=== PATIENT | female | born 1945 | race Caucasian/White ===

== ENCOUNTER 2017-12-08 17:15 | Inpatient (IN) | payer MEDICARE, OTHER ==
[~2017-12-08] VITALS: Ht 165.1 cm; Wt 97.1 kg
[~2017-12-08 17:15] MED LIST: ACET325T9 PO; ACET500T33 PO; ACET500T68 PO; ALEN70TA3 PO; ALEN70TA5 PO; ASPI-630 PO; ATOR10TA PO; ATOR10TA60 PO; BUSP10TA PO; BUSP15TA PO; CALC500T13 PO; CALC650T6 PO; CHOL20002 PO; CHOL500050 PO; CLON0.5T3 PO; CRAN1TAB6 PO; DEXT1CAP PO; DIVA125C PO; DIVA250T PO; DOCU-109 PO; FAMO-63 PO; FENO54TA PO; FLUV25TA PO; HYDR25SU18 RC; INSU100I11 SQ; INSU100I17 SQ; INSU100V13 SQ; INSU100V8 SQ; LACT1CAP6 PO; LEVO25TA4 PO; LISI-377 PO; LORA0.5T96 PO; MAG30ORA2 PO; MAGN400O7 PO; MELA5TAB PO; MENT71OI TP; METH29OI TP; MULT1TAB52 PO; NYST15PO9 TP; OXCA300T PO; QUET25TA5 PO; QUET50TA5 PO; TRAM50TA PO; TRAZ50TA15 PO; TRIA15CR3 TP; VENL150C PO; WITC1MED18 TP; [UNRECOGNIZED DRUG - CODE] PO
[2017-12-08] MEDS ORDERED: QUET25TA5 PO (18:24)
[2017-12-08] MEDS ORDERED: PEPPERMINT OIL PO (18:24)
[2017-12-08] MEDS ORDERED: LACT1CAP2 PO (18:24)
[2017-12-08] MEDS ORDERED: OMEP20CA9 PO (18:24)
[2017-12-08] MEDS ORDERED: QUET25TA PO (18:24)
[2017-12-08 18:30] LABS: BASO % 1 % (0-3); EOS # 0.3 x10^3/uL (0.0-0.7); EOS % 3 % (0-3); HEMATOCRIT 40.5 % (36.0-47.0); HEMOGLOBIN 13.8 g/dL (12.0-15.5); LYMPH # 2.4 x10^3/uL (1.0-4.8); LYMPH % 26 % (24-48); MEAN CORPUSCULAR HEMOGLOBIN 31 pg (25-35); MEAN CORPUSCULAR HGB CONC 34 g/dL (31-37); MEAN CORPUSCULAR VOLUME 90 fL (79-100); MONO # 0.4 x10^3/uL (0.0-1.1); MONO % 5 % (0-9); NEUT % 66 % (31-73); PLATELET COUNT 144 x10^3/uL (140-400); RED BLOOD COUNT 4.51 x10^6/uL (3.50-5.40); WHITE BLOOD COUNT 9.1 x10^3/uL (4.0-11.0)
[2017-12-08 18:32] LABS: ALBUMIN 3.6 g/dL (3.4-5.0); ALK PHOS 85 U/L (46-116); ALT (SGPT) 47 U/L (14-59); ANION GAP 8 (6-14); AST (SGOT) 33 U/L (15-37); BLOOD UREA NITROGEN 14 mg/dL (7-20); BUN/CREATININE RATIO 23 (6-20); CALCIUM 9.5 mg/dL (8.5-10.1); CARBON DIOXIDE 29 mmol/L (21-32); CHLORIDE 104 mmol/L (98-107); CREATININE 0.6 mg/dL (0.6-1.0); GFR 98.5; GLUCOSE 128 mg/dL (70-99); MAGNESIUM 1.7 mg/dL (1.8-2.4); SODIUM 141 mmol/L (136-145); TOTAL BILIRUBIN 0.4 mg/dL (0.2-1.0); TOTAL PROTEIN 7.3 g/dL (6.4-8.2)
[2017-12-08 18:33] LABS: VAL ACID < 3 mcg/mL (50-100)
[2017-12-08 18:34] LABS: POTASSIUM 3.9 mmol/L (3.5-5.1)
--- NOTE | 2017-12-08 18:38 | EKG ---
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
[2017-12-08 21:10] LABS: CLARITY,URINE HAZY; COLOR,URINE YELLOW
[2017-12-08 21:12] LABS: BACTERIA,URINE MANY /HPF (0-FEW); BILIRUBIN,URINE NEG (NEG); GLUCOSE,URINE NEG (NEG); NITRITE,URINE NEG (NEG); SQUAMOUS EPITHELIAL CELL,UR MOD /LPF; UROBILINOGEN,URINE 0.2 mg/dL (0.2 mg/dL)
[2017-12-08] MEDS ORDERED: NYST60PO TP (21:40)
[2017-12-08] MEDS ORDERED: INSU100I17 SQ ×3 (21:40)
[2017-12-08] MEDS ORDERED: TRIA15CR50 TP (21:40)
[2017-12-08] MEDS ORDERED: QUEtiapine 25 MG TABLET. PO PRN (21:45)
--- NOTE | 2017-12-08 21:52 | PDOC ---
Exam Note: Marcelo Note: Please also refer to the separate dictated note~for this date of service dictated separately.~Patient seen individually. Discussed the patient with Nursing staff reviewed the chart.~Reviewed interim history and current functioning. Reviewed vital signs,~Labs/ Radiology~and current medications noted below. Continue current treatment with the changes noted in the dictated addendum note Assessment: Vital Signs: Vital Signs Date Time Temp Pulse Resp B/P (MAP) Pulse Ox O2 Delivery O2 Flow Rate FiO2 12/08/17 17:15 98.1 96 99 Room Air Labs: Laboratory Tests Test 12/08/17 17:43 12/08/17 20:27 White Blood Count 9.1 x10^3/uL (4.0-11.0) Red Blood Count 4.51 x10^6/uL (3.50-5.40) Hemoglobin 13.8 g/dL (12.0-15.5) Hematocrit 40.5 % (36.0-47.0) Mean Corpuscular Volume 90 fL (79-100) Mean Corpuscular Hemoglobin 31 pg (25-35) Mean Corpuscular Hemoglobin Concent 34 g/dL (31-37) Red Cell Distribution Width 14.0 % (11.5-14.5) Platelet Count 144 x10^3/uL (140-400) Neutrophils (%) (Auto) 66 % (31-73) Lymphocytes (%) (Auto) 26 % (24-48) Monocytes (%) (Auto) 5 % (0-9) Eosinophils (%) (Auto) 3 % (0-3) Basophils (%) (Auto) 1 % (0-3) Neutrophils # (Auto) 6.0 x10^3uL (1.8-7.7) Lymphocytes # (Auto) 2.4 x10^3/uL (1.0-4.8) Monocytes # (Auto) 0.4 x10^3/uL (0.0-1.1) Eosinophils # (Auto) 0.3 x10^3/uL (0.0-0.7) Basophils # (Auto) 0.0 x10^3/uL (0.0-0.2) Sodium Level 141 mmol/L (136-145) Potassium Level 3.9 mmol/L (3.5-5.1) Chloride Level 104 mmol/L (98-107) Carbon Dioxide Level 29 mmol/L (21-32) Anion Gap 8 (6-14) Blood Urea Nitrogen 14 mg/dL (7-20) Creatinine 0.6 mg/dL (0.6-1.0) Estimated GFR (Cockcroft-Gault) 98.5 BUN/Creatinine Ratio 23 (6-20) H Glucose Level 128 mg/dL (70-99) H Calcium Level 9.5 mg/dL (8.5-10.1) Magnesium Level 1.7 mg/dL (1.8-2.4) L Total Bilirubin 0.4 mg/dL (0.2-1.0) Aspartate Amino Transferase (AST) 33 U/L (15-37) Alanine Aminotransferase (ALT) 47 U/L (14-59) Alkaline Phosphatase 85 U/L (46-116) Total Protein 7.3 g/dL (6.4-8.2) Albumin 3.6 g/dL (3.4-5.0) Albumin/Globulin Ratio 1.0 (1.0-1.7) Valproic Acid Level < 3 mcg/mL (50-100) L Valproic Acid Last Dose Date 12/08/17 Valproic Acid Last Dose Time 0800 Urine Collection Type Unknown Urine Color Yellow Urine Clarity Hazy Urine pH 6.0 Urine Specific [place] 1.015 Urine Protein Neg (NEG-TRACE) Urine Glucose (UA) Neg mg/dL (NEG) Urine Ketones (Stick) Neg mg/dL (NEG) Urine Blood Neg (NEG) Urine Nitrite Neg (NEG) Urine Bilirubin Neg (NEG) Urine Urobilinogen Dipstick 0.2 mg/dL (0.2 mg/dL) Urine Leukocyte Esterase Small (NEG) Urine RBC 1-2 /HPF (0-2) Urine WBC 5-10 /HPF (0-4) Urine Squamous Epithelial Cells Mod /LPF Urine Bacteria Many /HPF (0-FEW) Urine Mucus Slight /LPF Current Medications: Meds: Current Medications Clonazepam (KlonoPIN) 0.5 mg BID@1200,2100 PO ; Start 12/09/17 at 12:00; Status UNV Quetiapine Fumarate (SEROquel) 25 mg TID PO ; Start 12/09/17 at 09:00; Status UNV Quetiapine Fumarate (SEROquel) 25 mg PRN Q2HR PRN PO ANXIETY / AGITATION; Start 12/08/17 at 21:45; Status UNV Trazodone HCl (Desyrel) 50 mg TIDWMEALS PO ; Start 12/09/17 at 08:00; Status UNV Melatonin 6 mg PRN QHS PRN PO INSOMNIA; Start 12/08/17 at 21:45; Status UNV Active Scripts Active Reported Triamcinolone Acetonide 15 Gm Cream..g. 1 Porsche TP PRN TID PRN Nystop (Nystatin) 60 Gm Powder 1 Porsche TP PRN TID PRN Novolog Flexpen (Insulin Aspart) 100 Unit/1 Ml Insuln.pen 25 Unit SQ DAILYBFRLUN Novolog Flexpen (Insulin Aspart) 100 Unit/1 Ml Insuln.pen 15 Unit SQ DAILYWSUP Novolog Flexpen (Insulin Aspart) 100 Unit/1 Ml Insuln.pen 10 Unit SQ DAILYWBKFT [IBgard pepermint oil] 90mg Cap 90 Mg PO TIDWMEALS Omeprazole 20 Mg Capsule.dr 20 Mg PO DAILY06 Seroquel (Quetiapine Fumarate) 25 Mg Tablet 25 Mg PO PRN Q2HR PRN Quetiapine Fumarate 25 Mg Tablet 25 Mg PO TID Trazodone Hcl 50 Mg Tablet 50 Mg PO TIDWMEALS Clonazepam 0.5 Mg Tablet 0.5 Mg PO BID@1200,2100 Calmoseptine Ointment (Menthol/Zinc Oxide) 71 Gm Oint...g. 1 Porsche TP PRN PRN Anusol-Hc (Hydrocortisone Acetate) 25 Mg Supp.rect 25 Mg RC PRN DAILY PRN Probiotic (Lactobacillus Acidophilus) 1 Each Capsule 1 Cap PO BID Lantus (Insulin Glargine,Hum.rec.anlog) 100 Unit/1 Ml Vial 45 Units SQ QHS Analgesic [place] (Methyl Salicylate/Menthol) 29 Gm Oint...g. 1 Porsche TP PRN QID PRN Mag-Al Plus Xs Suspension (Mag Hydrox/Al Hydrox/Simeth) 30 Ml Oral.susp 15 Ml PO PRN BFRMEALHC PRN Levothyroxine Sodium 25 Mcg Tablet 25 Mcg PO DAILY06 Melatonin 5 Mg Tablet 5 Mg PO PRN QHS PRN Colace (Docusate Sodium) 100 Mg Capsule 100 Mg PO PRN BID PRN Hold for Loose stools Milk Of Magnesia (Magnesium Hydroxide) 400 Mg/5 Ml Oral.susp 2,400 Mg PO PRN QHS PRN Vitamin D3 (Cholecalciferol (Vitamin D3)) 50,000 Unit Capsule 50,000 Unit PO QMONTH Administer on the 15th of every Month Zestril (Lisinopril) 10 Mg Tablet 10 Mg PO DAILY Hold for SBP less than 100. After a held dose, reassess in 2 hours. If SBP is above threshold admminister dose as ordered. If SBP is below threshold, contact provider for additional instructions Oyster Shell Calcium (Calcium Carbonate) 500 Mg Tablet 1,000 Mg PO DAILY Multivitamins (Multivitamin) 1 Each Tablet 1 Tab PO DAILYWSUP Fenofibrate 54 Mg Tablet 54 Mg PO QHS I have reviewed the current psychotropics carefully including drug interactions. Risk benefit ratio favors no change other than as noted in my dictated progress note. Diagnosis: Problems: (1) Dementia (2) Anxiety (3) IMPULSE DISORDER, UNSPECIFIED (4) Obsessive compulsive disorder (5) Dementia (6) Impulse control disorder (7) Medical clearance for psychiatric admission (8) Intellectual disability IDA LAINEZ MD Dec 08, 2017 21:52
[2017-12-08 22:02] VITALS: BP 139/66
[2017-12-08] MEDS: MELATONIN 3 MG TABLET PO PRN (22:03)
[2017-12-08] MEDS: clonazePAM 0.5 MG TABLET PO SCH (22:03)
[2017-12-08] MEDS: QUEtiapine 25 MG TABLET. PO SCH (22:03)
[2017-12-08] MEDS ORDERED: HYDROCORTISONE ACETATE 25 MG SUPP.RECT RC PRN (22:30)
[2017-12-08] MEDS ORDERED: MAG HYDROX/AL HYDROX/SIMETH 30 ML ORAL.SUSP PO PRN (22:30)
[2017-12-08] MEDS ORDERED: DOCUSATE SODIUM 100 MG CAPSULE PO PRN (22:30)
[2017-12-08] MEDS ORDERED: METHYL SALICYLATE/MENTHOL TOPICAL OINTMENT 29GM TUBE. TP PRN (22:30)
[2017-12-08] MEDS ORDERED: TRIAMCINOLONE ACETONIDE 0.5% TOPICAL CREAM 15GM TUBE. TP PRN (22:30)
[2017-12-08] MEDS ORDERED: MAGNESIUM HYDROXIDE 2,400 MG/30 ML ORAL.SUSP. PO PRN (22:30)
[2017-12-08] MEDS ORDERED: NYSTATIN TOPICAL POWDER 15GM BOTTLE. TP PRN (22:30)
[2017-12-08] MEDS ORDERED: MENTHOL/ZINC OXIDE TOPICAL OINTMENT 113GM JAR. TP PRN (22:30)
[2017-12-08 22:44] VITALS: BP 139/66
[2017-12-09] MEDS: LEVOTHYROXINE 25 MCG TABLET. PO SCH (05:53)
[2017-12-09 06:00] VITALS: BP 132/46
[2017-12-09] MEDS ORDERED: PEPPERMINT OIL PO SCH (08:00)
[2017-12-09] MEDS: LISINOPRIL 10 MG TABLET PO SCH (09:00)
[2017-12-09] MEDS ORDERED: FENOFIBRATE NANOCRYSTALLIZED 48 MG TABLET PO ONE (09:00)
[2017-12-09] MEDS ORDERED: MULTIVITAMIN with MINERAL TABLET. ONE (09:00)
[2017-12-09] MEDS: PANTOPRAZOLE 40 MG TABLET. PO SCH (09:15)
[2017-12-09] MEDS: traZODone 50 MG TABLET. PO SCH ×3 (09:15→17:36)
[2017-12-09] MEDS: CEPHALEXIN 250 MG CAPSULE PO SCH ×2 (09:16→20:13)
[2017-12-09] MEDS: INSULIN ASPART 300 UNITS/3 ML INSULN.PEN SQ SCH ×3 (09:16→17:35)
[2017-12-09] MEDS: CALCIUM CARBONATE 500 MG TABLET PO SCH (09:16)
[2017-12-09] MEDS: LACTOBACILLUS RHAMNOSUS GG 1 CAPSULE. PO SCH ×2 (09:16→20:13)
[2017-12-09 09:22] VITALS: BP 110/55
[2017-12-09] MEDS: QUEtiapine 25 MG TABLET. PO SCH ×3 (09:22→20:13)
[2017-12-09 11:07] LABS: THYROID STIM HORMONE (TSH) 0.872 uIU/mL (0.358-3.740)
[2017-12-09 12:07] LABS: T3 TOTAL 124 ng/dL (71-180); THYROXINE 10.1 ug/dL (4.5-12.0)
[2017-12-09] MEDS: clonazePAM 0.5 MG TABLET PO SCH ×2 (12:31→20:13)
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
[2017-12-09 16:21] VITALS: BP 108/54
[2017-12-09] MEDS: MULTIVITAMIN with MINERAL TABLET. PO SCH (17:36)
--- NOTE | 2017-12-09 19:20 | PDOC ---
Exam Note: Marcelo Note: Please also refer to the separate dictated note~for this date of service dictated separately.~Patient seen individually. Discussed the patient with Nursing staff reviewed the chart.~Reviewed interim history and current functioning. Reviewed vital signs,~Labs/ Radiology~and current medications noted below. Continue current treatment with the changes noted in the dictated addendum note Assessment: Vital Signs: Vital Signs Date Time Temp Pulse Resp B/P (MAP) Pulse Ox O2 Delivery O2 Flow Rate FiO2 12/09/17 16:21 98.6 89 20 108/54 (72) 92 12/08/17 17:15 Room Air Labs: Laboratory Tests Test 12/08/17 20:27 12/09/17 09:14 12/09/17 11:42 12/09/17 17:01 Urine Collection Type Unknown Urine Color Yellow Urine Clarity Hazy Urine pH 6.0 Urine Specific [place] 1.015 Urine Protein Neg (NEG-TRACE) Urine Glucose (UA) Neg mg/dL (NEG) Urine Ketones (Stick) Neg mg/dL (NEG) Urine Blood Neg (NEG) Urine Nitrite Neg (NEG) Urine Bilirubin Neg (NEG) Urine Urobilinogen Dipstick 0.2 mg/dL (0.2 mg/dL) Urine Leukocyte Esterase Small (NEG) Urine RBC 1-2 /HPF (0-2) Urine WBC 5-10 /HPF (0-4) Urine Squamous Epithelial Cells Mod /LPF Urine Bacteria Many /HPF (0-FEW) Urine Mucus Slight /LPF Glucose (Fingerstick) 250 mg/dL (70-99) H 286 mg/dL (70-99) H 128 mg/dL (70-99) H Test 12/09/17 19:07 Glucose (Fingerstick) 156 mg/dL (70-99) H Current Medications: Meds: Current Medications Clonazepam (KlonoPIN) 0.5 mg BID@1200,2100 PO Last administered on 12/09/17at 12 :31; Start 12/08/17 at 22:00 Quetiapine Fumarate (SEROquel) 25 mg TID PO Last administered on 12/09/17at 14: 52; Start 12/08/17 at 22:00 Quetiapine Fumarate (SEROquel) 25 mg PRN Q2HR PRN PO ANXIETY / AGITATION; Start 12/08/17 at 21:45 Trazodone HCl (Desyrel) 50 mg TIDWMEALS PO Last administered on 12/09/17at 17:36 ; Start 12/09/17 at 08:00 Melatonin 6 mg PRN QHS PRN PO INSOMNIA Last administered on 12/08/17at 22:03; Start 12/08/17 at 21:45 Calcium Carbonate/ Glycine (Oscal) 1,000 mg DAILYWBKFT PO Last administered on 12/09/17at 09:16; Start 12/09/17 at 08:00 Vitamin D (Vitamin D3) 50,000 unit QMONTH PO ; Start 01/07/18 at 09:00 Docusate Sodium (Colace) 100 mg PRN BID PRN PO CONSTIPATION; Start 12/08/17 at 22:30 Hydrocortisone Acetate (Anucort-Hc) 25 mg PRN DAILY PRN RC burning or blood in BM; Start 12/08/17 at 22:30 Insulin Aspart (NovoLOG) 10 units DAILYWBKFT SQ Last administered on 12/09/17at 09:16; Start 12/09/17 at 08:00 Insulin Aspart (NovoLOG) 15 units DAILYWSUP SQ Last administered on 12/09/17at 17:35; Start 12/09/17 at 17:00 Insulin Aspart (NovoLOG) 25 units DAILYBFRLUN SQ Last administered on at 12:33; Start 12/09/17 at 11:30 Levothyroxine Sodium (Synthroid) 25 mcg DAILY06 PO Last administered on at 05:53; Start 12/09/17 at 06:00 Lisinopril (Prinivil) 10 mg DAILY PO ; Start 12/09/17 at 09:00 Al Hydroxide/Mg Hydroxide (Mylanta Plus Xs) 15 ml PRN BFRMEALHC PRN PO DYSPEPSIA; Start 12/08/17 at 22:30 Magnesium Hydroxide (Milk Of Magnesia) 2,400 mg PRN QHS PRN PO CONSTIPATION; Start 12/08/17 at 22:30 Calamine/Phenol (Calmoseptine) 1 porsche PRN TID PRN TP SKIN PROTECTION; Start at 22:30 Multi-Ingredient Ointment (Analgesic [place]) 1 porsche PRN QID PRN TP MUSCLE PAIN; Start 12/08/17 at 22:30 Nystatin (Nystop) 1 porsche PRN TID PRN TP RASH; Start 12/08/17 at 22:30 Triamcinolone Acetonide (Aristocort) 1 porsche PRN TID PRN TP RASH; Start 12/08/17 at 22:30 Fenofibrate (Tricor) 48 mg QHS PO ; Start 12/09/17 at 21:00 Insulin Glargine (Lantus) 45 units QHS SQ ; Start 12/09/17 at 21:00; Status Cancel Lactobacillus Rhamnosus (Culturelle) 1 cap BID PO Last administered on at 09:16; Start 12/09/17 at 09:00 Multivitamins/ Calcium (Thera-M Plus) 1 tab DAILYWSUP PO Last administered on at 17:36; Start 12/09/17 at 17:00 Pantoprazole Sodium (Protonix) 40 mg DAILYAC PO Last administered on 12/09/17at 09:15; Start 12/09/17 at 07:30 Non-Formulary Medication 90 mg TIDWMEALS PO ; Start 12/09/17 at 08:00; Stop at 08:00; Status DC Insulin Detemir (Levemir) 45 units QHS SQ ; Start 12/09/17 at 21:00 Olanzapine (ZyPREXA ZYDIS) 2.5 mg PRN Q2HR PRN PO PSYCHOSIS; Start 12/08/17 at 23:30 Cephalexin HCl (Keflex) 500 mg BID PO Last administered on 12/09/17at 09:16; Start 12/09/17 at 09:00 Fluvoxamine Maleate (Luvox) 25 mg DAILY PO ; Start 12/10/17 at 09:00; Stop at 08:59 Fluvoxamine Maleate (Luvox) 50 mg DAILY PO ; Start 12/13/17 at 09:00 Active Scripts Active Reported Triamcinolone Acetonide 15 Gm Cream..g. 1 Porsche TP PRN TID PRN Nystop (Nystatin) 60 Gm Powder 1 Porsche TP PRN TID PRN Novolog Flexpen (Insulin Aspart) 100 Unit/1 Ml Insuln.pen 25 Unit SQ DAILYBFRLUN Novolog Flexpen (Insulin Aspart) 100 Unit/1 Ml Insuln.pen 15 Unit SQ DAILYWSUP Novolog Flexpen (Insulin Aspart) 100 Unit/1 Ml Insuln.pen 10 Unit SQ DAILYWBKFT [IBgard pepermint oil] 90mg Cap 90 Mg PO TIDWMEALS Omeprazole 20 Mg Capsule.dr 20 Mg PO DAILY06 Seroquel (Quetiapine Fumarate) 25 Mg Tablet 25 Mg PO PRN Q2HR PRN Quetiapine Fumarate 25 Mg Tablet 25 Mg PO TID Trazodone Hcl 50 Mg Tablet 50 Mg PO TIDWMEALS Clonazepam 0.5 Mg Tablet 0.5 Mg PO BID@1200,2100 Calmoseptine Ointment (Menthol/Zinc Oxide) 71 Gm Oint...g. 1 Porsche TP PRN PRN Anusol-Hc (Hydrocortisone Acetate) 25 Mg Supp.rect 25 Mg RC PRN DAILY PRN Probiotic (Lactobacillus Acidophilus) 1 Each Capsule 1 Cap PO BID Lantus (Insulin Glargine,Hum.rec.anlog) 100 Unit/1 Ml Vial 45 Units SQ QHS Analgesic [place] (Methyl Salicylate/Menthol) 29 Gm Oint...g. 1 Porsche TP PRN QID PRN Mag-Al Plus Xs Suspension (Mag Hydrox/Al Hydrox/Simeth) 30 Ml Oral.susp 15 Ml PO PRN BFRMEALHC PRN Levothyroxine Sodium 25 Mcg Tablet 25 Mcg PO DAILY06 Melatonin 5 Mg Tablet 5 Mg PO PRN QHS PRN Colace (Docusate Sodium) 100 Mg Capsule 100 Mg PO PRN BID PRN Hold for Loose stools Milk Of Magnesia (Magnesium Hydroxide) 400 Mg/5 Ml Oral.susp 2,400 Mg PO PRN QHS PRN Vitamin D3 (Cholecalciferol (Vitamin D3)) 50,000 Unit Capsule 50,000 Unit PO QMONTH Administer on the 15 of every Month Zestril (Lisinopril) 10 Mg Tablet 10 Mg PO DAILY Hold for SBP less than 100. After a held dose, reassess in 2 hours. If SBP is above threshold admminister dose as ordered. If SBP is below threshold, contact provider for additional instructions Oyster Shell Calcium (Calcium Carbonate) 500 Mg Tablet 1,000 Mg PO DAILY Multivitamins (Multivitamin) 1 Each Tablet 1 Tab PO DAILYWSUP Fenofibrate 54 Mg Tablet 54 Mg PO QHS I have reviewed the current psychotropics carefully including drug interactions. Risk benefit ratio favors no change other than as noted in my dictated progress note. Diagnosis: Problems: (1) Anxiety (2) Dementia (3) Dementia (4) Impulse control disorder (5) Obsessive compulsive disorder (6) Medical clearance for psychiatric admission (7) Mood disorder (8) IMPULSE DISORDER, UNSPECIFIED (9) Intellectual disability (10) Impulse control disorder IDA LAINEZ MD Dec 09, 2017 19:20
[2017-12-09] MEDS: FENOFIBRATE NANOCRYSTALLIZED 48 MG TABLET PO SCH (20:14)
[2017-12-09] MEDS: MELATONIN 3 MG TABLET PO PRN (20:15)
[2017-12-09] MEDS: INSULIN DETEMIR 300 UNITS/3 ML INSULN.PEN. SQ SCH (20:16)
[2017-12-09] MEDS ORDERED: INSULIN GLARGINE 300 UNITS/3 ML INSULN.PEN. SQ SCH (21:00)
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
[2017-12-09 22:06] LABS: HEMOGLOBIN A1C 6.9 % (4.8-5.6)
[2017-12-10] MEDS: LEVOTHYROXINE 25 MCG TABLET. PO SCH (06:12)
[2017-12-10 06:46] VITALS: BP 122/78
[2017-12-10] MEDS: CALCIUM CARBONATE 500 MG TABLET PO SCH (07:58)
[2017-12-10] MEDS: traZODone 50 MG TABLET. PO SCH ×3 (07:58→17:12)
[2017-12-10] MEDS: PANTOPRAZOLE 40 MG TABLET. PO SCH (07:58)
[2017-12-10] MEDS: INSULIN ASPART 300 UNITS/3 ML INSULN.PEN SQ SCH ×3 (07:59→17:13)
[2017-12-10] MEDS: CEPHALEXIN 250 MG CAPSULE PO SCH ×2 (07:59→20:07)
[2017-12-10] MEDS: LACTOBACILLUS RHAMNOSUS GG 1 CAPSULE. PO SCH ×2 (07:59→20:07)
[2017-12-10] MEDS: QUEtiapine 25 MG TABLET. PO SCH ×3 (08:01→20:07)
[2017-12-10] MEDS: LISINOPRIL 10 MG TABLET PO SCH (08:01)
[2017-12-10] MEDS ORDERED: MULTIVITAMIN with MINERAL TABLET. ONE (09:00)
[2017-12-10] MEDS ORDERED: FENOFIBRATE NANOCRYSTALLIZED 48 MG TABLET PO ONE (09:00)
[2017-12-10] MEDS: clonazePAM 0.5 MG TABLET PO SCH ×2 (12:09→20:09)
[2017-12-10 15:45] VITALS: BP 121/58
[2017-12-10] MEDS: MULTIVITAMIN with MINERAL TABLET. PO SCH (17:12)
--- NOTE | 2017-12-10 18:45 | PDOC ---
Exam Note: Marcelo Note: Please also refer to the separate dictated note~for this date of service dictated separately.~Patient seen individually. Discussed the patient with Nursing staff reviewed the chart.~Reviewed interim history and current functioning. Reviewed vital signs,~Labs/ Radiology~and current medications noted below. Continue current treatment with the changes noted in the dictated addendum note Assessment: Vital Signs: Vital Signs Date Time Temp Pulse Resp B/P (MAP) Pulse Ox O2 Delivery O2 Flow Rate FiO2 12/10/17 15:45 97.8 77 18 121/58 (79) 95 12/08/17 17:15 Room Air I&O Intake and Output 12/10/17 07:00 Intake Total 1200 ml Balance 1200 ml Intake Oral 1200 ml # Voids 1 Labs: Laboratory Tests Test 12/09/17 19:07 12/10/17 07:26 12/10/17 11:31 12/10/17 16:38 Glucose (Fingerstick) 156 mg/dL (70-99) H 120 mg/dL (70-99) H 201 mg/dL (70-99) H 247 mg/dL (70-99) H Current Medications: Meds: Current Medications Clonazepam (KlonoPIN) 0.5 mg BID@1200,2100 PO Last administered on 12/10/17at 12 :09; Start 12/08/17 at 22:00 Quetiapine Fumarate (SEROquel) 25 mg TID PO Last administered on 12/10/17at 14: 11; Start 12/08/17 at 22:00 Quetiapine Fumarate (SEROquel) 25 mg PRN Q2HR PRN PO ANXIETY / AGITATION; Start 12/08/17 at 21:45 Trazodone HCl (Desyrel) 50 mg TIDWMEALS PO Last administered on 12/10/17at 17:12 ; Start 12/09/17 at 08:00 Melatonin 6 mg PRN QHS PRN PO INSOMNIA Last administered on 12/09/17at 20:15; Start 12/08/17 at 21:45 Calcium Carbonate/ Glycine (Oscal) 1,000 mg DAILYWBKFT PO Last administered on 12/10/17at 07:58; Start 12/09/17 at 08:00 Vitamin D (Vitamin D3) 50,000 unit QMONTH PO ; Start 01/07/18 at 09:00 Docusate Sodium (Colace) 100 mg PRN BID PRN PO CONSTIPATION; Start 12/08/17 at 22:30 Hydrocortisone Acetate (Anucort-Hc) 25 mg PRN DAILY PRN RC burning or blood in BM; Start 12/08/17 at 22:30 Insulin Aspart (NovoLOG) 10 units DAILYWBKFT SQ Last administered on 12/10/17at 07:59; Start 12/09/17 at 08:00 Insulin Aspart (NovoLOG) 15 units DAILYWSUP SQ Last administered on 12/10/17at 17:13; Start 12/09/17 at 17:00 Insulin Aspart (NovoLOG) 25 units DAILYBFRLUN SQ Last administered on at 12:08; Start 12/09/17 at 11:30 Levothyroxine Sodium (Synthroid) 25 mcg DAILY06 PO Last administered on at 06:12; Start 12/09/17 at 06:00 Lisinopril (Prinivil) 10 mg DAILY PO Last administered on 12/10/17at 08:01; Start 12/09/17 at 09:00 Al Hydroxide/Mg Hydroxide (Mylanta Plus Xs) 15 ml PRN BFRMEALHC PRN PO DYSPEPSIA; Start 12/08/17 at 22:30 Magnesium Hydroxide (Milk Of Magnesia) 2,400 mg PRN QHS PRN PO CONSTIPATION; Start 12/08/17 at 22:30 Calamine/Phenol (Calmoseptine) 1 porsche PRN TID PRN TP SKIN PROTECTION; Start at 22:30 Multi-Ingredient Ointment (Analgesic [place]) 1 porsche PRN QID PRN TP MUSCLE PAIN; Start 12/08/17 at 22:30 Nystatin (Nystop) 1 posrche PRN TID PRN TP RASH; Start 12/08/17 at 22:30 Triamcinolone Acetonide (Aristocort) 1 porsche PRN TID PRN TP RASH; Start 12/08/17 at 22:30 Fenofibrate (Tricor) 48 mg QHS PO Last administered on 12/09/17at 20:14; Start 12/09/17 at 21:00 Insulin Glargine (Lantus) 45 units QHS SQ ; Start 12/09/17 at 21:00; Status Cancel Lactobacillus Rhamnosus (Culturelle) 1 cap BID PO Last administered on at 07:59; Start 12/09/17 at 09:00 Multivitamins/ Calcium (Thera-M Plus) 1 tab DAILYWSUP PO Last administered on at 17:12; Start 12/09/17 at 17:00 Pantoprazole Sodium (Protonix) 40 mg DAILYAC PO Last administered on 12/10/17at 07:58; Start 12/09/17 at 07:30 Non-Formulary Medication 90 mg TIDWMEALS PO ; Start 12/09/17 at 08:00; Stop at 08:00; Status DC Insulin Detemir (Levemir) 45 units QHS SQ Last administered on 12/09/17at 20:16 ; Start 12/09/17 at 21:00 Olanzapine (ZyPREXA ZYDIS) 2.5 mg PRN Q2HR PRN PO PSYCHOSIS; Start 12/08/17 at 23:30 Cephalexin HCl (Keflex) 500 mg BID PO Last administered on 12/10/17at 07:59; Start 12/09/17 at 09:00 Fluvoxamine Maleate (Luvox) 25 mg DAILY PO Last administered on 12/10/17at 08:00 ; Start 12/10/17 at 09:00; Stop 12/13/17 at 08:59 Fluvoxamine Maleate (Luvox) 50 mg DAILY PO ; Start 12/13/17 at 09:00 Active Scripts Active Reported Triamcinolone Acetonide 15 Gm Cream..g. 1 Porsche TP PRN TID PRN Nystop (Nystatin) 60 Gm Powder 1 Porsche TP PRN TID PRN Novolog Flexpen (Insulin Aspart) 100 Unit/1 Ml Insuln.pen 25 Unit SQ DAILYBFRLUN Novolog Flexpen (Insulin Aspart) 100 Unit/1 Ml Insuln.pen 15 Unit SQ DAILYWSUP Novolog Flexpen (Insulin Aspart) 100 Unit/1 Ml Insuln.pen 10 Unit SQ DAILYWBKFT [IBgard pepermint oil] 90mg Cap 90 Mg PO TIDWMEALS Omeprazole 20 Mg Capsule.dr 20 Mg PO DAILY06 Seroquel (Quetiapine Fumarate) 25 Mg Tablet 25 Mg PO PRN Q2HR PRN Quetiapine Fumarate 25 Mg Tablet 25 Mg PO TID Trazodone Hcl 50 Mg Tablet 50 Mg PO TIDWMEALS Clonazepam 0.5 Mg Tablet 0.5 Mg PO BID@1200,2100 Calmoseptine Ointment (Menthol/Zinc Oxide) 71 Gm Oint...g. 1 Porsche TP PRN PRN Anusol-Hc (Hydrocortisone Acetate) 25 Mg Supp.rect 25 Mg RC PRN DAILY PRN Probiotic (Lactobacillus Acidophilus) 1 Each Capsule 1 Cap PO BID Lantus (Insulin Glargine,Hum.rec.anlog) 100 Unit/1 Ml Vial 45 Units SQ QHS Analgesic [place] (Methyl Salicylate/Menthol) 29 Gm Oint...g. 1 Porsche TP PRN QID PRN Mag-Al Plus Xs Suspension (Mag Hydrox/Al Hydrox/Simeth) 30 Ml Oral.susp 15 Ml PO PRN BFRMEALHC PRN Levothyroxine Sodium 25 Mcg Tablet 25 Mcg PO DAILY06 Melatonin 5 Mg Tablet 5 Mg PO PRN QHS PRN Colace (Docusate Sodium) 100 Mg Capsule 100 Mg PO PRN BID PRN Hold for Loose stools Milk Of Magnesia (Magnesium Hydroxide) 400 Mg/5 Ml Oral.susp 2,400 Mg PO PRN QHS PRN Vitamin D3 (Cholecalciferol (Vitamin D3)) 50,000 Unit Capsule 50,000 Unit PO QMONTH Administer on the 15th of every Month Zestril (Lisinopril) 10 Mg Tablet 10 Mg PO DAILY Hold for SBP less than 100. After a held dose, reassess in 2 hours. If SBP is above threshold admminister dose as ordered. If SBP is below threshold, contact provider for additional instructions Oyster Shell Calcium (Calcium Carbonate) 500 Mg Tablet 1,000 Mg PO DAILY Multivitamins (Multivitamin) 1 Each Tablet 1 Tab PO DAILYWSUP Fenofibrate 54 Mg Tablet 54 Mg PO QHS I have reviewed the current psychotropics carefully including drug interactions. Risk benefit ratio favors no change other than as noted in my dictated progress note. Diagnosis: Problems: (1) Anxiety (2) Dementia (3) Dementia (4) Impulse control disorder (5) Obsessive compulsive disorder (6) Medical clearance for psychiatric admission (7) Mood disorder (8) IMPULSE DISORDER, UNSPECIFIED (9) Impulse control disorder (10) Intellectual disability IDA LAINEZ MD Dec 10, 2017 18:45
[2017-12-10] MEDS: FENOFIBRATE NANOCRYSTALLIZED 48 MG TABLET PO SCH (20:08)
[2017-12-10] MEDS: INSULIN DETEMIR 300 UNITS/3 ML INSULN.PEN. SQ SCH (20:08)
[2017-12-11] MEDS: LEVOTHYROXINE 25 MCG TABLET. PO SCH (05:06)
[2017-12-11 06:25] VITALS: BP 131/66
[2017-12-11] MEDS: LACTOBACILLUS RHAMNOSUS GG 1 CAPSULE. PO SCH ×2 (08:29→19:19)
[2017-12-11] MEDS: QUEtiapine 25 MG TABLET. PO SCH ×3 (08:29→19:20)
[2017-12-11] MEDS: CEPHALEXIN 250 MG CAPSULE PO SCH ×2 (08:30→19:20)
[2017-12-11] MEDS: CALCIUM CARBONATE 500 MG TABLET PO SCH (08:30)
[2017-12-11] MEDS: LISINOPRIL 10 MG TABLET PO SCH (08:30)
[2017-12-11] MEDS: PANTOPRAZOLE 40 MG TABLET. PO SCH (08:30)
[2017-12-11] MEDS: traZODone 50 MG TABLET. PO SCH ×3 (08:30→18:24)
[2017-12-11] MEDS: INSULIN ASPART 300 UNITS/3 ML INSULN.PEN SQ SCH ×3 (08:32→18:25)
[2017-12-11] MEDS ORDERED: FENOFIBRATE NANOCRYSTALLIZED 48 MG TABLET PO ONE (09:00)
[2017-12-11] MEDS ORDERED: MULTIVITAMIN with MINERAL TABLET. ONE (09:00)
[2017-12-11] MEDS: clonazePAM 0.5 MG TABLET PO SCH ×2 (12:04→19:21)
[2017-12-11 16:14] VITALS: BP 120/76
[2017-12-11] MEDS: MULTIVITAMIN with MINERAL TABLET. PO SCH (18:24)
--- NOTE | 2017-12-11 19:06 | PDOC ---
Exam Note: Marcelo Note: Please also refer to the separate dictated note~for this date of service dictated separately.~Patient seen individually. Discussed the patient with Nursing staff reviewed the chart.~Reviewed interim history and current functioning. Reviewed vital signs,~Labs/ Radiology~and current medications noted below. Continue current treatment with the changes noted in the dictated addendum note Assessment: Vital Signs: Vital Signs Date Time Temp Pulse Resp B/P (MAP) Pulse Ox O2 Delivery O2 Flow Rate FiO2 12/11/17 16:14 98.1 86 19 120/76 (91) 95 Room Air I&O Intake and Output 12/11/17 07:00 Intake Total 1680 ml Balance 1680 ml Intake Oral 1680 ml # Voids 2 Labs: Laboratory Tests Test 12/11/17 07:52 12/11/17 11:27 12/11/17 16:54 Glucose (Fingerstick) 170 mg/dL (70-99) H 341 mg/dL (70-99) H 222 mg/dL (70-99) H Current Medications: Meds: Current Medications Clonazepam (KlonoPIN) 0.5 mg BID@1200,2100 PO Last administered on 12/11/17at 12 :04; Start 12/08/17 at 22:00 Quetiapine Fumarate (SEROquel) 25 mg TID PO Last administered on 12/11/17at 14: 11; Start 12/08/17 at 22:00 Quetiapine Fumarate (SEROquel) 25 mg PRN Q2HR PRN PO ANXIETY / AGITATION; Start 12/08/17 at 21:45 Trazodone HCl (Desyrel) 50 mg TIDWMEALS PO Last administered on 12/11/17at 18:24 ; Start 12/09/17 at 08:00 Melatonin 6 mg PRN QHS PRN PO INSOMNIA Last administered on 12/09/17at 20:15; Start 12/08/17 at 21:45 Calcium Carbonate/ Glycine (Oscal) 1,000 mg DAILYWBKFT PO Last administered on 12/11/17at 08:30; Start 12/09/17 at 08:00 Vitamin D (Vitamin D3) 50,000 unit QMONTH PO ; Start 01/07/18 at 09:00 Docusate Sodium (Colace) 100 mg PRN BID PRN PO CONSTIPATION; Start 12/08/17 at 22:30 Hydrocortisone Acetate (Anucort-Hc) 25 mg PRN DAILY PRN RC burning or blood in BM; Start 12/08/17 at 22:30 Insulin Aspart (NovoLOG) 10 units DAILYWBKFT SQ Last administered on 12/11/17at 08:32; Start 12/09/17 at 08:00 Insulin Aspart (NovoLOG) 15 units DAILYWSUP SQ Last administered on 12/11/17at 18:25; Start 12/09/17 at 17:00 Insulin Aspart (NovoLOG) 25 units DAILYBFRLUN SQ Last administered on at 12:03; Start 12/09/17 at 11:30 Levothyroxine Sodium (Synthroid) 25 mcg DAILY06 PO Last administered on at 05:06; Start 12/09/17 at 06:00 Lisinopril (Prinivil) 10 mg DAILY PO Last administered on 12/11/17at 08:30; Start 12/09/17 at 09:00 Al Hydroxide/Mg Hydroxide (Mylanta Plus Xs) 15 ml PRN BFRMEALHC PRN PO DYSPEPSIA; Start 12/08/17 at 22:30 Magnesium Hydroxide (Milk Of Magnesia) 2,400 mg PRN QHS PRN PO CONSTIPATION; Start 12/08/17 at 22:30 Calamine/Phenol (Calmoseptine) 1 porsche PRN TID PRN TP SKIN PROTECTION; Start at 22:30 Multi-Ingredient Ointment (Analgesic [place]) 1 porsche PRN QID PRN TP MUSCLE PAIN; Start 12/08/17 at 22:30 Nystatin (Nystop) 1 porsche PRN TID PRN TP RASH; Start 12/08/17 at 22:30 Triamcinolone Acetonide (Aristocort) 1 porsche PRN TID PRN TP RASH; Start 12/08/17 at 22:30 Fenofibrate (Tricor) 48 mg QHS PO Last administered on 12/10/17at 20:08; Start 12/09/17 at 21:00 Insulin Glargine (Lantus) 45 units QHS SQ ; Start 12/09/17 at 21:00; Status Cancel Lactobacillus Rhamnosus (Culturelle) 1 cap BID PO Last administered on at 08:29; Start 12/09/17 at 09:00 Multivitamins/ Calcium (Thera-M Plus) 1 tab DAILYWSUP PO Last administered on at 18:24; Start 12/09/17 at 17:00 Pantoprazole Sodium (Protonix) 40 mg DAILYAC PO Last administered on 12/11/17at 08:30; Start 12/09/17 at 07:30 Non-Formulary Medication 90 mg TIDWMEALS PO ; Start 12/09/17 at 08:00; Stop at 08:00; Status DC Insulin Detemir (Levemir) 45 units QHS SQ Last administered on 12/10/17at 20:08 ; Start 12/09/17 at 21:00 Olanzapine (ZyPREXA ZYDIS) 2.5 mg PRN Q2HR PRN PO PSYCHOSIS; Start 12/08/17 at 23:30 Cephalexin HCl (Keflex) 500 mg BID PO Last administered on 12/11/17at 08:30; Start 12/09/17 at 09:00 Fluvoxamine Maleate (Luvox) 25 mg DAILY PO Last administered on 12/11/17at 08:30 ; Start 12/10/17 at 09:00; Stop 12/13/17 at 08:59 Fluvoxamine Maleate (Luvox) 50 mg DAILY PO ; Start 12/13/17 at 09:00; Stop at 09:01 Fluvoxamine Maleate (Luvox) 75 mg DAILY PO ; Start 12/16/17 at 09:01 Active Scripts Active Reported Triamcinolone Acetonide 15 Gm Cream..g. 1 Porsche TP PRN TID PRN Nystop (Nystatin) 60 Gm Powder 1 Porsche TP PRN TID PRN Novolog Flexpen (Insulin Aspart) 100 Unit/1 Ml Insuln.pen 25 Unit SQ DAILYBFRLUN Novolog Flexpen (Insulin Aspart) 100 Unit/1 Ml Insuln.pen 15 Unit SQ DAILYWSUP Novolog Flexpen (Insulin Aspart) 100 Unit/1 Ml Insuln.pen 10 Unit SQ DAILYWBKFT [IBgard pepermint oil] 90mg Cap 90 Mg PO TIDWMEALS Omeprazole 20 Mg Capsule.dr 20 Mg PO DAILY06 Seroquel (Quetiapine Fumarate) 25 Mg Tablet 25 Mg PO PRN Q2HR PRN Quetiapine Fumarate 25 Mg Tablet 25 Mg PO TID Trazodone Hcl 50 Mg Tablet 50 Mg PO TIDWMEALS Clonazepam 0.5 Mg Tablet 0.5 Mg PO BID@1200,2100 Calmoseptine Ointment (Menthol/Zinc Oxide) 71 Gm Oint...g. 1 Porsche TP PRN PRN Anusol-Hc (Hydrocortisone Acetate) 25 Mg Supp.rect 25 Mg RC PRN DAILY PRN Probiotic (Lactobacillus Acidophilus) 1 Each Capsule 1 Cap PO BID Lantus (Insulin Glargine,Hum.rec.anlog) 100 Unit/1 Ml Vial 45 Units SQ QHS Analgesic [place] (Methyl Salicylate/Menthol) 29 Gm Oint...g. 1 Porsche TP PRN QID PRN Mag-Al Plus Xs Suspension (Mag Hydrox/Al Hydrox/Simeth) 30 Ml Oral.susp 15 Ml PO PRN BFRMEALHC PRN Levothyroxine Sodium 25 Mcg Tablet 25 Mcg PO DAILY06 Melatonin 5 Mg Tablet 5 Mg PO PRN QHS PRN Colace (Docusate Sodium) 100 Mg Capsule 100 Mg PO PRN BID PRN Hold for Loose stools Milk Of Magnesia (Magnesium Hydroxide) 400 Mg/5 Ml Oral.susp 2,400 Mg PO PRN QHS PRN Vitamin D3 (Cholecalciferol (Vitamin D3)) 50,000 Unit Capsule 50,000 Unit PO QMONTH Administer on the 15th of every Month Zestril (Lisinopril) 10 Mg Tablet 10 Mg PO DAILY Hold for SBP less than 100. After a held dose, reassess in 2 hours. If SBP is above threshold admminister dose as ordered. If SBP is below threshold, contact provider for additional instructions Oyster Shell Calcium (Calcium Carbonate) 500 Mg Tablet 1,000 Mg PO DAILY Multivitamins (Multivitamin) 1 Each Tablet 1 Tab PO DAILYWSUP Fenofibrate 54 Mg Tablet 54 Mg PO QHS I have reviewed the current psychotropics carefully including drug interactions. Risk benefit ratio favors no change other than as noted in my dictated progress note. Diagnosis: Problems: (1) Anxiety (2) Dementia (3) Dementia (4) Impulse control disorder (5) Obsessive compulsive disorder (6) Medical clearance for psychiatric admission (7) Mood disorder (8) IMPULSE DISORDER, UNSPECIFIED (9) Impulse control disorder (10) Intellectual disability IDA LAINEZ MD Dec 11, 2017 19:06
[2017-12-11] MEDS: FENOFIBRATE NANOCRYSTALLIZED 48 MG TABLET PO SCH (19:21)
[2017-12-11] MEDS: INSULIN DETEMIR 300 UNITS/3 ML INSULN.PEN. SQ SCH (19:22)
[2017-12-12] MEDS: LEVOTHYROXINE 25 MCG TABLET. PO SCH (05:55)
[2017-12-12 06:04] VITALS: BP 131/66
[2017-12-12] MEDS: CALCIUM CARBONATE 500 MG TABLET PO SCH (08:30)
[2017-12-12] MEDS: QUEtiapine 25 MG TABLET. PO SCH ×3 (08:30→19:18)
[2017-12-12] MEDS: LISINOPRIL 10 MG TABLET PO SCH (08:31)
[2017-12-12] MEDS: LACTOBACILLUS RHAMNOSUS GG 1 CAPSULE. PO SCH ×2 (08:31→19:18)
[2017-12-12] MEDS: traZODone 50 MG TABLET. PO SCH ×3 (08:31→17:37)
[2017-12-12] MEDS: CEPHALEXIN 250 MG CAPSULE PO SCH ×2 (08:31→19:18)
[2017-12-12] MEDS: PANTOPRAZOLE 40 MG TABLET. PO SCH (08:31)
[2017-12-12] MEDS: INSULIN ASPART 300 UNITS/3 ML INSULN.PEN SQ SCH ×3 (08:33→17:38)
[2017-12-12] MEDS ORDERED: FENOFIBRATE NANOCRYSTALLIZED 48 MG TABLET PO ONE (09:00)
[2017-12-12] MEDS ORDERED: MULTIVITAMIN with MINERAL TABLET. ONE (09:00)
--- NOTE | 2017-12-12 09:42 | PN ---
DATE: 12/10/2017 PSYCHIATRIC PROGRESS NOTE This late entry 12/10/2017 covers elements not covered in my initial note 12/10/2017. SUBJECTIVE: I met with the patient several times evening of 12/10/2017 that she would want to visit with me 1 more time after each of the visits. She is less obsessive, repetitive, but still these symptoms persist. She is repeatedly calling her sister Ricky, received p.r.n. melatonin last evening, slept better. REVIEW OF SYSTEMS: Ambulation impaired with walker. No CV, , pulmonary, eye system symptoms on review. MENTAL STATUS EXAM: Oriented to herself and situation. Speech coherent, rapid. Abstraction fair, computation impaired, language function intact, attention span short. Mood and affect, intermittently labile. LABORATORY DATA: Reviewed. IMPRESSION: Bipolar 1 disorder, mixed, obsessive compulsive disorder, intellectual disability. PLAN: Treat the UTI. Continue current psychotropics. Gradually increase the Luvox. Rest unchanged. MAN Stuart LAINEZ MD DR: YO/bakari JOB#: [id number] / [id number]
[2017-12-12] MEDS: clonazePAM 0.5 MG TABLET PO SCH ×2 (12:51→19:18)
[2017-12-12 15:47] VITALS: BP 102/62
[2017-12-12] MEDS: MULTIVITAMIN with MINERAL TABLET. PO SCH (17:37)
[2017-12-12] MEDS: FENOFIBRATE NANOCRYSTALLIZED 48 MG TABLET PO SCH (19:17)
[2017-12-12] MEDS: INSULIN DETEMIR 300 UNITS/3 ML INSULN.PEN. SQ SCH (19:25)
--- NOTE | 2017-12-12 19:43 | PDOC ---
Exam Note: Marcelo Note: Please also refer to the separate dictated note~for this date of service dictated separately.~Patient seen individually. Discussed the patient with Nursing staff reviewed the chart.~Reviewed interim history and current functioning. Reviewed vital signs,~Labs/ Radiology~and current medications noted below. Continue current treatment with the changes noted in the dictated addendum note Assessment: Vital Signs: Vital Signs Date Time Temp Pulse Resp B/P (MAP) Pulse Ox O2 Delivery O2 Flow Rate FiO2 12/12/17 15:47 98.4 88 20 102/62 (75) 92 12/11/17 16:14 Room Air I&O Intake and Output 12/12/17 07:00 Intake Total 1840 ml Balance 1840 ml Intake Oral 1840 ml # Voids 2 Labs: Laboratory Tests Test 12/12/17 07:31 12/12/17 12:11 12/12/17 17:00 12/12/17 19:23 Glucose (Fingerstick) 318 mg/dL (70-99) H 216 mg/dL (70-99) H 172 mg/dL (70-99) H 159 mg/dL (70-99) H Current Medications: Meds: Current Medications Clonazepam (KlonoPIN) 0.5 mg BID@1200,2100 PO Last administered on 12/12/17at 19 :18; Start 12/08/17 at 22:00 Quetiapine Fumarate (SEROquel) 25 mg TID PO Last administered on 12/12/17at 14: 23; Start 12/08/17 at 22:00; Stop 12/12/17 at 18:40; Status DC Quetiapine Fumarate (SEROquel) 25 mg PRN Q2HR PRN PO ANXIETY / AGITATION; Start 12/08/17 at 21:45 Trazodone HCl (Desyrel) 50 mg TIDWMEALS PO Last administered on 12/12/17at 17:37 ; Start 12/09/17 at 08:00 Melatonin 6 mg PRN QHS PRN PO INSOMNIA Last administered on 12/09/17at 20:15; Start 12/08/17 at 21:45 Calcium Carbonate/ Glycine (Oscal) 1,000 mg DAILYWBKFT PO Last administered on 12/12/17at 08:30; Start 12/09/17 at 08:00 Vitamin D (Vitamin D3) 50,000 unit QMONTH PO ; Start 01/07/18 at 09:00 Docusate Sodium (Colace) 100 mg PRN BID PRN PO CONSTIPATION; Start 12/08/17 at 22:30 Hydrocortisone Acetate (Anucort-Hc) 25 mg PRN DAILY PRN RC burning or blood in BM; Start 12/08/17 at 22:30 Insulin Aspart (NovoLOG) 10 units DAILYWBKFT SQ Last administered on 12/12/17at 08:33; Start 12/09/17 at 08:00 Insulin Aspart (NovoLOG) 15 units DAILYWSUP SQ Last administered on 12/12/17at 17:38; Start 12/09/17 at 17:00 Insulin Aspart (NovoLOG) 25 units DAILYBFRLUN SQ Last administered on at 13:01; Start 12/09/17 at 11:30 Levothyroxine Sodium (Synthroid) 25 mcg DAILY06 PO Last administered on at 05:55; Start 12/09/17 at 06:00 Lisinopril (Prinivil) 10 mg DAILY PO Last administered on 12/12/17at 08:31; Start 12/09/17 at 09:00 Al Hydroxide/Mg Hydroxide (Mylanta Plus Xs) 15 ml PRN BFRMEALHC PRN PO DYSPEPSIA; Start 12/08/17 at 22:30 Magnesium Hydroxide (Milk Of Magnesia) 2,400 mg PRN QHS PRN PO CONSTIPATION; Start 12/08/17 at 22:30 Calamine/Phenol (Calmoseptine) 1 porsche PRN TID PRN TP SKIN PROTECTION; Start at 22:30 Multi-Ingredient Ointment (Analgesic [place]) 1 porsche PRN QID PRN TP MUSCLE PAIN; Start 12/08/17 at 22:30 Nystatin (Nystop) 1 porsche PRN TID PRN TP RASH; Start 12/08/17 at 22:30 Triamcinolone Acetonide (Aristocort) 1 porsche PRN TID PRN TP RASH; Start 12/08/17 at 22:30 Fenofibrate (Tricor) 48 mg QHS PO Last administered on 12/12/17at 19:17; Start 12/09/17 at 21:00 Insulin Glargine (Lantus) 45 units QHS SQ ; Start 12/09/17 at 21:00; Status Cancel Lactobacillus Rhamnosus (Culturelle) 1 cap BID PO Last administered on 19:18; Start 12/09/17 at 09:00 Multivitamins/ Calcium (Thera-M Plus) 1 tab DAILYWSUP PO Last administered on at 17:37; Start 12/09/17 at 17:00 Pantoprazole Sodium (Protonix) 40 mg DAILYAC PO Last administered on 12/12/17at 08:31; Start 12/09/17 at 07:30 Non-Formulary Medication 90 mg TIDWMEALS PO ; Start 12/09/17 at 08:00; Stop at 08:00; Status DC Insulin Detemir (Levemir) 45 units QHS SQ Last administered on 12/12/17at 19:25 ; Start 12/09/17 at 21:00 Olanzapine (ZyPREXA ZYDIS) 2.5 mg PRN Q2HR PRN PO PSYCHOSIS; Start 12/08/17 at 23:30 Cephalexin HCl (Keflex) 500 mg BID PO Last administered on 12/12/17 19:18; Start 12/09/17 at 09:00 Fluvoxamine Maleate (Luvox) 25 mg DAILY PO Last administered on 12/12/17at 08:30 ; Start 12/10/17 at 09:00; Stop 12/12/17 at 18:40; Status DC Fluvoxamine Maleate (Luvox) 50 mg DAILY PO ; Start 12/13/17 at 09:00; Stop at 09:00; Status DC Fluvoxamine Maleate (Luvox) 75 mg DAILY PO ; Start 12/16/17 at 09:01; Stop at 09:01; Status DC Quetiapine Fumarate (SEROquel) 37.5 mg TID PO Last administered on 12/12/17at 19 :18; Start 12/12/17 at 21:00 Active Scripts Active Reported Triamcinolone Acetonide 15 Gm Cream..g. 1 Porsche TP PRN TID PRN Nystop (Nystatin) 60 Gm Powder 1 Porsche TP PRN TID PRN Novolog Flexpen (Insulin Aspart) 100 Unit/1 Ml Insuln.pen 25 Unit SQ DAILYBFRLUN Novolog Flexpen (Insulin Aspart) 100 Unit/1 Ml Insuln.pen 15 Unit SQ DAILYWSUP Novolog Flexpen (Insulin Aspart) 100 Unit/1 Ml Insuln.pen 10 Unit SQ DAILYWBKFT [IBgard pepermint oil] 90mg Cap 90 Mg PO TIDWMEALS Omeprazole 20 Mg Capsule.dr 20 Mg PO DAILY06 Seroquel (Quetiapine Fumarate) 25 Mg Tablet 25 Mg PO PRN Q2HR PRN Quetiapine Fumarate 25 Mg Tablet 25 Mg PO TID Trazodone Hcl 50 Mg Tablet 50 Mg PO TIDWMEALS Clonazepam 0.5 Mg Tablet 0.5 Mg PO BID@1200,2100 Calmoseptine Ointment (Menthol/Zinc Oxide) 71 Gm Oint...g. 1 Porsche TP PRN PRN Anusol-Hc (Hydrocortisone Acetate) 25 Mg Supp.rect 25 Mg RC PRN DAILY PRN Probiotic (Lactobacillus Acidophilus) 1 Each Capsule 1 Cap PO BID Lantus (Insulin Glargine,Hum.rec.anlog) 100 Unit/1 Ml Vial 45 Units SQ QHS Analgesic [place] (Methyl Salicylate/Menthol) 29 Gm Oint...g. 1 Porsche TP PRN QID PRN Mag-Al Plus Xs Suspension (Mag Hydrox/Al Hydrox/Simeth) 30 Ml Oral.susp 15 Ml PO PRN BFRMEALHC PRN Levothyroxine Sodium 25 Mcg Tablet 25 Mcg PO DAILY06 Melatonin 5 Mg Tablet 5 Mg PO PRN QHS PRN Colace (Docusate Sodium) 100 Mg Capsule 100 Mg PO PRN BID PRN Hold for Loose stools Milk Of Magnesia (Magnesium Hydroxide) 400 Mg/5 Ml Oral.susp 2,400 Mg PO PRN QHS PRN Vitamin D3 (Cholecalciferol (Vitamin D3)) 50,000 Unit Capsule 50,000 Unit PO QMONTH Administer on the of every Month Zestril (Lisinopril) 10 Mg Tablet 10 Mg PO DAILY Hold for SBP less than 100. After a held dose, reassess in 2 hours. If SBP is above threshold admminister dose as ordered. If SBP is below threshold, contact provider for additional instructions Oyster Shell Calcium (Calcium Carbonate) 500 Mg Tablet 1,000 Mg PO DAILY Multivitamins (Multivitamin) 1 Each Tablet 1 Tab PO DAILYWSUP Fenofibrate 54 Mg Tablet 54 Mg PO QHS I have reviewed the current psychotropics carefully including drug interactions. Risk benefit ratio favors no change other than as noted in my dictated progress note. Diagnosis: Problems: (1) Anxiety (2) Dementia (3) Dementia (4) Impulse control disorder (5) Obsessive compulsive disorder (6) Medical clearance for psychiatric admission (7) Mood disorder (8) IMPULSE DISORDER, UNSPECIFIED (9) Impulse control disorder (10) Intellectual disability IDA LAINEZ MD Dec 12, 2017 19:43
--- NOTE | 2017-12-13 03:30 | PN ---
DATE: 12/11/2017 This is a late entry of 12/11/2017, covers elements not covered in my initial note of 12/11/2017. SUBJECTIVE: I met with the patient in the evening of 12/11/2017. The patient remains extremely intrusive, disruptive, repetitive, obsessive. As I met with her several times the evening of 12/11/2017, she would come back once again with the same question of wanting to be discharged on . She is totally engulfed with this, unable to move her thought processes any place else. At other times, she seems calmer, which in itself is an improvement. REVIEW OF SYSTEMS: Ambulation impaired with walker. No CV, , pulmonary, eye system symptoms on review. She snorts her nostrils in a typical fashion for her. MENTAL STATUS EXAM: Oriented to herself and situation. Speech coherent, rapid, repetitive, abstraction fair, computation impaired, language function intact, attention span short. Mood and affect remains labile. IMPRESSION: Obsessive-compulsive disorder; bipolar 1 disorder, mixed with psychotic features; anxiety disorder, unspecified; borderline intellectual functioning. Rest unchanged. PLAN: Increase Luvox to 75 mg p.o. at bedtime after she has been on the 50 mg for 3 days. Continue rest unchanged including scheduled trazodone, Seroquel and the Klonopin. MAN Stuart LAINEZ MD DR: YO/bakari JOB#: [id number] / [id number]
[2017-12-13] MEDS: LEVOTHYROXINE 25 MCG TABLET. PO SCH (05:29)
[2017-12-13 05:31] VITALS: BP 111/61
[2017-12-13] MEDS: PANTOPRAZOLE 40 MG TABLET. PO SCH (07:52)
[2017-12-13] MEDS: CALCIUM CARBONATE 500 MG TABLET PO SCH (07:52)
[2017-12-13] MEDS: QUEtiapine 25 MG TABLET. PO SCH ×3 (07:53→20:30)
[2017-12-13] MEDS: traZODone 50 MG TABLET. PO SCH ×3 (07:53→17:01)
[2017-12-13] MEDS: LISINOPRIL 10 MG TABLET PO SCH (07:53)
[2017-12-13] MEDS: CEPHALEXIN 250 MG CAPSULE PO SCH ×2 (07:54→20:30)
[2017-12-13] MEDS: LACTOBACILLUS RHAMNOSUS GG 1 CAPSULE. PO SCH ×2 (07:54→20:30)
[2017-12-13] MEDS: INSULIN ASPART 300 UNITS/3 ML INSULN.PEN SQ SCH ×3 (07:55→17:02)
[2017-12-13] MEDS: clonazePAM 0.5 MG TABLET PO SCH ×2 (11:57→20:31)
[2017-12-13 15:36] VITALS: BP 111/57
[2017-12-13] MEDS: MULTIVITAMIN with MINERAL TABLET. PO SCH (17:01)
--- NOTE | 2017-12-13 19:59 | PDOC ---
Exam Note: Marcelo Note: Please also refer to the separate dictated note~for this date of service dictated separately.~Patient seen individually. Discussed the patient with Nursing staff reviewed the chart.~Reviewed interim history and current functioning. Reviewed vital signs,~Labs/ Radiology~and current medications noted below. Continue current treatment with the changes noted in the dictated addendum note Assessment: Vital Signs: Vital Signs Date Time Temp Pulse Resp B/P (MAP) Pulse Ox O2 Delivery O2 Flow Rate FiO2 12/13/17 15:36 98.2 84 20 111/57 (75) 93 Room Air I&O Intake and Output 12/13/17 07:00 Intake Total 840 ml Balance 840 ml Intake Oral 840 ml # Bowel Movements 1 Labs: Laboratory Tests Test 12/13/17 07:10 12/13/17 11:42 12/13/17 16:26 12/13/17 19:09 Glucose (Fingerstick) 162 mg/dL (70-99) H 339 mg/dL (70-99) H 207 mg/dL (70-99) H 159 mg/dL (70-99) H Current Medications: Meds: Current Medications Clonazepam (KlonoPIN) 0.5 mg BID@1200,2100 PO Last administered on 12/13/17at 11: 57; Start 12/08/17 at 22:00 Quetiapine Fumarate (SEROquel) 25 mg TID PO Last administered on 12/12/17at 14: 23; Start 12/08/17 at 22:00; Stop 12/12/17 at 18:40; Status DC Quetiapine Fumarate (SEROquel) 25 mg PRN Q2HR PRN PO ANXIETY / AGITATION; Start 12/08/17 at 21:45 Trazodone HCl (Desyrel) 50 mg TIDWMEALS PO Last administered on 12/13/17at 17:01 ; Start 12/09/17 at 08:00 Melatonin 6 mg PRN QHS PRN PO INSOMNIA Last administered on 12/09/17at 20:15; Start 12/08/17 at 21:45 Calcium Carbonate/ Glycine (Oscal) 1,000 mg DAILYWBKFT PO Last administered on 12/13/17at 07:52; Start 12/09/17 at 08:00 Vitamin D (Vitamin D3) 50,000 unit QMONTH PO ; Start 01/07/18 at 09:00 Docusate Sodium (Colace) 100 mg PRN BID PRN PO CONSTIPATION; Start 12/08/17 at 22:30 Hydrocortisone Acetate (Anucort-Hc) 25 mg PRN DAILY PRN RC burning or blood in BM; Start 12/08/17 at 22:30 Insulin Aspart (NovoLOG) 10 units DAILYWBKFT SQ Last administered on 12/13/17at 07:55; Start 12/09/17 at 08:00 Insulin Aspart (NovoLOG) 15 units DAILYWSUP SQ Last administered on 12/13/17at 17 :02; Start 12/09/17 at 17:00 Insulin Aspart (NovoLOG) 25 units DAILYBFRLUN SQ Last administered on 12/13/17at 11:58; Start 12/09/17 at 11:30 Levothyroxine Sodium (Synthroid) 25 mcg DAILY06 PO Last administered on at 05:29; Start 12/09/17 at 06:00 Lisinopril (Prinivil) 10 mg DAILY PO Last administered on 12/13/17at 07:53; Start 12/09/17 at 09:00 Al Hydroxide/Mg Hydroxide (Mylanta Plus Xs) 15 ml PRN BFRMEALHC PRN PO DYSPEPSIA; Start 12/08/17 at 22:30 Magnesium Hydroxide (Milk Of Magnesia) 2,400 mg PRN QHS PRN PO CONSTIPATION; Start 12/08/17 at 22:30 Calamine/Phenol (Calmoseptine) 1 porsche PRN TID PRN TP SKIN PROTECTION; Start at 22:30 Multi-Ingredient Ointment (Analgesic [place]) 1 porsche PRN QID PRN TP MUSCLE PAIN; Start 12/08/17 at 22:30 Nystatin (Nystop) 1 porsche PRN TID PRN TP RASH; Start 12/08/17 at 22:30 Triamcinolone Acetonide (Aristocort) 1 porsche PRN TID PRN TP RASH; Start 12/08/17 at 22:30 Fenofibrate (Tricor) 48 mg QHS PO Last administered on 12/12/17at 19:17; Start 12/09/17 at 21:00 Insulin Glargine (Lantus) 45 units QHS SQ ; Start 12/09/17 at 21:00; Status Cancel Lactobacillus Rhamnosus (Culturelle) 1 cap BID PO Last administered on at 07:54; Start 12/09/17 at 09:00 Multivitamins/ Calcium (Thera-M Plus) 1 tab DAILYWSUP PO Last administered on at 17:01; Start 12/09/17 at 17:00 Pantoprazole Sodium (Protonix) 40 mg DAILYAC PO Last administered on 12/13/17at 07:52; Start 12/09/17 at 07:30 Non-Formulary Medication 90 mg TIDWMEALS PO ; Start 12/09/17 at 08:00; Stop at 08:00; Status DC Insulin Detemir (Levemir) 45 units QHS SQ Last administered on 12/12/17at 19:25 ; Start 12/09/17 at 21:00 Olanzapine (ZyPREXA ZYDIS) 2.5 mg PRN Q2HR PRN PO PSYCHOSIS; Start 12/08/17 at 23:30 Cephalexin HCl (Keflex) 500 mg BID PO Last administered on 12/13/17at 07:54; Start 12/09/17 at 09:00 Fluvoxamine Maleate (Luvox) 25 mg DAILY PO Last administered on 12/12/17at 08:30 ; Start 12/10/17 at 09:00; Stop 12/12/17 at 18:40; Status DC Fluvoxamine Maleate (Luvox) 50 mg DAILY PO ; Start 12/13/17 at 09:00; Stop at 09:00; Status DC Fluvoxamine Maleate (Luvox) 75 mg DAILY PO ; Start 12/16/17 at 09:01; Stop at 09:01; Status DC Quetiapine Fumarate (SEROquel) 37.5 mg TID PO Last administered on 12/13/17at 14: 21; Start 12/12/17 at 21:00 Fenofibrate (Tricor) 48 mg STK-MED ONCE PO ; Start 12/09/17 at 09:00; Stop at 09:02; Status DC Multivitamins/ Calcium (Thera-M Plus) 1 tab STK-MED ONCE .ROUTE ; Start at 09:00; Stop 12/13/17 at 09:02; Status DC Fenofibrate (Tricor) 48 mg STK-MED ONCE PO ; Start 12/10/17 at 09:00; Stop at 09:03; Status DC Multivitamins/ Calcium (Thera-M Plus) 1 tab STK-MED ONCE .ROUTE ; Start at 09:00; Stop 12/13/17 at 09:03; Status DC Fenofibrate (Tricor) 48 mg STK-MED ONCE PO ; Start 12/11/17 at 09:00; Stop at 09:03; Status DC Multivitamins/ Calcium (Thera-M Plus) 1 tab STK-MED ONCE .ROUTE ; Start at 09:00; Stop 12/13/17 at 09:03; Status DC Fenofibrate (Tricor) 48 mg STK-MED ONCE PO ; Start 12/12/17 at 09:00; Stop at 09:04; Status DC Multivitamins/ Calcium (Thera-M Plus) 1 tab STK-MED ONCE .ROUTE ; Start at 09:00; Stop 12/13/17 at 09:04; Status DC Fluvoxamine Maleate (Luvox) 50 mg QHS PO ; Start 12/13/17 at 21:00; Stop 12/15/17 at 21:01 Fluvoxamine Maleate (Luvox) 75 mg QHS PO ; Start 12/16/17 at 21:00 Active Scripts Active Reported Triamcinolone Acetonide 15 Gm Cream..g. 1 Porsche TP PRN TID PRN Nystop (Nystatin) 60 Gm Powder 1 Porsche TP PRN TID PRN Novolog Flexpen (Insulin Aspart) 100 Unit/1 Ml Insuln.pen 25 Unit SQ DAILYBFRLUN Novolog Flexpen (Insulin Aspart) 100 Unit/1 Ml Insuln.pen 15 Unit SQ DAILYWSUP Novolog Flexpen (Insulin Aspart) 100 Unit/1 Ml Insuln.pen 10 Unit SQ DAILYWBKFT [IBgard pepermint oil] 90mg Cap 90 Mg PO TIDWMEALS Omeprazole 20 Mg Capsule.dr 20 Mg PO DAILY06 Seroquel (Quetiapine Fumarate) 25 Mg Tablet 25 Mg PO PRN Q2HR PRN Quetiapine Fumarate 25 Mg Tablet 25 Mg PO TID Trazodone Hcl 50 Mg Tablet 50 Mg PO TIDWMEALS Clonazepam 0.5 Mg Tablet 0.5 Mg PO BID@1200,2100 Calmoseptine Ointment (Menthol/Zinc Oxide) 71 Gm Oint...g. 1 Porsche TP PRN PRN Anusol-Hc (Hydrocortisone Acetate) 25 Mg Supp.rect 25 Mg RC PRN DAILY PRN Probiotic (Lactobacillus Acidophilus) 1 Each Capsule 1 Cap PO BID Lantus (Insulin Glargine,Hum.rec.anlog) 100 Unit/1 Ml Vial 45 Units SQ QHS Analgesic [place] (Methyl Salicylate/Menthol) 29 Gm Oint...g. 1 Porsche TP PRN QID PRN Mag-Al Plus Xs Suspension (Mag Hydrox/Al Hydrox/Simeth) 30 Ml Oral.susp 15 Ml PO PRN BFRMEALHC PRN Levothyroxine Sodium 25 Mcg Tablet 25 Mcg PO DAILY06 Melatonin 5 Mg Tablet 5 Mg PO PRN QHS PRN Colace (Docusate Sodium) 100 Mg Capsule 100 Mg PO PRN BID PRN Hold for Loose stools Milk Of Magnesia (Magnesium Hydroxide) 400 Mg/5 Ml Oral.susp 2,400 Mg PO PRN QHS PRN Vitamin D3 (Cholecalciferol (Vitamin D3)) 50,000 Unit Capsule 50,000 Unit PO QMONTH Administer on the 15th of every Month Zestril (Lisinopril) 10 Mg Tablet 10 Mg PO DAILY Hold for SBP less than 100. After a held dose, reassess in 2 hours. If SBP is above threshold admminister dose as ordered. If SBP is below threshold, contact provider for additional instructions Oyster Shell Calcium (Calcium Carbonate) 500 Mg Tablet 1,000 Mg PO DAILY Multivitamins (Multivitamin) 1 Each Tablet 1 Tab PO DAILYWSUP Fenofibrate 54 Mg Tablet 54 Mg PO QHS I have reviewed the current psychotropics carefully including drug interactions. Risk benefit ratio favors no change other than as noted in my dictated progress note. Diagnosis: Problems: (1) Anxiety (2) Dementia (3) Dementia (4) Impulse control disorder (5) Obsessive compulsive disorder (6) Medical clearance for psychiatric admission (7) Mood disorder (8) IMPULSE DISORDER, UNSPECIFIED (9) Impulse control disorder (10) Intellectual disability IDA LAINEZ MD Dec 13, 2017 19:59
[2017-12-13] MEDS: FENOFIBRATE NANOCRYSTALLIZED 48 MG TABLET PO SCH (20:32)
[2017-12-13] MEDS: INSULIN DETEMIR 300 UNITS/3 ML INSULN.PEN. SQ SCH (20:33)
[2017-12-14] MEDS: LEVOTHYROXINE 25 MCG TABLET. PO SCH (06:04)
[2017-12-14 06:41] VITALS: BP 119/58
[2017-12-14] MEDS: NYSTATIN TOPICAL POWDER 15GM BOTTLE. TP SCH ×2 (09:00→20:15)
[2017-12-14] MEDS: traZODone 50 MG TABLET. PO SCH ×3 (09:16→18:18)
[2017-12-14] MEDS: CALCIUM CARBONATE 500 MG TABLET PO SCH (09:17)
[2017-12-14] MEDS: QUEtiapine 25 MG TABLET. PO SCH ×3 (09:17→20:12)
[2017-12-14] MEDS: LISINOPRIL 10 MG TABLET PO SCH (09:17)
[2017-12-14] MEDS: INSULIN ASPART 300 UNITS/3 ML INSULN.PEN SQ SCH ×3 (09:18→18:19)
[2017-12-14] MEDS: LACTOBACILLUS RHAMNOSUS GG 1 CAPSULE. PO SCH ×2 (09:18→20:12)
[2017-12-14] MEDS: PANTOPRAZOLE 40 MG TABLET. PO SCH (09:18)
[2017-12-14] MEDS: CEPHALEXIN 250 MG CAPSULE PO SCH ×2 (09:18→20:10)
[2017-12-14] MEDS: clonazePAM 0.5 MG TABLET PO SCH ×2 (13:57→20:13)
[2017-12-14 16:02] VITALS: BP 119/80
[2017-12-14] MEDS: MULTIVITAMIN with MINERAL TABLET. PO SCH (18:18)
[2017-12-14] MEDS: FENOFIBRATE NANOCRYSTALLIZED 48 MG TABLET PO SCH (20:13)
[2017-12-14] MEDS: INSULIN DETEMIR 300 UNITS/3 ML INSULN.PEN. SQ SCH (20:14)
--- NOTE | 2017-12-14 20:39 | PN ---
DATE: 12/12/2017 This is a late entry for date of service 12/12/2017 and covers elements not covered in my initial note of 12/12/2017. I with the patient the evening of 12/12/2017. The patient has been quite obsessive, anxious, repetitive, constantly at the nursing station, wanting to know when she would be discharged. This is all she would talk to me about as I met with her several times the evening of 12/12/2017 that she would keep coming back with the same questions. Attempted to address the reasons for admission, treatment goals with little avail. Nursing staff have informed me that the patient's brother, Cristhian felt she did worse on Luvox and wants it discontinued and we will go ahead and stop it and then discuss with the family at treatment team meeting on 12/13/2017 about further options. REVIEW OF SYSTEMS: Ambulation impaired with walker. No CV, , pulmonary, eye system symptoms on review. She has typical nose movements. MENTAL STATUS EXAM: Oriented to herself and situation. Speech is coherent, rapid. Abstraction fair, computation impaired, language function intact, quite obsessive, repetitive. No suicidal or homicidal ideation. Does have UTI. IMPRESSION: Bipolar 1 disorder, mixed, OCD, borderline intellectual functioning. Rest unchanged. PLAN: Stop the Luvox. Increase Seroquel from 25 mg 3 times a day to 37.5 mg 3 times a day. Maintain Klonopin and the rest of the psychotropics including scheduled trazodone 50 mg t.i.d. IDA LAINEZ MD DR: YO/bakari JOB#: [id number] / [id number]
--- NOTE | 2017-12-14 22:18 | PDOC ---
Exam Note: Marcelo Note: Please also refer to the separate dictated note~for this date of service dictated separately.~Patient seen individually. Discussed the patient with Nursing staff reviewed the chart.~Reviewed interim history and current functioning. Reviewed vital signs,~Labs/ Radiology~and current medications noted below. Continue current treatment with the changes noted in the dictated addendum note Assessment: Vital Signs: Vital Signs Date Time Temp Pulse Resp B/P (MAP) Pulse Ox O2 Delivery O2 Flow Rate FiO2 12/14/17 16:02 98.1 84 18 119/80 (93) Room Air 93.0 12/14/17 06:41 91 I&O Intake and Output 12/14/17 07:00 Intake Total 840 ml Balance 840 ml Intake Oral 840 ml Labs: Laboratory Tests Test 12/14/17 07:03 12/14/17 11:30 12/14/17 16:35 12/14/17 18:57 Glucose (Fingerstick) 170 mg/dL (70-99) H 186 mg/dL (70-99) H 263 mg/dL (70-99) H 362 mg/dL (70-99) H Current Medications: Meds: Current Medications Clonazepam (KlonoPIN) 0.5 mg BID@1200,2100 PO Last administered on 12/14/17 20: 13; Start 12/08/17 at 22:00 Quetiapine Fumarate (SEROquel) 25 mg TID PO Last administered on 12/12/17at 14: 23; Start 12/08/17 at 22:00; Stop 12/12/17 at 18:40; Status DC Quetiapine Fumarate (SEROquel) 25 mg PRN Q2HR PRN PO ANXIETY / AGITATION; Start 12/08/17 at 21:45 Trazodone HCl (Desyrel) 50 mg TIDWMEALS PO Last administered on 12/14/17at 18:18 ; Start 12/09/17 at 08:00 Melatonin 6 mg PRN QHS PRN PO INSOMNIA Last administered on 12/09/17at 20:15; Start 12/08/17 at 21:45 Calcium Carbonate/ Glycine (Oscal) 1,000 mg DAILYWBKFT PO Last administered on 12/14/17at 09:17; Start 12/09/17 at 08:00 Vitamin D (Vitamin D3) 50,000 unit QMONTH PO ; Start 01/07/18 at 09:00 Docusate Sodium (Colace) 100 mg PRN BID PRN PO CONSTIPATION; Start 12/08/17 at 22:30 Hydrocortisone Acetate (Anucort-Hc) 25 mg PRN DAILY PRN RC burning or blood in BM; Start 12/08/17 at 22:30 Insulin Aspart (NovoLOG) 10 units DAILYWBKFT SQ Last administered on 12/14/17at 09:18; Start 12/09/17 at 08:00 Insulin Aspart (NovoLOG) 15 units DAILYWSUP SQ Last administered on 12/14/17at 18 :19; Start 12/09/17 at 17:00 Insulin Aspart (NovoLOG) 25 units DAILYBFRLUN SQ Last administered on 12/14/17at 13:59; Start 12/09/17 at 11:30 Levothyroxine Sodium (Synthroid) 25 mcg DAILY06 PO Last administered on at 06:04; Start 12/09/17 at 06:00 Lisinopril (Prinivil) 10 mg DAILY PO Last administered on 12/14/17at 09:17; Start 12/09/17 at 09:00 Al Hydroxide/Mg Hydroxide (Mylanta Plus Xs) 15 ml PRN BFRMEALHC PRN PO DYSPEPSIA; Start 12/08/17 at 22:30 Magnesium Hydroxide (Milk Of Magnesia) 2,400 mg PRN QHS PRN PO CONSTIPATION; Start 12/08/17 at 22:30 Calamine/Phenol (Calmoseptine) 1 porsche PRN TID PRN TP SKIN PROTECTION; Start at 22:30 Multi-Ingredient Ointment (Analgesic [place]) 1 porsche PRN QID PRN TP MUSCLE PAIN; Start 12/08/17 at 22:30 Nystatin (Nystop) 1 porsche PRN TID PRN TP RASH; Start 12/08/17 at 22:30 Triamcinolone Acetonide (Aristocort) 1 porsche PRN TID PRN TP RASH; Start 12/08/17 at 22:30 Fenofibrate (Tricor) 48 mg QHS PO Last administered on 12/14/17at 20:13; Start at 21:00 Insulin Glargine (Lantus) 45 units QHS SQ ; Start 12/09/17 at 21:00; Status Cancel Lactobacillus Rhamnosus (Culturelle) 1 cap BID PO Last administered on 20:12; Start 12/09/17 at 09:00 Multivitamins/ Calcium (Thera-M Plus) 1 tab DAILYWSUP PO Last administered on 18:18; Start 12/09/17 at 17:00 Pantoprazole Sodium (Protonix) 40 mg DAILYAC PO Last administered on 12/14/17at 09:18; Start 12/09/17 at 07:30 Non-Formulary Medication 90 mg TIDWMEALS PO ; Start 12/09/17 at 08:00; Stop at 08:00; Status DC Insulin Detemir (Levemir) 45 units QHS SQ Last administered on 12/14/17at 20:14; Start 12/09/17 at 21:00 Olanzapine (ZyPREXA ZYDIS) 2.5 mg PRN Q2HR PRN PO PSYCHOSIS; Start 12/08/17 at 23:30 Cephalexin HCl (Keflex) 500 mg BID PO Last administered on 12/14/17at 20:10; Start 12/09/17 at 09:00 Fluvoxamine Maleate (Luvox) 25 mg DAILY PO Last administered on 12/12/17at 08:30 ; Start 12/10/17 at 09:00; Stop 12/12/17 at 18:40; Status DC Fluvoxamine Maleate (Luvox) 50 mg DAILY PO ; Start 12/13/17 at 09:00; Stop at 09:00; Status DC Fluvoxamine Maleate (Luvox) 75 mg DAILY PO ; Start 12/16/17 at 09:01; Stop at 09:01; Status DC Quetiapine Fumarate (SEROquel) 37.5 mg TID PO Last administered on 12/14/17at 20: 12; Start 12/12/17 at 21:00 Fenofibrate (Tricor) 48 mg STK-MED ONCE PO ; Start 12/09/17 at 09:00; Stop at 09:02; Status DC Multivitamins/ Calcium (Thera-M Plus) 1 tab STK-MED ONCE .ROUTE ; Start at 09:00; Stop 12/13/17 at 09:02; Status DC Fenofibrate (Tricor) 48 mg STK-MED ONCE PO ; Start 12/10/17 at 09:00; Stop at 09:03; Status DC Multivitamins/ Calcium (Thera-M Plus) 1 tab STK-MED ONCE .ROUTE ; Start at 09:00; Stop 12/13/17 at 09:03; Status DC Fenofibrate (Tricor) 48 mg STK-MED ONCE PO ; Start 12/11/17 at 09:00; Stop at 09:03; Status DC Multivitamins/ Calcium (Thera-M Plus) 1 tab STK-MED ONCE .ROUTE ; Start at 09:00; Stop 12/13/17 at 09:03; Status DC Fenofibrate (Tricor) 48 mg STK-MED ONCE PO ; Start 12/12/17 at 09:00; Stop at 09:04; Status DC Multivitamins/ Calcium (Thera-M Plus) 1 tab STK-MED ONCE .ROUTE ; Start at 09:00; Stop 12/13/17 at 09:04; Status DC Fluvoxamine Maleate (Luvox) 50 mg QHS PO Last administered on 12/14/17at 20:10; Start 12/13/17 at 21:00; Stop 12/15/17 at 21:01 Fluvoxamine Maleate (Luvox) 75 mg QHS PO ; Start 12/16/17 at 21:00 Nystatin (Nystop) 1 porsche BID TP Last administered on 12/14/17at 20:15; Start at 09:00 Active Scripts Active Reported Triamcinolone Acetonide 15 Gm Cream..g. 1 Porsche TP PRN TID PRN Nystop (Nystatin) 60 Gm Powder 1 Porsche TP PRN TID PRN Novolog Flexpen (Insulin Aspart) 100 Unit/1 Ml Insuln.pen 25 Unit SQ DAILYBFRLUN Novolog Flexpen (Insulin Aspart) 100 Unit/1 Ml Insuln.pen 15 Unit SQ DAILYWSUP Novolog Flexpen (Insulin Aspart) 100 Unit/1 Ml Insuln.pen 10 Unit SQ DAILYWBKFT [IBgard pepermint oil] 90mg Cap 90 Mg PO TIDWMEALS Omeprazole 20 Mg Capsule.dr 20 Mg PO DAILY06 Seroquel (Quetiapine Fumarate) 25 Mg Tablet 25 Mg PO PRN Q2HR PRN Quetiapine Fumarate 25 Mg Tablet 25 Mg PO TID Trazodone Hcl 50 Mg Tablet 50 Mg PO TIDWMEALS Clonazepam 0.5 Mg Tablet 0.5 Mg PO BID@1200,2100 Calmoseptine Ointment (Menthol/Zinc Oxide) 71 Gm Oint...g. 1 Porsche TP PRN PRN Anusol-Hc (Hydrocortisone Acetate) 25 Mg Supp.rect 25 Mg RC PRN DAILY PRN Probiotic (Lactobacillus Acidophilus) 1 Each Capsule 1 Cap PO BID Lantus (Insulin Glargine,Hum.rec.anlog) 100 Unit/1 Ml Vial 45 Units SQ QHS Analgesic [place] (Methyl Salicylate/Menthol) 29 Gm Oint...g. 1 Porsche TP PRN QID PRN Mag-Al Plus Xs Suspension (Mag Hydrox/Al Hydrox/Simeth) 30 Ml Oral.susp 15 Ml PO PRN BFRMEALHC PRN Levothyroxine Sodium 25 Mcg Tablet 25 Mcg PO DAILY06 Melatonin 5 Mg Tablet 5 Mg PO PRN QHS PRN Colace (Docusate Sodium) 100 Mg Capsule 100 Mg PO PRN BID PRN Hold for Loose stools Milk Of Magnesia (Magnesium Hydroxide) 400 Mg/5 Ml Oral.susp 2,400 Mg PO PRN QHS PRN Vitamin D3 (Cholecalciferol (Vitamin D3)) 50,000 Unit Capsule 50,000 Unit PO QMONTH Administer on the of every Month Zestril (Lisinopril) 10 Mg Tablet 10 Mg PO DAILY Hold for SBP less than 100. After a held dose, reassess in 2 hours. If SBP is above threshold admminister dose as ordered. If SBP is below threshold, contact provider for additional instructions Oyster Shell Calcium (Calcium Carbonate) 500 Mg Tablet 1,000 Mg PO DAILY Multivitamins (Multivitamin) 1 Each Tablet 1 Tab PO DAILYWSUP Fenofibrate 54 Mg Tablet 54 Mg PO QHS I have reviewed the current psychotropics carefully including drug interactions. Risk benefit ratio favors no change other than as noted in my dictated progress note. Diagnosis: Problems: (1) DMII (diabetes mellitus, type 2) (2) Anxiety (3) Dementia (4) Dementia (5) Impulse control disorder (6) Obsessive compulsive disorder (7) Medical clearance for psychiatric admission (8) Mood disorder (9) IMPULSE DISORDER, UNSPECIFIED (10) Impulse control disorder (11) Intellectual disability IDA LAINEZ MD Dec 14, 2017 22:18
--- NOTE | 2017-12-15 00:03 | PN ---
DATE: 12/13/2017 PSYCHIATRIC PROGRESS NOTE This late entry date of service e03 covers elements not covered in my initial note 12/13/2017. SUBJECTIVE: Met with the patient at length and repeatedly evening of 12/13/2017, staffed at a treatment team meeting with the entire team morning of 12/13/2017 and the patient's sister, Ricky and [id number], Nga, attended the conference together with Cristhian, her brother, who was in the background. Reviewed her history at length and current treatment options. The patient had her Luvox discontinued at the long term. She was then responding adequately to this, but symptoms have only worsened since then. She is extremely obsessive, repetitive, slept 6 hours. REVIEW OF SYSTEMS: No CV, , pulmonary, eye system symptoms on review. MENTAL STATUS EXAM: Oriented to herself, situation. Speech is coherent, repetitive. Abstraction is fair. She followed me around the unit, met with her many times on rounds. No active suicidal or homicidal ideation. She is obsessive about discharge plans and we discussed goals that she needs to reach for discharge. LABORATORY DATA: Reviewed. IMPRESSION: Bipolar 1 disorder, mixed obsessive compulsive disorder. PLAN: Continue psychotropics. Cristhian indicated and family indicated they had not requested the Luvox be discontinued. I do feel she would benefit consequent to her marked OCD. We will restart, gradually increase to 75 mg a day. Continue rest unchanged. MAN Stuart LAINEZ MD DR: YO/bakari JOB#: [id number] / [id number]
[2017-12-15] MEDS: LEVOTHYROXINE 25 MCG TABLET. PO SCH (06:24)
[2017-12-15 06:27] VITALS: BP 112/57
[2017-12-15 07:22] LABS: BASO # 0.1 x10^3/uL (0.0-0.2); BASO % 1 % (0-3); EOS # 0.4 x10^3/uL (0.0-0.7); EOS % 6 % (0-3); HEMATOCRIT 40.5 % (36.0-47.0); HEMOGLOBIN 13.9 g/dL (12.0-15.5); LYMPH # 2.4 x10^3/uL (1.0-4.8); LYMPH % 33 % (24-48); MEAN CORPUSCULAR HEMOGLOBIN 31 pg (25-35); MEAN CORPUSCULAR HGB CONC 34 g/dL (31-37); MEAN CORPUSCULAR VOLUME 90 fL (79-100); MONO # 0.4 x10^3/uL (0.0-1.1); MONO % 6 % (0-9); NEUT # 4.1 x10^3uL (1.8-7.7); NEUT % 55 % (31-73); PLATELET COUNT 123 x10^3/uL (140-400); RED BLOOD COUNT 4.48 x10^6/uL (3.50-5.40); RED CELL DISTRIBUTION WIDTH 14.3 % (11.5-14.5); WHITE BLOOD COUNT 7.5 x10^3/uL (4.0-11.0)
[2017-12-15 07:44] LABS: ALBUMIN 3.4 g/dL (3.4-5.0); ALBUMIN/GLOBULIN RATIO 0.9 (1.0-1.7); CREATININE 0.7 mg/dL (0.6-1.0); GFR 82.5; MAGNESIUM 1.8 mg/dL (1.8-2.4); POTASSIUM 3.9 mmol/L (3.5-5.1); TOTAL BILIRUBIN 0.6 mg/dL (0.2-1.0)
[2017-12-15] MEDS: QUEtiapine 25 MG TABLET. PO SCH ×3 (08:13→19:40)
[2017-12-15] MEDS: traZODone 50 MG TABLET. PO SCH ×3 (08:13→17:35)
[2017-12-15] MEDS: INSULIN ASPART 300 UNITS/3 ML INSULN.PEN SQ SCH ×3 (08:13→17:41)
[2017-12-15] MEDS: CALCIUM CARBONATE 500 MG TABLET PO SCH (08:13)
[2017-12-15] MEDS: CEPHALEXIN 250 MG CAPSULE PO SCH ×2 (08:14→19:41)
[2017-12-15] MEDS: LISINOPRIL 10 MG TABLET PO SCH (08:14)
[2017-12-15] MEDS: PANTOPRAZOLE 40 MG TABLET. PO SCH (08:14)
[2017-12-15] MEDS: LACTOBACILLUS RHAMNOSUS GG 1 CAPSULE. PO SCH ×2 (08:14→19:40)
[2017-12-15] MEDS: NYSTATIN TOPICAL POWDER 15GM BOTTLE. TP SCH ×2 (08:15→19:44)
[2017-12-15] MEDS: clonazePAM 0.5 MG TABLET PO SCH ×2 (12:21→19:40)
[2017-12-15 16:34] VITALS: BP 119/73
[2017-12-15] MEDS: MULTIVITAMIN with MINERAL TABLET. PO SCH (17:35)
[2017-12-15] MEDS: FENOFIBRATE NANOCRYSTALLIZED 48 MG TABLET PO SCH (19:41)
[2017-12-15] MEDS: INSULIN DETEMIR 300 UNITS/3 ML INSULN.PEN. SQ SCH (19:43)
--- NOTE | 2017-12-15 21:03 | PDOC ---
Exam Note: Marcelo Note: Please also refer to the separate dictated note~for this date of service dictated separately.~Patient seen individually. Discussed the patient with Nursing staff reviewed the chart.~Reviewed interim history and current functioning. Reviewed vital signs,~Labs/ Radiology~and current medications noted below. Continue current treatment with the changes noted in the dictated addendum note Assessment: Vital Signs: Vital Signs Date Time Temp Pulse Resp B/P (MAP) Pulse Ox O2 Delivery O2 Flow Rate FiO2 12/15/17 16:34 98.3 78 18 119/73 (88) 96 Room Air 12/14/17 16:02 93.0 I&O Intake and Output 12/15/17 07:00 Intake Total 720 ml Balance 720 ml Intake Oral 720 ml # Bowel Movements 2 Labs: Laboratory Tests Test 12/15/17 06:49 12/15/17 07:32 12/15/17 11:53 12/15/17 16:53 White Blood Count 7.5 x10^3/uL (4.0-11.0) Red Blood Count 4.48 x10^6/uL (3.50-5.40) Hemoglobin 13.9 g/dL (12.0-15.5) Hematocrit 40.5 % (36.0-47.0) Mean Corpuscular Volume 90 fL (79-100) Mean Corpuscular Hemoglobin 31 pg (25-35) Mean Corpuscular Hemoglobin Concent 34 g/dL (31-37) Red Cell Distribution Width 14.3 % (11.5-14.5) Platelet Count 123 x10^3/uL (140-400) L Neutrophils (%) (Auto) 55 % (31-73) Lymphocytes (%) (Auto) 33 % (24-48) Monocytes (%) (Auto) 6 % (0-9) Eosinophils (%) (Auto) 6 % (0-3) H Basophils (%) (Auto) 1 % (0-3) Neutrophils # (Auto) 4.1 x10^3uL (1.8-7.7) Lymphocytes # (Auto) 2.4 x10^3/uL (1.0-4.8) Monocytes # (Auto) 0.4 x10^3/uL (0.0-1.1) Eosinophils # (Auto) 0.4 x10^3/uL (0.0-0.7) Basophils # (Auto) 0.1 x10^3/uL (0.0-0.2) Sodium Level 137 mmol/L (136-145) Potassium Level 3.9 mmol/L (3.5-5.1) Chloride Level 101 mmol/L (98-107) Carbon Dioxide Level 28 mmol/L (21-32) Anion Gap 8 (6-14) Blood Urea Nitrogen 13 mg/dL (7-20) Creatinine 0.7 mg/dL (0.6-1.0) Estimated GFR (Cockcroft-Gault) 82.5 BUN/Creatinine Ratio 19 (6-20) Glucose Level 249 mg/dL (70-99) H Calcium Level 9.0 mg/dL (8.5-10.1) Magnesium Level 1.8 mg/dL (1.8-2.4) Total Bilirubin 0.6 mg/dL (0.2-1.0) Aspartate Amino Transferase (AST) 26 U/L (15-37) Alanine Aminotransferase (ALT) 40 U/L (14-59) Alkaline Phosphatase 90 U/L (46-116) Total Protein 7.0 g/dL (6.4-8.2) Albumin 3.4 g/dL (3.4-5.0) Albumin/Globulin Ratio 0.9 (1.0-1.7) L Glucose (Fingerstick) 253 mg/dL (70-99) H 286 mg/dL (70-99) H 248 mg/dL (70-99) H Test 12/15/17 19:12 Glucose (Fingerstick) 273 mg/dL (70-99) H Current Medications: Meds: Current Medications Clonazepam (KlonoPIN) 0.5 mg BID@1200,2100 PO Last administered on 12/15/17at 19: 40; Start 12/08/17 at 22:00 Quetiapine Fumarate (SEROquel) 25 mg TID PO Last administered on 12/12/17at 14: 23; Start 12/08/17 at 22:00; Stop 12/12/17 at 18:40; Status DC Quetiapine Fumarate (SEROquel) 25 mg PRN Q2HR PRN PO ANXIETY / AGITATION; Start 12/08/17 at 21:45 Trazodone HCl (Desyrel) 50 mg TIDWMEALS PO Last administered on 12/15/17 17:35 ; Start 12/09/17 at 08:00 Melatonin 6 mg PRN QHS PRN PO INSOMNIA Last administered on 12/09/17 20:15; Start 12/08/17 at 21:45 Calcium Carbonate/ Glycine (Oscal) 1,000 mg DAILYWBKFT PO Last administered on 12/15/17 08:13; Start 12/09/17 at 08:00 Vitamin D (Vitamin D3) 50,000 unit QMONTH PO ; Start 01/07/18 at 09:00 Docusate Sodium (Colace) 100 mg PRN BID PRN PO CONSTIPATION; Start 12/08/17 at 22:30 Hydrocortisone Acetate (Anucort-Hc) 25 mg PRN DAILY PRN RC burning or blood in BM; Start 12/08/17 at 22:30 Insulin Aspart (NovoLOG) 10 units DAILYWBKFT SQ Last administered on 12/15/17 08:13; Start 12/09/17 at 08:00 Insulin Aspart (NovoLOG) 15 units DAILYWSUP SQ Last administered on 12/15/17 17 :41; Start 12/09/17 at 17:00 Insulin Aspart (NovoLOG) 25 units DAILYBFRLUN SQ Last administered on 12/15/17 12:28; Start 12/09/17 at 11:30 Levothyroxine Sodium (Synthroid) 25 mcg DAILY06 PO Last administered on 06:24; Start 12/09/17 at 06:00 Lisinopril (Prinivil) 10 mg DAILY PO Last administered on 12/15/17 08:14; Start 12/09/17 at 09:00 Al Hydroxide/Mg Hydroxide (Mylanta Plus Xs) 15 ml PRN BFRMEALHC PRN PO DYSPEPSIA; Start 12/08/17 at 22:30 Magnesium Hydroxide (Milk Of Magnesia) 2,400 mg PRN QHS PRN PO CONSTIPATION; Start 12/08/17 at 22:30 Calamine/Phenol (Calmoseptine) 1 porsche PRN TID PRN TP SKIN PROTECTION; Start at 22:30 Multi-Ingredient Ointment (Analgesic [place]) 1 porsche PRN QID PRN TP MUSCLE PAIN; Start 12/08/17 at 22:30 Nystatin (Nystop) 1 porsche PRN TID PRN TP RASH; Start 12/08/17 at 22:30 Triamcinolone Acetonide (Aristocort) 1 porsche PRN TID PRN TP RASH; Start 12/08/17 at 22:30 Fenofibrate (Tricor) 48 mg QHS PO Last administered on 12/15/17 19:41; Start at 21:00 Insulin Glargine (Lantus) 45 units QHS SQ ; Start 12/09/17 at 21:00; Status Cancel Lactobacillus Rhamnosus (Culturelle) 1 cap BID PO Last administered on 19:40; Start 12/09/17 at 09:00 Multivitamins/ Calcium (Thera-M Plus) 1 tab DAILYWSUP PO Last administered on 17:35; Start 12/09/17 at 17:00 Pantoprazole Sodium (Protonix) 40 mg DAILYAC PO Last administered on 12/15/17 08:14; Start 12/09/17 at 07:30 Non-Formulary Medication 90 mg TIDWMEALS PO ; Start 12/09/17 at 08:00; Stop at 08:00; Status DC Insulin Detemir (Levemir) 45 units QHS SQ Last administered on 12/15/17at 19:43; Start 12/09/17 at 21:00 Olanzapine (ZyPREXA ZYDIS) 2.5 mg PRN Q2HR PRN PO PSYCHOSIS; Start 12/08/17 at 23:30 Cephalexin HCl (Keflex) 500 mg BID PO Last administered on 12/15/17 19:41; Start 12/09/17 at 09:00 Fluvoxamine Maleate (Luvox) 25 mg DAILY PO Last administered on 12/12/17at 08:30 ; Start 12/10/17 at 09:00; Stop 12/12/17 at 18:40; Status DC Fluvoxamine Maleate (Luvox) 50 mg DAILY PO ; Start 12/13/17 at 09:00; Stop at 09:00; Status DC Fluvoxamine Maleate (Luvox) 75 mg DAILY PO ; Start 12/16/17 at 09:01; Stop at 09:01; Status DC Quetiapine Fumarate (SEROquel) 37.5 mg TID PO Last administered on 12/15/17 19: 40; Start 12/12/17 at 21:00 Fenofibrate (Tricor) 48 mg STK-MED ONCE PO ; Start 12/09/17 at 09:00; Stop at 09:02; Status DC Multivitamins/ Calcium (Thera-M Plus) 1 tab STK-MED ONCE .ROUTE ; Start at 09:00; Stop 12/13/17 at 09:02; Status DC Fenofibrate (Tricor) 48 mg STK-MED ONCE PO ; Start 12/10/17 at 09:00; Stop at 09:03; Status DC Multivitamins/ Calcium (Thera-M Plus) 1 tab STK-MED ONCE .ROUTE ; Start at 09:00; Stop 12/13/17 at 09:03; Status DC Fenofibrate (Tricor) 48 mg STK-MED ONCE PO ; Start 12/11/17 at 09:00; Stop at 09:03; Status DC Multivitamins/ Calcium (Thera-M Plus) 1 tab STK-MED ONCE .ROUTE ; Start at 09:00; Stop 12/13/17 at 09:03; Status DC Fenofibrate (Tricor) 48 mg STK-MED ONCE PO ; Start 12/12/17 at 09:00; Stop at 09:04; Status DC Multivitamins/ Calcium (Thera-M Plus) 1 tab STK-MED ONCE .ROUTE ; Start at 09:00; Stop 12/13/17 at 09:04; Status DC Fluvoxamine Maleate (Luvox) 50 mg QHS PO Last administered on 12/15/17 19:40; Start 12/13/17 at 21:00; Stop 12/15/17 at 21:01; Status DC Fluvoxamine Maleate (Luvox) 75 mg QHS PO ; Start 12/16/17 at 21:00 Nystatin (Nystop) 1 porsche BID TP Last administered on 12/15/17at 19:44; Start at 09:00 Active Scripts Active Reported Triamcinolone Acetonide 15 Gm Cream..g. 1 Porsche TP PRN TID PRN Nystop (Nystatin) 60 Gm Powder 1 Porsche TP PRN TID PRN Novolog Flexpen (Insulin Aspart) 100 Unit/1 Ml Insuln.pen 25 Unit SQ DAILYBFRLUN Novolog Flexpen (Insulin Aspart) 100 Unit/1 Ml Insuln.pen 15 Unit SQ DAILYWSUP Novolog Flexpen (Insulin Aspart) 100 Unit/1 Ml Insuln.pen 10 Unit SQ DAILYWBKFT [IBgard pepermint oil] 90mg Cap 90 Mg PO TIDWMEALS Omeprazole 20 Mg Capsule.dr 20 Mg PO DAILY06 Seroquel (Quetiapine Fumarate) 25 Mg Tablet 25 Mg PO PRN Q2HR PRN Quetiapine Fumarate 25 Mg Tablet 25 Mg PO TID Trazodone Hcl 50 Mg Tablet 50 Mg PO TIDWMEALS Clonazepam 0.5 Mg Tablet 0.5 Mg PO BID@1200,2100 Calmoseptine Ointment (Menthol/Zinc Oxide) 71 Gm Oint...g. 1 Porsche TP PRN PRN Anusol-Hc (Hydrocortisone Acetate) 25 Mg Supp.rect 25 Mg RC PRN DAILY PRN Probiotic (Lactobacillus Acidophilus) 1 Each Capsule 1 Cap PO BID Lantus (Insulin Glargine,Hum.rec.anlog) 100 Unit/1 Ml Vial 45 Units SQ QHS Analgesic [place] (Methyl Salicylate/Menthol) 29 Gm Oint...g. 1 Porsche TP PRN QID PRN Mag-Al Plus Xs Suspension (Mag Hydrox/Al Hydrox/Simeth) 30 Ml Oral.susp 15 Ml PO PRN BFRMEALHC PRN Levothyroxine Sodium 25 Mcg Tablet 25 Mcg PO DAILY06 Melatonin 5 Mg Tablet 5 Mg PO PRN QHS PRN Colace (Docusate Sodium) 100 Mg Capsule 100 Mg PO PRN BID PRN Hold for Loose stools Milk Of Magnesia (Magnesium Hydroxide) 400 Mg/5 Ml Oral.susp 2,400 Mg PO PRN QHS PRN Vitamin D3 (Cholecalciferol (Vitamin D3)) 50,000 Unit Capsule 50,000 Unit PO QMONTH Administer on the of every Month Zestril (Lisinopril) 10 Mg Tablet 10 Mg PO DAILY Hold for SBP less than 100. After a held dose, reassess in 2 hours. If SBP is above threshold admminister dose as ordered. If SBP is below threshold, contact provider for additional instructions Oyster Shell Calcium (Calcium Carbonate) 500 Mg Tablet 1,000 Mg PO DAILY Multivitamins (Multivitamin) 1 Each Tablet 1 Tab PO DAILYWSUP Fenofibrate 54 Mg Tablet 54 Mg PO QHS I have reviewed the current psychotropics carefully including drug interactions. Risk benefit ratio favors no change other than as noted in my dictated progress note. Diagnosis: Problems: (1) Anxiety (2) Dementia (3) Dementia (4) Impulse control disorder (5) Obsessive compulsive disorder (6) Medical clearance for psychiatric admission (7) Mood disorder (8) IMPULSE DISORDER, UNSPECIFIED (9) Impulse control disorder (10) DMII (diabetes mellitus, type 2) (11) Intellectual disability IDA LAINEZ MD Dec 15, 2017 21:03
[2017-12-16 06:20] VITALS: BP 123/56
[2017-12-16] MEDS: LEVOTHYROXINE 25 MCG TABLET. PO SCH (06:24)
[2017-12-16] MEDS: PANTOPRAZOLE 40 MG TABLET. PO SCH (09:10)
[2017-12-16] MEDS: traZODone 50 MG TABLET. PO SCH ×3 (09:10→17:21)
[2017-12-16] MEDS: CALCIUM CARBONATE 500 MG TABLET PO SCH (09:10)
[2017-12-16] MEDS: LISINOPRIL 10 MG TABLET PO SCH (09:10)
[2017-12-16] MEDS: LACTOBACILLUS RHAMNOSUS GG 1 CAPSULE. PO SCH ×2 (09:11→19:51)
[2017-12-16] MEDS: QUEtiapine 25 MG TABLET. PO SCH ×3 (09:11→19:51)
[2017-12-16] MEDS: CEPHALEXIN 250 MG CAPSULE PO SCH ×2 (09:11→19:51)
[2017-12-16] MEDS: NYSTATIN TOPICAL POWDER 15GM BOTTLE. TP SCH ×2 (09:12→19:52)
[2017-12-16] MEDS: INSULIN ASPART 300 UNITS/3 ML INSULN.PEN SQ SCH ×3 (09:13→17:23)
[2017-12-16] MEDS: clonazePAM 0.5 MG TABLET PO SCH ×2 (11:53→19:51)
--- NOTE | 2017-12-16 14:08 | PN ---
DATE: 12/14/2017 This late entry, 12/14/2017, covers elements not covered in my initial note of 12/14/2017. SUBJECTIVE: I met with the patient the evening of 12/14/2017. She followed me around the unit after I met with her repeatedly asking about discharge plans, but less intrusive, more redirectable, even though very slightly. REVIEW OF SYSTEMS: Ambulation impaired with walker. No CV, , pulmonary, eye system symptoms on review. MENTAL STATUS EXAM: Oriented to herself and situation. Speech coherent and repetitive, abstraction fair, computation impaired, language function intact. Mood and affect still anxious, obsessive, labile, some improvement. IMPRESSION: Bipolar 1 disorder, mixed; borderline intellectual functioning; obsessive-compulsive disorder. Rest unchanged. PLAN: Continue current psychotropics. Luvox restarted. We will gradually increase it. Rest unchanged. MAN Stuart LAINEZ MD DR: YO/bakari JOB#: [id number] / [id number]
--- NOTE | 2017-12-16 15:06 | PN ---
DATE: 12/15/2017 PSYCHIATRIC PROGRESS NOTE This late entry 12/15/2017 covers elements, not covered in my initial note of 12/15/2017. I met with the patient in the evening of 12/15/2017, and then again she followed me around the unit, later when I was at the nursing station. She is banging on the glass doors, constantly yelling out for me, wanting to be discharged, persistent, obsessive, but despite this earlier in the day, she was less obsessive per nursing report. REVIEW OF SYSTEMS: Ambulation impaired with walker. No CV, , pulmonary, eye, ENT system symptoms on review. ____ movements that are unchanged. MENTAL STATUS EXAMINATION: Speech coherent, abstraction fair, computation impaired, language function intact, attention span short. Mood and affect somewhat labile. IMPRESSION: Unchanged. PLAN: Continue current psychotropics. Increase Luvox gradually. MAN Stuart LAINEZ MD DR: YO/bakari JOB#: [id number] / [id number]
[2017-12-16 16:09] VITALS: BP 117/48
[2017-12-16] MEDS: MULTIVITAMIN with MINERAL TABLET. PO SCH (17:21)
[2017-12-16] MEDS: FENOFIBRATE NANOCRYSTALLIZED 48 MG TABLET PO SCH (19:52)
[2017-12-16] MEDS: INSULIN DETEMIR 300 UNITS/3 ML INSULN.PEN. SQ SCH (19:54)
--- NOTE | 2017-12-16 20:05 | PDOC ---
Exam Note: Marcelo Note: Please also refer to the separate dictated note~for this date of service dictated separately.~Patient seen individually. Discussed the patient with Nursing staff reviewed the chart.~Reviewed interim history and current functioning. Reviewed vital signs,~Labs/ Radiology~and current medications noted below. Continue current treatment with the changes noted in the dictated addendum note Assessment: Vital Signs: Vital Signs Date Time Temp Pulse Resp B/P (MAP) Pulse Ox O2 Delivery O2 Flow Rate FiO2 12/16/17 16:09 96.9 79 16 117/48 (71) 96 12/15/17 16:34 Room Air 12/14/17 16:02 93.0 I&O Intake and Output 12/16/17 07:00 Intake Total 1940 ml Balance 1940 ml Intake Oral 1940 ml Labs: Laboratory Tests Test 12/16/17 07:56 12/16/17 11:44 12/16/17 16:59 12/16/17 19:14 Glucose (Fingerstick) 237 mg/dL (70-99) H 284 mg/dL (70-99) H 200 mg/dL (70-99) H 226 mg/dL (70-99) H Current Medications: Meds: Current Medications Clonazepam (KlonoPIN) 0.5 mg BID@1200,2100 PO Last administered on 12/16/17at 19: 51; Start 12/08/17 at 22:00 Quetiapine Fumarate (SEROquel) 25 mg TID PO Last administered on 12/12/17at 14: 23; Start 12/08/17 at 22:00; Stop 12/12/17 at 18:40; Status DC Quetiapine Fumarate (SEROquel) 25 mg PRN Q2HR PRN PO ANXIETY / AGITATION; Start 12/08/17 at 21:45 Trazodone HCl (Desyrel) 50 mg TIDWMEALS PO Last administered on 12/16/17at 17:21 ; Start 12/09/17 at 08:00 Melatonin 6 mg PRN QHS PRN PO INSOMNIA Last administered on 12/09/17at 20:15; Start 12/08/17 at 21:45 Calcium Carbonate/ Glycine (Oscal) 1,000 mg DAILYWBKFT PO Last administered on 12/16/17at 09:10; Start 12/09/17 at 08:00 Vitamin D (Vitamin D3) 50,000 unit QMONTH PO ; Start 01/07/18 at 09:00 Docusate Sodium (Colace) 100 mg PRN BID PRN PO CONSTIPATION; Start 12/08/17 at 22:30 Hydrocortisone Acetate (Anucort-Hc) 25 mg PRN DAILY PRN RC burning or blood in BM; Start 12/08/17 at 22:30 Insulin Aspart (NovoLOG) 10 units DAILYWBKFT SQ Last administered on 12/16/17at 09:13; Start 12/09/17 at 08:00 Insulin Aspart (NovoLOG) 15 units DAILYWSUP SQ Last administered on 12/16/17at 17 :23; Start 12/09/17 at 17:00 Insulin Aspart (NovoLOG) 25 units DAILYBFRLUN SQ Last administered on 12/16/17at 11:54; Start 12/09/17 at 11:30 Levothyroxine Sodium (Synthroid) 25 mcg DAILY06 PO Last administered on at 06:24; Start 12/09/17 at 06:00 Lisinopril (Prinivil) 10 mg DAILY PO Last administered on 12/16/17at 09:10; Start 12/09/17 at 09:00 Al Hydroxide/Mg Hydroxide (Mylanta Plus Xs) 15 ml PRN BFRMEALHC PRN PO DYSPEPSIA; Start 12/08/17 at 22:30 Magnesium Hydroxide (Milk Of Magnesia) 2,400 mg PRN QHS PRN PO CONSTIPATION; Start 12/08/17 at 22:30 Calamine/Phenol (Calmoseptine) 1 porsche PRN TID PRN TP SKIN PROTECTION; Start at 22:30 Multi-Ingredient Ointment (Analgesic [place]) 1 porsche PRN QID PRN TP MUSCLE PAIN; Start 12/08/17 at 22:30 Nystatin (Nystop) 1 porsche PRN TID PRN TP RASH; Start 12/08/17 at 22:30 Triamcinolone Acetonide (Aristocort) 1 porsche PRN TID PRN TP RASH; Start 12/08/17 at 22:30 Fenofibrate (Tricor) 48 mg QHS PO Last administered on 12/16/17at 19:52; Start at 21:00 Insulin Glargine (Lantus) 45 units QHS SQ ; Start 12/09/17 at 21:00; Status Cancel Lactobacillus Rhamnosus (Culturelle) 1 cap BID PO Last administered on 19:51; Start 12/09/17 at 09:00 Multivitamins/ Calcium (Thera-M Plus) 1 tab DAILYWSUP PO Last administered on at 17:21; Start 12/09/17 at 17:00 Pantoprazole Sodium (Protonix) 40 mg DAILYAC PO Last administered on 12/16/17at 09:10; Start 12/09/17 at 07:30 Non-Formulary Medication 90 mg TIDWMEALS PO ; Start 12/09/17 at 08:00; Stop at 08:00; Status DC Insulin Detemir (Levemir) 45 units QHS SQ Last administered on 12/16/17 19:54; Start 12/09/17 at 21:00 Olanzapine (ZyPREXA ZYDIS) 2.5 mg PRN Q2HR PRN PO PSYCHOSIS; Start 12/08/17 at 23:30 Cephalexin HCl (Keflex) 500 mg BID PO Last administered on 12/16/17 19:51; Start 12/09/17 at 09:00 Fluvoxamine Maleate (Luvox) 25 mg DAILY PO Last administered on 12/12/17at 08:30 ; Start 12/10/17 at 09:00; Stop 12/12/17 at 18:40; Status DC Fluvoxamine Maleate (Luvox) 50 mg DAILY PO ; Start 12/13/17 at 09:00; Stop at 09:00; Status DC Fluvoxamine Maleate (Luvox) 75 mg DAILY PO ; Start 12/16/17 at 09:01; Stop at 09:01; Status DC Quetiapine Fumarate (SEROquel) 37.5 mg TID PO Last administered on 12/16/17 19: 51; Start 12/12/17 at 21:00 Fenofibrate (Tricor) 48 mg STK-MED ONCE PO ; Start 12/09/17 at 09:00; Stop at 09:02; Status DC Multivitamins/ Calcium (Thera-M Plus) 1 tab STK-MED ONCE .ROUTE ; Start at 09:00; Stop 12/13/17 at 09:02; Status DC Fenofibrate (Tricor) 48 mg STK-MED ONCE PO ; Start 12/10/17 at 09:00; Stop at 09:03; Status DC Multivitamins/ Calcium (Thera-M Plus) 1 tab STK-MED ONCE .ROUTE ; Start at 09:00; Stop 12/13/17 at 09:03; Status DC Fenofibrate (Tricor) 48 mg STK-MED ONCE PO ; Start 12/11/17 at 09:00; Stop at 09:03; Status DC Multivitamins/ Calcium (Thera-M Plus) 1 tab STK-MED ONCE .ROUTE ; Start at 09:00; Stop 12/13/17 at 09:03; Status DC Fenofibrate (Tricor) 48 mg STK-MED ONCE PO ; Start 12/12/17 at 09:00; Stop at 09:04; Status DC Multivitamins/ Calcium (Thera-M Plus) 1 tab STK-MED ONCE .ROUTE ; Start at 09:00; Stop 12/13/17 at 09:04; Status DC Fluvoxamine Maleate (Luvox) 50 mg QHS PO Last administered on 12/15/17at 19:40; Start 12/13/17 at 21:00; Stop 12/15/17 at 21:01; Status DC Fluvoxamine Maleate (Luvox) 75 mg QHS PO Last administered on 12/16/17at 19:55; Start 12/16/17 at 21:00 Nystatin (Nystop) 1 porsche BID TP Last administered on 12/16/17at 19:52; Start at 09:00 Active Scripts Active Reported Triamcinolone Acetonide 15 Gm Cream..g. 1 Porsche TP PRN TID PRN Nystop (Nystatin) 60 Gm Powder 1 Porsche TP PRN TID PRN Novolog Flexpen (Insulin Aspart) 100 Unit/1 Ml Insuln.pen 25 Unit SQ DAILYBFRLUN Novolog Flexpen (Insulin Aspart) 100 Unit/1 Ml Insuln.pen 15 Unit SQ DAILYWSUP Novolog Flexpen (Insulin Aspart) 100 Unit/1 Ml Insuln.pen 10 Unit SQ DAILYWBKFT [IBgard pepermint oil] 90mg Cap 90 Mg PO TIDWMEALS Omeprazole 20 Mg Capsule.dr 20 Mg PO DAILY06 Seroquel (Quetiapine Fumarate) 25 Mg Tablet 25 Mg PO PRN Q2HR PRN Quetiapine Fumarate 25 Mg Tablet 25 Mg PO TID Trazodone Hcl 50 Mg Tablet 50 Mg PO TIDWMEALS Clonazepam 0.5 Mg Tablet 0.5 Mg PO BID@1200,2100 Calmoseptine Ointment (Menthol/Zinc Oxide) 71 Gm Oint...g. 1 Porsche TP PRN PRN Anusol-Hc (Hydrocortisone Acetate) 25 Mg Supp.rect 25 Mg RC PRN DAILY PRN Probiotic (Lactobacillus Acidophilus) 1 Each Capsule 1 Cap PO BID Lantus (Insulin Glargine,Hum.rec.anlog) 100 Unit/1 Ml Vial 45 Units SQ QHS Analgesic [place] (Methyl Salicylate/Menthol) 29 Gm Oint...g. 1 Porsche TP PRN QID PRN Mag-Al Plus Xs Suspension (Mag Hydrox/Al Hydrox/Simeth) 30 Ml Oral.susp 15 Ml PO PRN BFRMEALHC PRN Levothyroxine Sodium 25 Mcg Tablet 25 Mcg PO DAILY06 Melatonin 5 Mg Tablet 5 Mg PO PRN QHS PRN Colace (Docusate Sodium) 100 Mg Capsule 100 Mg PO PRN BID PRN Hold for Loose stools Milk Of Magnesia (Magnesium Hydroxide) 400 Mg/5 Ml Oral.susp 2,400 Mg PO PRN QHS PRN Vitamin D3 (Cholecalciferol (Vitamin D3)) 50,000 Unit Capsule 50,000 Unit PO QMONTH Administer on the of every Month Zestril (Lisinopril) 10 Mg Tablet 10 Mg PO DAILY Hold for SBP less than 100. After a held dose, reassess in 2 hours. If SBP is above threshold admminister dose as ordered. If SBP is below threshold, contact provider for additional instructions Oyster Shell Calcium (Calcium Carbonate) 500 Mg Tablet 1,000 Mg PO DAILY Multivitamins (Multivitamin) 1 Each Tablet 1 Tab PO DAILYWSUP Fenofibrate 54 Mg Tablet 54 Mg PO QHS I have reviewed the current psychotropics carefully including drug interactions. Risk benefit ratio favors no change other than as noted in my dictated progress note. Diagnosis: Problems: (1) Anxiety (2) Dementia (3) Dementia (4) Impulse control disorder (5) Obsessive compulsive disorder (6) Medical clearance for psychiatric admission (7) Mood disorder (8) IMPULSE DISORDER, UNSPECIFIED (9) Impulse control disorder (10) DMII (diabetes mellitus, type 2) (11) Intellectual disability IDA LAINEZ MD Dec 16, 2017 20:05
[2017-12-17] MEDS: LEVOTHYROXINE 25 MCG TABLET. PO SCH (06:15)
[2017-12-17 06:20] VITALS: BP 129/68
[2017-12-17] MEDS: LACTOBACILLUS RHAMNOSUS GG 1 CAPSULE. PO SCH ×2 (09:13→19:27)
[2017-12-17] MEDS: traZODone 50 MG TABLET. PO SCH ×3 (09:13→17:15)
[2017-12-17] MEDS: CALCIUM CARBONATE 500 MG TABLET PO SCH (09:13)
[2017-12-17] MEDS: QUEtiapine 25 MG TABLET. PO SCH ×3 (09:13→19:27)
[2017-12-17] MEDS: PANTOPRAZOLE 40 MG TABLET. PO SCH (09:13)
[2017-12-17] MEDS: NYSTATIN TOPICAL POWDER 15GM BOTTLE. TP SCH ×2 (09:14→19:28)
[2017-12-17] MEDS: LISINOPRIL 10 MG TABLET PO SCH (09:14)
[2017-12-17] MEDS: CEPHALEXIN 250 MG CAPSULE PO SCH ×2 (09:14→19:27)
[2017-12-17] MEDS: INSULIN ASPART 300 UNITS/3 ML INSULN.PEN SQ SCH ×3 (09:15→17:19)
[2017-12-17] MEDS: clonazePAM 0.5 MG TABLET PO SCH ×2 (12:41→19:28)
[2017-12-17 16:19] VITALS: BP 177/76
[2017-12-17] MEDS: MULTIVITAMIN with MINERAL TABLET. PO SCH (17:15)
[2017-12-17] MEDS: FENOFIBRATE NANOCRYSTALLIZED 48 MG TABLET PO SCH (19:27)
[2017-12-17] MEDS: INSULIN DETEMIR 300 UNITS/3 ML INSULN.PEN. SQ SCH (19:39)
--- NOTE | 2017-12-17 19:53 | PDOC ---
Exam Note: Marcelo Note: Please also refer to the separate dictated note~for this date of service dictated separately.~Patient seen individually. Discussed the patient with Nursing staff reviewed the chart.~Reviewed interim history and current functioning. Reviewed vital signs,~Labs/ Radiology~and current medications noted below. Continue current treatment with the changes noted in the dictated addendum note Assessment: Vital Signs: Vital Signs Date Time Temp Pulse Resp B/P (MAP) Pulse Ox O2 Delivery O2 Flow Rate FiO2 12/17/17 16:19 97.4 114 18 177/76 (109) 98 12/15/17 16:34 Room Air 12/14/17 16:02 93.0 I&O Intake and Output 12/17/17 07:00 Intake Total 1320 ml Balance 1320 ml Intake Oral 1320 ml # Voids 1 # Bowel Movements 1 Labs: Laboratory Tests Test 12/17/17 07:34 12/17/17 11:00 12/17/17 16:49 12/17/17 18:55 Glucose (Fingerstick) 204 mg/dL (70-99) H 257 mg/dL (70-99) H 177 mg/dL (70-99) H 148 mg/dL (70-99) H Current Medications: Meds: Current Medications Clonazepam (KlonoPIN) 0.5 mg BID@1200,2100 PO Last administered on 12/17/17 19: 28; Start 12/08/17 at 22:00 Quetiapine Fumarate (SEROquel) 25 mg TID PO Last administered on 12/12/17at 14: 23; Start 12/08/17 at 22:00; Stop 12/12/17 at 18:40; Status DC Quetiapine Fumarate (SEROquel) 25 mg PRN Q2HR PRN PO ANXIETY / AGITATION; Start 12/08/17 at 21:45 Trazodone HCl (Desyrel) 50 mg TIDWMEALS PO Last administered on 12/17/17at 17:15 ; Start 12/09/17 at 08:00 Melatonin 6 mg PRN QHS PRN PO INSOMNIA Last administered on 12/09/17at 20:15; Start 12/08/17 at 21:45 Calcium Carbonate/ Glycine (Oscal) 1,000 mg DAILYWBKFT PO Last administered on 12/17/17at 09:13; Start 12/09/17 at 08:00 Vitamin D (Vitamin D3) 50,000 unit QMONTH PO ; Start 01/07/18 at 09:00 Docusate Sodium (Colace) 100 mg PRN BID PRN PO CONSTIPATION; Start 12/08/17 at 22:30 Hydrocortisone Acetate (Anucort-Hc) 25 mg PRN DAILY PRN RC burning or blood in BM; Start 12/08/17 at 22:30 Insulin Aspart (NovoLOG) 10 units DAILYWBKFT SQ Last administered on 12/17/17at 09:15; Start 12/09/17 at 08:00 Insulin Aspart (NovoLOG) 15 units DAILYWSUP SQ Last administered on 12/17/17at 17 :19; Start 12/09/17 at 17:00 Insulin Aspart (NovoLOG) 25 units DAILYBFRLUN SQ Last administered on 12/17/17at 12:42; Start 12/09/17 at 11:30 Levothyroxine Sodium (Synthroid) 25 mcg DAILY06 PO Last administered on at 06:15; Start 12/09/17 at 06:00 Lisinopril (Prinivil) 10 mg DAILY PO Last administered on 12/17/17at 09:14; Start 12/09/17 at 09:00 Al Hydroxide/Mg Hydroxide (Mylanta Plus Xs) 15 ml PRN BFRMEALHC PRN PO DYSPEPSIA; Start 12/08/17 at 22:30 Magnesium Hydroxide (Milk Of Magnesia) 2,400 mg PRN QHS PRN PO CONSTIPATION; Start 12/08/17 at 22:30 Calamine/Phenol (Calmoseptine) 1 porsche PRN TID PRN TP SKIN PROTECTION; Start at 22:30 Multi-Ingredient Ointment (Analgesic [place]) 1 porsche PRN QID PRN TP MUSCLE PAIN; Start 12/08/17 at 22:30 Nystatin (Nystop) 1 porsceh PRN TID PRN TP RASH; Start 12/08/17 at 22:30 Triamcinolone Acetonide (Aristocort) 1 porsche PRN TID PRN TP RASH; Start 12/08/17 at 22:30 Fenofibrate (Tricor) 48 mg QHS PO Last administered on 12/17/17at 19:27; Start at 21:00 Insulin Glargine (Lantus) 45 units QHS SQ ; Start 12/09/17 at 21:00; Status Cancel Lactobacillus Rhamnosus (Culturelle) 1 cap BID PO Last administered on 19:27; Start 12/09/17 at 09:00 Multivitamins/ Calcium (Thera-M Plus) 1 tab DAILYWSUP PO Last administered on at 17:15; Start 12/09/17 at 17:00 Pantoprazole Sodium (Protonix) 40 mg DAILYAC PO Last administered on 12/17/17at 09:13; Start 12/09/17 at 07:30 Non-Formulary Medication 90 mg TIDWMEALS PO ; Start 12/09/17 at 08:00; Stop at 08:00; Status DC Insulin Detemir (Levemir) 45 units QHS SQ Last administered on 12/17/17at 19:39; Start 12/09/17 at 21:00 Olanzapine (ZyPREXA ZYDIS) 2.5 mg PRN Q2HR PRN PO PSYCHOSIS; Start 12/08/17 at 23:30 Cephalexin HCl (Keflex) 500 mg BID PO Last administered on 12/17/17 19:27; Start 12/09/17 at 09:00 Fluvoxamine Maleate (Luvox) 25 mg DAILY PO Last administered on 12/12/17at 08:30 ; Start 12/10/17 at 09:00; Stop 12/12/17 at 18:40; Status DC Fluvoxamine Maleate (Luvox) 50 mg DAILY PO ; Start 12/13/17 at 09:00; Stop at 09:00; Status DC Fluvoxamine Maleate (Luvox) 75 mg DAILY PO ; Start 12/16/17 at 09:01; Stop at 09:01; Status DC Quetiapine Fumarate (SEROquel) 37.5 mg TID PO Last administered on 12/17/17 19: 27; Start 12/12/17 at 21:00 Fenofibrate (Tricor) 48 mg STK-MED ONCE PO ; Start 12/09/17 at 09:00; Stop at 09:02; Status DC Multivitamins/ Calcium (Thera-M Plus) 1 tab STK-MED ONCE .ROUTE ; Start at 09:00; Stop 12/13/17 at 09:02; Status DC Fenofibrate (Tricor) 48 mg STK-MED ONCE PO ; Start 12/10/17 at 09:00; Stop at 09:03; Status DC Multivitamins/ Calcium (Thera-M Plus) 1 tab STK-MED ONCE .ROUTE ; Start at 09:00; Stop 12/13/17 at 09:03; Status DC Fenofibrate (Tricor) 48 mg STK-MED ONCE PO ; Start 12/11/17 at 09:00; Stop at 09:03; Status DC Multivitamins/ Calcium (Thera-M Plus) 1 tab STK-MED ONCE .ROUTE ; Start at 09:00; Stop 12/13/17 at 09:03; Status DC Fenofibrate (Tricor) 48 mg STK-MED ONCE PO ; Start 12/12/17 at 09:00; Stop at 09:04; Status DC Multivitamins/ Calcium (Thera-M Plus) 1 tab STK-MED ONCE .ROUTE ; Start at 09:00; Stop 12/13/17 at 09:04; Status DC Fluvoxamine Maleate (Luvox) 50 mg QHS PO Last administered on 12/15/17at 19:40; Start 12/13/17 at 21:00; Stop 12/15/17 at 21:01; Status DC Fluvoxamine Maleate (Luvox) 75 mg QHS PO Last administered on 12/17/17at 19:27; Start 12/16/17 at 21:00 Nystatin (Nystop) 1 porsche BID TP Last administered on 12/17/17at 19:28; Start at 09:00 Active Scripts Active Reported Triamcinolone Acetonide 15 Gm Cream..g. 1 Porsche TP PRN TID PRN Nystop (Nystatin) 60 Gm Powder 1 [place]orsche TP PRN TID PRN Novolog Flexpen (Insulin Aspart) 100 Unit/1 Ml Insuln.pen 25 Unit SQ DAILYBFRLUN Novolog Flexpen (Insulin Aspart) 100 Unit/1 Ml Insuln.pen 15 Unit SQ DAILYWSUP Novolog Flexpen (Insulin Aspart) 100 Unit/1 Ml Insuln.pen 10 Unit SQ DAILYWBKFT [IBgard pepermint oil] 90mg Cap 90 Mg PO TIDWMEALS Omeprazole 20 Mg Capsule.dr 20 Mg PO DAILY06 Seroquel (Quetiapine Fumarate) 25 Mg Tablet 25 Mg PO PRN Q2HR PRN Quetiapine Fumarate 25 Mg Tablet 25 Mg PO TID Trazodone Hcl 50 Mg Tablet 50 Mg PO TIDWMEALS Clonazepam 0.5 Mg Tablet 0.5 Mg PO BID@1200,2100 Calmoseptine Ointment (Menthol/Zinc Oxide) 71 Gm Oint...g. 1 [place]orsche TP PRN PRN Anusol-Hc (Hydrocortisone Acetate) 25 Mg Supp.rect 25 Mg RC PRN DAILY PRN Probiotic (Lactobacillus Acidophilus) 1 Each Capsule 1 Cap PO BID Lantus (Insulin Glargine,Hum.rec.anlog) 100 Unit/1 Ml Vial 45 Units SQ QHS Analgesic [place] (Methyl Salicylate/Menthol) 29 Gm Oint...g. 1 [place]orsche TP PRN QID PRN Mag-Al Plus Xs Suspension (Mag Hydrox/Al Hydrox/Simeth) 30 Ml Oral.susp 15 Ml PO PRN BFRMEALHC PRN Levothyroxine Sodium 25 Mcg Tablet 25 Mcg PO DAILY06 Melatonin 5 Mg Tablet 5 Mg PO PRN QHS PRN Colace (Docusate Sodium) 100 Mg Capsule 100 Mg PO PRN BID PRN Hold for Loose stools Milk Of Magnesia (Magnesium Hydroxide) 400 Mg/5 Ml Oral.susp 2,400 Mg PO PRN QHS PRN Vitamin D3 (Cholecalciferol (Vitamin D3)) 50,000 Unit Capsule 50,000 Unit PO QMONTH Administer on the of every Month Zestril (Lisinopril) 10 Mg Tablet 10 Mg PO DAILY Hold for SBP less than 100. After a held dose, reassess in 2 hours. If SBP is above threshold admminister dose as ordered. If SBP is below threshold, contact provider for additional instructions Oyster Shell Calcium (Calcium Carbonate) 500 Mg Tablet 1,000 Mg PO DAILY Multivitamins (Multivitamin) 1 Each Tablet 1 Tab PO DAILYWSUP Fenofibrate 54 Mg Tablet 54 Mg PO QHS I have reviewed the current psychotropics carefully including drug interactions. Risk benefit ratio favors no change other than as noted in my dictated progress note. Diagnosis: Problems: (1) Anxiety (2) Dementia (3) Dementia (4) Impulse control disorder (5) Obsessive compulsive disorder (6) Medical clearance for psychiatric admission (7) Mood disorder (8) IMPULSE DISORDER, UNSPECIFIED (9) Impulse control disorder (10) DMII (diabetes mellitus, type 2) (11) Intellectual disability IDA LAINEZ MD Dec 17, 2017 19:53
--- NOTE | 2017-12-18 00:37 | PN ---
DATE: 12/16/2017 This is a late entry 12/16/2017 covers elements not covered in my initial note 12/16/2017, met with the patient in the evening of 12/16/2017 several times that she would follow me around the unit and then later when I was sitting at the nursing station getting a report on all the patients, she was back banging on the glass door shouting across that she insists on being discharged on Sunday, quite obsessive, but much of the day she is more redirectable than she was a few days back, somewhat attention seeking, wanting a diaper. REVIEW OF SYSTEMS: Ambulation impaired with walker. No CV, , pulmonary, eye, ENT system symptoms on review. MENTAL STATUS EXAM: Oriented to herself and situation. Speech is coherent, rapid. Abstraction fair, computation impaired, language function intact, attention span short. Mood and affect remain somewhat anxious, labile but showing some improvement. LABORATORY DATA: Reviewed. IMPRESSION: Bipolar 1 disorder, mixed; OCD; borderline intellectual functioning. PLAN: Continue psychotropics mentioned in my initial note. The patient's UTI has been treated on Keflex. MAN Stuart LAINEZ MD DR: YO/bakari JOB#: [id number] / [id number]
[2017-12-18] MEDS: LEVOTHYROXINE 25 MCG TABLET. PO SCH (05:35)
[2017-12-18 05:59] VITALS: BP 115/58
[2017-12-18] MEDS: NYSTATIN TOPICAL POWDER 15GM BOTTLE. TP SCH ×2 (08:34→19:48)
[2017-12-18] MEDS: CALCIUM CARBONATE 500 MG TABLET PO SCH (08:35)
[2017-12-18] MEDS: QUEtiapine 25 MG TABLET. PO SCH ×3 (08:35→19:47)
[2017-12-18] MEDS: traZODone 50 MG TABLET. PO SCH ×3 (08:35→16:50)
[2017-12-18] MEDS: LISINOPRIL 10 MG TABLET PO SCH (08:36)
[2017-12-18] MEDS: PANTOPRAZOLE 40 MG TABLET. PO SCH (08:36)
[2017-12-18] MEDS: CEPHALEXIN 250 MG CAPSULE PO SCH (08:36)
[2017-12-18] MEDS: LACTOBACILLUS RHAMNOSUS GG 1 CAPSULE. PO SCH ×2 (08:36→19:48)
[2017-12-18] MEDS: INSULIN ASPART 300 UNITS/3 ML INSULN.PEN SQ SCH ×3 (08:37→16:54)
[2017-12-18] MEDS: clonazePAM 0.5 MG TABLET PO SCH ×2 (11:58→19:51)
[2017-12-18 15:52] VITALS: BP 105/78
[2017-12-18] MEDS: MULTIVITAMIN with MINERAL TABLET. PO SCH (16:50)
--- NOTE | 2017-12-18 19:06 | PN ---
DATE: 12/17/2017 This is a late entry 12/17/2017 covers elements not covered in my initial note 12/17/2017. I met with the patient in the evening of 12/17/2017. The patient slept 6-1/4 hours previous evening, little better early in the morning, but later in the evening she was ____ in her room, obsessed about her discharge plans as I met with her repetitive, followed me around the unit, repeatedly asking the same questions, but towards the end, a little easier to redirect than the days before. At one point, she pulled her pants and briefs down and urinated on the floor, knew exactly what she was doing. Nursing staff helped her mop up the floor, she seemed to indicate she will not do it again. REVIEW OF SYSTEMS: Ambulation impaired. No CV, , pulmonary, eye, ENT system symptoms on review. MENTAL STATUS EXAM: Oriented to herself and situation. Speech coherent, rapid at times. Abstraction fair, computation impaired, language function intact. Mood and affect, lability showing some improvement, still obsessive, anxious. LABORATORY DATA: Reviewed. IMPRESSION: Bipolar 1 disorder, mixed; obsessive-compulsive disorder, borderline intellectual functioning. PLAN: No change from a psychiatric standpoint, continue to gradually increase the fluvoxamine to 75 mg a day. Rest unchanged. MAN Stuart LAINEZ MD DR: YO/bakari JOB#: [id number] / [id number]
[2017-12-18] MEDS: INSULIN DETEMIR 300 UNITS/3 ML INSULN.PEN. SQ SCH (19:50)
--- NOTE | 2017-12-18 19:50 | PDOC ---
Exam Note: Marcelo Note: Please also refer to the separate dictated note~for this date of service dictated separately.~Patient seen individually. Discussed the patient with Nursing staff reviewed the chart.~Reviewed interim history and current functioning. Reviewed vital signs,~Labs/ Radiology~and current medications noted below. Continue current treatment with the changes noted in the dictated addendum note Assessment: Vital Signs: Vital Signs Date Time Temp Pulse Resp B/P (MAP) Pulse Ox O2 Delivery O2 Flow Rate FiO2 12/18/17 15:52 98.6 84 18 105/78 (87) 94 12/15/17 16:34 Room Air 12/14/17 16:02 93.0 I&O Intake and Output 12/18/17 07:00 Intake Total 1800 ml Balance 1800 ml Intake Oral 1800 ml # Voids 3 Labs: Laboratory Tests Test 12/18/17 07:15 12/18/17 11:32 12/18/17 16:22 12/18/17 18:57 Glucose (Fingerstick) 206 mg/dL (70-99) H 304 mg/dL (70-99) H 233 mg/dL (70-99) H 227 mg/dL (70-99) H Current Medications: Meds: Current Medications Clonazepam (KlonoPIN) 0.5 mg BID@1200,2100 PO Last administered on 12/18/17at 11: 58; Start 12/08/17 at 22:00 Quetiapine Fumarate (SEROquel) 25 mg TID PO Last administered on 12/12/17at 14: 23; Start 12/08/17 at 22:00; Stop 12/12/17 at 18:40; Status DC Quetiapine Fumarate (SEROquel) 25 mg PRN Q2HR PRN PO ANXIETY / AGITATION; Start 12/08/17 at 21:45 Trazodone HCl (Desyrel) 50 mg TIDWMEALS PO Last administered on 12/18/17at 16:50 ; Start 12/09/17 at 08:00 Melatonin 6 mg PRN QHS PRN PO INSOMNIA Last administered on 12/09/17at 20:15; Start 12/08/17 at 21:45 Calcium Carbonate/ Glycine (Oscal) 1,000 mg DAILYWBKFT PO Last administered on 12/18/17at 08:35; Start 12/09/17 at 08:00 Vitamin D (Vitamin D3) 50,000 unit QMONTH PO ; Start 01/07/18 at 09:00 Docusate Sodium (Colace) 100 mg PRN BID PRN PO CONSTIPATION; Start 12/08/17 at 22:30 Hydrocortisone Acetate (Anucort-Hc) 25 mg PRN DAILY PRN RC burning or blood in BM; Start 12/08/17 at 22:30 Insulin Aspart (NovoLOG) 10 units DAILYWBKFT SQ Last administered on 12/18/17at 08:37; Start 12/09/17 at 08:00 Insulin Aspart (NovoLOG) 15 units DAILYWSUP SQ Last administered on 12/18/17at 16 :54; Start 12/09/17 at 17:00 Insulin Aspart (NovoLOG) 25 units DAILYBFRLUN SQ Last administered on 12/18/17at 12:00; Start 12/09/17 at 11:30 Levothyroxine Sodium (Synthroid) 25 mcg DAILY06 PO Last administered on at 05:35; Start 12/09/17 at 06:00 Lisinopril (Prinivil) 10 mg DAILY PO Last administered on 12/18/17at 08:36; Start 12/09/17 at 09:00 Al Hydroxide/Mg Hydroxide (Mylanta Plus Xs) 15 ml PRN BFRMEALHC PRN PO DYSPEPSIA; Start 12/08/17 at 22:30 Magnesium Hydroxide (Milk Of Magnesia) 2,400 mg PRN QHS PRN PO CONSTIPATION; Start 12/08/17 at 22:30 Calamine/Phenol (Calmoseptine) 1 porsche PRN TID PRN TP SKIN PROTECTION; Start at 22:30 Multi-Ingredient Ointment (Analgesic [place]) 1 porsche PRN QID PRN TP MUSCLE PAIN; Start 12/08/17 at 22:30 Nystatin (Nystop) 1 porsche PRN TID PRN TP RASH; Start 12/08/17 at 22:30 Triamcinolone Acetonide (Aristocort) 1 porsche PRN TID PRN TP RASH; Start 12/08/17 at 22:30 Fenofibrate (Tricor) 48 mg QHS PO Last administered on 12/17/17at 19:27; Start at 21:00 Insulin Glargine (Lantus) 45 units QHS SQ ; Start 12/09/17 at 21:00; Status Cancel Lactobacillus Rhamnosus (Culturelle) 1 cap BID PO Last administered on at 08:36; Start 12/09/17 at 09:00 Multivitamins/ Calcium (Thera-M Plus) 1 tab DAILYWSUP PO Last administered on at 16:50; Start 12/09/17 at 17:00 Pantoprazole Sodium (Protonix) 40 mg DAILYAC PO Last administered on 12/18/17at 08:36; Start 12/09/17 at 07:30 Non-Formulary Medication 90 mg TIDWMEALS PO ; Start 12/09/17 at 08:00; Stop at 08:00; Status DC Insulin Detemir (Levemir) 45 units QHS SQ Last administered on 12/17/17at 19:39; Start 12/09/17 at 21:00 Olanzapine (ZyPREXA ZYDIS) 2.5 mg PRN Q2HR PRN PO PSYCHOSIS; Start 12/08/17 at 23:30 Cephalexin HCl (Keflex) 500 mg BID PO Last administered on 12/18/17at 08:36; Start 12/09/17 at 09:00; Stop 12/18/17 at 13:19; Status DC Fluvoxamine Maleate (Luvox) 25 mg DAILY PO Last administered on 12/12/17at 08:30 ; Start 12/10/17 at 09:00; Stop 12/12/17 at 18:40; Status DC Fluvoxamine Maleate (Luvox) 50 mg DAILY PO ; Start 12/13/17 at 09:00; Stop at 09:00; Status DC Fluvoxamine Maleate (Luvox) 75 mg DAILY PO ; Start 12/16/17 at 09:01; Stop at 09:01; Status DC Quetiapine Fumarate (SEROquel) 37.5 mg TID PO Last administered on 12/18/17at 13: 02; Start 12/12/17 at 21:00 Fenofibrate (Tricor) 48 mg STK-MED ONCE PO ; Start 12/09/17 at 09:00; Stop at 09:02; Status DC Multivitamins/ Calcium (Thera-M Plus) 1 tab STK-MED ONCE .ROUTE ; Start at 09:00; Stop 12/13/17 at 09:02; Status DC Fenofibrate (Tricor) 48 mg STK-MED ONCE PO ; Start 12/10/17 at 09:00; Stop at 09:03; Status DC Multivitamins/ Calcium (Thera-M Plus) 1 tab STK-MED ONCE .ROUTE ; Start at 09:00; Stop 12/13/17 at 09:03; Status DC Fenofibrate (Tricor) 48 mg STK-MED ONCE PO ; Start 12/11/17 at 09:00; Stop at 09:03; Status DC Multivitamins/ Calcium (Thera-M Plus) 1 tab STK-MED ONCE .ROUTE ; Start at 09:00; Stop 12/13/17 at 09:03; Status DC Fenofibrate (Tricor) 48 mg STK-MED ONCE PO ; Start 12/12/17 at 09:00; Stop at 09:04; Status DC Multivitamins/ Calcium (Thera-M Plus) 1 tab STK-MED ONCE .ROUTE ; Start at 09:00; Stop 12/13/17 at 09:04; Status DC Fluvoxamine Maleate (Luvox) 50 mg QHS PO Last administered on 12/15/17at 19:40; Start 12/13/17 at 21:00; Stop 12/15/17 at 21:01; Status DC Fluvoxamine Maleate (Luvox) 75 mg QHS PO Last administered on 12/17/17at 19:27; Start 12/16/17 at 21:00 Nystatin (Nystop) 1 porsche BID TP Last administered on 12/18/17at 08:34; Start at 09:00 Active Scripts Active Reported Triamcinolone Acetonide 15 Gm Cream..g. 1 Porsche TP PRN TID PRN Nystop (Nystatin) 60 Gm Powder 1 Porsche TP PRN TID PRN Novolog Flexpen (Insulin Aspart) 100 Unit/1 Ml Insuln.pen 25 Unit SQ DAILYBFRLUN Novolog Flexpen (Insulin Aspart) 100 Unit/1 Ml Insuln.pen 15 Unit SQ DAILYWSUP Novolog Flexpen (Insulin Aspart) 100 Unit/1 Ml Insuln.pen 10 Unit SQ DAILYWBKFT [IBgard pepermint oil] 90mg Cap 90 Mg PO TIDWMEALS Omeprazole 20 Mg Capsule.dr 20 Mg PO DAILY06 Seroquel (Quetiapine Fumarate) 25 Mg Tablet 25 Mg PO PRN Q2HR PRN Quetiapine Fumarate 25 Mg Tablet 25 Mg PO TID Trazodone Hcl 50 Mg Tablet 50 Mg PO TIDWMEALS Clonazepam 0.5 Mg Tablet 0.5 Mg PO BID@1200,2100 Calmoseptine Ointment (Menthol/Zinc Oxide) 71 Gm Oint...g. 1 Porsche TP PRN PRN Anusol-Hc (Hydrocortisone Acetate) 25 Mg Supp.rect 25 Mg RC PRN DAILY PRN Probiotic (Lactobacillus Acidophilus) 1 Each Capsule 1 Cap PO BID Lantus (Insulin Glargine,Hum.rec.anlog) 100 Unit/1 Ml Vial 45 Units SQ QHS Analgesic [place] (Methyl Salicylate/Menthol) 29 Gm Oint...g. 1 Porsche TP PRN QID PRN Mag-Al Plus Xs Suspension (Mag Hydrox/Al Hydrox/Simeth) 30 Ml Oral.susp 15 Ml PO PRN BFRMEALHC PRN Levothyroxine Sodium 25 Mcg Tablet 25 Mcg PO DAILY06 Melatonin 5 Mg Tablet 5 Mg PO PRN QHS PRN Colace (Docusate Sodium) 100 Mg Capsule 100 Mg PO PRN BID PRN Hold for Loose stools Milk Of Magnesia (Magnesium Hydroxide) 400 Mg/5 Ml Oral.susp 2,400 Mg PO PRN QHS PRN Vitamin D3 (Cholecalciferol (Vitamin D3)) 50,000 Unit Capsule 50,000 Unit PO QMONTH Administer on the of every Month Zestril (Lisinopril) 10 Mg Tablet 10 Mg PO DAILY Hold for SBP less than 100. After a held dose, reassess in 2 hours. If SBP is above threshold admminister dose as ordered. If SBP is below threshold, contact provider for additional instructions Oyster Shell Calcium (Calcium Carbonate) 500 Mg Tablet 1,000 Mg PO DAILY Multivitamins (Multivitamin) 1 Each Tablet 1 Tab PO DAILYWSUP Fenofibrate 54 Mg Tablet 54 Mg PO QHS I have reviewed the current psychotropics carefully including drug interactions. Risk benefit ratio favors no change other than as noted in my dictated progress note. Diagnosis: Problems: (1) Anxiety (2) Dementia (3) Dementia (4) Impulse control disorder (5) Obsessive compulsive disorder (6) Medical clearance for psychiatric admission (7) Mood disorder (8) IMPULSE DISORDER, UNSPECIFIED (9) Impulse control disorder (10) DMII (diabetes mellitus, type 2) (11) Intellectual disability IDA LAINEZ MD Dec 18, 2017 19:50
[2017-12-18] MEDS: FENOFIBRATE NANOCRYSTALLIZED 48 MG TABLET PO SCH (19:51)
[2017-12-19] MEDS: LEVOTHYROXINE 25 MCG TABLET. PO SCH (05:59)
[2017-12-19 06:00] VITALS: BP 123/57
[2017-12-19] MEDS: NYSTATIN TOPICAL POWDER 15GM BOTTLE. TP SCH ×2 (08:34→19:46)
[2017-12-19] MEDS: QUEtiapine 25 MG TABLET. PO SCH ×3 (08:36→19:46)
[2017-12-19] MEDS: INSULIN ASPART 300 UNITS/3 ML INSULN.PEN SQ SCH ×3 (08:36→17:18)
[2017-12-19] MEDS: PANTOPRAZOLE 40 MG TABLET. PO SCH (08:36)
[2017-12-19] MEDS: traZODone 50 MG TABLET. PO SCH ×3 (08:37→16:43)
[2017-12-19] MEDS: LISINOPRIL 10 MG TABLET PO SCH (08:37)
[2017-12-19] MEDS: CALCIUM CARBONATE 500 MG TABLET PO SCH (08:37)
[2017-12-19] MEDS: LACTOBACILLUS RHAMNOSUS GG 1 CAPSULE. PO SCH ×2 (08:37→19:46)
[2017-12-19] MEDS: clonazePAM 0.5 MG TABLET PO SCH ×2 (11:54→19:47)
[2017-12-19 16:16] VITALS: BP 119/58
[2017-12-19] MEDS: MULTIVITAMIN with MINERAL TABLET. PO SCH (16:43)
--- NOTE | 2017-12-19 17:37 | PN ---
DATE: 12/18/2017 PSYCHIATRIC PROGRESS NOTE This is a late entry for 12/18/2017, covers elements not covered in my initial note of 12/18/2017. SUBJECTIVE: I met with the patient the evening of 12/18/2017 multiple times that she would follow me around the unit, obsessed, repetitive about discharge on Sunday. She is confused, believed the year was 1917, fixated on being discharged on Sunday, helpless regarding toileting antibiotics for UTI completed. REVIEW OF SYSTEMS: Ambulation impaired. No CV, , pulmonary, eye, ENT system symptoms on review. MENTAL STATUS EXAM: Oriented to herself and situation. Speech coherent, rapid, can be pressured, loud at times. Abstraction fair, computation impaired, language function intact, attention span short. Mood and affect labile, quite obsessive. LABORATORY DATA: Reviewed. IMPRESSION: Bipolar 1 disorder, mixed with psychotic features, borderline intellectual functioning. Rest unchanged. PLAN: Continue psychotropics mentioned in my initial note. May need to increase Seroquel in due course. MAN Stuart LAINEZ MD DR: YO/bakari JOB#: [id number] / [id number]
[2017-12-19] MEDS: FENOFIBRATE NANOCRYSTALLIZED 48 MG TABLET PO SCH (19:47)
[2017-12-19] MEDS: INSULIN DETEMIR 300 UNITS/3 ML INSULN.PEN. SQ SCH (19:49)
--- NOTE | 2017-12-19 19:52 | PDOC ---
Exam Note: Marcelo Note: Please also refer to the separate dictated note~for this date of service dictated separately.~Patient seen individually. Discussed the patient with Nursing staff reviewed the chart.~Reviewed interim history and current functioning. Reviewed vital signs,~Labs/ Radiology~and current medications noted below. Continue current treatment with the changes noted in the dictated addendum note Assessment: Vital Signs: Vital Signs Date Time Temp Pulse Resp B/P (MAP) Pulse Ox O2 Delivery O2 Flow Rate FiO2 12/19/17 16:16 97.8 83 18 119/58 (78) 95 12/15/17 16:34 Room Air 12/14/17 16:02 93.0 I&O Intake and Output 12/19/17 07:00 Intake Total 960 ml Balance 960 ml Intake Oral 960 ml # Voids 3 Labs: Laboratory Tests Test 12/19/17 07:23 12/19/17 11:39 12/19/17 16:51 12/19/17 19:05 Glucose (Fingerstick) 216 mg/dL (70-99) H 276 mg/dL (70-99) H 245 mg/dL (70-99) H 335 mg/dL (70-99) H Current Medications: Meds: Current Medications Clonazepam (KlonoPIN) 0.5 mg BID@1200,2100 PO Last administered on 12/19/17at 19: 47; Start 12/08/17 at 22:00 Quetiapine Fumarate (SEROquel) 25 mg TID PO Last administered on 12/12/17at 14: 23; Start 12/08/17 at 22:00; Stop 12/12/17 at 18:40; Status DC Quetiapine Fumarate (SEROquel) 25 mg PRN Q2HR PRN PO ANXIETY / AGITATION; Start 12/08/17 at 21:45 Trazodone HCl (Desyrel) 50 mg TIDWMEALS PO Last administered on 12/19/17at 16:43 ; Start 12/09/17 at 08:00 Melatonin 6 mg PRN QHS PRN PO INSOMNIA Last administered on 12/09/17at 20:15; Start 12/08/17 at 21:45 Calcium Carbonate/ Glycine (Oscal) 1,000 mg DAILYWBKFT PO Last administered on 12/19/17at 08:37; Start 12/09/17 at 08:00 Vitamin D (Vitamin D3) 50,000 unit QMONTH PO ; Start 01/07/18 at 09:00 Docusate Sodium (Colace) 100 mg PRN BID PRN PO CONSTIPATION; Start 12/08/17 at 22:30 Hydrocortisone Acetate (Anucort-Hc) 25 mg PRN DAILY PRN RC burning or blood in BM; Start 12/08/17 at 22:30 Insulin Aspart (NovoLOG) 10 units DAILYWBKFT SQ Last administered on 12/19/17at 08:36; Start 12/09/17 at 08:00 Insulin Aspart (NovoLOG) 15 units DAILYWSUP SQ Last administered on 12/19/17at 17 :18; Start 12/09/17 at 17:00 Insulin Aspart (NovoLOG) 25 units DAILYBFRLUN SQ Last administered on 12/19/17at 11:56; Start 12/09/17 at 11:30 Levothyroxine Sodium (Synthroid) 25 mcg DAILY06 PO Last administered on at 05:59; Start 12/09/17 at 06:00 Lisinopril (Prinivil) 10 mg DAILY PO Last administered on 12/19/17at 08:37; Start 12/09/17 at 09:00 Al Hydroxide/Mg Hydroxide (Mylanta Plus Xs) 15 ml PRN BFRMEALHC PRN PO DYSPEPSIA; Start 12/08/17 at 22:30 Magnesium Hydroxide (Milk Of Magnesia) 2,400 mg PRN QHS PRN PO CONSTIPATION; Start 12/08/17 at 22:30 Calamine/Phenol (Calmoseptine) 1 porsche PRN TID PRN TP SKIN PROTECTION; Start at 22:30 Multi-Ingredient Ointment (Analgesic Blanch) 1 porsche PRN QID PRN TP MUSCLE PAIN; Start 12/08/17 at 22:30 Nystatin (Nystop) 1 porsche PRN TID PRN TP RASH; Start 12/08/17 at 22:30 Triamcinolone Acetonide (Aristocort) 1 porsche PRN TID PRN TP RASH; Start 12/08/17 at 22:30 Fenofibrate (Tricor) 48 mg QHS PO Last administered on 12/19/17at 19:47; Start at 21:00 Insulin Glargine (Lantus) 45 units QHS SQ ; Start 12/09/17 at 21:00; Status Cancel Lactobacillus Rhamnosus (Culturelle) 1 cap BID PO Last administered on at 19:46; Start 12/09/17 at 09:00 Multivitamins/ Calcium (Thera-M Plus) 1 tab DAILYWSUP PO Last administered on at 16:43; Start 12/09/17 at 17:00 Pantoprazole Sodium (Protonix) 40 mg DAILYAC PO Last administered on 12/19/17at 08:36; Start 12/09/17 at 07:30 Non-Formulary Medication 90 mg TIDWMEALS PO ; Start 12/09/17 at 08:00; Stop at 08:00; Status DC Insulin Detemir (Levemir) 45 units QHS SQ Last administered on 12/19/17at 19:49; Start 12/09/17 at 21:00 Olanzapine (ZyPREXA ZYDIS) 2.5 mg PRN Q2HR PRN PO PSYCHOSIS; Start 12/08/17 at 23:30 Cephalexin HCl (Keflex) 500 mg BID PO Last administered on 12/18/17at 08:36; Start 12/09/17 at 09:00; Stop 12/18/17 at 13:19; Status DC Fluvoxamine Maleate (Luvox) 25 mg DAILY PO Last administered on 12/12/17at 08:30 ; Start 12/10/17 at 09:00; Stop 12/12/17 at 18:40; Status DC Fluvoxamine Maleate (Luvox) 50 mg DAILY PO ; Start 12/13/17 at 09:00; Stop at 09:00; Status DC Fluvoxamine Maleate (Luvox) 75 mg DAILY PO ; Start 12/16/17 at 09:01; Stop at 09:01; Status DC Quetiapine Fumarate (SEROquel) 37.5 mg TID PO Last administered on 12/19/17at 13: 34; Start 12/12/17 at 21:00; Stop 12/19/17 at 19:12; Status DC Fenofibrate (Tricor) 48 mg STK-MED ONCE PO ; Start 12/09/17 at 09:00; Stop at 09:02; Status DC Multivitamins/ Calcium (Thera-M Plus) 1 tab STK-MED ONCE .ROUTE ; Start at 09:00; Stop 12/13/17 at 09:02; Status DC Fenofibrate (Tricor) 48 mg STK-MED ONCE PO ; Start 12/10/17 at 09:00; Stop at 09:03; Status DC Multivitamins/ Calcium (Thera-M Plus) 1 tab STK-MED ONCE .ROUTE ; Start at 09:00; Stop 12/13/17 at 09:03; Status DC Fenofibrate (Tricor) 48 mg STK-MED ONCE PO ; Start 12/11/17 at 09:00; Stop at 09:03; Status DC Multivitamins/ Calcium (Thera-M Plus) 1 tab STK-MED ONCE .ROUTE ; Start at 09:00; Stop 12/13/17 at 09:03; Status DC Fenofibrate (Tricor) 48 mg STK-MED ONCE PO ; Start 12/12/17 at 09:00; Stop at 09:04; Status DC Multivitamins/ Calcium (Thera-M Plus) 1 tab STK-MED ONCE .ROUTE ; Start at 09:00; Stop 12/13/17 at 09:04; Status DC Fluvoxamine Maleate (Luvox) 50 mg QHS PO Last administered on 12/15/17 19:40; Start 12/13/17 at 21:00; Stop 12/15/17 at 21:01; Status DC Fluvoxamine Maleate (Luvox) 75 mg QHS PO Last administered on 12/19/17 19:46; Start 12/16/17 at 21:00 Nystatin (Nystop) 1 porsche BID TP Last administered on 12/19/17 19:46; Start at 09:00 Quetiapine Fumarate (SEROquel) 37.5 mg DAILY@1400 PO ; Start 12/20/17 at 14:00 Quetiapine Fumarate (SEROquel) 25 mg BID PO Last administered on 3/7/18at 19:46 ; Start 12/19/17 at 21:00 Active Scripts Active Reported Triamcinolone Acetonide 15 Gm Cream..g. 1 Porsche TP PRN TID PRN Nystop (Nystatin) 60 Gm Powder 1 Porsche TP PRN TID PRN Novolog Flexpen (Insulin Aspart) 100 Unit/1 Ml Insuln.pen 25 Unit SQ DAILYBFRLUN Novolog Flexpen (Insulin Aspart) 100 Unit/1 Ml Insuln.pen 15 Unit SQ DAILYWSUP Novolog Flexpen (Insulin Aspart) 100 Unit/1 Ml Insuln.pen 10 Unit SQ DAILYWBKFT [IBgard pepermint oil] 90mg Cap 90 Mg PO TIDWMEALS Omeprazole 20 Mg Capsule.dr 20 Mg PO DAILY06 Seroquel (Quetiapine Fumarate) 25 Mg Tablet 25 Mg PO PRN Q2HR PRN Quetiapine Fumarate 25 Mg Tablet 25 Mg PO TID Trazodone Hcl 50 Mg Tablet 50 Mg PO TIDWMEALS Clonazepam 0.5 Mg Tablet 0.5 Mg PO BID@1200,2100 Calmoseptine Ointment (Menthol/Zinc Oxide) 71 Gm Oint...g. 1 Porsche TP PRN PRN Anusol-Hc (Hydrocortisone Acetate) 25 Mg Supp.rect 25 Mg RC PRN DAILY PRN Probiotic (Lactobacillus Acidophilus) 1 Each Capsule 1 Cap PO BID Lantus (Insulin Glargine,Hum.rec.anlog) 100 Unit/1 Ml Vial 45 Units SQ QHS Analgesic Blanch (Methyl Salicylate/Menthol) 29 Gm Oint...g. 1 Porsche TP PRN QID PRN Mag-Al Plus Xs Suspension (Mag Hydrox/Al Hydrox/Simeth) 30 Ml Oral.susp 15 Ml PO PRN BFRMEALHC PRN Levothyroxine Sodium 25 Mcg Tablet 25 Mcg PO DAILY06 Melatonin 5 Mg Tablet 5 Mg PO PRN QHS PRN Colace (Docusate Sodium) 100 Mg Capsule 100 Mg PO PRN BID PRN Hold for Loose stools Milk Of Magnesia (Magnesium Hydroxide) 400 Mg/5 Ml Oral.susp 2,400 Mg PO PRN QHS PRN Vitamin D3 (Cholecalciferol (Vitamin D3)) 50,000 Unit Capsule 50,000 Unit PO QMONTH Administer on the of every Month Zestril (Lisinopril) 10 Mg Tablet 10 Mg PO DAILY Hold for SBP less than 100. After a held dose, reassess in 2 hours. If SBP is above threshold admminister dose as ordered. If SBP is below threshold, contact provider for additional instructions Oyster Shell Calcium (Calcium Carbonate) 500 Mg Tablet 1,000 Mg PO DAILY Multivitamins (Multivitamin) 1 Each Tablet 1 Tab PO DAILYWSUP Fenofibrate 54 Mg Tablet 54 Mg PO QHS I have reviewed the current psychotropics carefully including drug interactions. Risk benefit ratio favors no change other than as noted in my dictated progress note. Diagnosis: Problems: (1) Anxiety (2) Dementia (3) Dementia (4) Impulse control disorder (5) Obsessive compulsive disorder (6) Medical clearance for psychiatric admission (7) Mood disorder (8) IMPULSE DISORDER, UNSPECIFIED (9) Impulse control disorder (10) DMII (diabetes mellitus, type 2) (11) Intellectual disability IDA LAINEZ MD Dec 19, 2017 19:51
[2017-12-20] MEDS: LEVOTHYROXINE 25 MCG TABLET. PO SCH (06:05)
[2017-12-20 06:07] VITALS: BP 115/72
[2017-12-20] MEDS: LACTOBACILLUS RHAMNOSUS GG 1 CAPSULE. PO SCH ×2 (08:37→20:32)
[2017-12-20] MEDS: LISINOPRIL 10 MG TABLET PO SCH (08:38)
[2017-12-20] MEDS: traZODone 50 MG TABLET. PO SCH ×3 (08:38→17:27)
[2017-12-20] MEDS: QUEtiapine 25 MG TABLET. PO SCH ×3 (08:38→20:32)
[2017-12-20] MEDS: PANTOPRAZOLE 40 MG TABLET. PO SCH (08:39)
[2017-12-20] MEDS: NYSTATIN TOPICAL POWDER 15GM BOTTLE. TP SCH ×2 (08:39→20:31)
[2017-12-20] MEDS: CALCIUM CARBONATE 500 MG TABLET PO SCH (08:39)
[2017-12-20] MEDS: INSULIN ASPART 300 UNITS/3 ML INSULN.PEN SQ SCH ×3 (08:42→17:29)
[2017-12-20] MEDS: clonazePAM 0.5 MG TABLET PO SCH ×2 (12:28→20:33)
[2017-12-20 16:13] VITALS: BP 123/82
[2017-12-20] MEDS: MULTIVITAMIN with MINERAL TABLET. PO SCH (17:25)
--- NOTE | 2017-12-20 19:48 | PDOC ---
Exam Note: Marcelo Note: Please also refer to the separate dictated note~for this date of service dictated separately.~Patient seen individually. Discussed the patient with Nursing staff reviewed the chart.~Reviewed interim history and current functioning. Reviewed vital signs,~Labs/ Radiology~and current medications noted below. Continue current treatment with the changes noted in the dictated addendum note Assessment: Vital Signs: Vital Signs Date Time Temp Pulse Resp B/P (MAP) Pulse Ox O2 Delivery O2 Flow Rate FiO2 12/20/17 16:13 97.2 89 18 123/82 (96) 93 12/15/17 16:34 Room Air 12/14/17 16:02 93.0 I&O Intake and Output 12/20/17 07:00 Intake Total 1200 ml Balance 1200 ml Intake Oral 1200 ml # Voids 1 # Bowel Movements 1 Labs: Laboratory Tests Test 12/20/17 07:10 12/20/17 11:38 12/20/17 16:29 12/20/17 18:59 Glucose (Fingerstick) 157 mg/dL (70-99) H 271 mg/dL (70-99) H 177 mg/dL (70-99) H 189 mg/dL (70-99) H Current Medications: Meds: Current Medications Clonazepam (KlonoPIN) 0.5 mg BID@1200,2100 PO Last administered on 12/20/17at 12: 28; Start 12/08/17 at 22:00 Quetiapine Fumarate (SEROquel) 25 mg TID PO Last administered on 12/12/17at 14: 23; Start 12/08/17 at 22:00; Stop 12/12/17 at 18:40; Status DC Quetiapine Fumarate (SEROquel) 25 mg PRN Q2HR PRN PO ANXIETY / AGITATION; Start 12/08/17 at 21:45 Trazodone HCl (Desyrel) 50 mg TIDWMEALS PO Last administered on 12/20/17at 17:27 ; Start 12/09/17 at 08:00 Melatonin 6 mg PRN QHS PRN PO INSOMNIA Last administered on 12/09/17at 20:15; Start 12/08/17 at 21:45 Calcium Carbonate/ Glycine (Oscal) 1,000 mg DAILYWBKFT PO Last administered on 12/20/17at 08:39; Start 12/09/17 at 08:00 Vitamin D (Vitamin D3) 50,000 unit QMONTH PO ; Start 01/07/18 at 09:00 Docusate Sodium (Colace) 100 mg PRN BID PRN PO CONSTIPATION; Start 12/08/17 at 22:30 Hydrocortisone Acetate (Anucort-Hc) 25 mg PRN DAILY PRN RC burning or blood in BM; Start 12/08/17 at 22:30 Insulin Aspart (NovoLOG) 10 units DAILYWBKFT SQ Last administered on 12/20/17at 08:42; Start 12/09/17 at 08:00 Insulin Aspart (NovoLOG) 15 units DAILYWSUP SQ Last administered on 12/20/17at 17 :29; Start 12/09/17 at 17:00 Insulin Aspart (NovoLOG) 25 units DAILYBFRLUN SQ Last administered on 12/20/17at 12:32; Start 12/09/17 at 11:30 Levothyroxine Sodium (Synthroid) 25 mcg DAILY06 PO Last administered on at 06:05; Start 12/09/17 at 06:00 Lisinopril (Prinivil) 10 mg DAILY PO Last administered on 12/20/17at 08:38; Start 12/09/17 at 09:00 Al Hydroxide/Mg Hydroxide (Mylanta Plus Xs) 15 ml PRN BFRMEALHC PRN PO DYSPEPSIA; Start 12/08/17 at 22:30 Magnesium Hydroxide (Milk Of Magnesia) 2,400 mg PRN QHS PRN PO CONSTIPATION; Start 12/08/17 at 22:30 Calamine/Phenol (Calmoseptine) 1 porsche PRN TID PRN TP SKIN PROTECTION; Start at 22:30 Multi-Ingredient Ointment (Analgesic [place]) 1 porsche PRN QID PRN TP MUSCLE PAIN; Start 12/08/17 at 22:30 Nystatin (Nystop) 1 porsche PRN TID PRN TP RASH; Start 12/08/17 at 22:30 Triamcinolone Acetonide (Aristocort) 1 porsche PRN TID PRN TP RASH; Start 12/08/17 at 22:30 Fenofibrate (Tricor) 48 mg QHS PO Last administered on 12/19/17at 19:47; Start at 21:00 Insulin Glargine (Lantus) 45 units QHS SQ ; Start 12/09/17 at 21:00; Status Cancel Lactobacillus Rhamnosus (Culturelle) 1 cap BID PO Last administered on at 08:37; Start 12/09/17 at 09:00 Multivitamins/ Calcium (Thera-M Plus) 1 tab DAILYWSUP PO Last administered on at 17:25; Start 12/09/17 at 17:00 Pantoprazole Sodium (Protonix) 40 mg DAILYAC PO Last administered on 12/20/17at 08:39; Start 12/09/17 at 07:30 Non-Formulary Medication 90 mg TIDWMEALS PO ; Start 12/09/17 at 08:00; Stop at 08:00; Status DC Insulin Detemir (Levemir) 45 units QHS SQ Last administered on 12/19/17at 19:49; Start 12/09/17 at 21:00 Olanzapine (ZyPREXA ZYDIS) 2.5 mg PRN Q2HR PRN PO PSYCHOSIS; Start 12/08/17 at 23:30 Cephalexin HCl (Keflex) 500 mg BID PO Last administered on 12/18/17at 08:36; Start 12/09/17 at 09:00; Stop 12/18/17 at 13:19; Status DC Fluvoxamine Maleate (Luvox) 25 mg DAILY PO Last administered on 12/12/17at 08:30 ; Start 12/10/17 at 09:00; Stop 12/12/17 at 18:40; Status DC Fluvoxamine Maleate (Luvox) 50 mg DAILY PO ; Start 12/13/17 at 09:00; Stop at 09:00; Status DC Fluvoxamine Maleate (Luvox) 75 mg DAILY PO ; Start 12/16/17 at 09:01; Stop at 09:01; Status DC Quetiapine Fumarate (SEROquel) 37.5 mg TID PO Last administered on 12/19/17at 13: 34; Start 12/12/17 at 21:00; Stop 12/19/17 at 19:12; Status DC Fenofibrate (Tricor) 48 mg STK-MED ONCE PO ; Start 12/09/17 at 09:00; Stop at 09:02; Status DC Multivitamins/ Calcium (Thera-M Plus) 1 tab STK-MED ONCE .ROUTE ; Start at 09:00; Stop 12/13/17 at 09:02; Status DC Fenofibrate (Tricor) 48 mg STK-MED ONCE PO ; Start 12/10/17 at 09:00; Stop at 09:03; Status DC Multivitamins/ Calcium (Thera-M Plus) 1 tab STK-MED ONCE .ROUTE ; Start at 09:00; Stop 12/13/17 at 09:03; Status DC Fenofibrate (Tricor) 48 mg STK-MED ONCE PO ; Start 12/11/17 at 09:00; Stop at 09:03; Status DC Multivitamins/ Calcium (Thera-M Plus) 1 tab STK-MED ONCE .ROUTE ; Start at 09:00; Stop 12/13/17 at 09:03; Status DC Fenofibrate (Tricor) 48 mg STK-MED ONCE PO ; Start 12/12/17 at 09:00; Stop at 09:04; Status DC Multivitamins/ Calcium (Thera-M Plus) 1 tab STK-MED ONCE .ROUTE ; Start at 09:00; Stop 12/13/17 at 09:04; Status DC Fluvoxamine Maleate (Luvox) 50 mg QHS PO Last administered on 12/15/17at 19:40; Start 12/13/17 at 21:00; Stop 12/15/17 at 21:01; Status DC Fluvoxamine Maleate (Luvox) 75 mg QHS PO Last administered on 12/19/17at 19:46; Start 12/16/17 at 21:00; Stop 12/20/17 at 11:22; Status DC Nystatin (Nystop) 1 porsche BID TP Last administered on 12/20/17at 08:39; Start at 09:00 Quetiapine Fumarate (SEROquel) 37.5 mg DAILY@1400 PO Last administered on at 14:00; Start 12/20/17 at 14:00 Quetiapine Fumarate (SEROquel) 25 mg BID PO Last administered on 12/20/17at 08:38 ; Start 12/19/17 at 21:00 Fluvoxamine Maleate (Luvox) 100 mg QHS PO ; Start 12/20/17 at 21:00 Active Scripts Active Reported Triamcinolone Acetonide 15 Gm Cream..g. 1 Porsche TP PRN TID PRN Nystop (Nystatin) 60 Gm Powder 1 Porsche TP PRN TID PRN Novolog Flexpen (Insulin Aspart) 100 Unit/1 Ml Insuln.pen 25 Unit SQ DAILYBFRLUN Novolog Flexpen (Insulin Aspart) 100 Unit/1 Ml Insuln.pen 15 Unit SQ DAILYWSUP Novolog Flexpen (Insulin Aspart) 100 Unit/1 Ml Insuln.pen 10 Unit SQ DAILYWBKFT [IBgard pepermint oil] 90mg Cap 90 Mg PO TIDWMEALS Omeprazole 20 Mg Capsule.dr 20 Mg PO DAILY06 Seroquel (Quetiapine Fumarate) 25 Mg Tablet 25 Mg PO PRN Q2HR PRN Quetiapine Fumarate 25 Mg Tablet 25 Mg PO TID Trazodone Hcl 50 Mg Tablet 50 Mg PO TIDWMEALS Clonazepam 0.5 Mg Tablet 0.5 Mg PO BID@1200,2100 Calmoseptine Ointment (Menthol/Zinc Oxide) 71 Gm Oint...g. 1 Porsche TP PRN PRN Anusol-Hc (Hydrocortisone Acetate) 25 Mg Supp.rect 25 Mg RC PRN DAILY PRN Probiotic (Lactobacillus Acidophilus) 1 Each Capsule 1 Cap PO BID Lantus (Insulin Glargine,Hum.rec.anlog) 100 Unit/1 Ml Vial 45 Units SQ QHS Analgesic [place] (Methyl Salicylate/Menthol) 29 Gm Oint...g. 1 Porsche TP PRN QID PRN Mag-Al Plus Xs Suspension (Mag Hydrox/Al Hydrox/Simeth) 30 Ml Oral.susp 15 Ml PO PRN BFRMEALHC PRN Levothyroxine Sodium 25 Mcg Tablet 25 Mcg PO DAILY06 Melatonin 5 Mg Tablet 5 Mg PO PRN QHS PRN Colace (Docusate Sodium) 100 Mg Capsule 100 Mg PO PRN BID PRN Hold for Loose stools Milk Of Magnesia (Magnesium Hydroxide) 400 Mg/5 Ml Oral.susp 2,400 Mg PO PRN QHS PRN Vitamin D3 (Cholecalciferol (Vitamin D3)) 50,000 Unit Capsule 50,000 Unit PO QMONTH Administer on the 15th of every Month Zestril (Lisinopril) 10 Mg Tablet 10 Mg PO DAILY Hold for SBP less than 100. After a held dose, reassess in 2 hours. If SBP is above threshold admminister dose as ordered. If SBP is below threshold, contact provider for additional instructions Oyster Shell Calcium (Calcium Carbonate) 500 Mg Tablet 1,000 Mg PO DAILY Multivitamins (Multivitamin) 1 Each Tablet 1 Tab PO DAILYWSUP Fenofibrate 54 Mg Tablet 54 Mg PO QHS I have reviewed the current psychotropics carefully including drug interactions. Risk benefit ratio favors no change other than as noted in my dictated progress note. Diagnosis: Problems: (1) Anxiety (2) Dementia (3) Dementia (4) Impulse control disorder (5) Obsessive compulsive disorder (6) Medical clearance for psychiatric admission (7) Mood disorder (8) IMPULSE DISORDER, UNSPECIFIED (9) Impulse control disorder (10) DMII (diabetes mellitus, type 2) (11) Intellectual disability IDA LAINEZ MD Dec 20, 2017 19:48
[2017-12-20] MEDS: FENOFIBRATE NANOCRYSTALLIZED 48 MG TABLET PO SCH (20:31)
[2017-12-20] MEDS: INSULIN DETEMIR 300 UNITS/3 ML INSULN.PEN. SQ SCH (20:35)
[2017-12-21] MEDS: LEVOTHYROXINE 25 MCG TABLET. PO SCH (05:59)
[2017-12-21 06:05] VITALS: BP 116/55
[2017-12-21] MEDS: traZODone 50 MG TABLET. PO SCH ×3 (09:04→17:46)
[2017-12-21] MEDS: LISINOPRIL 10 MG TABLET PO SCH (09:04)
[2017-12-21] MEDS: PANTOPRAZOLE 40 MG TABLET. PO SCH (09:04)
[2017-12-21] MEDS: QUEtiapine 25 MG TABLET. PO SCH ×3 (09:04→20:07)
[2017-12-21] MEDS: CALCIUM CARBONATE 500 MG TABLET PO SCH (09:04)
[2017-12-21] MEDS: LACTOBACILLUS RHAMNOSUS GG 1 CAPSULE. PO SCH ×2 (09:04→20:07)
[2017-12-21] MEDS: NYSTATIN TOPICAL POWDER 15GM BOTTLE. TP SCH ×2 (09:06→20:06)
[2017-12-21] MEDS: INSULIN ASPART 300 UNITS/3 ML INSULN.PEN SQ SCH ×3 (09:07→17:47)
[2017-12-21] MEDS: clonazePAM 0.5 MG TABLET PO SCH ×2 (13:06→20:06)
[2017-12-21 16:24] VITALS: BP 111/67
[2017-12-21] MEDS: MULTIVITAMIN with MINERAL TABLET. PO SCH (17:46)
--- NOTE | 2017-12-21 19:52 | PDOC ---
Exam Note: Marcelo Note: Please also refer to the separate dictated note~for this date of service dictated separately.~Patient seen individually. Discussed the patient with Nursing staff reviewed the chart.~Reviewed interim history and current functioning. Reviewed vital signs,~Labs/ Radiology~and current medications noted below. Continue current treatment with the changes noted in the dictated addendum note Assessment: Vital Signs: Vital Signs Date Time Temp Pulse Resp B/P (MAP) Pulse Ox O2 Delivery O2 Flow Rate FiO2 12/21/17 16:24 96.9 78 20 111/67 (82) 96 12/15/17 16:34 Room Air I&O Intake and Output 12/21/17 07:00 Intake Total 1800 ml Balance 1800 ml Intake Oral 1800 ml # Voids 2 # Bowel Movements 1 Labs: Laboratory Tests Test 12/21/17 07:12 12/21/17 12:12 12/21/17 17:07 12/21/17 19:08 Glucose (Fingerstick) 265 mg/dL (70-99) H 233 mg/dL (70-99) H 191 mg/dL (70-99) H 304 mg/dL (70-99) H Current Medications: Meds: Current Medications Clonazepam (KlonoPIN) 0.5 mg BID@1200,2100 PO Last administered on 12/21/17at 13: 06; Start 12/08/17 at 22:00 Quetiapine Fumarate (SEROquel) 25 mg TID PO Last administered on 12/12/17at 14: 23; Start 12/08/17 at 22:00; Stop 12/12/17 at 18:40; Status DC Quetiapine Fumarate (SEROquel) 25 mg PRN Q2HR PRN PO ANXIETY / AGITATION; Start 12/08/17 at 21:45 Trazodone HCl (Desyrel) 50 mg TIDWMEALS PO Last administered on 12/21/17at 17:46 ; Start 12/09/17 at 08:00 Melatonin 6 mg PRN QHS PRN PO INSOMNIA Last administered on 12/09/17at 20:15; Start 12/08/17 at 21:45 Calcium Carbonate/ Glycine (Oscal) 1,000 mg DAILYWBKFT PO Last administered on 12/21/17at 09:04; Start 12/09/17 at 08:00 Vitamin D (Vitamin D3) 50,000 unit QMONTH PO ; Start 01/07/18 at 09:00 Docusate Sodium (Colace) 100 mg PRN BID PRN PO CONSTIPATION; Start 12/08/17 at 22:30 Hydrocortisone Acetate (Anucort-Hc) 25 mg PRN DAILY PRN RC burning or blood in BM; Start 12/08/17 at 22:30 Insulin Aspart (NovoLOG) 10 units DAILYWBKFT SQ Last administered on 12/21/17at 09:07; Start 12/09/17 at 08:00 Insulin Aspart (NovoLOG) 15 units DAILYWSUP SQ Last administered on 12/21/17at 17 :47; Start 12/09/17 at 17:00 Insulin Aspart (NovoLOG) 25 units DAILYBFRLUN SQ Last administered on 12/21/17at 13:08; Start 12/09/17 at 11:30 Levothyroxine Sodium (Synthroid) 25 mcg DAILY06 PO Last administered on at 05:59; Start 12/09/17 at 06:00 Lisinopril (Prinivil) 10 mg DAILY PO Last administered on 12/21/17at 09:04; Start 12/09/17 at 09:00 Al Hydroxide/Mg Hydroxide (Mylanta Plus Xs) 15 ml PRN BFRMEALHC PRN PO DYSPEPSIA; Start 12/08/17 at 22:30 Magnesium Hydroxide (Milk Of Magnesia) 2,400 mg PRN QHS PRN PO CONSTIPATION; Start 12/08/17 at 22:30 Calamine/Phenol (Calmoseptine) 1 porsche PRN TID PRN TP SKIN PROTECTION; Start at 22:30 Multi-Ingredient Ointment (Analgesic [place]) 1 porsche PRN QID PRN TP MUSCLE PAIN; Start 12/08/17 at 22:30 Nystatin (Nystop) 1 porsche PRN TID PRN TP RASH; Start 12/08/17 at 22:30 Triamcinolone Acetonide (Aristocort) 1 porsche PRN TID PRN TP RASH; Start 12/08/17 at 22:30 Fenofibrate (Tricor) 48 mg QHS PO Last administered on 12/20/17at 20:31; Start at 21:00 Insulin Glargine (Lantus) 45 units QHS SQ ; Start 12/09/17 at 21:00; Status Cancel Lactobacillus Rhamnosus (Culturelle) 1 cap BID PO Last administered on at 09:04; Start 12/09/17 at 09:00 Multivitamins/ Calcium (Thera-M Plus) 1 tab DAILYWSUP PO Last administered on at 17:46; Start 12/09/17 at 17:00 Pantoprazole Sodium (Protonix) 40 mg DAILYAC PO Last administered on 12/21/17at 09:04; Start 12/09/17 at 07:30 Non-Formulary Medication 90 mg TIDWMEALS PO ; Start 12/09/17 at 08:00; Stop at 08:00; Status DC Insulin Detemir (Levemir) 45 units QHS SQ Last administered on 12/20/17at 20:35; Start 12/09/17 at 21:00 Olanzapine (ZyPREXA ZYDIS) 2.5 mg PRN Q2HR PRN PO PSYCHOSIS; Start 12/08/17 at 23:30 Cephalexin HCl (Keflex) 500 mg BID PO Last administered on 12/18/17at 08:36; Start 12/09/17 at 09:00; Stop 12/18/17 at 13:19; Status DC Fluvoxamine Maleate (Luvox) 25 mg DAILY PO Last administered on 12/12/17at 08:30 ; Start 12/10/17 at 09:00; Stop 12/12/17 at 18:40; Status DC Fluvoxamine Maleate (Luvox) 50 mg DAILY PO ; Start 12/13/17 at 09:00; Stop at 09:00; Status DC Fluvoxamine Maleate (Luvox) 75 mg DAILY PO ; Start 12/16/17 at 09:01; Stop at 09:01; Status DC Quetiapine Fumarate (SEROquel) 37.5 mg TID PO Last administered on 12/19/17at 13: 34; Start 12/12/17 at 21:00; Stop 12/19/17 at 19:12; Status DC Fenofibrate (Tricor) 48 mg STK-MED ONCE PO ; Start 12/09/17 at 09:00; Stop at 09:02; Status DC Multivitamins/ Calcium (Thera-M Plus) 1 tab STK-MED ONCE .ROUTE ; Start at 09:00; Stop 12/13/17 at 09:02; Status DC Fenofibrate (Tricor) 48 mg STK-MED ONCE PO ; Start 12/10/17 at 09:00; Stop at 09:03; Status DC Multivitamins/ Calcium (Thera-M Plus) 1 tab STK-MED ONCE .ROUTE ; Start at 09:00; Stop 12/13/17 at 09:03; Status DC Fenofibrate (Tricor) 48 mg STK-MED ONCE PO ; Start 12/11/17 at 09:00; Stop at 09:03; Status DC Multivitamins/ Calcium (Thera-M Plus) 1 tab STK-MED ONCE .ROUTE ; Start at 09:00; Stop 12/13/17 at 09:03; Status DC Fenofibrate (Tricor) 48 mg STK-MED ONCE PO ; Start 12/12/17 at 09:00; Stop at 09:04; Status DC Multivitamins/ Calcium (Thera-M Plus) 1 tab STK-MED ONCE .ROUTE ; Start at 09:00; Stop 12/13/17 at 09:04; Status DC Fluvoxamine Maleate (Luvox) 50 mg QHS PO Last administered on 12/15/17at 19:40; Start 12/13/17 at 21:00; Stop 12/15/17 at 21:01; Status DC Fluvoxamine Maleate (Luvox) 75 mg QHS PO Last administered on 12/19/17at 19:46; Start 12/16/17 at 21:00; Stop 12/20/17 at 11:22; Status DC Nystatin (Nystop) 1 porsche BID TP Last administered on 12/21/17at 09:06; Start at 09:00 Quetiapine Fumarate (SEROquel) 37.5 mg DAILY@1400 PO Last administered on at 13:07; Start 12/20/17 at 14:00 Quetiapine Fumarate (SEROquel) 25 mg BID PO Last administered on 12/21/17at 09:04 ; Start 12/19/17 at 21:00 Fluvoxamine Maleate (Luvox) 100 mg QHS PO Last administered on 12/20/17at 20:33; Start 12/20/17 at 21:00 Active Scripts Active Reported Triamcinolone Acetonide 15 Gm Cream..g. 1 Porsche TP PRN TID PRN Nystop (Nystatin) 60 Gm Powder 1 Porsche TP PRN TID PRN Novolog Flexpen (Insulin Aspart) 100 Unit/1 Ml Insuln.pen 25 Unit SQ DAILYBFRLUN Novolog Flexpen (Insulin Aspart) 100 Unit/1 Ml Insuln.pen 15 Unit SQ DAILYWSUP Novolog Flexpen (Insulin Aspart) 100 Unit/1 Ml Insuln.pen 10 Unit SQ DAILYWBKFT [IBgard pepermint oil] 90mg Cap 90 Mg PO TIDWMEALS Omeprazole 20 Mg Capsule.dr 20 Mg PO DAILY06 Seroquel (Quetiapine Fumarate) 25 Mg Tablet 25 Mg PO PRN Q2HR PRN Quetiapine Fumarate 25 Mg Tablet 25 Mg PO TID Trazodone Hcl 50 Mg Tablet 50 Mg PO TIDWMEALS Clonazepam 0.5 Mg Tablet 0.5 Mg PO BID@1200,2100 Calmoseptine Ointment (Menthol/Zinc Oxide) 71 Gm Oint...g. 1 Porsche TP PRN PRN Anusol-Hc (Hydrocortisone Acetate) 25 Mg Supp.rect 25 Mg RC PRN DAILY PRN Probiotic (Lactobacillus Acidophilus) 1 Each Capsule 1 Cap PO BID Lantus (Insulin Glargine,Hum.rec.anlog) 100 Unit/1 Ml Vial 45 Units SQ QHS Analgesic [place] (Methyl Salicylate/Menthol) 29 Gm Oint...g. 1 Porsche TP PRN QID PRN Mag-Al Plus Xs Suspension (Mag Hydrox/Al Hydrox/Simeth) 30 Ml Oral.susp 15 Ml PO PRN BFRMEALHC PRN Levothyroxine Sodium 25 Mcg Tablet 25 Mcg PO DAILY06 Melatonin 5 Mg Tablet 5 Mg PO PRN QHS PRN Colace (Docusate Sodium) 100 Mg Capsule 100 Mg PO PRN BID PRN Hold for Loose stools Milk Of Magnesia (Magnesium Hydroxide) 400 Mg/5 Ml Oral.susp 2,400 Mg PO PRN QHS PRN Vitamin D3 (Cholecalciferol (Vitamin D3)) 50,000 Unit Capsule 50,000 Unit PO QMONTH Administer on the 15th of every Month Zestril (Lisinopril) 10 Mg Tablet 10 Mg PO DAILY Hold for SBP less than 100. After a held dose, reassess in 2 hours. If SBP is above threshold admminister dose as ordered. If SBP is below threshold, contact provider for additional instructions Oyster Shell Calcium (Calcium Carbonate) 500 Mg Tablet 1,000 Mg PO DAILY Multivitamins (Multivitamin) 1 Each Tablet 1 Tab PO DAILYWSUP Fenofibrate 54 Mg Tablet 54 Mg PO QHS I have reviewed the current psychotropics carefully including drug interactions. Risk benefit ratio favors no change other than as noted in my dictated progress note. Diagnosis: Problems: (1) Anxiety (2) Dementia (3) Dementia (4) Impulse control disorder (5) Obsessive compulsive disorder (6) Medical clearance for psychiatric admission (7) Mood disorder (8) IMPULSE DISORDER, UNSPECIFIED (9) Impulse control disorder (10) DMII (diabetes mellitus, type 2) (11) Intellectual disability IDA LAINEZ MD Dec 21, 2017 19:52
--- NOTE | 2017-12-21 19:59 | PN ---
DATE: 12/19/2017 This is a late entry, 12/19/2017, covers the elements not covered in my initial note, 12/19/2017. SUBJECTIVE: I met with the patient evening of 12/19/2017. The patient slept 5-1/2 hours previous evening, remains somewhat obsessive, repetitive, and I met with her several times in the evening because she had followed me around, was standing outside the nursing station, but a little less obsessive than before, little less persistent regarding discharge plans. I had a message to call the patient's sister, Ricky on a conference call with the patient's brother, Edmar, who are her "co-DPOAs. Lengthy discussion and family would like a reduction of Seroquel given the risk/benefit ratio and potential side effects and we can to drop it down from 37.5 mg 3 times a day to 25 mg twice a day, 37.5 mg once a day. REVIEW OF SYSTEMS: Ambulation with walker. No CV, , pulmonary, eye system symptoms on review. MENTAL STATUS EXAM: Reasonably oriented. Speech coherent, rapid, persistent repetitive, somewhat obsessive in her thought processes. Abstraction fair, computation impaired, language function intact, attention span short. Mood and affect, anxious, labile at times, but showing some gradual improvement. LABORATORY DATA: Reviewed. IMPRESSION: Bipolar 1 disorder, mixed borderline intellectual functioning obsessive-compulsive disorder. PLAN: Reduce the Seroquel as above. Continue rest of the psychotropics including Luvox and we may need to increase the latter in a day or two up to 100 mg a day. Continue rest unchanged. May consider reduction of trazodone as well, which is scheduled 50 mg at three times a day. MAN Stuart LAINEZ MD DR: YO/bakari JOB#: [id number] / [id number]
[2017-12-21] MEDS: FENOFIBRATE NANOCRYSTALLIZED 48 MG TABLET PO SCH (20:06)
[2017-12-21] MEDS: INSULIN DETEMIR 300 UNITS/3 ML INSULN.PEN. SQ SCH (20:09)
--- NOTE | 2017-12-21 23:23 | PN ---
DATE: 12/21/2017 PSYCHIATRIC PROGRESS NOTE This is a late entry for 12/20/2017, covers elements not covered in my initial note of 12/20/2017. SUBJECTIVE: The patient was staffed at a treatment team meeting with the entire team the morning of 12/20/2017 and seen individually at some length repeatedly as she would follow me around the unit the evening of 12/20/2017. Sleeping about 5-3/4 hours, yelling at peers previous evening, still obsessive, anxious, redirects. We have reduced the Seroquel as requested by the family. REVIEW OF SYSTEMS: Ambulation impaired with walker. No CV, , pulmonary, eye, ENT system symptoms on review. She has some snorting movements of her nose. MENTAL STATUS EXAM: Oriented to herself and situation. Speech is coherent, persistent. Abstraction fair, computation impaired, less obsessive. Mood and affect, lability is improved. LABORATORY DATA: Reviewed. IMPRESSION: Bipolar 1 disorder, mixed; borderline intellectual functioning; and obsessive-compulsive disorder. PLAN: Increase Luvox to 100 mg p.o. at bedtime. Continue rest unchanged. Seroquel was reduced. MAN Stuart LAINEZ MD DR: YO/bakari JOB#: [id number] / [id number]
[2017-12-22] MEDS: LEVOTHYROXINE 25 MCG TABLET. PO SCH (06:08)
[2017-12-22 06:57] VITALS: BP 129/61
[2017-12-22] MEDS: PANTOPRAZOLE 40 MG TABLET. PO SCH (08:12)
[2017-12-22] MEDS: traZODone 50 MG TABLET. PO SCH ×3 (08:12→17:26)
[2017-12-22] MEDS: CALCIUM CARBONATE 500 MG TABLET PO SCH (08:12)
[2017-12-22] MEDS: NYSTATIN TOPICAL POWDER 15GM BOTTLE. TP SCH ×2 (08:13→20:15)
[2017-12-22] MEDS: LISINOPRIL 10 MG TABLET PO SCH (08:13)
[2017-12-22] MEDS: LACTOBACILLUS RHAMNOSUS GG 1 CAPSULE. PO SCH ×2 (08:13→20:14)
[2017-12-22] MEDS: INSULIN ASPART 300 UNITS/3 ML INSULN.PEN SQ SCH ×3 (08:13→17:25)
[2017-12-22] MEDS: QUEtiapine 25 MG TABLET. PO SCH ×3 (08:13→20:14)
[2017-12-22 08:28] LABS: BASO % 1 % (0-3); EOS # 0.4 x10^3/uL (0.0-0.7); EOS % 5 % (0-3); HEMATOCRIT 39.5 % (36.0-47.0); HEMOGLOBIN 13.5 g/dL (12.0-15.5); LYMPH # 2.2 x10^3/uL (1.0-4.8); LYMPH % 31 % (24-48); MEAN CORPUSCULAR HEMOGLOBIN 31 pg (25-35); MEAN CORPUSCULAR HGB CONC 34 g/dL (31-37); MEAN CORPUSCULAR VOLUME 90 fL (79-100); MONO # 0.5 x10^3/uL (0.0-1.1); MONO % 6 % (0-9); NEUT # 4.2 x10^3uL (1.8-7.7); NEUT % 57 % (31-73); PLATELET COUNT 128 x10^3/uL (140-400); RED BLOOD COUNT 4.38 x10^6/uL (3.50-5.40); RED CELL DISTRIBUTION WIDTH 14.3 % (11.5-14.5); WHITE BLOOD COUNT 7.4 x10^3/uL (4.0-11.0)
[2017-12-22 08:37] LABS: ALBUMIN 3.3 g/dL (3.4-5.0); ALBUMIN/GLOBULIN RATIO 0.9 (1.0-1.7); CALCIUM 8.4 mg/dL (8.5-10.1); CREATININE 0.9 mg/dL (0.6-1.0); GFR 61.7; POTASSIUM 4.2 mmol/L (3.5-5.1); TOTAL BILIRUBIN 0.5 mg/dL (0.2-1.0); TOTAL PROTEIN 6.9 g/dL (6.4-8.2)
[2017-12-22] MEDS: clonazePAM 0.5 MG TABLET PO SCH ×2 (12:14→20:14)
[2017-12-22] MEDS: MULTIVITAMIN with MINERAL TABLET. PO SCH (12:14)
[2017-12-22 16:16] VITALS: BP 152/60
[2017-12-22] MEDS: FENOFIBRATE NANOCRYSTALLIZED 48 MG TABLET PO SCH (20:14)
[2017-12-22] MEDS: INSULIN DETEMIR 300 UNITS/3 ML INSULN.PEN. SQ SCH (20:15)
--- NOTE | 2017-12-22 21:05 | PDOC ---
Exam Note: Marcelo Note: Please also refer to the separate dictated note~for this date of service dictated separately.~Patient seen individually. Discussed the patient with Nursing staff reviewed the chart.~Reviewed interim history and current functioning. Reviewed vital signs,~Labs/ Radiology~and current medications noted below. Continue current treatment with the changes noted in the dictated addendum note Assessment: Vital Signs: Vital Signs Date Time Temp Pulse Resp B/P (MAP) Pulse Ox O2 Delivery O2 Flow Rate FiO2 12/22/17 16:16 97.0 82 18 152/60 (90) 99 Room Air I&O Intake and Output 12/22/17 07:00 Intake Total 940 ml Balance 940 ml Intake Oral 940 ml Labs: Laboratory Tests Test 12/22/17 07:35 12/22/17 07:59 12/22/17 11:53 12/22/17 17:14 Glucose (Fingerstick) 221 mg/dL (70-99) H 337 mg/dL (70-99) H 135 mg/dL (70-99) H White Blood Count 7.4 x10^3/uL (4.0-11.0) Red Blood Count 4.38 x10^6/uL (3.50-5.40) Hemoglobin 13.5 g/dL (12.0-15.5) Hematocrit 39.5 % (36.0-47.0) Mean Corpuscular Volume 90 fL (79-100) Mean Corpuscular Hemoglobin 31 pg (25-35) Mean Corpuscular Hemoglobin Concent 34 g/dL (31-37) Red Cell Distribution Width 14.3 % (11.5-14.5) Platelet Count 128 x10^3/uL (140-400) L Neutrophils (%) (Auto) 57 % (31-73) Lymphocytes (%) (Auto) 31 % (24-48) Monocytes (%) (Auto) 6 % (0-9) Eosinophils (%) (Auto) 5 % (0-3) H Basophils (%) (Auto) 1 % (0-3) Neutrophils # (Auto) 4.2 x10^3uL (1.8-7.7) Lymphocytes # (Auto) 2.2 x10^3/uL (1.0-4.8) Monocytes # (Auto) 0.5 x10^3/uL (0.0-1.1) Eosinophils # (Auto) 0.4 x10^3/uL (0.0-0.7) Basophils # (Auto) 0.0 x10^3/uL (0.0-0.2) Sodium Level 138 mmol/L (136-145) Potassium Level 4.2 mmol/L (3.5-5.1) Chloride Level 100 mmol/L (98-107) Carbon Dioxide Level 28 mmol/L (21-32) Anion Gap 10 (6-14) Blood Urea Nitrogen 13 mg/dL (7-20) Creatinine 0.9 mg/dL (0.6-1.0) Estimated GFR (Cockcroft-Gault) 61.7 BUN/Creatinine Ratio 14 (6-20) Glucose Level 272 mg/dL (70-99) H Calcium Level 8.4 mg/dL (8.5-10.1) L Total Bilirubin 0.5 mg/dL (0.2-1.0) Aspartate Amino Transferase (AST) 32 U/L (15-37) Alanine Aminotransferase (ALT) 39 U/L (14-59) Alkaline Phosphatase 88 U/L (46-116) Total Protein 6.9 g/dL (6.4-8.2) Albumin 3.3 g/dL (3.4-5.0) L Albumin/Globulin Ratio 0.9 (1.0-1.7) L Test 12/22/17 19:15 Glucose (Fingerstick) 140 mg/dL (70-99) H Current Medications: Meds: Current Medications Clonazepam (KlonoPIN) 0.5 mg BID@1200,2100 PO Last administered on 12/22/17at 20 :14; Start 12/08/17 at 22:00 Quetiapine Fumarate (SEROquel) 25 mg TID PO Last administered on 12/12/17at 14: 23; Start 12/08/17 at 22:00; Stop 12/12/17 at 18:40; Status DC Quetiapine Fumarate (SEROquel) 25 mg PRN Q2HR PRN PO ANXIETY / AGITATION; Start 12/08/17 at 21:45 Trazodone HCl (Desyrel) 50 mg TIDWMEALS PO Last administered on 12/22/17at 17:26 ; Start 12/09/17 at 08:00 Melatonin 6 mg PRN QHS PRN PO INSOMNIA Last administered on 12/09/17at 20:15; Start 12/08/17 at 21:45 Calcium Carbonate/ Glycine (Oscal) 1,000 mg DAILYWBKFT PO Last administered on 12/22/17at 08:12; Start 12/09/17 at 08:00 Vitamin D (Vitamin D3) 50,000 unit QMONTH PO ; Start 01/07/18 at 09:00 Docusate Sodium (Colace) 100 mg PRN BID PRN PO CONSTIPATION; Start 12/08/17 at 22:30 Hydrocortisone Acetate (Anucort-Hc) 25 mg PRN DAILY PRN RC burning or blood in BM; Start 12/08/17 at 22:30 Insulin Aspart (NovoLOG) 10 units DAILYWBKFT SQ Last administered on 12/22/17at 08:13; Start 12/09/17 at 08:00 Insulin Aspart (NovoLOG) 15 units DAILYWSUP SQ Last administered on 12/22/17at 17:25; Start 12/09/17 at 17:00 Insulin Aspart (NovoLOG) 25 units DAILYBFRLUN SQ Last administered on at 12:13; Start 12/09/17 at 11:30 Levothyroxine Sodium (Synthroid) 25 mcg DAILY06 PO Last administered on at 06:08; Start 12/09/17 at 06:00 Lisinopril (Prinivil) 10 mg DAILY PO Last administered on 12/22/17at 08:13; Start 12/09/17 at 09:00 Al Hydroxide/Mg Hydroxide (Mylanta Plus Xs) 15 ml PRN BFRMEALHC PRN PO DYSPEPSIA; Start 12/08/17 at 22:30 Magnesium Hydroxide (Milk Of Magnesia) 2,400 mg PRN QHS PRN PO CONSTIPATION; Start 12/08/17 at 22:30 Calamine/Phenol (Calmoseptine) 1 porsche PRN TID PRN TP SKIN PROTECTION; Start at 22:30 Multi-Ingredient Ointment (Analgesic [place]) 1 porsche PRN QID PRN TP MUSCLE PAIN; Start 12/08/17 at 22:30 Nystatin (Nystop) 1 porsche PRN TID PRN TP RASH; Start 12/08/17 at 22:30 Triamcinolone Acetonide (Aristocort) 1 porsche PRN TID PRN TP RASH; Start 12/08/17 at 22:30 Fenofibrate (Tricor) 48 mg QHS PO Last administered on 12/22/17at 20:14; Start 12/09/17 at 21:00 Insulin Glargine (Lantus) 45 units QHS SQ ; Start 12/09/17 at 21:00; Status Cancel Lactobacillus Rhamnosus (Culturelle) 1 cap BID PO Last administered on at 20:14; Start 12/09/17 at 09:00 Multivitamins/ Calcium (Thera-M Plus) 1 tab DAILYWSUP PO Last administered on at 12:14; Start 12/09/17 at 17:00 Pantoprazole Sodium (Protonix) 40 mg DAILYAC PO Last administered on 12/22/17at 08:12; Start 12/09/17 at 07:30 Non-Formulary Medication 90 mg TIDWMEALS PO ; Start 12/09/17 at 08:00; Stop at 08:00; Status DC Insulin Detemir (Levemir) 45 units QHS SQ Last administered on 12/22/17at 20:15 ; Start 12/09/17 at 21:00 Olanzapine (ZyPREXA ZYDIS) 2.5 mg PRN Q2HR PRN PO PSYCHOSIS; Start 12/08/17 at 23:30 Cephalexin HCl (Keflex) 500 mg BID PO Last administered on 12/18/17at 08:36; Start 12/09/17 at 09:00; Stop 12/18/17 at 13:19; Status DC Fluvoxamine Maleate (Luvox) 25 mg DAILY PO Last administered on 12/12/17at 08:30 ; Start 12/10/17 at 09:00; Stop 12/12/17 at 18:40; Status DC Fluvoxamine Maleate (Luvox) 50 mg DAILY PO ; Start 12/13/17 at 09:00; Stop at 09:00; Status DC Fluvoxamine Maleate (Luvox) 75 mg DAILY PO ; Start 12/16/17 at 09:01; Stop at 09:01; Status DC Quetiapine Fumarate (SEROquel) 37.5 mg TID PO Last administered on 12/19/17at 13: 34; Start 12/12/17 at 21:00; Stop 12/19/17 at 19:12; Status DC Fenofibrate (Tricor) 48 mg STK-MED ONCE PO ; Start 12/09/17 at 09:00; Stop at 09:02; Status DC Multivitamins/ Calcium (Thera-M Plus) 1 tab STK-MED ONCE .ROUTE ; Start at 09:00; Stop 12/13/17 at 09:02; Status DC Fenofibrate (Tricor) 48 mg STK-MED ONCE PO ; Start 12/10/17 at 09:00; Stop at 09:03; Status DC Multivitamins/ Calcium (Thera-M Plus) 1 tab STK-MED ONCE .ROUTE ; Start at 09:00; Stop 12/13/17 at 09:03; Status DC Fenofibrate (Tricor) 48 mg STK-MED ONCE PO ; Start 12/11/17 at 09:00; Stop at 09:03; Status DC Multivitamins/ Calcium (Thera-M Plus) 1 tab STK-MED ONCE .ROUTE ; Start at 09:00; Stop 12/13/17 at 09:03; Status DC Fenofibrate (Tricor) 48 mg STK-MED ONCE PO ; Start 12/12/17 at 09:00; Stop at 09:04; Status DC Multivitamins/ Calcium (Thera-M Plus) 1 tab STK-MED ONCE .ROUTE ; Start at 09:00; Stop 12/13/17 at 09:04; Status DC Fluvoxamine Maleate (Luvox) 50 mg QHS PO Last administered on 12/15/17 19:40; Start 12/13/17 at 21:00; Stop 12/15/17 at 21:01; Status DC Fluvoxamine Maleate (Luvox) 75 mg QHS PO Last administered on 12/19/17at 19:46; Start 12/16/17 at 21:00; Stop 12/20/17 at 11:22; Status DC Nystatin (Nystop) 1 porsche BID TP Last administered on 12/22/17at 20:15; Start 12/14 at 09:00 Quetiapine Fumarate (SEROquel) 37.5 mg DAILY@1400 PO Last administered on at 15:02; Start 12/20/17 at 14:00 Quetiapine Fumarate (SEROquel) 25 mg BID PO Last administered on 12/22/17at 20: 14; Start 12/19/17 at 21:00 Fluvoxamine Maleate (Luvox) 100 mg QHS PO Last administered on 12/22/17at 20:14 ; Start 12/20/17 at 21:00 Active Scripts Active Reported Triamcinolone Acetonide 15 Gm Cream..g. 1 Porsche TP PRN TID PRN Nystop (Nystatin) 60 Gm Powder 1 Porsche TP PRN TID PRN Novolog Flexpen (Insulin Aspart) 100 Unit/1 Ml Insuln.pen 25 Unit SQ DAILYBFRLUN Novolog Flexpen (Insulin Aspart) 100 Unit/1 Ml Insuln.pen 15 Unit SQ DAILYWSUP Novolog Flexpen (Insulin Aspart) 100 Unit/1 Ml Insuln.pen 10 Unit SQ DAILYWBKFT [IBgard pepermint oil] 90mg Cap 90 Mg PO TIDWMEALS Omeprazole 20 Mg Capsule.dr 20 Mg PO DAILY06 Seroquel (Quetiapine Fumarate) 25 Mg Tablet 25 Mg PO PRN Q2HR PRN Quetiapine Fumarate 25 Mg Tablet 25 Mg PO TID Trazodone Hcl 50 Mg Tablet 50 Mg PO TIDWMEALS Clonazepam 0.5 Mg Tablet 0.5 Mg PO BID@1200,2100 Calmoseptine Ointment (Menthol/Zinc Oxide) 71 Gm Oint...g. 1 [place] TP PRN PRN Anusol-Hc (Hydrocortisone Acetate) 25 Mg Supp.rect 25 Mg RC PRN DAILY PRN Probiotic (Lactobacillus Acidophilus) 1 Each Capsule 1 Cap PO BID Lantus (Insulin Glargine,Hum.rec.anlog) 100 Unit/1 Ml Vial 45 Units SQ QHS Analgesic [place] (Methyl Salicylate/Menthol) 29 Gm Oint...g. 1 Porsche TP PRN QID PRN Mag-Al Plus Xs Suspension (Mag Hydrox/Al Hydrox/Simeth) 30 Ml Oral.susp 15 Ml PO PRN BFRMEALHC PRN Levothyroxine Sodium 25 Mcg Tablet 25 Mcg PO DAILY06 Melatonin 5 Mg Tablet 5 Mg PO PRN QHS PRN Colace (Docusate Sodium) 100 Mg Capsule 100 Mg PO PRN BID PRN Hold for Loose stools Milk Of Magnesia (Magnesium Hydroxide) 400 Mg/5 Ml Oral.susp 2,400 Mg PO PRN QHS PRN Vitamin D3 (Cholecalciferol (Vitamin D3)) 50,000 Unit Capsule 50,000 Unit PO QMONTH Administer on the 15th of every Month Zestril (Lisinopril) 10 Mg Tablet 10 Mg PO DAILY Hold for SBP less than 100. After a held dose, reassess in 2 hours. If SBP is above threshold admminister dose as ordered. If SBP is below threshold, contact provider for additional instructions Oyster Shell Calcium (Calcium Carbonate) 500 Mg Tablet 1,000 Mg PO DAILY Multivitamins (Multivitamin) 1 Each Tablet 1 Tab PO DAILYWSUP Fenofibrate 54 Mg Tablet 54 Mg PO QHS I have reviewed the current psychotropics carefully including drug interactions. Risk benefit ratio favors no change other than as noted in my dictated progress note. Diagnosis: Problems: (1) Anxiety (2) Dementia (3) Dementia (4) Impulse control disorder (5) Obsessive compulsive disorder (6) Medical clearance for psychiatric admission (7) Mood disorder (8) IMPULSE DISORDER, UNSPECIFIED (9) Impulse control disorder (10) DMII (diabetes mellitus, type 2) (11) Intellectual disability IDA LAINEZ MD Dec 22, 2017 21:05
[2017-12-23] MEDS: LEVOTHYROXINE 25 MCG TABLET. PO SCH (05:51)
[2017-12-23 06:04] VITALS: BP 120/56
[2017-12-23] MEDS: PANTOPRAZOLE 40 MG TABLET. PO SCH (08:18)
[2017-12-23] MEDS: traZODone 50 MG TABLET. PO SCH ×3 (08:18→17:08)
[2017-12-23] MEDS: CALCIUM CARBONATE 500 MG TABLET PO SCH (08:19)
[2017-12-23] MEDS: INSULIN ASPART 300 UNITS/3 ML INSULN.PEN SQ SCH ×3 (08:19→17:08)
[2017-12-23] MEDS: LACTOBACILLUS RHAMNOSUS GG 1 CAPSULE. PO SCH ×2 (08:23→20:49)
[2017-12-23] MEDS: NYSTATIN TOPICAL POWDER 15GM BOTTLE. TP SCH ×2 (08:26→20:49)
[2017-12-23] MEDS: QUEtiapine 25 MG TABLET. PO SCH ×3 (08:27→20:49)
[2017-12-23] MEDS: LISINOPRIL 10 MG TABLET PO SCH (09:00)
--- NOTE | 2017-12-23 10:15 | PN ---
DATE: 12/21/2017 This late entry, 12/21/2017 covers elements not covered in my initial note 12/21/2017. SUBJECTIVE: I met with the patient the evening of 12/21/2017. The patient remains somewhat obsessive, again following me around the unit wanting to pen down the discharge date. I have discussed this with her several times. At the end of it, she is a little less obsessive than she was a few days back. She gets upset, slamming the walker at one time, calling the nurse "big fat liar." REVIEW OF SYSTEMS: Ambulation impaired with walker. No CV, , pulmonary, eye system symptoms on review, vague somatic symptoms. MENTAL STATUS EXAM: Oriented to herself and situation. Speech is coherent, abstraction fair, computation impaired, language function intact, attention span short. Mood and affect still labile and anxious, but improved. LABORATORY DATA: Reviewed. IMPRESSION: Unchanged from initial note. PLAN: Continue current psychotropics. Consider increasing Luvox. Family would like the Seroquel tapered. We have already reduced it and in a day or 2, may reduce it further. MAN Stuart LAINEZ MD DR: YO/bakari JOB#: [id number] / [id number]
[2017-12-23] MEDS: clonazePAM 0.5 MG TABLET PO SCH ×2 (12:20→20:49)
[2017-12-23 16:12] VITALS: BP 135/81
[2017-12-23] MEDS: MULTIVITAMIN with MINERAL TABLET. PO SCH (17:08)
--- NOTE | 2017-12-23 19:09 | PN ---
DATE: 12/22/2017 This late entry 12/22/2017 covers the elements not covered in my initial note 12/22/2017. Met with the patient in the evening of 12/22/2017. The patient is little more cooperative, less obsessive, still anxious, still fixated on discharge plans processed with her, yells out at times. REVIEW OF SYSTEMS: Ambulation impaired with walker. No CV, , pulmonary, eye system symptoms on review. MENTAL STATUS EXAM: Reasonably oriented to place and situation. Speech coherent, rapid at times, less pressured. Abstraction fair, computation impaired, language function intact, attention span short. Mood and affect still somewhat anxious, labile but improved. IMPRESSION: Unchanged. PLAN: Continue current psychotropics. Adjust as clinically indicated. May need to increase Luvox, but 100 mg at bedtime currently has an adequate dosage for now. MAN Stuart LAINEZ MD DR: YO/bakari JOB#: [id number] / [id number]
[2017-12-23] MEDS: FENOFIBRATE NANOCRYSTALLIZED 48 MG TABLET PO SCH (20:50)
[2017-12-23] MEDS: INSULIN DETEMIR 300 UNITS/3 ML INSULN.PEN. SQ SCH (20:51)
--- NOTE | 2017-12-23 21:02 | PDOC ---
Exam Note: Marcelo Note: Please also refer to the separate dictated note~for this date of service dictated separately.~Patient seen individually. Discussed the patient with Nursing staff reviewed the chart.~Reviewed interim history and current functioning. Reviewed vital signs,~Labs/ Radiology~and current medications noted below. Continue current treatment with the changes noted in the dictated addendum note Assessment: Vital Signs: Vital Signs Date Time Temp Pulse Resp B/P (MAP) Pulse Ox O2 Delivery O2 Flow Rate FiO2 12/23/17 16:12 97.9 92 18 135/81 (99) 98 12/22/17 16:16 Room Air I&O Intake and Output 12/23/17 07:00 Intake Total 1060 ml Balance 1060 ml Intake Oral 1060 ml Labs: Laboratory Tests Test 12/23/17 07:37 12/23/17 11:42 12/23/17 16:31 12/23/17 19:10 Glucose (Fingerstick) 155 mg/dL (70-99) H 311 mg/dL (70-99) H 211 mg/dL (70-99) H 257 mg/dL (70-99) H Current Medications: Meds: Current Medications Clonazepam (KlonoPIN) 0.5 mg BID@1200,2100 PO Last administered on 12/23/17at 20 :49; Start 12/08/17 at 22:00 Quetiapine Fumarate (SEROquel) 25 mg TID PO Last administered on 12/12/17at 14: 23; Start 12/08/17 at 22:00; Stop 12/12/17 at 18:40; Status DC Quetiapine Fumarate (SEROquel) 25 mg PRN Q2HR PRN PO ANXIETY / AGITATION; Start 12/08/17 at 21:45 Trazodone HCl (Desyrel) 50 mg TIDWMEALS PO Last administered on 12/23/17at 17:08 ; Start 12/09/17 at 08:00 Melatonin 6 mg PRN QHS PRN PO INSOMNIA Last administered on 12/09/17at 20:15; Start 12/08/17 at 21:45 Calcium Carbonate/ Glycine (Oscal) 1,000 mg DAILYWBKFT PO Last administered on 12/23/17at 08:19; Start 12/09/17 at 08:00 Vitamin D (Vitamin D3) 50,000 unit QMONTH PO ; Start 01/07/18 at 09:00 Docusate Sodium (Colace) 100 mg PRN BID PRN PO CONSTIPATION; Start 12/08/17 at 22:30 Hydrocortisone Acetate (Anucort-Hc) 25 mg PRN DAILY PRN RC burning or blood in BM; Start 12/08/17 at 22:30 Insulin Aspart (NovoLOG) 10 units DAILYWBKFT SQ Last administered on 12/23/17at 08:19; Start 12/09/17 at 08:00 Insulin Aspart (NovoLOG) 15 units DAILYWSUP SQ Last administered on 12/23/17at 17:08; Start 12/09/17 at 17:00 Insulin Aspart (NovoLOG) 25 units DAILYBFRLUN SQ Last administered on at 12:19; Start 12/09/17 at 11:30 Levothyroxine Sodium (Synthroid) 25 mcg DAILY06 PO Last administered on at 05:51; Start 12/09/17 at 06:00 Lisinopril (Prinivil) 10 mg DAILY PO Last administered on 12/22/17at 08:13; Start 12/09/17 at 09:00 Al Hydroxide/Mg Hydroxide (Mylanta Plus Xs) 15 ml PRN BFRMEALHC PRN PO DYSPEPSIA; Start 12/08/17 at 22:30 Magnesium Hydroxide (Milk Of Magnesia) 2,400 mg PRN QHS PRN PO CONSTIPATION; Start 12/08/17 at 22:30 Calamine/Phenol (Calmoseptine) 1 porsche PRN TID PRN TP SKIN PROTECTION; Start at 22:30 Multi-Ingredient Ointment (Analgesic [place]) 1 porsche PRN QID PRN TP MUSCLE PAIN; Start 12/08/17 at 22:30 Nystatin (Nystop) 1 porsche PRN TID PRN TP RASH; Start 12/08/17 at 22:30 Triamcinolone Acetonide (Aristocort) 1 porsche PRN TID PRN TP RASH; Start 12/08/17 at 22:30 Fenofibrate (Tricor) 48 mg QHS PO Last administered on 12/23/17at 20:50; Start 12/09/17 at 21:00 Insulin Glargine (Lantus) 45 units QHS SQ ; Start 12/09/17 at 21:00; Status Cancel Lactobacillus Rhamnosus (Culturelle) 1 cap BID PO Last administered on at 20:49; Start 12/09/17 at 09:00 Multivitamins/ Calcium (Thera-M Plus) 1 tab DAILYWSUP PO Last administered on at 17:08; Start 12/09/17 at 17:00 Pantoprazole Sodium (Protonix) 40 mg DAILYAC PO Last administered on 12/23/17at 08:18; Start 12/09/17 at 07:30 Non-Formulary Medication 90 mg TIDWMEALS PO ; Start 12/09/17 at 08:00; Stop at 08:00; Status DC Insulin Detemir (Levemir) 45 units QHS SQ Last administered on 12/23/17at 20:51 ; Start 12/09/17 at 21:00 Olanzapine (ZyPREXA ZYDIS) 2.5 mg PRN Q2HR PRN PO PSYCHOSIS; Start 12/08/17 at 23:30 Cephalexin HCl (Keflex) 500 mg BID PO Last administered on 12/18/17at 08:36; Start 12/09/17 at 09:00; Stop 12/18/17 at 13:19; Status DC Fluvoxamine Maleate (Luvox) 25 mg DAILY PO Last administered on 12/12/17at 08:30 ; Start 12/10/17 at 09:00; Stop 12/12/17 at 18:40; Status DC Fluvoxamine Maleate (Luvox) 50 mg DAILY PO ; Start 12/13/17 at 09:00; Stop at 09:00; Status DC Fluvoxamine Maleate (Luvox) 75 mg DAILY PO ; Start 12/16/17 at 09:01; Stop at 09:01; Status DC Quetiapine Fumarate (SEROquel) 37.5 mg TID PO Last administered on 12/19/17at 13: 34; Start 12/12/17 at 21:00; Stop 12/19/17 at 19:12; Status DC Fenofibrate (Tricor) 48 mg STK-MED ONCE PO ; Start 12/09/17 at 09:00; Stop at 09:02; Status DC Multivitamins/ Calcium (Thera-M Plus) 1 tab STK-MED ONCE .ROUTE ; Start at 09:00; Stop 12/13/17 at 09:02; Status DC Fenofibrate (Tricor) 48 mg STK-MED ONCE PO ; Start 12/10/17 at 09:00; Stop at 09:03; Status DC Multivitamins/ Calcium (Thera-M Plus) 1 tab STK-MED ONCE .ROUTE ; Start at 09:00; Stop 12/13/17 at 09:03; Status DC Fenofibrate (Tricor) 48 mg STK-MED ONCE PO ; Start 12/11/17 at 09:00; Stop at 09:03; Status DC Multivitamins/ Calcium (Thera-M Plus) 1 tab STK-MED ONCE .ROUTE ; Start at 09:00; Stop 12/13/17 at 09:03; Status DC Fenofibrate (Tricor) 48 mg STK-MED ONCE PO ; Start 12/12/17 at 09:00; Stop at 09:04; Status DC Multivitamins/ Calcium (Thera-M Plus) 1 tab STK-MED ONCE .ROUTE ; Start at 09:00; Stop 12/13/17 at 09:04; Status DC Fluvoxamine Maleate (Luvox) 50 mg QHS PO Last administered on 12/15/17at 19:40; Start 12/13/17 at 21:00; Stop 12/15/17 at 21:01; Status DC Fluvoxamine Maleate (Luvox) 75 mg QHS PO Last administered on 12/19/17at 19:46; Start 12/16/17 at 21:00; Stop 12/20/17 at 11:22; Status DC Nystatin (Nystop) 1 porsche BID TP Last administered on 12/23/17at 20:49; Start 12/14 at 09:00 Quetiapine Fumarate (SEROquel) 37.5 mg DAILY@1400 PO Last administered on at 14:26; Start 12/20/17 at 14:00 Quetiapine Fumarate (SEROquel) 25 mg BID PO Last administered on 12/23/17at 20: 49; Start 12/19/17 at 21:00 Fluvoxamine Maleate (Luvox) 100 mg QHS PO Last administered on 12/23/17at 20:49 ; Start 12/20/17 at 21:00 Active Scripts Active Reported Triamcinolone Acetonide 15 Gm Cream..g. 1 Porsche TP PRN TID PRN Nystop (Nystatin) 60 Gm Powder 1 Porsche TP PRN TID PRN Novolog Flexpen (Insulin Aspart) 100 Unit/1 Ml Insuln.pen 25 Unit SQ DAILYBFRLUN Novolog Flexpen (Insulin Aspart) 100 Unit/1 Ml Insuln.pen 15 Unit SQ DAILYWSUP Novolog Flexpen (Insulin Aspart) 100 Unit/1 Ml Insuln.pen 10 Unit SQ DAILYWBKFT [IBgard pepermint oil] 90mg Cap 90 Mg PO TIDWMEALS Omeprazole 20 Mg Capsule.dr 20 Mg PO DAILY06 Seroquel (Quetiapine Fumarate) 25 Mg Tablet 25 Mg PO PRN Q2HR PRN Quetiapine Fumarate 25 Mg Tablet 25 Mg PO TID Trazodone Hcl 50 Mg Tablet 50 Mg PO TIDWMEALS Clonazepam 0.5 Mg Tablet 0.5 Mg PO BID@1200,2100 Calmoseptine Ointment (Menthol/Zinc Oxide) 71 Gm Oint...g. 1 Porsche TP PRN PRN Anusol-Hc (Hydrocortisone Acetate) 25 Mg Supp.rect 25 Mg RC PRN DAILY PRN Probiotic (Lactobacillus Acidophilus) 1 Each Capsule 1 Cap PO BID Lantus (Insulin Glargine,Hum.rec.anlog) 100 Unit/1 Ml Vial 45 Units SQ QHS Analgesic [place] (Methyl Salicylate/Menthol) 29 Gm Oint...g. 1 Porsche TP PRN QID PRN Mag-Al Plus Xs Suspension (Mag Hydrox/Al Hydrox/Simeth) 30 Ml Oral.susp 15 Ml PO PRN BFRMEALHC PRN Levothyroxine Sodium 25 Mcg Tablet 25 Mcg PO DAILY06 Melatonin 5 Mg Tablet 5 Mg PO PRN QHS PRN Colace (Docusate Sodium) 100 Mg Capsule 100 Mg PO PRN BID PRN Hold for Loose stools Milk Of Magnesia (Magnesium Hydroxide) 400 Mg/5 Ml Oral.susp 2,400 Mg PO PRN QHS PRN Vitamin D3 (Cholecalciferol (Vitamin D3)) 50,000 Unit Capsule 50,000 Unit PO QMONTH Administer on the 15th of every Month Zestril (Lisinopril) 10 Mg Tablet 10 Mg PO DAILY Hold for SBP less than 100. After a held dose, reassess in 2 hours. If SBP is above threshold admminister dose as ordered. If SBP is below threshold, contact provider for additional instructions Oyster Shell Calcium (Calcium Carbonate) 500 Mg Tablet 1,000 Mg PO DAILY Multivitamins (Multivitamin) 1 Each Tablet 1 Tab PO DAILYWSUP Fenofibrate 54 Mg Tablet 54 Mg PO QHS I have reviewed the current psychotropics carefully including drug interactions. Risk benefit ratio favors no change other than as noted in my dictated progress note. Diagnosis: Problems: (1) Anxiety (2) Dementia (3) Dementia (4) Impulse control disorder (5) Obsessive compulsive disorder (6) Medical clearance for psychiatric admission (7) Mood disorder (8) IMPULSE DISORDER, UNSPECIFIED (9) Impulse control disorder (10) DMII (diabetes mellitus, type 2) (11) Intellectual disability IDA LAINEZ MD Dec 23, 2017 21:02
[2017-12-24 05:43] VITALS: BP 107/61
[2017-12-24] MEDS: LEVOTHYROXINE 25 MCG TABLET. PO SCH (05:48)
[2017-12-24] MEDS: CALCIUM CARBONATE 500 MG TABLET PO SCH (08:04)
[2017-12-24] MEDS: INSULIN ASPART 300 UNITS/3 ML INSULN.PEN SQ SCH ×3 (08:04→17:13)
[2017-12-24] MEDS: LACTOBACILLUS RHAMNOSUS GG 1 CAPSULE. PO SCH ×2 (08:04→20:01)
[2017-12-24] MEDS: traZODone 50 MG TABLET. PO SCH ×3 (08:04→17:15)
[2017-12-24] MEDS: PANTOPRAZOLE 40 MG TABLET. PO SCH (08:04)
[2017-12-24] MEDS: QUEtiapine 25 MG TABLET. PO SCH ×3 (08:04→20:01)
[2017-12-24] MEDS: NYSTATIN TOPICAL POWDER 15GM BOTTLE. TP SCH ×2 (08:05→20:03)
[2017-12-24] MEDS: LISINOPRIL 10 MG TABLET PO SCH (09:00)
[2017-12-24] MEDS: clonazePAM 0.5 MG TABLET PO SCH ×2 (13:32→20:03)
[2017-12-24 16:05] VITALS: BP 131/84
[2017-12-24] MEDS: MULTIVITAMIN with MINERAL TABLET. PO SCH (17:14)
[2017-12-24] MEDS: FENOFIBRATE NANOCRYSTALLIZED 48 MG TABLET PO SCH (20:01)
[2017-12-24] MEDS: INSULIN DETEMIR 300 UNITS/3 ML INSULN.PEN. SQ SCH (20:04)
--- NOTE | 2017-12-24 20:26 | PDOC ---
Exam Note: Marcelo Note: Please also refer to the separate dictated note~for this date of service dictated separately.~Patient seen individually. Discussed the patient with Nursing staff reviewed the chart.~Reviewed interim history and current functioning. Reviewed vital signs,~Labs/ Radiology~and current medications noted below. Continue current treatment with the changes noted in the dictated addendum note Assessment: Vital Signs: Vital Signs Date Time Temp Pulse Resp B/P (MAP) Pulse Ox O2 Delivery O2 Flow Rate FiO2 12/24/17 16:05 97.6 82 18 131/84 (100) 100 12/22/17 16:16 Room Air I&O Intake and Output 12/24/17 07:00 Intake Total 1320 ml Balance 1320 ml Intake Oral 1320 ml Labs: Laboratory Tests Test 12/24/17 07:25 12/24/17 11:39 12/24/17 16:45 12/24/17 19:12 Glucose (Fingerstick) 160 mg/dL (70-99) H 214 mg/dL (70-99) H 191 mg/dL (70-99) H 205 mg/dL (70-99) H Current Medications: Meds: Current Medications Clonazepam (KlonoPIN) 0.5 mg BID@1200,2100 PO Last administered on 12/24/17at 20 :03; Start 12/08/17 at 22:00 Quetiapine Fumarate (SEROquel) 25 mg TID PO Last administered on 12/12/17at 14: 23; Start 12/08/17 at 22:00; Stop 12/12/17 at 18:40; Status DC Quetiapine Fumarate (SEROquel) 25 mg PRN Q2HR PRN PO ANXIETY / AGITATION; Start 12/08/17 at 21:45 Trazodone HCl (Desyrel) 50 mg TIDWMEALS PO Last administered on 12/24/17at 17:15 ; Start 12/09/17 at 08:00 Melatonin 6 mg PRN QHS PRN PO INSOMNIA Last administered on 12/09/17at 20:15; Start 12/08/17 at 21:45 Calcium Carbonate/ Glycine (Oscal) 1,000 mg DAILYWBKFT PO Last administered on 12/24/17at 08:04; Start 12/09/17 at 08:00 Vitamin D (Vitamin D3) 50,000 unit QMONTH PO ; Start 01/07/18 at 09:00 Docusate Sodium (Colace) 100 mg PRN BID PRN PO CONSTIPATION; Start 12/08/17 at 22:30 Hydrocortisone Acetate (Anucort-Hc) 25 mg PRN DAILY PRN RC burning or blood in BM; Start 12/08/17 at 22:30 Insulin Aspart (NovoLOG) 10 units DAILYWBKFT SQ Last administered on 12/24/17at 08:04; Start 12/09/17 at 08:00 Insulin Aspart (NovoLOG) 15 units DAILYWSUP SQ Last administered on 12/24/17at 17:13; Start 12/09/17 at 17:00 Insulin Aspart (NovoLOG) 25 units DAILYBFRLUN SQ Last administered on at 12:37; Start 12/09/17 at 11:30 Levothyroxine Sodium (Synthroid) 25 mcg DAILY06 PO Last administered on at 05:48; Start 12/09/17 at 06:00 Lisinopril (Prinivil) 10 mg DAILY PO Last administered on 12/22/17at 08:13; Start 12/09/17 at 09:00; Stop 12/24/17 at 14:22; Status DC Al Hydroxide/Mg Hydroxide (Mylanta Plus Xs) 15 ml PRN BFRMEALHC PRN PO DYSPEPSIA; Start 12/08/17 at 22:30 Magnesium Hydroxide (Milk Of Magnesia) 2,400 mg PRN QHS PRN PO CONSTIPATION; Start 12/08/17 at 22:30 Calamine/Phenol (Calmoseptine) 1 porsche PRN TID PRN TP SKIN PROTECTION; Start at 22:30 Multi-Ingredient Ointment (Analgesic [place]) 1 porsche PRN QID PRN TP MUSCLE PAIN; Start 12/08/17 at 22:30 Nystatin (Nystop) 1 porsche PRN TID PRN TP RASH; Start 12/08/17 at 22:30 Triamcinolone Acetonide (Aristocort) 1 porsche PRN TID PRN TP RASH; Start 12/08/17 at 22:30 Fenofibrate (Tricor) 48 mg QHS PO Last administered on 12/24/17at 20:01; Start 12/09/17 at 21:00 Insulin Glargine (Lantus) 45 units QHS SQ ; Start 12/09/17 at 21:00; Status Cancel Lactobacillus Rhamnosus (Culturelle) 1 cap BID PO Last administered on at 20:01; Start 12/09/17 at 09:00 Multivitamins/ Calcium (Thera-M Plus) 1 tab DAILYWSUP PO Last administered on at 17:14; Start 12/09/17 at 17:00 Pantoprazole Sodium (Protonix) 40 mg DAILYAC PO Last administered on 12/24/17at 08:04; Start 12/09/17 at 07:30 Non-Formulary Medication 90 mg TIDWMEALS PO ; Start 12/09/17 at 08:00; Stop at 08:00; Status DC Insulin Detemir (Levemir) 45 units QHS SQ Last administered on 12/24/17at 20:04 ; Start 12/09/17 at 21:00 Olanzapine (ZyPREXA ZYDIS) 2.5 mg PRN Q2HR PRN PO PSYCHOSIS; Start 12/08/17 at 23:30 Cephalexin HCl (Keflex) 500 mg BID PO Last administered on 12/18/17at 08:36; Start 12/09/17 at 09:00; Stop 12/18/17 at 13:19; Status DC Fluvoxamine Maleate (Luvox) 25 mg DAILY PO Last administered on 12/12/17at 08:30 ; Start 12/10/17 at 09:00; Stop 12/12/17 at 18:40; Status DC Fluvoxamine Maleate (Luvox) 50 mg DAILY PO ; Start 12/13/17 at 09:00; Stop at 09:00; Status DC Fluvoxamine Maleate (Luvox) 75 mg DAILY PO ; Start 12/16/17 at 09:01; Stop at 09:01; Status DC Quetiapine Fumarate (SEROquel) 37.5 mg TID PO Last administered on 12/19/17at 13: 34; Start 12/12/17 at 21:00; Stop 12/19/17 at 19:12; Status DC Fenofibrate (Tricor) 48 mg STK-MED ONCE PO ; Start 12/09/17 at 09:00; Stop at 09:02; Status DC Multivitamins/ Calcium (Thera-M Plus) 1 tab STK-MED ONCE .ROUTE ; Start at 09:00; Stop 12/13/17 at 09:02; Status DC Fenofibrate (Tricor) 48 mg STK-MED ONCE PO ; Start 12/10/17 at 09:00; Stop at 09:03; Status DC Multivitamins/ Calcium (Thera-M Plus) 1 tab STK-MED ONCE .ROUTE ; Start at 09:00; Stop 12/13/17 at 09:03; Status DC Fenofibrate (Tricor) 48 mg STK-MED ONCE PO ; Start 12/11/17 at 09:00; Stop at 09:03; Status DC Multivitamins/ Calcium (Thera-M Plus) 1 tab STK-MED ONCE .ROUTE ; Start at 09:00; Stop 12/13/17 at 09:03; Status DC Fenofibrate (Tricor) 48 mg STK-MED ONCE PO ; Start 12/12/17 at 09:00; Stop at 09:04; Status DC Multivitamins/ Calcium (Thera-M Plus) 1 tab STK-MED ONCE .ROUTE ; Start at 09:00; Stop 12/13/17 at 09:04; Status DC Fluvoxamine Maleate (Luvox) 50 mg QHS PO Last administered on 12/15/17at 19:40; Start 12/13/17 at 21:00; Stop 12/15/17 at 21:01; Status DC Fluvoxamine Maleate (Luvox) 75 mg QHS PO Last administered on 12/19/17at 19:46; Start 12/16/17 at 21:00; Stop 12/20/17 at 11:22; Status DC Nystatin (Nystop) 1 porsche BID TP Last administered on 12/24/17at 20:03; Start 12/14 at 09:00 Quetiapine Fumarate (SEROquel) 37.5 mg DAILY@1400 PO Last administered on at 13:33; Start 12/20/17 at 14:00 Quetiapine Fumarate (SEROquel) 25 mg BID PO Last administered on 12/24/17at 20: 01; Start 12/19/17 at 21:00 Fluvoxamine Maleate (Luvox) 100 mg QHS PO Last administered on 12/24/17at 20:01 ; Start 12/20/17 at 21:00 Lisinopril (Prinivil) 5 mg DAILY PO ; Start 12/25/17 at 09:00 Active Scripts Active Reported Triamcinolone Acetonide 15 Gm Cream..g. 1 Porsche TP PRN TID PRN Nystop (Nystatin) 60 Gm Powder 1 Porsche TP PRN TID PRN Novolog Flexpen (Insulin Aspart) 100 Unit/1 Ml Insuln.pen 25 Unit SQ DAILYBFRLUN Novolog Flexpen (Insulin Aspart) 100 Unit/1 Ml Insuln.pen 15 Unit SQ DAILYWSUP Novolog Flexpen (Insulin Aspart) 100 Unit/1 Ml Insuln.pen 10 Unit SQ DAILYWBKFT [IBgard pepermint oil] 90mg Cap 90 Mg PO TIDWMEALS Omeprazole 20 Mg Capsule.dr 20 Mg PO DAILY06 Seroquel (Quetiapine Fumarate) 25 Mg Tablet 25 Mg PO PRN Q2HR PRN Quetiapine Fumarate 25 Mg Tablet 25 Mg PO TID Trazodone Hcl 50 Mg Tablet 50 Mg PO TIDWMEALS Clonazepam 0.5 Mg Tablet 0.5 Mg PO BID@1200,2100 Calmoseptine Ointment (Menthol/Zinc Oxide) 71 Gm Oint...g. 1 Porsche TP PRN PRN Anusol-Hc (Hydrocortisone Acetate) 25 Mg Supp.rect 25 Mg RC PRN DAILY PRN Probiotic (Lactobacillus Acidophilus) 1 Each Capsule 1 Cap PO BID Lantus (Insulin Glargine,Hum.rec.anlog) 100 Unit/1 Ml Vial 45 Units SQ QHS Analgesic [place] (Methyl Salicylate/Menthol) 29 Gm Oint...g. 1 Porsche TP PRN QID PRN Mag-Al Plus Xs Suspension (Mag Hydrox/Al Hydrox/Simeth) 30 Ml Oral.susp 15 Ml PO PRN BFRMEALHC PRN Levothyroxine Sodium 25 Mcg Tablet 25 Mcg PO DAILY06 Melatonin 5 Mg Tablet 5 Mg PO PRN QHS PRN Colace (Docusate Sodium) 100 Mg Capsule 100 Mg PO PRN BID PRN Hold for Loose stools Milk Of Magnesia (Magnesium Hydroxide) 400 Mg/5 Ml Oral.susp 2,400 Mg PO PRN QHS PRN Vitamin D3 (Cholecalciferol (Vitamin D3)) 50,000 Unit Capsule 50,000 Unit PO QMONTH Administer on the 15th of every Month Zestril (Lisinopril) 10 Mg Tablet 10 Mg PO DAILY Hold for SBP less than 100. After a held dose, reassess in 2 hours. If SBP is above threshold admminister dose as ordered. If SBP is below threshold, contact provider for additional instructions Oyster Shell Calcium (Calcium Carbonate) 500 Mg Tablet 1,000 Mg PO DAILY Multivitamins (Multivitamin) 1 Each Tablet 1 Tab PO DAILYWSUP Fenofibrate 54 Mg Tablet 54 Mg PO QHS I have reviewed the current psychotropics carefully including drug interactions. Risk benefit ratio favors no change other than as noted in my dictated progress note. Diagnosis: Problems: (1) Anxiety (2) Dementia (3) Dementia (4) Impulse control disorder (5) Obsessive compulsive disorder (6) Medical clearance for psychiatric admission (7) Mood disorder (8) IMPULSE DISORDER, UNSPECIFIED (9) Impulse control disorder (10) DMII (diabetes mellitus, type 2) (11) Intellectual disability IDA LAINEZ MD Dec 24, 2017 20:26
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
[2017-12-25] MEDS: LEVOTHYROXINE 25 MCG TABLET. PO SCH (05:52)
[2017-12-25 05:56] VITALS: BP 122/66
[2017-12-25] MEDS: traZODone 50 MG TABLET. PO SCH ×3 (07:44→17:13)
[2017-12-25] MEDS: LACTOBACILLUS RHAMNOSUS GG 1 CAPSULE. PO SCH ×2 (07:45→20:21)
[2017-12-25] MEDS: QUEtiapine 25 MG TABLET. PO SCH ×3 (07:45→20:21)
[2017-12-25] MEDS: CALCIUM CARBONATE 500 MG TABLET PO SCH (07:45)
[2017-12-25] MEDS: PANTOPRAZOLE 40 MG TABLET. PO SCH (07:45)
[2017-12-25] MEDS: NYSTATIN TOPICAL POWDER 15GM BOTTLE. TP SCH ×2 (07:45→20:25)
[2017-12-25] MEDS: LISINOPRIL 5 MG TABLET. PO SCH (07:47)
[2017-12-25] MEDS: INSULIN ASPART 300 UNITS/3 ML INSULN.PEN SQ SCH ×3 (08:26→17:15)
[2017-12-25] MEDS: clonazePAM 0.5 MG TABLET PO SCH ×2 (12:14→20:22)
[2017-12-25 15:57] VITALS: BP 133/63
[2017-12-25] MEDS: MULTIVITAMIN with MINERAL TABLET. PO SCH (17:13)
[2017-12-25] MEDS: FENOFIBRATE NANOCRYSTALLIZED 48 MG TABLET PO SCH (20:22)
[2017-12-25] MEDS: INSULIN DETEMIR 300 UNITS/3 ML INSULN.PEN. SQ SCH (20:24)
[2017-12-25] MEDS ORDERED: LISI-338 PO (21:16)
[2017-12-25] MEDS ORDERED: NYST60PO TP (21:19)
[2017-12-25] MEDS ORDERED: QUET25TA5 PO ×2 (21:21→21:22)
[2017-12-25] MEDS ORDERED: FLUV100T2 PO (21:23)
[2017-12-25] MEDS ORDERED: OLAN5TAB9 PO (21:32)
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
--- NOTE | 2017-12-25 22:20 | PDOC ---
Exam Note: Marcelo Note: Please also refer to the separate dictated note~for this date of service dictated separately.~Patient seen individually. Discussed the patient with Nursing staff reviewed the chart.~Reviewed interim history and current functioning. Reviewed vital signs,~Labs/ Radiology~and current medications noted below. Continue current treatment with the changes noted in the dictated addendum note Assessment: Vital Signs: Vital Signs Date Time Temp Pulse Resp B/P (MAP) Pulse Ox O2 Delivery O2 Flow Rate FiO2 12/25/17 15:57 97.8 79 21 133/63 (86) 96 12/22/17 16:16 Room Air I&O Intake and Output 12/25/17 07:00 Intake Total 1080 ml Balance 1080 ml Intake Oral 1080 ml # Voids 2 Labs: Laboratory Tests Test 12/25/17 12:09 12/25/17 17:10 12/25/17 18:57 Glucose (Fingerstick) 381 mg/dL (70-99) H 209 mg/dL (70-99) H 156 mg/dL (70-99) H Current Medications: Meds: Current Medications Clonazepam (KlonoPIN) 0.5 mg BID@1200,2100 PO Last administered on 12/25/17at 20 :22; Start 12/08/17 at 22:00 Quetiapine Fumarate (SEROquel) 25 mg TID PO Last administered on 12/12/17at 14: 23; Start 12/08/17 at 22:00; Stop 12/12/17 at 18:40; Status DC Quetiapine Fumarate (SEROquel) 25 mg PRN Q2HR PRN PO ANXIETY / AGITATION; Start 12/08/17 at 21:45 Trazodone HCl (Desyrel) 50 mg TIDWMEALS PO Last administered on 12/25/17at 17:13 ; Start 12/09/17 at 08:00 Melatonin 6 mg PRN QHS PRN PO INSOMNIA Last administered on 12/09/17at 20:15; Start 12/08/17 at 21:45 Calcium Carbonate/ Glycine (Oscal) 1,000 mg DAILYWBKFT PO Last administered on 12/25/17at 07:45; Start 12/09/17 at 08:00 Vitamin D (Vitamin D3) 50,000 unit QMONTH PO ; Start 01/07/18 at 09:00 Docusate Sodium (Colace) 100 mg PRN BID PRN PO CONSTIPATION; Start 12/08/17 at 22:30 Hydrocortisone Acetate (Anucort-Hc) 25 mg PRN DAILY PRN RC burning or blood in BM; Start 12/08/17 at 22:30 Insulin Aspart (NovoLOG) 10 units DAILYWBKFT SQ Last administered on 12/25/17at 08:26; Start 12/09/17 at 08:00 Insulin Aspart (NovoLOG) 15 units DAILYWSUP SQ Last administered on 12/25/17at 17:15; Start 12/09/17 at 17:00 Insulin Aspart (NovoLOG) 25 units DAILYBFRLUN SQ Last administered on at 12:15; Start 12/09/17 at 11:30 Levothyroxine Sodium (Synthroid) 25 mcg DAILY06 PO Last administered on at 05:52; Start 12/09/17 at 06:00 Lisinopril (Prinivil) 10 mg DAILY PO Last administered on 12/22/17at 08:13; Start 12/09/17 at 09:00; Stop 12/24/17 at 14:22; Status DC Al Hydroxide/Mg Hydroxide (Mylanta Plus Xs) 15 ml PRN BFRMEALHC PRN PO DYSPEPSIA; Start 12/08/17 at 22:30 Magnesium Hydroxide (Milk Of Magnesia) 2,400 mg PRN QHS PRN PO CONSTIPATION; Start 12/08/17 at 22:30 Calamine/Phenol (Calmoseptine) 1 porsche PRN TID PRN TP SKIN PROTECTION; Start at 22:30 Multi-Ingredient Ointment (Analgesic [place]) 1 porsche PRN QID PRN TP MUSCLE PAIN; Start 12/08/17 at 22:30 Nystatin (Nystop) 1 porsche PRN TID PRN TP RASH; Start 12/08/17 at 22:30 Triamcinolone Acetonide (Aristocort) 1 porsche PRN TID PRN TP RASH; Start 12/08/17 at 22:30 Fenofibrate (Tricor) 48 mg QHS PO Last administered on 12/25/17at 20:22; Start 12/09/17 at 21:00 Insulin Glargine (Lantus) 45 units QHS SQ ; Start 12/09/17 at 21:00; Status Cancel Lactobacillus Rhamnosus (Culturelle) 1 cap BID PO Last administered on at 20:21; Start 12/09/17 at 09:00 Multivitamins/ Calcium (Thera-M Plus) 1 tab DAILYWSUP PO Last administered on at 17:13; Start 12/09/17 at 17:00 Pantoprazole Sodium (Protonix) 40 mg DAILYAC PO Last administered on 12/25/17at 07:45; Start 12/09/17 at 07:30 Non-Formulary Medication 90 mg TIDWMEALS PO ; Start 12/09/17 at 08:00; Stop at 08:00; Status DC Insulin Detemir (Levemir) 45 units QHS SQ Last administered on 12/25/17at 20:24 ; Start 12/09/17 at 21:00 Olanzapine (ZyPREXA ZYDIS) 2.5 mg PRN Q2HR PRN PO PSYCHOSIS; Start 12/08/17 at 23:30 Cephalexin HCl (Keflex) 500 mg BID PO Last administered on 12/18/17at 08:36; Start 12/09/17 at 09:00; Stop 12/18/17 at 13:19; Status DC Fluvoxamine Maleate (Luvox) 25 mg DAILY PO Last administered on 12/12/17at 08:30 ; Start 12/10/17 at 09:00; Stop 12/12/17 at 18:40; Status DC Fluvoxamine Maleate (Luvox) 50 mg DAILY PO ; Start 12/13/17 at 09:00; Stop at 09:00; Status DC Fluvoxamine Maleate (Luvox) 75 mg DAILY PO ; Start 12/16/17 at 09:01; Stop at 09:01; Status DC Quetiapine Fumarate (SEROquel) 37.5 mg TID PO Last administered on 12/19/17at 13: 34; Start 12/12/17 at 21:00; Stop 12/19/17 at 19:12; Status DC Fenofibrate (Tricor) 48 mg STK-MED ONCE PO ; Start 12/09/17 at 09:00; Stop at 09:02; Status DC Multivitamins/ Calcium (Thera-M Plus) 1 tab STK-MED ONCE .ROUTE ; Start at 09:00; Stop 12/13/17 at 09:02; Status DC Fenofibrate (Tricor) 48 mg STK-MED ONCE PO ; Start 12/10/17 at 09:00; Stop at 09:03; Status DC Multivitamins/ Calcium (Thera-M Plus) 1 tab STK-MED ONCE .ROUTE ; Start at 09:00; Stop 12/13/17 at 09:03; Status DC Fenofibrate (Tricor) 48 mg STK-MED ONCE PO ; Start 12/11/17 at 09:00; Stop at 09:03; Status DC Multivitamins/ Calcium (Thera-M Plus) 1 tab STK-MED ONCE .ROUTE ; Start at 09:00; Stop 12/13/17 at 09:03; Status DC Fenofibrate (Tricor) 48 mg STK-MED ONCE PO ; Start 12/12/17 at 09:00; Stop at 09:04; Status DC Multivitamins/ Calcium (Thera-M Plus) 1 tab STK-MED ONCE .ROUTE ; Start at 09:00; Stop 12/13/17 at 09:04; Status DC Fluvoxamine Maleate (Luvox) 50 mg QHS PO Last administered on 12/15/17at 19:40; Start 12/13/17 at 21:00; Stop 12/15/17 at 21:01; Status DC Fluvoxamine Maleate (Luvox) 75 mg QHS PO Last administered on 12/19/17at 19:46; Start 12/16/17 at 21:00; Stop 12/20/17 at 11:22; Status DC Nystatin (Nystop) 1 porsche BID TP Last administered on 12/25/17at 20:25; Start 12/14 at 09:00 Quetiapine Fumarate (SEROquel) 37.5 mg DAILY@1400 PO Last administered on at 13:49; Start 12/20/17 at 14:00 Quetiapine Fumarate (SEROquel) 25 mg BID PO Last administered on 12/25/17at 20: 21; Start 12/19/17 at 21:00 Fluvoxamine Maleate (Luvox) 100 mg QHS PO Last administered on 12/25/17at 20:21 ; Start 12/20/17 at 21:00 Lisinopril (Prinivil) 5 mg DAILY PO Last administered on 12/25/17at 07:47; Start 12/25/17 at 09:00 Active Scripts Active Reported Olanzapine 5 Mg Tablet 2.5 Mg PO PRN Q2HR PRN Fluvoxamine Maleate 100 Mg Tablet 100 Mg PO HS Seroquel (Quetiapine Fumarate) 25 Mg Tablet 25 Mg PO BID Seroquel (Quetiapine Fumarate) 25 Mg Tablet 37.5 Mg PO DAILY@1400 Nystop (Nystatin) 60 Gm Powder 1 Porsche TP BID Lisinopril 5 Mg Tablet 5 Mg PO DAILY Triamcinolone Acetonide 15 Gm Cream..g. 1 Porsche TP PRN TID PRN Nystop (Nystatin) 60 Gm Powder 1 Porsche TP PRN TID PRN Novolog Flexpen (Insulin Aspart) 100 Unit/1 Ml Insuln.pen 25 Unit SQ DAILYBFRLUN Novolog Flexpen (Insulin Aspart) 100 Unit/1 Ml Insuln.pen 15 Unit SQ DAILYWSUP Novolog Flexpen (Insulin Aspart) 100 Unit/1 Ml Insuln.pen 10 Unit SQ DAILYWBKFT [IBgard pepermint oil] 90mg Cap 90 Mg PO TIDWMEALS Omeprazole 20 Mg Capsule.dr 20 Mg PO DAILY06 Seroquel (Quetiapine Fumarate) 25 Mg Tablet 25 Mg PO PRN Q2HR PRN Quetiapine Fumarate 25 Mg Tablet 25 Mg PO TID Trazodone Hcl 50 Mg Tablet 50 Mg PO TIDWMEALS Clonazepam 0.5 Mg Tablet 0.5 Mg PO BID@1200,2100 Calmoseptine Ointment (Menthol/Zinc Oxide) 71 Gm Oint...g. 1 Porsche TP PRN PRN Anusol-Hc (Hydrocortisone Acetate) 25 Mg Supp.rect 25 Mg RC PRN DAILY PRN Probiotic (Lactobacillus Acidophilus) 1 Each Capsule 1 Cap PO BID Lantus (Insulin Glargine,Hum.rec.anlog) 100 Unit/1 Ml Vial 45 Units SQ QHS Analgesic [place] (Methyl Salicylate/Menthol) 29 Gm Oint...g. 1 Porsche TP PRN QID PRN Mag-Al Plus Xs Suspension (Mag Hydrox/Al Hydrox/Simeth) 30 Ml Oral.susp 15 Ml PO PRN BFRMEALHC PRN Levothyroxine Sodium 25 Mcg Tablet 25 Mcg PO DAILY06 Melatonin 5 Mg Tablet 5 Mg PO PRN QHS PRN Colace (Docusate Sodium) 100 Mg Capsule 100 Mg PO PRN BID PRN Hold for Loose stools Milk Of Magnesia (Magnesium Hydroxide) 400 Mg/5 Ml Oral.susp 2,400 Mg PO PRN QHS PRN Vitamin D3 (Cholecalciferol (Vitamin D3)) 50,000 Unit Capsule 50,000 Unit PO QMONTH Administer on the of every Month Zestril (Lisinopril) 10 Mg Tablet 10 Mg PO DAILY Hold for SBP less than 100. After a held dose, reassess in 2 hours. If SBP is above threshold admminister dose as ordered. If SBP is below threshold, contact provider for additional instructions Oyster Shell Calcium (Calcium Carbonate) 500 Mg Tablet 1,000 Mg PO DAILY Multivitamins (Multivitamin) 1 Each Tablet 1 Tab PO DAILYWSUP Fenofibrate 54 Mg Tablet 54 Mg PO QHS I have reviewed the current psychotropics carefully including drug interactions. Risk benefit ratio favors no change other than as noted in my dictated progress note. Diagnosis: Problems: (1) Anxiety (2) Dementia (3) Impulse control disorder (4) Obsessive compulsive disorder (5) Medical clearance for psychiatric admission (6) Mood disorder (7) IMPULSE DISORDER, UNSPECIFIED (8) Impulse control disorder (9) DMII (diabetes mellitus, type 2) (10) Intellectual disability IDA LAINEZ MD Dec 25, 2017 22:20
[2017-12-26 05:56] VITALS: BP 117/72
[2017-12-26] MEDS: LEVOTHYROXINE 25 MCG TABLET. PO SCH (06:17)
[2017-12-26 08:01] VITALS: BP 117/72
[2017-12-26] MEDS: QUEtiapine 25 MG TABLET. PO SCH ×2 (08:01→13:40)
[2017-12-26] MEDS: CALCIUM CARBONATE 500 MG TABLET PO SCH (08:01)
[2017-12-26] MEDS: LACTOBACILLUS RHAMNOSUS GG 1 CAPSULE. PO SCH (08:01)
[2017-12-26] MEDS: LISINOPRIL 5 MG TABLET. PO SCH (08:01)
[2017-12-26] MEDS: PANTOPRAZOLE 40 MG TABLET. PO SCH (08:01)
[2017-12-26] MEDS: traZODone 50 MG TABLET. PO SCH ×2 (08:01→12:04)
[2017-12-26] MEDS: NYSTATIN TOPICAL POWDER 15GM BOTTLE. TP SCH (08:02)
[2017-12-26] MEDS: INSULIN ASPART 300 UNITS/3 ML INSULN.PEN SQ SCH ×2 (08:03→12:05)
[2017-12-26] MEDS: clonazePAM 0.5 MG TABLET PO SCH (12:04)
--- NOTE | 2017-12-27 00:45 | PN ---
DATE: 12/25/2017 PSYCHIATRIC PROGRESS NOTE This is a late entry for 12/25/2017, covers elements not covered in my initial note of 12/25/2017. SUBJECTIVE: I met with the patient in the evening of 12/25/2017. The patient slept 7 hours previous evening. Remains quite anxious, obsessive, less fixated on discharge plans, easier to redirect. REVIEW OF SYSTEMS: Ambulation impaired with walker. No CV, , pulmonary, eye system symptoms on review. MENTAL STATUS EXAM: Oriented to herself and situation. Speech coherent, abstraction fair, repetitive. Insight limited, judgment marginal, language function intact. Mood and affect remains anxious, labile, but improved. LABORATORY DATA: Reviewed. IMPRESSION: Unchanged from initial note. PLAN: Continue current psychotropics. MAN Stuart LAINEZ MD DR: YO/bakari JOB#: [id number] / [id number]
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
[2018-01-07] MEDS ORDERED: CHOLECALCIFEROL (VITAMIN D3) 50,000 UNIT CAPSULE PO SCH (09:00)
== END 2017-12-26 14:15 | disposition home or self-care (01) | DRG 885 ==
LOC: EEVIPCON 17:15 → ER 17:15 → GEROPSY 21:24
PROVIDERS: ADMIT Psychiatry & Neurology Psychiatry; ATTEND Psychiatry & Neurology Psychiatry
DX: F31.64 Bipolar disorder, current episode mixed, severe, with psychotic features (principal); F03.91 Unspecified dementia, unspecified severity, with behavioral disturbance; E11.9 Type 2 diabetes mellitus without complications; E83.42 Hypomagnesemia; N39.0 Urinary tract infection, site not specified; E03.9 Hypothyroidism, unspecified; E66.9 Obesity, unspecified; E78.5 Hyperlipidemia, unspecified; F41.9 Anxiety disorder, unspecified; F42.9 Obsessive-compulsive disorder, unspecified; F63.9 Impulse disorder, unspecified; G47.00 Insomnia, unspecified; I10 Essential (primary) hypertension; K21.9 Gastro-esophageal reflux disease without esophagitis; K59.09 Other constipation; L40.9 Psoriasis, unspecified; Z79.899 Other long term (current) drug therapy; Z68.35 Body mass index [BMI] 35.0-35.9, adult; Z85.3 Personal history of malignant neoplasm of breast
CPT/HCPCS: 36415; 80053; 80061; 80164; 81001; 82306; 82607; 82947; 83036; 83540; 83550; 83735; 84436; 84443; 84480; 85025; 86593; 87086; 87186; 93005; J1815; 97110; 97116; 97530; 99285-25

== ENCOUNTER 2018-05-02 21:31 | Inpatient (IN) | payer MEDICARE, OTHER ==
[~2018-05-02] VITALS: Ht 165.1 cm; Wt 84.6 kg
[~2018-05-02 21:31] MED LIST changes: +CLON0.5T11 PO; -CLON0.5T3 PO; +FLUV100T2 PO; +LACT1CAP2 PO; +LISI-338 PO; +NYST60PO TP; +OLAN5TAB9 PO; +OMEP20CA9 PO; +PEPPERMINT OIL PO; +QUET25TA PO; +TRAZ-85 PO; -TRAZ50TA15 PO; +TRIA15CR50 TP
--- NOTE | 2018-05-02 21:43 | PHYS DOC ---
Past History Past Medical History: Bipolar, Dementia, Diabetes, GERD, Other Past Surgical History: Other Alcohol Use: None Drug Use: None Social History Narrative: lives in a nursing facility Adult General Chief Complaint Chief Complaint: HYPERGLYCEMIA HPI HPI The patient is a 72-year-old female who arrives in the emergency department via EMS from her nursing facility in [place]. According to EMS report, the patient has been having increasing combativeness and behavioral disturbances at the facility refusing her medications. They sent her here for a geriatric psychiatric evaluation and hospitalization. The patient denies any complaints of pain at this time. She is oriented to person only. She does answer questions and follow some basic commands. She has not had any shortness of breath, chest pain, abdominal pain, vomiting, headache, or recent trauma. EMS reports the patient is ambulatory at baseline. There are no alleviating or exacerbating factors to her symptoms. Review of Systems Review of Systems Constitutional: Denies fever or chills [] Eyes: Denies change in visual acuity, redness, or eye pain [] HENT: Denies nasal congestion or sore throat [] Respiratory: Denies cough or shortness of breath [] Cardiovascular: The patient denies any shortness of breath, chest pain, palpitations, or orthopnea [] GI: Denies abdominal pain, nausea, vomiting, bloody stools or diarrhea [] : Denies dysuria or hematuria [] Musculoskeletal: Denies back pain or joint pain [] Integument: Denies rash or skin lesions [] Neurologic: Denies headache, focal weakness or sensory changes [] Endocrine: Denies polyuria or polydipsia [] All other systems were reviewed and found to be within normal limits, except as documented in this note. Allergies Allergies Allergies Coded Allergies Type Severity Reaction Last Updated Verified No Known Drug Allergies 12/29/15 No Physical Exam Physical Exam PHYSICAL EXAM: CONSTITUTIONAL: Well developed, well nourished HEAD: normocephalic, atraumatic EENT: PERRL, EOMI. Conjunctivae normal color, sclerae non-icteric; moist mucous membranes. NECK: Supple, non-tender; no meningismus. LUNGS: Lungs CTA, breathing even and unlabored. Normal air movement. HEART: Regular rate and rhythm, no murmur CHEST: No deformity; non-tender ABDOMEN: The abdomen is soft, and non-tender, no masses or bruits. EXTREM: Normal ROM; no deformity, no calf tenderness. Normal pulses palpable in all extremities. There is no pedal edema. SKIN: No rash; no diaphoresis NEURO: Alert; normal speech impaired cognition consistent with underlying dementia ; CN's grossly intact; strength grossly intact without focal deficit. BACK: No CVA TTP. EKG EKG [Normal sinus rhythm at a rate of 97 bpm, ] leftward axis, normal intervals, there are no acute ischemic ST/T changes. Radiology/Procedures Radiology/Procedures [] Course & Med Decision Making Course & Med Decision Making Pertinent Labs and Imaging studies reviewed. (See chart for details) [The patient's creatinine is noted to be 2.1, her BUNs 55. She had normal renal function the last time she was here, in December. I spoke with Dr. Rivera, hospitalist, who will admit the patient for IV hydration, and behavioral disposition on the patient's medical stable.] Dragon Disclaimer Dragon Disclaimer This electronic medical record was generated, in whole or in part, using a voice recognition dictation system. Departure Departure: Impression: Primary Impression: Dehydration Additional Impressions: Acute renal failure Dementia with behavioral disturbance Disposition: ADMITTED INPATIENT Admitting Physician: Vicky Rivera Condition: STABLE Referrals: YOLANDA LYNNE JR, MD (PCP) Problem Qualifiers KAY CONTRERAS MD May 02, 2018 21:42
[2018-05-02 22:31] LABS: BASO # 0.2 x10^3/uL (0.0-0.2); BASO % 1 % (0-3); EOS # 0.2 x10^3/uL (0.0-0.7); EOS % 2 % (0-3); HEMATOCRIT 34.5 % (36.0-47.0); HEMOGLOBIN 11.9 g/dL (12.0-15.5); LYMPH # 3.8 x10^3/uL (1.0-4.8); LYMPH % 29 % (24-48); MEAN CORPUSCULAR HEMOGLOBIN 31 pg (25-35); MEAN CORPUSCULAR HGB CONC 34 g/dL (31-37); MEAN CORPUSCULAR VOLUME 89 fL (79-100); MONO # 0.6 x10^3/uL (0.0-1.1); MONO % 5 % (0-9); NEUT # 8.5 x10^3uL (1.8-7.7); NEUT % 64 % (31-73); PLATELET COUNT 165 x10^3/uL (140-400); RED BLOOD COUNT 3.89 x10^6/uL (3.50-5.40); WHITE BLOOD COUNT 13.4 x10^3/uL (4.0-11.0)
[2018-05-02 22:46] LABS: ALBUMIN 3.5 g/dL (3.4-5.0); ALK PHOS 75 U/L (46-116); ALT (SGPT) 33 U/L (14-59); ANION GAP 9 (6-14); AST (SGOT) 30 U/L (15-37); BLOOD UREA NITROGEN 50 mg/dL (7-20); BUN/CREATININE RATIO 24 (6-20); CALCIUM 8.6 mg/dL (8.5-10.1); CARBON DIOXIDE 25 mmol/L (21-32); CHLORIDE 100 mmol/L (98-107); CREATININE 2.1 mg/dL (0.6-1.0); GFR 23.2; GLUCOSE 165 mg/dL (70-99); MAGNESIUM 1.6 mg/dL (1.8-2.4); POTASSIUM 4.5 mmol/L (3.5-5.1); SODIUM 134 mmol/L (136-145); TOTAL BILIRUBIN 0.4 mg/dL (0.2-1.0); TOTAL PROTEIN 6.9 g/dL (6.4-8.2)
[2018-05-02] MEDS ORDERED: IV NORMAL SALINE 1,000ML 1,000 ML IV ONE ×2 (23:30→23:45)
[2018-05-03 01:00] VITALS: BP 108/72
[2018-05-03] MEDS ORDERED: NYSTATIN TOPICAL POWDER 15GM BOTTLE. TP PRN (01:30)
[2018-05-03] MEDS ORDERED: HYDROCORTISONE ACETATE 25 MG SUPP.RECT PR PRN (02:30)
[2018-05-03 06:00] VITALS: BP 105/70
--- NOTE | 2018-05-03 06:01 | EKG ---
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
[2018-05-03 06:39] LABS: BASO % 0 % (0-3); EOS # 0.3 x10^3/uL (0.0-0.7); EOS % 3 % (0-3); HEMATOCRIT 35.7 % (36.0-47.0); HEMOGLOBIN 12.2 g/dL (12.0-15.5); LYMPH # 3.7 x10^3/uL (1.0-4.8); LYMPH % 36 % (24-48); MEAN CORPUSCULAR HEMOGLOBIN 31 pg (25-35); MEAN CORPUSCULAR HGB CONC 34 g/dL (31-37); MEAN CORPUSCULAR VOLUME 89 fL (79-100); MONO # 0.5 x10^3/uL (0.0-1.1); MONO % 5 % (0-9); NEUT # 5.6 x10^3uL (1.8-7.7); NEUT % 55 % (31-73); PLATELET COUNT 143 x10^3/uL (140-400); RED BLOOD COUNT 4.01 x10^6/uL (3.50-5.40); WHITE BLOOD COUNT 10.1 x10^3/uL (4.0-11.0)
[2018-05-03 06:52] LABS: ALBUMIN 3.3 g/dL (3.4-5.0); CALCIUM 8.6 mg/dL (8.5-10.1); CREATININE 1.4 mg/dL (0.6-1.0); GFR 37.1; POTASSIUM 4.1 mmol/L (3.5-5.1); TOTAL BILIRUBIN 0.4 mg/dL (0.2-1.0); TOTAL PROTEIN 6.6 g/dL (6.4-8.2)
[2018-05-03] MEDS: LEVOTHYROXINE 25 MCG TABLET. PO SCH (07:00)
[2018-05-03] MEDS: PANTOPRAZOLE 40 MG TABLET. PO SCH (07:30)
[2018-05-03] MEDS ORDERED: INSULIN LISPRO 300 UNITS/3 ML INSULN.PEN. SQ SCH ×3 (08:00→17:00)
[2018-05-03] MEDS: IV NORMAL SALINE 1,000ML 1,000 ML IV SCH ×3 (08:00→21:23)
[2018-05-03] MEDS: traZODone 50 MG TABLET. PO SCH ×3 (08:00→18:13)
[2018-05-03] MEDS: LORazepam 2 MG/ML VIAL IV PRN ×2 (08:35→18:16)
[2018-05-03] MEDS: NYSTATIN TOPICAL POWDER 15GM BOTTLE. TP SCH ×2 (09:00→21:00)
[2018-05-03] MEDS: LACTOBACILLUS RHAMNOSUS GG 1 CAPSULE. PO SCH ×2 (09:00→21:05)
[2018-05-03] MEDS: LISINOPRIL 5 MG TABLET. PO SCH (09:00)
[2018-05-03] MEDS: QUEtiapine 25 MG TABLET. PO SCH ×2 (09:00→21:05)
[2018-05-03 09:35] LABS: BILIRUBIN,URINE NEG (NEG); CLARITY,URINE HAZY; COLOR,URINE STRAW; GLUCOSE,URINE 100 mg/dL (NEG)
[2018-05-03 09:36] LABS: BACTERIA,URINE FEW /HPF (0-FEW); NITRITE,URINE NEG (NEG); RBC,URINE 0 /HPF (0-2); SQUAMOUS EPITHELIAL CELL,UR FEW /LPF; UROBILINOGEN,URINE 0.2 mg/dL (0.2 mg/dL); WBC,URINE 20-40 /HPF (0-4)
[2018-05-03] MEDS ORDERED: HALOPERIDOL LACT 5 MG/ML VIAL. IM PRN (09:45)
--- NOTE | 2018-05-03 10:15 | HP ---
ADMIT DATE: 05/03/2018 HISTORY OF PRESENT ILLNESS: The patient is a 72-year-old female patient, a resident at [facility], who was seen in the Emergency Room of [facility] with a plan to admit her to [facility]. She apparently has had dementia with behavioral disturbances. In the longterm she has been throwing plates, slapping other residents, threatening to stab staff, calling people names. All this in a background of dementia. PAST MEDICAL HISTORY: Significant for hypertension, hyperlipidemia, type 2 diabetes, hypothyroidism. She is also known to have psoriasis. PAST PSYCHIATRIC HISTORY: Significant for dementia with impulse control disorder. FAMILY HISTORY: Unobtainable. SOCIAL HISTORY: She is a resident at [facility]. She does not smoke, drink alcohol or use any drugs. REVIEW OF SYSTEMS: As per history of present illness. ALLERGIES: She has no known drug allergies. MEDICATIONS: She is currently on following medications: She is on fenofibrate for TriCor 48 mg once a day, lisinopril 5 mg once a day, clonazepam 0.5 mg twice a day, fluvoxamine maleate 100 mg at bedtime, trazodone 50 mg 3 times a day with meals. She is on Haldol 5 mg/mL intramuscular every 6 hours as needed, Seroquel 25 mg twice a day, lorazepam 2 mg per 1 mL 0.5 mg IV every 4 hours. She is on normal saline, Protonix 40 mg daily, lactobacillus rhamnosus 1 capsule twice a day. She is on Lantus insulin 45 units subcutaneously at bedtime, Humalog 25 units daily before lunch and 15 units daily before supper and 10 units daily before breakfast. She is on levothyroxine 25 mcg daily, Nystatin powder topically 3 times a day, hydrocortisone acetate for Anucort daily p.r.n., vitamin D cholecalciferol 50,000 international units every month. PHYSICAL EXAMINATION: GENERAL: On arrival to the Emergency Room, she looked well and was clearly in no apparent respiratory distress, slightly pale, no jaundice, cyanosis, or thyromegaly. No jugular venous distension. No limb edema. VITAL SIGNS: Her heart rate was 100, blood pressure 104/81, temperature was 98.3, respiratory rate 20, and oxygen saturation was 95% on room air. HEAD, EYES, EARS, NOSE AND THROAT: Showed normocephalic, atraumatic. NECK: Supple. HEART: Showed normal first and second sounds. No gallop, rub or murmur. CHEST: Clear to auscultation. No crepitation or rhonchi. ABDOMEN: Distended, soft, nontender. NEUROLOGIC: She is demented without any obvious lateralizing signs. All cranial nerves intact. EXTREMITIES: She moves extremities without difficulty. She is mostly bedbound, chair bound. LABORATORY DATA: On admission showed a white cell count 13,400, hemoglobin 11.9, hematocrit 34.5, MCV 89 and platelet count of 165,000 with normal manual differential. Serum sodium 134, potassium 4.5, chloride 100, bicarbonate 25, anion gap of 9, BUN 50, creatinine 2.1, estimated GFR was 23 mL per minute. Her glucose was 165, calcium was 8.6, magnesium was 1.6. Total bilirubin, AST, ALT, alkaline phosphatase were normal. Total protein 6.9, albumin was 3.5. Her urinalysis showed the urine was straw colored, hazy with a pH of 6, specific gravity of 1.010. Urine was negative for protein. There is a large amount of glucose, negative for ketones, trace amount of blood, negative for nitrite, small amount of leukocyte esterase, 0 rbc's, 20-40 wbc's, and very few bacteria. Her toxic screen was unremarkable. IMPRESSION: In summary, this is a 72-year-old female patient, resident at [facility], who was supposed to go to [facility] on account of increasing combativeness and behavioral disturbances at the facility, refusing her medication. While in the Emergency Room, she was found to have markedly impaired kidney function, marked dehydration and therefore the patient was admitted to [address] [place] [address] for gentle rehydration. Once stabilized, she can be transferred upstairs if she qualifies for inpatient psychiatric stabilization. FELISHA PITT MD DR: NAHID/bakari JOB#: [id number] / [id number]
[2018-05-03] MEDS: HALOPERIDOL LACT 5 MG/ML VIAL. IVP PRN ×2 (11:00→19:20)
[2018-05-03 11:14] VITALS: BP 117/74
[2018-05-03] MEDS: clonazePAM 0.5 MG TABLET PO SCH ×2 (12:00→21:05)
[2018-05-03] MEDS ORDERED: DEXTROSE 50% 25 GM / 50ML DISP.SYRIN. IV PRN (13:00)
[2018-05-03] MEDS: INSULIN LISPRO 300 UNITS/3 ML INSULN.PEN. SQ SCH ×2 (16:30→21:00)
[2018-05-03 19:56] VITALS: BP 109/68
[2018-05-03] MEDS ORDERED: FENOFIBRATE NANOCRYSTALLIZED 48 MG TABLET PO SCH (21:00)
[2018-05-03] MEDS ORDERED: INSULIN GLARGINE 300 UNITS/3 ML INSULN.PEN. SQ SCH (21:00)
--- NOTE | 2018-05-03 22:55 | PN ---
DATE: 05/03/2018 SUBJECTIVE: The patient is resting, slightly propped up in her recliner, continued to be yelling and insisting she wants to go home. She was seen yesterday in the Emergency Room, was found to have acute kidney injury for which she was started on IV fluid. Her lab work is actually improving. Her BUN is down to 42, creatinine is down to 1.4 from 2.1. PHYSICAL EXAMINATION: GENERAL: When I examined her, she looked well and was clearly in no apparent respiratory distress, slightly pale. No jaundice, cyanosis or thyromegaly. No jugular venous distention. No limb edema. VITAL SIGNS: Her heart rate was 75, blood pressure 105/78, temperature was 97.4, respiratory rate was 20, and oxygen saturation was 95%. HEAD, EYES, EARS, NOSE AND THROAT: Normocephalic, atraumatic. NECK: Supple. HEART: Showed normal first and second heart sounds. No gallop, rub or murmur. CHEST: Clear to auscultation. No crepitation or rhonchi. ABDOMEN: Distended, soft, nontender. No guarding or rigidity. No organomegaly. Hernial orifice intact. Bowel sounds normal. NEUROLOGIC: She was awake and alert. All her cranial nerves are grossly intact. She moves upper extremities to much good extent than lower extremities. She is mostly bedbound, chair bound. Her intake and output are incompletely recorded. LABORATORY DATA: Her lab work this morning showed a white cell count of 10,000, hemoglobin 12, hematocrit 36, MCV and 89 and platelet count of 143,000. Her chemistry showed serum sodium 136, potassium 4.1, chloride 102, bicarbonate 25, anion gap of 9, BUN 42, creatinine 1.4, estimated GFR was 67 mL per minute. Her glucose was 133, calcium was 8.6. Total bilirubin, AST, ALT, alkaline phosphatase were normal. Her ammonia is less than 10. Total protein 6.6, albumin 3.3. ASSESSMENT: Acute kidney injury, improving. Her BUN and creatinine are trending down. Her creatinine this morning is 1.4. She has multiple other medical problems including: A. Hypertension. B. Type 2 diabetes. C. Hyperlipidemia. D. Hypothyroidism. E. Psoriasis. PLAN: To continue with IV fluid, continue with nutritional support. We will consult Dr. Marvin to see her and if her kidney function returns back to normal tomorrow, she can be [facility] FELISHA PITT MD DR: NAHID/bakari JOB#: [id number] / [id number]
[2018-05-04] MEDS: IV NORMAL SALINE 1,000ML 1,000 ML IV SCH ×2 (03:15→11:15)
[2018-05-04 05:38] VITALS: BP 139/67
[2018-05-04] MEDS: INSULIN LISPRO 300 UNITS/3 ML INSULN.PEN. SQ SCH ×2 (07:30→11:30)
[2018-05-04 07:47] LABS: CALCIUM 8.6 mg/dL (8.5-10.1); CREATININE 0.9 mg/dL (0.6-1.0); GFR 61.7; POTASSIUM 4.2 mmol/L (3.5-5.1)
[2018-05-04] MEDS: PANTOPRAZOLE 40 MG TABLET. PO SCH (10:13)
[2018-05-04 10:14] VITALS: BP 139/67
[2018-05-04] MEDS: QUEtiapine 25 MG TABLET. PO SCH (10:14)
[2018-05-04] MEDS: traZODone 50 MG TABLET. PO SCH ×2 (10:14→14:48)
[2018-05-04] MEDS: LEVOTHYROXINE 25 MCG TABLET. PO SCH (10:14)
[2018-05-04] MEDS: LACTOBACILLUS RHAMNOSUS GG 1 CAPSULE. PO SCH (10:14)
[2018-05-04] MEDS: LISINOPRIL 5 MG TABLET. PO SCH (10:14)
[2018-05-04] MEDS: NYSTATIN TOPICAL POWDER 15GM BOTTLE. TP SCH (10:15)
--- NOTE | 2018-05-04 14:43 | PDOC ---
Exam Note: Marcelo Note: Please also refer to the separate dictated note~for this date of service dictated separately.~Patient seen individually. Discussed the patient with Nursing staff reviewed the chart.~Reviewed interim history and current functioning. Reviewed vital signs,~Labs/ Radiology~and current medications noted below. Continue current treatment with the changes noted in the dictated addendum note. late entry for 05/03/18 Assessment: Vital Signs: VS - Last 72 Hours, by Label Date Time Temp Pulse Resp B/P (MAP) Pulse Ox O2 Delivery O2 Flow Rate FiO2 05/04/18 10:14 75 139/67 05/04/18 05:38 97.5 75 18 139/67 (91) 97 Room Air 05/04/18 00:18 16 Room Air 05/03/18 20:00 Room Air 05/03/18 19:56 97.8 87 18 109/68 (82) 94 Room Air 05/03/18 11:14 97.7 98 18 117/74 (88) 92 Room Air 05/03/18 09:00 98 117/74 05/03/18 08:00 Room Air 05/03/18 06:00 97.4 75 105/70 (82) 95 Room Air 05/03/18 01:00 97.9 80 108/72 (84) 95 Room Air 05/02/18 23:44 100 20 104/81 (89) 95 Room Air 05/02/18 21:43 98.3 100 20 95 Room Air Vital Signs Date Time Temp Pulse Resp B/P (MAP) Pulse Ox O2 Delivery O2 Flow Rate FiO2 05/04/18 10:14 75 139/67 05/04/18 05:38 97.5 18 97 Room Air I&O Intake and Output 05/04/18 07:00 Intake Total 3144 ml Balance 3144 ml Intake Oral 150 ml IV Total 2994 ml # Voids 5 # Bowel Movements 1 Labs: Laboratory Tests Test 05/03/18 18:15 05/03/18 21:04 05/04/18 07:22 05/04/18 10:19 Glucose (Fingerstick) 170 mg/dL (70-99) H 152 mg/dL (70-99) H 140 mg/dL (70-99) H Sodium Level 140 mmol/L (136-145) Potassium Level 4.2 mmol/L (3.5-5.1) Chloride Level 107 mmol/L (98-107) Carbon Dioxide Level 26 mmol/L (21-32) Anion Gap 7 (6-14) Blood Urea Nitrogen 19 mg/dL (7-20) Creatinine 0.9 mg/dL (0.6-1.0) Estimated GFR (Cockcroft-Gault) 61.7 Glucose Level 150 mg/dL (70-99) H Calcium Level 8.6 mg/dL (8.5-10.1) Test 05/04/18 11:53 Glucose (Fingerstick) 181 mg/dL (70-99) H Current Medications: Meds: Current Medications Sodium Chloride 1,000 ml @ 1,000 mls/hr 1X ONCE IV Last administered on at 23:34; Start 05/02/18 at 23:30; Stop 05/03/18 at 00:29; Status DC Sodium Chloride 1,000 ml @ 125 mls/hr 1X ONCE IV Last administered on at 00:30; Start 05/02/18 at 23:45; Stop 05/03/18 at 07:44; Status DC Vitamin D (Vitamin D3) 50,000 unit QMONTH PO ; Start 05/29/18 at 09:00 Clonazepam (KlonoPIN) 0.5 mg BID@1200,2100 PO Last administered on 05/03/18at 21 :05; Start 05/03/18 at 12:00 Nystatin (Nystop) 1 porsche BID TP Last administered on 05/04/18at 10:15; Start at 09:00 Nystatin (Nystop) 1 porsche PRN TID PRN TP RASH; Start 05/03/18 at 01:30 Fenofibrate (Tricor) 48 mg QHS PO Last administered on 05/03/18at 21:05; Start 05/03/18 at 21:00 Fluvoxamine Maleate (Luvox) 100 mg QHS PO Last administered on 05/03/18at 21:05 ; Start 05/03/18 at 21:00 Hydrocortisone Acetate (Anucort-Hc) 25 mg PRN DAILY PRN NM RECTAL PAIN; Start 05/03/18 at 02:30 Insulin Human Lispro (HumaLOG) 10 units DAILYWBKFT SQ ; Start 05/03/18 at 08:00 ; Stop 05/03/18 at 12:54; Status DC Insulin Human Lispro (HumaLOG) 15 units DAILYWSUP SQ ; Start 05/03/18 at 17:00; Stop 05/03/18 at 17:00; Status DC Insulin Human Lispro (HumaLOG) 25 units DAILYWLUN SQ ; Start 05/03/18 at 12:00; Stop 05/03/18 at 12:54; Status DC Insulin Glargine (Lantus) 45 units QHS SQ ; Start 05/03/18 at 21:00; Stop at 21:00; Status DC Lactobacillus Rhamnosus (Culturelle) 1 cap BID PO Last administered on at 10:14; Start 05/03/18 at 09:00 Levothyroxine Sodium (Synthroid) 25 mcg DAILY07 PO Last administered on at 10:14; Start 05/03/18 at 07:00 Lisinopril (Prinivil) 5 mg DAILY PO Last administered on 05/04/18at 10:14; Start 05/03/18 at 09:00 Pantoprazole Sodium (Protonix) 40 mg DAILYAC PO Last administered on 05/04/18at 10:13; Start 05/03/18 at 07:30 Quetiapine Fumarate (SEROquel) 25 mg BID PO Last administered on 05/04/18at 10: 14; Start 05/03/18 at 09:00 Trazodone HCl (Desyrel) 50 mg TIDWMEALS PO Last administered on 05/04/18at 10:14 ; Start 05/03/18 at 08:00 Sodium Chloride 1,000 ml @ 125 mls/hr Q8H IV Last administered on 05/04/18at 11 :15; Start 05/03/18 at 03:15 Lorazepam (Ativan) 0.5 mg PRN Q4HRS PRN IV ANXIETY / AGITATION Last administered on 05/03/18at 18:16; Start 05/03/18 at 07:30 Haloperidol Lactate (Haldol) 5 mg PRN Q6HRS PRN IM AGITATION; Start 05/03/18 at 09:45; Stop 05/03/18 at 10:54; Status DC Haloperidol Lactate (Haldol) 5 mg PRN Q6HRS PRN IVP AGITATION Last administered on 05/03/18at 19:20; Start 05/03/18 at 11:00 Insulin Human Lispro (HumaLOG) 0-7 UNITS QIDACHS SQ ; Start 05/03/18 at 16:30 Dextrose 12.5 gm PRN Q15MIN PRN IV SEE COMMENTS; Start 05/03/18 at 13:00 Active Scripts Active Reported Olanzapine 5 Mg Tablet 2.5 Mg PO PRN Q2HR PRN Fluvoxamine Maleate 100 Mg Tablet 100 Mg PO HS Seroquel (Quetiapine Fumarate) 25 Mg Tablet 25 Mg PO BID Seroquel (Quetiapine Fumarate) 25 Mg Tablet 37.5 Mg PO DAILY@1400 Nystop (Nystatin) 60 Gm Powder 1 Porsche TP BID Lisinopril 5 Mg Tablet 5 Mg PO DAILY Triamcinolone Acetonide 15 Gm Cream..g. 1 Porsche TP PRN TID PRN Nystop (Nystatin) 60 Gm Powder 1 Porsche TP PRN TID PRN Novolog Flexpen (Insulin Aspart) 100 Unit/1 Ml Insuln.pen 25 Unit SQ DAILYBFRLUN Novolog Flexpen (Insulin Aspart) 100 Unit/1 Ml Insuln.pen 15 Unit SQ DAILYWSUP Novolog Flexpen (Insulin Aspart) 100 Unit/1 Ml Insuln.pen 10 Unit SQ DAILYWBKFT [IBgard pepermint oil] 90mg Cap 90 Mg PO TIDWMEALS Omeprazole 20 Mg Capsule.dr 20 Mg PO DAILY06 Seroquel (Quetiapine Fumarate) 25 Mg Tablet 25 Mg PO PRN Q2HR PRN Trazodone Hcl 50 Mg Tablet 50 Mg PO TIDWMEALS Clonazepam 0.5 Mg Tablet 0.5 Mg PO BID@1200,2100 Calmoseptine Ointment (Menthol/Zinc Oxide) 71 Gm Oint...g. 1 Porsche TP PRN PRN Anusol-Hc (Hydrocortisone Acetate) 25 Mg Supp.rect 25 Mg RC PRN DAILY PRN Probiotic (Lactobacillus Acidophilus) 1 Each Capsule 1 Cap PO BID Lantus (Insulin Glargine,Hum.rec.anlog) 100 Unit/1 Ml Vial 45 Units SQ QHS Analgesic [place] (Methyl Salicylate/Menthol) 29 Gm Oint...g. 1 Porsche TP PRN QID PRN Mag-Al Plus Xs Suspension (Mag Hydrox/Al Hydrox/Simeth) 30 Ml Oral.susp 15 Ml PO PRN BFRMEALHC PRN Levothyroxine Sodium 25 Mcg Tablet 25 Mcg PO DAILY06 Melatonin 5 Mg Tablet 5 Mg PO PRN QHS PRN Colace (Docusate Sodium) 100 Mg Capsule 100 Mg PO PRN BID PRN Hold for Loose stools Milk Of Magnesia (Magnesium Hydroxide) 400 Mg/5 Ml Oral.susp 2,400 Mg PO PRN QHS PRN Vitamin D3 (Cholecalciferol (Vitamin D3)) 50,000 Unit Capsule 50,000 Unit PO QMONTH Administer on the 15th of every Month Oyster Shell Calcium (Calcium Carbonate) 500 Mg Tablet 1,000 Mg PO DAILY Multivitamins (Multivitamin) 1 Each Tablet 1 Tab PO DAILYWSUP Fenofibrate 54 Mg Tablet 54 Mg PO QHS I have reviewed the current psychotropics carefully including drug interactions. Risk benefit ratio favors no change other than as noted in my dictated progress note. Diagnosis: Problems: (1) Intellectual disability (2) Dementia with behavioral disturbance (3) Obsessive compulsive disorder (4) Impulse control disorder (5) Anxiety IDA LAINEZ MD May 04, 2018 14:43
[2018-05-04] MEDS: clonazePAM 0.5 MG TABLET PO SCH (14:48)
[2018-05-04] MEDS ORDERED: FENO48TA2 PO (16:43)
[2018-05-04] MEDS ORDERED: PANT40TA3 PO (16:43)
[2018-05-04] MEDS ORDERED: INSU100I11 SQ ×2 (16:45→18:04)
[2018-05-04] MEDS ORDERED: INSU100C SQ (16:46)
--- NOTE | 2018-05-04 20:56 | PN ---
DATE: 05/04/2018 SUBJECTIVE: The patient is a 72-year-old female patient who was admitted to the Emergency Room with an acute kidney injury. Her creatinine was 2.1 and BUN was on admission was 50. She was started on IV fluid and her kidney function has steadily improved such that her BUN today is 19 and a creatinine was down to 0.9 mg/dL. Her blood sugar is stable. The patient herself denied any complaint; however, we have sent information to the [facility] to see whether she qualifies to be admitted for inpatient psychiatric stabilization as she was transferred from [facility], on the account of increasing agitation, throwing plates, slapping other residents, threatening to stab staff, calling people names, all this in a background of dementia. OBJECTIVE: GENERAL: When I saw her today, she was resting slightly propped up in bed, in no apparent respiratory distress. She is awake, alert, seems to be much calmer and quieter. There is no restlessness or agitation. She was slightly pale, but no jaundice, cyanosis, or thyromegaly. No jugular venous distension. No limb edema. VITAL SIGNS: Her heart rate was 75, blood pressure was 139/67, temperature was 97.5, respiratory rate was 18, and oxygen saturation was 97%. The rest of clinical examination is unremarkable, has not really changed. Her intake over the last 24 hours was 3100, no output was recorded. LABORATORY DATA: This morning showed a serum sodium 140, potassium 4.2, chloride 107, bicarbonate 26, anion gap of 7, BUN 19, creatinine 0.9, estimated GFR was 62 mL per minute, his glucose 150, and calcium was 8.6. His white cell count was 10,000, hemoglobin 12, hematocrit 36, MCV 89, and platelet count of 143,000. Her urinalysis showed the urine was negative for nitrite. There is small amount of leukocyte esterase and 20-40 wbc's, but very few bacteria. ASSESSMENT: 1. Acute kidney injury, improving. Her BUN is 19, creatinine 0.9 mg/dL. 2. Other medical problems include, a.) Hypertension, seems to be well controlled. b.) Type 2 diabetes mellitus, reasonably controlled. c.) Hyperlipidemia. d.) Hypothyroidism and she is both clinically and biochemically euthyroid. e.) Psoriasis. PLAN: To wait for evaluation by the [facility] to see whether she qualifies go to the [facility]. FELISHA PITT MD DR: NAHID/bakari JOB#: [id number] / [id number]
--- NOTE | 2018-05-04 21:45 | CONS ---
DATE OF CONSULTATION: 05/03/2018 PSYCHIATRIC CONSULTATION This late entry date of service 05/03/2018 covers elements not covered in my initial note 05/03/2018. IDENTIFYING DATA: I met with the patient in the evening, previously discussed with nursing staff on 3 or 4 occasions, once prior to the patient's referral from the long term on account of increasing agitation, mood lability, marked obsessive, yelling unmanageable at the long term and then since she has been admitted to [address] [place] [address] consequent to a UTI following her evaluation in the Emergency Room. The patient's sister, Ricky was on the telephone hearing part of my interview with the patient as well with EDEL Dias, the nursing staff there as well. CHIEF COMPLAINT: "When can I go home. I need to go home. I need to go home. When can I go home." HISTORY OF PRESENT ILLNESS: The patient has a long history of intellectual disability, probable bipolar 1 disorder, obsessive-compulsive disorder, impulse control disorder. She has been hospitalized on the [facility] on more than one occasion in the past and I talked to the patient's sister in between the hospitalizations as well and since her last admission here attempting to stabilize her back at the long term. More recently, she has been increasingly anxious, agitated with marked mood lability, yelling, screaming, repetitive to a point that she has been unable to be cared for at the nursing facility. This is what prompted her referral to our Emergency Room where she was diagnosed with a UTI and then admitted to [address] [place] [address] prior to being considered for transfer to the [facility] if she still meets criteria at that stage. She does have a history of mood swings, marked obsessiveness as noted. No active suicidal or homicidal ideation. PAST PSYCHIATRIC HISTORY: As above. MEDICAL HISTORY: Positive for UTI, hypertension, hyperlipidemia, type 2 diabetes mellitus, hypothyroidism, psoriasis. FAMILY HISTORY: Noncontributory. SOCIAL HISTORY: The patient resides at [facility]. No alcohol or drug abuse history. DRUG ALLERGIES: Negative, CURRENT PSYCHOTROPICS: Klonopin 0.5 mg twice a day, Luvox 100 mg a day, trazodone 50 mg 3 times a day, Haldol IM p.r.n., Seroquel 25 mg twice a day. She is also on vitamin D supplements. MENTAL STATUS EXAM: The patient was seen individually evening of 05/03/2018. She has an IV in place. Seated on the Yudith chair, repetitive, yelling, smacking her lips all of which is typical for her. She is quite loud, obsessive, repetitive, totally un-redirectable. Again, her acute relapses have presented in similar manner in the past, especially with UTIs. No active suicidal or homicidal ideation. Attention span short. Language function intact. Intellectual function consistent with her intellectual disability. IMPRESSION: Intellectual disability, bipolar 1 disorder, mixed with psychotic features, obsessive-compulsive disorder, impulse control disorder; anxiety disorder, unspecified; urinary tract infection. Rest as above. PLAN: From a psychiatric standpoint, continue current psychotropics and we will increase the Luvox by another 25 mg, consider increasing the Seroquel. Treat the UTI. We will be happy to reassess her when she is medically stable and determine whether she meets inpatient criteria for the [facility] with Dr. Rivera. Thank you for the opportunity to participate in your patient's care. We will follow with you. IDA LAINEZ MD DR: YO/bakari JOB#: [id number] / [id number]
--- NOTE | 2018-05-05 09:46 | DS ---
DATE OF DISCHARGE: 05/04/2018 DISCHARGE TRANSFER SUMMARY HOSPITAL COURSE: The patient is a 72-year-old female patient who was referred from her alf on account of increasing agitation, mood lability, and marked obsession, yelling, unmanageable at the alf and then she was admitted to [address] [place] [address]. She was found to have acute renal failure. Her creatinine on arrival was 2.1 and BUN was 50. She was started on IV fluid and her kidney function has steadily improved such that her BUN is down to 19 and creatinine 0.9, and once stabilized, the decision was made to transfer her to [facility] for inpatient psychiatric stabilization. PHYSICAL EXAMINATION: GENERAL: On examining her on day of discharge, she looked well and was clearly in no apparent respiratory distress, slightly pale, no jaundice, cyanosis, or thyromegaly. No jugular venous distension. No lower limb edema. VITAL SIGNS: Her heart rate was 75, blood pressure was 139/67, temperature was 97.6, respiratory rate was 18, and oxygen saturation was 97% on room air. HEAD, EYES, EARS, NOSE, AND THROAT: Showed normocephalic, atraumatic. NECK: Supple. HEART: Showed normal first and second heart sounds. No gallop, rub, or murmur. CHEST: Clear to auscultation. No crepitation or rhonchi. ABDOMEN: Distended, soft, nontender. No guarding or rigidity. No organomegaly. All hernial orifice intact. Bowel sounds normal. NEUROLOGIC: She was awake, alert, responding at times appropriately. All cranial nerves intact. She moves extremities without difficulty, although she is mostly bedbound, chair bound. Her intake was 3100, no output was recorded. LABORATORY DATA: Showed a white cell count 10,000, hemoglobin 12, hematocrit 36, MCV 89, and platelet count of 143,000. Serum sodium 140, potassium 4.2, chloride 107, bicarbonate 26, anion gap of 7, BUN 19, creatinine 0.9, estimated GFR was mL per minute. Her glucose 150, calcium was 8.6. Urinalysis was unremarkable. DISCHARGE MEDICATIONS: She was transferred to [facility] to continue following medications: Cholecalciferol for vitamin D3 50,000 units once a month, clonazepam 0.5 mg twice a day, fluvoxamine maleate 100 mg at bedtime, hydrocortisone acetate for Anusol 25 mg suppository rectally p.r.n. daily for burning, lactobacillus acidophilus 1 capsule b.i.d., levothyroxine sodium 25 mcg daily, lisinopril 5 mg daily, Nystatin powder applied topically 3 times a day, Protonix 40 mg daily, quetiapine fumarate 25 mg twice a day, trazodone 50 mg 3 times a day with meals, fenofibrate 48 mg tablet at bedtime. FINAL DISCHARGE DIAGNOSIS: Acute kidney injury, resolved. Other medical problems include hypertension, hyperlipidemia, type 2 diabetes, hypothyroidism as well as psoriasis. FELISHA PITT MD DR: NAHID/bakari JOB#: [id number] / [id number]
--- NOTE | 2018-05-05 23:08 | PN ---
DATE: 05/04/2018 PSYCHIATRIC PROGRESS NOTE This late entry 05/04/2018 covers elements not covered in my initial note. SUBJECTIVE: I met with the patient in the evening. Per nursing report, the patient is doing much better. She has been less agitated, but still very obsessive, repetitive, constantly asking "when can I go home, when can I go home." REVIEW OF SYSTEMS: Ambulation impaired. No CV, , pulmonary, eye system symptoms on review. MENTAL STATUS EXAM: The patient was having supper and seemed quite intent and appropriate doing this. Speech is coherent, rapid, repetitive, abstraction fair, computation impaired, language function intact, attention span short. Mood and affect somewhat anxious, labile, obsessive, repetitive. No suicidal or homicidal ideation. IMPRESSION: Unchanged from initial note. PLAN: No change from a psychiatric standpoint. We may consider transferring [facility] depending on how she does, when she is medically stable. IDA LAINEZ MD DR: YO/bakari JOB#: [id number] / [id number]
[2018-05-29] MEDS ORDERED: CHOLECALCIFEROL (VITAMIN D3) 50,000 UNIT CAPSULE PO SCH (09:00)
== END 2018-05-04 16:50 | DRG 683 ==
LOC: ER 21:31 → 1 SOUTH 23:00
PROVIDERS: ADMIT Internal Medicine; ATTEND Internal Medicine
DX: N17.9 Acute kidney failure, unspecified (principal); F03.91 Unspecified dementia, unspecified severity, with behavioral disturbance; F31.60 Bipolar disorder, current episode mixed, unspecified; N39.0 Urinary tract infection, site not specified; E11.65 Type 2 diabetes mellitus with hyperglycemia; E03.9 Hypothyroidism, unspecified; E78.5 Hyperlipidemia, unspecified; E86.0 Dehydration; F41.9 Anxiety disorder, unspecified; F42.9 Obsessive-compulsive disorder, unspecified; F63.9 Impulse disorder, unspecified; F79 Unspecified intellectual disabilities; I10 Essential (primary) hypertension; K21.9 Gastro-esophageal reflux disease without esophagitis; L40.9 Psoriasis, unspecified; Z74.01 Bed confinement status
CPT/HCPCS: 36415; 80048; 80053; 80164; 81001; 82140; 82947; 83735; 85025; 87086; 87641; 93005; J1630; J1815; J2060; P9612; 99285-25; J7030

== ENCOUNTER 2018-05-04 17:09 | Inpatient (IN) | payer MEDICARE, OTHER ==
[~2018-05-04] VITALS: Ht 165.1 cm; Wt 100.0 kg
[~2018-05-04 17:09] MED LIST changes: +FENO48TA2 PO; +INSU100C SQ; +PANT40TA3 PO
[2018-05-04 17:30] VITALS: BP 111/66
[2018-05-04] MEDS ORDERED: METHYL SALICYLATE/MENTHOL TOPICAL OINTMENT 29GM TUBE. TP PRN (17:30)
[2018-05-04] MEDS ORDERED: MAG HYDROX/AL HYDROX/SIMETH 30 ML ORAL.SUSP PO PRN (17:30)
[2018-05-04] MEDS ORDERED: MAGNESIUM HYDROXIDE 2,400 MG/30 ML ORAL.SUSP. PO PRN (17:30)
[2018-05-04] MEDS ORDERED: NYSTATIN TOPICAL POWDER 15GM BOTTLE. TP PRN (18:00)
[2018-05-04] MEDS ORDERED: INSU100I11 SQ (18:04)
[2018-05-04] MEDS ORDERED: HYDROCORTISONE 2.5% RECTAL CREAM 30GM TUBE. RC PRN (19:30)
[2018-05-04] MEDS: NYSTATIN TOPICAL POWDER 15GM BOTTLE. TP SCH (19:40)
[2018-05-04] MEDS: traZODone 50 MG TABLET. PO SCH (19:40)
[2018-05-04] MEDS: LACTOBACILLUS RHAMNOSUS GG 1 CAPSULE. PO SCH (19:40)
[2018-05-04] MEDS: FENOFIBRATE NANOCRYSTALLIZED 48 MG TABLET PO SCH (19:40)
[2018-05-04] MEDS: clonazePAM 0.5 MG TABLET PO SCH (19:40)
[2018-05-04] MEDS: QUEtiapine 25 MG TABLET. PO SCH (19:40)
--- NOTE | 2018-05-04 23:12 | PDOC ---
Exam Note: Marcelo Note: Please also refer to the separate dictated note~for this date of service dictated separately.~Patient seen individually. Discussed the patient with Nursing staff reviewed the chart.~Reviewed interim history and current functioning. Reviewed vital signs,~Labs/ Radiology~and current medications noted below. Continue current treatment with the changes noted in the dictated addendum note Assessment: Vital Signs: Vital Signs Date Time Temp Pulse Resp B/P (MAP) Pulse Ox O2 Delivery O2 Flow Rate FiO2 05/04/18 17:30 97.6 93 18 111/66 (81) 97 Labs: Laboratory Tests Test 05/04/18 19:00 Glucose (Fingerstick) 248 mg/dL (70-99) H Current Medications: Meds: Current Medications Acetaminophen (Tylenol) 650 mg PRN Q6HRS PRN PO PAIN / TEMP; Start 05/04/18 at 17:30 Multi-Ingredient Ointment (Analgesic [place]) 1 porsche PRN QID PRN TP MUSCLE PAIN; Start 05/04/18 at 17:30 Al Hydroxide/Mg Hydroxide (Mylanta Plus Xs) 15 ml PRN AFTMEALHC PRN PO DYSPEPSIA; Start 05/04/18 at 17:30 Magnesium Hydroxide (Milk Of Magnesia) 2,400 mg PRN QHS PRN PO CONSTIPATION; Start 05/04/18 at 17:30 Vitamin D (Vitamin D3) 50,000 unit QMONTH PO ; Start 06/03/18 at 09:00 Insulin Human Lispro (HumaLOG) 0-7 TIDWMEALS SQ ; Start 05/05/18 at 08:00; Stop 05/05/18 at 08:00; Status DC Nystatin (Nystop) 1 porsche BID TP Last administered on 05/04/18at 19:40; Start at 21:00 Nystatin (Nystop) 1 porsche PRN TID PRN TP RASH; Start 05/04/18 at 18:00 Fenofibrate (Tricor) 48 mg QHS PO Last administered on 05/04/18at 19:40; Start 05/04/18 at 21:00 Hydrocortisone (Proctosol-Hc) 1 porsche PRN BID PRN RC BURNING OR BLOOD IN RECTUM; Start 05/04/18 at 19:30 Lactobacillus Rhamnosus (Culturelle) 1 cap BID PO Last administered on at 19:40; Start 05/04/18 at 21:00 Levothyroxine Sodium (Synthroid) 25 mcg DAILY06 PO ; Start 05/05/18 at 06:00 Lisinopril (Prinivil) 5 mg DAILY PO ; Start 05/05/18 at 09:00 Pantoprazole Sodium (Protonix) 40 mg DAILYAC PO ; Start 05/05/18 at 07:30 Clonazepam (KlonoPIN) 0.5 mg BID@1200,2100 PO Last administered on 05/04/18at 19 :40; Start 05/04/18 at 21:00 Fluvoxamine Maleate (Luvox) 100 mg QHS PO Last administered on 05/04/18 19:40 ; Start 05/04/18 at 21:00 Quetiapine Fumarate (SEROquel) 25 mg BID PO Last administered on 05/04/18at 19: 40; Start 05/04/18 at 21:00 Trazodone HCl (Desyrel) 50 mg TIDWMEALS PO Last administered on 05/04/18at 19:40 ; Start 05/04/18 at 19:30 Insulin Human Lispro (HumaLOG) 0-7 UNITS TIDWMEALS SQ ; Start 05/05/18 at 08:00 Active Scripts Active Reported Humalog (Insulin Lispro) 100 Unit/1 Ml Insuln.pen 0-7 Unit SQ TIDWMEALS BG 70-150= 0 units if eating; 0 units if not eating/HS BG 151-200= 3 units if eating; 0 units if not eating/HS BG 201-250= 4 units if eating; 2 units if not eating/HS BG 251-300= 6 units if eating; 3 units if not eating/HS BG 301-351= 7 units if eating; 4 units if not eating/HS BG >351= call provider for orders Fenofibrate (Fenofibrate Nanocrystallized) 48 Mg Tablet 48 Mg PO QHS Protonix (Pantoprazole Sodium) 40 Mg Tablet.dr 40 Mg PO DAILYAC Fluvoxamine Maleate 100 Mg Tablet 100 Mg PO HS Seroquel (Quetiapine Fumarate) 25 Mg Tablet 25 Mg PO BID Nystop (Nystatin) 60 Gm Powder 1 Porsche TP BID Lisinopril 5 Mg Tablet 5 Mg PO DAILY Nystop (Nystatin) 60 Gm Powder 1 Porsche TP PRN TID PRN Trazodone Hcl 50 Mg Tablet 50 Mg PO TIDWMEALS Clonazepam 0.5 Mg Tablet 0.5 Mg PO BID@1200,2100 Anusol-Hc (Hydrocortisone Acetate) 25 Mg Supp.rect 25 Mg RC PRN DAILY PRN Probiotic (Lactobacillus Acidophilus) 1 Each Capsule 1 Cap PO BID Levothyroxine Sodium 25 Mcg Tablet 25 Mcg PO DAILY06 Vitamin D3 (Cholecalciferol (Vitamin D3)) 50,000 Unit Capsule 50,000 Unit PO QMONTH Administer on the 15th of every Month I have reviewed the current psychotropics carefully including drug interactions. Risk benefit ratio favors no change other than as noted in my dictated progress note. Diagnosis: Problems: (1) Dementia (2) Medical clearance for psychiatric admission (3) Impulse control disorder (4) Anxiety (5) Impulse control disorder (6) Obsessive compulsive disorder (7) Intellectual disability (8) IMPULSE DISORDER, UNSPECIFIED IDA LAINEZ MD May 04, 2018 23:12
[2018-05-05] MEDS: LEVOTHYROXINE 25 MCG TABLET. PO SCH (05:41)
[2018-05-05 05:52] VITALS: BP 112/56
[2018-05-05] MEDS ORDERED: INSULIN LISPRO 300 UNITS/3 ML INSULN.PEN. SQ SCH (08:00)
[2018-05-05] MEDS: PANTOPRAZOLE 40 MG TABLET. PO SCH (08:04)
[2018-05-05] MEDS: traZODone 50 MG TABLET. PO SCH ×3 (08:05→17:33)
[2018-05-05] MEDS: INSULIN LISPRO 300 UNITS/3 ML INSULN.PEN. SQ SCH ×5 (08:11→17:26)
[2018-05-05] MEDS: LACTOBACILLUS RHAMNOSUS GG 1 CAPSULE. PO SCH ×2 (08:13→20:07)
[2018-05-05] MEDS: QUEtiapine 25 MG TABLET. PO SCH ×2 (08:13→20:07)
[2018-05-05] MEDS: NYSTATIN TOPICAL POWDER 15GM BOTTLE. TP SCH ×2 (08:13→20:17)
[2018-05-05] MEDS: LISINOPRIL 5 MG TABLET. PO SCH (09:00)
[2018-05-05 10:52] LABS: THYROID STIM HORMONE (TSH) 1.391 uIU/mL (0.358-3.740)
[2018-05-05] MEDS: clonazePAM 0.5 MG TABLET PO SCH ×2 (12:53→20:15)
--- NOTE | 2018-05-05 12:56 | CONS ---
DATE OF CONSULTATION: 05/05/2018 HISTORY OF PRESENT ILLNESS: The patient is a 72-year-old female patient who was referred from [facility] Emergency Room where she was evaluated. She was referred there from [facility] due to increased agitation, throwing plates, slapping other residents, threatening to stab staff, calling people names. All this was in a background of dementia. She was evaluated in the Emergency Room, was found to have acute renal failure. Her creatinine was 2.1 and BUN was 50. She was admitted to [address] [place] [address] and was treated with IV fluid and her kidney function has steadily improved such that her BUN was 19, creatinine 0.9, and was transferred to [facility] for inpatient psychiatric stabilization. PAST MEDICAL HISTORY: Significant for hypertension, hyperlipidemia, type 2 diabetes, hypothyroidism. She is also known to have psoriasis. PAST PSYCHIATRIC HISTORY: Significant for dementia with impulse control disorder. FAMILY HISTORY: Unremarkable. SOCIAL HISTORY: She is a resident at [facility]. She does not smoke, drink alcohol, or use any recreational drugs. REVIEW OF SYSTEMS: As per history of present illness. ALLERGIES: She has no known drug allergies. MEDICATIONS: As per EMR, apparently when we transferred her from [address] [place] [address], we forget to add continue her Levemir insulin as well as Humalog insulin. PHYSICAL EXAMINATION: VITAL SIGNS: Showed heart rate of 87, blood pressure 109/68, temperature was 97.8, respiratory rate was 18 and oxygen saturation was 94%. The rest of clinical exam is stable and unremarkable. IMPRESSION AND PLAN: In summary, this is a 72-year-old female patient, a resident at [facility], who was transferred to [facility] on account of increasing agitation, throwing plates, slapping other residents, threatening to stab staff, calling people names, all this in background of dementia. Her acute renal failure has resolved. Her creatinine is down to 0.9 and her BUN was 19. She has multiple other medical problems including hypertension, hyperlipidemia, hypothyroidism, and psoriasis. I did resume all her Lantus, both short and long-acting as well as insulin sliding scale. We will follow her labs closely and make a necessary recommendation. Thank you, Dr. Marvin for allowing me to participate in the care of this patient. FELISHA PITT MD DR: Yu JOB#: [id number] / [id number]
[2018-05-05 13:10] LABS: HEMOGLOBIN A1C 6.9 % (4.8-5.6); THYROXINE 8.2 ug/dL (4.5-12.0)
[2018-05-05 16:18] VITALS: BP 98/61
[2018-05-05] MEDS: FENOFIBRATE NANOCRYSTALLIZED 48 MG TABLET PO SCH (20:08)
[2018-05-05] MEDS: INSULIN GLARGINE 300 UNITS/3 ML INSULN.PEN. SQ SCH (20:14)
--- NOTE | 2018-05-05 20:22 | PDOC ---
Exam Note: Marcelo Note: Please also refer to the separate dictated note~for this date of service dictated separately.~Patient seen individually. Discussed the patient with Nursing staff reviewed the chart.~Reviewed interim history and current functioning. Reviewed vital signs,~Labs/ Radiology~and current medications noted below. Continue current treatment with the changes noted in the dictated addendum note Assessment: Vital Signs: Vital Signs Date Time Temp Pulse Resp B/P (MAP) Pulse Ox O2 Delivery O2 Flow Rate FiO2 05/05/18 16:18 97.6 80 16 98/61 (73) 95 I&O Intake and Output 05/05/18 06:59 Intake Total 240 ml Balance 240 ml Intake Oral 240 ml # Bowel Movements 1 Labs: Laboratory Tests Test 05/05/18 07:48 05/05/18 11:54 05/05/18 17:03 05/05/18 19:38 Glucose (Fingerstick) 185 mg/dL (70-99) H 286 mg/dL (70-99) H 105 mg/dL (70-99) H 143 mg/dL (70-99) H Current Medications: Meds: Current Medications Acetaminophen (Tylenol) 650 mg PRN Q6HRS PRN PO PAIN / TEMP; Start 05/04/18 at 17:30 Multi-Ingredient Ointment (Analgesic [place]) 1 porsche PRN QID PRN TP MUSCLE PAIN; Start 05/04/18 at 17:30 Al Hydroxide/Mg Hydroxide (Mylanta Plus Xs) 15 ml PRN AFTMEALHC PRN PO DYSPEPSIA; Start 05/04/18 at 17:30 Magnesium Hydroxide (Milk Of Magnesia) 2,400 mg PRN QHS PRN PO CONSTIPATION; Start 05/04/18 at 17:30 Vitamin D (Vitamin D3) 50,000 unit QMONTH PO ; Start 06/03/18 at 09:00 Insulin Human Lispro (HumaLOG) 0-7 TIDWMEALS SQ ; Start 05/05/18 at 08:00; Stop 05/05/18 at 08:00; Status DC Nystatin (Nystop) 1 porsche BID TP Last administered on 05/05/18at 20:17; Start at 21:00 Nystatin (Nystop) 1 porsche PRN TID PRN TP RASH; Start 05/04/18 at 18:00 Fenofibrate (Tricor) 48 mg QHS PO Last administered on 05/05/18at 20:08; Start 05/04/18 at 21:00 Hydrocortisone (Proctosol-Hc) 1 porsche PRN BID PRN RC BURNING OR BLOOD IN RECTUM; Start 05/04/18 at 19:30 Lactobacillus Rhamnosus (Culturelle) 1 cap BID PO Last administered on at 20:07; Start 05/04/18 at 21:00 Levothyroxine Sodium (Synthroid) 25 mcg DAILY06 PO Last administered on at 05:41; Start 05/05/18 at 06:00 Lisinopril (Prinivil) 5 mg DAILY PO ; Start 05/05/18 at 09:00 Pantoprazole Sodium (Protonix) 40 mg DAILYAC PO Last administered on 05/05/18at 08:04; Start 05/05/18 at 07:30 Clonazepam (KlonoPIN) 0.5 mg BID@1200,2100 PO Last administered on 05/05/18at 20 :15; Start 05/04/18 at 21:00 Fluvoxamine Maleate (Luvox) 100 mg QHS PO Last administered on 05/05/18at 20:07 ; Start 05/04/18 at 21:00 Quetiapine Fumarate (SEROquel) 25 mg BID PO Last administered on 05/05/18at 20: 07; Start 05/04/18 at 21:00 Trazodone HCl (Desyrel) 50 mg TIDWMEALS PO Last administered on 05/05/18at 17:33 ; Start 05/04/18 at 19:30 Insulin Human Lispro (HumaLOG) 0-7 UNITS TIDWMEALS SQ Last administered on 05/05at 12:40; Start 05/05/18 at 08:00 Insulin Human Lispro (HumaLOG) 10 units DAILY SQ ; Start 05/06/18 at 09:00 Insulin Human Lispro (HumaLOG) 25 units NOON SQ Last administered on 05/05/18at 12:39; Start 05/05/18 at 12:00 Insulin Human Lispro (HumaLOG) 15 units 1700 SQ Last administered on 05/05/18at 17:26; Start 05/05/18 at 17:00 Insulin Glargine (Lantus) 50 units QHS SQ Last administered on 05/05/18at 20:14 ; Start 05/05/18 at 21:00 Active Scripts Active Reported Humalog (Insulin Lispro) 100 Unit/1 Ml Insuln.pen 0-7 Unit SQ TIDWMEALS BG 70-150= 0 units if eating; 0 units if not eating/HS BG 151-200= 3 units if eating; 0 units if not eating/HS BG 201-250= 4 units if eating; 2 units if not eating/HS BG 251-300= 6 units if eating; 3 units if not eating/HS BG 301-351= 7 units if eating; 4 units if not eating/HS BG >351= call provider for orders Fenofibrate (Fenofibrate Nanocrystallized) 48 Mg Tablet 48 Mg PO QHS Protonix (Pantoprazole Sodium) 40 Mg Tablet.dr 40 Mg PO DAILYAC Fluvoxamine Maleate 100 Mg Tablet 100 Mg PO HS Seroquel (Quetiapine Fumarate) 25 Mg Tablet 25 Mg PO BID Nystop (Nystatin) 60 Gm Powder 1 Porsche TP BID Lisinopril 5 Mg Tablet 5 Mg PO DAILY Nystop (Nystatin) 60 Gm Powder 1 Porsche TP PRN TID PRN Trazodone Hcl 50 Mg Tablet 50 Mg PO TIDWMEALS Clonazepam 0.5 Mg Tablet 0.5 Mg PO BID@1200,2100 Anusol-Hc (Hydrocortisone Acetate) 25 Mg Supp.rect 25 Mg RC PRN DAILY PRN Probiotic (Lactobacillus Acidophilus) 1 Each Capsule 1 Cap PO BID Levothyroxine Sodium 25 Mcg Tablet 25 Mcg PO DAILY06 Vitamin D3 (Cholecalciferol (Vitamin D3)) 50,000 Unit Capsule 50,000 Unit PO QMONTH Administer on the 15th of every Month I have reviewed the current psychotropics carefully including drug interactions. Risk benefit ratio favors no change other than as noted in my dictated progress note. Diagnosis: Problems: (1) Dementia (2) DMII (diabetes mellitus, type 2) (3) Anxiety (4) Dementia (5) Impulse control disorder (6) Impulse control disorder (7) Obsessive compulsive disorder (8) Medical clearance for psychiatric admission (9) IMPULSE DISORDER, UNSPECIFIED (10) Intellectual disability IDA LAINEZ MD May 05, 2018 20:22
[2018-05-06] MEDS: LEVOTHYROXINE 25 MCG TABLET. PO SCH (05:55)
[2018-05-06 06:35] VITALS: BP 121/55
[2018-05-06] MEDS: LACTOBACILLUS RHAMNOSUS GG 1 CAPSULE. PO SCH ×2 (08:01→20:04)
[2018-05-06] MEDS: traZODone 50 MG TABLET. PO SCH ×3 (08:01→17:15)
[2018-05-06] MEDS: PANTOPRAZOLE 40 MG TABLET. PO SCH (08:01)
[2018-05-06] MEDS: INSULIN LISPRO 300 UNITS/3 ML INSULN.PEN. SQ SCH ×6 (08:04→16:58)
[2018-05-06] MEDS: LISINOPRIL 5 MG TABLET. PO SCH (08:59)
[2018-05-06] MEDS: NYSTATIN TOPICAL POWDER 15GM BOTTLE. TP SCH ×2 (09:00→20:29)
[2018-05-06] MEDS: clonazePAM 0.5 MG TABLET PO SCH ×2 (12:19→20:12)
[2018-05-06 16:15] VITALS: BP 113/71
--- NOTE | 2018-05-06 17:47 | HP ---
ADMIT DATE: 05/05/2018 PSYCHIATRIC ADMISSION HISTORY/EVALUATION This late entry, date of service, 05/05/2018 cover elements, not covered in my initial note. I met with the patient in the evening of 05/05/2018 for this evaluation, previously discussed with nursing staff on several occasions including prior to the patient's admission and presentation at the ER at [facility] where she was referred from [facility]. She was treated on per Dr. Rivera for her UTI and acute renal failure, was medically stabilized, continued to be extremely obsessive, anxious, thus resulting in this referral. CHIEF COMPLAINT: "When can I go home?" HISTORY OF PRESENT ILLNESS: The patient has been residing at [facility]. We had received a call from the [place] [facility] a few days back on account of the patient's increased anxiety, agitation. She was throwing plates, not eating or drinking, yelling out, name calling. Symptoms had been worsening for the past several months and she had failed psychiatric interventions and changes in her psychotropics initiated at the [place] [facility]. In fact on one occasion, the patient's sister had called me as well and discussed different options, most of which I had deferred to the psychiatrist who treating her at the [place] [facility]. She continues to have mood swings, reflective of her bipolar disorder, unspecified and the obsessive compulsive disorder together with her intellectual disability. PAST PSYCHIATRIC HISTORY: As above. PAST MEDICAL HISTORY: Positive for acute renal failure, UTI, diabetes mellitus, psoriasis, status post dehydration, vitamin D deficiency, hypothyroidism, GERD, hypertension, hyperlipidemia, Accu-Chek, CHS. DIET: Regular diabetic, takes medications whole. CODE STATUS: Full code. DRUG ALLERGIES: Negative. Ambulates independently with a walker, at times standby assist, unsteady gait. CURRENT PSYCHOTROPICS: Seroquel 25 mg b.i.d. and the patient's sister SANTI is quite keen to have her come off the Seroquel and see how she does and will do this. She is also on Klonopin 0.5 mg b.i.d., Luvox 100 mg at bedtime, trazodone 50 mg t.i.d. with meals. FAMILY HISTORY: Noncontributory. SOCIAL HISTORY: No history of alcohol, drug abuse, physical, sexual or elder abuse history is noted. She is not known to be a perpetrator. REACTION TO HOSPITALIZATION: The patient not fully accepting of this. MENTAL STATUS EXAM: The patient was seen individually evening of 05/05/2018. She readily recognized me. Speech coherent, rapid, repetitive and her verbalizations about wanting to be discharged. She can be loud at times. Abstraction fair, computation impaired, language function intact, attention span short. Mood and affect remains somewhat labile. No active suicidal or homicidal ideation. IMPRESSION: Bipolar 1 disorder, mixed; obsessive-compulsive disorder, intellectual disability, impulse control disorder; anxiety disorder, unspecified. Rest as above. PLAN: Admit to the geropsychiatry unit at [facility]. I will see the patient daily individually from a psychiatric standpoint, stop the Seroquel as noted above. Medical followup per Dr. Rivera/Dr. Park. Observe baseline. Make further adjustments as clinically indicated. MAN Stuart LAINEZ MD DR: YO/bakari JOB#: [id number] / [id number]
[2018-05-06] MEDS: INSULIN GLARGINE 300 UNITS/3 ML INSULN.PEN. SQ SCH (20:15)
[2018-05-06] MEDS: FENOFIBRATE NANOCRYSTALLIZED 48 MG TABLET PO SCH (20:29)
--- NOTE | 2018-05-06 20:44 | PDOC ---
Exam Note: Marcelo Note: Please also refer to the separate dictated note~for this date of service dictated separately.~Patient seen individually. Discussed the patient with Nursing staff reviewed the chart.~Reviewed interim history and current functioning. Reviewed vital signs,~Labs/ Radiology~and current medications noted below. Continue current treatment with the changes noted in the dictated addendum note Assessment: Vital Signs: Vital Signs Date Time Temp Pulse Resp B/P (MAP) Pulse Ox O2 Delivery O2 Flow Rate FiO2 05/06/18 16:15 97.2 95 18 113/71 (85) 99 I&O Intake and Output 05/06/18 07:00 Intake Total 1080 ml Balance 1080 ml Intake Oral 1080 ml Labs: Laboratory Tests Test 05/06/18 07:20 05/06/18 12:04 05/06/18 16:36 05/06/18 19:04 Glucose (Fingerstick) 88 mg/dL (70-99) 93 mg/dL (70-99) 65 mg/dL (70-99) L 102 mg/dL (70-99) H Current Medications: Meds: Current Medications Acetaminophen (Tylenol) 650 mg PRN Q6HRS PRN PO PAIN / TEMP; Start 05/04/18 at 17:30 Multi-Ingredient Ointment (Analgesic [place]) 1 porsche PRN QID PRN TP MUSCLE PAIN; Start 05/04/18 at 17:30 Al Hydroxide/Mg Hydroxide (Mylanta Plus Xs) 15 ml PRN AFTMEALHC PRN PO DYSPEPSIA; Start 05/04/18 at 17:30 Magnesium Hydroxide (Milk Of Magnesia) 2,400 mg PRN QHS PRN PO CONSTIPATION; Start 05/04/18 at 17:30 Vitamin D (Vitamin D3) 50,000 unit QMONTH PO ; Start 06/03/18 at 09:00 Insulin Human Lispro (HumaLOG) 0-7 TIDWMEALS SQ ; Start 05/05/18 at 08:00; Stop 05/05/18 at 08:00; Status DC Nystatin (Nystop) 1 porsche BID TP Last administered on 05/06/18at 20:29; Start at 21:00 Nystatin (Nystop) 1 porsche PRN TID PRN TP RASH; Start 05/04/18 at 18:00 Fenofibrate (Tricor) 48 mg QHS PO Last administered on 05/06/18at 20:29; Start 05/04/18 at 21:00 Hydrocortisone (Proctosol-Hc) 1 porsche PRN BID PRN RC BURNING OR BLOOD IN RECTUM; Start 05/04/18 at 19:30 Lactobacillus Rhamnosus (Culturelle) 1 cap BID PO Last administered on at 20:04; Start 05/04/18 at 21:00 Levothyroxine Sodium (Synthroid) 25 mcg DAILY06 PO Last administered on at 05:55; Start 05/05/18 at 06:00 Lisinopril (Prinivil) 5 mg DAILY PO ; Start 05/05/18 at 09:00 Pantoprazole Sodium (Protonix) 40 mg DAILYAC PO Last administered on 05/06/18at 08:01; Start 05/05/18 at 07:30 Clonazepam (KlonoPIN) 0.5 mg BID@1200,2100 PO Last administered on 05/06/18at 20 :12; Start 05/04/18 at 21:00 Fluvoxamine Maleate (Luvox) 100 mg QHS PO Last administered on 05/05/18at 20:07 ; Start 05/04/18 at 21:00; Stop 05/06/18 at 18:15; Status DC Quetiapine Fumarate (SEROquel) 25 mg BID PO Last administered on 05/05/18at 20: 07; Start 05/04/18 at 21:00; Stop 05/05/18 at 21:01; Status DC Trazodone HCl (Desyrel) 50 mg TIDWMEALS PO Last administered on 05/06/18at 17:15 ; Start 05/04/18 at 19:30 Insulin Human Lispro (HumaLOG) 0-7 UNITS TIDWMEALS SQ Last administered on 05/05at 12:40; Start 05/05/18 at 08:00 Insulin Human Lispro (HumaLOG) 10 units DAILY SQ Last administered on at 08:04; Start 05/06/18 at 09:00 Insulin Human Lispro (HumaLOG) 25 units NOON SQ Last administered on 05/06/18at 12:20; Start 05/05/18 at 12:00 Insulin Human Lispro (HumaLOG) 15 units 1700 SQ Last administered on 05/05/18at 17:26; Start 05/05/18 at 17:00 Insulin Glargine (Lantus) 50 units QHS SQ Last administered on 05/06/18at 20:15 ; Start 05/05/18 at 21:00 Fluvoxamine Maleate (Luvox) 125 mg QHS PO Last administered on 05/06/18at 20:09 ; Start 05/06/18 at 21:00 Fluvoxamine Maleate (Luvox) 25 mg QHS PO ; Start 05/06/18 at 21:00 Active Scripts Active Reported Humalog (Insulin Lispro) 100 Unit/1 Ml Insuln.pen 0-7 Unit SQ TIDWMEALS BG 70-150= 0 units if eating; 0 units if not eating/HS BG 151-200= 3 units if eating; 0 units if not eating/HS BG 201-250= 4 units if eating; 2 units if not eating/HS BG 251-300= 6 units if eating; 3 units if not eating/HS BG 301-351= 7 units if eating; 4 units if not eating/HS BG >351= call provider for orders Fenofibrate (Fenofibrate Nanocrystallized) 48 Mg Tablet 48 Mg PO QHS Protonix (Pantoprazole Sodium) 40 Mg Tablet.dr 40 Mg PO DAILYAC Fluvoxamine Maleate 100 Mg Tablet 100 Mg PO HS Seroquel (Quetiapine Fumarate) 25 Mg Tablet 25 Mg PO BID Nystop (Nystatin) 60 Gm Powder 1 Porsche TP BID Lisinopril 5 Mg Tablet 5 Mg PO DAILY Nystop (Nystatin) 60 Gm Powder 1 Porsche TP PRN TID PRN Trazodone Hcl 50 Mg Tablet 50 Mg PO TIDWMEALS Clonazepam 0.5 Mg Tablet 0.5 Mg PO BID@1200,2100 Anusol-Hc (Hydrocortisone Acetate) 25 Mg Supp.rect 25 Mg RC PRN DAILY PRN Probiotic (Lactobacillus Acidophilus) 1 Each Capsule 1 Cap PO BID Levothyroxine Sodium 25 Mcg Tablet 25 Mcg PO DAILY06 Vitamin D3 (Cholecalciferol (Vitamin D3)) 50,000 Unit Capsule 50,000 Unit PO QMONTH Administer on the 15th of every Month I have reviewed the current psychotropics carefully including drug interactions. Risk benefit ratio favors no change other than as noted in my dictated progress note. Diagnosis: Problems: (1) Intellectual disability (2) Anxiety (3) Dementia (4) Impulse control disorder (5) Impulse control disorder (6) Obsessive compulsive disorder (7) Medical clearance for psychiatric admission (8) IMPULSE DISORDER, UNSPECIFIED (9) Dementia (10) DMII (diabetes mellitus, type 2) IDA LAINEZ MD May 06, 2018 20:44
[2018-05-07] MEDS: LEVOTHYROXINE 25 MCG TABLET. PO SCH (05:45)
[2018-05-07 05:57] VITALS: BP 155/95
[2018-05-07] MEDS: INSULIN LISPRO 300 UNITS/3 ML INSULN.PEN. SQ SCH ×6 (08:05→17:42)
[2018-05-07] MEDS: PANTOPRAZOLE 40 MG TABLET. PO SCH (08:44)
[2018-05-07] MEDS: LACTOBACILLUS RHAMNOSUS GG 1 CAPSULE. PO SCH ×2 (08:44→21:01)
[2018-05-07] MEDS: LISINOPRIL 5 MG TABLET. PO SCH (08:44)
[2018-05-07] MEDS: traZODone 50 MG TABLET. PO SCH ×3 (08:44→17:52)
[2018-05-07] MEDS: NYSTATIN TOPICAL POWDER 15GM BOTTLE. TP SCH ×2 (08:45→21:05)
[2018-05-07] MEDS: clonazePAM 0.5 MG TABLET PO SCH ×2 (12:43→21:07)
[2018-05-07 16:05] VITALS: BP 110/51
[2018-05-07] MEDS: FENOFIBRATE NANOCRYSTALLIZED 48 MG TABLET PO SCH (21:08)
[2018-05-07] MEDS: INSULIN GLARGINE 300 UNITS/3 ML INSULN.PEN. SQ SCH (21:14)
--- NOTE | 2018-05-07 21:26 | PDOC ---
Exam Note: Marcelo Note: Please also refer to the separate dictated note~for this date of service dictated separately.~Patient seen individually. Discussed the patient with Nursing staff reviewed the chart.~Reviewed interim history and current functioning. Reviewed vital signs,~Labs/ Radiology~and current medications noted below. Continue current treatment with the changes noted in the dictated addendum note Assessment: Vital Signs: Vital Signs Date Time Temp Pulse Resp B/P (MAP) Pulse Ox O2 Delivery O2 Flow Rate FiO2 05/07/18 16:05 97.1 81 16 110/51 (70) 93 I&O Intake and Output 05/07/18 07:00 Intake Total 840 ml Balance 840 ml Intake Oral 840 ml # Voids 1 Labs: Laboratory Tests Test 05/07/18 07:25 05/07/18 12:06 05/07/18 17:33 05/07/18 20:26 Glucose (Fingerstick) 122 mg/dL (70-99) H 248 mg/dL (70-99) H 57 mg/dL (70-99) L 123 mg/dL (70-99) H Current Medications: Meds: Current Medications Acetaminophen (Tylenol) 650 mg PRN Q6HRS PRN PO PAIN / TEMP; Start 05/04/18 at 17:30 Multi-Ingredient Ointment (Analgesic [place]) 1 porsche PRN QID PRN TP MUSCLE PAIN; Start 05/04/18 at 17:30 Al Hydroxide/Mg Hydroxide (Mylanta Plus Xs) 15 ml PRN AFTMEALHC PRN PO DYSPEPSIA; Start 05/04/18 at 17:30 Magnesium Hydroxide (Milk Of Magnesia) 2,400 mg PRN QHS PRN PO CONSTIPATION; Start 05/04/18 at 17:30 Vitamin D (Vitamin D3) 50,000 unit QMONTH PO ; Start 06/03/18 at 09:00 Insulin Human Lispro (HumaLOG) 0-7 TIDWMEALS SQ ; Start 05/05/18 at 08:00; Stop 05/05/18 at 08:00; Status DC Nystatin (Nystop) 1 porsche BID TP Last administered on 05/07/18at 21:05; Start at 21:00 Nystatin (Nystop) 1 porsche PRN TID PRN TP RASH; Start 05/04/18 at 18:00 Fenofibrate (Tricor) 48 mg QHS PO Last administered on 05/07/18at 21:08; Start 05/04/18 at 21:00 Hydrocortisone (Proctosol-Hc) 1 porsche PRN BID PRN RC BURNING OR BLOOD IN RECTUM; Start 05/04/18 at 19:30 Lactobacillus Rhamnosus (Culturelle) 1 cap BID PO Last administered on at 21:01; Start 05/04/18 at 21:00 Levothyroxine Sodium (Synthroid) 25 mcg DAILY06 PO Last administered on at 05:45; Start 05/05/18 at 06:00 Lisinopril (Prinivil) 5 mg DAILY PO Last administered on 05/07/18at 08:44; Start 05/05/18 at 09:00 Pantoprazole Sodium (Protonix) 40 mg DAILYAC PO Last administered on 05/07/18at 08:44; Start 05/05/18 at 07:30 Clonazepam (KlonoPIN) 0.5 mg BID@1200,2100 PO Last administered on 05/07/18at 21 :07; Start 05/04/18 at 21:00 Fluvoxamine Maleate (Luvox) 100 mg QHS PO Last administered on 05/05/18at 20:07 ; Start 05/04/18 at 21:00; Stop 05/06/18 at 18:15; Status DC Quetiapine Fumarate (SEROquel) 25 mg BID PO Last administered on 05/05/18at 20: 07; Start 05/04/18 at 21:00; Stop 05/05/18 at 21:01; Status DC Trazodone HCl (Desyrel) 50 mg TIDWMEALS PO Last administered on 05/07/18at 17:52 ; Start 05/04/18 at 19:30; Stop 05/07/18 at 18:34; Status DC Insulin Human Lispro (HumaLOG) 0-7 UNITS TIDWMEALS SQ Last administered on 05/07at 12:42; Start 05/05/18 at 08:00 Insulin Human Lispro (HumaLOG) 10 units DAILY SQ Last administered on at 08:46; Start 05/06/18 at 09:00 Insulin Human Lispro (HumaLOG) 25 units NOON SQ Last administered on 05/07/18at 12:43; Start 05/05/18 at 12:00 Insulin Human Lispro (HumaLOG) 15 units 1700 SQ Last administered on 05/05/18at 17:26; Start 05/05/18 at 17:00 Insulin Glargine (Lantus) 50 units QHS SQ Last administered on 05/07/18at 21:14 ; Start 05/05/18 at 21:00 Fluvoxamine Maleate (Luvox) 125 mg QHS PO Last administered on 05/07/18at 21:01 ; Start 05/06/18 at 21:00 Fluvoxamine Maleate (Luvox) 25 mg QHS PO Last administered on 05/07/18at 21:01; Start 05/06/18 at 21:00 Trazodone HCl (Desyrel) 75 mg DAILY@0900 PO ; Start 05/08/18 at 09:00 Trazodone HCl (Desyrel) 50 mg BID@1300,1700 PO ; Start 05/08/18 at 13:00 Active Scripts Active Reported Humalog (Insulin Lispro) 100 Unit/1 Ml Insuln.pen 0-7 Unit SQ TIDWMEALS BG 70-150= 0 units if eating; 0 units if not eating/HS BG 151-200= 3 units if eating; 0 units if not eating/HS BG 201-250= 4 units if eating; 2 units if not eating/HS BG 251-300= 6 units if eating; 3 units if not eating/HS BG 301-351= 7 units if eating; 4 units if not eating/HS BG >351= call provider for orders Fenofibrate (Fenofibrate Nanocrystallized) 48 Mg Tablet 48 Mg PO QHS Protonix (Pantoprazole Sodium) 40 Mg Tablet.dr 40 Mg PO DAILYAC Fluvoxamine Maleate 100 Mg Tablet 100 Mg PO HS Seroquel (Quetiapine Fumarate) 25 Mg Tablet 25 Mg PO BID Nystop (Nystatin) 60 Gm Powder 1 Porsche TP BID Lisinopril 5 Mg Tablet 5 Mg PO DAILY Nystop (Nystatin) 60 Gm Powder 1 Porsche TP PRN TID PRN Trazodone Hcl 50 Mg Tablet 50 Mg PO TIDWMEALS Clonazepam 0.5 Mg Tablet 0.5 Mg PO BID@1200,2100 Anusol-Hc (Hydrocortisone Acetate) 25 Mg Supp.rect 25 Mg RC PRN DAILY PRN Probiotic (Lactobacillus Acidophilus) 1 Each Capsule 1 Cap PO BID Levothyroxine Sodium 25 Mcg Tablet 25 Mcg PO DAILY06 Vitamin D3 (Cholecalciferol (Vitamin D3)) 50,000 Unit Capsule 50,000 Unit PO QMONTH Administer on the 15th of every Month I have reviewed the current psychotropics carefully including drug interactions. Risk benefit ratio favors no change other than as noted in my dictated progress note. Diagnosis: Problems: (1) Intellectual disability (2) Anxiety (3) Dementia (4) Impulse control disorder (5) Impulse control disorder (6) Obsessive compulsive disorder (7) Medical clearance for psychiatric admission (8) IMPULSE DISORDER, UNSPECIFIED (9) Dementia (10) DMII (diabetes mellitus, type 2) IDA LAINEZ MD May 07, 2018 21:26
--- NOTE | 2018-05-07 23:51 | PN ---
DATE: 05/06/2018 This late entry, 05/06/2018, covers elements not covered in my initial note. SUBJECTIVE: I met with the patient in the evening. The patient slept 7-3/4 hours previous evening. She has been extremely anxious, repetitive, following me around the unit and I met with her on 5 or 6 different occasions and she would come back and ask me the same question "when am I going home, when am I going home, when am I going home." She is quite fixated on this. REVIEW OF SYSTEMS: Ambulation impaired with walker. No CV, , pulmonary, eye, ENT system symptoms on review. She has vague somatic symptoms. MENTAL STATUS EXAM: Oriented to herself and situation. Speech coherent, rapid, and loud at times. Abstraction fair, computation impaired, language function intact, attention span short. Mood and affect remains labile, obsessive, repetitive. LABORATORY DATA: Reviewed. IMPRESSION: Bipolar I disorder, mixed obsessive-compulsive disorder, intellectual disability, anxiety disorder, unspecified. PLAN: Increase Luvox from 100 mg a day to 125 mg a day, Klonopin 0.5 b.i.d., trazodone 50 mg t.i.d. with meals. Seroquel was discontinued. May need to increase trazodone. Has an anti-anxiety mood agent to help her restlessness, anxiety, repetitiveness. IDA LAINEZ MD DR: YO/bakari JOB#: [id number] / [id number]
[2018-05-08 06:15] VITALS: BP 103/52
[2018-05-08] MEDS: LEVOTHYROXINE 25 MCG TABLET. PO SCH (06:17)
--- NOTE | 2018-05-08 08:25 | PN ---
DATE: 05/08/2018 SUBJECTIVE: "When I can go home." The patient denies any new medical or neurological complaints. She continues to have mild tremor of the hands. OBJECTIVE: GENERAL: Well-developed, well-nourished female, not in acute distress. VITAL SIGNS: Blood pressure 103/52, respiratory rate 18, pulse is 66, temperature 97.7, oxygen saturation 97% on room air. HEENT: Normocephalic, atraumatic, otherwise unremarkable. NECK: Supple. Negative for carotid bruit, lymphadenopathy, or thyromegaly. LUNGS: Clear to A and P. CARDIOVASCULAR: Regular rate and rhythm, normal S1-S2. There is no S3, S4, or murmur. ABDOMEN: Soft. Bowel sounds positive. EXTREMITIES: Negative for cyanosis, clubbing, or pitting edema. NEUROLOGIC: The patient is alert and disoriented to time and place. His speech is fluent. There is no language dysfunction. Memory, judgment, and abstract thinking are fair. The patient denies hallucination or delusion. Cranial nerves are intact. Motor Examination: No focal muscle bulk is seen. The tone is normal. The strength is 4/5 throughout. Sensory examination revealed diminished pinprick and light touch senses and position sense in the distal lower extremities. Deep tendon reflexes were symmetric and hypoactive with absent Achilles responses. Gait: The patient uses a walker for ambulation. LABORATORY DATA: Blood sugar on 05/07/2018 was 123. IMPRESSION: 1. Mild resting tremor, more postural and kinetic tremors of the upper extremities, etiology uncertain, rule out medication side effects versus anxiety disorders. Other possibility includes a senile tremor. 2. Multiple medical problems include hypertension, hyperlipidemia, diabetes mellitus, gastroesophageal reflux disease. 3. Multiple psychiatric problems include dementia, obsessive-compulsive disorder, bipolar disorders, and anxiety disorders. RECOMMENDATIONS: 1. Continue with current medical and psychiatric care. 2. Physical therapy. 3. We discussed with the patient's family member about the nature of her tremor. M Manny ESPINOZA MD DR: MY/bakari JOB#: [id number] / [id number]
[2018-05-08] MEDS: INSULIN LISPRO 300 UNITS/3 ML INSULN.PEN. SQ SCH ×6 (08:26→18:02)
--- NOTE | 2018-05-08 08:53 | CONS ---
DATE OF CONSULTATION: 05/07/2018 NEUROLOGIC CONSULTATION REFERRING PHYSICIAN: Per Marvin MD REASON FOR CONSULTATION: Dementia and tremor of the arms. HISTORY OF PRESENT ILLNESS: This is a 72-year-old right-handed female who was admitted on and on account of increasing symptoms of behavior disturbances, described as agitation and violence. The patient was transferred from her intermediate to Emergency Room at [facility], then transferred to [facility] Behavior unit for further evaluation for more disturbances. Neuro consult was requested because the patient has had intermittent tremor of the upper extremities and decline of her mental status. The patient was initially admitted to [address] [place] [address] when she was found to have been in acute renal failure. She was treated conservatively with IV fluid and transferred to the unit after her renal function improved. She was also treated for urinary tract infections. Currently, the patient denies headaches, visual disturbances, nausea, vomiting, chest pain, shortness of breath, or palpitation. She has had intermittent tremor of the upper extremities, which is usually aggravated by anxiety. PAST MEDICAL HISTORY: Significant for diabetes mellitus, insulin-dependent; hypertension, hyperlipidemia, GERD, vitamin D deficiency, hypothyroidism, hyperlipidemia, urinary tract infections, and renal failure. PAST PSYCHIATRIC HISTORY: Consistent with intermittent behavior disturbances, bipolar disorder, OCD, and anxiety disorders. SOCIAL HISTORY: The patient is a intermediate resident. There is no history of smoking, alcohol drinking, or illicit drug use. ALLERGIES: No known drug allergies. FAMILY HISTORY: Noncontributory. CURRENT MEDICATIONS: Vitamin D 50 units once monthly, trazodone 50 mg b.i.d. and 75 mg at bedtime, Lovenox 25 mg p.o. at bedtime and 125 mg at bedtime, insulin Humalog 10 units daily subcutaneously, insulin Lantus 50 units subcutaneous at bedtime, subacute bedtime, insulin Humalog 15 units p.m. and 25 units noon, insulin Humalog up to 7 units t.i.d. with meal on sliding scale, pantoprazole 40 units daily, levothyroxine 25 mcg p.o. daily, clonazepam 0.5 mg b.i.d., TriCor 48 mg at bedtime, Tylenol p.r.n. for pain. REVIEW OF SYSTEMS: A 10-point review of system was performed and as mentioned above in history of present illness. PHYSICAL EXAMINATION: GENERAL: Well-developed, well-nourished female, not in acute distress. She weighs 186 pounds. VITAL SIGNS: Blood pressure 155/95, respiratory rate is 16, pulse is 93, temperature is 97.1, oxygen saturation is 95% on room air. HEENT: Normocephalic, atraumatic, otherwise unremarkable. NECK: Supple. Negative for carotid bruit, lymphadenopathy, or thyromegaly. LUNGS: Clear to A and P. CARDIOVASCULAR: Regular rate and rhythm, normal S1, S2. ABDOMEN: Soft. Bowel sounds positive. EXTREMITIES: Negative for cyanosis, clubbing, edema, but positive for discoloration of the distal lower extremities. NEUROLOGICAL EXAM: Mental Status: The patient is alert to herself. She is disoriented to date, time, and place. Speech is fluent. There is no language dysfunction. Memory, judgment, and abstract thinking are fair. The patient denies hallucination or delusion. Cranial nerves: Visual caballero are full. The pupils are reactive to light and accommodation. The extraocular movements are intact. There is no nystagmus. There is no facial motor or sensory deficit. Hearing is intact bilaterally. The palate is elevated symmetrically. Sternocleidomastoid muscles are powerful bilaterally. The patient shrugs her shoulders symmetrically and protrudes her tongue in the midline without fasciculation or atrophy. Motor: No focal muscle bulk was seen. The tone is normal. The strength is 4/5 throughout. The patient had mild resting tremor of the upper extremity, but she has more kinetic and postural tremors bilaterally. Sensory examination revealed diminished pinprick and light touch senses in stocking distributions. Deep tendon reflexes were symmetric and hypoactive with absent Achilles responses. Gait: The stance is steady and the patient uses a walker for ambulation. LABORATORY DATA: From 05/03/2018. CBC revealed white blood cells of 10,100, hemoglobin 12.2, hematocrit 35.7, platelet count 143,000. Chemistry revealed sodium of 140, potassium 4.2, chloride 107, CO2 26, BUN 19, creatinine 0.9, glucose 150. Hemoglobin A1c is 6.9, calcium 8.6. Troponin level is normal. Liver enzymes are normal. Triglyceride is high at 166 with normal cholesterol and high LDL at 119. Vitamin B12 is 301. Vitamin D is 39.3. Thyroid profile is normal. Urinalysis is positive for urinary tract infections. Urine drug screen is negative. IMPRESSION: 1. Mild resting tremor of the upper extremities with moderate postural and kinetic tremors, etiology, probably due to underlying anxiety disorders or/and side effects of current psychotropic medications. 2. Multiple medical problems include hypertension, hyperlipidemia, diabetes mellitus, gastroesophageal reflux disease, recent urinary tract infections, and dementia. 3. Multiple psychiatric problems include anxiety, generalized anxiety disorder, obsessive compulsive disorder, bipolar disorder, intermittent behavior disturbances. RECOMMENDATIONS: 1. Continue with current medical and psychiatric care and management. 2. Physical therapy as tolerated. M Manny ESPINOZA MD DR: MY/bakari JOB#: [id number] / [id number]
[2018-05-08] MEDS: PANTOPRAZOLE 40 MG TABLET. PO SCH (09:50)
[2018-05-08] MEDS: LISINOPRIL 5 MG TABLET. PO SCH (09:50)
[2018-05-08] MEDS: LACTOBACILLUS RHAMNOSUS GG 1 CAPSULE. PO SCH ×2 (09:50→20:38)
[2018-05-08] MEDS: NYSTATIN TOPICAL POWDER 15GM BOTTLE. TP SCH ×2 (09:50→20:54)
[2018-05-08] MEDS: traZODone 50 MG TABLET. PO SCH ×3 (09:53→18:29)
[2018-05-08] MEDS: clonazePAM 0.5 MG TABLET PO SCH ×2 (13:27→20:59)
[2018-05-08 16:28] VITALS: BP 105/64
--- NOTE | 2018-05-08 19:50 | PN ---
DATE: 05/07/2018 This late entry 05/07/2018 covers elements not covered in my initial note. SUBJECTIVE: I met with the patient in the evening. The patient slept 7-1/4 hours previous evening, somewhat upset easily, repeatedly trying to call her sister, nagging, whining per nursing report. Appetite is good. Ambulation impaired with walker. No CV, , pulmonary, eye, ENT system symptoms on review. Even after I met with her individually on 2 separate occasions, she was following me around the unit and banging on the nursing station glass window, trying to attract my attention as I worked on record. Repeatedly asking "I need to go home. I am improving. I need to go home, I need to go home." Processed this at length with her. REVIEW OF SYSTEMS: Ambulation impaired with walker. No CV, , pulmonary, eye system symptoms on review. MENTAL STATUS EXAM: Oriented to herself and situation. Speech is noted. Abstraction fair, computation impaired, language function intact. She is quite obsessive, repetitive. No active suicidal or homicidal ideation. LABORATORY DATA: Reviewed. IMPRESSION: Unchanged from initial note. PLAN: Increase trazodone from 50 mg t.i.d. to 75 mg in the morning and 50 mg twice a day. Continue Klonopin 0.5 mg b.i.d., Luvox 150 mg at bedtime, may need to increase this and Seroquel was stopped. IDA LAINEZ MD DR: YO/bakari JOB#: [id number] / [id number]
[2018-05-08] MEDS: FENOFIBRATE NANOCRYSTALLIZED 48 MG TABLET PO SCH (20:41)
[2018-05-08] MEDS: INSULIN GLARGINE 300 UNITS/3 ML INSULN.PEN. SQ SCH (21:00)
--- NOTE | 2018-05-08 21:08 | PDOC ---
Exam Note: Marcelo Note: Please also refer to the separate dictated note~for this date of service dictated separately.~Patient seen individually. Discussed the patient with Nursing staff reviewed the chart.~Reviewed interim history and current functioning. Reviewed vital signs,~Labs/ Radiology~and current medications noted below. Continue current treatment with the changes noted in the dictated addendum note Assessment: Vital Signs: Vital Signs Date Time Temp Pulse Resp B/P (MAP) Pulse Ox O2 Delivery O2 Flow Rate FiO2 05/08/18 16:28 99.3 80 18 105/64 (78) 98 Room Air I&O Intake and Output 05/08/18 07:00 Intake Total 960 ml Balance 960 ml Intake Oral 960 ml # Voids 1 # Bowel Movements 1 Labs: Laboratory Tests Test 05/08/18 07:30 05/08/18 07:47 05/08/18 12:08 05/08/18 17:04 Glucose (Fingerstick) 63 mg/dL (70-99) L 86 mg/dL (70-99) 161 mg/dL (70-99) H 92 mg/dL (70-99) Test 05/08/18 19:26 Glucose (Fingerstick) 105 mg/dL (70-99) H Current Medications: Meds: Current Medications Acetaminophen (Tylenol) 650 mg PRN Q6HRS PRN PO PAIN / TEMP; Start 05/04/18 at 17:30 Multi-Ingredient Ointment (Analgesic [place]) 1 porsche PRN QID PRN TP MUSCLE PAIN; Start 05/04/18 at 17:30 Al Hydroxide/Mg Hydroxide (Mylanta Plus Xs) 15 ml PRN AFTMEALHC PRN PO DYSPEPSIA; Start 05/04/18 at 17:30 Magnesium Hydroxide (Milk Of Magnesia) 2,400 mg PRN QHS PRN PO CONSTIPATION; Start 05/04/18 at 17:30 Vitamin D (Vitamin D3) 50,000 unit QMONTH PO ; Start 06/03/18 at 09:00 Insulin Human Lispro (HumaLOG) 0-7 TIDWMEALS SQ ; Start 05/05/18 at 08:00; Stop 05/05/18 at 08:00; Status DC Nystatin (Nystop) 1 porsche BID TP Last administered on 05/08/18at 20:54; Start at 21:00 Nystatin (Nystop) 1 porsche PRN TID PRN TP RASH; Start 05/04/18 at 18:00 Fenofibrate (Tricor) 48 mg QHS PO Last administered on 05/08/18 20:41; Start 05/04/18 at 21:00 Hydrocortisone (Proctosol-Hc) 1 porsche PRN BID PRN RC BURNING OR BLOOD IN RECTUM; Start 05/04/18 at 19:30 Lactobacillus Rhamnosus (Culturelle) 1 cap BID PO Last administered on 20:38; Start 05/04/18 at 21:00 Levothyroxine Sodium (Synthroid) 25 mcg DAILY06 PO Last administered on 06:17; Start 05/05/18 at 06:00 Lisinopril (Prinivil) 5 mg DAILY PO Last administered on 05/08/18 09:50; Start 05/05/18 at 09:00 Pantoprazole Sodium (Protonix) 40 mg DAILYAC PO Last administered on 05/08/18 09:50; Start 05/05/18 at 07:30 Clonazepam (KlonoPIN) 0.5 mg BID@1200,2100 PO Last administered on 05/08/18 20 :59; Start 05/04/18 at 21:00 Fluvoxamine Maleate (Luvox) 100 mg QHS PO Last administered on 05/05/18 20:07 ; Start 05/04/18 at 21:00; Stop 05/06/18 at 18:15; Status DC Quetiapine Fumarate (SEROquel) 25 mg BID PO Last administered on 05/05/18 20: 07; Start 05/04/18 at 21:00; Stop 05/05/18 at 21:01; Status DC Trazodone HCl (Desyrel) 50 mg TIDWMEALS PO Last administered on 05/07/18 17:52 ; Start 05/04/18 at 19:30; Stop 05/07/18 at 18:34; Status DC Insulin Human Lispro (HumaLOG) 0-7 UNITS TIDWMEALS SQ Last administered on 05/08 13:29; Start 05/05/18 at 08:00 Insulin Human Lispro (HumaLOG) 10 units DAILY SQ Last administered on 7/24/ 18at 08:46; Start 05/06/18 at 09:00 Insulin Human Lispro (HumaLOG) 25 units NOON SQ Last administered on 05/08/18at 13:30; Start 05/05/18 at 12:00 Insulin Human Lispro (HumaLOG) 15 units 1700 SQ Last administered on 05/05/18at 17:26; Start 05/05/18 at 17:00 Insulin Glargine (Lantus) 50 units QHS SQ Last administered on 05/07/18at 21:14 ; Start 05/05/18 at 21:00 Fluvoxamine Maleate (Luvox) 125 mg QHS PO Last administered on 05/08/18at 20:40 ; Start 05/06/18 at 21:00; Stop 05/08/18 at 20:50; Status DC Fluvoxamine Maleate (Luvox) 25 mg QHS PO Last administered on 05/07/18at 21:01; Start 05/06/18 at 21:00; Stop 05/08/18 at 19:26; Status DC Trazodone HCl (Desyrel) 75 mg DAILY@0900 PO Last administered on 05/08/18at 09: 53; Start 05/08/18 at 09:00 Trazodone HCl (Desyrel) 50 mg BID@1300,1700 PO Last administered on 05/08/18at 18:29; Start 05/08/18 at 13:00 Fluvoxamine Maleate (Luvox) 75 mg QHS PO ; Start 05/08/18 at 21:00; Stop at 21:00; Status DC Fluvoxamine Maleate (Luvox) 150 mg HS PO Last administered on 05/08/18at 20:55; Start 05/08/18 at 21:00; Status UNV Active Scripts Active Reported Humalog (Insulin Lispro) 100 Unit/1 Ml Insuln.pen 0-7 Unit SQ TIDWMEALS BG 70-150= 0 units if eating; 0 units if not eating/HS BG 151-200= 3 units if eating; 0 units if not eating/HS BG 201-250= 4 units if eating; 2 units if not eating/HS BG 251-300= 6 units if eating; 3 units if not eating/HS BG 301-351= 7 units if eating; 4 units if not eating/HS BG >351= call provider for orders Fenofibrate (Fenofibrate Nanocrystallized) 48 Mg Tablet 48 Mg PO QHS Protonix (Pantoprazole Sodium) 40 Mg Tablet.dr 40 Mg PO DAILYAC Fluvoxamine Maleate 100 Mg Tablet 100 Mg PO HS Seroquel (Quetiapine Fumarate) 25 Mg Tablet 25 Mg PO BID Nystop (Nystatin) 60 Gm Powder 1 Porsche TP BID Lisinopril 5 Mg Tablet 5 Mg PO DAILY Nystop (Nystatin) 60 Gm Powder 1 Porsche TP PRN TID PRN Trazodone Hcl 50 Mg Tablet 50 Mg PO TIDWMEALS Clonazepam 0.5 Mg Tablet 0.5 Mg PO BID@1200,2100 Anusol-Hc (Hydrocortisone Acetate) 25 Mg Supp.rect 25 Mg RC PRN DAILY PRN Probiotic (Lactobacillus Acidophilus) 1 Each Capsule 1 Cap PO BID Levothyroxine Sodium 25 Mcg Tablet 25 Mcg PO DAILY06 Vitamin D3 (Cholecalciferol (Vitamin D3)) 50,000 Unit Capsule 50,000 Unit PO QMONTH Administer on the 15th of every Month I have reviewed the current psychotropics carefully including drug interactions. Risk benefit ratio favors no change other than as noted in my dictated progress note. Diagnosis: Problems: (1) Intellectual disability (2) Anxiety (3) Dementia (4) Impulse control disorder (5) Impulse control disorder (6) Obsessive compulsive disorder (7) Medical clearance for psychiatric admission (8) IMPULSE DISORDER, UNSPECIFIED (9) Dementia (10) DMII (diabetes mellitus, type 2) IDA LAINEZ MD May 08, 2018 21:08
[2018-05-09] MEDS: LEVOTHYROXINE 25 MCG TABLET. PO SCH (06:12)
[2018-05-09 06:22] VITALS: BP 131/60
[2018-05-09] MEDS: PANTOPRAZOLE 40 MG TABLET. PO SCH (08:19)
[2018-05-09] MEDS: INSULIN LISPRO 300 UNITS/3 ML INSULN.PEN. SQ SCH ×6 (08:20→17:28)
[2018-05-09] MEDS: LACTOBACILLUS RHAMNOSUS GG 1 CAPSULE. PO SCH ×2 (08:21→19:43)
[2018-05-09] MEDS: LISINOPRIL 5 MG TABLET. PO SCH (08:22)
[2018-05-09] MEDS: traZODone 50 MG TABLET. PO SCH ×3 (08:22→17:33)
[2018-05-09] MEDS: clonazePAM 0.5 MG TABLET PO SCH ×2 (08:23→19:43)
[2018-05-09] MEDS: NYSTATIN TOPICAL POWDER 15GM BOTTLE. TP SCH ×2 (08:23→19:43)
[2018-05-09 16:09] VITALS: BP 105/64
[2018-05-09] MEDS: OXcarbazepine 150 MG TABLET. PO SCH (17:33)
[2018-05-09] MEDS: FENOFIBRATE NANOCRYSTALLIZED 48 MG TABLET PO SCH (19:46)
[2018-05-09] MEDS: INSULIN GLARGINE 300 UNITS/3 ML INSULN.PEN. SQ SCH (19:51)
--- NOTE | 2018-05-09 20:58 | PDOC ---
Exam Note: Marcelo Note: Please also refer to the separate dictated note~for this date of service dictated separately.~Patient seen individually. Discussed the patient with Nursing staff reviewed the chart.~Reviewed interim history and current functioning. Reviewed vital signs,~Labs/ Radiology~and current medications noted below. Continue current treatment with the changes noted in the dictated addendum note Assessment: Vital Signs: Vital Signs Date Time Temp Pulse Resp B/P (MAP) Pulse Ox O2 Delivery O2 Flow Rate FiO2 05/09/18 16:09 97.7 82 18 105/64 (78) 95 05/08/18 16:28 Room Air I&O Intake and Output 05/09/18 06:59 Intake Total 840 ml Balance 840 ml Intake Oral 840 ml # Voids 1 # Bowel Movements 1 Labs: Laboratory Tests Test 05/09/18 07:26 05/09/18 11:50 05/09/18 17:04 05/09/18 19:10 Glucose (Fingerstick) 136 mg/dL (70-99) H 262 mg/dL (70-99) H 57 mg/dL (70-99) L 125 mg/dL (70-99) H Current Medications: Meds: Current Medications Acetaminophen (Tylenol) 650 mg PRN Q6HRS PRN PO PAIN / TEMP; Start 05/04/18 at 17:30 Multi-Ingredient Ointment (Analgesic [place]) 1 porsche PRN QID PRN TP MUSCLE PAIN; Start 05/04/18 at 17:30 Al Hydroxide/Mg Hydroxide (Mylanta Plus Xs) 15 ml PRN AFTMEALHC PRN PO DYSPEPSIA; Start 05/04/18 at 17:30 Magnesium Hydroxide (Milk Of Magnesia) 2,400 mg PRN QHS PRN PO CONSTIPATION; Start 05/04/18 at 17:30 Vitamin D (Vitamin D3) 50,000 unit QMONTH PO ; Start 06/03/18 at 09:00 Insulin Human Lispro (HumaLOG) 0-7 TIDWMEALS SQ ; Start 05/05/18 at 08:00; Stop 05/05/18 at 08:00; Status DC Nystatin (Nystop) 1 porsche BID TP Last administered on 05/09/18at 19:43; Start at 21:00 Nystatin (Nystop) 1 porsche PRN TID PRN TP RASH; Start 05/04/18 at 18:00 Fenofibrate (Tricor) 48 mg QHS PO Last administered on 05/09/18at 19:46; Start 05/04/18 at 21:00 Hydrocortisone (Proctosol-Hc) 1 porsche PRN BID PRN RC BURNING OR BLOOD IN RECTUM; Start 05/04/18 at 19:30 Lactobacillus Rhamnosus (Culturelle) 1 cap BID PO Last administered on at 19:43; Start 05/04/18 at 21:00 Levothyroxine Sodium (Synthroid) 25 mcg DAILY06 PO Last administered on 06:12; Start 05/05/18 at 06:00 Lisinopril (Prinivil) 5 mg DAILY PO Last administered on 05/09/18 08:22; Start 05/05/18 at 09:00 Pantoprazole Sodium (Protonix) 40 mg DAILYAC PO Last administered on 05/09/18 08:19; Start 05/05/18 at 07:30 Clonazepam (KlonoPIN) 0.5 mg BID@1200,2100 PO Last administered on 05/09/18 19 :43; Start 05/04/18 at 21:00 Fluvoxamine Maleate (Luvox) 100 mg QHS PO Last administered on 05/05/18at 20:07 ; Start 05/04/18 at 21:00; Stop 05/06/18 at 18:15; Status DC Quetiapine Fumarate (SEROquel) 25 mg BID PO Last administered on 05/05/18at 20: 07; Start 05/04/18 at 21:00; Stop 05/05/18 at 21:01; Status DC Trazodone HCl (Desyrel) 50 mg TIDWMEALS PO Last administered on 05/07/18at 17:52 ; Start 05/04/18 at 19:30; Stop 05/07/18 at 18:34; Status DC Insulin Human Lispro (HumaLOG) 0-7 UNITS TIDWMEALS SQ Last administered on 05/09at 13:37; Start 05/05/18 at 08:00 Insulin Human Lispro (HumaLOG) 10 units DAILY SQ Last administered on at 08:20; Start 05/06/18 at 09:00 Insulin Human Lispro (HumaLOG) 25 units NOON SQ Last administered on 05/09/18at 13:38; Start 05/05/18 at 12:00 Insulin Human Lispro (HumaLOG) 15 units 1700 SQ Last administered on 05/05/18at 17:26; Start 05/05/18 at 17:00 Insulin Glargine (Lantus) 50 units QHS SQ Last administered on 05/07/18at 21:14 ; Start 05/05/18 at 21:00 Fluvoxamine Maleate (Luvox) 125 mg QHS PO Last administered on 05/08/18at 20:40 ; Start 05/06/18 at 21:00; Stop 05/08/18 at 20:50; Status DC Fluvoxamine Maleate (Luvox) 25 mg QHS PO Last administered on 05/07/18at 21:01; Start 05/06/18 at 21:00; Stop 05/08/18 at 19:26; Status DC Trazodone HCl (Desyrel) 75 mg DAILY@0900 PO Last administered on 05/09/18at 08: 22; Start 05/08/18 at 09:00 Trazodone HCl (Desyrel) 50 mg BID@1300,1700 PO Last administered on 05/09/18 17:33; Start 05/08/18 at 13:00 Fluvoxamine Maleate (Luvox) 75 mg QHS PO ; Start 05/08/18 at 21:00; Stop at 21:00; Status DC Fluvoxamine Maleate (Luvox) 150 mg HS PO Last administered on 05/09/18 19:43; Start 05/08/18 at 21:00 Oxcarbazepine (Trileptal) 150 mg 0900,1700 PO Last administered on 05/09/18 17 :33; Start 05/09/18 at 17:00 Olanzapine (ZyPREXA ZYDIS) 2.5 mg PRN Q2HR PRN PO PSYCHOSIS Last administered on 05/09/18 17:33; Start 05/09/18 at 17:30 Active Scripts Active Reported Humalog (Insulin Lispro) 100 Unit/1 Ml Insuln.pen 0-7 Unit SQ TIDWMEALS BG 70-150= 0 units if eating; 0 units if not eating/HS BG 151-200= 3 units if eating; 0 units if not eating/HS BG 201-250= 4 units if eating; 2 units if not eating/HS BG 251-300= 6 units if eating; 3 units if not eating/HS BG 301-351= 7 units if eating; 4 units if not eating/HS BG >351= call provider for orders Fenofibrate (Fenofibrate Nanocrystallized) 48 Mg Tablet 48 Mg PO QHS Protonix (Pantoprazole Sodium) 40 Mg Tablet.dr 40 Mg PO DAILYAC Fluvoxamine Maleate 100 Mg Tablet 100 Mg PO HS Seroquel (Quetiapine Fumarate) 25 Mg Tablet 25 Mg PO BID Nystop (Nystatin) 60 Gm Powder 1 Porsche TP BID Lisinopril 5 Mg Tablet 5 Mg PO DAILY Nystop (Nystatin) 60 Gm Powder 1 Porsche TP PRN TID PRN Trazodone Hcl 50 Mg Tablet 50 Mg PO TIDWMEALS Clonazepam 0.5 Mg Tablet 0.5 Mg PO BID@1200,2100 Anusol-Hc (Hydrocortisone Acetate) 25 Mg Supp.rect 25 Mg RC PRN DAILY PRN Probiotic (Lactobacillus Acidophilus) 1 Each Capsule 1 Cap PO BID Levothyroxine Sodium 25 Mcg Tablet 25 Mcg PO DAILY06 Vitamin D3 (Cholecalciferol (Vitamin D3)) 50,000 Unit Capsule 50,000 Unit PO QMONTH Administer on the 15th of every Month I have reviewed the current psychotropics carefully including drug interactions. Risk benefit ratio favors no change other than as noted in my dictated progress note. Diagnosis: Problems: (1) Intellectual disability (2) Anxiety (3) Dementia (4) Impulse control disorder (5) Impulse control disorder (6) Obsessive compulsive disorder (7) Medical clearance for psychiatric admission (8) IMPULSE DISORDER, UNSPECIFIED (9) Dementia (10) DMII (diabetes mellitus, type 2) IDA LAINEZ MD May 09, 2018 20:58
[2018-05-10] MEDS: LEVOTHYROXINE 25 MCG TABLET. PO SCH (05:33)
[2018-05-10 05:58] VITALS: BP 141/66
[2018-05-10] MEDS: NYSTATIN TOPICAL POWDER 15GM BOTTLE. TP SCH ×2 (09:00→19:21)
[2018-05-10] MEDS: OXcarbazepine 150 MG TABLET. PO SCH ×2 (09:18→18:46)
[2018-05-10] MEDS: LISINOPRIL 5 MG TABLET. PO SCH (09:18)
[2018-05-10] MEDS: PANTOPRAZOLE 40 MG TABLET. PO SCH (09:18)
[2018-05-10] MEDS: traZODone 50 MG TABLET. PO SCH ×3 (09:19→18:46)
[2018-05-10] MEDS: LACTOBACILLUS RHAMNOSUS GG 1 CAPSULE. PO SCH ×2 (09:36→19:21)
[2018-05-10] MEDS: INSULIN LISPRO 300 UNITS/3 ML INSULN.PEN. SQ SCH ×5 (09:37→18:48)
[2018-05-10] MEDS: clonazePAM 0.5 MG TABLET PO SCH ×2 (12:45→19:21)
[2018-05-10 16:08] VITALS: BP 108/54
[2018-05-10] MEDS: FENOFIBRATE NANOCRYSTALLIZED 48 MG TABLET PO SCH (19:21)
[2018-05-10] MEDS: INSULIN GLARGINE 300 UNITS/3 ML INSULN.PEN. SQ SCH (19:23)
--- NOTE | 2018-05-10 20:46 | PDOC ---
Exam Note: Marcelo Note: Please also refer to the separate dictated note~for this date of service dictated separately.~Patient seen individually. Discussed the patient with Nursing staff reviewed the chart.~Reviewed interim history and current functioning. Reviewed vital signs,~Labs/ Radiology~and current medications noted below. Continue current treatment with the changes noted in the dictated addendum note Assessment: Vital Signs: Vital Signs Date Time Temp Pulse Resp B/P (MAP) Pulse Ox O2 Delivery O2 Flow Rate FiO2 05/10/18 16:08 98.3 65 18 108/54 (72) 98 05/08/18 16:28 Room Air I&O Intake and Output 05/10/18 06:59 Intake Total 1440 ml Balance 1440 ml Intake Oral 1440 ml # Bowel Movements 1 Labs: Laboratory Tests Test 05/10/18 07:38 05/10/18 11:44 05/10/18 16:25 05/10/18 19:16 Glucose (Fingerstick) 223 mg/dL (70-99) H 136 mg/dL (70-99) H 239 mg/dL (70-99) H 230 mg/dL (70-99) H Current Medications: Meds: Current Medications Acetaminophen (Tylenol) 650 mg PRN Q6HRS PRN PO PAIN / TEMP; Start 05/04/18 at 17:30 Multi-Ingredient Ointment (Analgesic [place]) 1 porsche PRN QID PRN TP MUSCLE PAIN; Start 05/04/18 at 17:30 Al Hydroxide/Mg Hydroxide (Mylanta Plus Xs) 15 ml PRN AFTMEALHC PRN PO DYSPEPSIA; Start 05/04/18 at 17:30 Magnesium Hydroxide (Milk Of Magnesia) 2,400 mg PRN QHS PRN PO CONSTIPATION; Start 05/04/18 at 17:30 Vitamin D (Vitamin D3) 50,000 unit QMONTH PO ; Start 06/03/18 at 09:00 Insulin Human Lispro (HumaLOG) 0-7 TIDWMEALS SQ ; Start 05/05/18 at 08:00; Stop 05/05/18 at 08:00; Status DC Nystatin (Nystop) 1 porsche BID TP Last administered on 05/10/18at 19:21; Start at 21:00 Nystatin (Nystop) 1 porsche PRN TID PRN TP RASH; Start 05/04/18 at 18:00 Fenofibrate (Tricor) 48 mg QHS PO Last administered on 05/10/18 19:21; Start 05/04/18 at 21:00 Hydrocortisone (Proctosol-Hc) 1 porsche PRN BID PRN RC BURNING OR BLOOD IN RECTUM; Start 05/04/18 at 19:30 Lactobacillus Rhamnosus (Culturelle) 1 cap BID PO Last administered on at 19:21; Start 05/04/18 at 21:00 Levothyroxine Sodium (Synthroid) 25 mcg DAILY06 PO Last administered on at 05:33; Start 05/05/18 at 06:00 Lisinopril (Prinivil) 5 mg DAILY PO Last administered on 05/10/18 09:18; Start 05/05/18 at 09:00 Pantoprazole Sodium (Protonix) 40 mg DAILYAC PO Last administered on 05/10/18at 09:18; Start 05/05/18 at 07:30 Clonazepam (KlonoPIN) 0.5 mg BID@1200,2100 PO Last administered on 05/10/18at 19 :21; Start 05/04/18 at 21:00 Fluvoxamine Maleate (Luvox) 100 mg QHS PO Last administered on 05/05/18at 20:07 ; Start 05/04/18 at 21:00; Stop 05/06/18 at 18:15; Status DC Quetiapine Fumarate (SEROquel) 25 mg BID PO Last administered on 05/05/18 20: 07; Start 05/04/18 at 21:00; Stop 05/05/18 at 21:01; Status DC Trazodone HCl (Desyrel) 50 mg TIDWMEALS PO Last administered on 05/07/18at 17:52 ; Start 05/04/18 at 19:30; Stop 05/07/18 at 18:34; Status DC Insulin Human Lispro (HumaLOG) 0-7 UNITS TIDWMEALS SQ Last administered on 05/10at 09:37; Start 05/05/18 at 08:00; Stop 05/10/18 at 18:43; Status DC Insulin Human Lispro (HumaLOG) 10 units DAILY SQ Last administered on at 09:38; Start 05/06/18 at 09:00 Insulin Human Lispro (HumaLOG) 25 units NOON SQ Last administered on 05/09/18 13:38; Start 05/05/18 at 12:00 Insulin Human Lispro (HumaLOG) 15 units 1700 SQ Last administered on 05/10/18 18:48; Start 05/05/18 at 17:00 Insulin Glargine (Lantus) 50 units QHS SQ Last administered on 05/10/18 19:23 ; Start 05/05/18 at 21:00 Fluvoxamine Maleate (Luvox) 125 mg QHS PO Last administered on 05/08/18 20:40 ; Start 05/06/18 at 21:00; Stop 05/08/18 at 20:50; Status DC Fluvoxamine Maleate (Luvox) 25 mg QHS PO Last administered on 05/07/18 21:01; Start 05/06/18 at 21:00; Stop 05/08/18 at 19:26; Status DC Trazodone HCl (Desyrel) 75 mg DAILY@0900 PO Last administered on 05/10/18 09: 19; Start 05/08/18 at 09:00 Trazodone HCl (Desyrel) 50 mg BID@1300,1700 PO Last administered on 05/10/18 18:46; Start 05/08/18 at 13:00 Fluvoxamine Maleate (Luvox) 75 mg QHS PO ; Start 05/08/18 at 21:00; Stop at 21:00; Status DC Fluvoxamine Maleate (Luvox) 150 mg HS PO Last administered on 05/10/18 19:21; Start 05/08/18 at 21:00 Oxcarbazepine (Trileptal) 150 mg 0900,1700 PO Last administered on 05/10/18 18 :46; Start 05/09/18 at 17:00 Olanzapine (ZyPREXA ZYDIS) 2.5 mg PRN Q2HR PRN PO PSYCHOSIS Last administered on 05/09/18 17:33; Start 05/09/18 at 17:30 Active Scripts Active Reported Humalog (Insulin Lispro) 100 Unit/1 Ml Insuln.pen 0-7 Unit SQ TIDWMEALS BG 70-150= 0 units if eating; 0 units if not eating/HS BG 151-200= 3 units if eating; 0 units if not eating/HS BG 201-250= 4 units if eating; 2 units if not eating/HS BG 251-300= 6 units if eating; 3 units if not eating/HS BG 301-351= 7 units if eating; 4 units if not eating/HS BG >351= call provider for orders Fenofibrate (Fenofibrate Nanocrystallized) 48 Mg Tablet 48 Mg PO QHS Protonix (Pantoprazole Sodium) 40 Mg Tablet.dr 40 Mg PO DAILYAC Fluvoxamine Maleate 100 Mg Tablet 100 Mg PO HS Seroquel (Quetiapine Fumarate) 25 Mg Tablet 25 Mg PO BID Nystop (Nystatin) 60 Gm Powder 1 Porsche TP BID Lisinopril 5 Mg Tablet 5 Mg PO DAILY Nystop (Nystatin) 60 Gm Powder 1 Porsche TP PRN TID PRN Trazodone Hcl 50 Mg Tablet 50 Mg PO TIDWMEALS Clonazepam 0.5 Mg Tablet 0.5 Mg PO BID@1200,2100 Anusol-Hc (Hydrocortisone Acetate) 25 Mg Supp.rect 25 Mg RC PRN DAILY PRN Probiotic (Lactobacillus Acidophilus) 1 Each Capsule 1 Cap PO BID Levothyroxine Sodium 25 Mcg Tablet 25 Mcg PO DAILY06 Vitamin D3 (Cholecalciferol (Vitamin D3)) 50,000 Unit Capsule 50,000 Unit PO QMONTH Administer on the 15th of every Month I have reviewed the current psychotropics carefully including drug interactions. Risk benefit ratio favors no change other than as noted in my dictated progress note. Diagnosis: Problems: (1) Intellectual disability (2) Anxiety (3) Dementia (4) Impulse control disorder (5) Impulse control disorder (6) Obsessive compulsive disorder (7) Medical clearance for psychiatric admission (8) IMPULSE DISORDER, UNSPECIFIED (9) Dementia (10) DMII (diabetes mellitus, type 2) IDA LAINEZ MD May 10, 2018 20:46
[2018-05-11] MEDS: LEVOTHYROXINE 25 MCG TABLET. PO SCH (05:53)
[2018-05-11 06:18] VITALS: BP 112/57
[2018-05-11] MEDS: traZODone 50 MG TABLET. PO SCH ×3 (07:26→18:14)
[2018-05-11] MEDS: LACTOBACILLUS RHAMNOSUS GG 1 CAPSULE. PO SCH ×2 (07:26→19:39)
[2018-05-11] MEDS: OXcarbazepine 150 MG TABLET. PO SCH ×2 (07:26→18:14)
[2018-05-11] MEDS: PANTOPRAZOLE 40 MG TABLET. PO SCH (07:26)
[2018-05-11] MEDS: LISINOPRIL 5 MG TABLET. PO SCH (07:27)
[2018-05-11] MEDS: NYSTATIN TOPICAL POWDER 15GM BOTTLE. TP SCH ×2 (07:27→19:40)
[2018-05-11 08:10] LABS: BASO # 0.1 x10^3/uL (0.0-0.2); BASO % 1 % (0-3); EOS # 0.6 x10^3/uL (0.0-0.7); EOS % 6 % (0-3); HEMATOCRIT 36.1 % (36.0-47.0); HEMOGLOBIN 12.3 g/dL (12.0-15.5); LYMPH # 3.2 x10^3/uL (1.0-4.8); LYMPH % 35 % (24-48); MEAN CORPUSCULAR HEMOGLOBIN 31 pg (25-35); MEAN CORPUSCULAR HGB CONC 34 g/dL (31-37); MEAN CORPUSCULAR VOLUME 90 fL (79-100); MONO # 0.4 x10^3/uL (0.0-1.1); MONO % 5 % (0-9); NEUT # 5.1 x10^3uL (1.8-7.7); NEUT % 54 % (31-73); PLATELET COUNT 138 x10^3/uL (140-400); RED BLOOD COUNT 4.02 x10^6/uL (3.50-5.40); RED CELL DISTRIBUTION WIDTH 14.9 % (11.5-14.5); WHITE BLOOD COUNT 9.4 x10^3/uL (4.0-11.0)
[2018-05-11 08:16] LABS: ALBUMIN 3.3 g/dL (3.4-5.0); CALCIUM 8.9 mg/dL (8.5-10.1); CREATININE 0.9 mg/dL (0.6-1.0); GFR 61.7; POTASSIUM 3.7 mmol/L (3.5-5.1); TOTAL BILIRUBIN 0.4 mg/dL (0.2-1.0); TOTAL PROTEIN 6.7 g/dL (6.4-8.2)
[2018-05-11] MEDS: INSULIN LISPRO 300 UNITS/3 ML INSULN.PEN. SQ SCH ×3 (09:00→18:20)
--- NOTE | 2018-05-11 11:28 | PN ---
DATE: 05/08/2018 This is a late entry for 05/08/2018 and covers elements not covered in my initial note. SUBJECTIVE: I met with the patient in the evening. The patient slept 6-1/4 hours previous evening. She remains extremely obsessive, repetitive, constantly asking me about when she be discharged, following me around the unit, later banging on the nursing glass doors, rattling the doors, aggressive, disruptive, loud and intrusive. REVIEW OF SYSTEMS: Ambulation impaired with walker. No CV, , pulmonary, eye, ENT system symptoms on review. Reliability poor. MENTAL STATUS EXAM: Oriented to herself and situation. Speech coherent, persistent loud at times. Abstraction fair, computation impaired, language function intact, attention span short. Mood and affect remain somewhat labile. LABORATORY DATA: Reviewed. IMPRESSION: Unchanged from initial note. Bipolar 1 disorder, mixed; OCD; intellectual disability. PLAN: Continue psychotropics. Increase Luvox to 150 mg daily, in 25 mg increments. Continue rest per initial note. MAN Stuart LAINEZ MD DR: YO/bakari JOB#: [id number] / [id number]
--- NOTE | 2018-05-11 11:28 | PN ---
DATE: 05/09/2018 PSYCHIATRIC PROGRESS NOTE This is a late entry 05/09/2018, covers elements not covered in my initial note. SUBJECTIVE: I met with the patient in the evening, staffed at treatment team meeting with the entire team in the morning and the patient's sister, Ricky, attended together with Nga, the patient's [id number]. This is a very lengthy discussion about the patient's diagnoses, family's desire not to have her on any mood stabilizer, atypical antipsychotic. The patient has been loud, obsessive, yelling, banging on the doors and windows, obsessed about discharge plans, following me around the unit in the evening per long time, constantly asking the same questions. Extremely labile in her mood. REVIEW OF SYSTEMS: Ambulation impaired with walker. No CV, , pulmonary, eye system symptoms on review. MENTAL STATUS EXAM: Oriented to herself and situation. Speech coherent, rapid, loud at times. Abstraction fair, computation impaired, language function intact, attention span short. Mood and affect remain labile, obsessive. LABORATORY DATA: Reviewed. IMPRESSION: Bipolar 1 disorder, mixed with psychotic features, obsessive-compulsive disorder, intellectual disability; impulse control disorder. PLAN: Start Trileptal 150 mg twice a day since family states she did very poorly on Depakote. They do not want her on atypical antipsychotics. Continue rest unchanged from initial note, but she may need some atypical antipsychotic to help stabilize her mood. We will have to see depending on how she does on the Trileptal. IDA LAINEZ MD DR: YO/bakari JOB#: [id number] / [id number]
[2018-05-11] MEDS: clonazePAM 0.5 MG TABLET PO SCH ×2 (12:27→19:39)
[2018-05-11 16:13] VITALS: BP 106/66
[2018-05-11] MEDS: FENOFIBRATE NANOCRYSTALLIZED 48 MG TABLET PO SCH (19:42)
[2018-05-11] MEDS: INSULIN GLARGINE 300 UNITS/3 ML INSULN.PEN. SQ SCH (19:43)
--- NOTE | 2018-05-11 22:51 | PDOC ---
Exam Note: Marcelo Note: Please also refer to the separate dictated note~for this date of service dictated separately.~Patient seen individually. Discussed the patient with Nursing staff reviewed the chart.~Reviewed interim history and current functioning. Reviewed vital signs,~Labs/ Radiology~and current medications noted below. Continue current treatment with the changes noted in the dictated addendum note Assessment: Vital Signs: Vital Signs Date Time Temp Pulse Resp B/P (MAP) Pulse Ox O2 Delivery O2 Flow Rate FiO2 05/11/18 16:13 97.3 72 18 106/66 (79) 99 05/08/18 16:28 Room Air I&O Intake and Output 05/11/18 07:00 Intake Total 780 ml Balance 780 ml Intake Oral 780 ml # Bowel Movements 1 Labs: Laboratory Tests Test 05/11/18 07:22 05/11/18 07:47 05/11/18 11:52 05/11/18 16:58 Glucose (Fingerstick) 90 mg/dL (70-99) 193 mg/dL (70-99) H 94 mg/dL (70-99) White Blood Count 9.4 x10^3/uL (4.0-11.0) Red Blood Count 4.02 x10^6/uL (3.50-5.40) Hemoglobin 12.3 g/dL (12.0-15.5) Hematocrit 36.1 % (36.0-47.0) Mean Corpuscular Volume 90 fL (79-100) Mean Corpuscular Hemoglobin 31 pg (25-35) Mean Corpuscular Hemoglobin Concent 34 g/dL (31-37) Red Cell Distribution Width 14.9 % (11.5-14.5) H Platelet Count 138 x10^3/uL (140-400) L Neutrophils (%) (Auto) 54 % (31-73) Lymphocytes (%) (Auto) 35 % (24-48) Monocytes (%) (Auto) 5 % (0-9) Eosinophils (%) (Auto) 6 % (0-3) H Basophils (%) (Auto) 1 % (0-3) Neutrophils # (Auto) 5.1 x10^3uL (1.8-7.7) Lymphocytes # (Auto) 3.2 x10^3/uL (1.0-4.8) Monocytes # (Auto) 0.4 x10^3/uL (0.0-1.1) Eosinophils # (Auto) 0.6 x10^3/uL (0.0-0.7) Basophils # (Auto) 0.1 x10^3/uL (0.0-0.2) Sodium Level 141 mmol/L (136-145) Potassium Level 3.7 mmol/L (3.5-5.1) Chloride Level 105 mmol/L (98-107) Carbon Dioxide Level 31 mmol/L (21-32) Anion Gap 5 (6-14) L Blood Urea Nitrogen 11 mg/dL (7-20) Creatinine 0.9 mg/dL (0.6-1.0) Estimated GFR (Cockcroft-Gault) 61.7 BUN/Creatinine Ratio 12 (6-20) Glucose Level 100 mg/dL (70-99) H Calcium Level 8.9 mg/dL (8.5-10.1) Total Bilirubin 0.4 mg/dL (0.2-1.0) Aspartate Amino Transferase (AST) 17 U/L (15-37) Alanine Aminotransferase (ALT) 26 U/L (14-59) Alkaline Phosphatase 61 U/L (46-116) Total Protein 6.7 g/dL (6.4-8.2) Albumin 3.3 g/dL (3.4-5.0) L Albumin/Globulin Ratio 1.0 (1.0-1.7) Test 05/11/18 19:12 Glucose (Fingerstick) 97 mg/dL (70-99) Current Medications: Meds: Current Medications Acetaminophen (Tylenol) 650 mg PRN Q6HRS PRN PO PAIN / TEMP; Start 05/04/18 at 17:30 Multi-Ingredient Ointment (Analgesic Morral) 1 porsche PRN QID PRN TP MUSCLE PAIN; Start 05/04/18 at 17:30 Al Hydroxide/Mg Hydroxide (Mylanta Plus Xs) 15 ml PRN AFTMEALHC PRN PO DYSPEPSIA; Start 05/04/18 at 17:30 Magnesium Hydroxide (Milk Of Magnesia) 2,400 mg PRN QHS PRN PO CONSTIPATION; Start 05/04/18 at 17:30 Vitamin D (Vitamin D3) 50,000 unit QMONTH PO ; Start 06/03/18 at 09:00 Insulin Human Lispro (HumaLOG) 0-7 TIDWMEALS SQ ; Start 05/05/18 at 08:00; Stop 05/05/18 at 08:00; Status DC Nystatin (Nystop) 1 porsche BID TP Last administered on 05/11/18at 19:40; Start at 21:00 Nystatin (Nystop) 1 porsche PRN TID PRN TP RASH; Start 05/04/18 at 18:00 Fenofibrate (Tricor) 48 mg QHS PO Last administered on 05/11/18 19:42; Start 05/04/18 at 21:00 Hydrocortisone (Proctosol-Hc) 1 porsche PRN BID PRN RC BURNING OR BLOOD IN RECTUM; Start 05/04/18 at 19:30 Lactobacillus Rhamnosus (Culturelle) 1 cap BID PO Last administered on 19:39; Start 05/04/18 at 21:00 Levothyroxine Sodium (Synthroid) 25 mcg DAILY06 PO Last administered on at 05:53; Start 05/05/18 at 06:00 Lisinopril (Prinivil) 5 mg DAILY PO Last administered on 05/11/18 07:27; Start 05/05/18 at 09:00 Pantoprazole Sodium (Protonix) 40 mg DAILYAC PO Last administered on 05/11/18 07:26; Start 05/05/18 at 07:30 Clonazepam (KlonoPIN) 0.5 mg BID@1200,2100 PO Last administered on 05/11/18 19 :39; Start 05/04/18 at 21:00 Fluvoxamine Maleate (Luvox) 100 mg QHS PO Last administered on 05/05/18at 20:07 ; Start 05/04/18 at 21:00; Stop 05/06/18 at 18:15; Status DC Quetiapine Fumarate (SEROquel) 25 mg BID PO Last administered on 05/05/18 20: 07; Start 05/04/18 at 21:00; Stop 05/05/18 at 21:01; Status DC Trazodone HCl (Desyrel) 50 mg TIDWMEALS PO Last administered on 05/07/18 17:52 ; Start 05/04/18 at 19:30; Stop 05/07/18 at 18:34; Status DC Insulin Human Lispro (HumaLOG) 0-7 UNITS TIDWMEALS SQ Last administered on 05/10at 09:37; Start 05/05/18 at 08:00; Stop 05/10/18 at 18:43; Status DC Insulin Human Lispro (HumaLOG) 10 units DAILY SQ Last administered on at 09:00; Start 05/06/18 at 09:00 Insulin Human Lispro (HumaLOG) 25 units NOON SQ Last administered on 05/11/18at 12:00; Start 05/05/18 at 12:00 Insulin Human Lispro (HumaLOG) 15 units 1700 SQ Last administered on 05/11/18at 18:20; Start 05/05/18 at 17:00 Insulin Glargine (Lantus) 50 units QHS SQ Last administered on 05/11/18at 19:43 ; Start 05/05/18 at 21:00 Fluvoxamine Maleate (Luvox) 125 mg QHS PO Last administered on 05/08/18at 20:40 ; Start 05/06/18 at 21:00; Stop 05/08/18 at 20:50; Status DC Fluvoxamine Maleate (Luvox) 25 mg QHS PO Last administered on 05/07/18at 21:01; Start 05/06/18 at 21:00; Stop 05/08/18 at 19:26; Status DC Trazodone HCl (Desyrel) 75 mg DAILY@0900 PO Last administered on 05/11/18at 07: 26; Start 05/08/18 at 09:00 Trazodone HCl (Desyrel) 50 mg BID@1300,1700 PO Last administered on 05/11/18at 18:14; Start 05/08/18 at 13:00 Fluvoxamine Maleate (Luvox) 75 mg QHS PO ; Start 05/08/18 at 21:00; Stop at 21:00; Status DC Fluvoxamine Maleate (Luvox) 150 mg HS PO Last administered on 05/11/18at 19:39; Start 05/08/18 at 21:00 Oxcarbazepine (Trileptal) 150 mg 0900,1700 PO Last administered on 05/11/18at 18 :14; Start 05/09/18 at 17:00 Olanzapine (ZyPREXA ZYDIS) 2.5 mg PRN Q2HR PRN PO PSYCHOSIS Last administered on 05/11/18at 18:14; Start 05/09/18 at 17:30 Active Scripts Active Reported Humalog (Insulin Lispro) 100 Unit/1 Ml Insuln.pen 0-7 Unit SQ TIDWMEALS BG 70-150= 0 units if eating; 0 units if not eating/HS BG 151-200= 3 units if eating; 0 units if not eating/HS BG 201-250= 4 units if eating; 2 units if not eating/HS BG 251-300= 6 units if eating; 3 units if not eating/HS BG 301-351= 7 units if eating; 4 units if not eating/HS BG >351= call provider for orders Fenofibrate (Fenofibrate Nanocrystallized) 48 Mg Tablet 48 Mg PO QHS Protonix (Pantoprazole Sodium) 40 Mg Tablet.dr 40 Mg PO DAILYAC Fluvoxamine Maleate 100 Mg Tablet 100 Mg PO HS Seroquel (Quetiapine Fumarate) 25 Mg Tablet 25 Mg PO BID Nystop (Nystatin) 60 Gm Powder 1 Porsche TP BID Lisinopril 5 Mg Tablet 5 Mg PO DAILY Nystop (Nystatin) 60 Gm Powder 1 Porsche TP PRN TID PRN Trazodone Hcl 50 Mg Tablet 50 Mg PO TIDWMEALS Clonazepam 0.5 Mg Tablet 0.5 Mg PO BID@1200,2100 Anusol-Hc (Hydrocortisone Acetate) 25 Mg Supp.rect 25 Mg RC PRN DAILY PRN Probiotic (Lactobacillus Acidophilus) 1 Each Capsule 1 Cap PO BID Levothyroxine Sodium 25 Mcg Tablet 25 Mcg PO DAILY06 Vitamin D3 (Cholecalciferol (Vitamin D3)) 50,000 Unit Capsule 50,000 Unit PO QMONTH Administer on the 15th of every Month I have reviewed the current psychotropics carefully including drug interactions. Risk benefit ratio favors no change other than as noted in my dictated progress note. Diagnosis: Problems: (1) Intellectual disability (2) Anxiety (3) Dementia (4) Impulse control disorder (5) Obsessive compulsive disorder (6) Medical clearance for psychiatric admission (7) IMPULSE DISORDER, UNSPECIFIED IDA LAINEZ MD May 11, 2018 22:51
[2018-05-12] MEDS: LEVOTHYROXINE 25 MCG TABLET. PO SCH (05:32)
[2018-05-12 06:12] VITALS: BP 126/67
[2018-05-12] MEDS: OXcarbazepine 150 MG TABLET. PO SCH ×2 (07:49→18:38)
[2018-05-12] MEDS: LISINOPRIL 5 MG TABLET. PO SCH (07:49)
[2018-05-12] MEDS: NYSTATIN TOPICAL POWDER 15GM BOTTLE. TP SCH ×2 (07:50→19:58)
[2018-05-12] MEDS: traZODone 50 MG TABLET. PO SCH ×3 (07:50→18:38)
[2018-05-12] MEDS: LACTOBACILLUS RHAMNOSUS GG 1 CAPSULE. PO SCH ×2 (07:50→19:53)
[2018-05-12] MEDS: PANTOPRAZOLE 40 MG TABLET. PO SCH (07:50)
[2018-05-12] MEDS: INSULIN LISPRO 300 UNITS/3 ML INSULN.PEN. SQ SCH ×3 (09:00→18:42)
[2018-05-12] MEDS: clonazePAM 0.5 MG TABLET PO SCH ×2 (13:33→19:55)
[2018-05-12 16:18] VITALS: BP 117/65
[2018-05-12] MEDS: FENOFIBRATE NANOCRYSTALLIZED 48 MG TABLET PO SCH (19:55)
[2018-05-12] MEDS: INSULIN GLARGINE 300 UNITS/3 ML INSULN.PEN. SQ SCH (20:07)
--- NOTE | 2018-05-12 21:00 | PDOC ---
Exam Note: Marcelo Note: Please also refer to the separate dictated note~for this date of service dictated separately.~Patient seen individually. Discussed the patient with Nursing staff reviewed the chart.~Reviewed interim history and current functioning. Reviewed vital signs,~Labs/ Radiology~and current medications noted below. Continue current treatment with the changes noted in the dictated addendum note Assessment: Vital Signs: Vital Signs Date Time Temp Pulse Resp B/P (MAP) Pulse Ox O2 Delivery O2 Flow Rate FiO2 05/12/18 16:18 98.9 83 21 117/65 (82) 98 05/08/18 16:28 Room Air I&O Intake and Output 05/12/18 07:00 Intake Total 1080 ml Balance 1080 ml Intake Oral 1080 ml # Bowel Movements 1 Labs: Laboratory Tests Test 05/12/18 07:20 05/12/18 12:03 05/12/18 16:31 05/12/18 19:47 Glucose (Fingerstick) 74 mg/dL (70-99) 148 mg/dL (70-99) H 95 mg/dL (70-99) 176 mg/dL (70-99) H Current Medications: Meds: Current Medications Acetaminophen (Tylenol) 650 mg PRN Q6HRS PRN PO PAIN / TEMP; Start 05/04/18 at 17:30 Multi-Ingredient Ointment (Analgesic Williams) 1 porsche PRN QID PRN TP MUSCLE PAIN; Start 05/04/18 at 17:30 Al Hydroxide/Mg Hydroxide (Mylanta Plus Xs) 15 ml PRN AFTMEALHC PRN PO DYSPEPSIA; Start 05/04/18 at 17:30 Magnesium Hydroxide (Milk Of Magnesia) 2,400 mg PRN QHS PRN PO CONSTIPATION; Start 05/04/18 at 17:30 Vitamin D (Vitamin D3) 50,000 unit QMONTH PO ; Start 06/03/18 at 09:00 Insulin Human Lispro (HumaLOG) 0-7 TIDWMEALS SQ ; Start 05/05/18 at 08:00; Stop 05/05/18 at 08:00; Status DC Nystatin (Nystop) 1 porsche BID TP Last administered on 05/12/18at 19:58; Start at 21:00 Nystatin (Nystop) 1 porsche PRN TID PRN TP RASH; Start 05/04/18 at 18:00 Fenofibrate (Tricor) 48 mg QHS PO Last administered on 05/12/18 19:55; Start 05/04/18 at 21:00 Hydrocortisone (Proctosol-Hc) 1 porsche PRN BID PRN RC BURNING OR BLOOD IN RECTUM; Start 05/04/18 at 19:30 Lactobacillus Rhamnosus (Culturelle) 1 cap BID PO Last administered on 19:53; Start 05/04/18 at 21:00 Levothyroxine Sodium (Synthroid) 25 mcg DAILY06 PO Last administered on 05:32; Start 05/05/18 at 06:00 Lisinopril (Prinivil) 5 mg DAILY PO Last administered on 05/12/18 07:49; Start 05/05/18 at 09:00 Pantoprazole Sodium (Protonix) 40 mg DAILYAC PO Last administered on 05/12/18at 07:50; Start 05/05/18 at 07:30 Clonazepam (KlonoPIN) 0.5 mg BID@1200,2100 PO Last administered on 05/12/18at 19 :55; Start 05/04/18 at 21:00 Fluvoxamine Maleate (Luvox) 100 mg QHS PO Last administered on 05/05/18at 20:07 ; Start 05/04/18 at 21:00; Stop 05/06/18 at 18:15; Status DC Quetiapine Fumarate (SEROquel) 25 mg BID PO Last administered on 05/05/18at 20: 07; Start 05/04/18 at 21:00; Stop 05/05/18 at 21:01; Status DC Trazodone HCl (Desyrel) 50 mg TIDWMEALS PO Last administered on 05/07/18at 17:52 ; Start 05/04/18 at 19:30; Stop 05/07/18 at 18:34; Status DC Insulin Human Lispro (HumaLOG) 0-7 UNITS TIDWMEALS SQ Last administered on 05/10at 09:37; Start 05/05/18 at 08:00; Stop 05/10/18 at 18:43; Status DC Insulin Human Lispro (HumaLOG) 10 units DAILY SQ Last administered on at 09:00; Start 05/06/18 at 09:00 Insulin Human Lispro (HumaLOG) 25 units NOON SQ Last administered on 05/12/18 12:00; Start 05/05/18 at 12:00 Insulin Human Lispro (HumaLOG) 15 units 1700 SQ Last administered on 05/12/18at 18:42; Start 05/05/18 at 17:00 Insulin Glargine (Lantus) 50 units QHS SQ Last administered on 05/12/18at 20:07 ; Start 05/05/18 at 21:00 Fluvoxamine Maleate (Luvox) 125 mg QHS PO Last administered on 05/08/18at 20:40 ; Start 05/06/18 at 21:00; Stop 05/08/18 at 20:50; Status DC Fluvoxamine Maleate (Luvox) 25 mg QHS PO Last administered on 05/07/18 21:01; Start 05/06/18 at 21:00; Stop 05/08/18 at 19:26; Status DC Trazodone HCl (Desyrel) 75 mg DAILY@0900 PO Last administered on 05/12/18at 07: 50; Start 05/08/18 at 09:00 Trazodone HCl (Desyrel) 50 mg BID@1300,1700 PO Last administered on 05/12/18 18:38; Start 05/08/18 at 13:00 Fluvoxamine Maleate (Luvox) 75 mg QHS PO ; Start 05/08/18 at 21:00; Stop at 21:00; Status DC Fluvoxamine Maleate (Luvox) 150 mg HS PO Last administered on 05/12/18 19:53; Start 05/08/18 at 21:00 Oxcarbazepine (Trileptal) 150 mg 0900,1700 PO Last administered on 05/12/18 18 :38; Start 05/09/18 at 17:00 Olanzapine (ZyPREXA ZYDIS) 2.5 mg PRN Q2HR PRN PO PSYCHOSIS Last administered on 05/11/18 18:14; Start 05/09/18 at 17:30 Active Scripts Active Reported Humalog (Insulin Lispro) 100 Unit/1 Ml Insuln.pen 0-7 Unit SQ TIDWMEALS BG 70-150= 0 units if eating; 0 units if not eating/HS BG 151-200= 3 units if eating; 0 units if not eating/HS BG 201-250= 4 units if eating; 2 units if not eating/HS BG 251-300= 6 units if eating; 3 units if not eating/HS BG 301-351= 7 units if eating; 4 units if not eating/HS BG >351= call provider for orders Fenofibrate (Fenofibrate Nanocrystallized) 48 Mg Tablet 48 Mg PO QHS Protonix (Pantoprazole Sodium) 40 Mg Tablet.dr 40 Mg PO DAILYAC Fluvoxamine Maleate 100 Mg Tablet 100 Mg PO HS Seroquel (Quetiapine Fumarate) 25 Mg Tablet 25 Mg PO BID Nystop (Nystatin) 60 Gm Powder 1 Porsche TP BID Lisinopril 5 Mg Tablet 5 Mg PO DAILY Nystop (Nystatin) 60 Gm Powder 1 Porsche TP PRN TID PRN Trazodone Hcl 50 Mg Tablet 50 Mg PO TIDWMEALS Clonazepam 0.5 Mg Tablet 0.5 Mg PO BID@1200,2100 Anusol-Hc (Hydrocortisone Acetate) 25 Mg Supp.rect 25 Mg RC PRN DAILY PRN Probiotic (Lactobacillus Acidophilus) 1 Each Capsule 1 Cap PO BID Levothyroxine Sodium 25 Mcg Tablet 25 Mcg PO DAILY06 Vitamin D3 (Cholecalciferol (Vitamin D3)) 50,000 Unit Capsule 50,000 Unit PO QMONTH Administer on the 15th of every Month I have reviewed the current psychotropics carefully including drug interactions. Risk benefit ratio favors no change other than as noted in my dictated progress note. Diagnosis: Problems: (1) Intellectual disability (2) Anxiety (3) Dementia (4) Impulse control disorder (5) Impulse control disorder (6) Obsessive compulsive disorder (7) Medical clearance for psychiatric admission (8) IMPULSE DISORDER, UNSPECIFIED (9) Dementia (10) DMII (diabetes mellitus, type 2) IDA LAINEZ MD May 12, 2018 21:00
--- NOTE | 2018-05-13 00:40 | PN ---
DATE: 05/10/2018 PSYCHIATRIC PROGRESS NOTE This late entry 05/10/2018 covers elements not covered in my initial note. SUBJECTIVE: Met with the patient in the evening. Several times that she would follow me around the unit. Obsessive, repetitive, loud, banging on doors and glass window of the nursing station, trying to attract my attention, "when can I go home, when can I go home, when can I go home. I am improving, I am improving, I am improving. I talked to Samir, talked to Samir." REVIEW OF SYSTEMS: Ambulation is impaired with walker. No CV, , pulmonary, eye, ENT system symptoms on review. MENTAL STATUS EXAM: Oriented to herself, situation. Speech is coherent, rapid, loud, obsessive, repetitive. Abstraction is fair, computation impaired at times. She is incontinent of urine, uses briefs, has been yelling at times. LABORATORY DATA: We will repeat labs on 05/11/2018. Had a bowel movement, blood sugar low post lunch. IMPRESSION: Unchanged from initial note. PLAN: No change from initial note but increased Trileptal from 150 twice a day to 300 twice a day. MAN Stuart LAINEZ MD DR: YO/bakari JOB#: [id number] / [id number]
--- NOTE | 2018-05-13 00:41 | PN ---
DATE: 05/11/2018 This late entry, 05/11/2018, covers elements not covered in my initial note. SUBJECTIVE: I met with the patient in the evening. The patient slept 5-1/2 hours previous evening, somewhat loud in the evening on telephone with Ricky. Blood sugar in the 90s. Per the nursing report, earlier in the day, she had a good day until suppertime. Yelling out, helpless at suppertime. Compliant with medications. REVIEW OF SYSTEMS: Ambulation impaired with walker. No CV, , pulmonary, eye, ENT system symptoms on review. MENTAL STATUS EXAM: Oriented to herself and situation. Speech coherent, rapid, somewhat obsessive. Abstraction fair, computation impaired, language function intact. Mood and affect remain labile and grandiose. LABORATORY DATA: Reviewed. IMPRESSION: Unchanged from initial note. PLAN: No change from initial note. MAN Stuart LAINEZ MD DR: YO/bakari JOB#: [id number] / [id number]
[2018-05-13] MEDS: LEVOTHYROXINE 25 MCG TABLET. PO SCH (06:04)
[2018-05-13 06:37] VITALS: BP 108/65
[2018-05-13] MEDS: traZODone 50 MG TABLET. PO SCH ×3 (07:35→18:22)
[2018-05-13] MEDS: PANTOPRAZOLE 40 MG TABLET. PO SCH (07:35)
[2018-05-13] MEDS: OXcarbazepine 150 MG TABLET. PO SCH ×2 (07:35→18:22)
[2018-05-13] MEDS: LISINOPRIL 5 MG TABLET. PO SCH (07:35)
[2018-05-13] MEDS: LACTOBACILLUS RHAMNOSUS GG 1 CAPSULE. PO SCH ×2 (07:35→20:16)
[2018-05-13] MEDS: NYSTATIN TOPICAL POWDER 15GM BOTTLE. TP SCH ×2 (07:36→20:16)
[2018-05-13] MEDS: INSULIN LISPRO 300 UNITS/3 ML INSULN.PEN. SQ SCH ×3 (09:00→17:00)
[2018-05-13] MEDS: clonazePAM 0.5 MG TABLET PO SCH ×2 (14:31→20:16)
[2018-05-13 16:41] VITALS: BP 99/50
--- NOTE | 2018-05-13 20:02 | PDOC ---
Exam Note: Marcelo Note: Please also refer to the separate dictated note~for this date of service dictated separately.~Patient seen individually. Discussed the patient with Nursing staff reviewed the chart.~Reviewed interim history and current functioning. Reviewed vital signs,~Labs/ Radiology~and current medications noted below. Continue current treatment with the changes noted in the dictated addendum note Assessment: Vital Signs: Vital Signs Date Time Temp Pulse Resp B/P (MAP) Pulse Ox O2 Delivery O2 Flow Rate FiO2 05/13/18 16:41 98.8 75 18 99/50 (66) 98 05/08/18 16:28 Room Air I&O Intake and Output 05/13/18 06:59 Intake Total 1320 ml Balance 1320 ml Intake Oral 1320 ml Labs: Laboratory Tests Test 05/13/18 07:35 05/13/18 07:51 05/13/18 07:53 05/13/18 11:34 Glucose (Fingerstick) 62 mg/dL (70-99) L 61 mg/dL (70-99) L 98 mg/dL (70-99) 127 mg/dL (70-99) H Test 05/13/18 16:55 05/13/18 19:02 Glucose (Fingerstick) 157 mg/dL (70-99) H 229 mg/dL (70-99) H Current Medications: Meds: Current Medications Acetaminophen (Tylenol) 650 mg PRN Q6HRS PRN PO PAIN / TEMP; Start 05/04/18 at 17:30 Multi-Ingredient Ointment (Analgesic Conway) 1 porsche PRN QID PRN TP MUSCLE PAIN; Start 05/04/18 at 17:30 Al Hydroxide/Mg Hydroxide (Mylanta Plus Xs) 15 ml PRN AFTMEALHC PRN PO DYSPEPSIA; Start 05/04/18 at 17:30 Magnesium Hydroxide (Milk Of Magnesia) 2,400 mg PRN QHS PRN PO CONSTIPATION; Start 05/04/18 at 17:30 Vitamin D (Vitamin D3) 50,000 unit QMONTH PO ; Start 06/03/18 at 09:00 Insulin Human Lispro (HumaLOG) 0-7 TIDWMEALS SQ ; Start 05/05/18 at 08:00; Stop 05/05/18 at 08:00; Status DC Nystatin (Nystop) 1 porsche BID TP Last administered on 05/13/18 07:36; Start at 21:00 Nystatin (Nystop) 1 porsche PRN TID PRN TP RASH; Start 05/04/18 at 18:00 Fenofibrate (Tricor) 48 mg QHS PO Last administered on 05/12/18 19:55; Start 05/04/18 at 21:00 Hydrocortisone (Proctosol-Hc) 1 porsche PRN BID PRN RC BURNING OR BLOOD IN RECTUM; Start 05/04/18 at 19:30 Lactobacillus Rhamnosus (Culturelle) 1 cap BID PO Last administered on 07:35; Start 05/04/18 at 21:00 Levothyroxine Sodium (Synthroid) 25 mcg DAILY06 PO Last administered on 06:04; Start 05/05/18 at 06:00 Lisinopril (Prinivil) 5 mg DAILY PO Last administered on 05/13/18 07:35; Start 05/05/18 at 09:00 Pantoprazole Sodium (Protonix) 40 mg DAILYAC PO Last administered on 05/13/18 07:35; Start 05/05/18 at 07:30 Clonazepam (KlonoPIN) 0.5 mg BID@1200,2100 PO Last administered on 05/13/18 14 :31; Start 05/04/18 at 21:00 Fluvoxamine Maleate (Luvox) 100 mg QHS PO Last administered on 05/05/18 20:07 ; Start 05/04/18 at 21:00; Stop 05/06/18 at 18:15; Status DC Quetiapine Fumarate (SEROquel) 25 mg BID PO Last administered on 05/05/18at 20: 07; Start 05/04/18 at 21:00; Stop 05/05/18 at 21:01; Status DC Trazodone HCl (Desyrel) 50 mg TIDWMEALS PO Last administered on 05/07/18 17:52 ; Start 05/04/18 at 19:30; Stop 05/07/18 at 18:34; Status DC Insulin Human Lispro (HumaLOG) 0-7 UNITS TIDWMEALS SQ Last administered on 05/10at 09:37; Start 05/05/18 at 08:00; Stop 05/10/18 at 18:43; Status DC Insulin Human Lispro (HumaLOG) 10 units DAILY SQ Last administered on 09:00; Start 05/06/18 at 09:00 Insulin Human Lispro (HumaLOG) 25 units NOON SQ Last administered on 05/13/18at 12:00; Start 05/05/18 at 12:00 Insulin Human Lispro (HumaLOG) 15 units 1700 SQ Last administered on 05/13/18at 17:00; Start 05/05/18 at 17:00 Insulin Glargine (Lantus) 50 units QHS SQ Last administered on 05/12/18at 20:07 ; Start 05/05/18 at 21:00 Fluvoxamine Maleate (Luvox) 125 mg QHS PO Last administered on 05/08/18at 20:40 ; Start 05/06/18 at 21:00; Stop 05/08/18 at 20:50; Status DC Fluvoxamine Maleate (Luvox) 25 mg QHS PO Last administered on 05/07/18at 21:01; Start 05/06/18 at 21:00; Stop 05/08/18 at 19:26; Status DC Trazodone HCl (Desyrel) 75 mg DAILY@0900 PO Last administered on 05/13/18at 07: 35; Start 05/08/18 at 09:00 Trazodone HCl (Desyrel) 50 mg BID@1300,1700 PO Last administered on 05/13/18at 18:22; Start 05/08/18 at 13:00 Fluvoxamine Maleate (Luvox) 75 mg QHS PO ; Start 05/08/18 at 21:00; Stop at 21:00; Status DC Fluvoxamine Maleate (Luvox) 150 mg HS PO Last administered on 05/12/18at 19:53; Start 05/08/18 at 21:00 Oxcarbazepine (Trileptal) 150 mg 0900,1700 PO Last administered on 05/13/18at 18 :22; Start 05/09/18 at 17:00; Stop 05/13/18 at 19:18; Status DC Olanzapine (ZyPREXA ZYDIS) 2.5 mg PRN Q2HR PRN PO PSYCHOSIS Last administered on 05/13/18at 02:19; Start 05/09/18 at 17:30 Oxcarbazepine (Trileptal) 300 mg 0900,1700 PO ; Start 05/14/18 at 09:00 Active Scripts Active Reported Humalog (Insulin Lispro) 100 Unit/1 Ml Insuln.pen 0-7 Unit SQ TIDWMEALS BG 70-150= 0 units if eating; 0 units if not eating/HS BG 151-200= 3 units if eating; 0 units if not eating/HS BG 201-250= 4 units if eating; 2 units if not eating/HS BG 251-300= 6 units if eating; 3 units if not eating/HS BG 301-351= 7 units if eating; 4 units if not eating/HS BG >351= call provider for orders Fenofibrate (Fenofibrate Nanocrystallized) 48 Mg Tablet 48 Mg PO QHS Protonix (Pantoprazole Sodium) 40 Mg Tablet.dr 40 Mg PO DAILYAC Fluvoxamine Maleate 100 Mg Tablet 100 Mg PO HS Seroquel (Quetiapine Fumarate) 25 Mg Tablet 25 Mg PO BID Nystop (Nystatin) 60 Gm Powder 1 Porsche TP BID Lisinopril 5 Mg Tablet 5 Mg PO DAILY Nystop (Nystatin) 60 Gm Powder 1 Porsche TP PRN TID PRN Trazodone Hcl 50 Mg Tablet 50 Mg PO TIDWMEALS Clonazepam 0.5 Mg Tablet 0.5 Mg PO BID@1200,2100 Anusol-Hc (Hydrocortisone Acetate) 25 Mg Supp.rect 25 Mg RC PRN DAILY PRN Probiotic (Lactobacillus Acidophilus) 1 Each Capsule 1 Cap PO BID Levothyroxine Sodium 25 Mcg Tablet 25 Mcg PO DAILY06 Vitamin D3 (Cholecalciferol (Vitamin D3)) 50,000 Unit Capsule 50,000 Unit PO QMONTH Administer on the 15th of every Month I have reviewed the current psychotropics carefully including drug interactions. Risk benefit ratio favors no change other than as noted in my dictated progress note. Diagnosis: Problems: (1) Intellectual disability (2) Anxiety (3) Dementia (4) Impulse control disorder (5) Impulse control disorder (6) Obsessive compulsive disorder (7) Medical clearance for psychiatric admission (8) IMPULSE DISORDER, UNSPECIFIED (9) Dementia (10) DMII (diabetes mellitus, type 2) IDA LAINEZ MD 30, 2018 20:02
[2018-05-13] MEDS: FENOFIBRATE NANOCRYSTALLIZED 48 MG TABLET PO SCH (21:00)
[2018-05-13] MEDS: INSULIN GLARGINE 300 UNITS/3 ML INSULN.PEN. SQ SCH (21:03)
[2018-05-14 05:58] VITALS: BP 130/78
[2018-05-14] MEDS: LEVOTHYROXINE 25 MCG TABLET. PO SCH (06:18)
[2018-05-14] MEDS: PANTOPRAZOLE 40 MG TABLET. PO SCH (08:30)
[2018-05-14] MEDS: LACTOBACILLUS RHAMNOSUS GG 1 CAPSULE. PO SCH ×2 (08:30→19:19)
[2018-05-14] MEDS: traZODone 50 MG TABLET. PO SCH ×3 (08:30→16:30)
[2018-05-14] MEDS: LISINOPRIL 5 MG TABLET. PO SCH (08:30)
[2018-05-14] MEDS: NYSTATIN TOPICAL POWDER 15GM BOTTLE. TP SCH ×2 (08:33→19:21)
[2018-05-14] MEDS: INSULIN LISPRO 300 UNITS/3 ML INSULN.PEN. SQ SCH ×3 (09:00→16:42)
[2018-05-14] MEDS: clonazePAM 0.5 MG TABLET PO SCH ×2 (12:25→19:21)
[2018-05-14] MEDS ORDERED: DEXTROSE 50% 25 GM / 50ML DISP.SYRIN. IV PRN (14:30)
--- NOTE | 2018-05-14 14:30 | PN ---
DATE: 05/12/2018 This late entry, 05/12/2018, covers elements not covered in my initial note. SUBJECTIVE: I met with the patient in the evening. The patient slept 7-1/2 hours previous evening. She remains obsessed about calling her sister, Ricky. Staff had to intervene. Wants Ricky to come and take her, yelling at times. REVIEW OF SYSTEMS: No CV, , pulmonary, eye, ENT system symptoms on review. Ambulation impairment with walker. MENTAL STATUS EXAM: Oriented to herself and situation, repeatedly following me around the unit, loud, obsessive, repetitive about discharge "when can I go home, when can I go home. I am doing better, I am doing better. I am improving, I am improving." Abstraction fair, computation impaired, language function intact. Mood and affect labile. LABORATORY DATA: Reviewed. IMPRESSION: Bipolar I disorder, mixed; obsessive-compulsive disorder; anxiety disorder, unspecified; intellectual disability. PLAN: No change from a psychiatric standpoint. Luvox has been adjusted. She probably needs the addition of atypical antipsychotics, but her DPOA, sister, Ricky, is very opposed to it. This is understandable given the side effect profile, but risk/benefit ratio may have to be reassessed for something to stabilize her better than she is so far. IDA LAINEZ MD DR: YO/bakari JOB#: [id number] / [id number]
[2018-05-14 16:05] VITALS: BP 102/67
[2018-05-14] MEDS: FENOFIBRATE NANOCRYSTALLIZED 48 MG TABLET PO SCH (19:21)
[2018-05-14] MEDS: INSULIN GLARGINE 300 UNITS/3 ML INSULN.PEN. SQ SCH (19:25)
--- NOTE | 2018-05-14 20:02 | PDOC ---
Exam Note: Marcelo Note: Please also refer to the separate dictated note~for this date of service dictated separately.~Patient seen individually. Discussed the patient with Nursing staff reviewed the chart.~Reviewed interim history and current functioning. Reviewed vital signs,~Labs/ Radiology~and current medications noted below. Continue current treatment with the changes noted in the dictated addendum note Assessment: Vital Signs: Vital Signs Date Time Temp Pulse Resp B/P (MAP) Pulse Ox O2 Delivery O2 Flow Rate FiO2 05/14/18 16:05 98.0 69 18 102/67 (79) 95 05/08/18 16:28 Room Air I&O Intake and Output 05/14/18 07:00 Intake Total 1020 ml Balance 1020 ml Intake Oral 1020 ml Labs: Laboratory Tests Test 05/14/18 07:02 05/14/18 11:43 05/14/18 16:23 05/14/18 19:08 Glucose (Fingerstick) 78 mg/dL (70-99) 176 mg/dL (70-99) H 176 mg/dL (70-99) H 166 mg/dL (70-99) H Current Medications: Meds: Current Medications Acetaminophen (Tylenol) 650 mg PRN Q6HRS PRN PO PAIN / TEMP; Start 05/04/18 at 17:30 Multi-Ingredient Ointment (Analgesic [place]) 1 porsche PRN QID PRN TP MUSCLE PAIN; Start 05/04/18 at 17:30 Al Hydroxide/Mg Hydroxide (Mylanta Plus Xs) 15 ml PRN AFTMEALHC PRN PO DYSPEPSIA; Start 05/04/18 at 17:30 Magnesium Hydroxide (Milk Of Magnesia) 2,400 mg PRN QHS PRN PO CONSTIPATION; Start 05/04/18 at 17:30 Vitamin D (Vitamin D3) 50,000 unit QMONTH PO ; Start 06/03/18 at 09:00 Insulin Human Lispro (HumaLOG) 0-7 TIDWMEALS SQ ; Start 05/05/18 at 08:00; Stop 05/05/18 at 08:00; Status DC Nystatin (Nystop) 1 porsche BID TP Last administered on 05/14/18at 19:21; Start at 21:00 Nystatin (Nystop) 1 porsche PRN TID PRN TP RASH; Start 05/04/18 at 18:00 Fenofibrate (Tricor) 48 mg QHS PO Last administered on 05/14/18 19:21; Start 05/04/18 at 21:00 Hydrocortisone (Proctosol-Hc) 1 porsche PRN BID PRN RC BURNING OR BLOOD IN RECTUM; Start 05/04/18 at 19:30 Lactobacillus Rhamnosus (Culturelle) 1 cap BID PO Last administered on 19:19; Start 05/04/18 at 21:00 Levothyroxine Sodium (Synthroid) 25 mcg DAILY06 PO Last administered on 06:18; Start 05/05/18 at 06:00 Lisinopril (Prinivil) 5 mg DAILY PO Last administered on 05/14/18 08:30; Start 05/05/18 at 09:00 Pantoprazole Sodium (Protonix) 40 mg DAILYAC PO Last administered on 05/14/18at 08:30; Start 05/05/18 at 07:30 Clonazepam (KlonoPIN) 0.5 mg BID@1200,2100 PO Last administered on 05/14/18at 19 :21; Start 05/04/18 at 21:00 Fluvoxamine Maleate (Luvox) 100 mg QHS PO Last administered on 05/05/18at 20:07 ; Start 05/04/18 at 21:00; Stop 05/06/18 at 18:15; Status DC Quetiapine Fumarate (SEROquel) 25 mg BID PO Last administered on 05/05/18at 20: 07; Start 05/04/18 at 21:00; Stop 05/05/18 at 21:01; Status DC Trazodone HCl (Desyrel) 50 mg TIDWMEALS PO Last administered on 05/07/18at 17:52 ; Start 05/04/18 at 19:30; Stop 05/07/18 at 18:34; Status DC Insulin Human Lispro (HumaLOG) 0-7 UNITS TIDWMEALS SQ Last administered on 05/10at 09:37; Start 05/05/18 at 08:00; Stop 05/10/18 at 18:43; Status DC Insulin Human Lispro (HumaLOG) 10 units DAILY SQ Last administered on at 09:00; Start 05/06/18 at 09:00; Stop 05/14/18 at 14:30; Status DC Insulin Human Lispro (HumaLOG) 25 units NOON SQ Last administered on 05/13/18at 12:00; Start 05/05/18 at 12:00; Stop 05/14/18 at 14:30; Status DC Insulin Human Lispro (HumaLOG) 15 units 1700 SQ Last administered on 05/13/18at 17:00; Start 05/05/18 at 17:00; Stop 05/14/18 at 14:30; Status DC Insulin Glargine (Lantus) 50 units QHS SQ Last administered on 05/14/18at 19:25 ; Start 05/05/18 at 21:00 Fluvoxamine Maleate (Luvox) 125 mg QHS PO Last administered on 05/08/18at 20:40 ; Start 05/06/18 at 21:00; Stop 05/08/18 at 20:50; Status DC Fluvoxamine Maleate (Luvox) 25 mg QHS PO Last administered on 05/07/18at 21:01; Start 05/06/18 at 21:00; Stop 05/08/18 at 19:26; Status DC Trazodone HCl (Desyrel) 75 mg DAILY@0900 PO Last administered on 05/14/18at 08: 30; Start 05/08/18 at 09:00 Trazodone HCl (Desyrel) 50 mg BID@1300,1700 PO Last administered on 05/14/18at 12:25; Start 05/08/18 at 13:00; Stop 05/14/18 at 16:22; Status DC Fluvoxamine Maleate (Luvox) 75 mg QHS PO ; Start 05/08/18 at 21:00; Stop at 21:00; Status DC Fluvoxamine Maleate (Luvox) 150 mg HS PO Last administered on 05/14/18at 19:19; Start 05/08/18 at 21:00 Oxcarbazepine (Trileptal) 150 mg 0900,1700 PO Last administered on 05/13/18at 18 :22; Start 05/09/18 at 17:00; Stop 05/13/18 at 19:18; Status DC Olanzapine (ZyPREXA ZYDIS) 2.5 mg PRN Q2HR PRN PO PSYCHOSIS Last administered on 05/14/18at 14:37; Start 05/09/18 at 17:30 Oxcarbazepine (Trileptal) 300 mg 0900,1700 PO Last administered on 05/14/18at 16 :30; Start 05/14/18 at 09:00 Insulin Human Lispro (HumaLOG) 0-7 UNITS TIDWMEALS SQ Last administered on 05/14at 16:42; Start 05/14/18 at 17:00 Dextrose 12.5 gm PRN Q15MIN PRN IV SEE COMMENTS; Start 05/14/18 at 14:30 Trazodone HCl (Desyrel) 75 mg BID@1300,1700 PO Last administered on 05/14/18at 16:30; Start 05/14/18 at 17:00 Active Scripts Active Reported Humalog (Insulin Lispro) 100 Unit/1 Ml Insuln.pen 0-7 Unit SQ TIDWMEALS BG 70-150= 0 units if eating; 0 units if not eating/HS BG 151-200= 3 units if eating; 0 units if not eating/HS BG 201-250= 4 units if eating; 2 units if not eating/HS BG 251-300= 6 units if eating; 3 units if not eating/HS BG 301-351= 7 units if eating; 4 units if not eating/HS BG >351= call provider for orders Fenofibrate (Fenofibrate Nanocrystallized) 48 Mg Tablet 48 Mg PO QHS Protonix (Pantoprazole Sodium) 40 Mg Tablet.dr 40 Mg PO DAILYAC Fluvoxamine Maleate 100 Mg Tablet 100 Mg PO HS Seroquel (Quetiapine Fumarate) 25 Mg Tablet 25 Mg PO BID Nystop (Nystatin) 60 Gm Powder 1 Porsche TP BID Lisinopril 5 Mg Tablet 5 Mg PO DAILY Nystop (Nystatin) 60 Gm Powder 1 Porsche TP PRN TID PRN Trazodone Hcl 50 Mg Tablet 50 Mg PO TIDWMEALS Clonazepam 0.5 Mg Tablet 0.5 Mg PO BID@1200,2100 Anusol-Hc (Hydrocortisone Acetate) 25 Mg Supp.rect 25 Mg RC PRN DAILY PRN Probiotic (Lactobacillus Acidophilus) 1 Each Capsule 1 Cap PO BID Levothyroxine Sodium 25 Mcg Tablet 25 Mcg PO DAILY06 Vitamin D3 (Cholecalciferol (Vitamin D3)) 50,000 Unit Capsule 50,000 Unit PO QMONTH Administer on the 15th of every Month I have reviewed the current psychotropics carefully including drug interactions. Risk benefit ratio favors no change other than as noted in my dictated progress note. Diagnosis: Problems: (1) Intellectual disability (2) Anxiety (3) Dementia (4) Impulse control disorder (5) Impulse control disorder (6) Obsessive compulsive disorder (7) Medical clearance for psychiatric admission (8) IMPULSE DISORDER, UNSPECIFIED (9) Dementia (10) DMII (diabetes mellitus, type 2) IDA LAINEZ MD May 14, 2018 20:02
[2018-05-15 05:50] VITALS: BP 122/71
[2018-05-15] MEDS: LEVOTHYROXINE 25 MCG TABLET. PO SCH (06:18)
[2018-05-15] MEDS: PANTOPRAZOLE 40 MG TABLET. PO SCH (08:25)
[2018-05-15] MEDS: LACTOBACILLUS RHAMNOSUS GG 1 CAPSULE. PO SCH ×2 (08:26→20:26)
[2018-05-15] MEDS: traZODone 50 MG TABLET. PO SCH ×3 (08:26→17:10)
[2018-05-15] MEDS: INSULIN LISPRO 300 UNITS/3 ML INSULN.PEN. SQ SCH ×3 (08:29→17:00)
[2018-05-15] MEDS: LISINOPRIL 5 MG TABLET. PO SCH (09:00)
[2018-05-15] MEDS: NYSTATIN TOPICAL POWDER 15GM BOTTLE. TP SCH ×2 (09:26→20:28)
[2018-05-15] MEDS: clonazePAM 0.5 MG TABLET PO SCH ×2 (12:00→20:29)
--- NOTE | 2018-05-15 12:50 | PN ---
DATE: 05/13/2018 PSYCHIATRIC PROGRESS NOTE This late entry 05/13/2018 covers elements not covered in my initial note. SUBJECTIVE: Met with the patient in the evening. The patient slept for 3/4 hours previous evening. For the last 2 days, she starting around 4:00 p.m. on Sunday, she has been quite intrusive, per nursing report. Earlier in the day Sunday, she did better. REVIEW OF SYSTEMS: No CV, , pulmonary, eye, ENT system symptoms on review. Gait is unsteady with walker. MENTAL STATUS EXAM: Oriented to herself. Insight, judgment, recent memory is impaired. Language function is intact. Mood and affect remains labile. She is extremely obsessive, repeatedly verbalized "when can I go home, when can I go home, when can I go home. I am improving, I am improving." This is fairly typical for her, but a little less persistent evening of 05/13/2018. LABORATORY DATA: Reviewed. IMPRESSION: Bipolar 1 disorder, mixed anxiety disorder, unspecified; obsessive compulsive disorder, intellectual disability. PLAN: Increase Trileptal from 150 twice a day to 300 mg twice a day. Continue rest unchanged per initial note. The patient's sister is not wanting her on atypical antipsychotics and we will try and avoid it if possible. MAN Stuart LAINEZ MD DR: YO/bakari JOB#: [id number] / [id number]
[2018-05-15 16:01] VITALS: BP 99/63
[2018-05-15] MEDS: FENOFIBRATE NANOCRYSTALLIZED 48 MG TABLET PO SCH (20:29)
[2018-05-15] MEDS: INSULIN GLARGINE 300 UNITS/3 ML INSULN.PEN. SQ SCH (20:32)
--- NOTE | 2018-05-15 21:00 | PDOC ---
Exam Note: Marcelo Note: Please also refer to the separate dictated note~for this date of service dictated separately.~Patient seen individually. Discussed the patient with Nursing staff reviewed the chart.~Reviewed interim history and current functioning. Reviewed vital signs,~Labs/ Radiology~and current medications noted below. Continue current treatment with the changes noted in the dictated addendum note Assessment: Vital Signs: Vital Signs Date Time Temp Pulse Resp B/P (MAP) Pulse Ox O2 Delivery O2 Flow Rate FiO2 05/15/18 16:01 97.0 70 20 99/63 (75) 95 I&O Intake and Output 05/15/18 07:00 Intake Total 1440 ml Balance 1440 ml Intake Oral 1440 ml # Voids 1 Labs: Laboratory Tests Test 05/15/18 07:22 05/15/18 12:12 05/15/18 16:42 05/15/18 19:13 Glucose (Fingerstick) 163 mg/dL (70-99) H 185 mg/dL (70-99) H 128 mg/dL (70-99) H 306 mg/dL (70-99) H Current Medications: Meds: Current Medications Acetaminophen (Tylenol) 650 mg PRN Q6HRS PRN PO PAIN / TEMP; Start 05/04/18 at 17:30 Multi-Ingredient Ointment (Analgesic [place]) 1 porsche PRN QID PRN TP MUSCLE PAIN; Start 05/04/18 at 17:30 Al Hydroxide/Mg Hydroxide (Mylanta Plus Xs) 15 ml PRN AFTMEALHC PRN PO DYSPEPSIA; Start 05/04/18 at 17:30 Magnesium Hydroxide (Milk Of Magnesia) 2,400 mg PRN QHS PRN PO CONSTIPATION; Start 05/04/18 at 17:30 Vitamin D (Vitamin D3) 50,000 unit QMONTH PO ; Start 06/03/18 at 09:00 Insulin Human Lispro (HumaLOG) 0-7 TIDWMEALS SQ ; Start 05/05/18 at 08:00; Stop 05/05/18 at 08:00; Status DC Nystatin (Nystop) 1 porsche BID TP Last administered on 05/15/18at 20:28; Start 05/04 at 21:00 Nystatin (Nystop) 1 porsche PRN TID PRN TP RASH; Start 05/04/18 at 18:00 Fenofibrate (Tricor) 48 mg QHS PO Last administered on 05/15/18 20:29; Start at 21:00 Hydrocortisone (Proctosol-Hc) 1 porsche PRN BID PRN RC BURNING OR BLOOD IN RECTUM; Start 05/04/18 at 19:30 Lactobacillus Rhamnosus (Culturelle) 1 cap BID PO Last administered on 20:26; Start 05/04/18 at 21:00 Levothyroxine Sodium (Synthroid) 25 mcg DAILY06 PO Last administered on 06:18; Start 05/05/18 at 06:00 Lisinopril (Prinivil) 5 mg DAILY PO Last administered on 05/15/18 09:00; Start 05/05/18 at 09:00 Pantoprazole Sodium (Protonix) 40 mg DAILYAC PO Last administered on 05/15/18at 08:25; Start 05/05/18 at 07:30 Clonazepam (KlonoPIN) 0.5 mg BID@1200,2100 PO Last administered on 05/15/18at 20: 29; Start 05/04/18 at 21:00 Fluvoxamine Maleate (Luvox) 100 mg QHS PO Last administered on 05/05/18at 20:07 ; Start 05/04/18 at 21:00; Stop 05/06/18 at 18:15; Status DC Quetiapine Fumarate (SEROquel) 25 mg BID PO Last administered on 05/05/18at 20: 07; Start 05/04/18 at 21:00; Stop 05/05/18 at 21:01; Status DC Trazodone HCl (Desyrel) 50 mg TIDWMEALS PO Last administered on 05/07/18at 17:52 ; Start 05/04/18 at 19:30; Stop 05/07/18 at 18:34; Status DC Insulin Human Lispro (HumaLOG) 0-7 UNITS TIDWMEALS SQ Last administered on 05/10at 09:37; Start 05/05/18 at 08:00; Stop 05/10/18 at 18:43; Status DC Insulin Human Lispro (HumaLOG) 10 units DAILY SQ Last administered on at 09:00; Start 05/06/18 at 09:00; Stop 05/14/18 at 14:30; Status DC Insulin Human Lispro (HumaLOG) 25 units NOON SQ Last administered on 05/13/18at 12:00; Start 05/05/18 at 12:00; Stop 05/14/18 at 14:30; Status DC Insulin Human Lispro (HumaLOG) 15 units 1700 SQ Last administered on 05/13/18at 17:00; Start 05/05/18 at 17:00; Stop 05/14/18 at 14:30; Status DC Insulin Glargine (Lantus) 50 units QHS SQ Last administered on 05/15/18at 20:32; Start 05/05/18 at 21:00 Fluvoxamine Maleate (Luvox) 125 mg QHS PO Last administered on 05/08/18at 20:40 ; Start 05/06/18 at 21:00; Stop 05/08/18 at 20:50; Status DC Fluvoxamine Maleate (Luvox) 25 mg QHS PO Last administered on 05/07/18at 21:01; Start 05/06/18 at 21:00; Stop 05/08/18 at 19:26; Status DC Trazodone HCl (Desyrel) 75 mg DAILY@0900 PO Last administered on 05/15/18at 08:26 ; Start 05/08/18 at 09:00 Trazodone HCl (Desyrel) 50 mg BID@1300,1700 PO Last administered on 05/14/18at 12:25; Start 05/08/18 at 13:00; Stop 05/14/18 at 16:22; Status DC Fluvoxamine Maleate (Luvox) 75 mg QHS PO ; Start 05/08/18 at 21:00; Stop at 21:00; Status DC Fluvoxamine Maleate (Luvox) 150 mg HS PO Last administered on 05/15/18at 20:26; Start 05/08/18 at 21:00 Oxcarbazepine (Trileptal) 150 mg 0900,1700 PO Last administered on 05/13/18at 18 :22; Start 05/09/18 at 17:00; Stop 05/13/18 at 19:18; Status DC Olanzapine (ZyPREXA ZYDIS) 2.5 mg PRN Q2HR PRN PO PSYCHOSIS Last administered on 05/14/18at 14:37; Start 05/09/18 at 17:30 Oxcarbazepine (Trileptal) 300 mg 0900,1700 PO Last administered on 05/15/18at 17: 10; Start 05/14/18 at 09:00 Insulin Human Lispro (HumaLOG) 0-7 UNITS TIDWMEALS SQ Last administered on at 12:00; Start 05/14/18 at 17:00 Dextrose 12.5 gm PRN Q15MIN PRN IV SEE COMMENTS; Start 05/14/18 at 14:30 Trazodone HCl (Desyrel) 75 mg BID@1300,1700 PO Last administered on 05/15/18at 17 :10; Start 05/14/18 at 17:00 Active Scripts Active Reported Humalog (Insulin Lispro) 100 Unit/1 Ml Insuln.pen 0-7 Unit SQ TIDWMEALS BG 70-150= 0 units if eating; 0 units if not eating/HS BG 151-200= 3 units if eating; 0 units if not eating/HS BG 201-250= 4 units if eating; 2 units if not eating/HS BG 251-300= 6 units if eating; 3 units if not eating/HS BG 301-351= 7 units if eating; 4 units if not eating/HS BG >351= call provider for orders Fenofibrate (Fenofibrate Nanocrystallized) 48 Mg Tablet 48 Mg PO QHS Protonix (Pantoprazole Sodium) 40 Mg Tablet.dr 40 Mg PO DAILYAC Fluvoxamine Maleate 100 Mg Tablet 100 Mg PO HS Seroquel (Quetiapine Fumarate) 25 Mg Tablet 25 Mg PO BID Nystop (Nystatin) 60 Gm Powder 1 Porsche TP BID Lisinopril 5 Mg Tablet 5 Mg PO DAILY Nystop (Nystatin) 60 Gm Powder 1 Porsche TP PRN TID PRN Trazodone Hcl 50 Mg Tablet 50 Mg PO TIDWMEALS Clonazepam 0.5 Mg Tablet 0.5 Mg PO BID@1200,2100 Anusol-Hc (Hydrocortisone Acetate) 25 Mg Supp.rect 25 Mg RC PRN DAILY PRN Probiotic (Lactobacillus Acidophilus) 1 Each Capsule 1 Cap PO BID Levothyroxine Sodium 25 Mcg Tablet 25 Mcg PO DAILY06 Vitamin D3 (Cholecalciferol (Vitamin D3)) 50,000 Unit Capsule 50,000 Unit PO QMONTH Administer on the 15th of every Month I have reviewed the current psychotropics carefully including drug interactions. Risk benefit ratio favors no change other than as noted in my dictated progress note. Diagnosis: Problems: (1) Intellectual disability (2) Anxiety (3) Dementia (4) Impulse control disorder (5) Impulse control disorder (6) Obsessive compulsive disorder (7) Medical clearance for psychiatric admission (8) IMPULSE DISORDER, UNSPECIFIED (9) Dementia (10) DMII (diabetes mellitus, type 2) IDA LAINEZ MD May 15, 2018 21:00
--- NOTE | 2018-05-16 05:19 | PN ---
DATE: 05/14/2018 PSYCHIATRIC PROGRESS NOTE This is a late entry, 05/14, covers elements not covered in my initial note. SUBJECTIVE: I met with the patient in the evening. The patient slept 5-1/4 hours previous evening, remains somewhat anxious, repetitive, somewhat loud about discharge plans, but less fixated on this. REVIEW OF SYSTEMS: Ambulation impaired with walker. No CV, , pulmonary, eye, ENT system symptoms on review. Reliability varies. MENTAL STATUS EXAM: Oriented to herself and situation. Speech coherent, rapid, loud at times, repetitive, "I am better, I am better, I am better, when can I go home, when can I go home. I am improving, I am improving." No active suicidal or homicidal ideation. Despite the above, overall most of the day, she has been less anxious, less obsessive. LABORATORY DATA: Reviewed. IMPRESSION: Bipolar 1 disorder, mixed obsessive-compulsive disorder, intellectual disability. PLAN: Increase of 1300 trazodone from 50 mg to 75 mg, continue 1700 at 50 mg. Trileptal is 300 mg twice a day. Rest unchanged from initial note. MAN Stuart LAINEZ MD DR: YO/bakari JOB#: [id number] / [id number]
[2018-05-16] MEDS: LEVOTHYROXINE 25 MCG TABLET. PO SCH (05:26)
[2018-05-16 05:49] VITALS: BP 107/56
[2018-05-16] MEDS: INSULIN LISPRO 300 UNITS/3 ML INSULN.PEN. SQ SCH ×3 (08:00→17:00)
[2018-05-16] MEDS: clonazePAM 0.5 MG TABLET PO SCH ×2 (08:07→19:34)
[2018-05-16] MEDS: LISINOPRIL 5 MG TABLET. PO SCH (08:08)
[2018-05-16] MEDS: LACTOBACILLUS RHAMNOSUS GG 1 CAPSULE. PO SCH ×2 (08:08→19:33)
[2018-05-16] MEDS: traZODone 50 MG TABLET. PO SCH ×3 (08:08→18:00)
[2018-05-16] MEDS: PANTOPRAZOLE 40 MG TABLET. PO SCH (08:09)
[2018-05-16] MEDS: NYSTATIN TOPICAL POWDER 15GM BOTTLE. TP SCH ×2 (08:10→19:35)
[2018-05-16 16:04] VITALS: BP 129/85
[2018-05-16] MEDS: FENOFIBRATE NANOCRYSTALLIZED 48 MG TABLET PO SCH (19:35)
[2018-05-16] MEDS: INSULIN GLARGINE 300 UNITS/3 ML INSULN.PEN. SQ SCH (19:37)
--- NOTE | 2018-05-16 21:02 | PDOC ---
Exam Note: Marcelo Note: Please also refer to the separate dictated note~for this date of service dictated separately.~Patient seen individually. Discussed the patient with Nursing staff reviewed the chart.~Reviewed interim history and current functioning. Reviewed vital signs,~Labs/ Radiology~and current medications noted below. Continue current treatment with the changes noted in the dictated addendum note Assessment: Vital Signs: Vital Signs Date Time Temp Pulse Resp B/P (MAP) Pulse Ox O2 Delivery O2 Flow Rate FiO2 05/16/18 16:04 97.8 67 18 129/85 (100) 98 I&O Intake and Output 05/16/18 07:00 Intake Total 840 ml Balance 840 ml Intake Oral 840 ml # Voids 1 Labs: Laboratory Tests Test 05/16/18 07:36 05/16/18 11:42 05/16/18 17:02 05/16/18 19:09 Glucose (Fingerstick) 60 mg/dL (70-99) L 220 mg/dL (70-99) H 148 mg/dL (70-99) H 267 mg/dL (70-99) H Current Medications: Meds: Current Medications Acetaminophen (Tylenol) 650 mg PRN Q6HRS PRN PO PAIN / TEMP; Start 05/04/18 at 17:30 Multi-Ingredient Ointment (Analgesic [place]) 1 porsche PRN QID PRN TP MUSCLE PAIN; Start 05/04/18 at 17:30 Al Hydroxide/Mg Hydroxide (Mylanta Plus Xs) 15 ml PRN AFTMEALHC PRN PO DYSPEPSIA; Start 05/04/18 at 17:30 Magnesium Hydroxide (Milk Of Magnesia) 2,400 mg PRN QHS PRN PO CONSTIPATION; Start 05/04/18 at 17:30 Vitamin D (Vitamin D3) 50,000 unit QMONTH PO ; Start 06/03/18 at 09:00 Insulin Human Lispro (HumaLOG) 0-7 TIDWMEALS SQ ; Start 05/05/18 at 08:00; Stop 05/05/18 at 08:00; Status DC Nystatin (Nystop) 1 porsche BID TP Last administered on 05/16/18at 19:35; Start 05/04 at 21:00 Nystatin (Nystop) 1 porsche PRN TID PRN TP RASH; Start 05/04/18 at 18:00 Fenofibrate (Tricor) 48 mg QHS PO Last administered on 05/16/18 19:35; Start at 21:00 Hydrocortisone (Proctosol-Hc) 1 porsche PRN BID PRN RC BURNING OR BLOOD IN RECTUM; Start 05/04/18 at 19:30 Lactobacillus Rhamnosus (Culturelle) 1 cap BID PO Last administered on 19:33; Start 05/04/18 at 21:00 Levothyroxine Sodium (Synthroid) 25 mcg DAILY06 PO Last administered on 05:26; Start 05/05/18 at 06:00 Lisinopril (Prinivil) 5 mg DAILY PO Last administered on 05/16/18 08:08; Start 05/05/18 at 09:00 Pantoprazole Sodium (Protonix) 40 mg DAILYAC PO Last administered on 05/16/18 08:09; Start 05/05/18 at 07:30 Clonazepam (KlonoPIN) 0.5 mg BID@1200,2100 PO Last administered on 05/16/18at 19: 34; Start 05/04/18 at 21:00 Fluvoxamine Maleate (Luvox) 100 mg QHS PO Last administered on 05/05/18at 20:07 ; Start 05/04/18 at 21:00; Stop 05/06/18 at 18:15; Status DC Quetiapine Fumarate (SEROquel) 25 mg BID PO Last administered on 05/05/18at 20: 07; Start 05/04/18 at 21:00; Stop 05/05/18 at 21:01; Status DC Trazodone HCl (Desyrel) 50 mg TIDWMEALS PO Last administered on 05/07/18at 17:52 ; Start 05/04/18 at 19:30; Stop 05/07/18 at 18:34; Status DC Insulin Human Lispro (HumaLOG) 0-7 UNITS TIDWMEALS SQ Last administered on 05/10at 09:37; Start 05/05/18 at 08:00; Stop 05/10/18 at 18:43; Status DC Insulin Human Lispro (HumaLOG) 10 units DAILY SQ Last administered on at 09:00; Start 05/06/18 at 09:00; Stop 05/14/18 at 14:30; Status DC Insulin Human Lispro (HumaLOG) 25 units NOON SQ Last administered on 05/13/18at 12:00; Start 05/05/18 at 12:00; Stop 05/14/18 at 14:30; Status DC Insulin Human Lispro (HumaLOG) 15 units 1700 SQ Last administered on 05/13/18at 17:00; Start 05/05/18 at 17:00; Stop 05/14/18 at 14:30; Status DC Insulin Glargine (Lantus) 50 units QHS SQ Last administered on 05/16/18at 19:37; Start 05/05/18 at 21:00 Fluvoxamine Maleate (Luvox) 125 mg QHS PO Last administered on 05/08/18at 20:40 ; Start 05/06/18 at 21:00; Stop 05/08/18 at 20:50; Status DC Fluvoxamine Maleate (Luvox) 25 mg QHS PO Last administered on 05/07/18at 21:01; Start 05/06/18 at 21:00; Stop 05/08/18 at 19:26; Status DC Trazodone HCl (Desyrel) 75 mg DAILY@0900 PO Last administered on 05/16/18at 08:08 ; Start 05/08/18 at 09:00 Trazodone HCl (Desyrel) 50 mg BID@1300,1700 PO Last administered on 05/14/18at 12:25; Start 05/08/18 at 13:00; Stop 05/14/18 at 16:22; Status DC Fluvoxamine Maleate (Luvox) 75 mg QHS PO ; Start 05/08/18 at 21:00; Stop at 21:00; Status DC Fluvoxamine Maleate (Luvox) 150 mg HS PO Last administered on 05/16/18at 19:34; Start 05/08/18 at 21:00 Oxcarbazepine (Trileptal) 150 mg 0900,1700 PO Last administered on 05/13/18at 18 :22; Start 05/09/18 at 17:00; Stop 05/13/18 at 19:18; Status DC Olanzapine (ZyPREXA ZYDIS) 2.5 mg PRN Q2HR PRN PO PSYCHOSIS Last administered on 05/14/18at 14:37; Start 05/09/18 at 17:30 Oxcarbazepine (Trileptal) 300 mg 0900,1700 PO Last administered on 05/16/18at 18: 00; Start 05/14/18 at 09:00 Insulin Human Lispro (HumaLOG) 0-7 UNITS TIDWMEALS SQ Last administered on at 12:00; Start 05/14/18 at 17:00 Dextrose 12.5 gm PRN Q15MIN PRN IV SEE COMMENTS; Start 05/14/18 at 14:30 Trazodone HCl (Desyrel) 75 mg BID@1300,1700 PO Last administered on 05/16/18at 18 :00; Start 05/14/18 at 17:00 Active Scripts Active Reported Humalog (Insulin Lispro) 100 Unit/1 Ml Insuln.pen 0-7 Unit SQ TIDWMEALS BG 70-150= 0 units if eating; 0 units if not eating/HS BG 151-200= 3 units if eating; 0 units if not eating/HS BG 201-250= 4 units if eating; 2 units if not eating/HS BG 251-300= 6 units if eating; 3 units if not eating/HS BG 301-351= 7 units if eating; 4 units if not eating/HS BG >351= call provider for orders Fenofibrate (Fenofibrate Nanocrystallized) 48 Mg Tablet 48 Mg PO QHS Protonix (Pantoprazole Sodium) 40 Mg Tablet.dr 40 Mg PO DAILYAC Fluvoxamine Maleate 100 Mg Tablet 100 Mg PO HS Seroquel (Quetiapine Fumarate) 25 Mg Tablet 25 Mg PO BID Nystop (Nystatin) 60 Gm Powder 1 Porsche TP BID Lisinopril 5 Mg Tablet 5 Mg PO DAILY Nystop (Nystatin) 60 Gm Powder 1 [place]orsche TP PRN TID PRN Trazodone Hcl 50 Mg Tablet 50 Mg PO TIDWMEALS Clonazepam 0.5 Mg Tablet 0.5 Mg PO BID@1200,2100 Anusol-Hc (Hydrocortisone Acetate) 25 Mg Supp.rect 25 Mg RC PRN DAILY PRN Probiotic (Lactobacillus Acidophilus) 1 Each Capsule 1 Cap PO BID Levothyroxine Sodium 25 Mcg Tablet 25 Mcg PO DAILY06 Vitamin D3 (Cholecalciferol (Vitamin D3)) 50,000 Unit Capsule 50,000 Unit PO QMONTH Administer on the 15th of every Month I have reviewed the current psychotropics carefully including drug interactions. Risk benefit ratio favors no change other than as noted in my dictated progress note. Diagnosis: Problems: (1) Intellectual disability (2) Anxiety (3) Dementia (4) Impulse control disorder (5) Impulse control disorder (6) Obsessive compulsive disorder (7) Medical clearance for psychiatric admission (8) IMPULSE DISORDER, UNSPECIFIED (9) Dementia (10) DMII (diabetes mellitus, type 2) IDA LAINEZ MD May 16, 2018 21:02
[2018-05-17] MEDS: LEVOTHYROXINE 25 MCG TABLET. PO SCH (05:15)
[2018-05-17 06:10] VITALS: BP 131/82
[2018-05-17 07:54] LABS: BASO # 0.1 x10^3/uL (0.0-0.2); BASO % 1 % (0-3); EOS # 0.5 x10^3/uL (0.0-0.7); EOS % 7 % (0-3); HEMATOCRIT 37.9 % (36.0-47.0); HEMOGLOBIN 12.7 g/dL (12.0-15.5); LYMPH # 2.7 x10^3/uL (1.0-4.8); LYMPH % 33 % (24-48); MEAN CORPUSCULAR HEMOGLOBIN 30 pg (25-35); MEAN CORPUSCULAR HGB CONC 34 g/dL (31-37); MEAN CORPUSCULAR VOLUME 90 fL (79-100); MONO # 0.4 x10^3/uL (0.0-1.1); MONO % 5 % (0-9); NEUT # 4.4 x10^3uL (1.8-7.7); NEUT % 54 % (31-73); PLATELET COUNT 129 x10^3/uL (140-400); RED CELL DISTRIBUTION WIDTH 16.2 % (11.5-14.5); WHITE BLOOD COUNT 8.1 x10^3/uL (4.0-11.0)
[2018-05-17] MEDS: INSULIN LISPRO 300 UNITS/3 ML INSULN.PEN. SQ SCH ×3 (08:00→16:37)
[2018-05-17 08:11] LABS: ALBUMIN 3.5 g/dL (3.4-5.0); ALBUMIN/GLOBULIN RATIO 0.9 (1.0-1.7); CALCIUM 9.3 mg/dL (8.5-10.1); CREATININE 0.9 mg/dL (0.6-1.0); GFR 61.7; POTASSIUM 4.1 mmol/L (3.5-5.1); TOTAL BILIRUBIN 0.4 mg/dL (0.2-1.0); TOTAL PROTEIN 7.3 g/dL (6.4-8.2)
[2018-05-17] MEDS: LACTOBACILLUS RHAMNOSUS GG 1 CAPSULE. PO SCH ×2 (08:29→19:48)
[2018-05-17] MEDS: PANTOPRAZOLE 40 MG TABLET. PO SCH (08:29)
[2018-05-17] MEDS: LISINOPRIL 5 MG TABLET. PO SCH (08:29)
[2018-05-17] MEDS: NYSTATIN TOPICAL POWDER 15GM BOTTLE. TP SCH ×2 (08:30→19:48)
[2018-05-17] MEDS: traZODone 50 MG TABLET. PO SCH ×3 (08:30→16:37)
[2018-05-17] MEDS: clonazePAM 0.5 MG TABLET PO SCH ×2 (12:15→19:48)
[2018-05-17 16:08] VITALS: BP 132/70
[2018-05-17] MEDS: FENOFIBRATE NANOCRYSTALLIZED 48 MG TABLET PO SCH (19:48)
[2018-05-17] MEDS: INSULIN GLARGINE 300 UNITS/3 ML INSULN.PEN. SQ SCH (19:50)
--- NOTE | 2018-05-17 20:53 | PDOC ---
Exam Note: Marcelo Note: Please also refer to the separate dictated note~for this date of service dictated separately.~Patient seen individually. Discussed the patient with Nursing staff reviewed the chart.~Reviewed interim history and current functioning. Reviewed vital signs,~Labs/ Radiology~and current medications noted below. Continue current treatment with the changes noted in the dictated addendum note Assessment: Vital Signs: Vital Signs Date Time Temp Pulse Resp B/P (MAP) Pulse Ox O2 Delivery O2 Flow Rate FiO2 05/17/18 16:08 98.0 72 16 132/70 (90) 93 I&O Intake and Output 05/17/18 07:00 Intake Total 1320 ml Balance 1320 ml Intake Oral 1320 ml # Voids 2 Labs: Laboratory Tests Test 05/17/18 07:30 05/17/18 07:35 05/17/18 11:26 05/17/18 16:34 White Blood Count 8.1 x10^3/uL (4.0-11.0) Red Blood Count 4.20 x10^6/uL (3.50-5.40) Hemoglobin 12.7 g/dL (12.0-15.5) Hematocrit 37.9 % (36.0-47.0) Mean Corpuscular Volume 90 fL (79-100) Mean Corpuscular Hemoglobin 30 pg (25-35) Mean Corpuscular Hemoglobin Concent 34 g/dL (31-37) Red Cell Distribution Width 16.2 % (11.5-14.5) H Platelet Count 129 x10^3/uL (140-400) L Neutrophils (%) (Auto) 54 % (31-73) Lymphocytes (%) (Auto) 33 % (24-48) Monocytes (%) (Auto) 5 % (0-9) Eosinophils (%) (Auto) 7 % (0-3) H Basophils (%) (Auto) 1 % (0-3) Neutrophils # (Auto) 4.4 x10^3uL (1.8-7.7) Lymphocytes # (Auto) 2.7 x10^3/uL (1.0-4.8) Monocytes # (Auto) 0.4 x10^3/uL (0.0-1.1) Eosinophils # (Auto) 0.5 x10^3/uL (0.0-0.7) Basophils # (Auto) 0.1 x10^3/uL (0.0-0.2) Sodium Level 142 mmol/L (136-145) Potassium Level 4.1 mmol/L (3.5-5.1) Chloride Level 105 mmol/L (98-107) Carbon Dioxide Level 29 mmol/L (21-32) Anion Gap 8 (6-14) Blood Urea Nitrogen 16 mg/dL (7-20) Creatinine 0.9 mg/dL (0.6-1.0) Estimated GFR (Cockcroft-Gault) 61.7 BUN/Creatinine Ratio 18 (6-20) Glucose Level 96 mg/dL (70-99) Calcium Level 9.3 mg/dL (8.5-10.1) Total Bilirubin 0.4 mg/dL (0.2-1.0) Aspartate Amino Transferase (AST) 18 U/L (15-37) Alanine Aminotransferase (ALT) 26 U/L (14-59) Alkaline Phosphatase 59 U/L (46-116) Total Protein 7.3 g/dL (6.4-8.2) Albumin 3.5 g/dL (3.4-5.0) Albumin/Globulin Ratio 0.9 (1.0-1.7) L Glucose (Fingerstick) 102 mg/dL (70-99) H 206 mg/dL (70-99) H 145 mg/dL (70-99) H Test 05/17/18 19:37 Glucose (Fingerstick) 252 mg/dL (70-99) H Current Medications: Meds: Current Medications Acetaminophen (Tylenol) 650 mg PRN Q6HRS PRN PO PAIN / TEMP; Start 05/04/18 at 17:30 Multi-Ingredient Ointment (Analgesic [place]) 1 porsche PRN QID PRN TP MUSCLE PAIN; Start 05/04/18 at 17:30 Al Hydroxide/Mg Hydroxide (Mylanta Plus Xs) 15 ml PRN AFTMEALHC PRN PO DYSPEPSIA; Start 05/04/18 at 17:30 Magnesium Hydroxide (Milk Of Magnesia) 2,400 mg PRN QHS PRN PO CONSTIPATION; Start 05/04/18 at 17:30 Vitamin D (Vitamin D3) 50,000 unit QMONTH PO ; Start 06/03/18 at 09:00 Insulin Human Lispro (HumaLOG) 0-7 TIDWMEALS SQ ; Start 05/05/18 at 08:00; Stop 05/05/18 at 08:00; Status DC Nystatin (Nystop) 1 porsche BID TP Last administered on 05/17/18 19:48; Start 05/04 at 21:00 Nystatin (Nystop) 1 porsche PRN TID PRN TP RASH; Start 05/04/18 at 18:00 Fenofibrate (Tricor) 48 mg QHS PO Last administered on 05/17/18 19:48; Start at 21:00 Hydrocortisone (Proctosol-Hc) 1 porsche PRN BID PRN RC BURNING OR BLOOD IN RECTUM; Start 05/04/18 at 19:30 Lactobacillus Rhamnosus (Culturelle) 1 cap BID PO Last administered on 19:48; Start 05/04/18 at 21:00 Levothyroxine Sodium (Synthroid) 25 mcg DAILY06 PO Last administered on 05:15; Start 05/05/18 at 06:00 Lisinopril (Prinivil) 5 mg DAILY PO Last administered on 05/17/18 08:29; Start 05/05/18 at 09:00 Pantoprazole Sodium (Protonix) 40 mg DAILYAC PO Last administered on 05/17/18 08:29; Start 05/05/18 at 07:30 Clonazepam (KlonoPIN) 0.5 mg BID@1200,2100 PO Last administered on 05/17/18 19: 48; Start 05/04/18 at 21:00 Fluvoxamine Maleate (Luvox) 100 mg QHS PO Last administered on 05/05/18 20:07 ; Start 05/04/18 at 21:00; Stop 05/06/18 at 18:15; Status DC Quetiapine Fumarate (SEROquel) 25 mg BID PO Last administered on 05/05/18 20: 07; Start 05/04/18 at 21:00; Stop 05/05/18 at 21:01; Status DC Trazodone HCl (Desyrel) 50 mg TIDWMEALS PO Last administered on 05/07/18 17:52 ; Start 05/04/18 at 19:30; Stop 05/07/18 at 18:34; Status DC Insulin Human Lispro (HumaLOG) 0-7 UNITS TIDWMEALS SQ Last administered on 05/10at 09:37; Start 05/05/18 at 08:00; Stop 05/10/18 at 18:43; Status DC Insulin Human Lispro (HumaLOG) 10 units DAILY SQ Last administered on at 09:00; Start 05/06/18 at 09:00; Stop 05/14/18 at 14:30; Status DC Insulin Human Lispro (HumaLOG) 25 units NOON SQ Last administered on 05/13/18at 12:00; Start 05/05/18 at 12:00; Stop 05/14/18 at 14:30; Status DC Insulin Human Lispro (HumaLOG) 15 units 1700 SQ Last administered on 05/13/18at 17:00; Start 05/05/18 at 17:00; Stop 05/14/18 at 14:30; Status DC Insulin Glargine (Lantus) 50 units QHS SQ Last administered on 05/17/18at 19:50; Start 05/05/18 at 21:00 Fluvoxamine Maleate (Luvox) 125 mg QHS PO Last administered on 05/08/18at 20:40 ; Start 05/06/18 at 21:00; Stop 05/08/18 at 20:50; Status DC Fluvoxamine Maleate (Luvox) 25 mg QHS PO Last administered on 05/07/18at 21:01; Start 05/06/18 at 21:00; Stop 05/08/18 at 19:26; Status DC Trazodone HCl (Desyrel) 75 mg DAILY@0900 PO Last administered on 05/17/18at 08:30 ; Start 05/08/18 at 09:00 Trazodone HCl (Desyrel) 50 mg BID@1300,1700 PO Last administered on 05/14/18at 12:25; Start 05/08/18 at 13:00; Stop 05/14/18 at 16:22; Status DC Fluvoxamine Maleate (Luvox) 75 mg QHS PO ; Start 05/08/18 at 21:00; Stop at 21:00; Status DC Fluvoxamine Maleate (Luvox) 150 mg HS PO Last administered on 05/17/18at 19:48; Start 05/08/18 at 21:00 Oxcarbazepine (Trileptal) 150 mg 0900,1700 PO Last administered on 05/13/18at 18 :22; Start 05/09/18 at 17:00; Stop 05/13/18 at 19:18; Status DC Olanzapine (ZyPREXA ZYDIS) 2.5 mg PRN Q2HR PRN PO PSYCHOSIS Last administered on 05/14/18at 14:37; Start 05/09/18 at 17:30 Oxcarbazepine (Trileptal) 300 mg 0900,1700 PO Last administered on 05/17/18at 16: 37; Start 05/14/18 at 09:00 Insulin Human Lispro (HumaLOG) 0-7 UNITS TIDWMEALS SQ Last administered on at 12:17; Start 05/14/18 at 17:00 Dextrose 12.5 gm PRN Q15MIN PRN IV SEE COMMENTS; Start 05/14/18 at 14:30 Trazodone HCl (Desyrel) 75 mg BID@1300,1700 PO Last administered on 05/17/18at 16 :37; Start 05/14/18 at 17:00 Active Scripts Active Reported Humalog (Insulin Lispro) 100 Unit/1 Ml Insuln.pen 0-7 Unit SQ TIDWMEALS BG 70-150= 0 units if eating; 0 units if not eating/HS BG 151-200= 3 units if eating; 0 units if not eating/HS BG 201-250= 4 units if eating; 2 units if not eating/HS BG 251-300= 6 units if eating; 3 units if not eating/HS BG 301-351= 7 units if eating; 4 units if not eating/HS BG >351= call provider for orders Fenofibrate (Fenofibrate Nanocrystallized) 48 Mg Tablet 48 Mg PO QHS Protonix (Pantoprazole Sodium) 40 Mg Tablet.dr 40 Mg PO DAILYAC Fluvoxamine Maleate 100 Mg Tablet 100 Mg PO HS Seroquel (Quetiapine Fumarate) 25 Mg Tablet 25 Mg PO BID Nystop (Nystatin) 60 Gm Powder 1 Porsche TP BID Lisinopril 5 Mg Tablet 5 Mg PO DAILY Nystop (Nystatin) 60 Gm Powder 1 Porsche TP PRN TID PRN Trazodone Hcl 50 Mg Tablet 50 Mg PO TIDWMEALS Clonazepam 0.5 Mg Tablet 0.5 Mg PO BID@1200,2100 Anusol-Hc (Hydrocortisone Acetate) 25 Mg Supp.rect 25 Mg RC PRN DAILY PRN Probiotic (Lactobacillus Acidophilus) 1 Each Capsule 1 Cap PO BID Levothyroxine Sodium 25 Mcg Tablet 25 Mcg PO DAILY06 Vitamin D3 (Cholecalciferol (Vitamin D3)) 50,000 Unit Capsule 50,000 Unit PO QMONTH Administer on the 15th of every Month I have reviewed the current psychotropics carefully including drug interactions. Risk benefit ratio favors no change other than as noted in my dictated progress note. Diagnosis: Problems: (1) Intellectual disability (2) Anxiety (3) Dementia (4) Impulse control disorder (5) Impulse control disorder (6) Obsessive compulsive disorder (7) Medical clearance for psychiatric admission (8) IMPULSE DISORDER, UNSPECIFIED (9) Dementia (10) DMII (diabetes mellitus, type 2) IDA LAINEZ MD May 17, 2018 20:53
--- NOTE | 2018-05-18 00:35 | PN ---
DATE: 05/15/2018 PSYCHIATRIC PROGRESS NOTE This is a late entry 05/15, covers elements not covered in my initial note. SUBJECTIVE: I met with the patient in the evening at length repeatedly as she would follow me around the unit. The patient slept 7 hours previous evening, somewhat better, less anxious, per nursing report. REVIEW OF SYSTEMS: Ambulation impaired with walker. No CV, , pulmonary, eye system symptoms on review. She has vague somatic symptoms. MENTAL STATUS EXAM: Oriented to herself and situation. Speech coherent, rapid, loud at times, obsessive, repetitive, perhaps a little better. Abstraction fair, computation impaired, language function intact. Mood and affect remain somewhat labile. LABORATORY DATA: Reviewed. IMPRESSION: Bipolar 1 disorder, mixed. Intellectual disability. Rest unchanged. PLAN: No change from initial note. MAN Stuart LAINEZ MD DR: YO/bakari JOB#: [id number] / [id number]
--- NOTE | 2018-05-18 01:37 | PN ---
DATE: 05/16/2018 This late entry 05/16 covers elements not covered in my initial note. SUBJECTIVE: I met with the patient in the evening, staffed at treatment team meeting with the entire team in the morning, and Ricky, patient's sister and Nga, [id number], attended. Lengthy treatment team meeting discussed her progress, continued mood lability, obsessiveness, repetitively asking about discharge plans. Ricky expressed desire to have patient off all psychotropics. We discussed outpatient followup at post-stabilization and they could consider tapering the medications very very slowly as an outpatient rather than in the hospital. REVIEW OF SYSTEMS: Ambulation impaired with walker. No CV, , pulmonary, eye, ENT system symptoms on review. Reliability poor. MENTAL STATUS EXAM: Oriented to herself and situation. Speech coherent, rapid, repetitive, abstraction fair, computation impaired, language function intact, attention span short. Mood and affect, obsessive, but improved. LABORATORY DATA: Reviewed. IMPRESSION: Obsessive-compulsive disorder, intellectual disability, bipolar 1 disorder, mixed. PLAN: Continue psychotropics from initial note. MAN Stuart LAINEZ MD DR: YO/bakari JOB#: [id number] / [id number]
[2018-05-18] MEDS: LEVOTHYROXINE 25 MCG TABLET. PO SCH (05:29)
[2018-05-18 06:15] VITALS: BP 131/83
[2018-05-18] MEDS: LISINOPRIL 5 MG TABLET. PO SCH (08:16)
[2018-05-18] MEDS: PANTOPRAZOLE 40 MG TABLET. PO SCH (08:16)
[2018-05-18] MEDS: traZODone 50 MG TABLET. PO SCH ×3 (08:16→16:42)
[2018-05-18] MEDS: LACTOBACILLUS RHAMNOSUS GG 1 CAPSULE. PO SCH ×2 (08:16→19:59)
[2018-05-18] MEDS: INSULIN LISPRO 300 UNITS/3 ML INSULN.PEN. SQ SCH ×3 (08:18→16:43)
[2018-05-18] MEDS: NYSTATIN TOPICAL POWDER 15GM BOTTLE. TP SCH ×2 (08:20→20:00)
[2018-05-18] MEDS: clonazePAM 0.5 MG TABLET PO SCH ×2 (12:41→20:01)
[2018-05-18 16:26] VITALS: BP 119/69
[2018-05-18] MEDS: FENOFIBRATE NANOCRYSTALLIZED 48 MG TABLET PO SCH (20:00)
[2018-05-18] MEDS: INSULIN GLARGINE 300 UNITS/3 ML INSULN.PEN. SQ SCH (20:02)
[2018-05-19] MEDS: LEVOTHYROXINE 25 MCG TABLET. PO SCH (05:44)
[2018-05-19 06:08] VITALS: BP 129/57
[2018-05-19] MEDS: PANTOPRAZOLE 40 MG TABLET. PO SCH (07:45)
[2018-05-19] MEDS: LISINOPRIL 5 MG TABLET. PO SCH (07:45)
[2018-05-19] MEDS: traZODone 50 MG TABLET. PO SCH ×3 (07:45→17:00)
[2018-05-19] MEDS: LACTOBACILLUS RHAMNOSUS GG 1 CAPSULE. PO SCH ×2 (07:46→19:51)
[2018-05-19] MEDS: NYSTATIN TOPICAL POWDER 15GM BOTTLE. TP SCH ×2 (07:46→19:51)
[2018-05-19] MEDS: INSULIN LISPRO 300 UNITS/3 ML INSULN.PEN. SQ SCH ×3 (08:00→17:00)
[2018-05-19] MEDS: clonazePAM 0.5 MG TABLET PO SCH ×2 (12:22→19:51)
[2018-05-19 16:41] VITALS: BP 121/67
[2018-05-19] MEDS: FENOFIBRATE NANOCRYSTALLIZED 48 MG TABLET PO SCH (19:52)
[2018-05-19] MEDS: INSULIN GLARGINE 300 UNITS/3 ML INSULN.PEN. SQ SCH (19:55)
--- NOTE | 2018-05-19 20:22 | PDOC ---
Exam Note: Marcelo Note: Late entry for date of service May. Please also refer to the separate dictated note~for this date of service dictated separately.~Patient seen individually. Discussed the patient with Nursing staff reviewed the chart.~ Reviewed interim history and current functioning. Reviewed vital signs,~Labs/ Radiology~and current medications noted below. Continue current treatment with the changes noted in the dictated addendum note Assessment: Vital Signs: VS - Last 72 Hours, by Label Date Time Temp Pulse Resp B/P (MAP) Pulse Ox O2 Delivery O2 Flow Rate FiO2 05/19/18 16:41 97.1 87 24 121/67 (85) 97 Room Air 05/19/18 07:45 67 129/57 05/19/18 06:08 96.3 67 20 129/57 (81) 100 05/18/18 16:26 97.6 65 16 119/69 (86) 94 05/18/18 08:16 69 131/83 05/18/18 06:15 97.9 69 18 131/83 (99) 92 05/17/18 16:08 98.0 72 16 132/70 (90) 93 05/17/18 08:29 73 131/82 05/17/18 06:10 97.9 73 16 131/82 (98) 96 Vital Signs Date Time Temp Pulse Resp B/P (MAP) Pulse Ox O2 Delivery O2 Flow Rate FiO2 05/19/18 16:41 97.1 87 24 121/67 (85) 97 Room Air I&O Intake and Output 05/19/18 07:00 Intake Total 960 ml Balance 960 ml Intake Oral 960 ml # Voids 2 Labs: Laboratory Tests Test 05/19/18 07:33 05/19/18 11:41 05/19/18 16:58 05/19/18 19:11 Glucose (Fingerstick) 141 mg/dL (70-99) H 252 mg/dL (70-99) H 168 mg/dL (70-99) H 186 mg/dL (70-99) H Current Medications: Meds: Current Medications Acetaminophen (Tylenol) 650 mg PRN Q6HRS PRN PO PAIN / TEMP; Start 05/04/18 at 17:30 Multi-Ingredient Ointment (Analgesic [place]) 1 porsche PRN QID PRN TP MUSCLE PAIN; Start 05/04/18 at 17:30 Al Hydroxide/Mg Hydroxide (Mylanta Plus Xs) 15 ml PRN AFTMEALHC PRN PO DYSPEPSIA; Start 05/04/18 at 17:30 Magnesium Hydroxide (Milk Of Magnesia) 2,400 mg PRN QHS PRN PO CONSTIPATION; Start 05/04/18 at 17:30 Vitamin D (Vitamin D3) 50,000 unit QMONTH PO ; Start 06/03/18 at 09:00 Insulin Human Lispro (HumaLOG) 0-7 TIDWMEALS SQ ; Start 05/05/18 at 08:00; Stop 05/05/18 at 08:00; Status DC Nystatin (Nystop) 1 porsche BID TP Last administered on 05/19/18 19:51; Start 05/04 at 21:00 Nystatin (Nystop) 1 porsche PRN TID PRN TP RASH; Start 05/04/18 at 18:00 Fenofibrate (Tricor) 48 mg QHS PO Last administered on 05/19/18at 19:52; Start at 21:00 Hydrocortisone (Proctosol-Hc) 1 porsche PRN BID PRN RC BURNING OR BLOOD IN RECTUM; Start 05/04/18 at 19:30 Lactobacillus Rhamnosus (Culturelle) 1 cap BID PO Last administered on at 19:51; Start 05/04/18 at 21:00 Levothyroxine Sodium (Synthroid) 25 mcg DAILY06 PO Last administered on at 05:44; Start 05/05/18 at 06:00 Lisinopril (Prinivil) 5 mg DAILY PO Last administered on 05/19/18at 07:45; Start 05/05/18 at 09:00 Pantoprazole Sodium (Protonix) 40 mg DAILYAC PO Last administered on 05/19/18at 07:45; Start 05/05/18 at 07:30 Clonazepam (KlonoPIN) 0.5 mg BID@1200,2100 PO Last administered on 05/19/18 19: 51; Start 05/04/18 at 21:00 Fluvoxamine Maleate (Luvox) 100 mg QHS PO Last administered on 05/05/18at 20:07 ; Start 05/04/18 at 21:00; Stop 05/06/18 at 18:15; Status DC Quetiapine Fumarate (SEROquel) 25 mg BID PO Last administered on 05/05/18at 20: 07; Start 05/04/18 at 21:00; Stop 05/05/18 at 21:01; Status DC Trazodone HCl (Desyrel) 50 mg TIDWMEALS PO Last administered on 05/07/18at 17:52 ; Start 05/04/18 at 19:30; Stop 05/07/18 at 18:34; Status DC Insulin Human Lispro (HumaLOG) 0-7 UNITS TIDWMEALS SQ Last administered on 05/10at 09:37; Start 05/05/18 at 08:00; Stop 05/10/18 at 18:43; Status DC Insulin Human Lispro (HumaLOG) 10 units DAILY SQ Last administered on at 09:00; Start 05/06/18 at 09:00; Stop 05/14/18 at 14:30; Status DC Insulin Human Lispro (HumaLOG) 25 units NOON SQ Last administered on 05/13/18at 12:00; Start 05/05/18 at 12:00; Stop 05/14/18 at 14:30; Status DC Insulin Human Lispro (HumaLOG) 15 units 1700 SQ Last administered on 05/13/18at 17:00; Start 05/05/18 at 17:00; Stop 05/14/18 at 14:30; Status DC Insulin Glargine (Lantus) 50 units QHS SQ Last administered on 05/19/18at 19:55; Start 05/05/18 at 21:00 Fluvoxamine Maleate (Luvox) 125 mg QHS PO Last administered on 05/08/18at 20:40 ; Start 05/06/18 at 21:00; Stop 05/08/18 at 20:50; Status DC Fluvoxamine Maleate (Luvox) 25 mg QHS PO Last administered on 05/07/18at 21:01; Start 05/06/18 at 21:00; Stop 05/08/18 at 19:26; Status DC Trazodone HCl (Desyrel) 75 mg DAILY@0900 PO Last administered on 05/19/18at 07:45 ; Start 05/08/18 at 09:00 Trazodone HCl (Desyrel) 50 mg BID@1300,1700 PO Last administered on 05/14/18at 12:25; Start 05/08/18 at 13:00; Stop 05/14/18 at 16:22; Status DC Fluvoxamine Maleate (Luvox) 75 mg QHS PO ; Start 05/08/18 at 21:00; Stop at 21:00; Status DC Fluvoxamine Maleate (Luvox) 150 mg HS PO Last administered on 05/19/18at 19:51; Start 05/08/18 at 21:00 Oxcarbazepine (Trileptal) 150 mg 0900,1700 PO Last administered on 05/13/18at 18 :22; Start 05/09/18 at 17:00; Stop 05/13/18 at 19:18; Status DC Olanzapine (ZyPREXA ZYDIS) 2.5 mg PRN Q2HR PRN PO PSYCHOSIS Last administered on 05/14/18at 14:37; Start 05/09/18 at 17:30 Oxcarbazepine (Trileptal) 300 mg 0900,1700 PO Last administered on 05/19/18at 17: 00; Start 05/14/18 at 09:00 Insulin Human Lispro (HumaLOG) 0-7 UNITS TIDWMEALS SQ Last administered on at 17:00; Start 05/14/18 at 17:00 Dextrose 12.5 gm PRN Q15MIN PRN IV SEE COMMENTS; Start 05/14/18 at 14:30 Trazodone HCl (Desyrel) 75 mg BID@1300,1700 PO Last administered on 05/19/18at 17 :00; Start 05/14/18 at 17:00 Active Scripts Active Reported Humalog (Insulin Lispro) 100 Unit/1 Ml Insuln.pen 0-7 Unit SQ TIDWMEALS BG 70-150= 0 units if eating; 0 units if not eating/HS BG 151-200= 3 units if eating; 0 units if not eating/HS BG 201-250= 4 units if eating; 2 units if not eating/HS BG 251-300= 6 units if eating; 3 units if not eating/HS BG 301-351= 7 units if eating; 4 units if not eating/HS BG >351= call provider for orders Fenofibrate (Fenofibrate Nanocrystallized) 48 Mg Tablet 48 Mg PO QHS Protonix (Pantoprazole Sodium) 40 Mg Tablet.dr 40 Mg PO DAILYAC Fluvoxamine Maleate 100 Mg Tablet 100 Mg PO HS Seroquel (Quetiapine Fumarate) 25 Mg Tablet 25 Mg PO BID Nystop (Nystatin) 60 Gm Powder 1 Porsche TP BID Lisinopril 5 Mg Tablet 5 Mg PO DAILY Nystop (Nystatin) 60 Gm Powder 1 Porsche TP PRN TID PRN Trazodone Hcl 50 Mg Tablet 50 Mg PO TIDWMEALS Clonazepam 0.5 Mg Tablet 0.5 Mg PO BID@1200,2100 Anusol-Hc (Hydrocortisone Acetate) 25 Mg Supp.rect 25 Mg RC PRN DAILY PRN Probiotic (Lactobacillus Acidophilus) 1 Each Capsule 1 Cap PO BID Levothyroxine Sodium 25 Mcg Tablet 25 Mcg PO DAILY06 Vitamin D3 (Cholecalciferol (Vitamin D3)) 50,000 Unit Capsule 50,000 Unit PO QMONTH Administer on the 15th of every Month I have reviewed the current psychotropics carefully including drug interactions. Risk benefit ratio favors no change other than as noted in my dictated progress note. Diagnosis: Problems: (1) Intellectual disability (2) Anxiety (3) Dementia (4) Impulse control disorder (5) Impulse control disorder (6) Obsessive compulsive disorder (7) Medical clearance for psychiatric admission (8) IMPULSE DISORDER, UNSPECIFIED (9) Dementia (10) DMII (diabetes mellitus, type 2) IDA LAINEZ MD May 19, 2018 20:22
--- NOTE | 2018-05-19 20:23 | PDOC ---
Exam Note: Marcelo Note: Please also refer to the separate dictated note~for this date of service dictated separately.~Patient seen individually. Discussed the patient with Nursing staff reviewed the chart.~Reviewed interim history and current functioning. Reviewed vital signs,~Labs/ Radiology~and current medications noted below. Continue current treatment with the changes noted in the dictated addendum note Assessment: Vital Signs: Vital Signs Date Time Temp Pulse Resp B/P (MAP) Pulse Ox O2 Delivery O2 Flow Rate FiO2 05/19/18 16:41 97.1 87 24 121/67 (85) 97 Room Air I&O Intake and Output 05/19/18 07:00 Intake Total 960 ml Balance 960 ml Intake Oral 960 ml # Voids 2 Labs: Laboratory Tests Test 05/19/18 07:33 05/19/18 11:41 05/19/18 16:58 05/19/18 19:11 Glucose (Fingerstick) 141 mg/dL (70-99) H 252 mg/dL (70-99) H 168 mg/dL (70-99) H 186 mg/dL (70-99) H Current Medications: Meds: Current Medications Acetaminophen (Tylenol) 650 mg PRN Q6HRS PRN PO PAIN / TEMP; Start 05/04/18 at 17:30 Multi-Ingredient Ointment (Analgesic [place]) 1 porsche PRN QID PRN TP MUSCLE PAIN; Start 05/04/18 at 17:30 Al Hydroxide/Mg Hydroxide (Mylanta Plus Xs) 15 ml PRN AFTMEALHC PRN PO DYSPEPSIA; Start 05/04/18 at 17:30 Magnesium Hydroxide (Milk Of Magnesia) 2,400 mg PRN QHS PRN PO CONSTIPATION; Start 05/04/18 at 17:30 Vitamin D (Vitamin D3) 50,000 unit QMONTH PO ; Start 06/03/18 at 09:00 Insulin Human Lispro (HumaLOG) 0-7 TIDWMEALS SQ ; Start 05/05/18 at 08:00; Stop 05/05/18 at 08:00; Status DC Nystatin (Nystop) 1 porsche BID TP Last administered on 05/19/18at 19:51; Start 05/04 at 21:00 Nystatin (Nystop) 1 porsche PRN TID PRN TP RASH; Start 05/04/18 at 18:00 Fenofibrate (Tricor) 48 mg QHS PO Last administered on 05/19/18 19:52; Start at 21:00 Hydrocortisone (Proctosol-Hc) 1 porsche PRN BID PRN RC BURNING OR BLOOD IN RECTUM; Start 05/04/18 at 19:30 Lactobacillus Rhamnosus (Culturelle) 1 cap BID PO Last administered on 19:51; Start 05/04/18 at 21:00 Levothyroxine Sodium (Synthroid) 25 mcg DAILY06 PO Last administered on 05:44; Start 05/05/18 at 06:00 Lisinopril (Prinivil) 5 mg DAILY PO Last administered on 05/19/18 07:45; Start 05/05/18 at 09:00 Pantoprazole Sodium (Protonix) 40 mg DAILYAC PO Last administered on 05/19/18at 07:45; Start 05/05/18 at 07:30 Clonazepam (KlonoPIN) 0.5 mg BID@1200,2100 PO Last administered on 05/19/18at 19: 51; Start 05/04/18 at 21:00 Fluvoxamine Maleate (Luvox) 100 mg QHS PO Last administered on 05/05/18at 20:07 ; Start 05/04/18 at 21:00; Stop 05/06/18 at 18:15; Status DC Quetiapine Fumarate (SEROquel) 25 mg BID PO Last administered on 05/05/18at 20: 07; Start 05/04/18 at 21:00; Stop 05/05/18 at 21:01; Status DC Trazodone HCl (Desyrel) 50 mg TIDWMEALS PO Last administered on 05/07/18at 17:52 ; Start 05/04/18 at 19:30; Stop 05/07/18 at 18:34; Status DC Insulin Human Lispro (HumaLOG) 0-7 UNITS TIDWMEALS SQ Last administered on 05/10at 09:37; Start 05/05/18 at 08:00; Stop 05/10/18 at 18:43; Status DC Insulin Human Lispro (HumaLOG) 10 units DAILY SQ Last administered on at 09:00; Start 05/06/18 at 09:00; Stop 05/14/18 at 14:30; Status DC Insulin Human Lispro (HumaLOG) 25 units NOON SQ Last administered on 05/13/18at 12:00; Start 05/05/18 at 12:00; Stop 05/14/18 at 14:30; Status DC Insulin Human Lispro (HumaLOG) 15 units 1700 SQ Last administered on 05/13/18at 17:00; Start 05/05/18 at 17:00; Stop 05/14/18 at 14:30; Status DC Insulin Glargine (Lantus) 50 units QHS SQ Last administered on 05/19/18at 19:55; Start 05/05/18 at 21:00 Fluvoxamine Maleate (Luvox) 125 mg QHS PO Last administered on 05/08/18at 20:40 ; Start 05/06/18 at 21:00; Stop 05/08/18 at 20:50; Status DC Fluvoxamine Maleate (Luvox) 25 mg QHS PO Last administered on 05/07/18at 21:01; Start 05/06/18 at 21:00; Stop 05/08/18 at 19:26; Status DC Trazodone HCl (Desyrel) 75 mg DAILY@0900 PO Last administered on 05/19/18at 07:45 ; Start 05/08/18 at 09:00 Trazodone HCl (Desyrel) 50 mg BID@1300,1700 PO Last administered on 05/14/18at 12:25; Start 05/08/18 at 13:00; Stop 05/14/18 at 16:22; Status DC Fluvoxamine Maleate (Luvox) 75 mg QHS PO ; Start 05/08/18 at 21:00; Stop at 21:00; Status DC Fluvoxamine Maleate (Luvox) 150 mg HS PO Last administered on 05/19/18at 19:51; Start 05/08/18 at 21:00 Oxcarbazepine (Trileptal) 150 mg 0900,1700 PO Last administered on 05/13/18at 18 :22; Start 05/09/18 at 17:00; Stop 05/13/18 at 19:18; Status DC Olanzapine (ZyPREXA ZYDIS) 2.5 mg PRN Q2HR PRN PO PSYCHOSIS Last administered on 05/14/18at 14:37; Start 05/09/18 at 17:30 Oxcarbazepine (Trileptal) 300 mg 0900,1700 PO Last administered on 05/19/18at 17: 00; Start 05/14/18 at 09:00 Insulin Human Lispro (HumaLOG) 0-7 UNITS TIDWMEALS SQ Last administered on at 17:00; Start 05/14/18 at 17:00 Dextrose 12.5 gm PRN Q15MIN PRN IV SEE COMMENTS; Start 05/14/18 at 14:30 Trazodone HCl (Desyrel) 75 mg BID@1300,1700 PO Last administered on 05/19/18at 17 :00; Start 05/14/18 at 17:00 Active Scripts Active Reported Humalog (Insulin Lispro) 100 Unit/1 Ml Insuln.pen 0-7 Unit SQ TIDWMEALS BG 70-150= 0 units if eating; 0 units if not eating/HS BG 151-200= 3 units if eating; 0 units if not eating/HS BG 201-250= 4 units if eating; 2 units if not eating/HS BG 251-300= 6 units if eating; 3 units if not eating/HS BG 301-351= 7 units if eating; 4 units if not eating/HS BG >351= call provider for orders Fenofibrate (Fenofibrate Nanocrystallized) 48 Mg Tablet 48 Mg PO QHS Protonix (Pantoprazole Sodium) 40 Mg Tablet.dr 40 Mg PO DAILYAC Fluvoxamine Maleate 100 Mg Tablet 100 Mg PO HS Seroquel (Quetiapine Fumarate) 25 Mg Tablet 25 Mg PO BID Nystop (Nystatin) 60 Gm Powder 1 Porsche TP BID Lisinopril 5 Mg Tablet 5 Mg PO DAILY Nystop (Nystatin) 60 Gm Powder 1 Porsche TP PRN TID PRN Trazodone Hcl 50 Mg Tablet 50 Mg PO TIDWMEALS Clonazepam 0.5 Mg Tablet 0.5 Mg PO BID@1200,2100 Anusol-Hc (Hydrocortisone Acetate) 25 Mg Supp.rect 25 Mg RC PRN DAILY PRN Probiotic (Lactobacillus Acidophilus) 1 Each Capsule 1 Cap PO BID Levothyroxine Sodium 25 Mcg Tablet 25 Mcg PO DAILY06 Vitamin D3 (Cholecalciferol (Vitamin D3)) 50,000 Unit Capsule 50,000 Unit PO QMONTH Administer on the 15th of every Month I have reviewed the current psychotropics carefully including drug interactions. Risk benefit ratio favors no change other than as noted in my dictated progress note. Diagnosis: Problems: (1) Intellectual disability (2) Anxiety (3) Dementia (4) Impulse control disorder (5) Impulse control disorder (6) Obsessive compulsive disorder (7) Medical clearance for psychiatric admission (8) IMPULSE DISORDER, UNSPECIFIED (9) Dementia (10) DMII (diabetes mellitus, type 2) IDA LAINEZ MD May 19, 2018 20:23
--- NOTE | 2018-05-19 23:31 | PN ---
DATE: 05/17/2018 PSYCHIATRIC PROGRESS NOTE This late entry 05/17/2018 covers elements not covered in my initial note. SUBJECTIVE: Met with the patient in the evening. Overall, the patient is doing better, less anxious. REVIEW OF SYSTEMS: Vague somatic symptoms, impaired ambulation with walker. No CV, , pulmonary, eye, ENT system symptoms on review. Reliability poor. MENTAL STATUS EXAM: Oriented to herself, situation. Speech is coherent, rapid at times. Abstraction fair, computation impaired, language function is intact. Attention span short. She is quite obsessive. LABORATORY DATA: Reviewed. IMPRESSION: Unchanged from initial note. PLAN: No change from initial note. IDA LAINEZ MD DR: YO/bakari JOB#: [id number] / [id number]
[2018-05-20] MEDS: LEVOTHYROXINE 25 MCG TABLET. PO SCH (05:10)
[2018-05-20 06:46] VITALS: BP 152/67
[2018-05-20] MEDS: INSULIN LISPRO 300 UNITS/3 ML INSULN.PEN. SQ SCH ×3 (07:45→16:58)
[2018-05-20] MEDS: LACTOBACILLUS RHAMNOSUS GG 1 CAPSULE. PO SCH ×2 (08:49→20:47)
[2018-05-20] MEDS: LISINOPRIL 5 MG TABLET. PO SCH (08:49)
[2018-05-20] MEDS: traZODone 50 MG TABLET. PO SCH ×3 (08:51→16:58)
[2018-05-20] MEDS: PANTOPRAZOLE 40 MG TABLET. PO SCH (08:51)
[2018-05-20] MEDS: NYSTATIN TOPICAL POWDER 15GM BOTTLE. TP SCH ×2 (08:56→20:50)
[2018-05-20 09:32] LABS: BILIRUBIN,URINE NEG (NEG); CLARITY,URINE HAZY; COLOR,URINE YELLOW; GLUCOSE,URINE NEG (NEG); NITRITE,URINE NEG (NEG); UROBILINOGEN,URINE 0.2 mg/dL (0.2 mg/dL)
[2018-05-20 09:33] LABS: BACTERIA,URINE MOD /HPF (0-FEW); SQUAMOUS EPITHELIAL CELL,UR FEW /LPF
[2018-05-20] MEDS: clonazePAM 0.5 MG TABLET PO SCH ×2 (12:30→20:47)
[2018-05-20 16:25] VITALS: BP 112/73
[2018-05-20] MEDS: FENOFIBRATE NANOCRYSTALLIZED 48 MG TABLET PO SCH (20:50)
[2018-05-20] MEDS: INSULIN GLARGINE 300 UNITS/3 ML INSULN.PEN. SQ SCH (20:52)
--- NOTE | 2018-05-20 21:17 | PDOC ---
Exam Note: Marcelo Note: Please also refer to the separate dictated note~for this date of service dictated separately.~Patient seen individually. Discussed the patient with Nursing staff reviewed the chart.~Reviewed interim history and current functioning. Reviewed vital signs,~Labs/ Radiology~and current medications noted below. Continue current treatment with the changes noted in the dictated addendum note Assessment: Vital Signs: Vital Signs Date Time Temp Pulse Resp B/P (MAP) Pulse Ox O2 Delivery O2 Flow Rate FiO2 05/20/18 16:25 97.7 73 20 112/73 (86) 93 05/20/18 06:46 Room Air I&O Intake and Output 05/20/18 07:00 Intake Total 960 ml Balance 960 ml Intake Oral 960 ml Labs: Laboratory Tests Test 05/20/18 07:19 05/20/18 09:00 05/20/18 12:05 05/20/18 16:37 Glucose (Fingerstick) 75 mg/dL (70-99) 114 mg/dL (70-99) H 157 mg/dL (70-99) H Urine Collection Type Unknown Urine Color Yellow Urine Clarity Hazy Urine pH 6.5 Urine Specific [place] 1.020 Urine Protein Neg (NEG-TRACE) Urine Glucose (UA) Neg mg/dL (NEG) Urine Ketones (Stick) Neg mg/dL (NEG) Urine Blood Neg (NEG) Urine Nitrite Neg (NEG) Urine Bilirubin Neg (NEG) Urine Urobilinogen Dipstick 0.2 mg/dL (0.2 mg/dL) Urine Leukocyte Esterase Trace (NEG) Urine RBC 1-2 /HPF (0-2) Urine WBC 11-20 /HPF (0-4) Urine Squamous Epithelial Cells Few /LPF Urine Transitional Epithelial Cells Occ /LPF Urine Bacteria Mod /HPF (0-FEW) Urine Mucus Slight /LPF Test 05/20/18 19:23 Glucose (Fingerstick) 194 mg/dL (70-99) H Current Medications: Meds: Current Medications Acetaminophen (Tylenol) 650 mg PRN Q6HRS PRN PO PAIN / TEMP; Start 05/04/18 at 17:30 Multi-Ingredient Ointment (Analgesic [place]) 1 porsche PRN QID PRN TP MUSCLE PAIN; Start 05/04/18 at 17:30 Al Hydroxide/Mg Hydroxide (Mylanta Plus Xs) 15 ml PRN AFTMEALHC PRN PO DYSPEPSIA; Start 05/04/18 at 17:30 Magnesium Hydroxide (Milk Of Magnesia) 2,400 mg PRN QHS PRN PO CONSTIPATION; Start 05/04/18 at 17:30 Vitamin D (Vitamin D3) 50,000 unit QMONTH PO ; Start 06/03/18 at 09:00 Insulin Human Lispro (HumaLOG) 0-7 TIDWMEALS SQ ; Start 05/05/18 at 08:00; Stop 05/05/18 at 08:00; Status DC Nystatin (Nystop) 1 porsche BID TP Last administered on 05/20/18at 20:50; Start 05/04 at 21:00 Nystatin (Nystop) 1 porsche PRN TID PRN TP RASH; Start 05/04/18 at 18:00 Fenofibrate (Tricor) 48 mg QHS PO Last administered on 05/20/18at 20:50; Start at 21:00 Hydrocortisone (Proctosol-Hc) 1 porsche PRN BID PRN RC BURNING OR BLOOD IN RECTUM; Start 05/04/18 at 19:30 Lactobacillus Rhamnosus (Culturelle) 1 cap BID PO Last administered on at 20:47; Start 05/04/18 at 21:00 Levothyroxine Sodium (Synthroid) 25 mcg DAILY06 PO Last administered on at 05:10; Start 05/05/18 at 06:00 Lisinopril (Prinivil) 5 mg DAILY PO Last administered on 05/20/18at 08:49; Start 05/05/18 at 09:00 Pantoprazole Sodium (Protonix) 40 mg DAILYAC PO Last administered on 05/20/18at 08:51; Start 05/05/18 at 07:30 Clonazepam (KlonoPIN) 0.5 mg BID@1200,2100 PO Last administered on 05/20/18at 20: 47; Start 05/04/18 at 21:00 Fluvoxamine Maleate (Luvox) 100 mg QHS PO Last administered on 05/05/18at 20:07 ; Start 05/04/18 at 21:00; Stop 05/06/18 at 18:15; Status DC Quetiapine Fumarate (SEROquel) 25 mg BID PO Last administered on 05/05/18at 20: 07; Start 05/04/18 at 21:00; Stop 05/05/18 at 21:01; Status DC Trazodone HCl (Desyrel) 50 mg TIDWMEALS PO Last administered on 05/07/18at 17:52 ; Start 05/04/18 at 19:30; Stop 05/07/18 at 18:34; Status DC Insulin Human Lispro (HumaLOG) 0-7 UNITS TIDWMEALS SQ Last administered on 05/10at 09:37; Start 05/05/18 at 08:00; Stop 05/10/18 at 18:43; Status DC Insulin Human Lispro (HumaLOG) 10 units DAILY SQ Last administered on at 09:00; Start 05/06/18 at 09:00; Stop 05/14/18 at 14:30; Status DC Insulin Human Lispro (HumaLOG) 25 units NOON SQ Last administered on 05/13/18at 12:00; Start 05/05/18 at 12:00; Stop 05/14/18 at 14:30; Status DC Insulin Human Lispro (HumaLOG) 15 units 1700 SQ Last administered on 05/13/18at 17:00; Start 05/05/18 at 17:00; Stop 05/14/18 at 14:30; Status DC Insulin Glargine (Lantus) 50 units QHS SQ Last administered on 05/20/18at 20:52; Start 05/05/18 at 21:00 Fluvoxamine Maleate (Luvox) 125 mg QHS PO Last administered on 05/08/18at 20:40 ; Start 05/06/18 at 21:00; Stop 05/08/18 at 20:50; Status DC Fluvoxamine Maleate (Luvox) 25 mg QHS PO Last administered on 05/07/18at 21:01; Start 05/06/18 at 21:00; Stop 05/08/18 at 19:26; Status DC Trazodone HCl (Desyrel) 75 mg DAILY@0900 PO Last administered on 05/20/18at 08:51 ; Start 05/08/18 at 09:00 Trazodone HCl (Desyrel) 50 mg BID@1300,1700 PO Last administered on 7/31/18at 12:25; Start 05/08/18 at 13:00; Stop 05/14/18 at 16:22; Status DC Fluvoxamine Maleate (Luvox) 75 mg QHS PO ; Start 05/08/18 at 21:00; Stop at 21:00; Status DC Fluvoxamine Maleate (Luvox) 150 mg HS PO Last administered on 05/20/18at 20:46; Start 05/08/18 at 21:00 Oxcarbazepine (Trileptal) 150 mg 0900,1700 PO Last administered on 05/13/18at 18 :22; Start 05/09/18 at 17:00; Stop 05/13/18 at 19:18; Status DC Olanzapine (ZyPREXA ZYDIS) 2.5 mg PRN Q2HR PRN PO PSYCHOSIS Last administered on 05/20/18at 14:35; Start 05/09/18 at 17:30 Oxcarbazepine (Trileptal) 300 mg 0900,1700 PO Last administered on 05/20/18at 16: 58; Start 05/14/18 at 09:00 Insulin Human Lispro (HumaLOG) 0-7 UNITS TIDWMEALS SQ Last administered on at 16:58; Start 05/14/18 at 17:00 Dextrose 12.5 gm PRN Q15MIN PRN IV SEE COMMENTS; Start 05/14/18 at 14:30 Trazodone HCl (Desyrel) 75 mg BID@1300,1700 PO Last administered on 05/20/18at 16 :58; Start 05/14/18 at 17:00 Active Scripts Active Reported Humalog (Insulin Lispro) 100 Unit/1 Ml Insuln.pen 0-7 Unit SQ TIDWMEALS BG 70-150= 0 units if eating; 0 units if not eating/HS BG 151-200= 3 units if eating; 0 units if not eating/HS BG 201-250= 4 units if eating; 2 units if not eating/HS BG 251-300= 6 units if eating; 3 units if not eating/HS BG 301-351= 7 units if eating; 4 units if not eating/HS BG >351= call provider for orders Fenofibrate (Fenofibrate Nanocrystallized) 48 Mg Tablet 48 Mg PO QHS Protonix (Pantoprazole Sodium) 40 Mg Tablet.dr 40 Mg PO DAILYAC Fluvoxamine Maleate 100 Mg Tablet 100 Mg PO HS Seroquel (Quetiapine Fumarate) 25 Mg Tablet 25 Mg PO BID Nystop (Nystatin) 60 Gm Powder 1 Porsche TP BID Lisinopril 5 Mg Tablet 5 Mg PO DAILY Nystop (Nystatin) 60 Gm Powder 1 Porsche TP PRN TID PRN Trazodone Hcl 50 Mg Tablet 50 Mg PO TIDWMEALS Clonazepam 0.5 Mg Tablet 0.5 Mg PO BID@1200,2100 Anusol-Hc (Hydrocortisone Acetate) 25 Mg Supp.rect 25 Mg RC PRN DAILY PRN Probiotic (Lactobacillus Acidophilus) 1 Each Capsule 1 Cap PO BID Levothyroxine Sodium 25 Mcg Tablet 25 Mcg PO DAILY06 Vitamin D3 (Cholecalciferol (Vitamin D3)) 50,000 Unit Capsule 50,000 Unit PO QMONTH Administer on the 15th of every Month I have reviewed the current psychotropics carefully including drug interactions. Risk benefit ratio favors no change other than as noted in my dictated progress note. Diagnosis: Problems: (1) Intellectual disability (2) Anxiety (3) Dementia (4) Impulse control disorder (5) Impulse control disorder (6) Obsessive compulsive disorder (7) Medical clearance for psychiatric admission (8) IMPULSE DISORDER, UNSPECIFIED (9) Dementia (10) DMII (diabetes mellitus, type 2) IDA LAINEZ MD May 20, 2018 21:17
--- NOTE | 2018-05-20 22:39 | PN ---
DATE: 05/19/2018 This late entry 05/19/2018 covers elements not covered in my initial note. SUBJECTIVE: I met with the patient in the evening. The patient slept 7 hours previous evening. She has had a more difficult day on 05/19/2018 as compared to 05/18/2018. Per nursing report, she has been yelling all day, anxious, obsessive. REVIEW OF SYSTEMS: Ambulation impaired with walker. No CV, , pulmonary, eye, ENT system symptoms on review. MENTAL STATUS EXAM: Oriented to herself and situation. Speech is coherent, still somewhat pressured. Abstraction fair, computation impaired, language function intact, attention span short. Mood and affect remains labile. Obsessive better than before at times. LABORATORY DATA: Reviewed. IMPRESSION: Unchanged from an initial note, bipolar 1 disorder, mixed obsessive-compulsive disorder, intellectual disability, impulse control disorder. PLAN: No change from a psychiatric standpoint. If behaviors persist, we may check a UA to make sure she does not have a UTI worsening mood lability. MAN Stuart LAINEZ MD DR: YO/bakari JOB#: [id number] / [id number]
--- NOTE | 2018-05-20 23:23 | PN ---
DATE: 05/18/2018 This is a late entry 05/18/2018 covers elements not covered in my initial note. SUBJECTIVE: I met with the patient in the evening. The patient slept 6-3/4 hours previous evening. She has had a better day, less anxious, less labile, compliant with medications, still somewhat obsessive. She is fixated on talking about discharge plans as I met with her. REVIEW OF SYSTEMS: Ambulation impaired with walker. No CV, , pulmonary, eye system symptoms on review. MENTAL STATUS EXAM: Oriented to herself and situation. Speech is coherent, still somewhat pressured. Abstraction fair, computation impaired, language function intact. Mood and affect showing some improved lability. LABORATORY DATA: Reviewed. IMPRESSION: 1. Bipolar 1 disorder. 2. Obsessive compulsive disorder, intellectual disability. PLAN: No change from a psychiatric standpoint, seems to be doing better on Klonopin 0.5 b.i.d., Luvox 150 at bedtime, trazodone 75 t.i.d., Trileptal 300 b.i.d., Zyprexa p.r.n. MAN Stuart LAINEZ MD DR: YO/bakari JOB#: [id number] / [id number]
[2018-05-21] MEDS: LEVOTHYROXINE 25 MCG TABLET. PO SCH (06:07)
[2018-05-21 07:00] VITALS: BP 137/93
[2018-05-21] MEDS: INSULIN LISPRO 300 UNITS/3 ML INSULN.PEN. SQ SCH ×3 (07:45→17:38)
[2018-05-21] MEDS: LACTOBACILLUS RHAMNOSUS GG 1 CAPSULE. PO SCH ×2 (07:58→21:06)
[2018-05-21] MEDS: PANTOPRAZOLE 40 MG TABLET. PO SCH (07:58)
[2018-05-21] MEDS: traZODone 50 MG TABLET. PO SCH ×3 (07:59→17:36)
[2018-05-21] MEDS: LISINOPRIL 5 MG TABLET. PO SCH (08:00)
[2018-05-21] MEDS: NYSTATIN TOPICAL POWDER 15GM BOTTLE. TP SCH ×2 (08:01→21:09)
[2018-05-21] MEDS: clonazePAM 0.5 MG TABLET PO SCH ×2 (13:04→21:06)
[2018-05-21 16:27] VITALS: BP 107/64
--- NOTE | 2018-05-21 20:46 | PDOC ---
Exam Note: Marcelo Note: Please also refer to the separate dictated note~for this date of service dictated separately.~Patient seen individually. Discussed the patient with Nursing staff reviewed the chart.~Reviewed interim history and current functioning. Reviewed vital signs,~Labs/ Radiology~and current medications noted below. Continue current treatment with the changes noted in the dictated addendum note Assessment: Vital Signs: Vital Signs Date Time Temp Pulse Resp B/P (MAP) Pulse Ox O2 Delivery O2 Flow Rate FiO2 05/21/18 16:27 98.7 72 20 107/64 (78) 96 05/20/18 06:46 Room Air I&O Intake and Output 05/21/18 06:59 Intake Total 1020 ml Balance 1020 ml Intake Oral 1020 ml # Bowel Movements 1 Labs: Laboratory Tests Test 05/21/18 07:15 05/21/18 12:14 05/21/18 17:19 05/21/18 19:12 Glucose (Fingerstick) 67 mg/dL (70-99) L 148 mg/dL (70-99) H 174 mg/dL (70-99) H 185 mg/dL (70-99) H Current Medications: Meds: Current Medications Acetaminophen (Tylenol) 650 mg PRN Q6HRS PRN PO PAIN / TEMP; Start 05/04/18 at 17:30 Multi-Ingredient Ointment (Analgesic [place]) 1 porsche PRN QID PRN TP MUSCLE PAIN; Start 05/04/18 at 17:30 Al Hydroxide/Mg Hydroxide (Mylanta Plus Xs) 15 ml PRN AFTMEALHC PRN PO DYSPEPSIA; Start 05/04/18 at 17:30 Magnesium Hydroxide (Milk Of Magnesia) 2,400 mg PRN QHS PRN PO CONSTIPATION; Start 05/04/18 at 17:30 Vitamin D (Vitamin D3) 50,000 unit QMONTH PO ; Start 06/03/18 at 09:00 Insulin Human Lispro (HumaLOG) 0-7 TIDWMEALS SQ ; Start 05/05/18 at 08:00; Stop 05/05/18 at 08:00; Status DC Nystatin (Nystop) 1 porsche BID TP Last administered on 05/21/18at 08:01; Start 05/04 at 21:00 Nystatin (Nystop) 1 porsche PRN TID PRN TP RASH; Start 05/04/18 at 18:00 Fenofibrate (Tricor) 48 mg QHS PO Last administered on 05/20/18at 20:50; Start at 21:00 Hydrocortisone (Proctosol-Hc) 1 porsche PRN BID PRN RC BURNING OR BLOOD IN RECTUM; Start 05/04/18 at 19:30 Lactobacillus Rhamnosus (Culturelle) 1 cap BID PO Last administered on at 07:58; Start 05/04/18 at 21:00 Levothyroxine Sodium (Synthroid) 25 mcg DAILY06 PO Last administered on 06:07; Start 05/05/18 at 06:00 Lisinopril (Prinivil) 5 mg DAILY PO Last administered on 05/21/18at 08:00; Start 05/05/18 at 09:00 Pantoprazole Sodium (Protonix) 40 mg DAILYAC PO Last administered on 05/21/18at 07:58; Start 05/05/18 at 07:30 Clonazepam (KlonoPIN) 0.5 mg BID@1200,2100 PO Last administered on 05/21/18at 13: 04; Start 05/04/18 at 21:00 Fluvoxamine Maleate (Luvox) 100 mg QHS PO Last administered on 05/05/18at 20:07 ; Start 05/04/18 at 21:00; Stop 05/06/18 at 18:15; Status DC Quetiapine Fumarate (SEROquel) 25 mg BID PO Last administered on 05/05/18at 20: 07; Start 05/04/18 at 21:00; Stop 05/05/18 at 21:01; Status DC Trazodone HCl (Desyrel) 50 mg TIDWMEALS PO Last administered on 05/07/18at 17:52 ; Start 05/04/18 at 19:30; Stop 05/07/18 at 18:34; Status DC Insulin Human Lispro (HumaLOG) 0-7 UNITS TIDWMEALS SQ Last administered on 05/10at 09:37; Start 05/05/18 at 08:00; Stop 05/10/18 at 18:43; Status DC Insulin Human Lispro (HumaLOG) 10 units DAILY SQ Last administered on at 09:00; Start 05/06/18 at 09:00; Stop 05/14/18 at 14:30; Status DC Insulin Human Lispro (HumaLOG) 25 units NOON SQ Last administered on 05/13/18at 12:00; Start 05/05/18 at 12:00; Stop 05/14/18 at 14:30; Status DC Insulin Human Lispro (HumaLOG) 15 units 1700 SQ Last administered on 05/13/18at 17:00; Start 05/05/18 at 17:00; Stop 05/14/18 at 14:30; Status DC Insulin Glargine (Lantus) 50 units QHS SQ Last administered on 05/20/18at 20:52; Start 05/05/18 at 21:00 Fluvoxamine Maleate (Luvox) 125 mg QHS PO Last administered on 05/08/18at 20:40 ; Start 05/06/18 at 21:00; Stop 05/08/18 at 20:50; Status DC Fluvoxamine Maleate (Luvox) 25 mg QHS PO Last administered on 05/07/18at 21:01; Start 05/06/18 at 21:00; Stop 05/08/18 at 19:26; Status DC Trazodone HCl (Desyrel) 75 mg DAILY@0900 PO Last administered on 05/21/18at 07:59 ; Start 05/08/18 at 09:00 Trazodone HCl (Desyrel) 50 mg BID@1300,1700 PO Last administered on 05/14/18at 12:25; Start 05/08/18 at 13:00; Stop 05/14/18 at 16:22; Status DC Fluvoxamine Maleate (Luvox) 75 mg QHS PO ; Start 05/08/18 at 21:00; Stop at 21:00; Status DC Fluvoxamine Maleate (Luvox) 150 mg HS PO Last administered on 05/20/18at 20:46; Start 05/08/18 at 21:00 Oxcarbazepine (Trileptal) 150 mg 0900,1700 PO Last administered on 05/13/18at 18 :22; Start 05/09/18 at 17:00; Stop 05/13/18 at 19:18; Status DC Olanzapine (ZyPREXA ZYDIS) 2.5 mg PRN Q2HR PRN PO PSYCHOSIS Last administered on 05/21/18 17:36; Start 05/09/18 at 17:30 Oxcarbazepine (Trileptal) 300 mg 0900,1700 PO Last administered on 05/21/18at 17: 36; Start 05/14/18 at 09:00 Insulin Human Lispro (HumaLOG) 0-7 UNITS TIDWMEALS SQ Last administered on at 17:38; Start 05/14/18 at 17:00 Dextrose 12.5 gm PRN Q15MIN PRN IV SEE COMMENTS; Start 05/14/18 at 14:30 Trazodone HCl (Desyrel) 75 mg BID@1300,1700 PO Last administered on 05/21/18 17 :36; Start 05/14/18 at 17:00 Active Scripts Active Reported Humalog (Insulin Lispro) 100 Unit/1 Ml Insuln.pen 0-7 Unit SQ TIDWMEALS BG 70-150= 0 units if eating; 0 units if not eating/HS BG 151-200= 3 units if eating; 0 units if not eating/HS BG 201-250= 4 units if eating; 2 units if not eating/HS BG 251-300= 6 units if eating; 3 units if not eating/HS BG 301-351= 7 units if eating; 4 units if not eating/HS BG >351= call provider for orders Fenofibrate (Fenofibrate Nanocrystallized) 48 Mg Tablet 48 Mg PO QHS Protonix (Pantoprazole Sodium) 40 Mg Tablet.dr 40 Mg PO DAILYAC Fluvoxamine Maleate 100 Mg Tablet 100 Mg PO HS Seroquel (Quetiapine Fumarate) 25 Mg Tablet 25 Mg PO BID Nystop (Nystatin) 60 Gm Powder 1 [place]orsche TP BID Lisinopril 5 Mg Tablet 5 Mg PO DAILY Nystop (Nystatin) 60 Gm Powder 1 [place] TP PRN TID PRN Trazodone Hcl 50 Mg Tablet 50 Mg PO TIDWMEALS Clonazepam 0.5 Mg Tablet 0.5 Mg PO BID@1200,2100 Anusol-Hc (Hydrocortisone Acetate) 25 Mg Supp.rect 25 Mg RC PRN DAILY PRN Probiotic (Lactobacillus Acidophilus) 1 Each Capsule 1 Cap PO BID Levothyroxine Sodium 25 Mcg Tablet 25 Mcg PO DAILY06 Vitamin D3 (Cholecalciferol (Vitamin D3)) 50,000 Unit Capsule 50,000 Unit PO QMONTH Administer on the 15th of every Month I have reviewed the current psychotropics carefully including drug interactions. Risk benefit ratio favors no change other than as noted in my dictated progress note. Diagnosis: Problems: (1) Intellectual disability (2) Anxiety (3) Dementia (4) Impulse control disorder (5) Impulse control disorder (6) Obsessive compulsive disorder (7) Medical clearance for psychiatric admission (8) IMPULSE DISORDER, UNSPECIFIED (9) Dementia (10) DMII (diabetes mellitus, type 2) IDA LAINEZ MD May 21, 2018 20:46
[2018-05-21] MEDS: INSULIN GLARGINE 300 UNITS/3 ML INSULN.PEN. SQ SCH (21:00)
[2018-05-21] MEDS: FENOFIBRATE NANOCRYSTALLIZED 48 MG TABLET PO SCH (21:07)
--- NOTE | 2018-05-22 00:39 | PN ---
DATE: 05/20/2018 This is a late entry 05/20/2018 covers elements not covered in my initial note. SUBJECTIVE: I met with the patient in the evening. The patient has had a very difficult day, has been yelling, calling out repeatedly. UA is reflective of a possible UTI. Culture is awaited before specific treatment per Dr. Rivera, but this could well be worsening her agitation. We will have to wait until we get this before we make any other psychotropic medication changes. The patient's sister, Ricky had called clarifying all of this and nursing staff have informed that once UTI is treated, her behaviors persist, we may have to adjust psychotropics further. REVIEW OF SYSTEMS: Ambulation impaired with walker. No CV, , pulmonary, eye, ENT system symptoms on review. Reliability poor. MENTAL STATUS EXAM: Oriented to herself. Insight, judgment, recent memory is impaired. Language function intact, very obsessive, repetitive, following me around the unit, into the room of other patients when I was visiting with the other patients, unable to separate herself from me. LABORATORY DATA: Reviewed. IMPRESSION: Bipolar 1 disorder, mixed; obsessive compulsive disorder, intellectual disability. Rest unchanged. Possible urinary tract infection. PLAN: Continue psychotropics from initial note. Await UA, C and S and treat as indicated. IDA LAINEZ MD DR: YO/bakari JOB#: [id number] / [id number]
[2018-05-22] MEDS: LEVOTHYROXINE 25 MCG TABLET. PO SCH (06:00)
[2018-05-22 06:04] VITALS: BP 120/54
[2018-05-22] MEDS: PANTOPRAZOLE 40 MG TABLET. PO SCH (07:50)
[2018-05-22] MEDS: traZODone 50 MG TABLET. PO SCH ×3 (07:50→17:14)
[2018-05-22] MEDS: NYSTATIN TOPICAL POWDER 15GM BOTTLE. TP SCH ×2 (07:51→20:22)
[2018-05-22] MEDS: LISINOPRIL 5 MG TABLET. PO SCH (07:51)
[2018-05-22] MEDS: INSULIN LISPRO 300 UNITS/3 ML INSULN.PEN. SQ SCH ×3 (07:51→17:32)
[2018-05-22] MEDS: LACTOBACILLUS RHAMNOSUS GG 1 CAPSULE. PO SCH ×2 (07:51→21:00)
[2018-05-22] MEDS: clonazePAM 0.5 MG TABLET PO SCH ×2 (11:54→20:22)
[2018-05-22 16:29] VITALS: BP 110/68
[2018-05-22] MEDS: FENOFIBRATE NANOCRYSTALLIZED 48 MG TABLET PO SCH (21:00)
[2018-05-22] MEDS: INSULIN GLARGINE 300 UNITS/3 ML INSULN.PEN. SQ SCH (21:00)
--- NOTE | 2018-05-22 21:15 | PDOC ---
Exam Note: Marcelo Note: Please also refer to the separate dictated note~for this date of service dictated separately.~Patient seen individually. Discussed the patient with Nursing staff reviewed the chart.~Reviewed interim history and current functioning. Reviewed vital signs,~Labs/ Radiology~and current medications noted below. Continue current treatment with the changes noted in the dictated addendum note Assessment: Vital Signs: Vital Signs Date Time Temp Pulse Resp B/P (MAP) Pulse Ox O2 Delivery O2 Flow Rate FiO2 05/22/18 16:29 97.8 74 18 110/68 (82) 97 05/20/18 06:46 Room Air I&O Intake and Output 05/22/18 06:59 Intake Total 1200 ml Balance 1200 ml Intake Oral 1200 ml Labs: Laboratory Tests Test 05/22/18 07:22 05/22/18 12:02 05/22/18 16:17 05/22/18 19:03 Glucose (Fingerstick) 176 mg/dL (70-99) H 216 mg/dL (70-99) H 175 mg/dL (70-99) H 212 mg/dL (70-99) H Current Medications: Meds: Current Medications Acetaminophen (Tylenol) 650 mg PRN Q6HRS PRN PO PAIN / TEMP; Start 05/04/18 at 17:30 Multi-Ingredient Ointment (Analgesic [place]) 1 porsche PRN QID PRN TP MUSCLE PAIN; Start 05/04/18 at 17:30 Al Hydroxide/Mg Hydroxide (Mylanta Plus Xs) 15 ml PRN AFTMEALHC PRN PO DYSPEPSIA; Start 05/04/18 at 17:30 Magnesium Hydroxide (Milk Of Magnesia) 2,400 mg PRN QHS PRN PO CONSTIPATION; Start 05/04/18 at 17:30 Vitamin D (Vitamin D3) 50,000 unit QMONTH PO ; Start 06/03/18 at 09:00 Insulin Human Lispro (HumaLOG) 0-7 TIDWMEALS SQ ; Start 05/05/18 at 08:00; Stop 05/05/18 at 08:00; Status DC Nystatin (Nystop) 1 porsche BID TP Last administered on 05/22/18at 20:22; Start 05/04 at 21:00 Nystatin (Nystop) 1 porsche PRN TID PRN TP RASH; Start 05/04/18 at 18:00 Fenofibrate (Tricor) 48 mg QHS PO Last administered on 05/21/18at 21:07; Start at 21:00 Hydrocortisone (Proctosol-Hc) 1 porsche PRN BID PRN RC BURNING OR BLOOD IN RECTUM; Start 05/04/18 at 19:30 Lactobacillus Rhamnosus (Culturelle) 1 cap BID PO Last administered on 07:51; Start 05/04/18 at 21:00 Levothyroxine Sodium (Synthroid) 25 mcg DAILY06 PO Last administered on at 06:00; Start 05/05/18 at 06:00 Lisinopril (Prinivil) 5 mg DAILY PO Last administered on 05/22/18 07:51; Start 05/05/18 at 09:00 Pantoprazole Sodium (Protonix) 40 mg DAILYAC PO Last administered on 05/22/18at 07:50; Start 05/05/18 at 07:30 Clonazepam (KlonoPIN) 0.5 mg BID@1200,2100 PO Last administered on 05/22/18at 20: 22; Start 05/04/18 at 21:00 Fluvoxamine Maleate (Luvox) 100 mg QHS PO Last administered on 05/05/18at 20:07 ; Start 05/04/18 at 21:00; Stop 05/06/18 at 18:15; Status DC Quetiapine Fumarate (SEROquel) 25 mg BID PO Last administered on 05/05/18at 20: 07; Start 05/04/18 at 21:00; Stop 05/05/18 at 21:01; Status DC Trazodone HCl (Desyrel) 50 mg TIDWMEALS PO Last administered on 05/07/18at 17:52 ; Start 05/04/18 at 19:30; Stop 05/07/18 at 18:34; Status DC Insulin Human Lispro (HumaLOG) 0-7 UNITS TIDWMEALS SQ Last administered on 05/10at 09:37; Start 05/05/18 at 08:00; Stop 05/10/18 at 18:43; Status DC Insulin Human Lispro (HumaLOG) 10 units DAILY SQ Last administered on at 09:00; Start 05/06/18 at 09:00; Stop 05/14/18 at 14:30; Status DC Insulin Human Lispro (HumaLOG) 25 units NOON SQ Last administered on 05/13/18at 12:00; Start 05/05/18 at 12:00; Stop 05/14/18 at 14:30; Status DC Insulin Human Lispro (HumaLOG) 15 units 1700 SQ Last administered on 05/13/18at 17:00; Start 05/05/18 at 17:00; Stop 05/14/18 at 14:30; Status DC Insulin Glargine (Lantus) 50 units QHS SQ Last administered on 05/21/18at 21:00; Start 05/05/18 at 21:00 Fluvoxamine Maleate (Luvox) 125 mg QHS PO Last administered on 05/08/18at 20:40 ; Start 05/06/18 at 21:00; Stop 05/08/18 at 20:50; Status DC Fluvoxamine Maleate (Luvox) 25 mg QHS PO Last administered on 05/07/18at 21:01; Start 05/06/18 at 21:00; Stop 05/08/18 at 19:26; Status DC Trazodone HCl (Desyrel) 75 mg DAILY@0900 PO Last administered on 05/22/18at 07:50 ; Start 05/08/18 at 09:00 Trazodone HCl (Desyrel) 50 mg BID@1300,1700 PO Last administered on 05/14/18at 12:25; Start 05/08/18 at 13:00; Stop 05/14/18 at 16:22; Status DC Fluvoxamine Maleate (Luvox) 75 mg QHS PO ; Start 05/08/18 at 21:00; Stop at 21:00; Status DC Fluvoxamine Maleate (Luvox) 150 mg HS PO Last administered on 05/22/18at 20:22; Start 05/08/18 at 21:00 Oxcarbazepine (Trileptal) 150 mg 0900,1700 PO Last administered on 05/13/18at 18 :22; Start 05/09/18 at 17:00; Stop 05/13/18 at 19:18; Status DC Olanzapine (ZyPREXA ZYDIS) 2.5 mg PRN Q2HR PRN PO PSYCHOSIS Last administered on 05/21/18at 17:36; Start 05/09/18 at 17:30 Oxcarbazepine (Trileptal) 300 mg 0900,1700 PO Last administered on 05/22/18at 17: 14; Start 05/14/18 at 09:00 Insulin Human Lispro (HumaLOG) 0-7 UNITS TIDWMEALS SQ Last administered on at 12:23; Start 05/14/18 at 17:00 Dextrose 12.5 gm PRN Q15MIN PRN IV SEE COMMENTS; Start 05/14/18 at 14:30 Trazodone HCl (Desyrel) 75 mg BID@1300,1700 PO Last administered on 05/22/18at 17 :14; Start 05/14/18 at 17:00 Active Scripts Active Reported Humalog (Insulin Lispro) 100 Unit/1 Ml Insuln.pen 0-7 Unit SQ TIDWMEALS BG 70-150= 0 units if eating; 0 units if not eating/HS BG 151-200= 3 units if eating; 0 units if not eating/HS BG 201-250= 4 units if eating; 2 units if not eating/HS BG 251-300= 6 units if eating; 3 units if not eating/HS BG 301-351= 7 units if eating; 4 units if not eating/HS BG >351= call provider for orders Fenofibrate (Fenofibrate Nanocrystallized) 48 Mg Tablet 48 Mg PO QHS Protonix (Pantoprazole Sodium) 40 Mg Tablet.dr 40 Mg PO DAILYAC Fluvoxamine Maleate 100 Mg Tablet 100 Mg PO HS Seroquel (Quetiapine Fumarate) 25 Mg Tablet 25 Mg PO BID Nystop (Nystatin) 60 Gm Powder 1 Porsche TP BID Lisinopril 5 Mg Tablet 5 Mg PO DAILY Nystop (Nystatin) 60 Gm Powder 1 Porsche TP PRN TID PRN Trazodone Hcl 50 Mg Tablet 50 Mg PO TIDWMEALS Clonazepam 0.5 Mg Tablet 0.5 Mg PO BID@1200,2100 Anusol-Hc (Hydrocortisone Acetate) 25 Mg Supp.rect 25 Mg RC PRN DAILY PRN Probiotic (Lactobacillus Acidophilus) 1 Each Capsule 1 Cap PO BID Levothyroxine Sodium 25 Mcg Tablet 25 Mcg PO DAILY06 Vitamin D3 (Cholecalciferol (Vitamin D3)) 50,000 Unit Capsule 50,000 Unit PO QMONTH Administer on the 15th of every Month I have reviewed the current psychotropics carefully including drug interactions. Risk benefit ratio favors no change other than as noted in my dictated progress note. Diagnosis: Problems: (1) Intellectual disability (2) Anxiety (3) Dementia (4) Impulse control disorder (5) Impulse control disorder (6) Obsessive compulsive disorder (7) Medical clearance for psychiatric admission (8) IMPULSE DISORDER, UNSPECIFIED (9) Dementia (10) DMII (diabetes mellitus, type 2) IDA LAINEZ MD May 22, 2018 21:15
--- NOTE | 2018-05-22 22:55 | PN ---
DATE: 05/21/2018 PSYCHIATRIC PROGRESS NOTE This is a late entry, 05/21, covers elements not covered in my initial note. SUBJECTIVE: I met with the patient in the evening at length. Her urine has reflex to culture. Received Zyprexa p.r.n. at 10:15 a.m. due to her agitation, obsessiveness regarding the ____. Slept 6-3/4 hours previous evening. Also returned a call from the patient's brother, Paul. Had a lengthy discussion regarding the patient's increased agitation, obsessiveness, yelling. Much of this could be secondary to urinary tract infection that she seems to have, but the culture is awaited before she can be treated per Dr. Rivera. REVIEW OF SYSTEMS: Ambulation impaired with walker. No CV, , pulmonary, eye, ENT system symptoms on review. She is quite obsessive, repetitive, following me around the unit, yelling at times. MENTAL STATUS EXAM: Oriented to herself and situation. Speech as above. Abstraction fair, computation impaired, language function intact, attention span short. Mood and affect remains labile. LABORATORY DATA: Reviewed. IMPRESSION: 1. Bipolar 1 disorder, mixed. 2. Obsessive compulsive disorder, intellectual disability. PLAN: Continue psychotropics per initial note. Await urine C and S and treat and I feel this should significantly help her mood lability as well. MAN Stuart LAINEZ MD DR: YO/bakari JOB#: [id number] / [id number]
[2018-05-23] MEDS: LEVOTHYROXINE 25 MCG TABLET. PO SCH (06:00)
[2018-05-23 06:28] VITALS: BP 133/57
[2018-05-23] MEDS: INSULIN LISPRO 300 UNITS/3 ML INSULN.PEN. SQ SCH ×3 (08:00→16:57)
[2018-05-23] MEDS: PANTOPRAZOLE 40 MG TABLET. PO SCH (08:08)
[2018-05-23] MEDS: traZODone 50 MG TABLET. PO SCH ×3 (08:09→16:59)
[2018-05-23] MEDS: LACTOBACILLUS RHAMNOSUS GG 1 CAPSULE. PO SCH ×2 (08:09→19:58)
[2018-05-23] MEDS: NYSTATIN TOPICAL POWDER 15GM BOTTLE. TP SCH ×2 (08:10→19:59)
[2018-05-23] MEDS: LISINOPRIL 5 MG TABLET. PO SCH (08:10)
[2018-05-23] MEDS: clonazePAM 0.5 MG TABLET PO SCH ×2 (13:30→19:58)
[2018-05-23 15:51] VITALS: BP 119/69
[2018-05-23 17:32] LABS: BILIRUBIN,URINE NEG (NEG); CLARITY,URINE TURBID; COLOR,URINE YELLOW; GLUCOSE,URINE 250 mg/dL (NEG); NITRITE,URINE POS (NEG); UROBILINOGEN,URINE 1 mg/dL (0.2 mg/dL)
[2018-05-23 17:33] LABS: BACTERIA,URINE MANY /HPF (0-FEW); SQUAMOUS EPITHELIAL CELL,UR MOD /LPF; WBC,URINE 20-40 /HPF (0-4)
[2018-05-23] MEDS: FENOFIBRATE NANOCRYSTALLIZED 48 MG TABLET PO SCH (19:58)
[2018-05-23] MEDS: INSULIN GLARGINE 300 UNITS/3 ML INSULN.PEN. SQ SCH (20:12)
--- NOTE | 2018-05-23 20:34 | PDOC ---
Exam Note: Marcelo Note: Please also refer to the separate dictated note~for this date of service dictated separately.~Patient seen individually. Discussed the patient with Nursing staff reviewed the chart.~Reviewed interim history and current functioning. Reviewed vital signs,~Labs/ Radiology~and current medications noted below. Continue current treatment with the changes noted in the dictated addendum note Assessment: Vital Signs: Vital Signs Date Time Temp Pulse Resp B/P (MAP) Pulse Ox O2 Delivery O2 Flow Rate FiO2 05/23/18 15:51 97.6 70 18 119/69 (86) 97 Room Air I&O Intake and Output 05/23/18 07:00 Intake Total 960 ml Balance 960 ml Intake Oral 960 ml # Voids 1 # Bowel Movements 1 Labs: Laboratory Tests Test 05/23/18 07:15 05/23/18 11:58 05/23/18 16:33 05/23/18 16:48 Glucose (Fingerstick) 87 mg/dL (70-99) 229 mg/dL (70-99) H 150 mg/dL (70-99) H Urine Collection Type Unknown Urine Color Yellow Urine Clarity Turbid Urine pH 6.0 Urine Specific [place] 1.020 Urine Protein Neg (NEG-TRACE) Urine Glucose (UA) 250 mg/dL (NEG) Urine Ketones (Stick) Neg mg/dL (NEG) Urine Blood Neg (NEG) Urine Nitrite Pos (NEG) Urine Bilirubin Neg (NEG) Urine Urobilinogen Dipstick 1 mg/dL (0.2 mg/dL) Urine Leukocyte Esterase Small (NEG) Urine RBC 1-2 /HPF (0-2) Urine WBC 20-40 /HPF (0-4) Urine Squamous Epithelial Cells Mod /LPF Urine Bacteria Many /HPF (0-FEW) Urine Mucus Slight /LPF Test 05/23/18 19:57 Glucose (Fingerstick) 238 mg/dL (70-99) H Current Medications: Meds: Current Medications Acetaminophen (Tylenol) 650 mg PRN Q6HRS PRN PO PAIN / TEMP; Start 05/04/18 at 17:30 Multi-Ingredient Ointment (Analgesic [place]) 1 porsche PRN QID PRN TP MUSCLE PAIN; Start 05/04/18 at 17:30 Al Hydroxide/Mg Hydroxide (Mylanta Plus Xs) 15 ml PRN AFTMEALHC PRN PO DYSPEPSIA; Start 05/04/18 at 17:30 Magnesium Hydroxide (Milk Of Magnesia) 2,400 mg PRN QHS PRN PO CONSTIPATION; Start 05/04/18 at 17:30 Vitamin D (Vitamin D3) 50,000 unit QMONTH PO ; Start 06/03/18 at 09:00 Insulin Human Lispro (HumaLOG) 0-7 TIDWMEALS SQ ; Start 05/05/18 at 08:00; Stop 05/05/18 at 08:00; Status DC Nystatin (Nystop) 1 porsche BID TP Last administered on 05/23/18at 19:59; Start 05/04 at 21:00 Nystatin (Nystop) 1 porsche PRN TID PRN TP RASH; Start 05/04/18 at 18:00 Fenofibrate (Tricor) 48 mg QHS PO Last administered on 05/23/18 19:58; Start at 21:00 Hydrocortisone (Proctosol-Hc) 1 porsche PRN BID PRN RC BURNING OR BLOOD IN RECTUM; Start 05/04/18 at 19:30 Lactobacillus Rhamnosus (Culturelle) 1 cap BID PO Last administered on 19:58; Start 05/04/18 at 21:00 Levothyroxine Sodium (Synthroid) 25 mcg DAILY06 PO Last administered on 06:00; Start 05/05/18 at 06:00 Lisinopril (Prinivil) 5 mg DAILY PO Last administered on 05/23/18at 08:10; Start 05/05/18 at 09:00 Pantoprazole Sodium (Protonix) 40 mg DAILYAC PO Last administered on 05/23/18at 08:08; Start 05/05/18 at 07:30 Clonazepam (KlonoPIN) 0.5 mg BID@1200,2100 PO Last administered on 05/23/18 19: 58; Start 05/04/18 at 21:00 Fluvoxamine Maleate (Luvox) 100 mg QHS PO Last administered on 05/05/18at 20:07 ; Start 05/04/18 at 21:00; Stop 05/06/18 at 18:15; Status DC Quetiapine Fumarate (SEROquel) 25 mg BID PO Last administered on 05/05/18at 20: 07; Start 05/04/18 at 21:00; Stop 05/05/18 at 21:01; Status DC Trazodone HCl (Desyrel) 50 mg TIDWMEALS PO Last administered on 05/07/18at 17:52 ; Start 05/04/18 at 19:30; Stop 05/07/18 at 18:34; Status DC Insulin Human Lispro (HumaLOG) 0-7 UNITS TIDWMEALS SQ Last administered on 05/10at 09:37; Start 05/05/18 at 08:00; Stop 05/10/18 at 18:43; Status DC Insulin Human Lispro (HumaLOG) 10 units DAILY SQ Last administered on at 09:00; Start 05/06/18 at 09:00; Stop 05/14/18 at 14:30; Status DC Insulin Human Lispro (HumaLOG) 25 units NOON SQ Last administered on 05/13/18at 12:00; Start 05/05/18 at 12:00; Stop 05/14/18 at 14:30; Status DC Insulin Human Lispro (HumaLOG) 15 units 1700 SQ Last administered on 05/13/18at 17:00; Start 05/05/18 at 17:00; Stop 05/14/18 at 14:30; Status DC Insulin Glargine (Lantus) 50 units QHS SQ Last administered on 05/23/18at 20:12; Start 05/05/18 at 21:00 Fluvoxamine Maleate (Luvox) 125 mg QHS PO Last administered on 05/08/18at 20:40 ; Start 05/06/18 at 21:00; Stop 05/08/18 at 20:50; Status DC Fluvoxamine Maleate (Luvox) 25 mg QHS PO Last administered on 05/07/18at 21:01; Start 05/06/18 at 21:00; Stop 05/08/18 at 19:26; Status DC Trazodone HCl (Desyrel) 75 mg DAILY@0900 PO Last administered on 05/23/18at 08:09 ; Start 05/08/18 at 09:00 Trazodone HCl (Desyrel) 50 mg BID@1300,1700 PO Last administered on 05/14/18at 12:25; Start 05/08/18 at 13:00; Stop 05/14/18 at 16:22; Status DC Fluvoxamine Maleate (Luvox) 75 mg QHS PO ; Start 05/08/18 at 21:00; Stop at 21:00; Status DC Fluvoxamine Maleate (Luvox) 150 mg HS PO Last administered on 05/23/18at 19:58; Start 05/08/18 at 21:00 Oxcarbazepine (Trileptal) 150 mg 0900,1700 PO Last administered on 05/13/18at 18 :22; Start 05/09/18 at 17:00; Stop 05/13/18 at 19:18; Status DC Olanzapine (ZyPREXA ZYDIS) 2.5 mg PRN Q2HR PRN PO PSYCHOSIS Last administered on 05/21/18at 17:36; Start 05/09/18 at 17:30 Oxcarbazepine (Trileptal) 300 mg 0900,1700 PO Last administered on 05/23/18at 16: 59; Start 05/14/18 at 09:00 Insulin Human Lispro (HumaLOG) 0-7 UNITS TIDWMEALS SQ Last administered on at 13:29; Start 05/14/18 at 17:00 Dextrose 12.5 gm PRN Q15MIN PRN IV SEE COMMENTS; Start 05/14/18 at 14:30 Trazodone HCl (Desyrel) 75 mg BID@1300,1700 PO Last administered on 05/23/18at 16 :59; Start 05/14/18 at 17:00 Active Scripts Active Reported Humalog (Insulin Lispro) 100 Unit/1 Ml Insuln.pen 0-7 Unit SQ TIDWMEALS BG 70-150= 0 units if eating; 0 units if not eating/HS BG 151-200= 3 units if eating; 0 units if not eating/HS BG 201-250= 4 units if eating; 2 units if not eating/HS BG 251-300= 6 units if eating; 3 units if not eating/HS BG 301-351= 7 units if eating; 4 units if not eating/HS BG >351= call provider for orders Fenofibrate (Fenofibrate Nanocrystallized) 48 Mg Tablet 48 Mg PO QHS Protonix (Pantoprazole Sodium) 40 Mg Tablet.dr 40 Mg PO DAILYAC Fluvoxamine Maleate 100 Mg Tablet 100 Mg PO HS Seroquel (Quetiapine Fumarate) 25 Mg Tablet 25 Mg PO BID Nystop (Nystatin) 60 Gm Powder 1 [place]orsche TP BID Lisinopril 5 Mg Tablet 5 Mg PO DAILY Nystop (Nystatin) 60 Gm Powder 1 [place] TP PRN TID PRN Trazodone Hcl 50 Mg Tablet 50 Mg PO TIDWMEALS Clonazepam 0.5 Mg Tablet 0.5 Mg PO BID@1200,2100 Anusol-Hc (Hydrocortisone Acetate) 25 Mg Supp.rect 25 Mg RC PRN DAILY PRN Probiotic (Lactobacillus Acidophilus) 1 Each Capsule 1 Cap PO BID Levothyroxine Sodium 25 Mcg Tablet 25 Mcg PO DAILY06 Vitamin D3 (Cholecalciferol (Vitamin D3)) 50,000 Unit Capsule 50,000 Unit PO QMONTH Administer on the 15th of every Month I have reviewed the current psychotropics carefully including drug interactions. Risk benefit ratio favors no change other than as noted in my dictated progress note. Diagnosis: Problems: (1) Intellectual disability (2) Anxiety (3) Dementia (4) Impulse control disorder (5) Impulse control disorder (6) Obsessive compulsive disorder (7) Medical clearance for psychiatric admission (8) IMPULSE DISORDER, UNSPECIFIED (9) Dementia (10) DMII (diabetes mellitus, type 2) IDA LAINEZ MD May 23, 2018 20:34
[2018-05-24] MEDS: LEVOTHYROXINE 25 MCG TABLET. PO SCH (06:20)
[2018-05-24 06:42] VITALS: BP 116/53
[2018-05-24] MEDS: INSULIN LISPRO 300 UNITS/3 ML INSULN.PEN. SQ SCH ×3 (07:52→17:00)
[2018-05-24] MEDS: traZODone 50 MG TABLET. PO SCH ×3 (07:53→18:27)
[2018-05-24] MEDS: LACTOBACILLUS RHAMNOSUS GG 1 CAPSULE. PO SCH ×2 (07:53→19:50)
[2018-05-24] MEDS: LISINOPRIL 5 MG TABLET. PO SCH (07:53)
[2018-05-24] MEDS: PANTOPRAZOLE 40 MG TABLET. PO SCH (07:53)
[2018-05-24] MEDS: NYSTATIN TOPICAL POWDER 15GM BOTTLE. TP SCH ×2 (07:54→19:49)
[2018-05-24 07:58] LABS: BASO # 0.1 x10^3/uL (0.0-0.2); BASO % 1 % (0-3); EOS # 0.3 x10^3/uL (0.0-0.7); EOS % 4 % (0-3); HEMATOCRIT 35.3 % (36.0-47.0); HEMOGLOBIN 12.1 g/dL (12.0-15.5); LYMPH # 2.2 x10^3/uL (1.0-4.8); LYMPH % 31 % (24-48); MEAN CORPUSCULAR HEMOGLOBIN 31 pg (25-35); MEAN CORPUSCULAR HGB CONC 34 g/dL (31-37); MEAN CORPUSCULAR VOLUME 90 fL (79-100); MONO # 0.4 x10^3/uL (0.0-1.1); MONO % 6 % (0-9); NEUT # 4.1 x10^3uL (1.8-7.7); NEUT % 58 % (31-73); PLATELET COUNT 158 x10^3/uL (140-400); RED BLOOD COUNT 3.91 x10^6/uL (3.50-5.40); RED CELL DISTRIBUTION WIDTH 15.5 % (11.5-14.5); WHITE BLOOD COUNT 7.1 x10^3/uL (4.0-11.0)
[2018-05-24 08:10] LABS: ALBUMIN 3.3 g/dL (3.4-5.0); ALBUMIN/GLOBULIN RATIO 0.9 (1.0-1.7); CALCIUM 9.2 mg/dL (8.5-10.1); CREATININE 0.8 mg/dL (0.6-1.0); GFR 70.7; TOTAL BILIRUBIN 0.4 mg/dL (0.2-1.0); TOTAL PROTEIN 6.8 g/dL (6.4-8.2)
[2018-05-24] MEDS: clonazePAM 0.5 MG TABLET PO SCH ×2 (13:29→19:50)
[2018-05-24] MEDS: FENOFIBRATE NANOCRYSTALLIZED 48 MG TABLET PO SCH (19:49)
[2018-05-24] MEDS: AMOXICILLIN 250 MG CAPSULE PO SCH (20:04)
[2018-05-24] MEDS: INSULIN GLARGINE 300 UNITS/3 ML INSULN.PEN. SQ SCH (20:04)
--- NOTE | 2018-05-24 21:02 | PDOC ---
Exam Note: Marcelo Note: Please also refer to the separate dictated note~for this date of service dictated separately.~Patient seen individually. Discussed the patient with Nursing staff reviewed the chart.~Reviewed interim history and current functioning. Reviewed vital signs,~Labs/ Radiology~and current medications noted below. Continue current treatment with the changes noted in the dictated addendum note Assessment: Vital Signs: Vital Signs Date Time Temp Pulse Resp B/P (MAP) Pulse Ox O2 Delivery O2 Flow Rate FiO2 05/24/18 07:53 68 116/53 05/24/18 06:42 97.4 16 93 05/23/18 15:51 Room Air I&O Intake and Output 05/24/18 07:00 Intake Total 780 ml Balance 780 ml Intake Oral 780 ml # Voids 2 Labs: Laboratory Tests Test 05/24/18 07:08 05/24/18 07:23 05/24/18 11:45 05/24/18 16:30 Glucose (Fingerstick) 74 mg/dL (70-99) 115 mg/dL (70-99) H 211 mg/dL (70-99) H White Blood Count 7.1 x10^3/uL (4.0-11.0) Red Blood Count 3.91 x10^6/uL (3.50-5.40) Hemoglobin 12.1 g/dL (12.0-15.5) Hematocrit 35.3 % (36.0-47.0) L Mean Corpuscular Volume 90 fL (79-100) Mean Corpuscular Hemoglobin 31 pg (25-35) Mean Corpuscular Hemoglobin Concent 34 g/dL (31-37) Red Cell Distribution Width 15.5 % (11.5-14.5) H Platelet Count 158 x10^3/uL (140-400) Neutrophils (%) (Auto) 58 % (31-73) Lymphocytes (%) (Auto) 31 % (24-48) Monocytes (%) (Auto) 6 % (0-9) Eosinophils (%) (Auto) 4 % (0-3) H Basophils (%) (Auto) 1 % (0-3) Neutrophils # (Auto) 4.1 x10^3uL (1.8-7.7) Lymphocytes # (Auto) 2.2 x10^3/uL (1.0-4.8) Monocytes # (Auto) 0.4 x10^3/uL (0.0-1.1) Eosinophils # (Auto) 0.3 x10^3/uL (0.0-0.7) Basophils # (Auto) 0.1 x10^3/uL (0.0-0.2) Sodium Level 141 mmol/L (136-145) Potassium Level 4.0 mmol/L (3.5-5.1) Chloride Level 105 mmol/L (98-107) Carbon Dioxide Level 30 mmol/L (21-32) Anion Gap 6 (6-14) Blood Urea Nitrogen 16 mg/dL (7-20) Creatinine 0.8 mg/dL (0.6-1.0) Estimated GFR (Cockcroft-Gault) 70.7 BUN/Creatinine Ratio 20 (6-20) Glucose Level 74 mg/dL (70-99) Calcium Level 9.2 mg/dL (8.5-10.1) Total Bilirubin 0.4 mg/dL (0.2-1.0) Aspartate Amino Transferase (AST) 19 U/L (15-37) Alanine Aminotransferase (ALT) 24 U/L (14-59) Alkaline Phosphatase 59 U/L (46-116) Total Protein 6.8 g/dL (6.4-8.2) Albumin 3.3 g/dL (3.4-5.0) L Albumin/Globulin Ratio 0.9 (1.0-1.7) L Test 05/24/18 19:22 Glucose (Fingerstick) 229 mg/dL (70-99) H Current Medications: Meds: Current Medications Acetaminophen (Tylenol) 650 mg PRN Q6HRS PRN PO PAIN / TEMP; Start 05/04/18 at 17:30 Multi-Ingredient Ointment (Analgesic [place]) 1 porsche PRN QID PRN TP MUSCLE PAIN; Start 05/04/18 at 17:30 Al Hydroxide/Mg Hydroxide (Mylanta Plus Xs) 15 ml PRN AFTMEALHC PRN PO DYSPEPSIA; Start 05/04/18 at 17:30 Magnesium Hydroxide (Milk Of Magnesia) 2,400 mg PRN QHS PRN PO CONSTIPATION; Start 05/04/18 at 17:30 Vitamin D (Vitamin D3) 50,000 unit QMONTH PO ; Start 06/03/18 at 09:00 Insulin Human Lispro (HumaLOG) 0-7 TIDWMEALS SQ ; Start 05/05/18 at 08:00; Stop 05/05/18 at 08:00; Status DC Nystatin (Nystop) 1 porsche BID TP Last administered on 05/24/18at 19:49; Start at 21:00 Nystatin (Nystop) 1 porsche PRN TID PRN TP RASH; Start 05/04/18 at 18:00 Fenofibrate (Tricor) 48 mg QHS PO Last administered on 05/24/18 19:49; Start 05/04/18 at 21:00 Hydrocortisone (Proctosol-Hc) 1 porsche PRN BID PRN RC BURNING OR BLOOD IN RECTUM; Start 05/04/18 at 19:30 Lactobacillus Rhamnosus (Culturelle) 1 cap BID PO Last administered on 19:50; Start 05/04/18 at 21:00 Levothyroxine Sodium (Synthroid) 25 mcg DAILY06 PO Last administered on at 06:20; Start 05/05/18 at 06:00 Lisinopril (Prinivil) 5 mg DAILY PO Last administered on 05/24/18 07:53; Start 05/05/18 at 09:00 Pantoprazole Sodium (Protonix) 40 mg DAILYAC PO Last administered on 05/24/18 07:53; Start 05/05/18 at 07:30 Clonazepam (KlonoPIN) 0.5 mg BID@1200,2100 PO Last administered on 05/24/18 19 :50; Start 05/04/18 at 21:00 Fluvoxamine Maleate (Luvox) 100 mg QHS PO Last administered on 05/05/18at 20:07 ; Start 05/04/18 at 21:00; Stop 05/06/18 at 18:15; Status DC Quetiapine Fumarate (SEROquel) 25 mg BID PO Last administered on 05/05/18at 20: 07; Start 05/04/18 at 21:00; Stop 05/05/18 at 21:01; Status DC Trazodone HCl (Desyrel) 50 mg TIDWMEALS PO Last administered on 05/07/18at 17:52 ; Start 05/04/18 at 19:30; Stop 05/07/18 at 18:34; Status DC Insulin Human Lispro (HumaLOG) 0-7 UNITS TIDWMEALS SQ Last administered on 05/10at 09:37; Start 05/05/18 at 08:00; Stop 05/10/18 at 18:43; Status DC Insulin Human Lispro (HumaLOG) 10 units DAILY SQ Last administered on at 09:00; Start 05/06/18 at 09:00; Stop 05/14/18 at 14:30; Status DC Insulin Human Lispro (HumaLOG) 25 units NOON SQ Last administered on 05/13/18at 12:00; Start 05/05/18 at 12:00; Stop 05/14/18 at 14:30; Status DC Insulin Human Lispro (HumaLOG) 15 units 1700 SQ Last administered on 05/13/18at 17:00; Start 05/05/18 at 17:00; Stop 05/14/18 at 14:30; Status DC Insulin Glargine (Lantus) 50 units QHS SQ Last administered on 05/24/18at 20:04 ; Start 05/05/18 at 21:00 Fluvoxamine Maleate (Luvox) 125 mg QHS PO Last administered on 05/08/18at 20:40 ; Start 05/06/18 at 21:00; Stop 05/08/18 at 20:50; Status DC Fluvoxamine Maleate (Luvox) 25 mg QHS PO Last administered on 05/07/18at 21:01; Start 05/06/18 at 21:00; Stop 05/08/18 at 19:26; Status DC Trazodone HCl (Desyrel) 75 mg DAILY@0900 PO Last administered on 05/24/18at 07: 53; Start 05/08/18 at 09:00 Trazodone HCl (Desyrel) 50 mg BID@1300,1700 PO Last administered on 05/14/18at 12:25; Start 05/08/18 at 13:00; Stop 05/14/18 at 16:22; Status DC Fluvoxamine Maleate (Luvox) 75 mg QHS PO ; Start 05/08/18 at 21:00; Stop at 21:00; Status DC Fluvoxamine Maleate (Luvox) 150 mg HS PO Last administered on 05/24/18at 19:50; Start 05/08/18 at 21:00 Oxcarbazepine (Trileptal) 150 mg 0900,1700 PO Last administered on 05/13/18at 18 :22; Start 05/09/18 at 17:00; Stop 05/13/18 at 19:18; Status DC Olanzapine (ZyPREXA ZYDIS) 2.5 mg PRN Q2HR PRN PO PSYCHOSIS Last administered on 05/21/18at 17:36; Start 05/09/18 at 17:30 Oxcarbazepine (Trileptal) 300 mg 0900,1700 PO Last administered on 05/24/18at 18 :27; Start 05/14/18 at 09:00 Insulin Human Lispro (HumaLOG) 0-7 UNITS TIDWMEALS SQ Last administered on 05/24at 17:00; Start 05/14/18 at 17:00 Dextrose 12.5 gm PRN Q15MIN PRN IV SEE COMMENTS; Start 05/14/18 at 14:30 Trazodone HCl (Desyrel) 75 mg BID@1300,1700 PO Last administered on 05/24/18at 18:27; Start 05/14/18 at 17:00 Amoxicillin (Amoxil) 250 mg [id number] PO Last administered on 05/24/18at 20:04; Start 05/24/18 at 21:00; Stop 06/03/18 at 23:00 Active Scripts Active Reported Humalog (Insulin Lispro) 100 Unit/1 Ml Insuln.pen 0-7 Unit SQ TIDWMEALS BG 70-150= 0 units if eating; 0 units if not eating/HS BG 151-200= 3 units if eating; 0 units if not eating/HS BG 201-250= 4 units if eating; 2 units if not eating/HS BG 251-300= 6 units if eating; 3 units if not eating/HS BG 301-351= 7 units if eating; 4 units if not eating/HS BG >351= call provider for orders Fenofibrate (Fenofibrate Nanocrystallized) 48 Mg Tablet 48 Mg PO QHS Protonix (Pantoprazole Sodium) 40 Mg Tablet.dr 40 Mg PO DAILYAC Fluvoxamine Maleate 100 Mg Tablet 100 Mg PO HS Seroquel (Quetiapine Fumarate) 25 Mg Tablet 25 Mg PO BID Nystop (Nystatin) 60 Gm Powder 1 Porsche TP BID Lisinopril 5 Mg Tablet 5 Mg PO DAILY Nystop (Nystatin) 60 Gm Powder 1 Porsche TP PRN TID PRN Trazodone Hcl 50 Mg Tablet 50 Mg PO TIDWMEALS Clonazepam 0.5 Mg Tablet 0.5 Mg PO BID@1200,2100 Anusol-Hc (Hydrocortisone Acetate) 25 Mg Supp.rect 25 Mg RC PRN DAILY PRN Probiotic (Lactobacillus Acidophilus) 1 Each Capsule 1 Cap PO BID Levothyroxine Sodium 25 Mcg Tablet 25 Mcg PO DAILY06 Vitamin D3 (Cholecalciferol (Vitamin D3)) 50,000 Unit Capsule 50,000 Unit PO QMONTH Administer on the 15th of every Month I have reviewed the current psychotropics carefully including drug interactions. Risk benefit ratio favors no change other than as noted in my dictated progress note. Diagnosis: Problems: (1) Intellectual disability (2) Anxiety (3) Dementia (4) Impulse control disorder (5) Impulse control disorder (6) Obsessive compulsive disorder (7) Medical clearance for psychiatric admission (8) IMPULSE DISORDER, UNSPECIFIED (9) Dementia (10) DMII (diabetes mellitus, type 2) IDA LAINEZ MD May 24, 2018 21:02
--- NOTE | 2018-05-24 21:31 | PN ---
DATE: 05/23/2018 PSYCHIATRIC PROGRESS NOTE This late entry 05/23/2018 covers elements not covered in my initial note. SUBJECTIVE: I met with the patient in the evening and staffed at a treatment team meeting with the entire team in the morning. Lengthy discussion about the patient's progress. Urine C and S showed strep, but sensitivity is awaited, defer to Dr. Rivera. She is less labile, less anxious. REVIEW OF SYSTEMS: Ambulation impaired with walker. No CV, , pulmonary, eye system symptoms on review. MENTAL STATUS EXAM: Oriented to herself and situation. Speech coherent, less pressured. Abstraction fair, computation impaired, somewhat obsessive, anxious. No suicidal or homicidal ideation. LABORATORY DATA: Reviewed. IMPRESSION: Unchanged from initial note. Bipolar 1 disorder, mixed, anxiety disorder, intellectual disability. PLAN: No change from a psychiatric standpoint until urine C and S awaited. MAN Stuart LAINEZ MD DR: YO/bakari JOB#: [id number] / [id number]
--- NOTE | 2018-05-24 22:05 | PN ---
DATE: 05/22/2018 This is a late entry, 05/22/2018, covers the elements not covered in my initial note, 05/22/2018. SUBJECTIVE: I met with the patient at length in the evening and talked to the patient's brother, Paul about her progress. She has done better, more redirectable on 05/22/2018. She takes medications whole, slept 5-3/4 hours. Urine has reflex to culture, result awaited, which could be worsening her agitation. REVIEW OF SYSTEMS: Ambulation impaired with walker. No CV, , pulmonary, eye, ENT system symptoms on review. Reliability poor. MENTAL STATUS EXAM: Oriented to herself and situation. Speech coherent, rapid, loud at times, less so than before. Abstraction fair. Computation impaired. Intellectual functioning consistent with her intellectual disability. LABORATORY DATA: Reviewed. IMPRESSION: Bipolar 1 disorder, mixed. Intellectual disability, obsessive compulsive disorder, rest unchanged. PLAN: No change from initial note, await urine culture and sensitivity and treat as indicated. MAN Stuart LAINEZ MD DR: YO/bakari JOB#: [id number] / [id number]
[2018-05-25 00:48] VITALS: BP 119/75
[2018-05-25] MEDS: LEVOTHYROXINE 25 MCG TABLET. PO SCH (05:29)
[2018-05-25 06:54] VITALS: BP 129/65
[2018-05-25] MEDS: INSULIN LISPRO 300 UNITS/3 ML INSULN.PEN. SQ SCH ×3 (08:00→17:00)
[2018-05-25] MEDS: LACTOBACILLUS RHAMNOSUS GG 1 CAPSULE. PO SCH ×2 (08:22→19:47)
[2018-05-25] MEDS: AMOXICILLIN 250 MG CAPSULE PO SCH ×3 (08:22→19:47)
[2018-05-25] MEDS: traZODone 50 MG TABLET. PO SCH ×3 (08:22→18:45)
[2018-05-25] MEDS: PANTOPRAZOLE 40 MG TABLET. PO SCH (08:23)
[2018-05-25] MEDS: LISINOPRIL 5 MG TABLET. PO SCH (08:23)
[2018-05-25] MEDS: NYSTATIN TOPICAL POWDER 15GM BOTTLE. TP SCH ×2 (08:23→19:46)
[2018-05-25] MEDS: clonazePAM 0.5 MG TABLET PO SCH ×2 (13:04→19:47)
[2018-05-25 16:58] VITALS: BP 109/52
[2018-05-25] MEDS: FENOFIBRATE NANOCRYSTALLIZED 48 MG TABLET PO SCH (19:50)
[2018-05-25] MEDS: INSULIN GLARGINE 300 UNITS/3 ML INSULN.PEN. SQ SCH (23:10)
--- NOTE | 2018-05-25 23:16 | PDOC ---
Exam Note: Marcelo Note: Please also refer to the separate dictated note~for this date of service dictated separately.~Patient seen individually. Discussed the patient with Nursing staff reviewed the chart.~Reviewed interim history and current functioning. Reviewed vital signs,~Labs/ Radiology~and current medications noted below. Continue current treatment with the changes noted in the dictated addendum note Assessment: Vital Signs: Vital Signs Date Time Temp Pulse Resp B/P (MAP) Pulse Ox O2 Delivery O2 Flow Rate FiO2 05/25/18 16:58 97.9 75 20 109/52 (71) 97 05/23/18 15:51 Room Air I&O Intake and Output 05/25/18 07:00 Intake Total 1080 ml Balance 1080 ml Intake Oral 1080 ml Labs: Laboratory Tests Test 05/25/18 07:38 05/25/18 11:50 05/25/18 17:04 05/25/18 19:01 Glucose (Fingerstick) 88 mg/dL (70-99) 230 mg/dL (70-99) H 215 mg/dL (70-99) H 268 mg/dL (70-99) H Current Medications: Meds: Current Medications Acetaminophen (Tylenol) 650 mg PRN Q6HRS PRN PO PAIN / TEMP; Start 05/04/18 at 17:30 Multi-Ingredient Ointment (Analgesic [place]) 1 porsche PRN QID PRN TP MUSCLE PAIN; Start 05/04/18 at 17:30 Al Hydroxide/Mg Hydroxide (Mylanta Plus Xs) 15 ml PRN AFTMEALHC PRN PO DYSPEPSIA; Start 05/04/18 at 17:30 Magnesium Hydroxide (Milk Of Magnesia) 2,400 mg PRN QHS PRN PO CONSTIPATION; Start 05/04/18 at 17:30 Vitamin D (Vitamin D3) 50,000 unit QMONTH PO ; Start 06/03/18 at 09:00 Insulin Human Lispro (HumaLOG) 0-7 TIDWMEALS SQ ; Start 05/05/18 at 08:00; Stop 05/05/18 at 08:00; Status DC Nystatin (Nystop) 1 porsche BID TP Last administered on 05/25/18at 19:46; Start at 21:00 Nystatin (Nystop) 1 porsche PRN TID PRN TP RASH; Start 05/04/18 at 18:00 Fenofibrate (Tricor) 48 mg QHS PO Last administered on 05/25/18at 19:50; Start 05/04/18 at 21:00 Hydrocortisone (Proctosol-Hc) 1 porsche PRN BID PRN RC BURNING OR BLOOD IN RECTUM; Start 05/04/18 at 19:30 Lactobacillus Rhamnosus (Culturelle) 1 cap BID PO Last administered on at 19:47; Start 05/04/18 at 21:00 Levothyroxine Sodium (Synthroid) 25 mcg DAILY06 PO Last administered on at 05:29; Start 05/05/18 at 06:00 Lisinopril (Prinivil) 5 mg DAILY PO Last administered on 05/25/18 08:23; Start 05/05/18 at 09:00 Pantoprazole Sodium (Protonix) 40 mg DAILYAC PO Last administered on 05/25/18at 08:23; Start 05/05/18 at 07:30 Clonazepam (KlonoPIN) 0.5 mg BID@1200,2100 PO Last administered on 05/25/18at 19 :47; Start 05/04/18 at 21:00 Fluvoxamine Maleate (Luvox) 100 mg QHS PO Last administered on 05/05/18at 20:07 ; Start 05/04/18 at 21:00; Stop 05/06/18 at 18:15; Status DC Quetiapine Fumarate (SEROquel) 25 mg BID PO Last administered on 05/05/18at 20: 07; Start 05/04/18 at 21:00; Stop 05/05/18 at 21:01; Status DC Trazodone HCl (Desyrel) 50 mg TIDWMEALS PO Last administered on 05/07/18at 17:52 ; Start 05/04/18 at 19:30; Stop 05/07/18 at 18:34; Status DC Insulin Human Lispro (HumaLOG) 0-7 UNITS TIDWMEALS SQ Last administered on 05/10at 09:37; Start 05/05/18 at 08:00; Stop 05/10/18 at 18:43; Status DC Insulin Human Lispro (HumaLOG) 10 units DAILY SQ Last administered on at 09:00; Start 05/06/18 at 09:00; Stop 05/14/18 at 14:30; Status DC Insulin Human Lispro (HumaLOG) 25 units NOON SQ Last administered on 05/13/18at 12:00; Start 05/05/18 at 12:00; Stop 05/14/18 at 14:30; Status DC Insulin Human Lispro (HumaLOG) 15 units 1700 SQ Last administered on 05/13/18at 17:00; Start 05/05/18 at 17:00; Stop 05/14/18 at 14:30; Status DC Insulin Glargine (Lantus) 50 units QHS SQ Last administered on 05/25/18at 23:10 ; Start 05/05/18 at 21:00 Fluvoxamine Maleate (Luvox) 125 mg QHS PO Last administered on 05/08/18at 20:40 ; Start 05/06/18 at 21:00; Stop 05/08/18 at 20:50; Status DC Fluvoxamine Maleate (Luvox) 25 mg QHS PO Last administered on 05/07/18at 21:01; Start 05/06/18 at 21:00; Stop 05/08/18 at 19:26; Status DC Trazodone HCl (Desyrel) 75 mg DAILY@0900 PO Last administered on 05/25/18at 08: 22; Start 05/08/18 at 09:00 Trazodone HCl (Desyrel) 50 mg BID@1300,1700 PO Last administered on 05/14/18at 12:25; Start 05/08/18 at 13:00; Stop 05/14/18 at 16:22; Status DC Fluvoxamine Maleate (Luvox) 75 mg QHS PO ; Start 05/08/18 at 21:00; Stop at 21:00; Status DC Fluvoxamine Maleate (Luvox) 150 mg HS PO Last administered on 05/25/18at 19:47; Start 05/08/18 at 21:00 Oxcarbazepine (Trileptal) 150 mg 0900,1700 PO Last administered on 05/13/18at 18 :22; Start 05/09/18 at 17:00; Stop 05/13/18 at 19:18; Status DC Olanzapine (ZyPREXA ZYDIS) 2.5 mg PRN Q2HR PRN PO PSYCHOSIS Last administered on 05/21/18at 17:36; Start 05/09/18 at 17:30 Oxcarbazepine (Trileptal) 300 mg 0900,1700 PO Last administered on 05/25/18at 18 :45; Start 05/14/18 at 09:00 Insulin Human Lispro (HumaLOG) 0-7 UNITS TIDWMEALS SQ Last administered on 05/25at 17:00; Start 05/14/18 at 17:00 Dextrose 12.5 gm PRN Q15MIN PRN IV SEE COMMENTS; Start 05/14/18 at 14:30 Trazodone HCl (Desyrel) 75 mg BID@1300,1700 PO Last administered on 05/25/18at 18:45; Start 05/14/18 at 17:00 Amoxicillin (Amoxil) 250 mg [id number] PO Last administered on 05/25/18at 19:47; Start 05/24/18 at 21:00; Stop 06/03/18 at 23:00 Active Scripts Active Reported Humalog (Insulin Lispro) 100 Unit/1 Ml Insuln.pen 0-7 Unit SQ TIDWMEALS BG 70-150= 0 units if eating; 0 units if not eating/HS BG 151-200= 3 units if eating; 0 units if not eating/HS BG 201-250= 4 units if eating; 2 units if not eating/HS BG 251-300= 6 units if eating; 3 units if not eating/HS BG 301-351= 7 units if eating; 4 units if not eating/HS BG >351= call provider for orders Fenofibrate (Fenofibrate Nanocrystallized) 48 Mg Tablet 48 Mg PO QHS Protonix (Pantoprazole Sodium) 40 Mg Tablet.dr 40 Mg PO DAILYAC Fluvoxamine Maleate 100 Mg Tablet 100 Mg PO HS Seroquel (Quetiapine Fumarate) 25 Mg Tablet 25 Mg PO BID Nystop (Nystatin) 60 Gm Powder 1 Porsche TP BID Lisinopril 5 Mg Tablet 5 Mg PO DAILY Nystop (Nystatin) 60 Gm Powder 1 Porsche TP PRN TID PRN Trazodone Hcl 50 Mg Tablet 50 Mg PO TIDWMEALS Clonazepam 0.5 Mg Tablet 0.5 Mg PO BID@1200,2100 Anusol-Hc (Hydrocortisone Acetate) 25 Mg Supp.rect 25 Mg RC PRN DAILY PRN Probiotic (Lactobacillus Acidophilus) 1 Each Capsule 1 Cap PO BID Levothyroxine Sodium 25 Mcg Tablet 25 Mcg PO DAILY06 Vitamin D3 (Cholecalciferol (Vitamin D3)) 50,000 Unit Capsule 50,000 Unit PO QMONTH Administer on the 15th of every Month I have reviewed the current psychotropics carefully including drug interactions. Risk benefit ratio favors no change other than as noted in my dictated progress note. Diagnosis: Problems: (1) Intellectual disability (2) Anxiety (3) Dementia (4) Impulse control disorder (5) Impulse control disorder (6) Obsessive compulsive disorder (7) Medical clearance for psychiatric admission (8) IMPULSE DISORDER, UNSPECIFIED (9) Dementia (10) DMII (diabetes mellitus, type 2) IDA LAINEZ MD May 25, 2018 23:16
--- NOTE | 2018-05-25 23:41 | PN ---
DATE: 05/11/2018 SUBJECTIVE: The patient denies any new medical or neurological complaints. She continues to have mild tremor of the hands. She denies headaches, visual disturbances, nausea, vomiting, chest pain, shortness of breath or palpitations. OBJECTIVE: GENERAL: Obese white female, not in acute distress. She weighs 224. VITAL SIGNS: Blood pressure 106/66, respiratory rate is 18, pulse is 72 and regular, temperature is 97.3, oxygen saturation 99% on room air. HEENT: Normocephalic, atraumatic, otherwise, unremarkable. NECK: Supple. Negative for carotid bruit, lymphadenopathy or thyromegaly. LUNGS: Clear to A and P. CARDIOVASCULAR: Regular rate and rhythm. Normal S1, S2. ABDOMEN: Soft. Bowel sounds positive. EXTREMITIES: Negative for cyanosis, clubbing or pitting edema. NEUROLOGICAL EXAM: Mental Status: The patient is alert and oriented to herself. She knows she is in the hospital. Speech is fluent. There is no language dysfunction. Memory, judgment and abstract thinking are fair. The patient denies hallucination or delusion. Cranial nerves are intact. MOTOR EXAMINATION: Mild resting tremor of the upper extremities with more postural and kinetic tremors. The tone is normal. The strength is 5/5 throughout. Sensory examination revealed normal pinprick and light touch senses throughout. Deep tendon reflexes were asymmetric and hypoactive with absent Achilles responses. Gait: The patient uses a walker without assistance. LABORATORY DATA: CBC revealed white blood cells of 9.4 thousand, hemoglobin 12.3, hematocrit 36.1, platelet count 138,000. IMPRESSION: 1. Intermittent resting and more postural and kinetic tremors of the upper extremities of a mild severity. 2. Multiple medical problems include diabetes mellitus, on insulin, hypertension, hyperlipidemia, gastroesophageal reflux disease and hypothyroidism. 3. Multiple psychiatric problems include anxiety, obsessive compulsive disorders, bipolar disorders and early dementia. RECOMMENDATIONS: Continue with current medical and psychiatric care. In case of worsening of the tremor, we will start the patient on primidone. M Manny ESPINOZA MD DR: MY/bakari JOB#: [id number] / [id number]
--- NOTE | 2018-05-26 00:25 | PN ---
DATE: 05/14/2018 SUBJECTIVE: The patient continues to complain of intermittent tremor of the hands. She denies headaches, visual disturbances, nausea, vomiting, chest pain, shortness of breath or palpitation. OBJECTIVE: GENERAL: Obese female, not in acute distress. VITAL SIGNS: Blood pressure is 102/67, respiratory rate 18, pulse is 69, temperature 98, oxygen saturation 95% on room air. HEENT: Normocephalic, atraumatic, otherwise unremarkable. NECK: Supple. Negative for carotid bruit, lymphadenopathy or thyromegaly. LUNGS: Clear to A and P. CARDIOVASCULAR: Regular rate rhythm, normal S1, S2. ABDOMEN: Soft. Bowel sounds positive. EXTREMITIES: Negative for cyanosis, clubbing or pitting edema. NEUROLOGICAL EXAM: Mental Status: The patient is alert and oriented to herself and place. Speech is fluent. There is no language dysfunction. Memory, judgment, and abstract thinking are fair. The patient denies hallucination or delusion. Cranial nerves are intact. Motor Examination: No focal muscle bulk was seen. The tone is normal. The strength is 4/5 throughout. The patient had mild resting but more postural and kinetic tremors of both upper extremities. Sensory examination revealed normal pinprick, light touch senses throughout. Deep tendon reflexes are symmetric and hypoactive with absent Achilles responses. Gait: The patient uses a walker for ambulation. IMPRESSION: 1. Tremor of the upper extremities, probably induced by anxiety. 2. Multiple psychiatric problems including depressions, anxiety, obsessive-compulsive disorder. 3. Multiple medical problems including hypertension, hyperlipidemia, diabetes mellitus, on insulin, hypothyroidism and gastroesophageal reflux disease. RECOMMENDATIONS: 1. Continue with current with medical and psychiatric care. 2. Physical therapy as tolerated. M Manny ESPINOZA MD DR: MY/bakari JOB#: [id number] / [id number]
[2018-05-26] MEDS: LEVOTHYROXINE 25 MCG TABLET. PO SCH (06:29)
[2018-05-26 07:59] VITALS: BP 109/57
[2018-05-26] MEDS: INSULIN LISPRO 300 UNITS/3 ML INSULN.PEN. SQ SCH ×3 (08:00→17:00)
[2018-05-26] MEDS: AMOXICILLIN 250 MG CAPSULE PO SCH ×3 (08:20→20:48)
[2018-05-26] MEDS: traZODone 50 MG TABLET. PO SCH ×3 (08:20→18:21)
[2018-05-26] MEDS: PANTOPRAZOLE 40 MG TABLET. PO SCH (08:20)
[2018-05-26] MEDS: LACTOBACILLUS RHAMNOSUS GG 1 CAPSULE. PO SCH ×2 (08:21→20:48)
[2018-05-26] MEDS: NYSTATIN TOPICAL POWDER 15GM BOTTLE. TP SCH ×2 (08:21→20:51)
[2018-05-26] MEDS: LISINOPRIL 5 MG TABLET. PO SCH (08:21)
[2018-05-26] MEDS: clonazePAM 0.5 MG TABLET PO SCH ×2 (12:58→20:48)
[2018-05-26 16:13] VITALS: BP 106/54
--- NOTE | 2018-05-26 20:18 | PDOC ---
Exam Note: Marcelo Note: Please also refer to the separate dictated note~for this date of service dictated separately.~Patient seen individually. Discussed the patient with Nursing staff reviewed the chart.~Reviewed interim history and current functioning. Reviewed vital signs,~Labs/ Radiology~and current medications noted below. Continue current treatment with the changes noted in the dictated addendum note Assessment: Vital Signs: Vital Signs Date Time Temp Pulse Resp B/P (MAP) Pulse Ox O2 Delivery O2 Flow Rate FiO2 05/26/18 16:13 97.1 69 20 106/54 (71) 98 05/23/18 15:51 Room Air I&O Intake and Output 05/26/18 06:59 Intake Total 840 ml Balance 840 ml Intake Oral 840 ml # Bowel Movements 1 Labs: Laboratory Tests Test 05/26/18 07:29 05/26/18 12:15 Glucose (Fingerstick) 112 mg/dL (70-99) H 168 mg/dL (70-99) H Current Medications: Meds: Current Medications Acetaminophen (Tylenol) 650 mg PRN Q6HRS PRN PO PAIN / TEMP; Start 05/04/18 at 17:30 Multi-Ingredient Ointment (Analgesic [place]) 1 porsche PRN QID PRN TP MUSCLE PAIN; Start 05/04/18 at 17:30 Al Hydroxide/Mg Hydroxide (Mylanta Plus Xs) 15 ml PRN AFTMEALHC PRN PO DYSPEPSIA; Start 05/04/18 at 17:30 Magnesium Hydroxide (Milk Of Magnesia) 2,400 mg PRN QHS PRN PO CONSTIPATION; Start 05/04/18 at 17:30 Vitamin D (Vitamin D3) 50,000 unit QMONTH PO ; Start 06/03/18 at 09:00 Insulin Human Lispro (HumaLOG) 0-7 TIDWMEALS SQ ; Start 05/05/18 at 08:00; Stop 05/05/18 at 08:00; Status DC Nystatin (Nystop) 1 porsche BID TP Last administered on 05/26/18at 08:21; Start at 21:00 Nystatin (Nystop) 1 porsche PRN TID PRN TP RASH; Start 05/04/18 at 18:00 Fenofibrate (Tricor) 48 mg QHS PO Last administered on 05/25/18at 19:50; Start 05/04/18 at 21:00 Hydrocortisone (Proctosol-Hc) 1 porsche PRN BID PRN RC BURNING OR BLOOD IN RECTUM; Start 05/04/18 at 19:30 Lactobacillus Rhamnosus (Culturelle) 1 cap BID PO Last administered on at 08:21; Start 05/04/18 at 21:00 Levothyroxine Sodium (Synthroid) 25 mcg DAILY06 PO Last administered on at 06:29; Start 05/05/18 at 06:00 Lisinopril (Prinivil) 5 mg DAILY PO Last administered on 05/26/18at 08:21; Start 05/05/18 at 09:00 Pantoprazole Sodium (Protonix) 40 mg DAILYAC PO Last administered on 05/26/18at 08:20; Start 05/05/18 at 07:30 Clonazepam (KlonoPIN) 0.5 mg BID@1200,2100 PO Last administered on 05/26/18at 12 :58; Start 05/04/18 at 21:00 Fluvoxamine Maleate (Luvox) 100 mg QHS PO Last administered on 05/05/18at 20:07 ; Start 05/04/18 at 21:00; Stop 05/06/18 at 18:15; Status DC Quetiapine Fumarate (SEROquel) 25 mg BID PO Last administered on 05/05/18at 20: 07; Start 05/04/18 at 21:00; Stop 05/05/18 at 21:01; Status DC Trazodone HCl (Desyrel) 50 mg TIDWMEALS PO Last administered on 05/07/18at 17:52 ; Start 05/04/18 at 19:30; Stop 05/07/18 at 18:34; Status DC Insulin Human Lispro (HumaLOG) 0-7 UNITS TIDWMEALS SQ Last administered on 05/10at 09:37; Start 05/05/18 at 08:00; Stop 05/10/18 at 18:43; Status DC Insulin Human Lispro (HumaLOG) 10 units DAILY SQ Last administered on at 09:00; Start 05/06/18 at 09:00; Stop 05/14/18 at 14:30; Status DC Insulin Human Lispro (HumaLOG) 25 units NOON SQ Last administered on 05/13/18at 12:00; Start 05/05/18 at 12:00; Stop 05/14/18 at 14:30; Status DC Insulin Human Lispro (HumaLOG) 15 units 1700 SQ Last administered on 05/13/18at 17:00; Start 05/05/18 at 17:00; Stop 05/14/18 at 14:30; Status DC Insulin Glargine (Lantus) 50 units QHS SQ Last administered on 05/25/18at 23:10 ; Start 05/05/18 at 21:00 Fluvoxamine Maleate (Luvox) 125 mg QHS PO Last administered on 05/08/18at 20:40 ; Start 05/06/18 at 21:00; Stop 05/08/18 at 20:50; Status DC Fluvoxamine Maleate (Luvox) 25 mg QHS PO Last administered on 05/07/18at 21:01; Start 05/06/18 at 21:00; Stop 05/08/18 at 19:26; Status DC Trazodone HCl (Desyrel) 75 mg DAILY@0900 PO Last administered on 05/26/18at 08: 20; Start 05/08/18 at 09:00 Trazodone HCl (Desyrel) 50 mg BID@1300,1700 PO Last administered on 05/14/18at 12:25; Start 05/08/18 at 13:00; Stop 05/14/18 at 16:22; Status DC Fluvoxamine Maleate (Luvox) 75 mg QHS PO ; Start 05/08/18 at 21:00; Stop at 21:00; Status DC Fluvoxamine Maleate (Luvox) 150 mg HS PO Last administered on 05/25/18at 19:47; Start 05/08/18 at 21:00 Oxcarbazepine (Trileptal) 150 mg 0900,1700 PO Last administered on 05/13/18at 18 :22; Start 05/09/18 at 17:00; Stop 05/13/18 at 19:18; Status DC Olanzapine (ZyPREXA ZYDIS) 2.5 mg PRN Q2HR PRN PO PSYCHOSIS Last administered on 05/21/18at 17:36; Start 05/09/18 at 17:30 Oxcarbazepine (Trileptal) 300 mg 0900,1700 PO Last administered on 05/26/18at 18 :21; Start 05/14/18 at 09:00 Insulin Human Lispro (HumaLOG) 0-7 UNITS TIDWMEALS SQ Last administered on 05/26at 13:02; Start 05/14/18 at 17:00 Dextrose 12.5 gm PRN Q15MIN PRN IV SEE COMMENTS; Start 05/14/18 at 14:30 Trazodone HCl (Desyrel) 75 mg BID@1300,1700 PO Last administered on 05/26/18at 18:21; Start 05/14/18 at 17:00 Amoxicillin (Amoxil) 250 mg QFL920 PO Last administered on 05/26/18at 12:58; Start 05/24/18 at 21:00; Stop 06/03/18 at 23:00 Active Scripts Active Reported Humalog (Insulin Lispro) 100 Unit/1 Ml Insuln.pen 0-7 Unit SQ TIDWMEALS BG 70-150= 0 units if eating; 0 units if not eating/HS BG 151-200= 3 units if eating; 0 units if not eating/HS BG 201-250= 4 units if eating; 2 units if not eating/HS BG 251-300= 6 units if eating; 3 units if not eating/HS BG 301-351= 7 units if eating; 4 units if not eating/HS BG >351= call provider for orders Fenofibrate (Fenofibrate Nanocrystallized) 48 Mg Tablet 48 Mg PO QHS Protonix (Pantoprazole Sodium) 40 Mg Tablet.dr 40 Mg PO DAILYAC Fluvoxamine Maleate 100 Mg Tablet 100 Mg PO HS Seroquel (Quetiapine Fumarate) 25 Mg Tablet 25 Mg PO BID Nystop (Nystatin) 60 Gm Powder 1 Porsche TP BID Lisinopril 5 Mg Tablet 5 Mg PO DAILY Nystop (Nystatin) 60 Gm Powder 1 Porsche TP PRN TID PRN Trazodone Hcl 50 Mg Tablet 50 Mg PO TIDWMEALS Clonazepam 0.5 Mg Tablet 0.5 Mg PO BID@1200,2100 Anusol-Hc (Hydrocortisone Acetate) 25 Mg Supp.rect 25 Mg RC PRN DAILY PRN Probiotic (Lactobacillus Acidophilus) 1 Each Capsule 1 Cap PO BID Levothyroxine Sodium 25 Mcg Tablet 25 Mcg PO DAILY06 Vitamin D3 (Cholecalciferol (Vitamin D3)) 50,000 Unit Capsule 50,000 Unit PO QMONTH Administer on the 15th of every Month I have reviewed the current psychotropics carefully including drug interactions. Risk benefit ratio favors no change other than as noted in my dictated progress note. Diagnosis: Problems: (1) Intellectual disability (2) Anxiety (3) Dementia (4) Impulse control disorder (5) Impulse control disorder (6) Obsessive compulsive disorder (7) Medical clearance for psychiatric admission (8) IMPULSE DISORDER, UNSPECIFIED (9) Dementia (10) DMII (diabetes mellitus, type 2) IDA LAINEZ MD May 26, 2018 20:18
[2018-05-26] MEDS: FENOFIBRATE NANOCRYSTALLIZED 48 MG TABLET PO SCH (20:50)
[2018-05-26] MEDS: INSULIN GLARGINE 300 UNITS/3 ML INSULN.PEN. SQ SCH (20:53)
--- NOTE | 2018-05-27 00:17 | PN ---
DATE: 05/25/2018 PSYCHIATRIC PROGRESS NOTE This is a late entry 05/25/2018, covers elements not covered in my initial note. SUBJECTIVE: I met with the patient in the evening. The patient slept 6-1/2 hours previous night. She has had a very difficult day noted by nursing staff to be "terrible day." She has been drowsy in the morning, yelling most of the afternoon, labile late with feces in the middle of her bedroom floor, yelling, labile and psychotic. REVIEW OF SYSTEMS: Ambulation impaired, vague somatic symptoms. No CV, , pulmonary, eye, ENT system symptoms on review. MENTAL STATUS EXAM: Oriented to herself and situation. Speech coherent, rapid, loud at times. Abstraction fair, computation impaired, language function intact, attention span short. Mood and affect labile, very obsessive. LABORATORY DATA: Reviewed. IMPRESSION: Bipolar 1 disorder, mixed. Intellectual disability, OCD Urinary tract infection. PLAN: Carefully reviewed her current psychotropics, maintain everything for now, treat the UTI. Hopefully, this should help improve some of her mood lability. IDA LAINEZ MD DR: YO/bakari JOB#: [id number] / [id number]
--- NOTE | 2018-05-27 04:07 | PN ---
DATE: 05/24/2018 PSYCHIATRIC PROGRESS NOTE This late entry 05/24/2018 covers elements not covered in my initial note. SUBJECTIVE: Met with the patient in the evening. The patient has had a difficult day, remained anxious, labile, repetitive, obsessive about discharge plans. She has been started on Amoxil for UTI. Hopefully, this will help her moods as well. REVIEW OF SYSTEMS: Ambulation is impaired with walker. No CV, , pulmonary, eye, ENT system symptoms on review. Rest of the 14-point review of systems is negative. Reliability is poor. MENTAL STATUS EXAM: Oriented to herself and situation. Speech is coherent, rapid at times. Abstraction fair, computation impaired, language function is intact. Unable to do serial sevens or spell world backward at all. No suicidal or homicidal ideation. Quite obsessive. LABORATORY DATA: Reviewed. IMPRESSION: Bipolar 1 disorder; mixed anxiety disorder, unspecified; intellectual disability; urinary tract infection. PLAN: No change from initial note. IDA LAINEZ MD DR: YO/bakari JOB#: [id number] / [id number]
[2018-05-27] MEDS: LEVOTHYROXINE 25 MCG TABLET. PO SCH (06:25)
[2018-05-27 06:50] VITALS: BP 141/84
[2018-05-27] MEDS: INSULIN LISPRO 300 UNITS/3 ML INSULN.PEN. SQ SCH ×3 (08:00→18:04)
[2018-05-27] MEDS: LISINOPRIL 5 MG TABLET. PO SCH (08:26)
[2018-05-27] MEDS: LACTOBACILLUS RHAMNOSUS GG 1 CAPSULE. PO SCH ×2 (08:26→21:08)
[2018-05-27] MEDS: AMOXICILLIN 250 MG CAPSULE PO SCH ×3 (08:26→21:08)
[2018-05-27] MEDS: PANTOPRAZOLE 40 MG TABLET. PO SCH (08:26)
[2018-05-27] MEDS: traZODone 50 MG TABLET. PO SCH ×3 (08:27→18:03)
[2018-05-27] MEDS: NYSTATIN TOPICAL POWDER 15GM BOTTLE. TP SCH ×2 (08:27→21:15)
[2018-05-27] MEDS: clonazePAM 0.5 MG TABLET PO SCH ×2 (13:14→21:08)
[2018-05-27 16:26] VITALS: BP 117/58
[2018-05-27] MEDS: FENOFIBRATE NANOCRYSTALLIZED 48 MG TABLET PO SCH (21:08)
[2018-05-27] MEDS: INSULIN GLARGINE 300 UNITS/3 ML INSULN.PEN. SQ SCH (21:12)
--- NOTE | 2018-05-27 22:41 | PDOC ---
Exam Note: Marcelo Note: Please also refer to the separate dictated note~for this date of service dictated separately.~Patient seen individually. Discussed the patient with Nursing staff reviewed the chart.~Reviewed interim history and current functioning. Reviewed vital signs,~Labs/ Radiology~and current medications noted below. Continue current treatment with the changes noted in the dictated addendum note Assessment: Vital Signs: Vital Signs Date Time Temp Pulse Resp B/P (MAP) Pulse Ox O2 Delivery O2 Flow Rate FiO2 05/27/18 16:26 97.4 72 18 117/58 (77) 95 05/27/18 06:50 Room Air I&O Intake and Output 05/27/18 06:59 Intake Total 1160 ml Balance 1160 ml Intake Oral 1160 ml Labs: Laboratory Tests Test 05/27/18 07:28 05/27/18 11:53 05/27/18 16:21 05/27/18 19:12 Glucose (Fingerstick) 98 mg/dL (70-99) 155 mg/dL (70-99) H 189 mg/dL (70-99) H 221 mg/dL (70-99) H Current Medications: Meds: Current Medications Acetaminophen (Tylenol) 650 mg PRN Q6HRS PRN PO PAIN / TEMP; Start 05/04/18 at 17:30 Multi-Ingredient Ointment (Analgesic [place]) 1 porsche PRN QID PRN TP MUSCLE PAIN; Start 05/04/18 at 17:30 Al Hydroxide/Mg Hydroxide (Mylanta Plus Xs) 15 ml PRN AFTMEALHC PRN PO DYSPEPSIA; Start 05/04/18 at 17:30 Magnesium Hydroxide (Milk Of Magnesia) 2,400 mg PRN QHS PRN PO CONSTIPATION; Start 05/04/18 at 17:30 Vitamin D (Vitamin D3) 50,000 unit QMONTH PO ; Start 06/03/18 at 09:00 Insulin Human Lispro (HumaLOG) 0-7 TIDWMEALS SQ ; Start 05/05/18 at 08:00; Stop 05/05/18 at 08:00; Status DC Nystatin (Nystop) 1 porsche BID TP Last administered on 05/27/18at 08:27; Start at 21:00 Nystatin (Nystop) 1 porsche PRN TID PRN TP RASH; Start 05/04/18 at 18:00 Fenofibrate (Tricor) 48 mg QHS PO Last administered on 05/27/18 21:08; Start 05/04/18 at 21:00 Hydrocortisone (Proctosol-Hc) 1 porsche PRN BID PRN RC BURNING OR BLOOD IN RECTUM; Start 05/04/18 at 19:30 Lactobacillus Rhamnosus (Culturelle) 1 cap BID PO Last administered on 21:08; Start 05/04/18 at 21:00 Levothyroxine Sodium (Synthroid) 25 mcg DAILY06 PO Last administered on 06:25; Start 05/05/18 at 06:00 Lisinopril (Prinivil) 5 mg DAILY PO Last administered on 05/27/18 08:26; Start 05/05/18 at 09:00 Pantoprazole Sodium (Protonix) 40 mg DAILYAC PO Last administered on 05/27/18 08:26; Start 05/05/18 at 07:30 Clonazepam (KlonoPIN) 0.5 mg BID@1200,2100 PO Last administered on 05/27/18at 21 :08; Start 05/04/18 at 21:00 Fluvoxamine Maleate (Luvox) 100 mg QHS PO Last administered on 05/05/18at 20:07 ; Start 05/04/18 at 21:00; Stop 05/06/18 at 18:15; Status DC Quetiapine Fumarate (SEROquel) 25 mg BID PO Last administered on 05/05/18at 20: 07; Start 05/04/18 at 21:00; Stop 05/05/18 at 21:01; Status DC Trazodone HCl (Desyrel) 50 mg TIDWMEALS PO Last administered on 05/07/18at 17:52 ; Start 05/04/18 at 19:30; Stop 05/07/18 at 18:34; Status DC Insulin Human Lispro (HumaLOG) 0-7 UNITS TIDWMEALS SQ Last administered on 05/10at 09:37; Start 05/05/18 at 08:00; Stop 05/10/18 at 18:43; Status DC Insulin Human Lispro (HumaLOG) 10 units DAILY SQ Last administered on at 09:00; Start 05/06/18 at 09:00; Stop 05/14/18 at 14:30; Status DC Insulin Human Lispro (HumaLOG) 25 units NOON SQ Last administered on 05/13/18at 12:00; Start 05/05/18 at 12:00; Stop 05/14/18 at 14:30; Status DC Insulin Human Lispro (HumaLOG) 15 units 1700 SQ Last administered on 05/13/18at 17:00; Start 05/05/18 at 17:00; Stop 05/14/18 at 14:30; Status DC Insulin Glargine (Lantus) 50 units QHS SQ Last administered on 05/27/18at 21:12 ; Start 05/05/18 at 21:00 Fluvoxamine Maleate (Luvox) 125 mg QHS PO Last administered on 05/08/18at 20:40 ; Start 05/06/18 at 21:00; Stop 05/08/18 at 20:50; Status DC Fluvoxamine Maleate (Luvox) 25 mg QHS PO Last administered on 05/07/18at 21:01; Start 05/06/18 at 21:00; Stop 05/08/18 at 19:26; Status DC Trazodone HCl (Desyrel) 75 mg DAILY@0900 PO Last administered on 05/27/18at 08: 27; Start 05/08/18 at 09:00 Trazodone HCl (Desyrel) 50 mg BID@1300,1700 PO Last administered on 05/14/18at 12:25; Start 05/08/18 at 13:00; Stop 05/14/18 at 16:22; Status DC Fluvoxamine Maleate (Luvox) 75 mg QHS PO ; Start 05/08/18 at 21:00; Stop at 21:00; Status DC Fluvoxamine Maleate (Luvox) 150 mg HS PO Last administered on 05/27/18at 21:09; Start 05/08/18 at 21:00 Oxcarbazepine (Trileptal) 150 mg 0900,1700 PO Last administered on 05/13/18at 18 :22; Start 05/09/18 at 17:00; Stop 05/13/18 at 19:18; Status DC Olanzapine (ZyPREXA ZYDIS) 2.5 mg PRN Q2HR PRN PO PSYCHOSIS Last administered on 05/21/18at 17:36; Start 05/09/18 at 17:30 Oxcarbazepine (Trileptal) 300 mg 0900,1700 PO Last administered on 05/27/18at 18 :04; Start 05/14/18 at 09:00 Insulin Human Lispro (HumaLOG) 0-7 UNITS TIDWMEALS SQ Last administered on 05/27at 18:04; Start 05/14/18 at 17:00 Dextrose 12.5 gm PRN Q15MIN PRN IV SEE COMMENTS; Start 05/14/18 at 14:30 Trazodone HCl (Desyrel) 75 mg BID@1300,1700 PO Last administered on 05/27/18at 18:03; Start 05/14/18 at 17:00 Amoxicillin (Amoxil) 250 mg [id number] PO Last administered on 05/27/18at 21:08; Start 05/24/18 at 21:00; Stop 06/03/18 at 23:00 Active Scripts Active Reported Humalog (Insulin Lispro) 100 Unit/1 Ml Insuln.pen 0-7 Unit SQ TIDWMEALS BG 70-150= 0 units if eating; 0 units if not eating/HS BG 151-200= 3 units if eating; 0 units if not eating/HS BG 201-250= 4 units if eating; 2 units if not eating/HS BG 251-300= 6 units if eating; 3 units if not eating/HS BG 301-351= 7 units if eating; 4 units if not eating/HS BG >351= call provider for orders Fenofibrate (Fenofibrate Nanocrystallized) 48 Mg Tablet 48 Mg PO QHS Protonix (Pantoprazole Sodium) 40 Mg Tablet.dr 40 Mg PO DAILYAC Fluvoxamine Maleate 100 Mg Tablet 100 Mg PO HS Seroquel (Quetiapine Fumarate) 25 Mg Tablet 25 Mg PO BID Nystop (Nystatin) 60 Gm Powder 1 Porsche TP BID Lisinopril 5 Mg Tablet 5 Mg PO DAILY Nystop (Nystatin) 60 Gm Powder 1 [place]orsche TP PRN TID PRN Trazodone Hcl 50 Mg Tablet 50 Mg PO TIDWMEALS Clonazepam 0.5 Mg Tablet 0.5 Mg PO BID@1200,2100 Anusol-Hc (Hydrocortisone Acetate) 25 Mg Supp.rect 25 Mg RC PRN DAILY PRN Probiotic (Lactobacillus Acidophilus) 1 Each Capsule 1 Cap PO BID Levothyroxine Sodium 25 Mcg Tablet 25 Mcg PO DAILY06 Vitamin D3 (Cholecalciferol (Vitamin D3)) 50,000 Unit Capsule 50,000 Unit PO QMONTH Administer on the 15th of every Month I have reviewed the current psychotropics carefully including drug interactions. Risk benefit ratio favors no change other than as noted in my dictated progress note. Diagnosis: Problems: (1) Intellectual disability (2) Anxiety (3) Dementia (4) Impulse control disorder (5) Impulse control disorder (6) Obsessive compulsive disorder (7) Medical clearance for psychiatric admission (8) IMPULSE DISORDER, UNSPECIFIED (9) Dementia (10) DMII (diabetes mellitus, type 2) IDA LAINEZ MD May 27, 2018 22:41
[2018-05-28] MEDS: LEVOTHYROXINE 25 MCG TABLET. PO SCH (05:32)
[2018-05-28 06:19] VITALS: BP 115/51
[2018-05-28] MEDS: traZODone 50 MG TABLET. PO SCH ×3 (07:44→17:35)
[2018-05-28] MEDS: PANTOPRAZOLE 40 MG TABLET. PO SCH (07:47)
[2018-05-28] MEDS: LACTOBACILLUS RHAMNOSUS GG 1 CAPSULE. PO SCH ×2 (07:47→19:44)
[2018-05-28] MEDS: AMOXICILLIN 250 MG CAPSULE PO SCH ×3 (07:47→19:42)
[2018-05-28] MEDS: LISINOPRIL 5 MG TABLET. PO SCH (07:47)
[2018-05-28] MEDS: NYSTATIN TOPICAL POWDER 15GM BOTTLE. TP SCH ×2 (07:49→19:42)
[2018-05-28] MEDS: INSULIN LISPRO 300 UNITS/3 ML INSULN.PEN. SQ SCH ×3 (07:56→17:17)
[2018-05-28] MEDS: clonazePAM 0.5 MG TABLET PO SCH ×2 (12:15→19:42)
--- NOTE | 2018-05-28 13:11 | PN ---
DATE: 05/26/2018 PSYCHIATRIC PROGRESS NOTE This is a late entry, 05/26, covers elements not covered in my initial note. SUBJECTIVE: I met with the patient in the evening at some length in her room. The patient slept 5-1/4 hours. Remains anxious, agitated, loud, disruptive at times, somewhat manic. She was in the secure hallway in the morning, yelling during shower, yelling prior to supper, name calling others, grumpy per nursing report. Her sister, Dmitriy, called and later patient did better after this conversation. REVIEW OF SYSTEMS: Ambulation impaired with walker. No CV, , pulmonary, eye, ENT system symptoms on review. MENTAL STATUS EXAM: Oriented to herself and situation. Speech coherent, rapid, loud at times. Abstraction fair, computation impaired, language function intact. Mood and affect remain somewhat grandiose. LABORATORY DATA: Reviewed. IMPRESSION: Unchanged from initial note. PLAN: No change from initial note. IDA LAINEZ MD DR: YO/bakari JOB#: [id number] / [id number]
[2018-05-28 16:21] VITALS: BP 144/57
[2018-05-28] MEDS: FENOFIBRATE NANOCRYSTALLIZED 48 MG TABLET PO SCH (19:44)
[2018-05-28] MEDS: INSULIN GLARGINE 300 UNITS/3 ML INSULN.PEN. SQ SCH (19:49)
--- NOTE | 2018-05-29 01:04 | PN ---
DATE: 05/27/2018 PSYCHIATRIC PROGRESS NOTE This is a late entry, 05/27, covers elements not covered in my initial note. SUBJECTIVE: I met with the patient in the evening. The patient slept 4-1/4 hours previous night. She did well in the morning. Later in the afternoon, she was screaming, obsessive, repetitive about discharge plans. She is on Amoxil for UTI. Hopefully, this will help reduce the agitation as the UTI resolves. REVIEW OF SYSTEMS: Ambulation impaired with walker. No CV, , pulmonary, eye, ENT system symptoms on review, but has vague somatic symptoms. MENTAL STATUS EXAM: Oriented to herself and situation. Speech coherent, rapid, loud at times. Abstraction fair, computation impaired, language function intact, attention span short. Mood and affect remain somewhat labile and grandiose. LABORATORY DATA: Reviewed. IMPRESSION: Unchanged from initial note. PLAN: No change from initial note. Treat the UTI. IDA LAINEZ MD DR: YO/bakari JOB#: [id number] / [id number]
[2018-05-29 05:57] VITALS: BP 133/64
[2018-05-29] MEDS: LEVOTHYROXINE 25 MCG TABLET. PO SCH (06:13)
[2018-05-29 07:33] LABS: BASO % 1 % (0-3); EOS # 0.2 x10^3/uL (0.0-0.7); EOS % 4 % (0-3); HEMATOCRIT 33.9 % (36.0-47.0); HEMOGLOBIN 11.8 g/dL (12.0-15.5); LYMPH # 2.4 x10^3/uL (1.0-4.8); LYMPH % 37 % (24-48); MEAN CORPUSCULAR HEMOGLOBIN 31 pg (25-35); MEAN CORPUSCULAR HGB CONC 35 g/dL (31-37); MEAN CORPUSCULAR VOLUME 89 fL (79-100); MONO # 0.4 x10^3/uL (0.0-1.1); MONO % 6 % (0-9); NEUT # 3.3 x10^3uL (1.8-7.7); NEUT % 52 % (31-73); PLATELET COUNT 144 x10^3/uL (140-400); RED BLOOD COUNT 3.79 x10^6/uL (3.50-5.40); RED CELL DISTRIBUTION WIDTH 15.6 % (11.5-14.5); WHITE BLOOD COUNT 6.3 x10^3/uL (4.0-11.0)
[2018-05-29 07:37] LABS: ALBUMIN 3.1 g/dL (3.4-5.0); ALBUMIN/GLOBULIN RATIO 0.9 (1.0-1.7); CALCIUM 8.4 mg/dL (8.5-10.1); CREATININE 0.8 mg/dL (0.6-1.0); GFR 70.7; POTASSIUM 3.7 mmol/L (3.5-5.1); TOTAL BILIRUBIN 0.4 mg/dL (0.2-1.0); TOTAL PROTEIN 6.4 g/dL (6.4-8.2)
[2018-05-29] MEDS: INSULIN LISPRO 300 UNITS/3 ML INSULN.PEN. SQ SCH ×3 (08:00→17:00)
[2018-05-29] MEDS: NYSTATIN TOPICAL POWDER 15GM BOTTLE. TP SCH ×2 (09:14→21:10)
[2018-05-29] MEDS: traZODone 50 MG TABLET. PO SCH ×3 (09:15→17:54)
[2018-05-29] MEDS: LACTOBACILLUS RHAMNOSUS GG 1 CAPSULE. PO SCH ×2 (09:15→21:10)
[2018-05-29] MEDS: LISINOPRIL 5 MG TABLET. PO SCH (09:15)
[2018-05-29] MEDS: AMOXICILLIN 250 MG CAPSULE PO SCH ×2 (09:16→13:55)
[2018-05-29] MEDS: PANTOPRAZOLE 40 MG TABLET. PO SCH (09:16)
[2018-05-29] MEDS: OXcarbazepine 150 MG TABLET. PO SCH ×2 (09:18→17:55)
[2018-05-29] MEDS: clonazePAM 0.5 MG TABLET PO SCH ×2 (12:02→21:09)
[2018-05-29 16:23] VITALS: BP 126/73
[2018-05-29] MEDS: CEFPODOXIME PROXETIL 100 MG TABLET PO SCH (21:09)
[2018-05-29] MEDS: FENOFIBRATE NANOCRYSTALLIZED 48 MG TABLET PO SCH (21:13)
[2018-05-29] MEDS: INSULIN GLARGINE 300 UNITS/3 ML INSULN.PEN. SQ SCH (21:16)
--- NOTE | 2018-05-30 00:45 | PN ---
DATE: 05/28/2018 PSYCHIATRIC PROGRESS NOTE This is a late entry, 05/28, covers elements not covered in my initial note. SUBJECTIVE: I met with the patient in the evening of 05/28. The patient slept 8 hours previous evening, remains somewhat obsessive, repetitive asking about discharge plans. REVIEW OF SYSTEMS: Ambulation impaired with walker. No CV, , pulmonary, eye, ENT system symptoms on review. MENTAL STATUS EXAM: Oriented to herself and situation. Speech is coherent, a little loud at times. Abstraction fair, computation impaired, language function intact. Mood and affect remain somewhat anxious, labile, obsessive, but improved. LABORATORY DATA: Reviewed. IMPRESSION: Unchanged from initial note. PLAN: Increase Trileptal from 300 b.i.d. to 450 b.i.d. Check CBC, CMP morning of 05/29. Continue rest unchanged from initial note. MAN Stuart LAINEZ MD DR: YO/bakari JOB#: [id number] / [id number]
--- NOTE | 2018-05-30 02:57 | PDOC ---
Exam Note: Marcelo Note: Please also refer to the separate dictated note~for this date of service dictated separately.~Patient seen individually. Discussed the patient with Nursing staff reviewed the chart.~Reviewed interim history and current functioning. Reviewed vital signs,~Labs/ Radiology~and current medications noted below. Continue current treatment with the changes noted in the dictated addendum note Assessment: Vital Signs: Vital Signs Date Time Temp Pulse Resp B/P (MAP) Pulse Ox O2 Delivery O2 Flow Rate FiO2 05/29/18 16:23 98.4 69 22 126/73 (90) 98 05/28/18 16:21 Room Air I&O Intake and Output 05/30/18 07:00 Intake Total 1080 ml Balance 1080 ml Intake Oral 1080 ml # Voids 1 Labs: Laboratory Tests Test 05/29/18 07:08 05/29/18 07:17 05/29/18 11:48 05/29/18 16:51 White Blood Count 6.3 x10^3/uL (4.0-11.0) Red Blood Count 3.79 x10^6/uL (3.50-5.40) Hemoglobin 11.8 g/dL (12.0-15.5) L Hematocrit 33.9 % (36.0-47.0) L Mean Corpuscular Volume 89 fL (79-100) Mean Corpuscular Hemoglobin 31 pg (25-35) Mean Corpuscular Hemoglobin Concent 35 g/dL (31-37) Red Cell Distribution Width 15.6 % (11.5-14.5) H Platelet Count 144 x10^3/uL (140-400) Neutrophils (%) (Auto) 52 % (31-73) Lymphocytes (%) (Auto) 37 % (24-48) Monocytes (%) (Auto) 6 % (0-9) Eosinophils (%) (Auto) 4 % (0-3) H Basophils (%) (Auto) 1 % (0-3) Neutrophils # (Auto) 3.3 x10^3uL (1.8-7.7) Lymphocytes # (Auto) 2.4 x10^3/uL (1.0-4.8) Monocytes # (Auto) 0.4 x10^3/uL (0.0-1.1) Eosinophils # (Auto) 0.2 x10^3/uL (0.0-0.7) Basophils # (Auto) 0.0 x10^3/uL (0.0-0.2) Sodium Level 144 mmol/L (136-145) Potassium Level 3.7 mmol/L (3.5-5.1) Chloride Level 105 mmol/L (98-107) Carbon Dioxide Level 28 mmol/L (21-32) Anion Gap 11 (6-14) Blood Urea Nitrogen 16 mg/dL (7-20) Creatinine 0.8 mg/dL (0.6-1.0) Estimated GFR (Cockcroft-Gault) 70.7 BUN/Creatinine Ratio 20 (6-20) Glucose Level 149 mg/dL (70-99) H Calcium Level 8.4 mg/dL (8.5-10.1) L Total Bilirubin 0.4 mg/dL (0.2-1.0) Aspartate Amino Transferase (AST) 17 U/L (15-37) Alanine Aminotransferase (ALT) 22 U/L (14-59) Alkaline Phosphatase 57 U/L (46-116) Total Protein 6.4 g/dL (6.4-8.2) Albumin 3.1 g/dL (3.4-5.0) L Albumin/Globulin Ratio 0.9 (1.0-1.7) L Glucose (Fingerstick) 146 mg/dL (70-99) H 251 mg/dL (70-99) H 150 mg/dL (70-99) H Test 05/29/18 19:11 Glucose (Fingerstick) 253 mg/dL (70-99) H Current Medications: Meds: Current Medications Acetaminophen (Tylenol) 650 mg PRN Q6HRS PRN PO PAIN / TEMP; Start 05/04/18 at 17:30 Multi-Ingredient Ointment (Analgesic [place]) 1 porsche PRN QID PRN TP MUSCLE PAIN; Start 05/04/18 at 17:30 Al Hydroxide/Mg Hydroxide (Mylanta Plus Xs) 15 ml PRN AFTMEALHC PRN PO DYSPEPSIA; Start 05/04/18 at 17:30 Magnesium Hydroxide (Milk Of Magnesia) 2,400 mg PRN QHS PRN PO CONSTIPATION; Start 05/04/18 at 17:30 Vitamin D (Vitamin D3) 50,000 unit QMONTH PO ; Start 06/03/18 at 09:00 Insulin Human Lispro (HumaLOG) 0-7 TIDWMEALS SQ ; Start 05/05/18 at 08:00; Stop 05/05/18 at 08:00; Status DC Nystatin (Nystop) 1 porsche BID TP Last administered on 05/29/18at 21:10; Start at 21:00 Nystatin (Nystop) 1 porsche PRN TID PRN TP RASH; Start 05/04/18 at 18:00 Fenofibrate (Tricor) 48 mg QHS PO Last administered on 05/29/18at 21:13; Start 05/04/18 at 21:00 Hydrocortisone (Proctosol-Hc) 1 porsche PRN BID PRN RC BURNING OR BLOOD IN RECTUM; Start 05/04/18 at 19:30 Lactobacillus Rhamnosus (Culturelle) 1 cap BID PO Last administered on 21:10; Start 05/04/18 at 21:00 Levothyroxine Sodium (Synthroid) 25 mcg DAILY06 PO Last administered on at 06:13; Start 05/05/18 at 06:00 Lisinopril (Prinivil) 5 mg DAILY PO Last administered on 05/29/18 09:15; Start 05/05/18 at 09:00 Pantoprazole Sodium (Protonix) 40 mg DAILYAC PO Last administered on 05/29/18at 09:16; Start 05/05/18 at 07:30 Clonazepam (KlonoPIN) 0.5 mg BID@1200,2100 PO Last administered on 05/29/18 21 :09; Start 05/04/18 at 21:00 Fluvoxamine Maleate (Luvox) 100 mg QHS PO Last administered on 05/05/18at 20:07 ; Start 05/04/18 at 21:00; Stop 05/06/18 at 18:15; Status DC Quetiapine Fumarate (SEROquel) 25 mg BID PO Last administered on 05/05/18at 20: 07; Start 05/04/18 at 21:00; Stop 05/05/18 at 21:01; Status DC Trazodone HCl (Desyrel) 50 mg TIDWMEALS PO Last administered on 05/07/18at 17:52 ; Start 05/04/18 at 19:30; Stop 05/07/18 at 18:34; Status DC Insulin Human Lispro (HumaLOG) 0-7 UNITS TIDWMEALS SQ Last administered on 05/10at 09:37; Start 05/05/18 at 08:00; Stop 05/10/18 at 18:43; Status DC Insulin Human Lispro (HumaLOG) 10 units DAILY SQ Last administered on at 09:00; Start 05/06/18 at 09:00; Stop 05/14/18 at 14:30; Status DC Insulin Human Lispro (HumaLOG) 25 units NOON SQ Last administered on 05/13/18at 12:00; Start 05/05/18 at 12:00; Stop 05/14/18 at 14:30; Status DC Insulin Human Lispro (HumaLOG) 15 units 1700 SQ Last administered on 05/13/18at 17:00; Start 05/05/18 at 17:00; Stop 05/14/18 at 14:30; Status DC Insulin Glargine (Lantus) 50 units QHS SQ Last administered on 05/29/18at 21:16 ; Start 05/05/18 at 21:00 Fluvoxamine Maleate (Luvox) 125 mg QHS PO Last administered on 05/08/18at 20:40 ; Start 05/06/18 at 21:00; Stop 05/08/18 at 20:50; Status DC Fluvoxamine Maleate (Luvox) 25 mg QHS PO Last administered on 05/07/18at 21:01; Start 05/06/18 at 21:00; Stop 05/08/18 at 19:26; Status DC Trazodone HCl (Desyrel) 75 mg DAILY@0900 PO Last administered on 05/29/18at 09: 15; Start 05/08/18 at 09:00 Trazodone HCl (Desyrel) 50 mg BID@1300,1700 PO Last administered on 05/14/18at 12:25; Start 05/08/18 at 13:00; Stop 05/14/18 at 16:22; Status DC Fluvoxamine Maleate (Luvox) 75 mg QHS PO ; Start 05/08/18 at 21:00; Stop at 21:00; Status DC Fluvoxamine Maleate (Luvox) 150 mg HS PO Last administered on 05/29/18at 21:10; Start 05/08/18 at 21:00 Oxcarbazepine (Trileptal) 150 mg 0900,1700 PO Last administered on 05/13/18at 18 :22; Start 05/09/18 at 17:00; Stop 05/13/18 at 19:18; Status DC Olanzapine (ZyPREXA ZYDIS) 2.5 mg PRN Q2HR PRN PO PSYCHOSIS Last administered on 05/28/18at 19:44; Start 05/09/18 at 17:30 Oxcarbazepine (Trileptal) 300 mg 0900,1700 PO Last administered on 05/28/18at 17 :35; Start 05/14/18 at 09:00; Stop 05/28/18 at 18:51; Status DC Insulin Human Lispro (HumaLOG) 0-7 UNITS TIDWMEALS SQ Last administered on 05/29at 12:04; Start 05/14/18 at 17:00 Dextrose 12.5 gm PRN Q15MIN PRN IV SEE COMMENTS; Start 05/14/18 at 14:30 Trazodone HCl (Desyrel) 75 mg BID@1300,1700 PO Last administered on 05/29/18at 17:54; Start 05/14/18 at 17:00 Amoxicillin (Amoxil) 250 mg [id number] PO Last administered on 05/29/18at 13:55; Start 05/24/18 at 21:00; Stop 05/29/18 at 15:29; Status DC Oxcarbazepine (Trileptal) 450 mg 0900,1700 PO Last administered on 05/29/18at 17 :55; Start 05/29/18 at 09:00 Cefpodoxime Proxetil (Vantin) 200 mg BID PO Last administered on 05/29/18at 21: 09; Start 05/29/18 at 21:00; Stop 06/08/18 at 21:00 Active Scripts Active Reported Humalog (Insulin Lispro) 100 Unit/1 Ml Insuln.pen 0-7 Unit SQ TIDWMEALS BG 70-150= 0 units if eating; 0 units if not eating/HS BG 151-200= 3 units if eating; 0 units if not eating/HS BG 201-250= 4 units if eating; 2 units if not eating/HS BG 251-300= 6 units if eating; 3 units if not eating/HS BG 301-351= 7 units if eating; 4 units if not eating/HS BG >351= call provider for orders Fenofibrate (Fenofibrate Nanocrystallized) 48 Mg Tablet 48 Mg PO QHS Protonix (Pantoprazole Sodium) 40 Mg Tablet.dr 40 Mg PO DAILYAC Fluvoxamine Maleate 100 Mg Tablet 100 Mg PO HS Seroquel (Quetiapine Fumarate) 25 Mg Tablet 25 Mg PO BID Nystop (Nystatin) 60 Gm Powder 1 Porsche TP BID Lisinopril 5 Mg Tablet 5 Mg PO DAILY Nystop (Nystatin) 60 Gm Powder 1 Porsche TP PRN TID PRN Trazodone Hcl 50 Mg Tablet 50 Mg PO TIDWMEALS Clonazepam 0.5 Mg Tablet 0.5 Mg PO BID@1200,2100 Anusol-Hc (Hydrocortisone Acetate) 25 Mg Supp.rect 25 Mg RC PRN DAILY PRN Probiotic (Lactobacillus Acidophilus) 1 Each Capsule 1 Cap PO BID Levothyroxine Sodium 25 Mcg Tablet 25 Mcg PO DAILY06 Vitamin D3 (Cholecalciferol (Vitamin D3)) 50,000 Unit Capsule 50,000 Unit PO QMONTH Administer on the 15th of every Month I have reviewed the current psychotropics carefully including drug interactions. Risk benefit ratio favors no change other than as noted in my dictated progress note. Diagnosis: Problems: (1) Intellectual disability (2) Anxiety (3) Dementia (4) Impulse control disorder (5) Impulse control disorder (6) Obsessive compulsive disorder (7) Medical clearance for psychiatric admission (8) IMPULSE DISORDER, UNSPECIFIED (9) Dementia (10) DMII (diabetes mellitus, type 2) IDA LAINEZ MD May 30, 2018 02:57
[2018-05-30] MEDS: LEVOTHYROXINE 25 MCG TABLET. PO SCH (05:43)
[2018-05-30 06:11] VITALS: BP 106/66
[2018-05-30] MEDS: INSULIN LISPRO 300 UNITS/3 ML INSULN.PEN. SQ SCH ×3 (07:59→17:13)
[2018-05-30] MEDS: traZODone 50 MG TABLET. PO SCH ×3 (08:01→17:10)
[2018-05-30] MEDS: LISINOPRIL 5 MG TABLET. PO SCH (08:02)
[2018-05-30] MEDS: PANTOPRAZOLE 40 MG TABLET. PO SCH (08:02)
[2018-05-30] MEDS: NYSTATIN TOPICAL POWDER 15GM BOTTLE. TP SCH ×2 (08:02→20:05)
[2018-05-30] MEDS: LACTOBACILLUS RHAMNOSUS GG 1 CAPSULE. PO SCH ×2 (08:02→20:03)
[2018-05-30] MEDS: OXcarbazepine 150 MG TABLET. PO SCH ×2 (08:02→17:11)
[2018-05-30] MEDS: CEFPODOXIME PROXETIL 100 MG TABLET PO SCH ×2 (08:02→20:03)
[2018-05-30] MEDS: clonazePAM 0.5 MG TABLET PO SCH ×2 (12:16→20:05)
[2018-05-30 16:12] VITALS: BP 112/68
[2018-05-30] MEDS: FENOFIBRATE NANOCRYSTALLIZED 48 MG TABLET PO SCH (20:05)
[2018-05-30] MEDS: INSULIN GLARGINE 300 UNITS/3 ML INSULN.PEN. SQ SCH (20:07)
--- NOTE | 2018-05-30 21:01 | PDOC ---
Exam Note: Marcelo Note: Late entry for DOS May 28, 2018. Please also refer to the separate dictated note~for this date of service dictated separately.~Patient seen individually. Discussed the patient with Nursing staff reviewed the chart.~Reviewed interim history and current functioning. Reviewed vital signs,~Labs/ Radiology~and current medications noted below. Continue current treatment with the changes noted in the dictated addendum note Assessment: Vital Signs: VS - Last 72 Hours, by Label Date Time Temp Pulse Resp B/P (MAP) Pulse Ox O2 Delivery O2 Flow Rate FiO2 05/30/18 16:12 97.4 72 17 112/68 (83) 95 Room Air 05/30/18 08:02 76 106/66 05/30/18 06:11 97.0 76 20 106/66 (79) 96 05/29/18 16:23 98.4 69 22 126/73 (90) 98 05/29/18 09:15 75 133/64 05/29/18 05:57 98.7 75 18 133/64 (87) 98 05/28/18 16:21 98.2 89 17 144/57 (86) 96 Room Air 05/28/18 07:47 69 115/51 05/28/18 06:19 97.5 69 16 115/51 (72) 92 Vital Signs Date Time Temp Pulse Resp B/P (MAP) Pulse Ox O2 Delivery O2 Flow Rate FiO2 05/30/18 16:12 97.4 72 17 112/68 (83) 95 Room Air I&O Intake and Output 05/30/18 06:59 Intake Total 1080 ml Balance 1080 ml Intake Oral 1080 ml # Voids 1 Labs: Laboratory Tests Test 05/30/18 07:42 05/30/18 11:43 05/30/18 16:19 05/30/18 19:08 Glucose (Fingerstick) 82 mg/dL (70-99) 224 mg/dL (70-99) H 172 mg/dL (70-99) H 238 mg/dL (70-99) H Current Medications: Meds: Current Medications Acetaminophen (Tylenol) 650 mg PRN Q6HRS PRN PO PAIN / TEMP; Start 05/04/18 at 17:30 Multi-Ingredient Ointment (Analgesic [place]) 1 porsche PRN QID PRN TP MUSCLE PAIN; Start 05/04/18 at 17:30 Al Hydroxide/Mg Hydroxide (Mylanta Plus Xs) 15 ml PRN AFTMEALHC PRN PO DYSPEPSIA; Start 05/04/18 at 17:30 Magnesium Hydroxide (Milk Of Magnesia) 2,400 mg PRN QHS PRN PO CONSTIPATION; Start 05/04/18 at 17:30 Vitamin D (Vitamin D3) 50,000 unit QMONTH PO ; Start 06/03/18 at 09:00 Insulin Human Lispro (HumaLOG) 0-7 TIDWMEALS SQ ; Start 05/05/18 at 08:00; Stop 05/05/18 at 08:00; Status DC Nystatin (Nystop) 1 porsche BID TP Last administered on 05/30/18at 20:05; Start at 21:00 Nystatin (Nystop) 1 porsche PRN TID PRN TP RASH; Start 05/04/18 at 18:00 Fenofibrate (Tricor) 48 mg QHS PO Last administered on 05/30/18at 20:05; Start 05/04/18 at 21:00 Hydrocortisone (Proctosol-Hc) 1 porsche PRN BID PRN RC BURNING OR BLOOD IN RECTUM; Start 05/04/18 at 19:30 Lactobacillus Rhamnosus (Culturelle) 1 cap BID PO Last administered on at 20:03; Start 05/04/18 at 21:00 Levothyroxine Sodium (Synthroid) 25 mcg DAILY06 PO Last administered on at 05:43; Start 05/05/18 at 06:00 Lisinopril (Prinivil) 5 mg DAILY PO Last administered on 05/29/18at 09:15; Start 05/05/18 at 09:00 Pantoprazole Sodium (Protonix) 40 mg DAILYAC PO Last administered on 05/30/18at 08:02; Start 05/05/18 at 07:30 Clonazepam (KlonoPIN) 0.5 mg BID@1200,2100 PO Last administered on 05/30/18at 20 :05; Start 05/04/18 at 21:00 Fluvoxamine Maleate (Luvox) 100 mg QHS PO Last administered on 05/05/18at 20:07 ; Start 05/04/18 at 21:00; Stop 05/06/18 at 18:15; Status DC Quetiapine Fumarate (SEROquel) 25 mg BID PO Last administered on 05/05/18at 20: 07; Start 05/04/18 at 21:00; Stop 05/05/18 at 21:01; Status DC Trazodone HCl (Desyrel) 50 mg TIDWMEALS PO Last administered on 05/07/18at 17:52 ; Start 05/04/18 at 19:30; Stop 05/07/18 at 18:34; Status DC Insulin Human Lispro (HumaLOG) 0-7 UNITS TIDWMEALS SQ Last administered on 05/10at 09:37; Start 05/05/18 at 08:00; Stop 05/10/18 at 18:43; Status DC Insulin Human Lispro (HumaLOG) 10 units DAILY SQ Last administered on at 09:00; Start 05/06/18 at 09:00; Stop 05/14/18 at 14:30; Status DC Insulin Human Lispro (HumaLOG) 25 units NOON SQ Last administered on 05/13/18at 12:00; Start 05/05/18 at 12:00; Stop 05/14/18 at 14:30; Status DC Insulin Human Lispro (HumaLOG) 15 units 1700 SQ Last administered on 05/13/18at 17:00; Start 05/05/18 at 17:00; Stop 05/14/18 at 14:30; Status DC Insulin Glargine (Lantus) 50 units QHS SQ Last administered on 05/30/18at 20:07 ; Start 05/05/18 at 21:00 Fluvoxamine Maleate (Luvox) 125 mg QHS PO Last administered on 05/08/18at 20:40 ; Start 05/06/18 at 21:00; Stop 05/08/18 at 20:50; Status DC Fluvoxamine Maleate (Luvox) 25 mg QHS PO Last administered on 05/07/18at 21:01; Start 05/06/18 at 21:00; Stop 05/08/18 at 19:26; Status DC Trazodone HCl (Desyrel) 75 mg DAILY@0900 PO Last administered on 05/30/18at 08: 01; Start 05/08/18 at 09:00 Trazodone HCl (Desyrel) 50 mg BID@1300,1700 PO Last administered on 05/14/18at 12:25; Start 05/08/18 at 13:00; Stop 05/14/18 at 16:22; Status DC Fluvoxamine Maleate (Luvox) 75 mg QHS PO ; Start 05/08/18 at 21:00; Stop at 21:00; Status DC Fluvoxamine Maleate (Luvox) 150 mg HS PO Last administered on 05/30/18at 20:03; Start 05/08/18 at 21:00 Oxcarbazepine (Trileptal) 150 mg 0900,1700 PO Last administered on 05/13/18at 18 :22; Start 05/09/18 at 17:00; Stop 05/13/18 at 19:18; Status DC Olanzapine (ZyPREXA ZYDIS) 2.5 mg PRN Q2HR PRN PO PSYCHOSIS Last administered on 05/28/18at 19:44; Start 05/09/18 at 17:30 Oxcarbazepine (Trileptal) 300 mg 0900,1700 PO Last administered on 05/28/18at 17 :35; Start 05/14/18 at 09:00; Stop 05/28/18 at 18:51; Status DC Insulin Human Lispro (HumaLOG) 0-7 UNITS TIDWMEALS SQ Last administered on 05/30at 17:13; Start 05/14/18 at 17:00 Dextrose 12.5 gm PRN Q15MIN PRN IV SEE COMMENTS; Start 05/14/18 at 14:30 Trazodone HCl (Desyrel) 75 mg BID@1300,1700 PO Last administered on 05/30/18at 17:10; Start 05/14/18 at 17:00 Amoxicillin (Amoxil) 250 mg [id number] PO Last administered on 05/29/18at 13:55; Start 05/24/18 at 21:00; Stop 05/29/18 at 15:29; Status DC Oxcarbazepine (Trileptal) 450 mg 0900,1700 PO Last administered on 05/30/18at 17 :11; Start 05/29/18 at 09:00 Cefpodoxime Proxetil (Vantin) 200 mg BID PO Last administered on 05/30/18at 20: 03; Start 05/29/18 at 21:00; Stop 06/08/18 at 21:00 Active Scripts Active Reported Humalog (Insulin Lispro) 100 Unit/1 Ml Insuln.pen 0-7 Unit SQ TIDWMEALS BG 70-150= 0 units if eating; 0 units if not eating/HS BG 151-200= 3 units if eating; 0 units if not eating/HS BG 201-250= 4 units if eating; 2 units if not eating/HS BG 251-300= 6 units if eating; 3 units if not eating/HS BG 301-351= 7 units if eating; 4 units if not eating/HS BG >351= call provider for orders Fenofibrate (Fenofibrate Nanocrystallized) 48 Mg Tablet 48 Mg PO QHS Protonix (Pantoprazole Sodium) 40 Mg Tablet.dr 40 Mg PO DAILYAC Fluvoxamine Maleate 100 Mg Tablet 100 Mg PO HS Seroquel (Quetiapine Fumarate) 25 Mg Tablet 25 Mg PO BID Nystop (Nystatin) 60 Gm Powder 1 Porsche TP BID Lisinopril 5 Mg Tablet 5 Mg PO DAILY Nystop (Nystatin) 60 Gm Powder 1 Porsche TP PRN TID PRN Trazodone Hcl 50 Mg Tablet 50 Mg PO TIDWMEALS Clonazepam 0.5 Mg Tablet 0.5 Mg PO BID@1200,2100 Anusol-Hc (Hydrocortisone Acetate) 25 Mg Supp.rect 25 Mg RC PRN DAILY PRN Probiotic (Lactobacillus Acidophilus) 1 Each Capsule 1 Cap PO BID Levothyroxine Sodium 25 Mcg Tablet 25 Mcg PO DAILY06 Vitamin D3 (Cholecalciferol (Vitamin D3)) 50,000 Unit Capsule 50,000 Unit PO QMONTH Administer on the 15th of every Month I have reviewed the current psychotropics carefully including drug interactions. Risk benefit ratio favors no change other than as noted in my dictated progress note. Diagnosis: Problems: (1) Intellectual disability (2) Anxiety (3) Dementia (4) Impulse control disorder (5) Impulse control disorder (6) Obsessive compulsive disorder (7) Medical clearance for psychiatric admission (8) IMPULSE DISORDER, UNSPECIFIED (9) Dementia (10) DMII (diabetes mellitus, type 2) IDA LAINEZ MD May 30, 2018 21:01
--- NOTE | 2018-05-31 00:27 | PN ---
DATE: 05/29/2018 PSYCHIATRIC PROGRESS NOTE This is a late entry of 05/29/2018, covers elements not covered in my initial note. SUBJECTIVE: I met with the patient in the evening. The patient slept 4-3/4 hours previous evening, resistive to a.m. medications, somewhat tired, still obsessive, repetitive regarding discharge plans, but less so than before. REVIEW OF SYSTEMS: Ambulation impaired with walker. No CV, , pulmonary, eye, ENT system symptoms on review. Reliability varies. MENTAL STATUS EXAM: Oriented to herself and situation. Speech coherent, rapid at times, somewhat loud at times, especially when talking about discharge plans. Abstraction fair, computation impaired, language function intact, attention span short. Mood and affect remains anxious, labile, and somewhat manic at times. LABORATORY DATA: Reviewed. IMPRESSION: Unchanged from initial note. PLAN: No change from initial note. MAN Stuart LAINEZ MD DR: YO/bakari JOB#: [id number] / [id number]
--- NOTE | 2018-05-31 01:27 | PDOC ---
Exam Note: Marcelo Note: Please also refer to the separate dictated note~for this date of service dictated separately.~Patient seen individually. Discussed the patient with Nursing staff reviewed the chart.~Reviewed interim history and current functioning. Reviewed vital signs,~Labs/ Radiology~and current medications noted below. Continue current treatment with the changes noted in the dictated addendum note Assessment: Vital Signs: Vital Signs Date Time Temp Pulse Resp B/P (MAP) Pulse Ox O2 Delivery O2 Flow Rate FiO2 05/30/18 16:12 97.4 72 17 112/68 (83) 95 Room Air I&O Intake and Output 05/31/18 07:00 Intake Total 1200 ml Balance 1200 ml Intake Oral 1200 ml # Voids 1 Labs: Laboratory Tests Test 05/30/18 07:42 05/30/18 11:43 05/30/18 16:19 05/30/18 19:08 Glucose (Fingerstick) 82 mg/dL (70-99) 224 mg/dL (70-99) H 172 mg/dL (70-99) H 238 mg/dL (70-99) H Current Medications: Meds: Current Medications Acetaminophen (Tylenol) 650 mg PRN Q6HRS PRN PO PAIN / TEMP; Start 05/04/18 at 17:30 Multi-Ingredient Ointment (Analgesic [place]) 1 porsche PRN QID PRN TP MUSCLE PAIN; Start 05/04/18 at 17:30 Al Hydroxide/Mg Hydroxide (Mylanta Plus Xs) 15 ml PRN AFTMEALHC PRN PO DYSPEPSIA; Start 05/04/18 at 17:30 Magnesium Hydroxide (Milk Of Magnesia) 2,400 mg PRN QHS PRN PO CONSTIPATION; Start 05/04/18 at 17:30 Vitamin D (Vitamin D3) 50,000 unit QMONTH PO ; Start 06/03/18 at 09:00 Insulin Human Lispro (HumaLOG) 0-7 TIDWMEALS SQ ; Start 05/05/18 at 08:00; Stop 05/05/18 at 08:00; Status DC Nystatin (Nystop) 1 porsche BID TP Last administered on 05/30/18at 20:05; Start at 21:00 Nystatin (Nystop) 1 porsche PRN TID PRN TP RASH; Start 05/04/18 at 18:00 Fenofibrate (Tricor) 48 mg QHS PO Last administered on 05/30/18at 20:05; Start 05/04/18 at 21:00 Hydrocortisone (Proctosol-Hc) 1 porsche PRN BID PRN RC BURNING OR BLOOD IN RECTUM; Start 05/04/18 at 19:30 Lactobacillus Rhamnosus (Culturelle) 1 cap BID PO Last administered on at 20:03; Start 05/04/18 at 21:00 Levothyroxine Sodium (Synthroid) 25 mcg DAILY06 PO Last administered on at 05:43; Start 05/05/18 at 06:00 Lisinopril (Prinivil) 5 mg DAILY PO Last administered on 05/29/18at 09:15; Start 05/05/18 at 09:00 Pantoprazole Sodium (Protonix) 40 mg DAILYAC PO Last administered on 05/30/18at 08:02; Start 05/05/18 at 07:30 Clonazepam (KlonoPIN) 0.5 mg BID@1200,2100 PO Last administered on 05/30/18at 20 :05; Start 05/04/18 at 21:00 Fluvoxamine Maleate (Luvox) 100 mg QHS PO Last administered on 05/05/18at 20:07 ; Start 05/04/18 at 21:00; Stop 05/06/18 at 18:15; Status DC Quetiapine Fumarate (SEROquel) 25 mg BID PO Last administered on 05/05/18at 20: 07; Start 05/04/18 at 21:00; Stop 05/05/18 at 21:01; Status DC Trazodone HCl (Desyrel) 50 mg TIDWMEALS PO Last administered on 05/07/18at 17:52 ; Start 05/04/18 at 19:30; Stop 05/07/18 at 18:34; Status DC Insulin Human Lispro (HumaLOG) 0-7 UNITS TIDWMEALS SQ Last administered on 05/10at 09:37; Start 05/05/18 at 08:00; Stop 05/10/18 at 18:43; Status DC Insulin Human Lispro (HumaLOG) 10 units DAILY SQ Last administered on at 09:00; Start 05/06/18 at 09:00; Stop 05/14/18 at 14:30; Status DC Insulin Human Lispro (HumaLOG) 25 units NOON SQ Last administered on 05/13/18at 12:00; Start 05/05/18 at 12:00; Stop 05/14/18 at 14:30; Status DC Insulin Human Lispro (HumaLOG) 15 units 1700 SQ Last administered on 05/13/18at 17:00; Start 05/05/18 at 17:00; Stop 05/14/18 at 14:30; Status DC Insulin Glargine (Lantus) 50 units QHS SQ Last administered on 05/30/18at 20:07 ; Start 05/05/18 at 21:00 Fluvoxamine Maleate (Luvox) 125 mg QHS PO Last administered on 05/08/18at 20:40 ; Start 05/06/18 at 21:00; Stop 05/08/18 at 20:50; Status DC Fluvoxamine Maleate (Luvox) 25 mg QHS PO Last administered on 05/07/18at 21:01; Start 05/06/18 at 21:00; Stop 05/08/18 at 19:26; Status DC Trazodone HCl (Desyrel) 75 mg DAILY@0900 PO Last administered on 05/30/18at 08: 01; Start 05/08/18 at 09:00 Trazodone HCl (Desyrel) 50 mg BID@1300,1700 PO Last administered on 05/14/18at 12:25; Start 05/08/18 at 13:00; Stop 05/14/18 at 16:22; Status DC Fluvoxamine Maleate (Luvox) 75 mg QHS PO ; Start 05/08/18 at 21:00; Stop at 21:00; Status DC Fluvoxamine Maleate (Luvox) 150 mg HS PO Last administered on 05/30/18at 20:03; Start 05/08/18 at 21:00 Oxcarbazepine (Trileptal) 150 mg 0900,1700 PO Last administered on 05/13/18at 18 :22; Start 05/09/18 at 17:00; Stop 05/13/18 at 19:18; Status DC Olanzapine (ZyPREXA ZYDIS) 2.5 mg PRN Q2HR PRN PO PSYCHOSIS Last administered on 05/28/18at 19:44; Start 05/09/18 at 17:30 Oxcarbazepine (Trileptal) 300 mg 0900,1700 PO Last administered on 05/28/18at 17 :35; Start 05/14/18 at 09:00; Stop 05/28/18 at 18:51; Status DC Insulin Human Lispro (HumaLOG) 0-7 UNITS TIDWMEALS SQ Last administered on 05/30at 17:13; Start 05/14/18 at 17:00 Dextrose 12.5 gm PRN Q15MIN PRN IV SEE COMMENTS; Start 05/14/18 at 14:30 Trazodone HCl (Desyrel) 75 mg BID@1300,1700 PO Last administered on 05/30/18at 17:10; Start 05/14/18 at 17:00 Amoxicillin (Amoxil) 250 mg [id number] PO Last administered on 05/29/18at 13:55; Start 05/24/18 at 21:00; Stop 05/29/18 at 15:29; Status DC Oxcarbazepine (Trileptal) 450 mg 0900,1700 PO Last administered on 05/30/18at 17 :11; Start 05/29/18 at 09:00 Cefpodoxime Proxetil (Vantin) 200 mg BID PO Last administered on 05/30/18at 20: 03; Start 05/29/18 at 21:00; Stop 06/08/18 at 21:00 Active Scripts Active Reported Humalog (Insulin Lispro) 100 Unit/1 Ml Insuln.pen 0-7 Unit SQ TIDWMEALS BG 70-150= 0 units if eating; 0 units if not eating/HS BG 151-200= 3 units if eating; 0 units if not eating/HS BG 201-250= 4 units if eating; 2 units if not eating/HS BG 251-300= 6 units if eating; 3 units if not eating/HS BG 301-351= 7 units if eating; 4 units if not eating/HS BG >351= call provider for orders Fenofibrate (Fenofibrate Nanocrystallized) 48 Mg Tablet 48 Mg PO QHS Protonix (Pantoprazole Sodium) 40 Mg Tablet.dr 40 Mg PO DAILYAC Fluvoxamine Maleate 100 Mg Tablet 100 Mg PO HS Seroquel (Quetiapine Fumarate) 25 Mg Tablet 25 Mg PO BID Nystop (Nystatin) 60 Gm Powder 1 Porsche TP BID Lisinopril 5 Mg Tablet 5 Mg PO DAILY Nystop (Nystatin) 60 Gm Powder 1 Porsche TP PRN TID PRN Trazodone Hcl 50 Mg Tablet 50 Mg PO TIDWMEALS Clonazepam 0.5 Mg Tablet 0.5 Mg PO BID@1200,2100 Anusol-Hc (Hydrocortisone Acetate) 25 Mg Supp.rect 25 Mg RC PRN DAILY PRN Probiotic (Lactobacillus Acidophilus) 1 Each Capsule 1 Cap PO BID Levothyroxine Sodium 25 Mcg Tablet 25 Mcg PO DAILY06 Vitamin D3 (Cholecalciferol (Vitamin D3)) 50,000 Unit Capsule 50,000 Unit PO QMONTH Administer on the 15th of every Month I have reviewed the current psychotropics carefully including drug interactions. Risk benefit ratio favors no change other than as noted in my dictated progress note. Diagnosis: Problems: (1) Intellectual disability (2) Anxiety (3) Dementia (4) Impulse control disorder (5) Impulse control disorder (6) Obsessive compulsive disorder (7) Medical clearance for psychiatric admission (8) IMPULSE DISORDER, UNSPECIFIED (9) Dementia (10) DMII (diabetes mellitus, type 2) IDA LAINEZ MD May 31, 2018 01:27
[2018-05-31] MEDS: LEVOTHYROXINE 25 MCG TABLET. PO SCH (05:55)
[2018-05-31 06:08] VITALS: BP 131/62
[2018-05-31] MEDS: traZODone 50 MG TABLET. PO SCH ×3 (07:41→17:18)
[2018-05-31] MEDS: CEFPODOXIME PROXETIL 100 MG TABLET PO SCH ×2 (07:42→20:07)
[2018-05-31] MEDS: OXcarbazepine 150 MG TABLET. PO SCH ×2 (07:42→17:18)
[2018-05-31] MEDS: LACTOBACILLUS RHAMNOSUS GG 1 CAPSULE. PO SCH ×2 (07:42→20:07)
[2018-05-31] MEDS: LISINOPRIL 5 MG TABLET. PO SCH (07:42)
[2018-05-31] MEDS: PANTOPRAZOLE 40 MG TABLET. PO SCH (07:42)
[2018-05-31] MEDS: NYSTATIN TOPICAL POWDER 15GM BOTTLE. TP SCH ×2 (07:43→20:06)
[2018-05-31] MEDS: INSULIN LISPRO 300 UNITS/3 ML INSULN.PEN. SQ SCH ×3 (07:43→17:20)
[2018-05-31] MEDS: clonazePAM 0.5 MG TABLET PO SCH ×2 (12:17→20:06)
--- NOTE | 2018-05-31 13:10 | PN ---
DATE: 05/30/2018 PSYCHIATRIC PROGRESS NOTE This is a late entry, 05/30, covers elements not covered in my initial note. SUBJECTIVE: I met with the patient in the evening, staffed at treatment team meeting with the entire team in the morning with Ricky, patient's sister, and before that briefly with, Paul, patient's brother, but he could not attend the main conference. Reviewed the patient's history, diagnosis. Her urine cultures returned positive and she is on Vantin for UTI. We will have to postpone the discharge a few days to make sure UTI resolves and chance of her agitation, psychotic symptoms, is minimized post discharge. REVIEW OF SYSTEMS: Ambulation impaired with walker. No CV, , pulmonary, eye, ENT system symptoms on review. MENTAL STATUS EXAM: Oriented to herself and situation. Speech coherent, rapid at times, less pressured, less obsessive. Abstraction fair, computation impaired, language function intact, attention span short. Mood and affect still somewhat labile, grandiose at times, but less so than before, less obsessive. LABORATORY DATA: Reviewed. IMPRESSION: Bipolar 1 disorder, mixed; obsessive-compulsive disorder; anxiety disorder, unspecified; intellectual disability. Rest unchanged including urinary tract infection. PLAN: As noted above. Treat the UTI. She remains on Klonopin, Luvox, trazodone, Trileptal, the latter as a mood stabilizer. IDA LAINEZ MD DR: YO/bakari JOB#: [id number] / [id number]
[2018-05-31 16:03] VITALS: BP 125/62
[2018-05-31] MEDS: FENOFIBRATE NANOCRYSTALLIZED 48 MG TABLET PO SCH (20:07)
[2018-05-31] MEDS: INSULIN GLARGINE 300 UNITS/3 ML INSULN.PEN. SQ SCH (20:09)
--- NOTE | 2018-05-31 20:30 | PDOC ---
Exam Note: Marcelo Note: Please also refer to the separate dictated note~for this date of service dictated separately.~Patient seen individually. Discussed the patient with Nursing staff reviewed the chart.~Reviewed interim history and current functioning. Reviewed vital signs,~Labs/ Radiology~and current medications noted below. Continue current treatment with the changes noted in the dictated addendum note Assessment: Vital Signs: Vital Signs Date Time Temp Pulse Resp B/P (MAP) Pulse Ox O2 Delivery O2 Flow Rate FiO2 05/31/18 16:03 97.4 73 17 125/62 (83) 96 Room Air I&O Intake and Output 05/31/18 06:59 Intake Total 1200 ml Balance 1200 ml Intake Oral 1200 ml # Voids 1 Labs: Laboratory Tests Test 05/31/18 07:21 05/31/18 11:50 05/31/18 16:10 05/31/18 19:51 Glucose (Fingerstick) 74 mg/dL (70-99) 163 mg/dL (70-99) H 207 mg/dL (70-99) H 211 mg/dL (70-99) H Current Medications: Meds: Current Medications Acetaminophen (Tylenol) 650 mg PRN Q6HRS PRN PO PAIN / TEMP; Start 05/04/18 at 17:30 Multi-Ingredient Ointment (Analgesic [place]) 1 porsche PRN QID PRN TP MUSCLE PAIN; Start 05/04/18 at 17:30 Al Hydroxide/Mg Hydroxide (Mylanta Plus Xs) 15 ml PRN AFTMEALHC PRN PO DYSPEPSIA; Start 05/04/18 at 17:30 Magnesium Hydroxide (Milk Of Magnesia) 2,400 mg PRN QHS PRN PO CONSTIPATION; Start 05/04/18 at 17:30 Vitamin D (Vitamin D3) 50,000 unit QMONTH PO ; Start 06/03/18 at 09:00 Insulin Human Lispro (HumaLOG) 0-7 TIDWMEALS SQ ; Start 05/05/18 at 08:00; Stop 05/05/18 at 08:00; Status DC Nystatin (Nystop) 1 porsche BID TP Last administered on 05/31/18at 20:06; Start at 21:00 Nystatin (Nystop) 1 porsche PRN TID PRN TP RASH; Start 05/04/18 at 18:00 Fenofibrate (Tricor) 48 mg QHS PO Last administered on 05/31/18at 20:07; Start 05/04/18 at 21:00 Hydrocortisone (Proctosol-Hc) 1 porsche PRN BID PRN RC BURNING OR BLOOD IN RECTUM; Start 05/04/18 at 19:30 Lactobacillus Rhamnosus (Culturelle) 1 cap BID PO Last administered on at 20:07; Start 05/04/18 at 21:00 Levothyroxine Sodium (Synthroid) 25 mcg DAILY06 PO Last administered on at 05:55; Start 05/05/18 at 06:00 Lisinopril (Prinivil) 5 mg DAILY PO Last administered on 05/31/18at 07:42; Start 05/05/18 at 09:00 Pantoprazole Sodium (Protonix) 40 mg DAILYAC PO Last administered on 05/31/18at 07:42; Start 05/05/18 at 07:30 Clonazepam (KlonoPIN) 0.5 mg BID@1200,2100 PO Last administered on 05/31/18at 20 :06; Start 05/04/18 at 21:00 Fluvoxamine Maleate (Luvox) 100 mg QHS PO Last administered on 05/05/18at 20:07 ; Start 05/04/18 at 21:00; Stop 05/06/18 at 18:15; Status DC Quetiapine Fumarate (SEROquel) 25 mg BID PO Last administered on 05/05/18at 20: 07; Start 05/04/18 at 21:00; Stop 05/05/18 at 21:01; Status DC Trazodone HCl (Desyrel) 50 mg TIDWMEALS PO Last administered on 05/07/18at 17:52 ; Start 05/04/18 at 19:30; Stop 05/07/18 at 18:34; Status DC Insulin Human Lispro (HumaLOG) 0-7 UNITS TIDWMEALS SQ Last administered on 05/10at 09:37; Start 05/05/18 at 08:00; Stop 05/10/18 at 18:43; Status DC Insulin Human Lispro (HumaLOG) 10 units DAILY SQ Last administered on at 09:00; Start 05/06/18 at 09:00; Stop 05/14/18 at 14:30; Status DC Insulin Human Lispro (HumaLOG) 25 units NOON SQ Last administered on 05/13/18at 12:00; Start 05/05/18 at 12:00; Stop 05/14/18 at 14:30; Status DC Insulin Human Lispro (HumaLOG) 15 units 1700 SQ Last administered on 05/13/18at 17:00; Start 05/05/18 at 17:00; Stop 05/14/18 at 14:30; Status DC Insulin Glargine (Lantus) 50 units QHS SQ Last administered on 05/31/18at 20:09 ; Start 05/05/18 at 21:00 Fluvoxamine Maleate (Luvox) 125 mg QHS PO Last administered on 05/08/18at 20:40 ; Start 05/06/18 at 21:00; Stop 05/08/18 at 20:50; Status DC Fluvoxamine Maleate (Luvox) 25 mg QHS PO Last administered on 05/07/18at 21:01; Start 05/06/18 at 21:00; Stop 05/08/18 at 19:26; Status DC Trazodone HCl (Desyrel) 75 mg DAILY@0900 PO Last administered on 05/31/18at 07: 41; Start 05/08/18 at 09:00 Trazodone HCl (Desyrel) 50 mg BID@1300,1700 PO Last administered on 05/14/18at 12:25; Start 05/08/18 at 13:00; Stop 05/14/18 at 16:22; Status DC Fluvoxamine Maleate (Luvox) 75 mg QHS PO ; Start 05/08/18 at 21:00; Stop at 21:00; Status DC Fluvoxamine Maleate (Luvox) 150 mg HS PO Last administered on 05/31/18at 20:07; Start 05/08/18 at 21:00 Oxcarbazepine (Trileptal) 150 mg 0900,1700 PO Last administered on 05/13/18at 18 :22; Start 05/09/18 at 17:00; Stop 05/13/18 at 19:18; Status DC Olanzapine (ZyPREXA ZYDIS) 2.5 mg PRN Q2HR PRN PO PSYCHOSIS Last administered on 05/28/18at 19:44; Start 05/09/18 at 17:30 Oxcarbazepine (Trileptal) 300 mg 0900,1700 PO Last administered on 05/28/18at 17 :35; Start 05/14/18 at 09:00; Stop 05/28/18 at 18:51; Status DC Insulin Human Lispro (HumaLOG) 0-7 UNITS TIDWMEALS SQ Last administered on 05/31at 17:20; Start 05/14/18 at 17:00 Dextrose 12.5 gm PRN Q15MIN PRN IV SEE COMMENTS; Start 05/14/18 at 14:30 Trazodone HCl (Desyrel) 75 mg BID@1300,1700 PO Last administered on 05/31/18at 17:18; Start 05/14/18 at 17:00 Amoxicillin (Amoxil) 250 mg [id number] PO Last administered on 05/29/18at 13:55; Start 05/24/18 at 21:00; Stop 05/29/18 at 15:29; Status DC Oxcarbazepine (Trileptal) 450 mg 0900,1700 PO Last administered on 05/31/18at 17 :18; Start 05/29/18 at 09:00 Cefpodoxime Proxetil (Vantin) 200 mg BID PO Last administered on 05/31/18at 20: 07; Start 05/29/18 at 21:00; Stop 06/08/18 at 21:00 Active Scripts Active Reported Humalog (Insulin Lispro) 100 Unit/1 Ml Insuln.pen 0-7 Unit SQ TIDWMEALS BG 70-150= 0 units if eating; 0 units if not eating/HS BG 151-200= 3 units if eating; 0 units if not eating/HS BG 201-250= 4 units if eating; 2 units if not eating/HS BG 251-300= 6 units if eating; 3 units if not eating/HS BG 301-351= 7 units if eating; 4 units if not eating/HS BG >351= call provider for orders Fenofibrate (Fenofibrate Nanocrystallized) 48 Mg Tablet 48 Mg PO QHS Protonix (Pantoprazole Sodium) 40 Mg Tablet.dr 40 Mg PO DAILYAC Fluvoxamine Maleate 100 Mg Tablet 100 Mg PO HS Seroquel (Quetiapine Fumarate) 25 Mg Tablet 25 Mg PO BID Nystop (Nystatin) 60 Gm Powder 1 Porsche TP BID Lisinopril 5 Mg Tablet 5 Mg PO DAILY Nystop (Nystatin) 60 Gm Powder 1 Porsche TP PRN TID PRN Trazodone Hcl 50 Mg Tablet 50 Mg PO TIDWMEALS Clonazepam 0.5 Mg Tablet 0.5 Mg PO BID@1200,2100 Anusol-Hc (Hydrocortisone Acetate) 25 Mg Supp.rect 25 Mg RC PRN DAILY PRN Probiotic (Lactobacillus Acidophilus) 1 Each Capsule 1 Cap PO BID Levothyroxine Sodium 25 Mcg Tablet 25 Mcg PO DAILY06 Vitamin D3 (Cholecalciferol (Vitamin D3)) 50,000 Unit Capsule 50,000 Unit PO QMONTH Administer on the 15th of every Month I have reviewed the current psychotropics carefully including drug interactions. Risk benefit ratio favors no change other than as noted in my dictated progress note. Diagnosis: Problems: (1) Intellectual disability (2) Anxiety (3) Dementia (4) Impulse control disorder (5) Impulse control disorder (6) Obsessive compulsive disorder (7) Medical clearance for psychiatric admission (8) IMPULSE DISORDER, UNSPECIFIED (9) Dementia (10) DMII (diabetes mellitus, type 2) IDA LAINEZ MD May 31, 2018 20:30
[2018-06-01 06:04] VITALS: BP 137/71
[2018-06-01] MEDS: LEVOTHYROXINE 25 MCG TABLET. PO SCH (06:24)
[2018-06-01] MEDS: INSULIN LISPRO 300 UNITS/3 ML INSULN.PEN. SQ SCH ×3 (07:53→17:00)
[2018-06-01] MEDS: PANTOPRAZOLE 40 MG TABLET. PO SCH (08:36)
[2018-06-01] MEDS: LACTOBACILLUS RHAMNOSUS GG 1 CAPSULE. PO SCH ×2 (08:36→20:16)
[2018-06-01] MEDS: NYSTATIN TOPICAL POWDER 15GM BOTTLE. TP SCH ×2 (08:37→20:16)
[2018-06-01] MEDS: LISINOPRIL 5 MG TABLET. PO SCH (08:37)
[2018-06-01] MEDS: OXcarbazepine 150 MG TABLET. PO SCH ×2 (08:37→17:46)
[2018-06-01] MEDS: CEFPODOXIME PROXETIL 100 MG TABLET PO SCH ×2 (08:37→20:16)
[2018-06-01] MEDS: traZODone 50 MG TABLET. PO SCH ×3 (08:37→17:47)
[2018-06-01] MEDS: clonazePAM 0.5 MG TABLET PO SCH ×2 (13:38→20:17)
[2018-06-01 16:47] VITALS: BP 124/76
[2018-06-01] MEDS: FENOFIBRATE NANOCRYSTALLIZED 48 MG TABLET PO SCH (20:17)
[2018-06-01] MEDS: INSULIN GLARGINE 300 UNITS/3 ML INSULN.PEN. SQ SCH (20:19)
--- NOTE | 2018-06-01 22:22 | PDOC ---
Exam Note: Marcelo Note: Please also refer to the separate dictated note~for this date of service dictated separately.~Patient seen individually. Discussed the patient with Nursing staff reviewed the chart.~Reviewed interim history and current functioning. Reviewed vital signs,~Labs/ Radiology~and current medications noted below. Continue current treatment with the changes noted in the dictated addendum note Assessment: Vital Signs: Vital Signs Date Time Temp Pulse Resp B/P (MAP) Pulse Ox O2 Delivery O2 Flow Rate FiO2 06/01/18 16:47 98.8 70 18 124/76 (92) 97 05/31/18 16:03 Room Air I&O Intake and Output 06/01/18 07:01 Intake Total 1080 ml Balance 1080 ml Intake Oral 1080 ml # Bowel Movements 1 Labs: Laboratory Tests Test 06/01/18 07:37 06/01/18 11:18 06/01/18 16:55 06/01/18 20:06 Glucose (Fingerstick) 111 mg/dL (70-99) H 192 mg/dL (70-99) H 182 mg/dL (70-99) H 153 mg/dL (70-99) H Current Medications: Meds: Current Medications Acetaminophen (Tylenol) 650 mg PRN Q6HRS PRN PO PAIN / TEMP; Start 05/04/18 at 17:30 Multi-Ingredient Ointment (Analgesic [place]) 1 porsche PRN QID PRN TP MUSCLE PAIN; Start 05/04/18 at 17:30 Al Hydroxide/Mg Hydroxide (Mylanta Plus Xs) 15 ml PRN AFTMEALHC PRN PO DYSPEPSIA; Start 05/04/18 at 17:30 Magnesium Hydroxide (Milk Of Magnesia) 2,400 mg PRN QHS PRN PO CONSTIPATION; Start 05/04/18 at 17:30 Vitamin D (Vitamin D3) 50,000 unit QMONTH PO ; Start 06/03/18 at 09:00 Insulin Human Lispro (HumaLOG) 0-7 TIDWMEALS SQ ; Start 05/05/18 at 08:00; Stop 05/05/18 at 08:00; Status DC Nystatin (Nystop) 1 porsche BID TP Last administered on 06/01/18at 20:16; Start at 21:00 Nystatin (Nystop) 1 porsche PRN TID PRN TP RASH; Start 05/04/18 at 18:00 Fenofibrate (Tricor) 48 mg QHS PO Last administered on 06/01/18at 20:17; Start 05/04/18 at 21:00 Hydrocortisone (Proctosol-Hc) 1 porsche PRN BID PRN RC BURNING OR BLOOD IN RECTUM; Start 05/04/18 at 19:30 Lactobacillus Rhamnosus (Culturelle) 1 cap BID PO Last administered on at 20:16; Start 05/04/18 at 21:00 Levothyroxine Sodium (Synthroid) 25 mcg DAILY06 PO Last administered on at 06:24; Start 05/05/18 at 06:00 Lisinopril (Prinivil) 5 mg DAILY PO Last administered on 06/01/18at 08:37; Start 05/05/18 at 09:00 Pantoprazole Sodium (Protonix) 40 mg DAILYAC PO Last administered on 06/01/18at 08:36; Start 05/05/18 at 07:30 Clonazepam (KlonoPIN) 0.5 mg BID@1200,2100 PO Last administered on 06/01/18at 20 :17; Start 05/04/18 at 21:00 Fluvoxamine Maleate (Luvox) 100 mg QHS PO Last administered on 05/05/18at 20:07 ; Start 05/04/18 at 21:00; Stop 05/06/18 at 18:15; Status DC Quetiapine Fumarate (SEROquel) 25 mg BID PO Last administered on 05/05/18at 20: 07; Start 05/04/18 at 21:00; Stop 05/05/18 at 21:01; Status DC Trazodone HCl (Desyrel) 50 mg TIDWMEALS PO Last administered on 05/07/18at 17:52 ; Start 05/04/18 at 19:30; Stop 05/07/18 at 18:34; Status DC Insulin Human Lispro (HumaLOG) 0-7 UNITS TIDWMEALS SQ Last administered on 05/10at 09:37; Start 05/05/18 at 08:00; Stop 05/10/18 at 18:43; Status DC Insulin Human Lispro (HumaLOG) 10 units DAILY SQ Last administered on at 09:00; Start 05/06/18 at 09:00; Stop 05/14/18 at 14:30; Status DC Insulin Human Lispro (HumaLOG) 25 units NOON SQ Last administered on 05/13/18at 12:00; Start 05/05/18 at 12:00; Stop 05/14/18 at 14:30; Status DC Insulin Human Lispro (HumaLOG) 15 units 1700 SQ Last administered on 05/13/18at 17:00; Start 05/05/18 at 17:00; Stop 05/14/18 at 14:30; Status DC Insulin Glargine (Lantus) 50 units QHS SQ Last administered on 06/01/18at 20:19 ; Start 05/05/18 at 21:00 Fluvoxamine Maleate (Luvox) 125 mg QHS PO Last administered on 05/08/18at 20:40 ; Start 05/06/18 at 21:00; Stop 05/08/18 at 20:50; Status DC Fluvoxamine Maleate (Luvox) 25 mg QHS PO Last administered on 05/07/18at 21:01; Start 05/06/18 at 21:00; Stop 05/08/18 at 19:26; Status DC Trazodone HCl (Desyrel) 75 mg DAILY@0900 PO Last administered on 06/01/18at 08: 37; Start 05/08/18 at 09:00 Trazodone HCl (Desyrel) 50 mg BID@1300,1700 PO Last administered on 05/14/18at 12:25; Start 05/08/18 at 13:00; Stop 05/14/18 at 16:22; Status DC Fluvoxamine Maleate (Luvox) 75 mg QHS PO ; Start 05/08/18 at 21:00; Stop at 21:00; Status DC Fluvoxamine Maleate (Luvox) 150 mg HS PO Last administered on 06/01/18at 20:17; Start 05/08/18 at 21:00 Oxcarbazepine (Trileptal) 150 mg 0900,1700 PO Last administered on 05/13/18at 18 :22; Start 05/09/18 at 17:00; Stop 05/13/18 at 19:18; Status DC Olanzapine (ZyPREXA ZYDIS) 2.5 mg PRN Q2HR PRN PO PSYCHOSIS Last administered on 05/28/18at 19:44; Start 05/09/18 at 17:30 Oxcarbazepine (Trileptal) 300 mg 0900,1700 PO Last administered on 05/28/18at 17 :35; Start 05/14/18 at 09:00; Stop 05/28/18 at 18:51; Status DC Insulin Human Lispro (HumaLOG) 0-7 UNITS TIDWMEALS SQ Last administered on 06/01at 12:00; Start 05/14/18 at 17:00 Dextrose 12.5 gm PRN Q15MIN PRN IV SEE COMMENTS; Start 05/14/18 at 14:30 Trazodone HCl (Desyrel) 75 mg BID@1300,1700 PO Last administered on 06/01/18at 17:47; Start 05/14/18 at 17:00 Amoxicillin (Amoxil) 250 mg [id number] PO Last administered on 05/29/18at 13:55; Start 05/24/18 at 21:00; Stop 05/29/18 at 15:29; Status DC Oxcarbazepine (Trileptal) 450 mg 0900,1700 PO Last administered on 06/01/18at 17 :46; Start 05/29/18 at 09:00 Cefpodoxime Proxetil (Vantin) 200 mg BID PO Last administered on 06/01/18at 20: 16; Start 05/29/18 at 21:00; Stop 06/08/18 at 21:00 Active Scripts Active Reported Humalog (Insulin Lispro) 100 Unit/1 Ml Insuln.pen 0-7 Unit SQ TIDWMEALS BG 70-150= 0 units if eating; 0 units if not eating/HS BG 151-200= 3 units if eating; 0 units if not eating/HS BG 201-250= 4 units if eating; 2 units if not eating/HS BG 251-300= 6 units if eating; 3 units if not eating/HS BG 301-351= 7 units if eating; 4 units if not eating/HS BG >351= call provider for orders Fenofibrate (Fenofibrate Nanocrystallized) 48 Mg Tablet 48 Mg PO QHS Protonix (Pantoprazole Sodium) 40 Mg Tablet.dr 40 Mg PO DAILYAC Fluvoxamine Maleate 100 Mg Tablet 100 Mg PO HS Seroquel (Quetiapine Fumarate) 25 Mg Tablet 25 Mg PO BID Nystop (Nystatin) 60 Gm Powder 1 Porsche TP BID Lisinopril 5 Mg Tablet 5 Mg PO DAILY Nystop (Nystatin) 60 Gm Powder 1 Porsche TP PRN TID PRN Trazodone Hcl 50 Mg Tablet 50 Mg PO TIDWMEALS Clonazepam 0.5 Mg Tablet 0.5 Mg PO BID@1200,2100 Anusol-Hc (Hydrocortisone Acetate) 25 Mg Supp.rect 25 Mg RC PRN DAILY PRN Probiotic (Lactobacillus Acidophilus) 1 Each Capsule 1 Cap PO BID Levothyroxine Sodium 25 Mcg Tablet 25 Mcg PO DAILY06 Vitamin D3 (Cholecalciferol (Vitamin D3)) 50,000 Unit Capsule 50,000 Unit PO QMONTH Administer on the 15th of every Month I have reviewed the current psychotropics carefully including drug interactions. Risk benefit ratio favors no change other than as noted in my dictated progress note. Diagnosis: Problems: (1) Intellectual disability (2) Anxiety (3) Dementia (4) Impulse control disorder (5) Impulse control disorder (6) Obsessive compulsive disorder (7) Medical clearance for psychiatric admission (8) IMPULSE DISORDER, UNSPECIFIED (9) Dementia (10) DMII (diabetes mellitus, type 2) IDA LAINEZ MD Jun 01, 2018 22:22
[2018-06-02] MEDS: ACETAMINOPHEN 325 MG TABLET PO PRN ×2 (04:57→20:16)
[2018-06-02] MEDS: LEVOTHYROXINE 25 MCG TABLET. PO SCH (04:57)
[2018-06-02 06:05] VITALS: BP 131/61
[2018-06-02] MEDS: INSULIN LISPRO 300 UNITS/3 ML INSULN.PEN. SQ SCH ×3 (07:36→16:59)
[2018-06-02] MEDS: OXcarbazepine 150 MG TABLET. PO SCH ×2 (07:55→18:32)
[2018-06-02] MEDS: LACTOBACILLUS RHAMNOSUS GG 1 CAPSULE. PO SCH ×2 (07:55→20:01)
[2018-06-02] MEDS: NYSTATIN TOPICAL POWDER 15GM BOTTLE. TP SCH ×2 (07:55→20:01)
[2018-06-02] MEDS: LISINOPRIL 5 MG TABLET. PO SCH (07:55)
[2018-06-02] MEDS: PANTOPRAZOLE 40 MG TABLET. PO SCH (07:55)
[2018-06-02] MEDS: CEFPODOXIME PROXETIL 100 MG TABLET PO SCH ×2 (07:55→20:01)
[2018-06-02] MEDS: traZODone 50 MG TABLET. PO SCH ×3 (07:55→18:32)
--- NOTE | 2018-06-02 09:41 | RAD ---
Bilateral hips with pelvis. Reason for examination: Fell today with pelvic pain and bilateral hip pain. Single view of the pelvis shows no acute site of fracture. The bone density is normal. No abnormality seen at the sacrum or sacroiliac joints. There are some degenerative change at the lower lumbar spine with some disc space narrowing and some hypertrophic spurring. Proximal femur. Be intact. 2 views of each hip were obtained. Bone density is normal. No abnormal periosteal reaction is seen. Joint spaces are maintained. IMPRESSION: No acute bony abnormalities in the pelvis or at either hip. Electronically signed by: Amanda Busch MD (06/02/2018 9:38 AM) [facility]
[2018-06-02] MEDS: clonazePAM 0.5 MG TABLET PO SCH ×2 (13:34→20:01)
[2018-06-02 16:33] VITALS: BP 110/71
[2018-06-02] MEDS: INSULIN GLARGINE 300 UNITS/3 ML INSULN.PEN. SQ SCH (20:03)
[2018-06-02] MEDS: FENOFIBRATE NANOCRYSTALLIZED 48 MG TABLET PO SCH (20:20)
--- NOTE | 2018-06-02 20:58 | PDOC ---
Exam Note: Marcelo Note: Please also refer to the separate dictated note~for this date of service dictated separately.~Patient seen individually. Discussed the patient with Nursing staff reviewed the chart.~Reviewed interim history and current functioning. Reviewed vital signs,~Labs/ Radiology~and current medications noted below. Continue current treatment with the changes noted in the dictated addendum note Assessment: Vital Signs: Vital Signs Date Time Temp Pulse Resp B/P (MAP) Pulse Ox O2 Delivery O2 Flow Rate FiO2 06/02/18 16:33 97.3 84 20 110/71 (84) 100 05/31/18 16:03 Room Air I&O Intake and Output 06/02/18 07:01 Intake Total 580 ml Balance 580 ml Intake Oral 580 ml Labs: Laboratory Tests Test 06/02/18 05:05 06/02/18 05:31 06/02/18 07:25 06/02/18 11:51 Glucose (Fingerstick) 66 mg/dL (70-99) L 79 mg/dL (70-99) 127 mg/dL (70-99) H 279 mg/dL (70-99) H Test 06/02/18 16:42 06/02/18 19:10 Glucose (Fingerstick) 143 mg/dL (70-99) H 208 mg/dL (70-99) H Current Medications: Meds: Current Medications Acetaminophen (Tylenol) 650 mg PRN Q6HRS PRN PO PAIN / TEMP Last administered on 06/02/18at 20:16; Start 05/04/18 at 17:30 Multi-Ingredient Ointment (Analgesic [place]) 1 porsche PRN QID PRN TP MUSCLE PAIN; Start 05/04/18 at 17:30 Al Hydroxide/Mg Hydroxide (Mylanta Plus Xs) 15 ml PRN AFTMEALHC PRN PO DYSPEPSIA; Start 05/04/18 at 17:30 Magnesium Hydroxide (Milk Of Magnesia) 2,400 mg PRN QHS PRN PO CONSTIPATION; Start 05/04/18 at 17:30 Vitamin D (Vitamin D3) 50,000 unit QMONTH PO ; Start 06/03/18 at 09:00 Insulin Human Lispro (HumaLOG) 0-7 TIDWMEALS SQ ; Start 05/05/18 at 08:00; Stop 05/05/18 at 08:00; Status DC Nystatin (Nystop) 1 porsche BID TP Last administered on 06/02/18at 20:01; Start at 21:00 Nystatin (Nystop) 1 porsche PRN TID PRN TP RASH; Start 05/04/18 at 18:00 Fenofibrate (Tricor) 48 mg QHS PO Last administered on 06/02/18at 20:20; Start 05/04/18 at 21:00 Hydrocortisone (Proctosol-Hc) 1 porsche PRN BID PRN RC BURNING OR BLOOD IN RECTUM; Start 05/04/18 at 19:30 Lactobacillus Rhamnosus (Culturelle) 1 cap BID PO Last administered on at 20:01; Start 05/04/18 at 21:00 Levothyroxine Sodium (Synthroid) 25 mcg DAILY06 PO Last administered on at 04:57; Start 05/05/18 at 06:00 Lisinopril (Prinivil) 5 mg DAILY PO Last administered on 06/02/18at 07:55; Start 05/05/18 at 09:00 Pantoprazole Sodium (Protonix) 40 mg DAILYAC PO Last administered on 06/02/18at 07:55; Start 05/05/18 at 07:30 Clonazepam (KlonoPIN) 0.5 mg BID@1200,2100 PO Last administered on 06/02/18at 20 :01; Start 05/04/18 at 21:00 Fluvoxamine Maleate (Luvox) 100 mg QHS PO Last administered on 05/05/18at 20:07 ; Start 05/04/18 at 21:00; Stop 05/06/18 at 18:15; Status DC Quetiapine Fumarate (SEROquel) 25 mg BID PO Last administered on 05/05/18at 20: 07; Start 05/04/18 at 21:00; Stop 05/05/18 at 21:01; Status DC Trazodone HCl (Desyrel) 50 mg TIDWMEALS PO Last administered on 05/07/18at 17:52 ; Start 05/04/18 at 19:30; Stop 05/07/18 at 18:34; Status DC Insulin Human Lispro (HumaLOG) 0-7 UNITS TIDWMEALS SQ Last administered on 05/10at 09:37; Start 05/05/18 at 08:00; Stop 05/10/18 at 18:43; Status DC Insulin Human Lispro (HumaLOG) 10 units DAILY SQ Last administered on at 09:00; Start 05/06/18 at 09:00; Stop 05/14/18 at 14:30; Status DC Insulin Human Lispro (HumaLOG) 25 units NOON SQ Last administered on 05/13/18at 12:00; Start 05/05/18 at 12:00; Stop 05/14/18 at 14:30; Status DC Insulin Human Lispro (HumaLOG) 15 units 1700 SQ Last administered on 05/13/18at 17:00; Start 05/05/18 at 17:00; Stop 05/14/18 at 14:30; Status DC Insulin Glargine (Lantus) 50 units QHS SQ Last administered on 06/02/18at 20:03 ; Start 05/05/18 at 21:00 Fluvoxamine Maleate (Luvox) 125 mg QHS PO Last administered on 05/08/18at 20:40 ; Start 05/06/18 at 21:00; Stop 05/08/18 at 20:50; Status DC Fluvoxamine Maleate (Luvox) 25 mg QHS PO Last administered on 05/07/18at 21:01; Start 05/06/18 at 21:00; Stop 05/08/18 at 19:26; Status DC Trazodone HCl (Desyrel) 75 mg DAILY@0900 PO Last administered on 06/02/18at 07: 55; Start 05/08/18 at 09:00 Trazodone HCl (Desyrel) 50 mg BID@1300,1700 PO Last administered on 05/14/18at 12:25; Start 05/08/18 at 13:00; Stop 05/14/18 at 16:22; Status DC Fluvoxamine Maleate (Luvox) 75 mg QHS PO ; Start 05/08/18 at 21:00; Stop at 21:00; Status DC Fluvoxamine Maleate (Luvox) 150 mg HS PO Last administered on 06/02/18at 20:01; Start 05/08/18 at 21:00 Oxcarbazepine (Trileptal) 150 mg 0900,1700 PO Last administered on 05/13/18at 18 :22; Start 05/09/18 at 17:00; Stop 05/13/18 at 19:18; Status DC Olanzapine (ZyPREXA ZYDIS) 2.5 mg PRN Q2HR PRN PO PSYCHOSIS Last administered on 05/28/18at 19:44; Start 05/09/18 at 17:30 Oxcarbazepine (Trileptal) 300 mg 0900,1700 PO Last administered on 05/28/18at 17 :35; Start 05/14/18 at 09:00; Stop 05/28/18 at 18:51; Status DC Insulin Human Lispro (HumaLOG) 0-7 UNITS TIDWMEALS SQ Last administered on 06/02at 12:00; Start 05/14/18 at 17:00 Dextrose 12.5 gm PRN Q15MIN PRN IV SEE COMMENTS; Start 05/14/18 at 14:30 Trazodone HCl (Desyrel) 75 mg BID@1300,1700 PO Last administered on 06/02/18at 18:32; Start 05/14/18 at 17:00 Amoxicillin (Amoxil) 250 mg [id number] PO Last administered on 05/29/18at 13:55; Start 05/24/18 at 21:00; Stop 05/29/18 at 15:29; Status DC Oxcarbazepine (Trileptal) 450 mg 0900,1700 PO Last administered on 06/02/18at 18 :32; Start 05/29/18 at 09:00 Cefpodoxime Proxetil (Vantin) 200 mg BID PO Last administered on 06/02/18at 20: 01; Start 05/29/18 at 21:00; Stop 06/08/18 at 21:00 Active Scripts Active Reported Humalog (Insulin Lispro) 100 Unit/1 Ml Insuln.pen 0-7 Unit SQ TIDWMEALS BG 70-150= 0 units if eating; 0 units if not eating/HS BG 151-200= 3 units if eating; 0 units if not eating/HS BG 201-250= 4 units if eating; 2 units if not eating/HS BG 251-300= 6 units if eating; 3 units if not eating/HS BG 301-351= 7 units if eating; 4 units if not eating/HS BG >351= call provider for orders Fenofibrate (Fenofibrate Nanocrystallized) 48 Mg Tablet 48 Mg PO QHS Protonix (Pantoprazole Sodium) 40 Mg Tablet.dr 40 Mg PO DAILYAC Fluvoxamine Maleate 100 Mg Tablet 100 Mg PO HS Seroquel (Quetiapine Fumarate) 25 Mg Tablet 25 Mg PO BID Nystop (Nystatin) 60 Gm Powder 1 Porsche TP BID Lisinopril 5 Mg Tablet 5 Mg PO DAILY Nystop (Nystatin) 60 Gm Powder 1 Porsche TP PRN TID PRN Trazodone Hcl 50 Mg Tablet 50 Mg PO TIDWMEALS Clonazepam 0.5 Mg Tablet 0.5 Mg PO BID@1200,2100 Anusol-Hc (Hydrocortisone Acetate) 25 Mg Supp.rect 25 Mg RC PRN DAILY PRN Probiotic (Lactobacillus Acidophilus) 1 Each Capsule 1 Cap PO BID Levothyroxine Sodium 25 Mcg Tablet 25 Mcg PO DAILY06 Vitamin D3 (Cholecalciferol (Vitamin D3)) 50,000 Unit Capsule 50,000 Unit PO QMONTH Administer on the 15th of every Month I have reviewed the current psychotropics carefully including drug interactions. Risk benefit ratio favors no change other than as noted in my dictated progress note. Diagnosis: Problems: (1) Intellectual disability (2) Anxiety (3) Dementia (4) Impulse control disorder (5) Impulse control disorder (6) Obsessive compulsive disorder (7) Medical clearance for psychiatric admission (8) IMPULSE DISORDER, UNSPECIFIED (9) Dementia (10) DMII (diabetes mellitus, type 2) IDA LAINEZ MD Jun 02, 2018 20:58
--- NOTE | 2018-06-02 22:29 | PN ---
DATE: 05/31/2018 This late entry, 05/31/2018, covers elements not covered in my initial note. SUBJECTIVE: I met with the patient in the evening. The patient has been yelling in the evening. Rest of the day, somewhat better. REVIEW OF SYSTEMS: Ambulation impaired with walker. No CV, , pulmonary, eye, ENT system symptoms on review. MENTAL STATUS EXAM: Oriented to herself. Insight, judgment, recent and remote memory is impaired. Language function intact. Attention span short. Mood and affect remains somewhat anxious, labile, obsessive, less so than before. LABORATORY DATA: Reviewed. IMPRESSION: Bipolar 1 disorder, mixed; obsessive-compulsive disorder; anxiety disorder, unspecified; urinary tract infection. PLAN: Treat UTI. Maintain rest of the psychotropics unchanged, Luvox, Klonopin, trazodone, Trileptal. MAN Stuart LAINEZ MD DR: YO/bakari JOB#: [id number] / [id number]
[2018-06-03 06:02] VITALS: BP 129/52
[2018-06-03] MEDS: LEVOTHYROXINE 25 MCG TABLET. PO SCH (06:33)
[2018-06-03] MEDS: PANTOPRAZOLE 40 MG TABLET. PO SCH (07:37)
[2018-06-03 07:56] VITALS: BP 110/64
[2018-06-03] MEDS: INSULIN LISPRO 300 UNITS/3 ML INSULN.PEN. SQ SCH ×3 (08:00→17:23)
[2018-06-03] MEDS ORDERED: CHOLECALCIFEROL (VITAMIN D3) 50,000 UNIT CAPSULE PO SCH (09:00)
[2018-06-03] MEDS: CEFPODOXIME PROXETIL 100 MG TABLET PO SCH ×2 (09:02→19:51)
[2018-06-03] MEDS: LISINOPRIL 5 MG TABLET. PO SCH (09:03)
[2018-06-03] MEDS: LACTOBACILLUS RHAMNOSUS GG 1 CAPSULE. PO SCH ×2 (09:03→19:45)
[2018-06-03] MEDS: traZODone 50 MG TABLET. PO SCH ×3 (09:03→17:19)
[2018-06-03] MEDS: OXcarbazepine 150 MG TABLET. PO SCH ×2 (09:04→17:20)
[2018-06-03] MEDS: NYSTATIN TOPICAL POWDER 15GM BOTTLE. TP SCH ×2 (09:04→19:57)
[2018-06-03] MEDS: clonazePAM 0.5 MG TABLET PO SCH ×2 (12:18→19:51)
--- NOTE | 2018-06-03 13:41 | PN ---
DATE: 06/01/2018 PSYCHIATRIC PROGRESS NOTE This is a late entry, 06/01, covers elements not covered in my initial note. SUBJECTIVE: I met with the patient in the morning. The patient slept 4-1/4 hours previous night. REVIEW OF SYSTEMS: Ambulation impaired with walker. No CV, , pulmonary, eye, ENT system symptoms on review. Reliability poor. MENTAL STATUS EXAM: Oriented to herself and situation. Speech coherent, less pressured. Abstraction fair, computation impaired, language function intact. Attention span short. She is less obsessive, less repetitive, less following me around the unit, and seems to be responding to Vantin for UTI with improved agitation as well. LABORATORY DATA: Reviewed. IMPRESSION: Bipolar 1 disorder, mixed; intellectual disability; obsessive-compulsive disorder; urinary tract infection. Rest unchanged from initial note. PLAN: No change from initial note. We will adjust Luvox further as indicated for OCD. MAN Stuart LAINEZ MD DR: YO/bakari JOB#: [id number] / [id number]
[2018-06-03 15:50] VITALS: BP 110/75
[2018-06-03] MEDS: FENOFIBRATE NANOCRYSTALLIZED 48 MG TABLET PO SCH (19:49)
[2018-06-03] MEDS: INSULIN GLARGINE 300 UNITS/3 ML INSULN.PEN. SQ SCH (19:56)
--- NOTE | 2018-06-03 21:00 | PDOC ---
Exam Note: Marcelo Note: Please also refer to the separate dictated note~for this date of service dictated separately.~Patient seen individually. Discussed the patient with Nursing staff reviewed the chart.~Reviewed interim history and current functioning. Reviewed vital signs,~Labs/ Radiology~and current medications noted below. Continue current treatment with the changes noted in the dictated addendum note Assessment: Vital Signs: Vital Signs Date Time Temp Pulse Resp B/P (MAP) Pulse Ox O2 Delivery O2 Flow Rate FiO2 06/03/18 15:50 98.0 74 19 110/75 (87) 97 06/03/18 07:56 Room Air I&O Intake and Output 06/03/18 07:01 Intake Total 1440 ml Balance 1440 ml Intake Oral 1440 ml Labs: Laboratory Tests Test 06/03/18 07:36 06/03/18 08:05 06/03/18 11:50 06/03/18 16:41 Glucose (Fingerstick) 50 mg/dL (70-99) L 76 mg/dL (70-99) 163 mg/dL (70-99) H 185 mg/dL (70-99) H Test 06/03/18 19:02 Glucose (Fingerstick) 205 mg/dL (70-99) H Current Medications: Meds: Current Medications Acetaminophen (Tylenol) 650 mg PRN Q6HRS PRN PO PAIN / TEMP Last administered on 06/02/18at 20:16; Start 05/04/18 at 17:30 Multi-Ingredient Ointment (Analgesic [place]) 1 porsche PRN QID PRN TP MUSCLE PAIN; Start 05/04/18 at 17:30 Al Hydroxide/Mg Hydroxide (Mylanta Plus Xs) 15 ml PRN AFTMEALHC PRN PO DYSPEPSIA; Start 05/04/18 at 17:30 Magnesium Hydroxide (Milk Of Magnesia) 2,400 mg PRN QHS PRN PO CONSTIPATION; Start 05/04/18 at 17:30 Vitamin D (Vitamin D3) 50,000 unit QMONTH PO Last administered on 06/03/18at 09: 05; Start 06/03/18 at 09:00 Insulin Human Lispro (HumaLOG) 0-7 TIDWMEALS SQ ; Start 05/05/18 at 08:00; Stop 05/05/18 at 08:00; Status DC Nystatin (Nystop) 1 porsche BID TP Last administered on 06/03/18 19:57; Start at 21:00 Nystatin (Nystop) 1 porsche PRN TID PRN TP RASH; Start 05/04/18 at 18:00 Fenofibrate (Tricor) 48 mg QHS PO Last administered on 06/03/18 19:49; Start 05/04/18 at 21:00 Hydrocortisone (Proctosol-Hc) 1 porsche PRN BID PRN RC BURNING OR BLOOD IN RECTUM; Start 05/04/18 at 19:30 Lactobacillus Rhamnosus (Culturelle) 1 cap BID PO Last administered on 19:45; Start 05/04/18 at 21:00 Levothyroxine Sodium (Synthroid) 25 mcg DAILY06 PO Last administered on at 06:33; Start 05/05/18 at 06:00 Lisinopril (Prinivil) 5 mg DAILY PO Last administered on 06/03/18at 09:03; Start 05/05/18 at 09:00 Pantoprazole Sodium (Protonix) 40 mg DAILYAC PO Last administered on 06/03/18 07:37; Start 05/05/18 at 07:30 Clonazepam (KlonoPIN) 0.5 mg BID@1200,2100 PO Last administered on 06/03/18 19 :51; Start 05/04/18 at 21:00 Fluvoxamine Maleate (Luvox) 100 mg QHS PO Last administered on 05/05/18at 20:07 ; Start 05/04/18 at 21:00; Stop 05/06/18 at 18:15; Status DC Quetiapine Fumarate (SEROquel) 25 mg BID PO Last administered on 05/05/18at 20: 07; Start 05/04/18 at 21:00; Stop 05/05/18 at 21:01; Status DC Trazodone HCl (Desyrel) 50 mg TIDWMEALS PO Last administered on 05/07/18at 17:52 ; Start 05/04/18 at 19:30; Stop 05/07/18 at 18:34; Status DC Insulin Human Lispro (HumaLOG) 0-7 UNITS TIDWMEALS SQ Last administered on 05/10at 09:37; Start 05/05/18 at 08:00; Stop 05/10/18 at 18:43; Status DC Insulin Human Lispro (HumaLOG) 10 units DAILY SQ Last administered on at 09:00; Start 05/06/18 at 09:00; Stop 05/14/18 at 14:30; Status DC Insulin Human Lispro (HumaLOG) 25 units NOON SQ Last administered on 05/13/18at 12:00; Start 05/05/18 at 12:00; Stop 05/14/18 at 14:30; Status DC Insulin Human Lispro (HumaLOG) 15 units 1700 SQ Last administered on 05/13/18at 17:00; Start 05/05/18 at 17:00; Stop 05/14/18 at 14:30; Status DC Insulin Glargine (Lantus) 50 units QHS SQ Last administered on 06/03/18at 19:56 ; Start 05/05/18 at 21:00 Fluvoxamine Maleate (Luvox) 125 mg QHS PO Last administered on 05/08/18at 20:40 ; Start 05/06/18 at 21:00; Stop 05/08/18 at 20:50; Status DC Fluvoxamine Maleate (Luvox) 25 mg QHS PO Last administered on 05/07/18at 21:01; Start 05/06/18 at 21:00; Stop 05/08/18 at 19:26; Status DC Trazodone HCl (Desyrel) 75 mg DAILY@0900 PO Last administered on 06/03/18at 09: 03; Start 05/08/18 at 09:00 Trazodone HCl (Desyrel) 50 mg BID@1300,1700 PO Last administered on 05/14/18at 12:25; Start 05/08/18 at 13:00; Stop 05/14/18 at 16:22; Status DC Fluvoxamine Maleate (Luvox) 75 mg QHS PO ; Start 05/08/18 at 21:00; Stop at 21:00; Status DC Fluvoxamine Maleate (Luvox) 150 mg HS PO Last administered on 06/03/18at 19:46; Start 05/08/18 at 21:00 Oxcarbazepine (Trileptal) 150 mg 0900,1700 PO Last administered on 05/13/18at 18 :22; Start 05/09/18 at 17:00; Stop 05/13/18 at 19:18; Status DC Olanzapine (ZyPREXA ZYDIS) 2.5 mg PRN Q2HR PRN PO PSYCHOSIS Last administered on 06/03/18at 19:51; Start 05/09/18 at 17:30 Oxcarbazepine (Trileptal) 300 mg 0900,1700 PO Last administered on 05/28/18at 17 :35; Start 05/14/18 at 09:00; Stop 05/28/18 at 18:51; Status DC Insulin Human Lispro (HumaLOG) 0-7 UNITS TIDWMEALS SQ Last administered on 06/03at 17:23; Start 05/14/18 at 17:00 Dextrose 12.5 gm PRN Q15MIN PRN IV SEE COMMENTS; Start 05/14/18 at 14:30 Trazodone HCl (Desyrel) 75 mg BID@1300,1700 PO Last administered on 06/03/18at 17:19; Start 05/14/18 at 17:00 Amoxicillin (Amoxil) 250 mg MVC302 PO Last administered on 05/29/18at 13:55; Start 05/24/18 at 21:00; Stop 05/29/18 at 15:29; Status DC Oxcarbazepine (Trileptal) 450 mg 0900,1700 PO Last administered on 06/03/18at 17 :20; Start 05/29/18 at 09:00 Cefpodoxime Proxetil (Vantin) 200 mg BID PO Last administered on 06/03/18at 19: 51; Start 05/29/18 at 21:00; Stop 06/08/18 at 21:00 Active Scripts Active Reported Humalog (Insulin Lispro) 100 Unit/1 Ml Insuln.pen 0-7 Unit SQ TIDWMEALS BG 70-150= 0 units if eating; 0 units if not eating/HS BG 151-200= 3 units if eating; 0 units if not eating/HS BG 201-250= 4 units if eating; 2 units if not eating/HS BG 251-300= 6 units if eating; 3 units if not eating/HS BG 301-351= 7 units if eating; 4 units if not eating/HS BG >351= call provider for orders Fenofibrate (Fenofibrate Nanocrystallized) 48 Mg Tablet 48 Mg PO QHS Protonix (Pantoprazole Sodium) 40 Mg Tablet.dr 40 Mg PO DAILYAC Fluvoxamine Maleate 100 Mg Tablet 100 Mg PO HS Seroquel (Quetiapine Fumarate) 25 Mg Tablet 25 Mg PO BID Nystop (Nystatin) 60 Gm Powder 1 Porsche TP BID Lisinopril 5 Mg Tablet 5 Mg PO DAILY Nystop (Nystatin) 60 Gm Powder 1 Porsche TP PRN TID PRN Trazodone Hcl 50 Mg Tablet 50 Mg PO TIDWMEALS Clonazepam 0.5 Mg Tablet 0.5 Mg PO BID@1200,2100 Anusol-Hc (Hydrocortisone Acetate) 25 Mg Supp.rect 25 Mg RC PRN DAILY PRN Probiotic (Lactobacillus Acidophilus) 1 Each Capsule 1 Cap PO BID Levothyroxine Sodium 25 Mcg Tablet 25 Mcg PO DAILY06 Vitamin D3 (Cholecalciferol (Vitamin D3)) 50,000 Unit Capsule 50,000 Unit PO QMONTH Administer on the 15th of every Month I have reviewed the current psychotropics carefully including drug interactions. Risk benefit ratio favors no change other than as noted in my dictated progress note. Diagnosis: Problems: (1) Intellectual disability (2) Anxiety (3) Dementia (4) Impulse control disorder (5) Impulse control disorder (6) Obsessive compulsive disorder (7) Medical clearance for psychiatric admission (8) IMPULSE DISORDER, UNSPECIFIED (9) Dementia (10) DMII (diabetes mellitus, type 2) IDA LAINEZ MD Jun 03, 2018 21:00
--- NOTE | 2018-06-03 23:31 | PN ---
DATE: 06/02/2018 PSYCHIATRIC PROGRESS NOTE This is a late entry, 06/02, covers elements not covered in my initial note. SUBJECTIVE: I met with the patient in the morning. The patient slept 4-1/4 hours previous night. She has had less yelling, less obsessive. Not following me around the unit, which is quite an improvement. REVIEW OF SYSTEMS: Ambulation impaired with walker. No CV, , pulmonary, eye, ENT system symptoms on review. MENTAL STATUS EXAM: Oriented to herself and situation. Speech coherent, less pressured. Abstraction fair, computation impaired, language function intact, attention span short. Mood and affect, lability is improved. LABORATORY DATA: Reviewed. IMPRESSION: Unchanged from initial note. PLAN: No change from initial note. Treat the UTI. Maintain psychotropics as noted in my initial note, may need to increase Luvox if OCD symptoms resurface. MAN Stuart LAINEZ MD DR: YO/bakari JOB#: [id number] / [id number]
[2018-06-04] MEDS: LEVOTHYROXINE 25 MCG TABLET. PO SCH (05:56)
[2018-06-04 06:05] VITALS: BP 118/55
[2018-06-04] MEDS: INSULIN LISPRO 300 UNITS/3 ML INSULN.PEN. SQ SCH ×4 (08:40→17:13)
[2018-06-04] MEDS: PANTOPRAZOLE 40 MG TABLET. PO SCH (09:39)
[2018-06-04] MEDS: LACTOBACILLUS RHAMNOSUS GG 1 CAPSULE. PO SCH ×2 (09:40→19:18)
[2018-06-04] MEDS: traZODone 50 MG TABLET. PO SCH ×3 (09:43→17:08)
[2018-06-04] MEDS: OXcarbazepine 150 MG TABLET. PO SCH ×2 (09:43→17:09)
[2018-06-04] MEDS: LISINOPRIL 5 MG TABLET. PO SCH (09:44)
[2018-06-04] MEDS: NYSTATIN TOPICAL POWDER 15GM BOTTLE. TP SCH ×2 (09:47→19:22)
[2018-06-04] MEDS: CEFPODOXIME PROXETIL 100 MG TABLET PO SCH ×2 (10:05→19:18)
[2018-06-04] MEDS: clonazePAM 0.5 MG TABLET PO SCH ×2 (14:08→19:23)
[2018-06-04 16:02] VITALS: BP 108/63
[2018-06-04] MEDS: FENOFIBRATE NANOCRYSTALLIZED 48 MG TABLET PO SCH (19:21)
[2018-06-04] MEDS: INSULIN GLARGINE 300 UNITS/3 ML INSULN.PEN. SQ SCH (19:22)
[2018-06-04 19:52] LABS: BASO # 0.1 x10^3/uL (0.0-0.2); BASO % 1 % (0-3); EOS # 0.3 x10^3/uL (0.0-0.7); EOS % 4 % (0-3); HEMATOCRIT 37.3 % (36.0-47.0); HEMOGLOBIN 12.7 g/dL (12.0-15.5); LYMPH # 2.7 x10^3/uL (1.0-4.8); LYMPH % 34 % (24-48); MEAN CORPUSCULAR HEMOGLOBIN 31 pg (25-35); MEAN CORPUSCULAR HGB CONC 34 g/dL (31-37); MEAN CORPUSCULAR VOLUME 91 fL (79-100); MONO # 0.5 x10^3/uL (0.0-1.1); MONO % 7 % (0-9); NEUT # 4.5 x10^3uL (1.8-7.7); NEUT % 55 % (31-73); PLATELET COUNT 147 x10^3/uL (140-400); RED BLOOD COUNT 4.09 x10^6/uL (3.50-5.40); RED CELL DISTRIBUTION WIDTH 15.2 % (11.5-14.5); WHITE BLOOD COUNT 8.2 x10^3/uL (4.0-11.0)
[2018-06-04 20:03] LABS: ALBUMIN 3.6 g/dL (3.4-5.0); ALBUMIN/GLOBULIN RATIO 0.9 (1.0-1.7); CALCIUM 9.4 mg/dL (8.5-10.1); CREATININE 0.8 mg/dL (0.6-1.0); GFR 70.7; POTASSIUM 4.2 mmol/L (3.5-5.1); TOTAL BILIRUBIN 0.4 mg/dL (0.2-1.0); TOTAL PROTEIN 7.5 g/dL (6.4-8.2)
--- NOTE | 2018-06-04 20:54 | PDOC ---
Exam Note: Marcelo Note: Please also refer to the separate dictated note~for this date of service dictated separately.~Patient seen individually. Discussed the patient with Nursing staff reviewed the chart.~Reviewed interim history and current functioning. Reviewed vital signs,~Labs/ Radiology~and current medications noted below. Continue current treatment with the changes noted in the dictated addendum note Assessment: Vital Signs: Vital Signs Date Time Temp Pulse Resp B/P (MAP) Pulse Ox O2 Delivery O2 Flow Rate FiO2 06/04/18 16:02 97.9 68 16 108/63 (78) 99 06/03/18 07:56 Room Air I&O Intake and Output 06/04/18 07:00 Intake Total 1680 ml Balance 1680 ml Intake Oral 1680 ml # Voids 2 # Bowel Movements 1 Labs: Laboratory Tests Test 06/04/18 07:18 06/04/18 11:37 06/04/18 17:01 06/04/18 19:24 Glucose (Fingerstick) 109 mg/dL (70-99) H 177 mg/dL (70-99) H 160 mg/dL (70-99) H 160 mg/dL (70-99) H Test 06/04/18 19:35 White Blood Count 8.2 x10^3/uL (4.0-11.0) Red Blood Count 4.09 x10^6/uL (3.50-5.40) Hemoglobin 12.7 g/dL (12.0-15.5) Hematocrit 37.3 % (36.0-47.0) Mean Corpuscular Volume 91 fL (79-100) Mean Corpuscular Hemoglobin 31 pg (25-35) Mean Corpuscular Hemoglobin Concent 34 g/dL (31-37) Red Cell Distribution Width 15.2 % (11.5-14.5) H Platelet Count 147 x10^3/uL (140-400) Neutrophils (%) (Auto) 55 % (31-73) Lymphocytes (%) (Auto) 34 % (24-48) Monocytes (%) (Auto) 7 % (0-9) Eosinophils (%) (Auto) 4 % (0-3) H Basophils (%) (Auto) 1 % (0-3) Neutrophils # (Auto) 4.5 x10^3uL (1.8-7.7) Lymphocytes # (Auto) 2.7 x10^3/uL (1.0-4.8) Monocytes # (Auto) 0.5 x10^3/uL (0.0-1.1) Eosinophils # (Auto) 0.3 x10^3/uL (0.0-0.7) Basophils # (Auto) 0.1 x10^3/uL (0.0-0.2) Sodium Level 142 mmol/L (136-145) Potassium Level 4.2 mmol/L (3.5-5.1) Chloride Level 104 mmol/L (98-107) Carbon Dioxide Level 29 mmol/L (21-32) Anion Gap 9 (6-14) Blood Urea Nitrogen 18 mg/dL (7-20) Creatinine 0.8 mg/dL (0.6-1.0) Estimated GFR (Cockcroft-Gault) 70.7 BUN/Creatinine Ratio 23 (6-20) H Glucose Level 178 mg/dL (70-99) H Calcium Level 9.4 mg/dL (8.5-10.1) Total Bilirubin 0.4 mg/dL (0.2-1.0) Aspartate Amino Transferase (AST) 21 U/L (15-37) Alanine Aminotransferase (ALT) 23 U/L (14-59) Alkaline Phosphatase 75 U/L (46-116) Total Protein 7.5 g/dL (6.4-8.2) Albumin 3.6 g/dL (3.4-5.0) Albumin/Globulin Ratio 0.9 (1.0-1.7) L Current Medications: Meds: Current Medications Acetaminophen (Tylenol) 650 mg PRN Q6HRS PRN PO PAIN / TEMP Last administered on 06/02/18at 20:16; Start 05/04/18 at 17:30 Multi-Ingredient Ointment (Analgesic Lolita) 1 porsche PRN QID PRN TP MUSCLE PAIN; Start 05/04/18 at 17:30 Al Hydroxide/Mg Hydroxide (Mylanta Plus Xs) 15 ml PRN AFTMEALHC PRN PO DYSPEPSIA; Start 05/04/18 at 17:30 Magnesium Hydroxide (Milk Of Magnesia) 2,400 mg PRN QHS PRN PO CONSTIPATION; Start 05/04/18 at 17:30 Vitamin D (Vitamin D3) 50,000 unit QMONTH PO Last administered on 06/03/18at 09: 05; Start 06/03/18 at 09:00 Insulin Human Lispro (HumaLOG) 0-7 TIDWMEALS SQ ; Start 05/05/18 at 08:00; Stop 05/05/18 at 08:00; Status DC Nystatin (Nystop) 1 porsche BID TP Last administered on 06/04/18at 19:22; Start at 21:00 Nystatin (Nystop) 1 porsche PRN TID PRN TP RASH; Start 05/04/18 at 18:00 Fenofibrate (Tricor) 48 mg QHS PO Last administered on 06/04/18at 19:21; Start 05/04/18 at 21:00 Hydrocortisone (Proctosol-Hc) 1 porsche PRN BID PRN RC BURNING OR BLOOD IN RECTUM; Start 05/04/18 at 19:30 Lactobacillus Rhamnosus (Culturelle) 1 cap BID PO Last administered on at 19:18; Start 05/04/18 at 21:00 Levothyroxine Sodium (Synthroid) 25 mcg DAILY06 PO Last administered on at 05:56; Start 05/05/18 at 06:00 Lisinopril (Prinivil) 5 mg DAILY PO Last administered on 06/04/18at 09:44; Start 05/05/18 at 09:00 Pantoprazole Sodium (Protonix) 40 mg DAILYAC PO Last administered on 06/04/18at 09:39; Start 05/05/18 at 07:30 Clonazepam (KlonoPIN) 0.5 mg BID@1200,2100 PO Last administered on 06/04/18at 19 :23; Start 05/04/18 at 21:00 Fluvoxamine Maleate (Luvox) 100 mg QHS PO Last administered on 05/05/18at 20:07 ; Start 05/04/18 at 21:00; Stop 05/06/18 at 18:15; Status DC Quetiapine Fumarate (SEROquel) 25 mg BID PO Last administered on 05/05/18at 20: 07; Start 05/04/18 at 21:00; Stop 05/05/18 at 21:01; Status DC Trazodone HCl (Desyrel) 50 mg TIDWMEALS PO Last administered on 05/07/18at 17:52 ; Start 05/04/18 at 19:30; Stop 05/07/18 at 18:34; Status DC Insulin Human Lispro (HumaLOG) 0-7 UNITS TIDWMEALS SQ Last administered on 05/10at 09:37; Start 05/05/18 at 08:00; Stop 05/10/18 at 18:43; Status DC Insulin Human Lispro (HumaLOG) 10 units DAILY SQ Last administered on at 09:00; Start 05/06/18 at 09:00; Stop 05/14/18 at 14:30; Status DC Insulin Human Lispro (HumaLOG) 25 units NOON SQ Last administered on 05/13/18at 12:00; Start 05/05/18 at 12:00; Stop 05/14/18 at 14:30; Status DC Insulin Human Lispro (HumaLOG) 15 units 1700 SQ Last administered on 05/13/18at 17:00; Start 05/05/18 at 17:00; Stop 05/14/18 at 14:30; Status DC Insulin Glargine (Lantus) 50 units QHS SQ Last administered on 06/04/18at 19:22 ; Start 05/05/18 at 21:00 Fluvoxamine Maleate (Luvox) 125 mg QHS PO Last administered on 05/08/18at 20:40 ; Start 05/06/18 at 21:00; Stop 05/08/18 at 20:50; Status DC Fluvoxamine Maleate (Luvox) 25 mg QHS PO Last administered on 05/07/18at 21:01; Start 05/06/18 at 21:00; Stop 05/08/18 at 19:26; Status DC Trazodone HCl (Desyrel) 75 mg DAILY@0900 PO Last administered on 06/04/18at 09: 43; Start 05/08/18 at 09:00 Trazodone HCl (Desyrel) 50 mg BID@1300,1700 PO Last administered on 05/14/18at 12:25; Start 05/08/18 at 13:00; Stop 05/14/18 at 16:22; Status DC Fluvoxamine Maleate (Luvox) 75 mg QHS PO ; Start 05/08/18 at 21:00; Stop at 21:00; Status DC Fluvoxamine Maleate (Luvox) 150 mg HS PO Last administered on 06/04/18at 19:18; Start 05/08/18 at 21:00 Oxcarbazepine (Trileptal) 150 mg 0900,1700 PO Last administered on 05/13/18at 18 :22; Start 05/09/18 at 17:00; Stop 05/13/18 at 19:18; Status DC Olanzapine (ZyPREXA ZYDIS) 2.5 mg PRN Q2HR PRN PO PSYCHOSIS Last administered on 06/04/18at 19:21; Start 05/09/18 at 17:30 Oxcarbazepine (Trileptal) 300 mg 0900,1700 PO Last administered on 05/28/18at 17 :35; Start 05/14/18 at 09:00; Stop 05/28/18 at 18:51; Status DC Insulin Human Lispro (HumaLOG) 0-7 UNITS TIDWMEALS SQ Last administered on 06/04at 17:13; Start 05/14/18 at 17:00 Dextrose 12.5 gm PRN Q15MIN PRN IV SEE COMMENTS; Start 05/14/18 at 14:30 Trazodone HCl (Desyrel) 75 mg BID@1300,1700 PO Last administered on 06/04/18at 17:08; Start 05/14/18 at 17:00 Amoxicillin (Amoxil) 250 mg [id number] PO Last administered on 05/29/18at 13:55; Start 05/24/18 at 21:00; Stop 05/29/18 at 15:29; Status DC Oxcarbazepine (Trileptal) 450 mg 0900,1700 PO Last administered on 06/04/18at 17 :09; Start 05/29/18 at 09:00 Cefpodoxime Proxetil (Vantin) 200 mg BID PO Last administered on 06/04/18at 19: 18; Start 05/29/18 at 21:00; Stop 06/08/18 at 21:00 Active Scripts Active Reported Humalog (Insulin Lispro) 100 Unit/1 Ml Insuln.pen 0-7 Unit SQ TIDWMEALS BG 70-150= 0 units if eating; 0 units if not eating/HS BG 151-200= 3 units if eating; 0 units if not eating/HS BG 201-250= 4 units if eating; 2 units if not eating/HS BG 251-300= 6 units if eating; 3 units if not eating/HS BG 301-351= 7 units if eating; 4 units if not eating/HS BG >351= call provider for orders Fenofibrate (Fenofibrate Nanocrystallized) 48 Mg Tablet 48 Mg PO QHS Protonix (Pantoprazole Sodium) 40 Mg Tablet.dr 40 Mg PO DAILYAC Fluvoxamine Maleate 100 Mg Tablet 100 Mg PO HS Seroquel (Quetiapine Fumarate) 25 Mg Tablet 25 Mg PO BID Nystop (Nystatin) 60 Gm Powder 1 Porsche TP BID Lisinopril 5 Mg Tablet 5 Mg PO DAILY Nystop (Nystatin) 60 Gm Powder 1 Porsche TP PRN TID PRN Trazodone Hcl 50 Mg Tablet 50 Mg PO TIDWMEALS Clonazepam 0.5 Mg Tablet 0.5 Mg PO BID@1200,2100 Anusol-Hc (Hydrocortisone Acetate) 25 Mg Supp.rect 25 Mg RC PRN DAILY PRN Probiotic (Lactobacillus Acidophilus) 1 Each Capsule 1 Cap PO BID Levothyroxine Sodium 25 Mcg Tablet 25 Mcg PO DAILY06 Vitamin D3 (Cholecalciferol (Vitamin D3)) 50,000 Unit Capsule 50,000 Unit PO QMONTH Administer on the 15th of every Month I have reviewed the current psychotropics carefully including drug interactions. Risk benefit ratio favors no change other than as noted in my dictated progress note. Diagnosis: Problems: (1) Intellectual disability (2) Anxiety (3) Dementia (4) Impulse control disorder (5) Impulse control disorder (6) Obsessive compulsive disorder (7) Medical clearance for psychiatric admission (8) IMPULSE DISORDER, UNSPECIFIED (9) Dementia (10) DMII (diabetes mellitus, type 2) IDA LAINEZ MD Jun 04, 2018 20:54
--- NOTE | 2018-06-05 02:24 | PN ---
DATE: 06/03/2018 PSYCHIATRIC PROGRESS NOTE This is a late entry 06/03/2018 covers elements not covered in my initial note. SUBJECTIVE: I met with the patient in the evening. The patient slept 5-1/4 hours previous evening, smiling, pleasant, cooperative, compliant most of the day, had a good shower with Giselle, nursing staff. REVIEW OF SYSTEMS: Ambulation impaired with walker. No CV, , pulmonary, eye, ENT system symptoms on review, still somewhat obsessive, repetitive in her request for discharge. MENTAL STATUS EXAM: Oriented to herself and situation. Speech otherwise coherent. Abstraction fair, computation impaired, language function intact. Mood and affect somewhat labile, but less anxious than before. LABORATORY DATA: Reviewed. IMPRESSION: Bipolar 1 disorder, mixed, obsessive compulsive disorder, intellectual disability, urinary tract infection. PLAN: Treat UTI. Continue rest of the psychotropics unchanged as noted in the initial note. IDA LAINEZ MD DR: YO/bakari JOB#: [id number] / [id number]
[2018-06-05 05:39] VITALS: BP 98/48
[2018-06-05] MEDS: LEVOTHYROXINE 25 MCG TABLET. PO SCH (06:00)
[2018-06-05] MEDS: LACTOBACILLUS RHAMNOSUS GG 1 CAPSULE. PO SCH (07:32)
[2018-06-05] MEDS: OXcarbazepine 150 MG TABLET. PO SCH (07:35)
[2018-06-05 07:36] VITALS: BP 98/48
[2018-06-05] MEDS: LISINOPRIL 5 MG TABLET. PO SCH (07:36)
[2018-06-05] MEDS: CEFPODOXIME PROXETIL 100 MG TABLET PO SCH (07:36)
[2018-06-05] MEDS: traZODone 50 MG TABLET. PO SCH ×2 (07:36→12:43)
[2018-06-05] MEDS: PANTOPRAZOLE 40 MG TABLET. PO SCH (07:36)
[2018-06-05] MEDS: INSULIN LISPRO 300 UNITS/3 ML INSULN.PEN. SQ SCH ×2 (07:44→12:18)
[2018-06-05] MEDS: NYSTATIN TOPICAL POWDER 15GM BOTTLE. TP SCH (07:44)
[2018-06-05] MEDS ORDERED: ACET325T9 PO (10:56)
[2018-06-05] MEDS ORDERED: CEFP200T PO (10:57)
[2018-06-05] MEDS ORDERED: INSU100I13 SQ (10:58)
[2018-06-05] MEDS ORDERED: MAG30ORA2 PO (10:59)
[2018-06-05] MEDS ORDERED: MAGN2400 PO (11:00)
[2018-06-05] MEDS ORDERED: METH29OI TP (11:01)
[2018-06-05] MEDS ORDERED: OLAN2.5T3 PO (11:02)
[2018-06-05] MEDS ORDERED: OXCA300T3 PO (11:04)
[2018-06-05] MEDS: clonazePAM 0.5 MG TABLET PO SCH (12:43)
--- NOTE | 2018-06-05 23:19 | PN ---
DATE: 06/04/2018 PSYCHIATRIC PROGRESS NOTE This late entry 06/04/2018 covers elements not covered in my initial note. SUBJECTIVE: Met with the patient in the evening. The patient slept 3-1/2 hours previous evening, was yelling, calling names previous night, irritable up until 1:00 a.m., received Zyprexa Zydis, then did better. She had a hard time when she woke up for breakfast, has been napping off and on during the day. By the time I met her in the evening, she was calmer. REVIEW OF SYSTEMS: Ambulation is impaired with walker. No CV, , pulmonary, eye, ENT system symptoms on review, still somewhat obsessive regarding discharge and repeating things, but much less than before, especially since UTI is being treated. MENTAL STATUS EXAM: Oriented to herself, situations. Speech is coherent, less pressured. Other than above abstraction, fair computation, unable to do serial 7 remembered 03 objects at 3 minutes. No suicidal or homicidal ideation. Attention span short. Language function intact. Intellect consistent with her diagnosis of intellectual disability. IMPRESSION: Bipolar 1 disorder mixed with psychotic features, urinary tract infection, intellectual disability, anxiety disorder, unspecified; obsessive compulsive disorder symptoms; impulse control disorder, unspecified. PLAN: Treat the UTI. Continue rest psychotropics per initial note. IDA LAINEZ MD DR: YO/bakari JOB#: [id number] / [id number]
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
== END 2018-06-05 13:30 | DRG 885 ==
LOC: GEROPSY 17:09
PROVIDERS: ADMIT Psychiatry & Neurology Psychiatry; ATTEND Psychiatry & Neurology Psychiatry
DX: F31.64 Bipolar disorder, current episode mixed, severe, with psychotic features (principal); N39.0 Urinary tract infection, site not specified; E11.9 Type 2 diabetes mellitus without complications; F42.9 Obsessive-compulsive disorder, unspecified; E03.9 Hypothyroidism, unspecified; E78.5 Hyperlipidemia, unspecified; F03.90 Unspecified dementia, unspecified severity, without behavioral disturbance, psychotic disturbance, mood disturbance, and anxiety; F41.1 Generalized anxiety disorder; F63.9 Impulse disorder, unspecified; F79 Unspecified intellectual disabilities; I10 Essential (primary) hypertension; K21.9 Gastro-esophageal reflux disease without esophagitis; L40.9 Psoriasis, unspecified; Z79.4 Long term (current) use of insulin; Z79.899 Other long term (current) drug therapy
CPT/HCPCS: 36415; 73521; 80053; 80061; 81001; 82947; 83036; 83540; 83550; 84436; 84443; 84480; 85025; 87086; 87186; J1815

== ENCOUNTER 2020-11-03 18:45 | Inpatient (IN) | payer MEDICARE, OTHER ==
[~2020-11-03] VITALS: Ht 152.4 cm; Wt 77.3 kg
[~2020-11-03 18:45] MED LIST changes: -ALEN70TA5 PO; +ALEN70TA71 PO; -CALC500T13 PO; +CALC500T14 PO; +CEFP200T PO; -CHOL20002 PO; +CHOL200059 PO; -CLON0.5T11 PO; +CLON0.5T4 PO; -DIVA125C PO; +DIVA125C2 PO; -FENO48TA2 PO; +FENO48TA3 PO; +INSU100I13 SQ; +KETO200T11 PO; -LISI-338 PO; +LISI-517 PO; +LORA0.5T21 PO; -LORA0.5T96 PO; +MAGN24003 PO; +METH28OI2 TP; +MULT-445 PO; -MULT1TAB52 PO; +OLAN2.5T3 PO; +OMEP20CA16 PO; -OMEP20CA9 PO; -OXCA300T PO; +OXCA300T19 PO; +OXCA300T3 PO; +TRAZ-120 PO; -TRAZ-85 PO; -[UNRECOGNIZED DRUG - CODE] PO
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
[2020-11-03 23:15] VITALS: BP 125/78
[2020-11-03] MEDS ORDERED: METHYL SALICYLATE/MENTHOL TOPICAL OINTMENT 57GM TUBE. TP PRN (23:15)
[2020-11-03] MEDS ORDERED: MAGNESIUM HYDROXIDE 2,400 MG/30 ML ORAL.SUSP. PO PRN (23:15)
[2020-11-03] MEDS ORDERED: ACETAMINOPHEN 325 MG TABLET PO PRN (23:15)
[2020-11-04] MEDS ORDERED: INSU100V31 SQ (00:40)
[2020-11-04] MEDS ORDERED: MENT71OI TP (00:40)
[2020-11-04] MEDS ORDERED: TRAZ-125 PO (00:40)
[2020-11-04] MEDS ORDERED: POLY17PO5 PO (00:40)
[2020-11-04] MEDS ORDERED: HYDR25CA75 PO (00:40)
[2020-11-04] MEDS ORDERED: FENO160T PO (00:40)
[2020-11-04] MEDS ORDERED: MELA3TAB4 PO (00:40)
[2020-11-04] MEDS ORDERED: ERGO500027 PO (00:40)
[2020-11-04] MEDS ORDERED: ESCITALOPRAM OX20 MG PO (00:40)
[2020-11-04] MEDS ORDERED: QUET100T4 PO (00:40)
[2020-11-04] MEDS ORDERED: ASPI-630 PO (00:40)
[2020-11-04] MEDS ORDERED: ACET325T21 PO (00:40)
[2020-11-04] MEDS ORDERED: GUAN1TAB PO (00:40)
[2020-11-04] MEDS ORDERED: QUET25TA5 PO (00:40)
[2020-11-04] MEDS ORDERED: NYSTATIN TOPICAL POWDER 15GM BOTTLE. TP PRN (00:45)
[2020-11-04 06:21] VITALS: BP 158/84
[2020-11-04 06:21] LABS: BASO # 0.1 x10^3/uL (0.0-0.2); BASO % 1 % (0-3); EOS # 0.3 x10^3/uL (0.0-0.7); EOS % 5 % (0-3); HEMATOCRIT 38.6 % (36.0-47.0); HEMOGLOBIN 12.7 g/dL (12.0-15.5); LYMPH # 2.7 x10^3/uL (1.0-4.8); LYMPH % 38 % (24-48); MEAN CORPUSCULAR HEMOGLOBIN 30 pg (25-35); MEAN CORPUSCULAR HGB CONC 33 g/dL (31-37); MEAN CORPUSCULAR VOLUME 90 fL (79-100); MONO # 0.4 x10^3/uL (0.0-1.1); MONO % 6 % (0-9); NEUT # 3.5 x10^3uL (1.8-7.7); NEUT % 50 % (31-73); PLATELET COUNT 133 x10^3/uL (140-400); RED BLOOD COUNT 4.31 x10^6/uL (3.50-5.40); RED CELL DISTRIBUTION WIDTH 13.3 % (11.5-14.5)
[2020-11-04] MEDS: LEVOTHYROXINE 25 MCG TABLET. PO SCH (06:23)
[2020-11-04 06:27] LABS: ALBUMIN 3.4 g/dL (3.4-5.0); ALBUMIN/GLOBULIN RATIO 0.9 (1.0-1.7); CALCIUM 8.6 mg/dL (8.5-10.1); CREATININE 0.9 mg/dL (0.6-1.0); GFR 61.2; MAGNESIUM 1.9 mg/dL (1.8-2.4); POTASSIUM 3.6 mmol/L (3.5-5.1); TOTAL BILIRUBIN 0.3 mg/dL (0.2-1.0); TOTAL PROTEIN 7.2 g/dL (6.4-8.2)
[2020-11-04 07:07] LABS: BACTERIA,URINE MANY /HPF (0-FEW); BILIRUBIN,URINE NEG (NEG); CLARITY,URINE CLOUDY; COLOR,URINE YELLOW; GLUCOSE,URINE >=1000 mg/dL (NEG); NITRITE,URINE NEG (NEG); SQUAMOUS EPITHELIAL CELL,UR FEW /LPF; UROBILINOGEN,URINE 0.2 mg/dL (0.2 mg/dL); WBC,URINE >40 /HPF (0-4)
[2020-11-04] MEDS ORDERED: INSULIN ASPART 9 UNIT SQ SCH (08:00)
[2020-11-04] MEDS: PANTOPRAZOLE 40 MG TABLET. PO SCH (08:27)
[2020-11-04] MEDS: POLYETHYLENE GLYCOL 3350 17 GM PACKET. PO SCH (08:27)
[2020-11-04] MEDS: QUEtiapine 25 MG TABLET. PO SCH ×2 (08:28→20:58)
[2020-11-04] MEDS: FENOFIBRATE NANOCRYSTALLIZED 145 MG TABLET PO SCH (08:28)
[2020-11-04] MEDS: CITALOPRAM 20 MG TABLET. PO SCH (08:28)
[2020-11-04] MEDS: ASPIRIN CHEWABLE 81 MG TABLET. PO SCH (08:28)
[2020-11-04] MEDS: QUEtiapine 100 MG TABLET. PO SCH ×3 (08:28→20:58)
[2020-11-04] MEDS ORDERED: MENTHOL TP SCH (09:00)
[2020-11-04] MEDS: GUANFACINE HCL PO SCH ×2 (09:00→20:59)
[2020-11-04] MEDS ORDERED: ZINC OXIDE TP SCH (09:00)
[2020-11-04] MEDS ORDERED: NON FORMULARY ITEM (Ergocalciferol (Vitamin D2) (Vitamin D2) 1,250 MCG) PO SCH (09:00)
[2020-11-04] MEDS: INSULIN LISPRO 300 UNITS/3 ML VIAL. SQ SCH ×3 (10:07→17:16)
--- NOTE | 2020-11-04 12:51 | CONS ---
DATE OF CONSULTATION: 11/04/2020 ATTENDING PHYSICIAN: Dr. Marvin. REASON FOR CONSULTATION: We are asked to see this patient for medical consultation. HISTORY OF PRESENT ILLNESS: The patient is a 75-year-old female, current resident of [facility]. She has significant psychiatric issues including bipolar disorder, affective disorder, intellectual disability, impulse control and dementia. She is very obsessive compulsive. She is admitted here for aggressive behavior, acting out and being belligerent towards other residents. PAST MEDICAL HISTORY: Also significant for insulin-dependent diabetes, gastroesophageal reflux disease, and hypothyroidism in addition to her dementia. ALLERGIES: She has no recorded drug allergies. CURRENT MEDICINES: Include Tylenol, aspirin, vitamin D2, Lexapro 20 mg daily, fenofibrate, guaifenesin, hydroxyzine, regular insulin and Lantus, Synthroid, melatonin, nystatin, Protonix, MiraLax, Seroquel, and trazodone. SOCIAL HISTORY: She is a nonsmoker, nondrinker. FAMILY HISTORY: Unobtainable. REVIEW OF SYSTEMS: Unobtainable. She is demented, agitated. She has no concept as to why she is here. She wants to go home. PHYSICAL EXAMINATION: GENERAL: When I saw her, this is a demented female, requiring constant monitoring. INITIAL VITAL SIGNS: Showed a blood pressure of 158/84 mmHg, temperature is 97.2 degrees Fahrenheit, her pulse is 78 and regular and her oxygen saturations are 97% on room air. HEENT: The head is without trauma. Pupils are reactive. Sclerae are nonicteric. The oropharynx is clear. NECK: Supple. There are no bruits or stridor. LUNGS: Otherwise clear to auscultation. CARDIOVASCULAR: Showed regular heart tones. No gallops. ABDOMEN: Soft, scaphoid, nontender. No organomegaly. Bowel sounds are hypoactive. EXTREMITIES: Showed mild degenerative arthritis of both knees. There is no edema. NEUROLOGIC: Focally intact. She is fully ambulatory without any gait disorder. Her mentation, she is not aware of place or time. SKIN: Otherwise warm and dry. PERTINENT LABORATORY STUDIES: Her admission hemoglobin was 12.7 g/dL with a white count of 7000. Her electrolytes showed normal BUN and creatinine and electrolytes. Nonfasting blood sugar was 223. Transaminases were all within normal range. ASSESSMENT: 1. This 75-year-old female from [facility] has profound dementia. 2. Bipolar disorder with intellectual disability. 3. Underlying schizoaffective disorder. 4. Hypothyroidism. 5. Type 2 diabetes mellitus. 6. Degenerative arthritis. RECOMMENDATIONS: 1. I reviewed her home meds. We should continue this with the same dosage. 2. We should gladly follow along during her inpatient course. Thank you again for asking me to see this patient for medical consultation. ANMOL CALVO MD DR: DENISSE/bakari JOB#: [id number] / [id number]
--- NOTE | 2020-11-04 13:05 | NUR ---
Nursing note: Pt hollering out for help at time of AM med pass and assessment. She was redirected at that time, as she is able to do everything for herself. Pt was compliant with meds whole with no difficulty and was cooperative with her assessment. Pt is very social and prefers to have someone with her to converse with. When pt is left alone, she consistently asks to call "Ricky" or will call out for help. Pt is easily redirected, but very forgetful. She is currently sitting in the jhaveri socializing with peers. Will continue to monitor.
[2020-11-04 13:10] LABS: THYROXINE 7.5 ug/dL (4.5-12.0)
--- NOTE | 2020-11-04 13:10 | NUR ---
ACTIVITY THERAPY ASSESSMENT completed based on notes, observation and interview. Pt was asleep, sitting in chair in the hallway. AT woke up pt and she was compliant when asked questions. Pt was calm and pleasant during the time of assessment. Pt said that she likes to do everything for leisure activities. Pt said that she was not nor did she have any children. Per notes pt has a . Pt is unaware of her location, hospital or what year it is.Pt was able to identify her birthday and year. Pt said that she enjoys doing anything with her family and friends. Pt reports no stress during the time of assessment.Pt said she is unaware of how she min with stress. Pt said that she came from a facility prior to her admission. A UA has been sent to lab for pt. Per observation pt hyperfixates and is hyperverbal at times. Pt is loud while in attendance of groups which can lead to distractions. Pt did fall asleep during group session and interview. Initial goal aimed to increase time management and socialization skills. Pt will participate in at least five individual or group Activity Therapy sessions per week.
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
[2020-11-04 14:24] LABS: THYROID STIM HORMONE (TSH) 2.159 uIU/mL (0.358-3.740)
[2020-11-04 16:15] VITALS: BP 117/61
[2020-11-04] MEDS: traZODone 100 MG TABLET. PO SCH (20:58)
[2020-11-04] MEDS: MELATONIN 3 MG TABLET PO SCH (20:58)
[2020-11-04] MEDS ORDERED: INSULIN GLARGINE HUM REC ANLOG 20 UNIT SQ SCH (21:00)
[2020-11-04] MEDS: INSULIN GLARGINE SYRINGE. SQ SCH (21:00)
--- NOTE | 2020-11-04 21:02 | PDOC ---
Exam Note: Marcelo Note: Please also refer to the separate dictated note~for this date of service dictated separately.~Patient seen individually. Discussed the patient with Nursing staff reviewed the chart.~Reviewed interim history and current functioning. Reviewed vital signs,~Labs/ Radiology~and current medications noted below. Continue current treatment with the changes noted in the dictated addendum note Assessment: Vital Signs/I&O: Vital Signs Date Time Temp Pulse Resp B/P (MAP) Pulse Ox O2 Delivery O2 Flow Rate FiO2 11/04/20 16:15 97.5 74 16 117/61 (79) 97 11/04/20 06:21 Room Air I & O 11/03/20 11/03/20 11/04/20 14:59 22:59 06:59 Intake Total 0 ml Balance 0 ml Labs: Laboratory Tests Test 11/03/20 23:11 11/04/20 05:54 11/04/20 06:00 11/04/20 07:45 Glucose (Fingerstick) 292 mg/dL (70-99) H 223 mg/dL (70-99) H White Blood Count 7.0 x10^3/uL (4.0-11.0) Red Blood Count 4.31 x10^6/uL (3.50-5.40) Hemoglobin 12.7 g/dL (12.0-15.5) Hematocrit 38.6 % (36.0-47.0) Mean Corpuscular Volume 90 fL (79-100) Mean Corpuscular Hemoglobin 30 pg (25-35) Mean Corpuscular Hemoglobin Concent 33 g/dL (31-37) Red Cell Distribution Width 13.3 % (11.5-14.5) Platelet Count 133 x10^3/uL (140-400) L Neutrophils (%) (Auto) 50 % (31-73) Lymphocytes (%) (Auto) 38 % (24-48) Monocytes (%) (Auto) 6 % (0-9) Eosinophils (%) (Auto) 5 % (0-3) H Basophils (%) (Auto) 1 % (0-3) Neutrophils # (Auto) 3.5 x10^3uL (1.8-7.7) Lymphocytes # (Auto) 2.7 x10^3/uL (1.0-4.8) Monocytes # (Auto) 0.4 x10^3/uL (0.0-1.1) Eosinophils # (Auto) 0.3 x10^3/uL (0.0-0.7) Basophils # (Auto) 0.1 x10^3/uL (0.0-0.2) D-Dimer (Nicci) 0.76 mg/L (0.00-0.50) H Sodium Level 138 mmol/L (136-145) Potassium Level 3.6 mmol/L (3.5-5.1) Chloride Level 102 mmol/L (98-107) Carbon Dioxide Level 29 mmol/L (21-32) Anion Gap 7 (6-14) Blood Urea Nitrogen 16 mg/dL (7-20) Creatinine 0.9 mg/dL (0.6-1.0) Estimated GFR (Cockcroft-Gault) 61.2 BUN/Creatinine Ratio 18 (6-20) Glucose Level 226 mg/dL (70-99) H Calcium Level 8.6 mg/dL (8.5-10.1) Magnesium Level 1.9 mg/dL (1.8-2.4) Iron Level 69 ug/dL (50-170) Total Iron Binding Capacity 391 ug/dL (250-450) Iron Saturation 18 % (15-34) Total Bilirubin 0.3 mg/dL (0.2-1.0) Aspartate Amino Transferase (AST) 18 U/L (15-37) Alanine Aminotransferase (ALT) 25 U/L (14-59) Alkaline Phosphatase 66 U/L (46-116) Total Protein 7.2 g/dL (6.4-8.2) Albumin 3.4 g/dL (3.4-5.0) Albumin/Globulin Ratio 0.9 (1.0-1.7) L Triglycerides Level 159 mg/dL (0-150) H Cholesterol Level 195 mg/dL (0-200) LDL Cholesterol, Calculated 129 mg/dL (0-100) H VLDL Cholesterol, Calculated 31 mg/dL (0-40) Non-HDL Cholesterol Calculated 160 mg/dL (0-129) H HDL Cholesterol 35 mg/dL (40-60) L Cholesterol/HDL Ratio 5.0 Vitamin B12 Level 284 pg/mL (247-911) 25-Hydroxy Vitamin D Total 43.9 ng/mL (30-100) Thyroid Stimulating Hormone (TSH) 2.159 uIU/mL (0.358-3.740) Thyroxine (T4) 7.5 ug/dL (4.5-12.0) Total Triiodothyronine (TT3) 73 ng/dL (71-180) Treponema pallidum Antibody Nonreactive (Nonreactive) Urine Collection Type Unknown Urine Color Yellow Urine Clarity Cloudy Urine pH 6.0 Urine Specific [place] 1.015 Urine Protein Neg (NEG-TRACE) Urine Glucose (UA) >=1000 mg/dL (NEG) Urine Ketones (Stick) Neg mg/dL (NEG) Urine Blood Trace (NEG) Urine Nitrite Neg (NEG) Urine Bilirubin Neg (NEG) Urine Urobilinogen Dipstick 0.2 mg/dL (0.2 mg/dL) Urine Leukocyte Esterase Small (NEG) Urine RBC 3-5 /HPF (0-2) Urine WBC >40 /HPF (0-4) Urine Squamous Epithelial Cells Few /LPF Urine Bacteria Many /HPF (0-FEW) Urine Mucus Slight /LPF Test 11/04/20 11:49 11/04/20 16:52 11/04/20 19:12 Glucose (Fingerstick) 363 mg/dL (70-99) H 297 mg/dL (70-99) H 290 mg/dL (70-99) H Current Medications: Meds: Current Medications Medications (Trade) Dose Ordered Sig/Carmina Route PRN Reason Start Time Stop Time Status Last Admin Dose Admin Levothyroxine Sodium (Synthroid) 25 mcg DAILY06 PO 11/04/20 06:00 11/04/20 06:23 Pantoprazole Sodium (Protonix) 40 mg DAILYAC PO 11/04/20 07:30 11/04/20 08:27 Aspirin (Aspirin Chewable) 81 mg DAILYWBKFT PO 11/04/20 08:00 11/04/20 08:28 Polyethylene Glycol (miraLAX) 17 gm DAILY PO 11/04/20 09:00 11/04/20 08:27 Quetiapine Fumarate (SEROquel) 25 mg BID PO 11/04/20 09:00 11/04/20 08:28 Quetiapine Fumarate (SEROquel) 100 mg TID PO 11/04/20 09:00 11/04/20 13:15 Citalopram Hydrobromide (CeleXA) 40 mg DAILY PO 11/04/20 09:00 11/04/20 08:28 Fenofibrate (Tricor) 145 mg DAILY PO 11/04/20 09:00 11/04/20 08:28 Insulin Human Lispro (HumaLOG) 9 units TIDWMEALS SQ 11/04/20 08:00 11/04/20 17:16 I have reviewed the current psychotropics carefully including drug interactions. Risk benefit ratio favors no change other than as noted in my dictated progress note. Diagnosis: Problems: (1) Bipolar affective, mixed, sev w/ psych (2) Impulse control disorder IDA LAINEZ MD Nov 04, 2020 21:02
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
[2020-11-05 01:09] LABS: HEMOGLOBIN A1C 8.9 % (4.8-5.6)
--- NOTE | 2020-11-05 02:00 | NUR ---
Last evening pt spent most of her time yelling at staff through the window or demanding to call Ricky. She could be redirected briefly but was soon back at the window. After taking HS meds whole she went to bed and has been sleeping.
[2020-11-05] MEDS: LEVOTHYROXINE 25 MCG TABLET. PO SCH (05:52)
[2020-11-05 06:12] VITALS: BP 135/74
[2020-11-05] MEDS: QUEtiapine 25 MG TABLET. PO SCH ×2 (08:22→19:53)
[2020-11-05] MEDS: CITALOPRAM 20 MG TABLET. PO SCH (08:22)
[2020-11-05] MEDS: PANTOPRAZOLE 40 MG TABLET. PO SCH (08:22)
[2020-11-05] MEDS: POLYETHYLENE GLYCOL 3350 17 GM PACKET. PO SCH (08:22)
[2020-11-05] MEDS: FENOFIBRATE NANOCRYSTALLIZED 145 MG TABLET PO SCH (08:22)
[2020-11-05] MEDS: QUEtiapine 100 MG TABLET. PO SCH ×3 (08:22→19:53)
[2020-11-05] MEDS: ASPIRIN CHEWABLE 81 MG TABLET. PO SCH (08:22)
[2020-11-05] MEDS: CHOLECALCIFEROL (VITAMIN D3) 50,000 UNIT CAPSULE PO SCH (08:24)
[2020-11-05] MEDS: INSULIN LISPRO 300 UNITS/3 ML VIAL. SQ SCH ×3 (08:29→17:51)
[2020-11-05] MEDS: GUANFACINE HCL PO SCH ×2 (08:29→21:00)
--- NOTE | 2020-11-05 11:58 | EKG ---
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
[2020-11-05] MEDS: diphenhydrAMINE HCL 25 MG CAPSULE PO PRN (11:59)
--- NOTE | 2020-11-05 14:59 | NUR ---
Nursing note: Pt has spent most of the shift in the day room participating in groups and socializing with peers. She has been med compliant and cooperative. Pt has occasionally yelled out "help me! help me!" and asks to call Ricky. Pt has spoken on the phone with Ricky once today and the conversation appeared to have gone well. She is currently in the day room for group. Will continue to monitor.
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
[2020-11-05 16:42] VITALS: BP 114/70
[2020-11-05] MEDS: MELATONIN 3 MG TABLET PO SCH (19:53)
[2020-11-05] MEDS: traZODone 100 MG TABLET. PO SCH (19:53)
--- NOTE | 2020-11-05 21:11 | PDOC ---
Exam Note: Marcelo Note: Please also refer to the separate dictated note~for this date of service dictated separately.~Patient seen individually. Discussed the patient with Nursing staff reviewed the chart.~Reviewed interim history and current functioning. Reviewed vital signs,~Labs/ Radiology~and current medications noted below. Continue current treatment with the changes noted in the dictated addendum note Assessment: Vital Signs/I&O: Vital Signs Date Time Temp Pulse Resp B/P (MAP) Pulse Ox O2 Delivery O2 Flow Rate FiO2 11/05/20 16:42 98.2 74 16 114/70 (85) 95 Room Air I & O 11/04/20 11/04/20 11/05/20 15:00 23:00 07:00 Intake Total 580 ml 600 ml Balance 580 ml 600 ml Labs: Laboratory Tests Test 11/05/20 07:32 11/05/20 11:31 11/05/20 16:54 11/05/20 19:48 Glucose (Fingerstick) 192 mg/dL (70-99) H 178 mg/dL (70-99) H 153 mg/dL (70-99) H 177 mg/dL (70-99) H Current Medications: Meds: Laboratory Tests Test 11/05/20 07:32 11/05/20 11:31 11/05/20 16:54 11/05/20 19:48 Glucose (Fingerstick) 192 mg/dL 178 mg/dL 153 mg/dL 177 mg/dL Current Medications Medications (Trade) Dose Ordered Sig/Carmina Route PRN Reason Start Time Stop Time Status Last Admin Dose Admin Acetaminophen (Tylenol) 650 mg PRN Q6HRS PRN PO MILD PAIN / TEMP > 100.3'F 11/03/20 23:15 Multi-Ingredient Ointment (Analgesic [place]) 1 estrellita PRN QID PRN TP MUSCLE PAIN 11/03/20 23:15 Al Hydroxide/Mg Hydroxide (Mylanta Plus Xs) 15 ml PRN AFTMEALHC PRN PO DYSPEPSIA 11/03/20 23:15 Magnesium Hydroxide (Milk Of Magnesia) 2,400 mg PRN QHS PRN PO CONSTIPATION 11/03/20 23:15 Levothyroxine Sodium (Synthroid) 25 mcg DAILY06 PO 11/04/20 06:00 11/05/20 05:52 Pantoprazole Sodium (Protonix) 40 mg DAILYAC PO 11/04/20 07:30 11/05/20 08:22 Acetaminophen (Tylenol) 650 mg PRN Q4HRS PRN PO PAIN 11/04/20 00:45 Aspirin (Aspirin Chewable) 81 mg DAILYWBKFT PO 11/04/20 08:00 11/05/20 08:22 Hydroxyzine Pamoate (Vistaril) 25 mg PRN Q6HRS PRN PO agitation/anxiety 11/04/20 00:45 Melatonin (Melatonin) 3 mg HS PO 11/04/20 21:00 11/05/20 19:53 Nystatin (Nystop) 1 estrellita PRN BID PRN TP RASH 11/04/20 00:45 Polyethylene Glycol (miraLAX) 17 gm DAILY PO 11/04/20 09:00 11/05/20 08:22 Quetiapine Fumarate (SEROquel) 25 mg BID PO 11/04/20 09:00 11/05/20 19:53 Quetiapine Fumarate (SEROquel) 100 mg TID PO 11/04/20 09:00 11/05/20 19:53 Trazodone HCl (Desyrel) 100 mg HS PO 11/04/20 21:00 11/05/20 19:53 Non-Formulary Medication (Ergocalciferol (Vitamin D2) (Vitamin D2)) 1,250 mcg WEEKLY PO 11/04/20 09:00 11/04/20 15:01 DC Citalopram Hydrobromide (CeleXA) 40 mg DAILY PO 11/04/20 09:00 11/05/20 18:18 DC 11/05/20 08:22 Fenofibrate (Tricor) 145 mg DAILY PO 11/04/20 09:00 11/05/20 08:22 Non-Formulary Medication (Guanfacine Hcl ) 1 tab BID PO 11/04/20 09:00 UNV Non-Formulary Medication (Insulin Aspart (Novolog)) 9 unit TIDWMEALS SQ 11/04/20 08:00 UNV Non-Formulary Medication (Insulin Glargine,Hum.rec.anlog (Lantus Solostar)) 20 unit QHS SQ 11/04/20 21:00 UNV Non-Formulary Medication (Menthol/Zinc Oxide (Calmoseptine Ointment)) 71 gm BID TP 11/04/20 09:00 11/04/20 14:56 DC Insulin Glargine (Lantus Syringe) 20 unit QHS SQ 11/04/20 21:00 11/04/20 21:00 Insulin Human Lispro (HumaLOG) 9 units TIDWMEALS SQ 11/04/20 08:00 11/05/20 17:51 Vitamin D (Vitamin D3) 50,000 unit WEEKLY PO 11/05/20 09:00 11/05/20 08:24 Diphenhydramine HCl (Benadryl) 50 mg PRN Q6HRS PRN PO RASH 11/05/20 11:30 11/05/20 11:59 Oxcarbazepine (Trileptal) 300 mg BID PO 11/05/20 21:00 11/05/20 19:54 Fluvoxamine Maleate (Luvox) 50 mg QHS PO 11/05/20 21:00 11/05/20 19:53 Current Medications Medications (Trade) Dose Ordered Sig/Carmina Route PRN Reason Start Time Stop Time Status Last Admin Dose Admin Vitamin D (Vitamin D3) 50,000 unit WEEKLY PO 11/05/20 09:00 11/05/20 08:24 Diphenhydramine HCl (Benadryl) 50 mg PRN Q6HRS PRN PO RASH 11/05/20 11:30 11/05/20 11:59 Oxcarbazepine (Trileptal) 300 mg BID PO 11/05/20 21:00 11/05/20 19:54 Fluvoxamine Maleate (Luvox) 50 mg QHS PO 11/05/20 21:00 11/05/20 19:53 I have reviewed the current psychotropics carefully including drug interactions. Risk benefit ratio favors no change other than as noted in my dictated progress note. Diagnosis: Problems: (1) Anxiety disorder, unspecified (2) Bipolar affective, mixed (3) Obsessive compulsive disorder (4) Intellectual disability (5) Impulse control disorder IDA LAINEZ MD Nov 05, 2020 21:11
[2020-11-05] MEDS: INSULIN GLARGINE SYRINGE. SQ SCH (22:01)
--- NOTE | 2020-11-05 22:45 | NUR ---
Last evening pt was frequently at window demanding to call Ricky then began cursing at staff and calling them racial slurs and flipping us off. After taking meds she talked to Ricky and remained agitated for approx another hour. Her shouting and abusive behavior seemed to be causing anxiety among the other patients. Eventually she settled down and has been resting quietly in her bed.
[2020-11-06] MEDS: LEVOTHYROXINE 25 MCG TABLET. PO SCH (05:28)
[2020-11-06 06:06] VITALS: BP 124/68
[2020-11-06] MEDS: GUANFACINE HCL PO SCH ×2 (07:41→21:00)
--- NOTE | 2020-11-06 07:45 | PDOC ---
Exam Note: Marcelo Note: This note is a late entry for 11/05/2020 covers elements not covered in my initial note. Subjective: The patient was reviewed on telehealth rounds in the evening of 11/05/2020 with Sweta HOLLINGSWORTH. Discussed with nursing staff, reviewed the chart. The patient slept 6-1/2 hours previous night. I met with the patient on 2 or 3 separate occasions on rounds as she was back again asking the same questions, quite obsessive, anxious, yelling most of the day, wanting to call Ricky her sister, wants to make sure that Jet her is back home. She is repetitive anxious, labile. Review of Systems: No CV, , pulmonary, eye, ENT system symptoms on review. Mental Status Exam: The patient is oriented to herself and situation. Speech is coherent, rapid at times. Abstraction is fair. Computation is impaired. Language function is intact. Mood and affect labile. Laboratory Data: Reviewed. Impression: Bipolar 1 disorder mixed with psychotic features. Intellectual disability. Anxiety disorder unspecified. Impulse control disorder unspecified. Plan: I have reviewed discharge medications from the last hospitalization. We will restart Trileptal 300 mg twice a day. Change the Celexa to Luvox 50 mg a day given her marked OCD symptoms. We will make further adjustments as clinically indicated. We may need to increase the Luvox gradually. Assessment: Vital Signs/I&O: Vital Signs Date Time Temp Pulse Resp B/P (MAP) Pulse Ox O2 Delivery O2 Flow Rate FiO2 11/06/20 06:06 96.4 68 20 124/68 (86) 96 11/05/20 16:42 Room Air I & O 11/05/20 11/05/20 11/06/20 15:00 23:00 07:00 Intake Total 600 ml 480 ml Balance 600 ml 480 ml Labs: Laboratory Tests Test 11/05/20 11:31 11/05/20 16:54 11/05/20 19:48 Glucose (Fingerstick) 178 mg/dL (70-99) H 153 mg/dL (70-99) H 177 mg/dL (70-99) H Current Medications: Meds: Laboratory Tests Test 11/05/20 11:31 11/05/20 16:54 11/05/20 19:48 Glucose (Fingerstick) 178 mg/dL 153 mg/dL 177 mg/dL Current Medications Medications (Trade) Dose Ordered Sig/Carmina Route PRN Reason Start Time Stop Time Status Last Admin Dose Admin Acetaminophen (Tylenol) 650 mg PRN Q6HRS PRN PO MILD PAIN / TEMP > 100.3'F 11/03/20 23:15 Multi-Ingredient Ointment (Analgesic [place]) 1 estrellita PRN QID PRN TP MUSCLE PAIN 11/03/20 23:15 Al Hydroxide/Mg Hydroxide (Mylanta Plus Xs) 15 ml PRN AFTMEALHC PRN PO DYSPEPSIA 11/03/20 23:15 Magnesium Hydroxide (Milk Of Magnesia) 2,400 mg PRN QHS PRN PO CONSTIPATION 11/03/20 23:15 Levothyroxine Sodium (Synthroid) 25 mcg DAILY06 PO 11/04/20 06:00 11/06/20 05:28 Pantoprazole Sodium (Protonix) 40 mg DAILYAC PO 11/04/20 07:30 11/05/20 08:22 Acetaminophen (Tylenol) 650 mg PRN Q4HRS PRN PO PAIN 11/04/20 00:45 Aspirin (Aspirin Chewable) 81 mg DAILYWBKFT PO 11/04/20 08:00 11/05/20 08:22 Hydroxyzine Pamoate (Vistaril) 25 mg PRN Q6HRS PRN PO agitation/anxiety 11/04/20 00:45 Melatonin (Melatonin) 3 mg HS PO 11/04/20 21:00 11/05/20 19:53 Nystatin (Nystop) 1 estrellita PRN BID PRN TP RASH 11/04/20 00:45 Polyethylene Glycol (miraLAX) 17 gm DAILY PO 11/04/20 09:00 11/05/20 08:22 Quetiapine Fumarate (SEROquel) 25 mg BID PO 11/04/20 09:00 11/05/20 19:53 Quetiapine Fumarate (SEROquel) 100 mg TID PO 11/04/20 09:00 11/05/20 19:53 Trazodone HCl (Desyrel) 100 mg HS PO 11/04/20 21:00 11/05/20 19:53 Non-Formulary Medication (Ergocalciferol (Vitamin D2) (Vitamin D2)) 1,250 mcg WEEKLY PO 11/04/20 09:00 11/04/20 15:01 DC Citalopram Hydrobromide (CeleXA) 40 mg DAILY PO 11/04/20 09:00 11/05/20 18:18 DC 11/05/20 08:22 Fenofibrate (Tricor) 145 mg DAILY PO 11/04/20 09:00 11/05/20 08:22 Non-Formulary Medication (Guanfacine Hcl ) 1 tab BID PO 11/04/20 09:00 UNV Non-Formulary Medication (Insulin Aspart (Novolog)) 9 unit TIDWMEALS SQ 11/04/20 08:00 UNV Non-Formulary Medication (Insulin Glargine,Hum.rec.anlog (Lantus Solostar)) 20 unit QHS SQ 11/04/20 21:00 UNV Non-Formulary Medication (Menthol/Zinc Oxide (Calmoseptine Ointment)) 71 gm BID TP 11/04/20 09:00 11/04/20 14:56 DC Insulin Glargine (Lantus Syringe) 20 unit QHS SQ 11/04/20 21:00 11/05/20 22:01 Insulin Human Lispro (HumaLOG) 9 units TIDWMEALS SQ 11/04/20 08:00 11/05/20 17:51 Vitamin D (Vitamin D3) 50,000 unit WEEKLY PO 11/05/20 09:00 11/05/20 08:24 Diphenhydramine HCl (Benadryl) 50 mg PRN Q6HRS PRN PO RASH 11/05/20 11:30 11/05/20 11:59 Oxcarbazepine (Trileptal) 300 mg BID PO 11/05/20 21:00 11/05/20 19:54 Fluvoxamine Maleate (Luvox) 50 mg QHS PO 11/05/20 21:00 11/05/20 19:53 Current Medications Medications (Trade) Dose Ordered Sig/Carmina Route PRN Reason Start Time Stop Time Status Last Admin Dose Admin Vitamin D (Vitamin D3) 50,000 unit WEEKLY PO 11/05/20 09:00 11/05/20 08:24 Diphenhydramine HCl (Benadryl) 50 mg PRN Q6HRS PRN PO RASH 11/05/20 11:30 11/05/20 11:59 Oxcarbazepine (Trileptal) 300 mg BID PO 11/05/20 21:00 11/05/20 19:54 Fluvoxamine Maleate (Luvox) 50 mg QHS PO 11/05/20 21:00 11/05/20 19:53 I have reviewed the current psychotropics carefully including drug interactions. Risk benefit ratio favors no change other than as noted in my dictated progress note. Diagnosis: Problems: (1) Bipolar affective, mixed, sev w/ psych (2) Obsessive compulsive disorder (3) Intellectual disability (4) Anxiety disorder, unspecified (5) Impulse control disorder IDA LAINEZ MD Nov 06, 2020 07:45
[2020-11-06] MEDS: FENOFIBRATE NANOCRYSTALLIZED 145 MG TABLET PO SCH (09:13)
[2020-11-06] MEDS: QUEtiapine 100 MG TABLET. PO SCH ×3 (09:13→20:04)
[2020-11-06] MEDS: POLYETHYLENE GLYCOL 3350 17 GM PACKET. PO SCH (09:13)
[2020-11-06] MEDS: QUEtiapine 25 MG TABLET. PO SCH ×2 (09:13→20:04)
[2020-11-06] MEDS: PANTOPRAZOLE 40 MG TABLET. PO SCH (09:13)
[2020-11-06] MEDS: ASPIRIN CHEWABLE 81 MG TABLET. PO SCH (09:13)
[2020-11-06] MEDS: INSULIN LISPRO 300 UNITS/3 ML VIAL. SQ SCH ×3 (09:16→17:27)
--- NOTE | 2020-11-06 10:07 | NUR ---
Patient calm and cooperative with medication and assessment. Patient assisted with putting non-slip socks on.
[2020-11-06 16:10] VITALS: BP 114/72
[2020-11-06] MEDS: levoFLOXacin 250 MG TABLET PO SCH (17:25)
[2020-11-06] MEDS: MELATONIN 3 MG TABLET PO SCH (20:03)
[2020-11-06] MEDS: traZODone 100 MG TABLET. PO SCH (20:04)
[2020-11-06] MEDS: INSULIN GLARGINE SYRINGE. SQ SCH (20:06)
--- NOTE | 2020-11-06 20:57 | PDOC ---
Exam Note: Marcelo Note: Please also refer to the separate dictated note~for this date of service dictated separately.~Patient seen individually. Discussed the patient with Nursing staff reviewed the chart.~Reviewed interim history and current functioning. Reviewed vital signs,~Labs/ Radiology~and current medications noted below. Continue current treatment with the changes noted in the dictated addendum note Assessment: Vital Signs/I&O: Vital Signs Date Time Temp Pulse Resp B/P (MAP) Pulse Ox O2 Delivery O2 Flow Rate FiO2 11/06/20 16:10 98.6 76 20 114/72 (86) 98 11/05/20 16:42 Room Air I & O 11/05/20 11/05/20 11/06/20 15:00 23:00 07:00 Intake Total 600 ml 480 ml Balance 600 ml 480 ml Labs: Laboratory Tests Test 11/06/20 11:24 11/06/20 16:22 11/06/20 19:25 Glucose (Fingerstick) 259 mg/dL (70-99) H 237 mg/dL (70-99) H 261 mg/dL (70-99) H Current Medications: Meds: Laboratory Tests Test 11/06/20 11:24 11/06/20 16:22 11/06/20 19:25 Glucose (Fingerstick) 259 mg/dL 237 mg/dL 261 mg/dL Current Medications Medications (Trade) Dose Ordered Sig/Carmina Route PRN Reason Start Time Stop Time Status Last Admin Dose Admin Acetaminophen (Tylenol) 650 mg PRN Q6HRS PRN PO MILD PAIN / TEMP > 100.3'F 11/03/20 23:15 Multi-Ingredient Ointment (Analgesic [place]) 1 estrellita PRN QID PRN TP MUSCLE PAIN 11/03/20 23:15 Al Hydroxide/Mg Hydroxide (Mylanta Plus Xs) 15 ml PRN AFTMEALHC PRN PO DYSPEPSIA 11/03/20 23:15 Magnesium Hydroxide (Milk Of Magnesia) 2,400 mg PRN QHS PRN PO CONSTIPATION 11/03/20 23:15 Levothyroxine Sodium (Synthroid) 25 mcg DAILY06 PO 11/04/20 06:00 11/06/20 05:28 Pantoprazole Sodium (Protonix) 40 mg DAILYAC PO 11/04/20 07:30 11/06/20 09:13 Acetaminophen (Tylenol) 650 mg PRN Q4HRS PRN PO PAIN 11/04/20 00:45 Aspirin (Aspirin Chewable) 81 mg DAILYWBKFT PO 11/04/20 08:00 11/06/20 09:13 Hydroxyzine Pamoate (Vistaril) 25 mg PRN Q6HRS PRN PO agitation/anxiety 11/04/20 00:45 Melatonin (Melatonin) 3 mg HS PO 11/04/20 21:00 11/06/20 20:03 Nystatin (Nystop) 1 estrellita PRN BID PRN TP RASH 11/04/20 00:45 Polyethylene Glycol (miraLAX) 17 gm DAILY PO 11/04/20 09:00 11/06/20 09:13 Quetiapine Fumarate (SEROquel) 25 mg BID PO 11/04/20 09:00 11/06/20 20:04 Quetiapine Fumarate (SEROquel) 100 mg TID PO 11/04/20 09:00 11/06/20 20:04 Trazodone HCl (Desyrel) 100 mg HS PO 11/04/20 21:00 11/06/20 20:04 Non-Formulary Medication (Ergocalciferol (Vitamin D2) (Vitamin D2)) 1,250 mcg WEEKLY PO 11/04/20 09:00 11/04/20 15:01 DC Citalopram Hydrobromide (CeleXA) 40 mg DAILY PO 11/04/20 09:00 11/05/20 18:18 DC 11/05/20 08:22 Fenofibrate (Tricor) 145 mg DAILY PO 11/04/20 09:00 11/06/20 09:13 Non-Formulary Medication (Guanfacine Hcl ) 1 tab BID PO 11/04/20 09:00 UNV Non-Formulary Medication (Insulin Aspart (Novolog)) 9 unit TIDWMEALS SQ 11/04/20 08:00 UNV Non-Formulary Medication (Insulin Glargine,Hum.rec.anlog (Lantus Solostar)) 20 unit QHS SQ 11/04/20 21:00 UNV Non-Formulary Medication (Menthol/Zinc Oxide (Calmoseptine Ointment)) 71 gm BID TP 11/04/20 09:00 11/04/20 14:56 DC Insulin Glargine (Lantus Syringe) 20 unit QHS SQ 11/04/20 21:00 11/06/20 20:06 Insulin Human Lispro (HumaLOG) 9 units TIDWMEALS SQ 11/04/20 08:00 11/06/20 17:27 Vitamin D (Vitamin D3) 50,000 unit WEEKLY PO 11/05/20 09:00 11/05/20 08:24 Diphenhydramine HCl (Benadryl) 50 mg PRN Q6HRS PRN PO RASH 11/05/20 11:30 11/05/20 11:59 Oxcarbazepine (Trileptal) 300 mg BID PO 11/05/20 21:00 11/06/20 20:03 Fluvoxamine Maleate (Luvox) 50 mg QHS PO 11/05/20 21:00 11/06/20 20:03 Levofloxacin (Levaquin) 250 mg DAILY06 PO 11/06/20 16:00 11/10/20 06:01 11/06/20 17:25 Current Medications Medications (Trade) Dose Ordered Sig/Carmina Route PRN Reason Start Time Stop Time Status Last Admin Dose Admin Oxcarbazepine (Trileptal) 300 mg BID PO 11/05/20 21:00 11/06/20 20:03 Fluvoxamine Maleate (Luvox) 50 mg QHS PO 11/05/20 21:00 11/06/20 20:03 Levofloxacin (Levaquin) 250 mg DAILY06 PO 11/06/20 16:00 11/10/20 06:01 11/06/20 17:25 I have reviewed the current psychotropics carefully including drug interactions. Risk benefit ratio favors no change other than as noted in my dictated progress note. Diagnosis: Problems: (1) Bipolar affective, mixed, sev w/ psych (2) Anxiety disorder, unspecified (3) Intellectual disability (4) Impulse control disorder (5) Obsessive compulsive disorder IDA LAINEZ MD Nov 06, 2020 20:57
[2020-11-06] MEDS: diphenhydrAMINE HCL 25 MG CAPSULE PO PRN (22:51)
--- NOTE | 2020-11-07 00:01 | NUR ---
Pt has been much calmer tonight. Meds were taken whole without difficulty. After going to bed she would yell help me, call out hello, or cough loudly. Eventually she fall to sleep.
[2020-11-07] MEDS: levoFLOXacin 250 MG TABLET PO SCH (05:30)
[2020-11-07] MEDS: LEVOTHYROXINE 25 MCG TABLET. PO SCH (05:30)
[2020-11-07 06:42] VITALS: BP 138/69
[2020-11-07] MEDS: GUANFACINE HCL PO SCH ×2 (07:39→21:21)
--- NOTE | 2020-11-07 08:10 | PDOC ---
Exam Note: Marcelo Note: This note is a late entry for 11/06/2020 covers elements not covered in my initial note. Subjective: The patient was reviewed on telehealth rounds in the evening of 11/06/2020 with Ferny HOLLINGSWORTH. Discussed with nursing staff, reviewed the chart. The patient slept 5-3/4 hours previous night. She does have UTI and is on Levaquin for this. She has been less agitated, less yelling. Review of Systems: No CV, , pulmonary, eye, ENT system symptoms on review. Mental Status Exam: The patient is oriented to herself and situation. Speech is coherent, rapid at times. Abstraction is fair. Computation is impaired. Language function is intact. Attention span is short. She is quite obsessive, anxious, repetitive about discharge plans. Laboratory Data: Reviewed. Impression: Bipolar 1 disorder mixed with psychotic features. Intellectual disability. Anxiety disorder unspecified. Impulse control disorder unspecified. Plan: Treat the UTI. We have initiated Trileptal 300 mg twice a day. Celexa has been changed to Luvox 50 mg a day. We will increase gradually as clinically indicated. Assessment: Vital Signs/I&O: Vital Signs Date Time Temp Pulse Resp B/P (MAP) Pulse Ox O2 Delivery O2 Flow Rate FiO2 11/07/20 06:42 97.7 78 18 138/69 (92) 96 11/05/20 16:42 Room Air I & O 11/06/20 11/06/20 11/07/20 15:00 23:00 07:00 Intake Total 600 ml 600 ml Balance 600 ml 600 ml Labs: Laboratory Tests Test 11/06/20 11:24 11/06/20 16:22 11/06/20 19:25 Glucose (Fingerstick) 259 mg/dL (70-99) H 237 mg/dL (70-99) H 261 mg/dL (70-99) H Current Medications: Meds: Laboratory Tests Test 11/06/20 11:24 11/06/20 16:22 11/06/20 19:25 Glucose (Fingerstick) 259 mg/dL 237 mg/dL 261 mg/dL Current Medications Medications (Trade) Dose Ordered Sig/Carmina Route PRN Reason Start Time Stop Time Status Last Admin Dose Admin Acetaminophen (Tylenol) 650 mg PRN Q6HRS PRN PO MILD PAIN / TEMP > 100.3'F 11/03/20 23:15 Multi-Ingredient Ointment (Analgesic [place]) 1 estrellita PRN QID PRN TP MUSCLE PAIN 11/03/20 23:15 Al Hydroxide/Mg Hydroxide (Mylanta Plus Xs) 15 ml PRN AFTMEALHC PRN PO DYSPEPSIA 11/03/20 23:15 Magnesium Hydroxide (Milk Of Magnesia) 2,400 mg PRN QHS PRN PO CONSTIPATION 11/03/20 23:15 Levothyroxine Sodium (Synthroid) 25 mcg DAILY06 PO 11/04/20 06:00 11/07/20 05:30 Pantoprazole Sodium (Protonix) 40 mg DAILYAC PO 11/04/20 07:30 11/06/20 09:13 Acetaminophen (Tylenol) 650 mg PRN Q4HRS PRN PO PAIN 11/04/20 00:45 Aspirin (Aspirin Chewable) 81 mg DAILYWBKFT PO 11/04/20 08:00 11/06/20 09:13 Hydroxyzine Pamoate (Vistaril) 25 mg PRN Q6HRS PRN PO agitation/anxiety 11/04/20 00:45 Melatonin (Melatonin) 3 mg HS PO 11/04/20 21:00 11/06/20 20:03 Nystatin (Nystop) 1 estrellita PRN BID PRN TP RASH 11/04/20 00:45 Polyethylene Glycol (miraLAX) 17 gm DAILY PO 11/04/20 09:00 11/06/20 09:13 Quetiapine Fumarate (SEROquel) 25 mg BID PO 11/04/20 09:00 11/06/20 20:04 Quetiapine Fumarate (SEROquel) 100 mg TID PO 11/04/20 09:00 11/06/20 20:04 Trazodone HCl (Desyrel) 100 mg HS PO 11/04/20 21:00 11/06/20 20:04 Non-Formulary Medication (Ergocalciferol (Vitamin D2) (Vitamin D2)) 1,250 mcg WEEKLY PO 11/04/20 09:00 11/04/20 15:01 DC Citalopram Hydrobromide (CeleXA) 40 mg DAILY PO 11/04/20 09:00 11/05/20 18:18 DC 11/05/20 08:22 Fenofibrate (Tricor) 145 mg DAILY PO 11/04/20 09:00 11/06/20 09:13 Non-Formulary Medication (Guanfacine Hcl ) 1 tab BID PO 11/04/20 09:00 UNV Non-Formulary Medication (Insulin Aspart (Novolog)) 9 unit TIDWMEALS SQ 11/04/20 08:00 UNV Non-Formulary Medication (Insulin Glargine,Hum.rec.anlog (Lantus Solostar)) 20 unit QHS SQ 11/04/20 21:00 UNV Non-Formulary Medication (Menthol/Zinc Oxide (Calmoseptine Ointment)) 71 gm BID TP 11/04/20 09:00 11/04/20 14:56 DC Insulin Glargine (Lantus Syringe) 20 unit QHS SQ 11/04/20 21:00 11/06/20 20:06 Insulin Human Lispro (HumaLOG) 9 units TIDWMEALS SQ 11/04/20 08:00 11/06/20 17:27 Vitamin D (Vitamin D3) 50,000 unit WEEKLY PO 11/05/20 09:00 11/05/20 08:24 Diphenhydramine HCl (Benadryl) 50 mg PRN Q6HRS PRN PO RASH 11/05/20 11:30 11/06/20 22:51 Oxcarbazepine (Trileptal) 300 mg BID PO 11/05/20 21:00 11/06/20 20:03 Fluvoxamine Maleate (Luvox) 50 mg QHS PO 11/05/20 21:00 11/06/20 20:03 Levofloxacin (Levaquin) 250 mg DAILY06 PO 11/06/20 16:00 11/10/20 06:01 11/07/20 05:30 Current Medications Medications (Trade) Dose Ordered Sig/Carmina Route PRN Reason Start Time Stop Time Status Last Admin Dose Admin Levofloxacin (Levaquin) 250 mg DAILY06 PO 11/06/20 16:00 11/10/20 06:01 11/07/20 05:30 I have reviewed the current psychotropics carefully including drug interactions. Risk benefit ratio favors no change other than as noted in my dictated progress note. Diagnosis: Problems: (1) Bipolar affective, mixed, sev w/ psych (2) Anxiety disorder, unspecified (3) Impulse control disorder (4) Obsessive compulsive disorder IDA LAINEZ MD Nov 07, 2020 08:10
[2020-11-07] MEDS: PANTOPRAZOLE 40 MG TABLET. PO SCH (09:08)
[2020-11-07] MEDS: FENOFIBRATE NANOCRYSTALLIZED 145 MG TABLET PO SCH (09:08)
[2020-11-07] MEDS: QUEtiapine 100 MG TABLET. PO SCH ×3 (09:08→21:16)
[2020-11-07] MEDS: QUEtiapine 25 MG TABLET. PO SCH ×2 (09:08→21:16)
[2020-11-07] MEDS: INSULIN LISPRO 300 UNITS/3 ML VIAL. SQ SCH ×3 (09:08→17:17)
[2020-11-07] MEDS: ASPIRIN CHEWABLE 81 MG TABLET. PO SCH (09:08)
[2020-11-07] MEDS: POLYETHYLENE GLYCOL 3350 17 GM PACKET. PO SCH (09:09)
--- NOTE | 2020-11-07 10:20 | NUR ---
Patient calm and cooperative with medication and assessment. Patient assisted with putting non-slip socks on.
[2020-11-07 15:47] VITALS: BP 109/68
--- NOTE | 2020-11-07 19:45 | NUR ---
Patient was in the day room watching the [employer] game when she began calling peers "idiots" and other insulting names. She was asked to stop insulting others, she continued and so patient taken to [facility]. Patient yelling at staff, asking to call Ricky many times. Patient calling staff names, stating staff member is a "dummy". This nurse told patient that if she would calm down, she could return to the day room. Patient continued to yell and demand to call Ricky. Eventually patient calmed down and was allowed to go into day room to watch the football game.
--- NOTE | 2020-11-07 20:52 | PDOC ---
Exam Note: Marcelo Note: Please also refer to the separate dictated note~for this date of service dictated separately.~Patient seen individually. Discussed the patient with Nursing staff reviewed the chart.~Reviewed interim history and current functioning. Reviewed vital signs,~Labs/ Radiology~and current medications noted below. Continue current treatment with the changes noted in the dictated addendum note Assessment: Vital Signs/I&O: Vital Signs Date Time Temp Pulse Resp B/P (MAP) Pulse Ox O2 Delivery O2 Flow Rate FiO2 11/07/20 15:47 96.9 81 17 109/68 (82) 94 Room Air I & O 11/06/20 11/06/20 11/07/20 15:00 23:00 07:00 Intake Total 600 ml 600 ml Balance 600 ml 600 ml Labs: Laboratory Tests Test 11/07/20 11:57 11/07/20 17:05 11/07/20 19:32 Glucose (Fingerstick) 194 mg/dL (70-99) H 140 mg/dL (70-99) H 190 mg/dL (70-99) H Current Medications: Meds: Laboratory Tests Test 11/07/20 11:57 11/07/20 17:05 11/07/20 19:32 Glucose (Fingerstick) 194 mg/dL 140 mg/dL 190 mg/dL Current Medications Medications (Trade) Dose Ordered Sig/Carmina Route PRN Reason Start Time Stop Time Status Last Admin Dose Admin Acetaminophen (Tylenol) 650 mg PRN Q6HRS PRN PO MILD PAIN / TEMP > 100.3'F 11/03/20 23:15 Cancel Multi-Ingredient Ointment (Analgesic [place]) 1 estrellita PRN QID PRN TP MUSCLE PAIN 11/03/20 23:15 Al Hydroxide/Mg Hydroxide (Mylanta Plus Xs) 15 ml PRN AFTMEALHC PRN PO DYSPEPSIA 11/03/20 23:15 Magnesium Hydroxide (Milk Of Magnesia) 2,400 mg PRN QHS PRN PO CONSTIPATION 11/03/20 23:15 Levothyroxine Sodium (Synthroid) 25 mcg DAILY06 PO 11/04/20 06:00 11/07/20 05:30 Pantoprazole Sodium (Protonix) 40 mg DAILYAC PO 11/04/20 07:30 11/07/20 09:08 Acetaminophen (Tylenol) 650 mg PRN Q4HRS PRN PO PAIN 11/04/20 00:45 Aspirin (Aspirin Chewable) 81 mg DAILYWBKFT PO 11/04/20 08:00 11/07/20 09:08 Hydroxyzine Pamoate (Vistaril) 25 mg PRN Q6HRS PRN PO agitation/anxiety 11/04/20 00:45 Melatonin (Melatonin) 3 mg HS PO 11/04/20 21:00 11/06/20 20:03 Nystatin (Nystop) 1 estrellita PRN BID PRN TP RASH 11/04/20 00:45 Polyethylene Glycol (miraLAX) 17 gm DAILY PO 11/04/20 09:00 11/07/20 09:09 Quetiapine Fumarate (SEROquel) 25 mg BID PO 11/04/20 09:00 11/07/20 09:08 Quetiapine Fumarate (SEROquel) 100 mg TID PO 11/04/20 09:00 11/07/20 11:59 Trazodone HCl (Desyrel) 100 mg HS PO 11/04/20 21:00 11/06/20 20:04 Non-Formulary Medication (Ergocalciferol (Vitamin D2) (Vitamin D2)) 1,250 mcg WEEKLY PO 11/04/20 09:00 11/04/20 15:01 DC Citalopram Hydrobromide (CeleXA) 40 mg DAILY PO 11/04/20 09:00 11/05/20 18:18 DC 11/05/20 08:22 Fenofibrate (Tricor) 145 mg DAILY PO 11/04/20 09:00 11/07/20 09:08 Non-Formulary Medication (Guanfacine Hcl ) 1 tab BID PO 11/04/20 09:00 UNV Non-Formulary Medication (Insulin Aspart (Novolog)) 9 unit TIDWMEALS SQ 11/04/20 08:00 UNV Non-Formulary Medication (Insulin Glargine,Hum.rec.anlog (Lantus Solostar)) 20 unit QHS SQ 11/04/20 21:00 UNV Non-Formulary Medication (Menthol/Zinc Oxide (Calmoseptine Ointment)) 71 gm BID TP 11/04/20 09:00 11/04/20 14:56 DC Insulin Glargine (Lantus Syringe) 20 unit QHS SQ 11/04/20 21:00 11/06/20 20:06 Insulin Human Lispro (HumaLOG) 9 units TIDWMEALS SQ 11/04/20 08:00 11/07/20 17:17 Vitamin D (Vitamin D3) 50,000 unit WEEKLY PO 11/05/20 09:00 11/05/20 08:24 Diphenhydramine HCl (Benadryl) 50 mg PRN Q6HRS PRN PO RASH 11/05/20 11:30 11/06/20 22:51 Oxcarbazepine (Trileptal) 300 mg BID PO 11/05/20 21:00 11/07/20 16:24 DC 11/07/20 09:08 Fluvoxamine Maleate (Luvox) 50 mg QHS PO 11/05/20 21:00 11/06/20 20:03 Levofloxacin (Levaquin) 250 mg DAILY06 PO 11/06/20 16:00 11/10/20 06:01 11/07/20 05:30 Lactobacillus Rhamnosus (Culturelle) 1 cap BID PO 11/07/20 21:00 I have reviewed the current psychotropics carefully including drug interactions. Risk benefit ratio favors no change other than as noted in my dictated progress note. Diagnosis: Problems: (1) Obsessive compulsive disorder (2) Impulse control disorder (3) Anxiety disorder, unspecified (4) Bipolar affective, mixed, sev w/ psych IDA LAINEZ MD Nov 07, 2020 20:52
[2020-11-07] MEDS: MELATONIN 3 MG TABLET PO SCH (21:16)
[2020-11-07] MEDS: traZODone 100 MG TABLET. PO SCH (21:16)
[2020-11-07] MEDS: INSULIN GLARGINE SYRINGE. SQ SCH (21:18)
[2020-11-07] MEDS: LACTOBACILLUS RHAMNOSUS GG 1 CAPSULE. PO SCH (21:20)
[2020-11-07] MEDS: hydrOXYzine PAMOATE 25 MG CAPSULE PO PRN (21:24)
--- NOTE | 2020-11-08 00:57 | NUR ---
Patient compliant with medications at . Patient had multiple episodes of yelling out and disruptive behaviors after she went to bed. Patient eventually went to sleep and has been sleeping well since then.
[2020-11-08] MEDS: levoFLOXacin 250 MG TABLET PO SCH (05:18)
[2020-11-08] MEDS: LEVOTHYROXINE 25 MCG TABLET. PO SCH (05:18)
--- NOTE | 2020-11-08 08:03 | NUR ---
IP: patient urine cx has ESBL e coli. Requires contact precautions until completion of antibiotics and resolution of symptoms.
[2020-11-08] MEDS: POLYETHYLENE GLYCOL 3350 17 GM PACKET. PO SCH (08:04)
[2020-11-08] MEDS: FENOFIBRATE NANOCRYSTALLIZED 145 MG TABLET PO SCH (08:05)
[2020-11-08] MEDS: QUEtiapine 25 MG TABLET. PO SCH ×2 (08:05→20:01)
[2020-11-08] MEDS: ASPIRIN CHEWABLE 81 MG TABLET. PO SCH (08:05)
[2020-11-08] MEDS: LACTOBACILLUS RHAMNOSUS GG 1 CAPSULE. PO SCH ×2 (08:06→20:02)
[2020-11-08] MEDS: PANTOPRAZOLE 40 MG TABLET. PO SCH (08:06)
[2020-11-08] MEDS: QUEtiapine 100 MG TABLET. PO SCH ×3 (08:06→20:01)
[2020-11-08] MEDS: GUANFACINE HCL PO SCH (08:07)
[2020-11-08] MEDS: INSULIN LISPRO 300 UNITS/3 ML VIAL. SQ SCH ×3 (08:10→17:32)
--- NOTE | 2020-11-08 08:34 | PDOC ---
Exam Note: Marcelo Note: This note is a late entry for 11/07/2020 covers elements not covered in my initial note. Subjective: The patient was reviewed on telehealth rounds in the evening of 11/07/2020 with Ferny HOLLINGSWORTH. Discussed with nursing staff, reviewed the chart. The patient slept 3 hours previous night. She has been quieter, less anxious, less obsessive, still fixated on discharge plans and as I met with her on telehealth visit, thats all she could talk about wanting to be discharged next Sunday. The patients sister Ricky reportedly contacted nursing staff and does not want the patient on Trileptal because of her previous neuroleptic malignant syndrome. Trileptal is not likely to cause this but it seems quite clear that family does not want her on Trileptal for some reason and we will go ahead and stop it for now. She is nevertheless tolerating Luvox. She has vague somatic symptoms. Review of Systems: No CV, , pulmonary, eye, ENT system symptoms on review. Mental Status Exam: The patient is oriented to herself and situation. She does have the nose movements which is typical for her. Abstraction is fair. Computation is impaired. Language function is intact. Attention span is short. Mood and affect anxious, labile, still obsessive but improved. Laboratory Data: Reviewed. Impression: Bipolar 1 disorder mixed with psychotic features. Anxiety disorder unspecified. Impulse control disorder unspecified. Plan: We will continue to gradually increase the Luvox. Stop the Trileptal. Continue Klonopin. Rest unchanged for now. Assessment: Vital Signs/I&O: Vital Signs Date Time Temp Pulse Resp B/P (MAP) Pulse Ox O2 Delivery O2 Flow Rate FiO2 11/07/20 15:47 96.9 81 17 109/68 (82) 94 Room Air I & O 11/07/20 11/07/20 11/08/20 15:00 23:00 07:00 Intake Total 720 ml 360 ml 120 ml Balance 720 ml 360 ml 120 ml Labs: Laboratory Tests Test 11/07/20 11:57 11/07/20 17:05 11/07/20 19:32 11/08/20 07:24 Glucose (Fingerstick) 194 mg/dL (70-99) H 140 mg/dL (70-99) H 190 mg/dL (70-99) H 164 mg/dL (70-99) H Current Medications: Meds: Laboratory Tests Test 11/07/20 11:57 11/07/20 17:05 11/07/20 19:32 11/08/20 07:24 Glucose (Fingerstick) 194 mg/dL 140 mg/dL 190 mg/dL 164 mg/dL Current Medications Medications (Trade) Dose Ordered Sig/Carmina Route PRN Reason Start Time Stop Time Status Last Admin Dose Admin Acetaminophen (Tylenol) 650 mg PRN Q6HRS PRN PO MILD PAIN / TEMP > 100.3'F 11/03/20 23:15 Cancel Multi-Ingredient Ointment (Analgesic [place]) 1 estrellita PRN QID PRN TP MUSCLE PAIN 11/03/20 23:15 Al Hydroxide/Mg Hydroxide (Mylanta Plus Xs) 15 ml PRN AFTMEALHC PRN PO DYSPEPSIA 11/03/20 23:15 Magnesium Hydroxide (Milk Of Magnesia) 2,400 mg PRN QHS PRN PO CONSTIPATION 11/03/20 23:15 Levothyroxine Sodium (Synthroid) 25 mcg DAILY06 PO 11/04/20 06:00 11/08/20 05:18 Pantoprazole Sodium (Protonix) 40 mg DAILYAC PO 11/04/20 07:30 11/08/20 08:06 Acetaminophen (Tylenol) 650 mg PRN Q4HRS PRN PO PAIN 11/04/20 00:45 Aspirin (Aspirin Chewable) 81 mg DAILYWBKFT PO 11/04/20 08:00 11/08/20 08:05 Hydroxyzine Pamoate (Vistaril) 25 mg PRN Q6HRS PRN PO agitation/anxiety 11/04/20 00:45 11/07/20 21:24 Melatonin (Melatonin) 3 mg HS PO 11/04/20 21:00 11/07/20 21:16 Nystatin (Nystop) 1 estrellita PRN BID PRN TP RASH 11/04/20 00:45 Polyethylene Glycol (miraLAX) 17 gm DAILY PO 11/04/20 09:00 11/08/20 08:04 Quetiapine Fumarate (SEROquel) 25 mg BID PO 11/04/20 09:00 11/08/20 08:05 Quetiapine Fumarate (SEROquel) 100 mg TID PO 11/04/20 09:00 11/08/20 08:06 Trazodone HCl (Desyrel) 100 mg HS PO 11/04/20 21:00 11/07/20 21:16 Non-Formulary Medication (Ergocalciferol (Vitamin D2) (Vitamin D2)) 1,250 mcg WEEKLY PO 11/04/20 09:00 11/04/20 15:01 DC Citalopram Hydrobromide (CeleXA) 40 mg DAILY PO 11/04/20 09:00 11/05/20 18:18 DC 11/05/20 08:22 Fenofibrate (Tricor) 145 mg DAILY PO 11/04/20 09:00 11/08/20 08:05 Non-Formulary Medication (Guanfacine Hcl ) 1 tab BID PO 11/04/20 09:00 UNV Non-Formulary Medication (Insulin Aspart (Novolog)) 9 unit TIDWMEALS SQ 11/04/20 08:00 UNV Non-Formulary Medication (Insulin Glargine,Hum.rec.anlog (Lantus Solostar)) 20 unit QHS SQ 11/04/20 21:00 UNV Non-Formulary Medication (Menthol/Zinc Oxide (Calmoseptine Ointment)) 71 gm BID TP 11/04/20 09:00 11/04/20 14:56 DC Insulin Glargine (Lantus Syringe) 20 unit QHS SQ 11/04/20 21:00 11/07/20 21:18 Insulin Human Lispro (HumaLOG) 9 units TIDWMEALS SQ 11/04/20 08:00 11/08/20 08:10 Vitamin D (Vitamin D3) 50,000 unit WEEKLY PO 11/05/20 09:00 11/05/20 08:24 Diphenhydramine HCl (Benadryl) 50 mg PRN Q6HRS PRN PO RASH 11/05/20 11:30 11/06/20 22:51 Oxcarbazepine (Trileptal) 300 mg BID PO 11/05/20 21:00 11/07/20 16:24 DC 11/07/20 09:08 Fluvoxamine Maleate (Luvox) 50 mg QHS PO 11/05/20 21:00 1/24/21 21:15 Levofloxacin (Levaquin) 250 mg DAILY06 PO 11/06/20 16:00 11/10/20 06:01 11/08/20 05:18 Lactobacillus Rhamnosus (Culturelle) 1 cap BID PO 11/07/20 21:00 11/08/20 08:06 Current Medications Medications (Trade) Dose Ordered Sig/Carmina Route PRN Reason Start Time Stop Time Status Last Admin Dose Admin Lactobacillus Rhamnosus (Culturelle) 1 cap BID PO 11/07/20 21:00 11/08/20 08:06 I have reviewed the current psychotropics carefully including drug interactions. Risk benefit ratio favors no change other than as noted in my dictated progress note. Diagnosis: Problems: (1) Obsessive compulsive disorder (2) Anxiety disorder, unspecified (3) Bipolar affective, mixed, sev w/ psych (4) Impulse control disorder IDA LAINEZ MD Nov 08, 2020 08:34
[2020-11-08] MEDS: hydrOXYzine PAMOATE 25 MG CAPSULE PO PRN (15:13)
[2020-11-08 16:33] VITALS: BP 132/69
--- NOTE | 2020-11-08 17:52 | NUR ---
Nursing note: Pt has been isolated to her room today d/t pt having ESBL in her urine. Pt has not been cooperative and needs several reminders to remain in her room. Pt has been yelling out for the majority of the shift, causing disruption among the entire unit and lots of other patients to get worked up. PRN hydroxyzine given at 1513 with no effect. Pt became increasingly agitated, yelling "LET ME CALL MICHEL! YOU'RE NOT THE BOSS OF ME! I DON'T GOT NO VIRUS!" Pt was not cooperative with redirection and began punching and cussing at staff. Dr. Marvin paged and informed of pt condition. New orders received and PRN zydis given with very little effect. Pt continues to yell out and be demanding towards staff.
--- NOTE | 2020-11-08 19:15 | NUR ---
Patient refusing to stay in her room, she has been yelling in the hallway and disturbing peers . Patient is currently on isolation for ESBL in her urine and has had two incontinent episodes on the floor earlier this day. Patient was [facility] to [facility] at 1900 during shift change where she continued to yell non stop and curse at staff. She would sit in the chair across om the nurses station and yell insults and curse at staff. Patient has called this nurse "dumb bitch', "fucker", "dirty fucker", "sara" and has continued to yell "hello" and say "your not the boss of me". Patient is disturbing peers. Whike Dr Marvin was on unit rounding, she pounded on the window and yelled his name while he was interacting with other patients. Dr Marivn gave order to start Tegretol 200mg HS with CBC, CMP, Tegretol level on 11/11 0500. Patient given PRN zyprexa 5mg per order for agitation and behaviors at 1915. Patient has continued to yell at staff and intermittently says "i'll be nice" but then returns to yelling and cursing at staff. Will continue to monitor.
[2020-11-08] MEDS: carBAMazepine 200 MG TABLET PO SCH (20:01)
[2020-11-08] MEDS: traZODone 100 MG TABLET. PO SCH (20:01)
[2020-11-08] MEDS: MELATONIN 3 MG TABLET PO SCH (20:01)
--- NOTE | 2020-11-08 20:58 | PDOC ---
Exam Note: Marcelo Note: Please also refer to the separate dictated note~for this date of service dictated separately.~Patient seen individually. Discussed the patient with Nursing staff reviewed the chart.~Reviewed interim history and current functioning. Reviewed vital signs,~Labs/ Radiology~and current medications noted below. Continue current treatment with the changes noted in the dictated addendum note Assessment: Vital Signs/I&O: Vital Signs Date Time Temp Pulse Resp B/P (MAP) Pulse Ox O2 Delivery O2 Flow Rate FiO2 11/08/20 16:33 97.4 86 20 132/69 (90) 92 11/07/20 15:47 Room Air I & O 11/07/20 11/07/20 11/08/20 15:00 23:00 07:00 Intake Total 720 ml 360 ml 120 ml Balance 720 ml 360 ml 120 ml Labs: Laboratory Tests Test 11/08/20 07:24 11/08/20 11:57 11/08/20 17:21 11/08/20 19:14 Glucose (Fingerstick) 164 mg/dL (70-99) H 174 mg/dL (70-99) H 317 mg/dL (70-99) H 210 mg/dL (70-99) H Current Medications: Meds: Laboratory Tests Test 11/08/20 07:24 11/08/20 11:57 11/08/20 17:21 11/08/20 19:14 Glucose (Fingerstick) 164 mg/dL 174 mg/dL 317 mg/dL 210 mg/dL Current Medications Medications (Trade) Dose Ordered Sig/Carmina Route PRN Reason Start Time Stop Time Status Last Admin Dose Admin Acetaminophen (Tylenol) 650 mg PRN Q6HRS PRN PO MILD PAIN / TEMP > 100.3'F 11/03/20 23:15 Cancel Multi-Ingredient Ointment (Analgesic [place]) 1 estrellita PRN QID PRN TP MUSCLE PAIN 11/03/20 23:15 Al Hydroxide/Mg Hydroxide (Mylanta Plus Xs) 15 ml PRN AFTMEALHC PRN PO DYSPEPSIA 11/03/20 23:15 Magnesium Hydroxide (Milk Of Magnesia) 2,400 mg PRN QHS PRN PO CONSTIPATION 11/03/20 23:15 Levothyroxine Sodium (Synthroid) 25 mcg DAILY06 PO 11/04/20 06:00 11/08/20 05:18 Pantoprazole Sodium (Protonix) 40 mg DAILYAC PO 11/04/20 07:30 11/08/20 08:06 Acetaminophen (Tylenol) 650 mg PRN Q4HRS PRN PO PAIN 11/04/20 00:45 Aspirin (Aspirin Chewable) 81 mg DAILYWBKFT PO 11/04/20 08:00 11/08/20 08:05 Hydroxyzine Pamoate (Vistaril) 25 mg PRN Q6HRS PRN PO agitation/anxiety 11/04/20 00:45 11/08/20 15:13 Melatonin (Melatonin) 3 mg HS PO 11/04/20 21:00 11/08/20 20:01 Nystatin (Nystop) 1 estrellita PRN BID PRN TP RASH 11/04/20 00:45 Polyethylene Glycol (miraLAX) 17 gm DAILY PO 11/04/20 09:00 11/08/20 08:04 Quetiapine Fumarate (SEROquel) 25 mg BID PO 11/04/20 09:00 11/08/20 20:01 Quetiapine Fumarate (SEROquel) 100 mg TID PO 11/04/20 09:00 11/08/20 20:01 Trazodone HCl (Desyrel) 100 mg HS PO 11/04/20 21:00 11/08/20 20:01 Non-Formulary Medication (Ergocalciferol (Vitamin D2) (Vitamin D2)) 1,250 mcg WEEKLY PO 11/04/20 09:00 11/04/20 15:01 DC Citalopram Hydrobromide (CeleXA) 40 mg DAILY PO 11/04/20 09:00 11/05/20 18:18 DC 11/05/20 08:22 Fenofibrate (Tricor) 145 mg DAILY PO 11/04/20 09:00 11/08/20 08:05 Non-Formulary Medication (Guanfacine Hcl ) 1 tab BID PO 11/04/20 09:00 11/08/20 18:18 DC Non-Formulary Medication (Insulin Aspart (Novolog)) 9 unit TIDWMEALS SQ 11/04/20 08:00 UNV Non-Formulary Medication (Insulin Glargine,Hum.rec.anlog (Lantus Solostar)) 20 unit QHS SQ 11/04/20 21:00 UNV Non-Formulary Medication (Menthol/Zinc Oxide (Calmoseptine Ointment)) 71 gm BID TP 11/04/20 09:00 11/04/20 14:56 DC Insulin Glargine (Lantus Syringe) 20 unit QHS SQ 11/04/20 21:00 11/07/20 21:18 Insulin Human Lispro (HumaLOG) 9 units TIDWMEALS SQ 11/04/20 08:00 11/08/20 17:32 Vitamin D (Vitamin D3) 50,000 unit WEEKLY PO 11/05/20 09:00 11/05/20 08:24 Diphenhydramine HCl (Benadryl) 50 mg PRN Q6HRS PRN PO RASH 11/05/20 11:30 11/06/20 22:51 Oxcarbazepine (Trileptal) 300 mg BID PO 11/05/20 21:00 11/07/20 16:24 DC 11/07/20 09:08 Fluvoxamine Maleate (Luvox) 50 mg QHS PO 11/05/20 21:00 11/08/20 20:02 Levofloxacin (Levaquin) 250 mg DAILY06 PO 11/06/20 16:00 11/10/20 06:01 11/08/20 05:18 Lactobacillus Rhamnosus (Culturelle) 1 cap BID PO 11/07/20 21:00 11/08/20 20:02 Olanzapine (ZyPREXA ZYDIS) 5 mg PRN Q2HR PRN PO PSYCHOSIS 11/08/20 17:00 11/08/20 19:35 Carbamazepine (TEGretol) 200 mg QHS PO 11/08/20 21:00 11/08/20 20:01 Current Medications Medications (Trade) Dose Ordered Sig/Carmina Route PRN Reason Start Time Stop Time Status Last Admin Dose Admin Lactobacillus Rhamnosus (Culturelle) 1 cap BID PO 11/07/20 21:00 11/08/20 20:02 Olanzapine (ZyPREXA ZYDIS) 5 mg PRN Q2HR PRN PO PSYCHOSIS 11/08/20 17:00 11/08/20 19:35 Carbamazepine (TEGretol) 200 mg QHS PO 11/08/20 21:00 11/08/20 20:01 I have reviewed the current psychotropics carefully including drug interactions. Risk benefit ratio favors no change other than as noted in my dictated progress note. Diagnosis: Problems: (1) Anxiety disorder, unspecified (2) Bipolar affective, mixed, sev w/ psych (3) Impulse control disorder (4) Obsessive compulsive disorder IDA LAINEZ MD Nov 08, 2020 20:58
[2020-11-08] MEDS: INSULIN GLARGINE SYRINGE. SQ SCH (21:02)
--- NOTE | 2020-11-08 22:40 | NUR ---
Patient was calm enough to go to her room and lay down at around 2100. The zyprexa given at 1900 was not effective. HS medications were given at 2000 and patient was still yelling at that time, eventually stopping and sitting in the chair quietly. Nurse gave patient a snack and then the staff assisted the patient to her room to sleep. After patient laid down she once again started to call out and yell. It was unclear what she was saying, possibly "dummy". This nurse spoke to patient about yelling because it was disturbing peers, patient stated she would stop calling out as long as the door could remain open. Patient eventually stopped yelling and fell asleep. Will continue to monitor.
[2020-11-09] MEDS: levoFLOXacin 250 MG TABLET PO SCH (05:21)
[2020-11-09] MEDS: LEVOTHYROXINE 25 MCG TABLET. PO SCH (05:21)
[2020-11-09 06:04] VITALS: BP 162/83
[2020-11-09] MEDS: INSULIN LISPRO 300 UNITS/3 ML VIAL. SQ SCH ×3 (08:00→17:00)
--- NOTE | 2020-11-09 08:25 | PDOC ---
Exam Note: Marcelo Note: This note is a late entry for 11/08/2020 covers elements not covered in my initial note. Subjective: The patient was seen face to face in the evening of 11/08/2020 with Manuel HOLLINGSWORTH. Discussed with nursing staff, reviewed the chart. The patient slept 6-1/4 hours previous night. She has done a little better earlier in the day but by late afternoon and evening she was having a very difficult time, yelling, screaming, repetitive, loud, disruptive, had to be in the [facility] hallway. Security had to be called to intervene to calm her down. She was slamming doors, totally out of control. Review of Systems: No CV, , pulmonary, eye, ENT system symptoms on review. Reliability poor. Mental Status Exam: The patient is oriented to herself and situation. Speech is coherent, rapid, loud at times. Abstraction is fair. Computation is impaired. Language function is intact. Mood and affect labile, easily distracted. Laboratory Data: Reviewed. Impression: Bipolar 1 disorder mixed with psychotic features. Anxiety disorder unspecified. Impulse control disorder unspecified. Plan: The patients sister wants to avoid the patient being on Ativan, Zyprexa or Depakote. We do have Zyprexa p.r.n. She seems to be tolerating this well. She does also need a mood stabilizer. Sister is unwilling to have her back on Trileptal and we will start Tegretol 200 mg h.s. Check CBC, CMP, Tegretol level in 3 days. Adjust to reach therapeutic level. Assessment: Vital Signs/I&O: Vital Signs Date Time Temp Pulse Resp B/P (MAP) Pulse Ox O2 Delivery O2 Flow Rate FiO2 11/09/20 06:04 97.7 72 20 162/83 (109) 96 Room Air I & O 11/08/20 11/08/20 11/09/20 14:59 22:59 06:59 Intake Total 360 ml 120 ml Balance 360 ml 120 ml Labs: Laboratory Tests Test 11/08/20 11:57 11/08/20 17:21 11/08/20 19:14 11/09/20 07:23 Glucose (Fingerstick) 174 mg/dL (70-99) H 317 mg/dL (70-99) H 210 mg/dL (70-99) H 178 mg/dL (70-99) H Current Medications: Meds: Laboratory Tests Test 11/08/20 11:57 11/08/20 17:21 11/08/20 19:14 11/09/20 07:23 Glucose (Fingerstick) 174 mg/dL 317 mg/dL 210 mg/dL 178 mg/dL Current Medications Medications (Trade) Dose Ordered Sig/Carmina Route PRN Reason Start Time Stop Time Status Last Admin Dose Admin Acetaminophen (Tylenol) 650 mg PRN Q6HRS PRN PO MILD PAIN / TEMP > 100.3'F 11/03/20 23:15 Cancel Multi-Ingredient Ointment (Analgesic [place]) 1 estrellita PRN QID PRN TP MUSCLE PAIN 11/03/20 23:15 Al Hydroxide/Mg Hydroxide (Mylanta Plus Xs) 15 ml PRN AFTMEALHC PRN PO DYSPEPSIA 11/03/20 23:15 Magnesium Hydroxide (Milk Of Magnesia) 2,400 mg PRN QHS PRN PO CONSTIPATION 11/03/20 23:15 Levothyroxine Sodium (Synthroid) 25 mcg DAILY06 PO 11/04/20 06:00 11/09/20 05:21 Pantoprazole Sodium (Protonix) 40 mg DAILYAC PO 11/04/20 07:30 11/08/20 08:06 Acetaminophen (Tylenol) 650 mg PRN Q4HRS PRN PO PAIN 11/04/20 00:45 Aspirin (Aspirin Chewable) 81 mg DAILYWBKFT PO 11/04/20 08:00 11/08/20 08:05 Hydroxyzine Pamoate (Vistaril) 25 mg PRN Q6HRS PRN PO agitation/anxiety 11/04/20 00:45 11/08/20 15:13 Melatonin (Melatonin) 3 mg HS PO 11/04/20 21:00 11/08/20 20:01 Nystatin (Nystop) 1 estrellita PRN BID PRN TP RASH 11/04/20 00:45 Polyethylene Glycol (miraLAX) 17 gm DAILY PO 11/04/20 09:00 11/08/20 08:04 Quetiapine Fumarate (SEROquel) 25 mg BID PO 11/04/20 09:00 11/08/20 20:01 Quetiapine Fumarate (SEROquel) 100 mg TID PO 11/04/20 09:00 11/08/20 20:01 Trazodone HCl (Desyrel) 100 mg HS PO 11/04/20 21:00 11/08/20 20:01 Non-Formulary Medication (Ergocalciferol (Vitamin D2) (Vitamin D2)) 1,250 mcg WEEKLY PO 11/04/20 09:00 11/04/20 15:01 DC Citalopram Hydrobromide (CeleXA) 40 mg DAILY PO 11/04/20 09:00 11/05/20 18:18 DC 11/05/20 08:22 Fenofibrate (Tricor) 145 mg DAILY PO 11/04/20 09:00 11/08/20 08:05 Non-Formulary Medication (Guanfacine Hcl ) 1 tab BID PO 11/04/20 09:00 11/08/20 18:18 DC Non-Formulary Medication (Insulin Aspart (Novolog)) 9 unit TIDWMEALS SQ 11/04/20 08:00 UNV Non-Formulary Medication (Insulin Glargine,Hum.rec.anlog (Lantus Solostar)) 20 unit QHS SQ 11/04/20 21:00 UNV Non-Formulary Medication (Menthol/Zinc Oxide (Calmoseptine Ointment)) 71 gm BID TP 11/04/20 09:00 11/04/20 14:56 DC Insulin Glargine (Lantus Syringe) 20 unit QHS SQ 11/04/20 21:00 11/08/20 21:02 Insulin Human Lispro (HumaLOG) 9 units TIDWMEALS SQ 11/04/20 08:00 11/08/20 17:32 Vitamin D (Vitamin D3) 50,000 unit WEEKLY PO 11/05/20 09:00 11/05/20 08:24 Diphenhydramine HCl (Benadryl) 50 mg PRN Q6HRS PRN PO RASH 11/05/20 11:30 11/06/20 22:51 Oxcarbazepine (Trileptal) 300 mg BID PO 11/05/20 21:00 11/07/20 16:24 DC 11/07/20 09:08 Fluvoxamine Maleate (Luvox) 50 mg QHS PO 11/05/20 21:00 11/08/20 20:02 Levofloxacin (Levaquin) 250 mg DAILY06 PO 11/06/20 16:00 11/10/20 06:01 11/09/20 05:21 Lactobacillus Rhamnosus (Culturelle) 1 cap BID PO 11/07/20 21:00 11/08/20 20:02 Olanzapine (ZyPREXA ZYDIS) 5 mg PRN Q2HR PRN PO PSYCHOSIS 11/08/20 17:00 11/08/20 19:35 Carbamazepine (TEGretol) 200 mg QHS PO 11/08/20 21:00 11/08/20 20:01 Current Medications Medications (Trade) Dose Ordered Sig/Carmina Route PRN Reason Start Time Stop Time Status Last Admin Dose Admin Olanzapine (ZyPREXA ZYDIS) 5 mg PRN Q2HR PRN PO PSYCHOSIS 11/08/20 17:00 11/08/20 19:35 Carbamazepine (TEGretol) 200 mg QHS PO 11/08/20 21:00 11/08/20 20:01 I have reviewed the current psychotropics carefully including drug interactions. Risk benefit ratio favors no change other than as noted in my dictated progress note. Diagnosis: Problems: (1) Obsessive compulsive disorder (2) Impulse control disorder (3) Anxiety disorder, unspecified (4) Bipolar affective, mixed, sev w/ psych (5) Intellectual disability IDA LAINEZ MD Nov 09, 2020 08:25
[2020-11-09] MEDS: FENOFIBRATE NANOCRYSTALLIZED 145 MG TABLET PO SCH (11:30)
[2020-11-09] MEDS: QUEtiapine 25 MG TABLET. PO SCH ×2 (11:30→20:07)
[2020-11-09] MEDS: POLYETHYLENE GLYCOL 3350 17 GM PACKET. PO SCH (11:30)
[2020-11-09] MEDS: QUEtiapine 100 MG TABLET. PO SCH ×3 (11:30→20:07)
[2020-11-09] MEDS: LACTOBACILLUS RHAMNOSUS GG 1 CAPSULE. PO SCH ×2 (11:30→20:07)
[2020-11-09] MEDS: ASPIRIN CHEWABLE 81 MG TABLET. PO SCH (11:30)
[2020-11-09] MEDS: PANTOPRAZOLE 40 MG TABLET. PO SCH (11:30)
[2020-11-09 16:11] VITALS: BP 114/69
--- NOTE | 2020-11-09 17:48 | NUR ---
Patient confined to room for contact precautions. Patient is watching genaro and doing good today. Has not been yelling out as much. Spoke to Ricky and she hasn't asked to talk to her any further. She has not had any yelling bouts. Patient is calm and cooperative and takes medications whole with no problems. No further concerns at this time.
--- NOTE | 2020-11-09 19:19 | NUR ---
patient in hallway and not staying in her room. She is yelling "hello" from her room. PRN zyprexa given for agitation.
[2020-11-09] MEDS: traZODone 100 MG TABLET. PO SCH (20:07)
[2020-11-09] MEDS: carBAMazepine 200 MG TABLET PO SCH (20:07)
[2020-11-09] MEDS: MELATONIN 3 MG TABLET PO SCH (20:07)
--- NOTE | 2020-11-09 20:14 | NUR ---
Patient is yelling out, cussing at staff and screaming "help" which is disrupting others. There is no reason for patient to be yelling help. She has been toileted and showered. Patient refuses to stay in her room and patient is on isolation for ESBL in her urine, she continues to come out of room and yell "help" and curse at staff. Patient has previously been given zydis at the beginning of this shift for these behaviors. It was not effective. Patient is now in [facility] and is knocking on the window asking to call Ricky, stating "I'm a good girl" then calling staff "dirty fucker", "shit ass" and "bastard". She then begins to yell "hello' repetitively and ask "can I call Ricky". Patient has been advised that she has lost her privilege of making phone calls tonight due to her behavior. Night medications were given whole with water. Patient initially refused them but then when nurse stated she would call Dr Marvin and let him know, she took the medications. Will continue to monitor.
[2020-11-09] MEDS: INSULIN GLARGINE SYRINGE. SQ SCH (21:06)
--- NOTE | 2020-11-09 21:27 | NUR ---
Patient became calm and quiet at around 2114 and was assisted to bed by staff. She has not yelled out since laying down. Will continue to monitor.
--- NOTE | 2020-11-09 21:29 | PDOC ---
Exam Note: Marcelo Note: Please also refer to the separate dictated note~for this date of service dictated separately.~Patient seen individually. Discussed the patient with Nursing staff reviewed the chart.~Reviewed interim history and current functioning. Reviewed vital signs,~Labs/ Radiology~and current medications noted below. Continue current treatment with the changes noted in the dictated addendum note Assessment: Vital Signs/I&O: Vital Signs Date Time Temp Pulse Resp B/P (MAP) Pulse Ox O2 Delivery O2 Flow Rate FiO2 11/09/20 16:11 97.8 87 20 114/69 (84) 97 Room Air I & O 11/08/20 11/08/20 11/09/20 14:59 22:59 06:59 Intake Total 360 ml 120 ml Balance 360 ml 120 ml Labs: Laboratory Tests Test 11/09/20 07:23 11/09/20 11:32 11/09/20 17:10 11/09/20 19:04 Glucose (Fingerstick) 178 mg/dL (70-99) H 218 mg/dL (70-99) H 260 mg/dL (70-99) H 316 mg/dL (70-99) H Current Medications: Meds: Laboratory Tests Test 11/09/20 07:23 11/09/20 11:32 11/09/20 17:10 11/09/20 19:04 Glucose (Fingerstick) 178 mg/dL 218 mg/dL 260 mg/dL 316 mg/dL Current Medications Medications (Trade) Dose Ordered Sig/Carmina Route PRN Reason Start Time Stop Time Status Last Admin Dose Admin Acetaminophen (Tylenol) 650 mg PRN Q6HRS PRN PO MILD PAIN / TEMP > 100.3'F 11/03/20 23:15 Cancel Multi-Ingredient Ointment (Analgesic [place]) 1 estrellita PRN QID PRN TP MUSCLE PAIN 11/03/20 23:15 Al Hydroxide/Mg Hydroxide (Mylanta Plus Xs) 15 ml PRN AFTMEALHC PRN PO DYSPEPSIA 11/03/20 23:15 Magnesium Hydroxide (Milk Of Magnesia) 2,400 mg PRN QHS PRN PO CONSTIPATION 11/03/20 23:15 Levothyroxine Sodium (Synthroid) 25 mcg DAILY06 PO 11/04/20 06:00 11/09/20 05:21 Pantoprazole Sodium (Protonix) 40 mg DAILYAC PO 11/04/20 07:30 11/09/20 11:30 Acetaminophen (Tylenol) 650 mg PRN Q4HRS PRN PO PAIN 11/04/20 00:45 Aspirin (Aspirin Chewable) 81 mg DAILYWBKFT PO 11/04/20 08:00 11/09/20 11:30 Hydroxyzine Pamoate (Vistaril) 25 mg PRN Q6HRS PRN PO agitation/anxiety 11/04/20 00:45 11/08/20 15:13 Melatonin (Melatonin) 3 mg HS PO 11/04/20 21:00 11/09/20 20:07 Nystatin (Nystop) 1 estrellita PRN BID PRN TP RASH 11/04/20 00:45 Polyethylene Glycol (miraLAX) 17 gm DAILY PO 11/04/20 09:00 11/09/20 11:30 Quetiapine Fumarate (SEROquel) 25 mg BID PO 11/04/20 09:00 11/09/20 20:07 Quetiapine Fumarate (SEROquel) 100 mg TID PO 11/04/20 09:00 11/09/20 20:07 Trazodone HCl (Desyrel) 100 mg HS PO 11/04/20 21:00 11/09/20 20:07 Non-Formulary Medication (Ergocalciferol (Vitamin D2) (Vitamin D2)) 1,250 mcg WEEKLY PO 11/04/20 09:00 11/04/20 15:01 DC Citalopram Hydrobromide (CeleXA) 40 mg DAILY PO 11/04/20 09:00 11/05/20 18:18 DC 11/05/20 08:22 Fenofibrate (Tricor) 145 mg DAILY PO 11/04/20 09:00 11/09/20 11:30 Non-Formulary Medication (Guanfacine Hcl ) 1 tab BID PO 11/04/20 09:00 11/08/20 18:18 DC Non-Formulary Medication (Insulin Aspart (Novolog)) 9 unit TIDWMEALS SQ 11/04/20 08:00 UNV Non-Formulary Medication (Insulin Glargine,Hum.rec.anlog (Lantus Solostar)) 20 unit QHS SQ 11/04/20 21:00 UNV Non-Formulary Medication (Menthol/Zinc Oxide (Calmoseptine Ointment)) 71 gm BID TP 11/04/20 09:00 11/04/20 14:56 DC Insulin Glargine (Lantus Syringe) 20 unit QHS SQ 11/04/20 21:00 11/09/20 21:06 Insulin Human Lispro (HumaLOG) 9 units TIDWMEALS SQ 11/04/20 08:00 11/09/20 17:00 Vitamin D (Vitamin D3) 50,000 unit WEEKLY PO 11/05/20 09:00 11/05/20 08:24 Diphenhydramine HCl (Benadryl) 50 mg PRN Q6HRS PRN PO RASH 11/05/20 11:30 11/06/20 22:51 Oxcarbazepine (Trileptal) 300 mg BID PO 11/05/20 21:00 11/07/20 16:24 DC 11/07/20 09:08 Fluvoxamine Maleate (Luvox) 50 mg QHS PO 11/05/20 21:00 11/09/20 20:07 Levofloxacin (Levaquin) 250 mg DAILY06 PO 11/06/20 16:00 11/10/20 06:01 11/09/20 05:21 Lactobacillus Rhamnosus (Culturelle) 1 cap BID PO 11/07/20 21:00 11/09/20 20:07 Olanzapine (ZyPREXA ZYDIS) 5 mg PRN Q2HR PRN PO PSYCHOSIS 11/08/20 17:00 11/09/20 19:19 Carbamazepine (TEGretol) 200 mg QHS PO 11/08/20 21:00 11/09/20 20:07 I have reviewed the current psychotropics carefully including drug interactions. Risk benefit ratio favors no change other than as noted in my dictated progress note. Diagnosis: Problems: (1) Obsessive compulsive disorder (2) Impulse control disorder (3) Bipolar affective, mixed, sev w/ psych (4) Intellectual disability IDA LAINEZ MD Nov 09, 2020 21:29
--- NOTE | 2020-11-10 00:31 | NUR ---
Patient has been up and yelling out "help" multiple times this night. Nurse has gone to room five times since 2129 to see if patient needed anything. Patient states she does not need anything. Nurse advised patient to stop yelling out or the door would need to be closed because she is disturbing other patients. Patient states she will not yell out.
[2020-11-10] MEDS: LEVOTHYROXINE 25 MCG TABLET. PO SCH (05:30)
[2020-11-10] MEDS: levoFLOXacin 250 MG TABLET PO SCH (05:30)
[2020-11-10 06:03] VITALS: BP 144/74
[2020-11-10] MEDS: INSULIN LISPRO 300 UNITS/3 ML VIAL. SQ SCH ×3 (08:28→17:10)
[2020-11-10] MEDS: QUEtiapine 25 MG TABLET. PO SCH ×2 (08:28→20:32)
[2020-11-10] MEDS: LACTOBACILLUS RHAMNOSUS GG 1 CAPSULE. PO SCH ×2 (08:28→20:32)
[2020-11-10] MEDS: PANTOPRAZOLE 40 MG TABLET. PO SCH (08:28)
[2020-11-10] MEDS: FENOFIBRATE NANOCRYSTALLIZED 145 MG TABLET PO SCH (08:28)
[2020-11-10] MEDS: QUEtiapine 100 MG TABLET. PO SCH ×3 (08:29→20:32)
[2020-11-10] MEDS: POLYETHYLENE GLYCOL 3350 17 GM PACKET. PO SCH (08:29)
[2020-11-10] MEDS: ASPIRIN CHEWABLE 81 MG TABLET. PO SCH (08:29)
--- NOTE | 2020-11-10 09:28 | NUR ---
THIS RN SPOKE WITH GEOLOGIST PETROLEUM, PATIENT IS ON CONTACT PRECAUTION FOR ESBL, PATIENT TOOK HER LAST DOSE OF LEVAQUIN THIS AM , PATIENT CAN COME OFF THE ISOLATION LONG SHE DOES NOT HAVE ANY S/S R/T UTI.
--- NOTE | 2020-11-10 12:38 | NUR ---
PATIENT IS AWAKE IN A HALLWAY BY THE NURSES STATION UPON ASSESSMENT, REQUESTED TO MAKE A PHONE CALL A FEW TIMES. PATIENT WAS REDIRECTED TO THE ROOM. PATIENT WAS INFORMED THAT SHE CAN HAVE ONLY ONE PHONE CALL PER DAY. PATIENT DEMONSTRATED UNDERSTANDING, HOWEVER STILL KEEP ASKING FOR THE PHONE CALLS MULTIPLE TIMES. PATIENT IS COOPERATIVE AND MED COMPLIANT, YELLING AT TIMES IN A ROOM, INSTRUCTED NOT TO RAISE HER VOICE AND SPEAK CALMLY, PATIENT AGREED TO TRY NOT TO YELL.
[2020-11-10 17:40] VITALS: BP 107/67
[2020-11-10] MEDS: hydrOXYzine PAMOATE 25 MG CAPSULE PO PRN (17:54)
--- NOTE | 2020-11-10 18:00 | NUR ---
PATIENT FREQUENTLY YELLING FOR HELP IN HER ROOM, PATIENT IS DEMANDING TO MAKE A PHONE CALL, KEPPS INTERRUPTING OTHER RESIDENTS OR STAFF , INTRUSIVE, REPEATING HERSELF MULTIPLE TIMES. HYDROXYZINE PRN GIVEN ORDERED . PATIENT IS CURRENTLY IN A DAY ROOM WATCHING TV.
[2020-11-10] MEDS: MELATONIN 3 MG TABLET PO SCH (20:32)
[2020-11-10] MEDS: carBAMazepine 200 MG TABLET PO SCH (20:32)
[2020-11-10] MEDS: traZODone 100 MG TABLET. PO SCH (20:32)
--- NOTE | 2020-11-10 20:51 | PDOC ---
Exam Note: Marcelo Note: Please also refer to the separate dictated note~for this date of service dictated separately.~Patient seen individually. Discussed the patient with Nursing staff reviewed the chart.~Reviewed interim history and current functioning. Reviewed vital signs,~Labs/ Radiology~and current medications noted below. Continue current treatment with the changes noted in the dictated addendum note Assessment: Vital Signs/I&O: Vital Signs Date Time Temp Pulse Resp B/P (MAP) Pulse Ox O2 Delivery O2 Flow Rate FiO2 11/10/20 17:40 98.1 81 16 107/67 (80) 92 11/10/20 06:03 Room Air I & O 11/09/20 11/09/20 11/10/20 15:00 23:00 07:00 Intake Total 840 ml 360 ml Balance 840 ml 360 ml Labs: Laboratory Tests Test 11/10/20 07:18 11/10/20 11:19 11/10/20 16:09 11/10/20 19:16 Glucose (Fingerstick) 144 mg/dL (70-99) H 239 mg/dL (70-99) H 291 mg/dL (70-99) H 270 mg/dL (70-99) H Current Medications: Meds: Laboratory Tests Test 11/10/20 07:18 11/10/20 11:19 11/10/20 16:09 11/10/20 19:16 Glucose (Fingerstick) 144 mg/dL 239 mg/dL 291 mg/dL 270 mg/dL Current Medications Medications (Trade) Dose Ordered Sig/Carmina Route PRN Reason Start Time Stop Time Status Last Admin Dose Admin Acetaminophen (Tylenol) 650 mg PRN Q6HRS PRN PO MILD PAIN / TEMP > 100.3'F 11/03/20 23:15 Cancel Multi-Ingredient Ointment (Analgesic [place]) 1 estrellita PRN QID PRN TP MUSCLE PAIN 11/03/20 23:15 Al Hydroxide/Mg Hydroxide (Mylanta Plus Xs) 15 ml PRN AFTMEALHC PRN PO DYSPEPSIA 11/03/20 23:15 Magnesium Hydroxide (Milk Of Magnesia) 2,400 mg PRN QHS PRN PO CONSTIPATION 11/03/20 23:15 Levothyroxine Sodium (Synthroid) 25 mcg DAILY06 PO 11/04/20 06:00 11/10/20 05:30 Pantoprazole Sodium (Protonix) 40 mg DAILYAC PO 11/04/20 07:30 11/10/20 08:28 Acetaminophen (Tylenol) 650 mg PRN Q4HRS PRN PO PAIN 11/04/20 00:45 Aspirin (Aspirin Chewable) 81 mg DAILYWBKFT PO 11/04/20 08:00 11/10/20 08:29 Hydroxyzine Pamoate (Vistaril) 25 mg PRN Q6HRS PRN PO agitation/anxiety 11/04/20 00:45 11/10/20 17:54 Melatonin (Melatonin) 3 mg HS PO 11/04/20 21:00 11/10/20 20:32 Nystatin (Nystop) 1 estrellita PRN BID PRN TP RASH 11/04/20 00:45 Polyethylene Glycol (miraLAX) 17 gm DAILY PO 11/04/20 09:00 11/10/20 08:29 Quetiapine Fumarate (SEROquel) 25 mg BID PO 11/04/20 09:00 11/10/20 20:32 Quetiapine Fumarate (SEROquel) 100 mg TID PO 11/04/20 09:00 11/10/20 20:32 Trazodone HCl (Desyrel) 100 mg HS PO 11/04/20 21:00 11/10/20 20:32 Non-Formulary Medication (Ergocalciferol (Vitamin D2) (Vitamin D2)) 1,250 mcg WEEKLY PO 11/04/20 09:00 11/04/20 15:01 DC Citalopram Hydrobromide (CeleXA) 40 mg DAILY PO 11/04/20 09:00 11/05/20 18:18 DC 11/05/20 08:22 Fenofibrate (Tricor) 145 mg DAILY PO 11/04/20 09:00 11/10/20 08:28 Non-Formulary Medication (Guanfacine Hcl ) 1 tab BID PO 11/04/20 09:00 11/08/20 18:18 DC Non-Formulary Medication (Insulin Aspart (Novolog)) 9 unit TIDWMEALS SQ 11/04/20 08:00 UNV Non-Formulary Medication (Insulin Glargine,Hum.rec.anlog (Lantus Solostar)) 20 unit QHS SQ 11/04/20 21:00 UNV Non-Formulary Medication (Menthol/Zinc Oxide (Calmoseptine Ointment)) 71 gm BID TP 11/04/20 09:00 11/04/20 14:56 DC Insulin Glargine (Lantus Syringe) 20 unit QHS SQ 11/04/20 21:00 11/09/20 21:06 Insulin Human Lispro (HumaLOG) 9 units TIDWMEALS SQ 11/04/20 08:00 11/10/20 17:10 Vitamin D (Vitamin D3) 50,000 unit WEEKLY PO 11/05/20 09:00 11/05/20 08:24 Diphenhydramine HCl (Benadryl) 50 mg PRN Q6HRS PRN PO RASH 11/05/20 11:30 11/06/20 22:51 Oxcarbazepine (Trileptal) 300 mg BID PO 11/05/20 21:00 11/07/20 16:24 DC 11/07/20 09:08 Fluvoxamine Maleate (Luvox) 50 mg QHS PO 11/05/20 21:00 11/10/20 20:32 Levofloxacin (Levaquin) 250 mg DAILY06 PO 11/06/20 16:00 11/10/20 06:01 DC 11/10/20 05:30 Lactobacillus Rhamnosus (Culturelle) 1 cap BID PO 11/07/20 21:00 11/10/20 20:32 Olanzapine (ZyPREXA ZYDIS) 5 mg PRN Q2HR PRN PO PSYCHOSIS 11/08/20 17:00 11/09/20 19:19 Carbamazepine (TEGretol) 200 mg QHS PO 11/08/20 21:00 11/10/20 20:32 I have reviewed the current psychotropics carefully including drug interactions. Risk benefit ratio favors no change other than as noted in my dictated progress note. Diagnosis: Problems: (1) Obsessive compulsive disorder (2) Impulse control disorder (3) Intellectual disability (4) Bipolar affective, mixed, sev w/ psych (5) Anxiety disorder, unspecified IDA LAINEZ MD Nov 10, 2020 20:51
[2020-11-10] MEDS: INSULIN GLARGINE SYRINGE. SQ SCH (21:42)
--- NOTE | 2020-11-11 01:09 | NUR ---
Last evening pt was in day room or hallway demanding, yelling and cussing at staff. She could be redirected momentarily then would resume harassment of staff. She took meds whole then called Ricky and went to bed and fell to sleep.
[2020-11-11] MEDS: LEVOTHYROXINE 25 MCG TABLET. PO SCH (05:30)
[2020-11-11 06:20] VITALS: BP 140/81
[2020-11-11 06:53] LABS: BASO # 0.1 x10^3/uL (0.0-0.2); BASO % 2 % (0-3); EOS # 0.4 x10^3/uL (0.0-0.7); EOS % 5 % (0-3); HEMATOCRIT 39.8 % (36.0-47.0); HEMOGLOBIN 13.3 g/dL (12.0-15.5); LYMPH # 2.9 x10^3/uL (1.0-4.8); LYMPH % 41 % (24-48); MEAN CORPUSCULAR HEMOGLOBIN 30 pg (25-35); MEAN CORPUSCULAR HGB CONC 34 g/dL (31-37); MEAN CORPUSCULAR VOLUME 89 fL (79-100); MONO # 0.4 x10^3/uL (0.0-1.1); MONO % 6 % (0-9); NEUT # 3.2 x10^3uL (1.8-7.7); NEUT % 46 % (31-73); PLATELET COUNT 123 x10^3/uL (140-400); RED BLOOD COUNT 4.47 x10^6/uL (3.50-5.40); RED CELL DISTRIBUTION WIDTH 13.3 % (11.5-14.5)
[2020-11-11 07:06] LABS: ALBUMIN 3.3 g/dL (3.4-5.0); ALBUMIN/GLOBULIN RATIO 0.9 (1.0-1.7); CALCIUM 8.5 mg/dL (8.5-10.1); GFR 54.2; POTASSIUM 3.8 mmol/L (3.5-5.1); TOTAL BILIRUBIN 0.3 mg/dL (0.2-1.0); TOTAL PROTEIN 6.9 g/dL (6.4-8.2)
[2020-11-11] MEDS: ASPIRIN CHEWABLE 81 MG TABLET. PO SCH (08:19)
[2020-11-11] MEDS: POLYETHYLENE GLYCOL 3350 17 GM PACKET. PO SCH (08:19)
[2020-11-11] MEDS: LACTOBACILLUS RHAMNOSUS GG 1 CAPSULE. PO SCH ×2 (08:19→20:11)
[2020-11-11] MEDS: PANTOPRAZOLE 40 MG TABLET. PO SCH (08:19)
[2020-11-11] MEDS: FENOFIBRATE NANOCRYSTALLIZED 145 MG TABLET PO SCH (08:19)
[2020-11-11] MEDS: QUEtiapine 100 MG TABLET. PO SCH ×3 (08:20→20:12)
[2020-11-11] MEDS: INSULIN LISPRO 300 UNITS/3 ML VIAL. SQ SCH ×3 (08:20→17:15)
[2020-11-11] MEDS: QUEtiapine 25 MG TABLET. PO SCH ×2 (08:20→20:12)
--- NOTE | 2020-11-11 08:58 | PDOC ---
Exam Note: Marcelo Note: This note is a late entry for 11/09/2020 covers elements not covered in my initial note. Subjective: The patient was seen face to face in the evening of 11/09/2020 with Janice HOLLINGSWORTH. Discussed with nursing staff, reviewed the chart. The patient slept 6-1/4 hours previous night. She has been watching cartoons on [employer] that was initiated by Janice HOLLINGSWORTH, quite successfully to distract the patient, otherwise, she remains obsessive, repetitive with frequent yelling. She has not received p.r.n. since she has been busy watching her shows. Review of Systems: No CV, , pulmonary, eye, ENT system symptoms on review. Mental Status Exam: The patient is oriented to herself and situation. Speech is coherent, rapid, loud at times, repeatedly asking me about being discharged Sunday and I met with her several times to answer this. She keeps coming back following me around the unit. Insight is limited. Judgment marginal. Language function is intact. Attention span is short. Mood and affect remains labile, anxious, obsessive. Laboratory Data: Reviewed. Impression: Bipolar 1 disorder mixed with psychotic features. Anxiety disorder unspecified. Impulse control disorder unspecified. Plan: Continue psychotropics from initial note. We are gradually adjusting the Luvox. She remains on Seroquel, trazodone, melatonin and Tegretol. We will make further adjustments as clinically indicated. Reviewed drug interactions and risk-benefit ratio, which favors no further change at this time. Assessment: Vital Signs/I&O: Vital Signs Date Time Temp Pulse Resp B/P (MAP) Pulse Ox O2 Delivery O2 Flow Rate FiO2 11/11/20 06:20 97.3 74 20 140/81 (100) 95 Room Air I & O 11/10/20 11/10/20 11/11/20 14:59 22:59 06:59 Intake Total 680 ml 580 ml Balance 680 ml 580 ml Labs: Laboratory Tests Test 11/10/20 11:19 11/10/20 16:09 11/10/20 19:16 11/11/20 06:32 Glucose (Fingerstick) 239 mg/dL (70-99) H 291 mg/dL (70-99) H 270 mg/dL (70-99) H White Blood Count 7.0 x10^3/uL (4.0-11.0) Red Blood Count 4.47 x10^6/uL (3.50-5.40) Hemoglobin 13.3 g/dL (12.0-15.5) Hematocrit 39.8 % (36.0-47.0) Mean Corpuscular Volume 89 fL (79-100) Mean Corpuscular Hemoglobin 30 pg (25-35) Mean Corpuscular Hemoglobin Concent 34 g/dL (31-37) Red Cell Distribution Width 13.3 % (11.5-14.5) Platelet Count 123 x10^3/uL (140-400) L Neutrophils (%) (Auto) 46 % (31-73) Lymphocytes (%) (Auto) 41 % (24-48) Monocytes (%) (Auto) 6 % (0-9) Eosinophils (%) (Auto) 5 % (0-3) H Basophils (%) (Auto) 2 % (0-3) Neutrophils # (Auto) 3.2 x10^3uL (1.8-7.7) Lymphocytes # (Auto) 2.9 x10^3/uL (1.0-4.8) Monocytes # (Auto) 0.4 x10^3/uL (0.0-1.1) Eosinophils # (Auto) 0.4 x10^3/uL (0.0-0.7) Basophils # (Auto) 0.1 x10^3/uL (0.0-0.2) Sodium Level 140 mmol/L (136-145) Potassium Level 3.8 mmol/L (3.5-5.1) Chloride Level 104 mmol/L (98-107) Carbon Dioxide Level 31 mmol/L (21-32) Anion Gap 5 (6-14) L Blood Urea Nitrogen 22 mg/dL (7-20) H Creatinine 1.0 mg/dL (0.6-1.0) Estimated GFR (Cockcroft-Gault) 54.2 BUN/Creatinine Ratio 22 (6-20) H Glucose Level 169 mg/dL (70-99) H Calcium Level 8.5 mg/dL (8.5-10.1) Total Bilirubin 0.3 mg/dL (0.2-1.0) Aspartate Amino Transferase (AST) 16 U/L (15-37) Alanine Aminotransferase (ALT) 21 U/L (14-59) Alkaline Phosphatase 63 U/L (46-116) Total Protein 6.9 g/dL (6.4-8.2) Albumin 3.3 g/dL (3.4-5.0) L Albumin/Globulin Ratio 0.9 (1.0-1.7) L Test 11/11/20 07:26 Glucose (Fingerstick) 156 mg/dL (70-99) H Current Medications: Meds: Laboratory Tests Test 11/10/20 11:19 11/10/20 16:09 11/10/20 19:16 11/11/20 06:32 Glucose (Fingerstick) 239 mg/dL 291 mg/dL 270 mg/dL White Blood Count 7.0 x10^3/uL Red Blood Count 4.47 x10^6/uL Hemoglobin 13.3 g/dL Hematocrit 39.8 % Mean Corpuscular Volume 89 fL Mean Corpuscular Hemoglobin 30 pg Mean Corpuscular Hemoglobin Concent 34 g/dL Red Cell Distribution Width 13.3 % Platelet Count 123 x10^3/uL Neutrophils (%) (Auto) 46 % Lymphocytes (%) (Auto) 41 % Monocytes (%) (Auto) 6 % Eosinophils (%) (Auto) 5 % Basophils (%) (Auto) 2 % Neutrophils # (Auto) 3.2 x10^3uL Lymphocytes # (Auto) 2.9 x10^3/uL Monocytes # (Auto) 0.4 x10^3/uL Eosinophils # (Auto) 0.4 x10^3/uL Basophils # (Auto) 0.1 x10^3/uL Sodium Level 140 mmol/L Potassium Level 3.8 mmol/L Chloride Level 104 mmol/L Carbon Dioxide Level 31 mmol/L Anion Gap 5 Blood Urea Nitrogen 22 mg/dL Creatinine 1.0 mg/dL Estimated GFR (Cockcroft-Gault) 54.2 BUN/Creatinine Ratio 22 Glucose Level 169 mg/dL Calcium Level 8.5 mg/dL Total Bilirubin 0.3 mg/dL Aspartate Amino Transf (AST/SGOT) 16 U/L Alanine Aminotransferase (ALT/SGPT) 21 U/L Alkaline Phosphatase 63 U/L Total Protein 6.9 g/dL Albumin 3.3 g/dL Albumin/Globulin Ratio 0.9 Test 11/11/20 07:26 Glucose (Fingerstick) 156 mg/dL Current Medications Medications (Trade) Dose Ordered Sig/Carmina Route PRN Reason Start Time Stop Time Status Last Admin Dose Admin Acetaminophen (Tylenol) 650 mg PRN Q6HRS PRN PO MILD PAIN / TEMP > 100.3'F 11/03/20 23:15 Cancel Multi-Ingredient Ointment (Analgesic [place]) 1 estrellita PRN QID PRN TP MUSCLE PAIN 11/03/20 23:15 Al Hydroxide/Mg Hydroxide (Mylanta Plus Xs) 15 ml PRN AFTMEALHC PRN PO DYSPEPSIA 11/03/20 23:15 Magnesium Hydroxide (Milk Of Magnesia) 2,400 mg PRN QHS PRN PO CONSTIPATION 11/03/20 23:15 Levothyroxine Sodium (Synthroid) 25 mcg DAILY06 PO 11/04/20 06:00 11/11/20 05:30 Pantoprazole Sodium (Protonix) 40 mg DAILYAC PO 11/04/20 07:30 11/11/20 08:19 Acetaminophen (Tylenol) 650 mg PRN Q4HRS PRN PO PAIN 11/04/20 00:45 Aspirin (Aspirin Chewable) 81 mg DAILYWBKFT PO 11/04/20 08:00 11/11/20 08:19 Hydroxyzine Pamoate (Vistaril) 25 mg PRN Q6HRS PRN PO agitation/anxiety 11/04/20 00:45 11/10/20 17:54 Melatonin (Melatonin) 3 mg HS PO 11/04/20 21:00 11/10/20 20:32 Nystatin (Nystop) 1 estrellita PRN BID PRN TP RASH 11/04/20 00:45 Polyethylene Glycol (miraLAX) 17 gm DAILY PO 11/04/20 09:00 11/11/20 08:19 Quetiapine Fumarate (SEROquel) 25 mg BID PO 11/04/20 09:00 11/11/20 08:20 Quetiapine Fumarate (SEROquel) 100 mg TID PO 11/04/20 09:00 11/11/20 08:20 Trazodone HCl (Desyrel) 100 mg HS PO 11/04/20 21:00 11/10/20 20:32 Non-Formulary Medication (Ergocalciferol (Vitamin D2) (Vitamin D2)) 1,250 mcg WEEKLY PO 11/04/20 09:00 11/04/20 15:01 DC Citalopram Hydrobromide (CeleXA) 40 mg DAILY PO 11/04/20 09:00 11/05/20 18:18 DC 11/05/20 08:22 Fenofibrate (Tricor) 145 mg DAILY PO 11/04/20 09:00 11/11/20 08:19 Non-Formulary Medication (Guanfacine Hcl ) 1 tab BID PO 11/04/20 09:00 11/08/20 18:18 DC Non-Formulary Medication (Insulin Aspart (Novolog)) 9 unit TIDWMEALS SQ 11/04/20 08:00 UNV Non-Formulary Medication (Insulin Glargine,Hum.rec.anlog (Lantus Solostar)) 20 unit QHS SQ 11/04/20 21:00 UNV Non-Formulary Medication (Menthol/Zinc Oxide (Calmoseptine Ointment)) 71 gm BID TP 11/04/20 09:00 11/04/20 14:56 DC Insulin Glargine (Lantus Syringe) 20 unit QHS SQ 11/04/20 21:00 11/10/20 21:42 Insulin Human Lispro (HumaLOG) 9 units TIDWMEALS SQ 11/04/20 08:00 11/11/20 08:20 Vitamin D (Vitamin D3) 50,000 unit WEEKLY PO 11/05/20 09:00 11/05/20 08:24 Diphenhydramine HCl (Benadryl) 50 mg PRN Q6HRS PRN PO RASH 11/05/20 11:30 11/06/20 22:51 Oxcarbazepine (Trileptal) 300 mg BID PO 11/05/20 21:00 11/07/20 16:24 DC 11/07/20 09:08 Fluvoxamine Maleate (Luvox) 50 mg QHS PO 11/05/20 21:00 11/10/20 20:32 Levofloxacin (Levaquin) 250 mg DAILY06 PO 11/06/20 16:00 11/10/20 06:01 DC 11/10/20 05:30 Lactobacillus Rhamnosus (Culturelle) 1 cap BID PO 11/07/20 21:00 11/11/20 08:19 Olanzapine (ZyPREXA ZYDIS) 5 mg PRN Q2HR PRN PO PSYCHOSIS 11/08/20 17:00 11/09/20 19:19 Carbamazepine (TEGretol) 200 mg QHS PO 11/08/20 21:00 11/10/20 20:32 I have reviewed the current psychotropics carefully including drug interactions. Risk benefit ratio favors no change other than as noted in my dictated progress note. Diagnosis: Problems: (1) Impulse control disorder (2) Bipolar affective, mixed, sev w/ psych (3) Anxiety disorder, unspecified (4) Obsessive compulsive disorder (5) Intellectual disability IDA LAINEZ MD Nov 11, 2020 08:58
--- NOTE | 2020-11-11 09:14 | PDOC ---
Exam Note: Marcelo Note: This note is a late entry for 11/10/2020 covers elements not covered in my initial note. Subjective: The patient was seen face to face in the evening of 11/10/2020 with Paloma HOLLINGSWORTH. Discussed with nursing staff, reviewed the chart. The patient slept 7 hours previous night. She has been extremely obsessive, less yelling, however but as I met with her in the evening she was totally fixated on wanting to be discharged on Sunday, and she wanted me to affirm this. When I was unable to do this she was yelling louder and louder. Review of Systems: No CV, , pulmonary, eye, ENT system symptoms on review. She does have typical facial movements for her. Mental Status Exam: The patient is oriented to herself and situation. Speech is coherent, rapid, loud at times. Abstraction is fair. Computation is impaired. Language function is intact. Attention span is short. Mood and affect remains anxious, labile but showing some improvement. Laboratory Data: Reviewed. Impression: Bipolar 1 disorder mixed with psychotic features. Anxiety disorder unspecified. Impulse control disorder unspecified. Plan: Continue psychotropics from initial note. I have carefully reviewed the drug interactions. Risk-benefit ratio favors no change at this time. Assessment: Vital Signs/I&O: Vital Signs Date Time Temp Pulse Resp B/P (MAP) Pulse Ox O2 Delivery O2 Flow Rate FiO2 11/11/20 06:20 97.3 74 20 140/81 (100) 95 Room Air I & O 11/10/20 11/10/20 11/11/20 15:00 23:00 07:00 Intake Total 680 ml 580 ml Balance 680 ml 580 ml Labs: Laboratory Tests Test 11/10/20 11:19 11/10/20 16:09 11/10/20 19:16 11/11/20 06:32 Glucose (Fingerstick) 239 mg/dL (70-99) H 291 mg/dL (70-99) H 270 mg/dL (70-99) H White Blood Count 7.0 x10^3/uL (4.0-11.0) Red Blood Count 4.47 x10^6/uL (3.50-5.40) Hemoglobin 13.3 g/dL (12.0-15.5) Hematocrit 39.8 % (36.0-47.0) Mean Corpuscular Volume 89 fL (79-100) Mean Corpuscular Hemoglobin 30 pg (25-35) Mean Corpuscular Hemoglobin Concent 34 g/dL (31-37) Red Cell Distribution Width 13.3 % (11.5-14.5) Platelet Count 123 x10^3/uL (140-400) L Neutrophils (%) (Auto) 46 % (31-73) Lymphocytes (%) (Auto) 41 % (24-48) Monocytes (%) (Auto) 6 % (0-9) Eosinophils (%) (Auto) 5 % (0-3) H Basophils (%) (Auto) 2 % (0-3) Neutrophils # (Auto) 3.2 x10^3uL (1.8-7.7) Lymphocytes # (Auto) 2.9 x10^3/uL (1.0-4.8) Monocytes # (Auto) 0.4 x10^3/uL (0.0-1.1) Eosinophils # (Auto) 0.4 x10^3/uL (0.0-0.7) Basophils # (Auto) 0.1 x10^3/uL (0.0-0.2) Sodium Level 140 mmol/L (136-145) Potassium Level 3.8 mmol/L (3.5-5.1) Chloride Level 104 mmol/L (98-107) Carbon Dioxide Level 31 mmol/L (21-32) Anion Gap 5 (6-14) L Blood Urea Nitrogen 22 mg/dL (7-20) H Creatinine 1.0 mg/dL (0.6-1.0) Estimated GFR (Cockcroft-Gault) 54.2 BUN/Creatinine Ratio 22 (6-20) H Glucose Level 169 mg/dL (70-99) H Calcium Level 8.5 mg/dL (8.5-10.1) Total Bilirubin 0.3 mg/dL (0.2-1.0) Aspartate Amino Transferase (AST) 16 U/L (15-37) Alanine Aminotransferase (ALT) 21 U/L (14-59) Alkaline Phosphatase 63 U/L (46-116) Total Protein 6.9 g/dL (6.4-8.2) Albumin 3.3 g/dL (3.4-5.0) L Albumin/Globulin Ratio 0.9 (1.0-1.7) L Test 11/11/20 07:26 Glucose (Fingerstick) 156 mg/dL (70-99) H Current Medications: Meds: Laboratory Tests Test 11/10/20 11:19 11/10/20 16:09 11/10/20 19:16 11/11/20 06:32 Glucose (Fingerstick) 239 mg/dL 291 mg/dL 270 mg/dL White Blood Count 7.0 x10^3/uL Red Blood Count 4.47 x10^6/uL Hemoglobin 13.3 g/dL Hematocrit 39.8 % Mean Corpuscular Volume 89 fL Mean Corpuscular Hemoglobin 30 pg Mean Corpuscular Hemoglobin Concent 34 g/dL Red Cell Distribution Width 13.3 % Platelet Count 123 x10^3/uL Neutrophils (%) (Auto) 46 % Lymphocytes (%) (Auto) 41 % Monocytes (%) (Auto) 6 % Eosinophils (%) (Auto) 5 % Basophils (%) (Auto) 2 % Neutrophils # (Auto) 3.2 x10^3uL Lymphocytes # (Auto) 2.9 x10^3/uL Monocytes # (Auto) 0.4 x10^3/uL Eosinophils # (Auto) 0.4 x10^3/uL Basophils # (Auto) 0.1 x10^3/uL Sodium Level 140 mmol/L Potassium Level 3.8 mmol/L Chloride Level 104 mmol/L Carbon Dioxide Level 31 mmol/L Anion Gap 5 Blood Urea Nitrogen 22 mg/dL Creatinine 1.0 mg/dL Estimated GFR (Cockcroft-Gault) 54.2 BUN/Creatinine Ratio 22 Glucose Level 169 mg/dL Calcium Level 8.5 mg/dL Total Bilirubin 0.3 mg/dL Aspartate Amino Transf (AST/SGOT) 16 U/L Alanine Aminotransferase (ALT/SGPT) 21 U/L Alkaline Phosphatase 63 U/L Total Protein 6.9 g/dL Albumin 3.3 g/dL Albumin/Globulin Ratio 0.9 Test 11/11/20 07:26 Glucose (Fingerstick) 156 mg/dL Current Medications Medications (Trade) Dose Ordered Sig/Carmina Route PRN Reason Start Time Stop Time Status Last Admin Dose Admin Acetaminophen (Tylenol) 650 mg PRN Q6HRS PRN PO MILD PAIN / TEMP > 100.3'F 11/03/20 23:15 Cancel Multi-Ingredient Ointment (Analgesic [place]) 1 estrellita PRN QID PRN TP MUSCLE PAIN 11/03/20 23:15 Al Hydroxide/Mg Hydroxide (Mylanta Plus Xs) 15 ml PRN AFTMEALHC PRN PO DYSPEPSIA 11/03/20 23:15 Magnesium Hydroxide (Milk Of Magnesia) 2,400 mg PRN QHS PRN PO CONSTIPATION 11/03/20 23:15 Levothyroxine Sodium (Synthroid) 25 mcg DAILY06 PO 11/04/20 06:00 11/11/20 05:30 Pantoprazole Sodium (Protonix) 40 mg DAILYAC PO 11/04/20 07:30 11/11/20 08:19 Acetaminophen (Tylenol) 650 mg PRN Q4HRS PRN PO PAIN 11/04/20 00:45 Aspirin (Aspirin Chewable) 81 mg DAILYWBKFT PO 11/04/20 08:00 11/11/20 08:19 Hydroxyzine Pamoate (Vistaril) 25 mg PRN Q6HRS PRN PO agitation/anxiety 11/04/20 00:45 11/10/20 17:54 Melatonin (Melatonin) 3 mg HS PO 11/04/20 21:00 11/10/20 20:32 Nystatin (Nystop) 1 estrellita PRN BID PRN TP RASH 11/04/20 00:45 Polyethylene Glycol (miraLAX) 17 gm DAILY PO 11/04/20 09:00 11/11/20 08:19 Quetiapine Fumarate (SEROquel) 25 mg BID PO 11/04/20 09:00 11/11/20 08:20 Quetiapine Fumarate (SEROquel) 100 mg TID PO 11/04/20 09:00 11/11/20 08:20 Trazodone HCl (Desyrel) 100 mg HS PO 11/04/20 21:00 11/10/20 20:32 Non-Formulary Medication (Ergocalciferol (Vitamin D2) (Vitamin D2)) 1,250 mcg WEEKLY PO 11/04/20 09:00 11/04/20 15:01 DC Citalopram Hydrobromide (CeleXA) 40 mg DAILY PO 11/04/20 09:00 11/05/20 18:18 DC 11/05/20 08:22 Fenofibrate (Tricor) 145 mg DAILY PO 11/04/20 09:00 11/11/20 08:19 Non-Formulary Medication (Guanfacine Hcl ) 1 tab BID PO 11/04/20 09:00 11/08/20 18:18 DC Non-Formulary Medication (Insulin Aspart (Novolog)) 9 unit TIDWMEALS SQ 11/04/20 08:00 UNV Non-Formulary Medication (Insulin Glargine,Hum.rec.anlog (Lantus Solostar)) 20 unit QHS SQ 11/04/20 21:00 UNV Non-Formulary Medication (Menthol/Zinc Oxide (Calmoseptine Ointment)) 71 gm BID TP 11/04/20 09:00 11/04/20 14:56 DC Insulin Glargine (Lantus Syringe) 20 unit QHS SQ 11/04/20 21:00 11/10/20 21:42 Insulin Human Lispro (HumaLOG) 9 units TIDWMEALS SQ 11/04/20 08:00 11/11/20 08:20 Vitamin D (Vitamin D3) 50,000 unit WEEKLY PO 11/05/20 09:00 11/05/20 08:24 Diphenhydramine HCl (Benadryl) 50 mg PRN Q6HRS PRN PO RASH 11/05/20 11:30 11/06/20 22:51 Oxcarbazepine (Trileptal) 300 mg BID PO 11/05/20 21:00 11/07/20 16:24 DC 11/07/20 09:08 Fluvoxamine Maleate (Luvox) 50 mg QHS PO 11/05/20 21:00 11/10/20 20:32 Levofloxacin (Levaquin) 250 mg DAILY06 PO 11/06/20 16:00 11/10/20 06:01 DC 11/10/20 05:30 Lactobacillus Rhamnosus (Culturelle) 1 cap BID PO 11/07/20 21:00 11/11/20 08:19 Olanzapine (ZyPREXA ZYDIS) 5 mg PRN Q2HR PRN PO PSYCHOSIS 11/08/20 17:00 11/09/20 19:19 Carbamazepine (TEGretol) 200 mg QHS PO 11/08/20 21:00 11/10/20 20:32 I have reviewed the current psychotropics carefully including drug interactions. Risk benefit ratio favors no change other than as noted in my dictated progress note. Diagnosis: Problems: (1) Obsessive compulsive disorder (2) Impulse control disorder (3) Intellectual disability (4) Bipolar affective, mixed, sev w/ psych (5) Anxiety disorder, unspecified IDA LAINEZ MD Nov 11, 2020 09:14
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
[2020-11-11 14:00] LABS: CARBAM 6.8 mcg/mL (4.0-12.0)
--- NOTE | 2020-11-11 15:30 | NUR ---
Pt sister, Ricky, participated in tx team via phone. ANJU was not able to sit in on this call; however, will follow up with Ricky and continue to update all parties o pt progress and discharge plans.
[2020-11-11 15:38] VITALS: BP 108/62
[2020-11-11] MEDS: hydrOXYzine PAMOATE 25 MG CAPSULE PO PRN (16:34)
--- NOTE | 2020-11-11 17:36 | NUR ---
Patient was asleep until around 10am this morning and stated "I feel a whole lot better than yesterday". Pt has been compliant with medications and assessment with this RN. Pt was yelling in hallway around 1600 and stating that she did not like someone being mean. Pt was not redirectable so was brought to room to calm down. Pt then was directable and calm. Pt did talk to Ricky today once. Took medications whole without difficulty.
[2020-11-11] MEDS: carBAMazepine 200 MG TABLET PO SCH (20:11)
[2020-11-11] MEDS: traZODone 100 MG TABLET. PO SCH (20:11)
[2020-11-11] MEDS: MELATONIN 3 MG TABLET PO SCH (20:12)
[2020-11-11] MEDS: INSULIN GLARGINE SYRINGE. SQ SCH (20:15)
--- NOTE | 2020-11-11 21:05 | PDOC ---
Exam Note: Marcelo Note: Please also refer to the separate dictated note~for this date of service dictated separately.~Patient seen individually. Discussed the patient with Nursing staff reviewed the chart.~Reviewed interim history and current functioning. Reviewed vital signs,~Labs/ Radiology~and current medications noted below. Continue current treatment with the changes noted in the dictated addendum note Assessment: Vital Signs/I&O: Vital Signs Date Time Temp Pulse Resp B/P (MAP) Pulse Ox O2 Delivery O2 Flow Rate FiO2 11/11/20 15:38 97.3 70 20 108/62 (77) 97 11/11/20 06:20 Room Air I & O 11/10/20 11/10/20 11/11/20 15:00 23:00 07:00 Intake Total 680 ml 580 ml Balance 680 ml 580 ml Labs: Laboratory Tests Test 11/11/20 06:00 11/11/20 06:32 11/11/20 07:26 11/11/20 11:36 Coronavirus (PCR) Not detected (Not Detected) White Blood Count 7.0 x10^3/uL (4.0-11.0) Red Blood Count 4.47 x10^6/uL (3.50-5.40) Hemoglobin 13.3 g/dL (12.0-15.5) Hematocrit 39.8 % (36.0-47.0) Mean Corpuscular Volume 89 fL (79-100) Mean Corpuscular Hemoglobin 30 pg (25-35) Mean Corpuscular Hemoglobin Concent 34 g/dL (31-37) Red Cell Distribution Width 13.3 % (11.5-14.5) Platelet Count 123 x10^3/uL (140-400) L Neutrophils (%) (Auto) 46 % (31-73) Lymphocytes (%) (Auto) 41 % (24-48) Monocytes (%) (Auto) 6 % (0-9) Eosinophils (%) (Auto) 5 % (0-3) H Basophils (%) (Auto) 2 % (0-3) Neutrophils # (Auto) 3.2 x10^3uL (1.8-7.7) Lymphocytes # (Auto) 2.9 x10^3/uL (1.0-4.8) Monocytes # (Auto) 0.4 x10^3/uL (0.0-1.1) Eosinophils # (Auto) 0.4 x10^3/uL (0.0-0.7) Basophils # (Auto) 0.1 x10^3/uL (0.0-0.2) Sodium Level 140 mmol/L (136-145) Potassium Level 3.8 mmol/L (3.5-5.1) Chloride Level 104 mmol/L (98-107) Carbon Dioxide Level 31 mmol/L (21-32) Anion Gap 5 (6-14) L Blood Urea Nitrogen 22 mg/dL (7-20) H Creatinine 1.0 mg/dL (0.6-1.0) Estimated GFR (Cockcroft-Gault) 54.2 BUN/Creatinine Ratio 22 (6-20) H Glucose Level 169 mg/dL (70-99) H Calcium Level 8.5 mg/dL (8.5-10.1) Total Bilirubin 0.3 mg/dL (0.2-1.0) Aspartate Amino Transferase (AST) 16 U/L (15-37) Alanine Aminotransferase (ALT) 21 U/L (14-59) Alkaline Phosphatase 63 U/L (46-116) Total Protein 6.9 g/dL (6.4-8.2) Albumin 3.3 g/dL (3.4-5.0) L Albumin/Globulin Ratio 0.9 (1.0-1.7) L Carbamazepine (Tegretol) Level 6.8 mcg/mL (4.0-12.0) Carbamazepine Last Dose Date 11/10/20 Carbamazepine Last Dose Time 2100 Glucose (Fingerstick) 156 mg/dL (70-99) H 158 mg/dL (70-99) H Test 11/11/20 17:08 11/11/20 19:14 Glucose (Fingerstick) 178 mg/dL (70-99) H 206 mg/dL (70-99) H Current Medications: Meds: Laboratory Tests Test 11/11/20 06:00 11/11/20 06:32 11/11/20 07:26 11/11/20 11:36 Coronavirus (PCR) Not detected White Blood Count 7.0 x10^3/uL Red Blood Count 4.47 x10^6/uL Hemoglobin 13.3 g/dL Hematocrit 39.8 % Mean Corpuscular Volume 89 fL Mean Corpuscular Hemoglobin 30 pg Mean Corpuscular Hemoglobin Concent 34 g/dL Red Cell Distribution Width 13.3 % Platelet Count 123 x10^3/uL Neutrophils (%) (Auto) 46 % Lymphocytes (%) (Auto) 41 % Monocytes (%) (Auto) 6 % Eosinophils (%) (Auto) 5 % Basophils (%) (Auto) 2 % Neutrophils # (Auto) 3.2 x10^3uL Lymphocytes # (Auto) 2.9 x10^3/uL Monocytes # (Auto) 0.4 x10^3/uL Eosinophils # (Auto) 0.4 x10^3/uL Basophils # (Auto) 0.1 x10^3/uL Sodium Level 140 mmol/L Potassium Level 3.8 mmol/L Chloride Level 104 mmol/L Carbon Dioxide Level 31 mmol/L Anion Gap 5 Blood Urea Nitrogen 22 mg/dL Creatinine 1.0 mg/dL Estimated GFR (Cockcroft-Gault) 54.2 BUN/Creatinine Ratio 22 Glucose Level 169 mg/dL Calcium Level 8.5 mg/dL Total Bilirubin 0.3 mg/dL Aspartate Amino Transf (AST/SGOT) 16 U/L Alanine Aminotransferase (ALT/SGPT) 21 U/L Alkaline Phosphatase 63 U/L Total Protein 6.9 g/dL Albumin 3.3 g/dL Albumin/Globulin Ratio 0.9 Carbamazepine (Tegretol) Level 6.8 mcg/mL Carbamazepine Last Dose Date 11/10/20 Carbamazepine Last Dose Time 2100 Glucose (Fingerstick) 156 mg/dL 158 mg/dL Test 11/11/20 17:08 11/11/20 19:14 Glucose (Fingerstick) 178 mg/dL 206 mg/dL Current Medications Medications (Trade) Dose Ordered Sig/Carmina Route PRN Reason Start Time Stop Time Status Last Admin Dose Admin Acetaminophen (Tylenol) 650 mg PRN Q6HRS PRN PO MILD PAIN / TEMP > 100.3'F 11/03/20 23:15 Cancel Multi-Ingredient Ointment (Analgesic [place]) 1 estrellita PRN QID PRN TP MUSCLE PAIN 11/03/20 23:15 Al Hydroxide/Mg Hydroxide (Mylanta Plus Xs) 15 ml PRN AFTMEALHC PRN PO DYSPEPSIA 11/03/20 23:15 Magnesium Hydroxide (Milk Of Magnesia) 2,400 mg PRN QHS PRN PO CONSTIPATION 1/20/21 23:15 Levothyroxine Sodium (Synthroid) 25 mcg DAILY06 PO 11/04/20 06:00 11/11/20 05:30 Pantoprazole Sodium (Protonix) 40 mg DAILYAC PO 11/04/20 07:30 11/11/20 08:19 Acetaminophen (Tylenol) 650 mg PRN Q4HRS PRN PO PAIN 11/04/20 00:45 Aspirin (Aspirin Chewable) 81 mg DAILYWBKFT PO 11/04/20 08:00 11/11/20 08:19 Hydroxyzine Pamoate (Vistaril) 25 mg PRN Q6HRS PRN PO agitation/anxiety 11/04/20 00:45 11/11/20 16:34 Melatonin (Melatonin) 3 mg HS PO 11/04/20 21:00 11/11/20 20:12 Nystatin (Nystop) 1 estrellita PRN BID PRN TP RASH 11/04/20 00:45 Polyethylene Glycol (miraLAX) 17 gm DAILY PO 11/04/20 09:00 11/11/20 08:19 Quetiapine Fumarate (SEROquel) 25 mg BID PO 11/04/20 09:00 11/11/20 20:12 Quetiapine Fumarate (SEROquel) 100 mg TID PO 11/04/20 09:00 11/11/20 20:12 Trazodone HCl (Desyrel) 100 mg HS PO 11/04/20 21:00 11/11/20 20:11 Non-Formulary Medication (Ergocalciferol (Vitamin D2) (Vitamin D2)) 1,250 mcg WEEKLY PO 11/04/20 09:00 11/04/20 15:01 DC Citalopram Hydrobromide (CeleXA) 40 mg DAILY PO 11/04/20 09:00 11/05/20 18:18 DC 11/05/20 08:22 Fenofibrate (Tricor) 145 mg DAILY PO 11/04/20 09:00 11/11/20 08:19 Non-Formulary Medication (Guanfacine Hcl ) 1 tab BID PO 11/04/20 09:00 11/08/20 18:18 DC Non-Formulary Medication (Insulin Aspart (Novolog)) 9 unit TIDWMEALS SQ 11/04/20 08:00 UNV Non-Formulary Medication (Insulin Glargine,Hum.rec.anlog (Lantus Solostar)) 20 unit QHS SQ 11/04/20 21:00 UNV Non-Formulary Medication (Menthol/Zinc Oxide (Calmoseptine Ointment)) 71 gm BID TP 11/04/20 09:00 11/04/20 14:56 DC Insulin Glargine (Lantus Syringe) 20 unit QHS SQ 11/04/20 21:00 11/11/20 20:15 Insulin Human Lispro (HumaLOG) 9 units TIDWMEALS SQ 11/04/20 08:00 11/11/20 17:15 Vitamin D (Vitamin D3) 50,000 unit WEEKLY PO 11/05/20 09:00 11/05/20 08:24 Diphenhydramine HCl (Benadryl) 50 mg PRN Q6HRS PRN PO RASH 11/05/20 11:30 11/06/20 22:51 Oxcarbazepine (Trileptal) 300 mg BID PO 11/05/20 21:00 11/07/20 16:24 DC 11/07/20 09:08 Fluvoxamine Maleate (Luvox) 50 mg QHS PO 11/05/20 21:00 11/11/20 20:11 Levofloxacin (Levaquin) 250 mg DAILY06 PO 11/06/20 16:00 11/10/20 06:01 DC 11/10/20 05:30 Lactobacillus Rhamnosus (Culturelle) 1 cap BID PO 11/07/20 21:00 11/11/20 20:11 Olanzapine (ZyPREXA ZYDIS) 5 mg PRN Q2HR PRN PO PSYCHOSIS 11/08/20 17:00 11/09/20 19:19 Carbamazepine (TEGretol) 200 mg QHS PO 11/08/20 21:00 11/11/20 20:11 Carbamazepine (TEGretol) 100 mg DAILY PO 11/12/20 09:00 I have reviewed the current psychotropics carefully including drug interactions. Risk benefit ratio favors no change other than as noted in my dictated progress note. Diagnosis: Problems: (1) Obsessive compulsive disorder (2) Impulse control disorder (3) Intellectual disability (4) Bipolar affective, mixed, sev w/ psych (5) Anxiety disorder, unspecified IDA LAINEZ MD Nov 11, 2020 21:05
[2020-11-12] MEDS: LEVOTHYROXINE 25 MCG TABLET. PO SCH (05:32)
[2020-11-12 06:05] VITALS: BP 118/65
--- NOTE | 2020-11-12 07:33 | PDOC ---
Exam Note: Marcelo Note: This note is a late entry for 11/11/2020 covers elements not covered in my initial note. Subjective: The patient was seen face to face in the morning of 11/11/2020 for a treatment team meeting with Geeta Monroe and Thais (social media designer), Migdalia Smith, activity therapy and Ileana HOLLINGSWORTH. The patients sister Ricky attended as well. We had a lengthy discussion about the patients diagnoses, Ricky gave a history that the patient was hospitalized for UTI and sepsis and for pneumonia, was extremely critical and behaviors were worse then. Ricky wants to make sure that the patient is not treated ever again on Depakote or Trileptal since she did not tolerate these well and she wants Ativan, Xanax avoided and had concerns about Zyprexa due to sedation but we discussed some of that could be a dose effect rather than specific medication effect. The patient slept 6 hours previous night. She is overall doing better. At shift change she was cursing a t staff. She slept till 10 a.m. today. Ricky is very pleased with how she responds to Seroquel and we might have to preferentially adjust this. Tegretol level is 6.8 but since Tegretol can auto-metabolize itself, we will increase it from 200 mg h.s. to 100 mg a.m. and 200 mg h.s. Check CBC, CMP, carbamazepine level in 3 days. Review of Systems: No CV, , pulmonary, eye, ENT system symptoms on review. Mental Status Exam: The patient is oriented to herself and situation. Speech is coherent, rapid, at times. Abstraction is fair. Computation is impaired. She is extremely obsessive, repetitive, somewhat loud and demanding at times. I processed behavior modification with her. No suicidal or homicidal ideation. She is quite distractible. Laboratory Data: Reviewed. Impression: Bipolar 1 disorder mixed with psychotic features. Anxiety disorder unspecified. Impulse control disorder unspecified. Plan: Increase Tegretol as above. Continue Seroquel at current dosage. Zyprexa is being used minimally p.r.n., Luvox 50 mg daily, we may need to increase this. Assessment: Vital Signs/I&O: Vital Signs Date Time Temp Pulse Resp B/P (MAP) Pulse Ox O2 Delivery O2 Flow Rate FiO2 11/12/20 06:05 97.4 74 20 118/65 (82) 93 Room Air I & O 11/11/20 11/11/20 11/12/20 15:00 23:00 07:00 Intake Total 240 ml 360 ml Balance 240 ml 360 ml Labs: Laboratory Tests Test 11/11/20 11:36 11/11/20 17:08 11/11/20 19:14 Glucose (Fingerstick) 158 mg/dL (70-99) H 178 mg/dL (70-99) H 206 mg/dL (70-99) H Current Medications: Meds: Laboratory Tests Test 11/11/20 11:36 11/11/20 17:08 11/11/20 19:14 Glucose (Fingerstick) 158 mg/dL 178 mg/dL 206 mg/dL Current Medications Medications (Trade) Dose Ordered Sig/Carmina Route PRN Reason Start Time Stop Time Status Last Admin Dose Admin Acetaminophen (Tylenol) 650 mg PRN Q6HRS PRN PO MILD PAIN / TEMP > 100.3'F 11/03/20 23:15 Cancel Multi-Ingredient Ointment (Analgesic [place]) 1 estrellita PRN QID PRN TP MUSCLE PAIN 11/03/20 23:15 Al Hydroxide/Mg Hydroxide (Mylanta Plus Xs) 15 ml PRN AFTMEALHC PRN PO DYSPEPSIA 11/03/20 23:15 Magnesium Hydroxide (Milk Of Magnesia) 2,400 mg PRN QHS PRN PO CONSTIPATION 11/03/20 23:15 Levothyroxine Sodium (Synthroid) 25 mcg DAILY06 PO 11/04/20 06:00 11/12/20 05:32 Pantoprazole Sodium (Protonix) 40 mg DAILYAC PO 11/04/20 07:30 11/11/20 08:19 Acetaminophen (Tylenol) 650 mg PRN Q4HRS PRN PO PAIN 11/04/20 00:45 Aspirin (Aspirin Chewable) 81 mg DAILYWBKFT PO 11/04/20 08:00 11/11/20 08:19 Hydroxyzine Pamoate (Vistaril) 25 mg PRN Q6HRS PRN PO agitation/anxiety 11/04/20 00:45 11/11/20 16:34 Melatonin (Melatonin) 3 mg HS PO 11/04/20 21:00 11/11/20 20:12 Nystatin (Nystop) 1 estrellita PRN BID PRN TP RASH 11/04/20 00:45 Polyethylene Glycol (miraLAX) 17 gm DAILY PO 11/04/20 09:00 11/11/20 08:19 Quetiapine Fumarate (SEROquel) 25 mg BID PO 11/04/20 09:00 11/11/20 20:12 Quetiapine Fumarate (SEROquel) 100 mg TID PO 11/04/20 09:00 11/11/20 20:12 Trazodone HCl (Desyrel) 100 mg HS PO 11/04/20 21:00 11/11/20 20:11 Non-Formulary Medication (Ergocalciferol (Vitamin D2) (Vitamin D2)) 1,250 mcg WEEKLY PO 11/04/20 09:00 11/04/20 15:01 DC Citalopram Hydrobromide (CeleXA) 40 mg DAILY PO 11/04/20 09:00 11/05/20 18:18 DC 11/05/20 08:22 Fenofibrate (Tricor) 145 mg DAILY PO 11/04/20 09:00 11/11/20 08:19 Non-Formulary Medication (Guanfacine Hcl ) 1 tab BID PO 11/04/20 09:00 11/08/20 18:18 DC Non-Formulary Medication (Insulin Aspart (Novolog)) 9 unit TIDWMEALS SQ 11/04/20 08:00 UNV Non-Formulary Medication (Insulin Glargine,Hum.rec.anlog (Lantus Solostar)) 20 unit QHS SQ 11/04/20 21:00 UNV Non-Formulary Medication (Menthol/Zinc Oxide (Calmoseptine Ointment)) 71 gm BID TP 11/04/20 09:00 11/04/20 14:56 DC Insulin Glargine (Lantus Syringe) 20 unit QHS SQ 11/04/20 21:00 11/11/20 20:15 Insulin Human Lispro (HumaLOG) 9 units TIDWMEALS SQ 11/04/20 08:00 11/11/20 17:15 Vitamin D (Vitamin D3) 50,000 unit WEEKLY PO 11/05/20 09:00 11/05/20 08:24 Diphenhydramine HCl (Benadryl) 50 mg PRN Q6HRS PRN PO RASH 11/05/20 11:30 11/06/20 22:51 Oxcarbazepine (Trileptal) 300 mg BID PO 11/05/20 21:00 11/07/20 16:24 DC 11/07/20 09:08 Fluvoxamine Maleate (Luvox) 50 mg QHS PO 11/05/20 21:00 11/11/20 20:11 Levofloxacin (Levaquin) 250 mg DAILY06 PO 11/06/20 16:00 11/10/20 06:01 DC 11/10/20 05:30 Lactobacillus Rhamnosus (Culturelle) 1 cap BID PO 11/07/20 21:00 11/11/20 20:11 Olanzapine (ZyPREXA ZYDIS) 5 mg PRN Q2HR PRN PO PSYCHOSIS 11/08/20 17:00 11/09/20 19:19 Carbamazepine (TEGretol) 200 mg QHS PO 11/08/20 21:00 11/11/20 20:11 Carbamazepine (TEGretol) 100 mg DAILY PO 11/12/20 09:00 I have reviewed the current psychotropics carefully including drug interactions. Risk benefit ratio favors no change other than as noted in my dictated progress note. Diagnosis: Problems: (1) Obsessive compulsive disorder (2) Impulse control disorder (3) Intellectual disability (4) Anxiety disorder, unspecified (5) Bipolar affective, mixed, sev w/ psych IDA LAINEZ MD Nov 12, 2020 07:33
[2020-11-12] MEDS: LACTOBACILLUS RHAMNOSUS GG 1 CAPSULE. PO SCH ×2 (08:57→19:30)
[2020-11-12] MEDS: ASPIRIN CHEWABLE 81 MG TABLET. PO SCH (08:57)
[2020-11-12] MEDS: FENOFIBRATE NANOCRYSTALLIZED 145 MG TABLET PO SCH (08:57)
[2020-11-12] MEDS: QUEtiapine 25 MG TABLET. PO SCH ×2 (08:57→19:29)
[2020-11-12] MEDS: PANTOPRAZOLE 40 MG TABLET. PO SCH (08:57)
[2020-11-12] MEDS: POLYETHYLENE GLYCOL 3350 17 GM PACKET. PO SCH (08:57)
[2020-11-12] MEDS: QUEtiapine 100 MG TABLET. PO SCH ×3 (08:57→19:29)
[2020-11-12] MEDS: carBAMazepine 100 MG TAB.CHEW PO SCH (08:59)
[2020-11-12] MEDS: CHOLECALCIFEROL (VITAMIN D3) 50,000 UNIT CAPSULE PO SCH (08:59)
[2020-11-12] MEDS: INSULIN LISPRO 300 UNITS/3 ML VIAL. SQ SCH ×3 (09:01→17:00)
--- NOTE | 2020-11-12 15:16 | NUR ---
Pt up adl for meals. Has been out for groups in am. Has yelled out intermittently. Has been resting quietly in bed this afternoon.
[2020-11-12 16:14] VITALS: BP 121/73
[2020-11-12] MEDS: MELATONIN 3 MG TABLET PO SCH (19:29)
[2020-11-12] MEDS: traZODone 100 MG TABLET. PO SCH (19:30)
[2020-11-12] MEDS: carBAMazepine 200 MG TABLET PO SCH (19:30)
--- NOTE | 2020-11-12 21:07 | PDOC ---
Exam Note: Marcelo Note: Please also refer to the separate dictated note~for this date of service dictated separately.~Patient seen individually. Discussed the patient with Nursing staff reviewed the chart.~Reviewed interim history and current functioning. Reviewed vital signs,~Labs/ Radiology~and current medications noted below. Continue current treatment with the changes noted in the dictated addendum note Assessment: Vital Signs/I&O: Vital Signs Date Time Temp Pulse Resp B/P (MAP) Pulse Ox O2 Delivery O2 Flow Rate FiO2 11/12/20 16:14 97.7 86 20 121/73 (89) 93 Room Air I & O 11/11/20 11/11/20 11/12/20 15:00 23:00 07:00 Intake Total 240 ml 360 ml Balance 240 ml 360 ml Labs: Laboratory Tests Test 11/12/20 07:31 11/12/20 11:49 11/12/20 16:43 11/12/20 18:59 Glucose (Fingerstick) 142 mg/dL (70-99) H 154 mg/dL (70-99) H 175 mg/dL (70-99) H 211 mg/dL (70-99) H Current Medications: Meds: Laboratory Tests Test 11/12/20 07:31 11/12/20 11:49 11/12/20 16:43 11/12/20 18:59 Glucose (Fingerstick) 142 mg/dL 154 mg/dL 175 mg/dL 211 mg/dL Current Medications Medications (Trade) Dose Ordered Sig/Carmina Route PRN Reason Start Time Stop Time Status Last Admin Dose Admin Acetaminophen (Tylenol) 650 mg PRN Q6HRS PRN PO MILD PAIN / TEMP > 100.3'F 11/03/20 23:15 Cancel Multi-Ingredient Ointment (Analgesic [place]) 1 estrellita PRN QID PRN TP MUSCLE PAIN 11/03/20 23:15 Al Hydroxide/Mg Hydroxide (Mylanta Plus Xs) 15 ml PRN AFTMEALHC PRN PO DYSPEPSIA 11/03/20 23:15 Magnesium Hydroxide (Milk Of Magnesia) 2,400 mg PRN QHS PRN PO CONSTIPATION 11/03/20 23:15 Levothyroxine Sodium (Synthroid) 25 mcg DAILY06 PO 11/04/20 06:00 11/12/20 05:32 Pantoprazole Sodium (Protonix) 40 mg DAILYAC PO 11/04/20 07:30 11/12/20 08:57 Acetaminophen (Tylenol) 650 mg PRN Q4HRS PRN PO PAIN 11/04/20 00:45 Aspirin (Aspirin Chewable) 81 mg DAILYWBKFT PO 11/04/20 08:00 11/12/20 08:57 Hydroxyzine Pamoate (Vistaril) 25 mg PRN Q6HRS PRN PO agitation/anxiety 11/04/20 00:45 11/11/20 16:34 Melatonin (Melatonin) 3 mg HS PO 11/04/20 21:00 11/12/20 19:29 Nystatin (Nystop) 1 estrellita PRN BID PRN TP RASH 11/04/20 00:45 Polyethylene Glycol (miraLAX) 17 gm DAILY PO 11/04/20 09:00 11/12/20 08:57 Quetiapine Fumarate (SEROquel) 25 mg BID PO 11/04/20 09:00 11/12/20 19:29 Quetiapine Fumarate (SEROquel) 100 mg TID PO 11/04/20 09:00 11/12/20 19:29 Trazodone HCl (Desyrel) 100 mg HS PO 11/04/20 21:00 11/12/20 19:30 Non-Formulary Medication (Ergocalciferol (Vitamin D2) (Vitamin D2)) 1,250 mcg WEEKLY PO 11/04/20 09:00 11/04/20 15:01 DC Citalopram Hydrobromide (CeleXA) 40 mg DAILY PO 11/04/20 09:00 11/05/20 18:18 DC 11/05/20 08:22 Fenofibrate (Tricor) 145 mg DAILY PO 11/04/20 09:00 11/12/20 08:57 Non-Formulary Medication (Guanfacine Hcl ) 1 tab BID PO 11/04/20 09:00 11/08/20 18:18 DC Non-Formulary Medication (Insulin Aspart (Novolog)) 9 unit TIDWMEALS SQ 11/04/20 08:00 UNV Non-Formulary Medication (Insulin Glargine,Hum.rec.anlog (Lantus Solostar)) 20 unit QHS SQ 11/04/20 21:00 UNV Non-Formulary Medication (Menthol/Zinc Oxide (Calmoseptine Ointment)) 71 gm BID TP 11/04/20 09:00 11/04/20 14:56 DC Insulin Glargine (Lantus Syringe) 20 unit QHS SQ 11/04/20 21:00 11/11/20 20:15 Insulin Human Lispro (HumaLOG) 9 units TIDWMEALS SQ 11/04/20 08:00 11/12/20 17:00 Vitamin D (Vitamin D3) 50,000 unit WEEKLY PO 11/05/20 09:00 11/12/20 08:59 Diphenhydramine HCl (Benadryl) 50 mg PRN Q6HRS PRN PO RASH 11/05/20 11:30 11/06/20 22:51 Oxcarbazepine (Trileptal) 300 mg BID PO 11/05/20 21:00 11/07/20 16:24 DC 11/07/20 09:08 Fluvoxamine Maleate (Luvox) 50 mg QHS PO 11/05/20 21:00 11/12/20 19:30 Levofloxacin (Levaquin) 250 mg DAILY06 PO 11/06/20 16:00 11/10/20 06:01 DC 11/10/20 05:30 Lactobacillus Rhamnosus (Culturelle) 1 cap BID PO 11/07/20 21:00 11/12/20 19:30 Olanzapine (ZyPREXA ZYDIS) 5 mg PRN Q2HR PRN PO PSYCHOSIS 11/08/20 17:00 11/09/20 19:19 Carbamazepine (TEGretol) 200 mg QHS PO 11/08/20 21:00 11/12/20 19:30 Carbamazepine (TEGretol) 100 mg DAILY PO 11/12/20 09:00 11/12/20 08:59 Current Medications Medications (Trade) Dose Ordered Sig/Carmina Route PRN Reason Start Time Stop Time Status Last Admin Dose Admin Carbamazepine (TEGretol) 100 mg DAILY PO 11/12/20 09:00 11/12/20 08:59 I have reviewed the current psychotropics carefully including drug interactions. Risk benefit ratio favors no change other than as noted in my dictated progress note. Diagnosis: Problems: (1) Obsessive compulsive disorder (2) Impulse control disorder (3) Intellectual disability (4) Bipolar affective, mixed, sev w/ psych (5) Anxiety disorder, unspecified IDA LAINEZ MD Nov 12, 2020 21:07
[2020-11-12] MEDS: INSULIN GLARGINE SYRINGE. SQ SCH (21:26)
--- NOTE | 2020-11-12 22:28 | NUR ---
Pt has been quiet at times tonight then other times she has screamed at staff for prolonged periods of time. She curses and shouts insulting phrases at us then says "I'm sorry" and when she doesn't get what she wants she resumes her tirade. Attempts at redirection only last moments. Her constant shouting is disruptive to peers. Eventually she was given PRN zyprexa and after 30 minutes she settled and appears to sleep. She was cooperative taking meds whole and has spoken with Ricky twice on the phone tonight.
[2020-11-13] MEDS: LEVOTHYROXINE 25 MCG TABLET. PO SCH (05:33)
[2020-11-13 06:15] VITALS: BP 116/75
[2020-11-13] MEDS: QUEtiapine 100 MG TABLET. PO SCH ×3 (07:47→19:45)
[2020-11-13] MEDS: FENOFIBRATE NANOCRYSTALLIZED 145 MG TABLET PO SCH (07:47)
[2020-11-13] MEDS: QUEtiapine 25 MG TABLET. PO SCH ×2 (07:47→19:46)
[2020-11-13] MEDS: carBAMazepine 100 MG TAB.CHEW PO SCH (07:47)
[2020-11-13] MEDS: LACTOBACILLUS RHAMNOSUS GG 1 CAPSULE. PO SCH ×2 (07:47→19:45)
[2020-11-13] MEDS: PANTOPRAZOLE 40 MG TABLET. PO SCH (07:47)
[2020-11-13] MEDS: hydrOXYzine PAMOATE 25 MG CAPSULE PO PRN ×2 (07:47→19:47)
[2020-11-13] MEDS: ASPIRIN CHEWABLE 81 MG TABLET. PO SCH (07:47)
[2020-11-13] MEDS: POLYETHYLENE GLYCOL 3350 17 GM PACKET. PO SCH (07:47)
[2020-11-13] MEDS: INSULIN LISPRO 300 UNITS/3 ML VIAL. SQ SCH ×3 (07:58→17:03)
--- NOTE | 2020-11-13 10:35 | NUR ---
[facility]. PATIENT IS SITTING IN QUIET ROOM ON THE FLOOR YELLING AT SHIFT CHANGE.
--- NOTE | 2020-11-13 10:36 | NUR ---
PATIENT HAS BEEN YELLING MOST OF MORNING. PT IS NOT EASILY REFRACTABLE. PT IS CURSING AT STAFF, AND YELLING HELLO OVER AND OVER AGAIN. PT IS WALKING BACK IN FORTH IN HALLWAYS AT THIS TIME. PT IS COMPLIANT WITH MEDICATIONS WHOLE WITH WATER DURING ASSESSMENT AND MEDICATION ADMINISTRATION. PRN ZYPREXA AND VISTARIL GIVEN WITH AM MEDICATIONS. NO EFFECT SEEN. PT IS STILL YELLING "HELP" AND "HELLO" IN HALLWAY. WILL CONTINUE TO MONITOR.
[2020-11-13 15:00] VITALS: BP 114/76
[2020-11-13] MEDS: carBAMazepine 200 MG TABLET PO SCH (19:45)
[2020-11-13] MEDS: traZODone 100 MG TABLET. PO SCH (19:45)
[2020-11-13] MEDS: MELATONIN 3 MG TABLET PO SCH (19:46)
[2020-11-13] MEDS: INSULIN GLARGINE SYRINGE. SQ SCH (19:49)
--- NOTE | 2020-11-13 21:03 | PDOC ---
Exam Note: Marcelo Note: Please also refer to the separate dictated note~for this date of service dictated separately.~Patient seen individually. Discussed the patient with Nursing staff reviewed the chart.~Reviewed interim history and current functioning. Reviewed vital signs,~Labs/ Radiology~and current medications noted below. Continue current treatment with the changes noted in the dictated addendum note Assessment: Vital Signs/I&O: Vital Signs Date Time Temp Pulse Resp B/P (MAP) Pulse Ox O2 Delivery O2 Flow Rate FiO2 11/13/20 15:00 98.2 80 20 114/76 (89) 98 Room Air I & O 11/12/20 11/12/20 11/13/20 15:00 23:00 07:00 Intake Total 720 ml 840 ml Balance 720 ml 840 ml Labs: Laboratory Tests Test 11/13/20 07:35 11/13/20 11:37 11/13/20 16:51 11/13/20 19:12 Glucose (Fingerstick) 164 mg/dL (70-99) H 235 mg/dL (70-99) H 202 mg/dL (70-99) H 263 mg/dL (70-99) H Current Medications: Meds: Laboratory Tests Test 11/13/20 07:35 11/13/20 11:37 11/13/20 16:51 11/13/20 19:12 Glucose (Fingerstick) 164 mg/dL 235 mg/dL 202 mg/dL 263 mg/dL Current Medications Medications (Trade) Dose Ordered Sig/Carmina Route PRN Reason Start Time Stop Time Status Last Admin Dose Admin Acetaminophen (Tylenol) 650 mg PRN Q6HRS PRN PO MILD PAIN / TEMP > 100.3'F 11/03/20 23:15 Cancel Multi-Ingredient Ointment (Analgesic [place]) 1 estrellita PRN QID PRN TP MUSCLE PAIN 11/03/20 23:15 Al Hydroxide/Mg Hydroxide (Mylanta Plus Xs) 15 ml PRN AFTMEALHC PRN PO DYSPEPSIA 11/03/20 23:15 Magnesium Hydroxide (Milk Of Magnesia) 2,400 mg PRN QHS PRN PO CONSTIPATION 11/03/20 23:15 Levothyroxine Sodium (Synthroid) 25 mcg DAILY06 PO 11/04/20 06:00 11/13/20 05:33 Pantoprazole Sodium (Protonix) 40 mg DAILYAC PO 11/04/20 07:30 11/13/20 07:47 Acetaminophen (Tylenol) 650 mg PRN Q4HRS PRN PO PAIN 11/04/20 00:45 Aspirin (Aspirin Chewable) 81 mg DAILYWBKFT PO 11/04/20 08:00 11/13/20 07:47 Hydroxyzine Pamoate (Vistaril) 25 mg PRN Q6HRS PRN PO agitation/anxiety 11/04/20 00:45 11/13/20 19:47 Melatonin (Melatonin) 3 mg HS PO 11/04/20 21:00 11/13/20 19:46 Nystatin (Nystop) 1 estrellita PRN BID PRN TP RASH 11/04/20 00:45 Polyethylene Glycol (miraLAX) 17 gm DAILY PO 11/04/20 09:00 11/13/20 07:47 Quetiapine Fumarate (SEROquel) 25 mg BID PO 11/04/20 09:00 11/13/20 19:46 Quetiapine Fumarate (SEROquel) 100 mg TID PO 11/04/20 09:00 11/13/20 19:45 Trazodone HCl (Desyrel) 100 mg HS PO 11/04/20 21:00 11/13/20 19:45 Non-Formulary Medication (Ergocalciferol (Vitamin D2) (Vitamin D2)) 1,250 mcg WEEKLY PO 11/04/20 09:00 11/04/20 15:01 DC Citalopram Hydrobromide (CeleXA) 40 mg DAILY PO 11/04/20 09:00 11/05/20 18:18 DC 11/05/20 08:22 Fenofibrate (Tricor) 145 mg DAILY PO 11/04/20 09:00 11/13/20 07:47 Non-Formulary Medication (Guanfacine Hcl ) 1 tab BID PO 11/04/20 09:00 11/08/20 18:18 DC Non-Formulary Medication (Insulin Aspart (Novolog)) 9 unit TIDWMEALS SQ 11/04/20 08:00 UNV Non-Formulary Medication (Insulin Glargine,Hum.rec.anlog (Lantus Solostar)) 20 unit QHS SQ 11/04/20 21:00 UNV Non-Formulary Medication (Menthol/Zinc Oxide (Calmoseptine Ointment)) 71 gm BID TP 11/04/20 09:00 11/04/20 14:56 DC Insulin Glargine (Lantus Syringe) 20 unit QHS SQ 11/04/20 21:00 11/13/20 19:49 Insulin Human Lispro (HumaLOG) 9 units TIDWMEALS SQ 11/04/20 08:00 11/13/20 17:03 Vitamin D (Vitamin D3) 50,000 unit WEEKLY PO 11/05/20 09:00 11/12/20 08:59 Diphenhydramine HCl (Benadryl) 50 mg PRN Q6HRS PRN PO RASH 11/05/20 11:30 11/06/20 22:51 Oxcarbazepine (Trileptal) 300 mg BID PO 11/05/20 21:00 11/07/20 16:24 DC 11/07/20 09:08 Fluvoxamine Maleate (Luvox) 50 mg QHS PO 11/05/20 21:00 11/13/20 17:24 DC 11/12/20 19:30 Levofloxacin (Levaquin) 250 mg DAILY06 PO 11/06/20 16:00 11/10/20 06:01 DC 11/10/20 05:30 Lactobacillus Rhamnosus (Culturelle) 1 cap BID PO 11/07/20 21:00 11/13/20 19:45 Olanzapine (ZyPREXA ZYDIS) 5 mg PRN Q2HR PRN PO PSYCHOSIS 11/08/20 17:00 11/13/20 11:59 Carbamazepine (TEGretol) 200 mg QHS PO 11/08/20 21:00 11/13/20 19:45 Carbamazepine (TEGretol) 100 mg DAILY PO 11/12/20 09:00 11/13/20 07:47 Fluvoxamine Maleate (Luvox) 75 mg QHS PO 11/13/20 21:00 11/13/20 19:47 Current Medications Medications (Trade) Dose Ordered Sig/Carmina Route PRN Reason Start Time Stop Time Status Last Admin Dose Admin Fluvoxamine Maleate (Luvox) 75 mg QHS PO 11/13/20 21:00 11/13/20 19:47 I have reviewed the current psychotropics carefully including drug interactions. Risk benefit ratio favors no change other than as noted in my dictated progress note. Diagnosis: Problems: (1) Obsessive compulsive disorder (2) Impulse control disorder (3) Intellectual disability (4) Bipolar affective, mixed, sev w/ psych (5) Anxiety disorder, unspecified IDA LAINEZ MD Nov 13, 2020 21:03
--- NOTE | 2020-11-13 23:00 | NUR ---
This nurse spoke with Ricky at length this evening. Ricky stated that Dr. Marvin can order whatever medication he feels is needed to help with pt behaviors.
--- NOTE | 2020-11-13 23:22 | NUR ---
Pt located in the [facility] at shift change. Pt continuously yelling, cursing and disrupting the unit. Redirection unsuccessful with pt. Pt initially refused shower but was compliant with coaxing from staff. Pt compliant with whole medications. PRN Vistaril administered with HS medications. Pt continued to yell once placed in bed. PRN Zyprexa administered at that time. Pt currently sleeping in bed.
[2020-11-14] MEDS: LEVOTHYROXINE 25 MCG TABLET. PO SCH (05:25)
[2020-11-14 06:34] VITALS: BP 128/63
[2020-11-14] MEDS: PANTOPRAZOLE 40 MG TABLET. PO SCH (09:02)
[2020-11-14] MEDS: LACTOBACILLUS RHAMNOSUS GG 1 CAPSULE. PO SCH ×2 (09:02→19:55)
[2020-11-14] MEDS: QUEtiapine 25 MG TABLET. PO SCH ×2 (09:02→19:55)
[2020-11-14] MEDS: FENOFIBRATE NANOCRYSTALLIZED 145 MG TABLET PO SCH (09:02)
[2020-11-14] MEDS: ASPIRIN CHEWABLE 81 MG TABLET. PO SCH (09:02)
[2020-11-14] MEDS: POLYETHYLENE GLYCOL 3350 17 GM PACKET. PO SCH (09:02)
[2020-11-14] MEDS: QUEtiapine 100 MG TABLET. PO SCH ×3 (09:02→19:54)
[2020-11-14] MEDS: carBAMazepine 100 MG TAB.CHEW PO SCH (09:02)
[2020-11-14] MEDS: INSULIN LISPRO 300 UNITS/3 ML VIAL. SQ SCH ×3 (09:03→17:13)
--- NOTE | 2020-11-14 09:36 | NUR ---
Patient yelling out of room. Patient taken to dining to distract her. Patient is calm in group and will call Ricky once group is completed.
[2020-11-14 11:25] LABS: BASO % 1 % (0-3); EOS # 0.3 x10^3/uL (0.0-0.7); EOS % 5 % (0-3); HEMATOCRIT 42.2 % (36.0-47.0); HEMOGLOBIN 13.9 g/dL (12.0-15.5); LYMPH # 2.8 x10^3/uL (1.0-4.8); LYMPH % 42 % (24-48); MEAN CORPUSCULAR HEMOGLOBIN 30 pg (25-35); MEAN CORPUSCULAR HGB CONC 33 g/dL (31-37); MEAN CORPUSCULAR VOLUME 91 fL (79-100); MONO # 0.4 x10^3/uL (0.0-1.1); MONO % 6 % (0-9); NEUT # 3.2 x10^3uL (1.8-7.7); NEUT % 47 % (31-73); PLATELET COUNT 127 x10^3/uL (140-400); RED BLOOD COUNT 4.62 x10^6/uL (3.50-5.40); RED CELL DISTRIBUTION WIDTH 13.6 % (11.5-14.5); WHITE BLOOD COUNT 6.8 x10^3/uL (4.0-11.0)
[2020-11-14 13:38] LABS: CARBAM 10.1 mcg/mL (4.0-12.0)
[2020-11-14 16:39] VITALS: BP 137/54
[2020-11-14 18:04] LABS: ALBUMIN 3.5 g/dL (3.4-5.0); ALBUMIN/GLOBULIN RATIO 0.9 (1.0-1.7); CALCIUM 8.7 mg/dL (8.5-10.1); CREATININE 0.8 mg/dL (0.6-1.0); GFR 70.1; POTASSIUM 4.4 mmol/L (3.5-5.1); TOTAL BILIRUBIN 0.3 mg/dL (0.2-1.0); TOTAL PROTEIN 7.4 g/dL (6.4-8.2)
[2020-11-14] MEDS: traZODone 100 MG TABLET. PO SCH (19:55)
[2020-11-14] MEDS: carBAMazepine 200 MG TABLET PO SCH (19:55)
[2020-11-14] MEDS: MELATONIN 3 MG TABLET PO SCH (19:55)
[2020-11-14] MEDS: hydrOXYzine PAMOATE 25 MG CAPSULE PO PRN (19:57)
[2020-11-14] MEDS: INSULIN GLARGINE SYRINGE. SQ SCH (19:58)
--- NOTE | 2020-11-14 21:03 | PDOC ---
Exam Note: Marcelo Note: This note is a late entry for 11/12/2020 covers elements not covered in my initial note. Subjective: The patient was seen face to face in the evening of 11/12/2020 with Chely HOLLINGSWORTH. The patient slept 5 hours previous night. She has had a very difficult day. She has been yelling in the morning. She did have telephone conversation with Ricky her sister and then did better by the afternoon. She remains obsessive, repetitive. Review of Systems: No CV, , pulmonary, eye, ENT system symptoms on review. She has typical facial and nose expressions as before. Mental Status Exam: The patient is oriented to herself and situation. Speech is coherent, rapid, at times. Abstraction is fair. Computation is impaired. Language function intact. Attention span short. Mood and affect remains labile, obsessive. No suicidal or homicidal ideation. Laboratory Data: Reviewed. Impression: Bipolar 1 disorder mixed with psychotic features. Anxiety disorder unspecified. Impulse control disorder unspecified. Plan: Continue current psychotropics. Tegretol has been increased. Follow labs level. Continue Seroquel at current dosage hydroxyzine, trazodone, melatonin. Luvox is being adjusted. We may need to increase Seroquel further. Assessment: Vital Signs/I&O: Vital Signs Date Time Temp Pulse Resp B/P (MAP) Pulse Ox O2 Delivery O2 Flow Rate FiO2 11/14/20 16:39 97.9 94 18 137/54 (81) 93 11/14/20 06:34 Room Air I & O 11/13/20 11/13/20 11/14/20 15:00 23:00 07:00 Intake Total 480 ml 600 ml Balance 480 ml 600 ml Labs: Laboratory Tests Test 11/14/20 08:25 11/14/20 08:58 11/14/20 12:09 11/14/20 16:51 White Blood Count 6.8 x10^3/uL (4.0-11.0) Red Blood Count 4.62 x10^6/uL (3.50-5.40) Hemoglobin 13.9 g/dL (12.0-15.5) Hematocrit 42.2 % (36.0-47.0) Mean Corpuscular Volume 91 fL (79-100) Mean Corpuscular Hemoglobin 30 pg (25-35) Mean Corpuscular Hemoglobin Concent 33 g/dL (31-37) Red Cell Distribution Width 13.6 % (11.5-14.5) Platelet Count 127 x10^3/uL (140-400) L Neutrophils (%) (Auto) 47 % (31-73) Lymphocytes (%) (Auto) 42 % (24-48) Monocytes (%) (Auto) 6 % (0-9) Eosinophils (%) (Auto) 5 % (0-3) H Basophils (%) (Auto) 1 % (0-3) Neutrophils # (Auto) 3.2 x10^3uL (1.8-7.7) Lymphocytes # (Auto) 2.8 x10^3/uL (1.0-4.8) Monocytes # (Auto) 0.4 x10^3/uL (0.0-1.1) Eosinophils # (Auto) 0.3 x10^3/uL (0.0-0.7) Basophils # (Auto) 0.0 x10^3/uL (0.0-0.2) Sodium Level 140 mmol/L (136-145) Potassium Level 4.4 mmol/L (3.5-5.1) Chloride Level 103 mmol/L (98-107) Carbon Dioxide Level 29 mmol/L (21-32) Anion Gap 8 (6-14) Blood Urea Nitrogen 21 mg/dL (7-20) H Creatinine 0.8 mg/dL (0.6-1.0) Estimated GFR (Cockcroft-Gault) 70.1 BUN/Creatinine Ratio 26 (6-20) H Glucose Level 151 mg/dL (70-99) H Calcium Level 8.7 mg/dL (8.5-10.1) Total Bilirubin 0.3 mg/dL (0.2-1.0) Aspartate Amino Transferase (AST) 22 U/L (15-37) Alanine Aminotransferase (ALT) 20 U/L (14-59) Alkaline Phosphatase 62 U/L (46-116) Total Protein 7.4 g/dL (6.4-8.2) Albumin 3.5 g/dL (3.4-5.0) Albumin/Globulin Ratio 0.9 (1.0-1.7) L Carbamazepine (Tegretol) Level 10.1 mcg/mL (4.0-12.0) Carbamazepine Last Dose Date 11/10/20 Carbamazepine Last Dose Time 2100 Glucose (Fingerstick) 158 mg/dL (70-99) H 279 mg/dL (70-99) H 268 mg/dL (70-99) H Test 11/14/20 19:11 Glucose (Fingerstick) 274 mg/dL (70-99) H Current Medications: Meds: Laboratory Tests Test 11/14/20 08:25 11/14/20 08:58 11/14/20 12:09 11/14/20 16:51 White Blood Count 6.8 x10^3/uL Red Blood Count 4.62 x10^6/uL Hemoglobin 13.9 g/dL Hematocrit 42.2 % Mean Corpuscular Volume 91 fL Mean Corpuscular Hemoglobin 30 pg Mean Corpuscular Hemoglobin Concent 33 g/dL Red Cell Distribution Width 13.6 % Platelet Count 127 x10^3/uL Neutrophils (%) (Auto) 47 % Lymphocytes (%) (Auto) 42 % Monocytes (%) (Auto) 6 % Eosinophils (%) (Auto) 5 % Basophils (%) (Auto) 1 % Neutrophils # (Auto) 3.2 x10^3uL Lymphocytes # (Auto) 2.8 x10^3/uL Monocytes # (Auto) 0.4 x10^3/uL Eosinophils # (Auto) 0.3 x10^3/uL Basophils # (Auto) 0.0 x10^3/uL Sodium Level 140 mmol/L Potassium Level 4.4 mmol/L Chloride Level 103 mmol/L Carbon Dioxide Level 29 mmol/L Anion Gap 8 Blood Urea Nitrogen 21 mg/dL Creatinine 0.8 mg/dL Estimated GFR (Cockcroft-Gault) 70.1 BUN/Creatinine Ratio 26 Glucose Level 151 mg/dL Calcium Level 8.7 mg/dL Total Bilirubin 0.3 mg/dL Aspartate Amino Transf (AST/SGOT) 22 U/L Alanine Aminotransferase (ALT/SGPT) 20 U/L Alkaline Phosphatase 62 U/L Total Protein 7.4 g/dL Albumin 3.5 g/dL Albumin/Globulin Ratio 0.9 Carbamazepine (Tegretol) Level 10.1 mcg/mL Carbamazepine Last Dose Date 11/10/20 Carbamazepine Last Dose Time 2100 Glucose (Fingerstick) 158 mg/dL 279 mg/dL 268 mg/dL Test 11/14/20 19:11 Glucose (Fingerstick) 274 mg/dL Current Medications Medications (Trade) Dose Ordered Sig/Carmina Route PRN Reason Start Time Stop Time Status Last Admin Dose Admin Acetaminophen (Tylenol) 650 mg PRN Q6HRS PRN PO MILD PAIN / TEMP > 100.3'F 11/03/20 23:15 Cancel Multi-Ingredient Ointment (Analgesic [place]) 1 estrellita PRN QID PRN TP MUSCLE PAIN 11/03/20 23:15 Al Hydroxide/Mg Hydroxide (Mylanta Plus Xs) 15 ml PRN AFTMEALHC PRN PO DYSPEPSIA 11/03/20 23:15 Magnesium Hydroxide (Milk Of Magnesia) 2,400 mg PRN QHS PRN PO CONSTIPATION 11/03/20 23:15 Levothyroxine Sodium (Synthroid) 25 mcg DAILY06 PO 11/04/20 06:00 11/14/20 05:25 Pantoprazole Sodium (Protonix) 40 mg DAILYAC PO 11/04/20 07:30 11/14/20 09:02 Acetaminophen (Tylenol) 650 mg PRN Q4HRS PRN PO PAIN 11/04/20 00:45 Aspirin (Aspirin Chewable) 81 mg DAILYWBKFT PO 11/04/20 08:00 11/14/20 09:02 Hydroxyzine Pamoate (Vistaril) 25 mg PRN Q6HRS PRN PO agitation/anxiety 11/04/20 00:45 11/14/20 19:57 Melatonin (Melatonin) 3 mg HS PO 11/04/20 21:00 11/14/20 19:55 Nystatin (Nystop) 1 estrellita PRN BID PRN TP RASH 11/04/20 00:45 Polyethylene Glycol (miraLAX) 17 gm DAILY PO 11/04/20 09:00 11/14/20 09:02 Quetiapine Fumarate (SEROquel) 25 mg BID PO 11/04/20 09:00 11/14/20 19:55 Quetiapine Fumarate (SEROquel) 100 mg TID PO 11/04/20 09:00 11/14/20 19:54 Trazodone HCl (Desyrel) 100 mg HS PO 11/04/20 21:00 11/14/20 19:55 Non-Formulary Medication (Ergocalciferol (Vitamin D2) (Vitamin D2)) 1,250 mcg WEEKLY PO 11/04/20 09:00 11/04/20 15:01 DC Citalopram Hydrobromide (CeleXA) 40 mg DAILY PO 11/04/20 09:00 11/05/20 18:18 DC 11/05/20 08:22 Fenofibrate (Tricor) 145 mg DAILY PO 11/04/20 09:00 11/14/20 09:02 Non-Formulary Medication (Guanfacine Hcl ) 1 tab BID PO 11/04/20 09:00 11/08/20 18:18 DC Non-Formulary Medication (Insulin Aspart (Novolog)) 9 unit TIDWMEALS SQ 11/04/20 08:00 UNV Non-Formulary Medication (Insulin Glargine,Hum.rec.anlog (Lantus Solostar)) 20 unit QHS SQ 11/04/20 21:00 UNV Non-Formulary Medication (Menthol/Zinc Oxide (Calmoseptine Ointment)) 71 gm BID TP 11/04/20 09:00 11/04/20 14:56 DC Insulin Glargine (Lantus Syringe) 20 unit QHS SQ 11/04/20 21:00 11/14/20 19:58 Insulin Human Lispro (HumaLOG) 9 units TIDWMEALS SQ 11/04/20 08:00 11/14/20 17:13 Vitamin D (Vitamin D3) 50,000 unit WEEKLY PO 11/05/20 09:00 11/12/20 08:59 Diphenhydramine HCl (Benadryl) 50 mg PRN Q6HRS PRN PO RASH 11/05/20 11:30 11/06/20 22:51 Oxcarbazepine (Trileptal) 300 mg BID PO 11/05/20 21:00 11/07/20 16:24 DC 11/07/20 09:08 Fluvoxamine Maleate (Luvox) 50 mg QHS PO 11/05/20 21:00 11/13/20 17:24 DC 11/12/20 19:30 Levofloxacin (Levaquin) 250 mg DAILY06 PO 11/06/20 16:00 11/10/20 06:01 DC 11/10/20 05:30 Lactobacillus Rhamnosus (Culturelle) 1 cap BID PO 11/07/20 21:00 11/14/20 19:55 Olanzapine (ZyPREXA ZYDIS) 5 mg PRN Q2HR PRN PO PSYCHOSIS 11/08/20 17:00 11/13/20 21:05 Carbamazepine (TEGretol) 200 mg QHS PO 11/08/20 21:00 11/14/20 19:55 Carbamazepine (TEGretol) 100 mg DAILY PO 11/12/20 09:00 11/14/20 09:02 Fluvoxamine Maleate (Luvox) 75 mg QHS PO 11/13/20 21:00 11/14/20 19:55 I have reviewed the current psychotropics carefully including drug interactions. Risk benefit ratio favors no change other than as noted in my dictated progress note. Diagnosis: Problems: (1) Impulse control disorder (2) Intellectual disability (3) Bipolar affective, mixed, sev w/ psych (4) Obsessive compulsive disorder (5) Anxiety disorder, unspecified IDA LAINEZ MD Nov 14, 2020 21:03
--- NOTE | 2020-11-14 21:37 | PDOC ---
Exam Note: Marcelo Note: Please also refer to the separate dictated note~for this date of service dictated separately.~Patient seen individually. Discussed the patient with Nursing staff reviewed the chart.~Reviewed interim history and current functioning. Reviewed vital signs,~Labs/ Radiology~and current medications noted below. Continue current treatment with the changes noted in the dictated addendum note Assessment: Vital Signs/I&O: Vital Signs Date Time Temp Pulse Resp B/P (MAP) Pulse Ox O2 Delivery O2 Flow Rate FiO2 11/14/20 16:39 97.9 94 18 137/54 (81) 93 11/14/20 06:34 Room Air I & O 11/13/20 11/13/20 11/14/20 15:00 23:00 07:00 Intake Total 480 ml 600 ml Balance 480 ml 600 ml Labs: Laboratory Tests Test 11/14/20 08:25 11/14/20 08:58 11/14/20 12:09 11/14/20 16:51 White Blood Count 6.8 x10^3/uL (4.0-11.0) Red Blood Count 4.62 x10^6/uL (3.50-5.40) Hemoglobin 13.9 g/dL (12.0-15.5) Hematocrit 42.2 % (36.0-47.0) Mean Corpuscular Volume 91 fL (79-100) Mean Corpuscular Hemoglobin 30 pg (25-35) Mean Corpuscular Hemoglobin Concent 33 g/dL (31-37) Red Cell Distribution Width 13.6 % (11.5-14.5) Platelet Count 127 x10^3/uL (140-400) L Neutrophils (%) (Auto) 47 % (31-73) Lymphocytes (%) (Auto) 42 % (24-48) Monocytes (%) (Auto) 6 % (0-9) Eosinophils (%) (Auto) 5 % (0-3) H Basophils (%) (Auto) 1 % (0-3) Neutrophils # (Auto) 3.2 x10^3uL (1.8-7.7) Lymphocytes # (Auto) 2.8 x10^3/uL (1.0-4.8) Monocytes # (Auto) 0.4 x10^3/uL (0.0-1.1) Eosinophils # (Auto) 0.3 x10^3/uL (0.0-0.7) Basophils # (Auto) 0.0 x10^3/uL (0.0-0.2) Sodium Level 140 mmol/L (136-145) Potassium Level 4.4 mmol/L (3.5-5.1) Chloride Level 103 mmol/L (98-107) Carbon Dioxide Level 29 mmol/L (21-32) Anion Gap 8 (6-14) Blood Urea Nitrogen 21 mg/dL (7-20) H Creatinine 0.8 mg/dL (0.6-1.0) Estimated GFR (Cockcroft-Gault) 70.1 BUN/Creatinine Ratio 26 (6-20) H Glucose Level 151 mg/dL (70-99) H Calcium Level 8.7 mg/dL (8.5-10.1) Total Bilirubin 0.3 mg/dL (0.2-1.0) Aspartate Amino Transferase (AST) 22 U/L (15-37) Alanine Aminotransferase (ALT) 20 U/L (14-59) Alkaline Phosphatase 62 U/L (46-116) Total Protein 7.4 g/dL (6.4-8.2) Albumin 3.5 g/dL (3.4-5.0) Albumin/Globulin Ratio 0.9 (1.0-1.7) L Carbamazepine (Tegretol) Level 10.1 mcg/mL (4.0-12.0) Carbamazepine Last Dose Date 11/10/20 Carbamazepine Last Dose Time 2100 Glucose (Fingerstick) 158 mg/dL (70-99) H 279 mg/dL (70-99) H 268 mg/dL (70-99) H Test 11/14/20 19:11 Glucose (Fingerstick) 274 mg/dL (70-99) H Current Medications: Meds: Laboratory Tests Test 11/14/20 08:25 11/14/20 08:58 11/14/20 12:09 11/14/20 16:51 White Blood Count 6.8 x10^3/uL Red Blood Count 4.62 x10^6/uL Hemoglobin 13.9 g/dL Hematocrit 42.2 % Mean Corpuscular Volume 91 fL Mean Corpuscular Hemoglobin 30 pg Mean Corpuscular Hemoglobin Concent 33 g/dL Red Cell Distribution Width 13.6 % Platelet Count 127 x10^3/uL Neutrophils (%) (Auto) 47 % Lymphocytes (%) (Auto) 42 % Monocytes (%) (Auto) 6 % Eosinophils (%) (Auto) 5 % Basophils (%) (Auto) 1 % Neutrophils # (Auto) 3.2 x10^3uL Lymphocytes # (Auto) 2.8 x10^3/uL Monocytes # (Auto) 0.4 x10^3/uL Eosinophils # (Auto) 0.3 x10^3/uL Basophils # (Auto) 0.0 x10^3/uL Sodium Level 140 mmol/L Potassium Level 4.4 mmol/L Chloride Level 103 mmol/L Carbon Dioxide Level 29 mmol/L Anion Gap 8 Blood Urea Nitrogen 21 mg/dL Creatinine 0.8 mg/dL Estimated GFR (Cockcroft-Gault) 70.1 BUN/Creatinine Ratio 26 Glucose Level 151 mg/dL Calcium Level 8.7 mg/dL Total Bilirubin 0.3 mg/dL Aspartate Amino Transf (AST/SGOT) 22 U/L Alanine Aminotransferase (ALT/SGPT) 20 U/L Alkaline Phosphatase 62 U/L Total Protein 7.4 g/dL Albumin 3.5 g/dL Albumin/Globulin Ratio 0.9 Carbamazepine (Tegretol) Level 10.1 mcg/mL Carbamazepine Last Dose Date 11/10/20 Carbamazepine Last Dose Time 2100 Glucose (Fingerstick) 158 mg/dL 279 mg/dL 268 mg/dL Test 11/14/20 19:11 Glucose (Fingerstick) 274 mg/dL Current Medications Medications (Trade) Dose Ordered Sig/Carmina Route PRN Reason Start Time Stop Time Status Last Admin Dose Admin Acetaminophen (Tylenol) 650 mg PRN Q6HRS PRN PO MILD PAIN / TEMP > 100.3'F 11/03/20 23:15 Cancel Multi-Ingredient Ointment (Analgesic Parnell) 1 estrellita PRN QID PRN TP MUSCLE PAIN 11/03/20 23:15 Al Hydroxide/Mg Hydroxide (Mylanta Plus Xs) 15 ml PRN AFTMEALHC PRN PO DYSPEPSIA 11/03/20 23:15 Magnesium Hydroxide (Milk Of Magnesia) 2,400 mg PRN QHS PRN PO CONSTIPATION 11/03/20 23:15 Levothyroxine Sodium (Synthroid) 25 mcg DAILY06 PO 11/04/20 06:00 11/14/20 05:25 Pantoprazole Sodium (Protonix) 40 mg DAILYAC PO 11/04/20 07:30 11/14/20 09:02 Acetaminophen (Tylenol) 650 mg PRN Q4HRS PRN PO PAIN 11/04/20 00:45 Aspirin (Aspirin Chewable) 81 mg DAILYWBKFT PO 11/04/20 08:00 11/14/20 09:02 Hydroxyzine Pamoate (Vistaril) 25 mg PRN Q6HRS PRN PO agitation/anxiety 11/04/20 00:45 11/14/20 19:57 Melatonin (Melatonin) 3 mg HS PO 11/04/20 21:00 11/14/20 19:55 Nystatin (Nystop) 1 estrellita PRN BID PRN TP RASH 11/04/20 00:45 Polyethylene Glycol (miraLAX) 17 gm DAILY PO 11/04/20 09:00 11/14/20 09:02 Quetiapine Fumarate (SEROquel) 25 mg BID PO 11/04/20 09:00 11/14/20 19:55 Quetiapine Fumarate (SEROquel) 100 mg TID PO 11/04/20 09:00 11/14/20 19:54 Trazodone HCl (Desyrel) 100 mg HS PO 11/04/20 21:00 11/14/20 19:55 Non-Formulary Medication (Ergocalciferol (Vitamin D2) (Vitamin D2)) 1,250 mcg WEEKLY PO 11/04/20 09:00 11/04/20 15:01 DC Citalopram Hydrobromide (CeleXA) 40 mg DAILY PO 11/04/20 09:00 11/05/20 18:18 DC 11/05/20 08:22 Fenofibrate (Tricor) 145 mg DAILY PO 11/04/20 09:00 11/14/20 09:02 Non-Formulary Medication (Guanfacine Hcl ) 1 tab BID PO 11/04/20 09:00 11/08/20 18:18 DC Non-Formulary Medication (Insulin Aspart (Novolog)) 9 unit TIDWMEALS SQ 11/04/20 08:00 UNV Non-Formulary Medication (Insulin Glargine,Hum.rec.anlog (Lantus Solostar)) 20 unit QHS SQ 11/04/20 21:00 UNV Non-Formulary Medication (Menthol/Zinc Oxide (Calmoseptine Ointment)) 71 gm BID TP 11/04/20 09:00 11/04/20 14:56 DC Insulin Glargine (Lantus Syringe) 20 unit QHS SQ 11/04/20 21:00 11/14/20 19:58 Insulin Human Lispro (HumaLOG) 9 units TIDWMEALS SQ 11/04/20 08:00 11/14/20 17:13 Vitamin D (Vitamin D3) 50,000 unit WEEKLY PO 11/05/20 09:00 11/12/20 08:59 Diphenhydramine HCl (Benadryl) 50 mg PRN Q6HRS PRN PO RASH 11/05/20 11:30 11/06/20 22:51 Oxcarbazepine (Trileptal) 300 mg BID PO 11/05/20 21:00 11/07/20 16:24 DC 11/07/20 09:08 Fluvoxamine Maleate (Luvox) 50 mg QHS PO 11/05/20 21:00 11/13/20 17:24 DC 11/12/20 19:30 Levofloxacin (Levaquin) 250 mg DAILY06 PO 11/06/20 16:00 11/10/20 06:01 DC 11/10/20 05:30 Lactobacillus Rhamnosus (Culturelle) 1 cap BID PO 11/07/20 21:00 11/14/20 19:55 Olanzapine (ZyPREXA ZYDIS) 5 mg PRN Q2HR PRN PO PSYCHOSIS 11/08/20 17:00 11/13/20 21:05 Carbamazepine (TEGretol) 200 mg QHS PO 11/08/20 21:00 11/14/20 19:55 Carbamazepine (TEGretol) 100 mg DAILY PO 11/12/20 09:00 11/14/20 09:02 Fluvoxamine Maleate (Luvox) 75 mg QHS PO 11/13/20 21:00 11/14/20 19:55 I have reviewed the current psychotropics carefully including drug interactions. Risk benefit ratio favors no change other than as noted in my dictated progress note. Diagnosis: Problems: (1) Obsessive compulsive disorder (2) Impulse control disorder (3) Anxiety disorder, unspecified (4) Bipolar affective, mixed, sev w/ psych (5) Intellectual disability IDA LAINEZ MD Nov 14, 2020 21:37
--- NOTE | 2020-11-14 21:37 | PDOC ---
Exam Note: Marcelo Note: This note is a late entry for 11/13/2020 covers elements not covered in my initial note. Subjective: The patient was seen face to face in the evening of 11/13/2020 with Pratima HOLLINGSWORTH. The patient slept 5-3/4 hours previous night. She again had a very difficult day. She was yelling, hollering, repetitive, loud, [facility] entire unit is quite in turmoil with patients complaining because of the patients yelling. She has received Vistaril x1. For a brief time in the evening she was better, then yelling again. I met with her in the evening of 11/13 in the [facility]. She is repetitive, anxious, yelling, loud. Review of Systems: No CV, , pulmonary, eye, ENT system symptoms on review. Mental Status Exam: The patient is oriented to herself and situation. Speech is coherent, rapid, at times. Abstraction is fair. Computation is impaired. Language function intact. No suicidal or homicidal ideation. She is quite obsessive. Laboratory Data: Reviewed. Impression: Bipolar 1 disorder mixed with psychotic features. OCD. Anxiety d isorder unspecified. Impulse control disorder unspecified. Plan: On account of her marked obsessive symptoms, increase Luvox from 50 mg h.s. to 75 mg h.s. Maintain Tegretol, Seroquel, hydroxyzine, trazodone, melatonin unchanged for now. Check labs level on the Tegretol on 11/14. Adjust further as clinically indicated. Assessment: Vital Signs/I&O: Vital Signs Date Time Temp Pulse Resp B/P (MAP) Pulse Ox O2 Delivery O2 Flow Rate FiO2 11/14/20 16:39 97.9 94 18 137/54 (81) 93 11/14/20 06:34 Room Air I & O 11/13/20 11/13/20 11/14/20 15:00 23:00 07:00 Intake Total 480 ml 600 ml Balance 480 ml 600 ml Labs: Laboratory Tests Test 11/14/20 08:25 11/14/20 08:58 11/14/20 12:09 11/14/20 16:51 White Blood Count 6.8 x10^3/uL (4.0-11.0) Red Blood Count 4.62 x10^6/uL (3.50-5.40) Hemoglobin 13.9 g/dL (12.0-15.5) Hematocrit 42.2 % (36.0-47.0) Mean Corpuscular Volume 91 fL (79-100) Mean Corpuscular Hemoglobin 30 pg (25-35) Mean Corpuscular Hemoglobin Concent 33 g/dL (31-37) Red Cell Distribution Width 13.6 % (11.5-14.5) Platelet Count 127 x10^3/uL (140-400) L Neutrophils (%) (Auto) 47 % (31-73) Lymphocytes (%) (Auto) 42 % (24-48) Monocytes (%) (Auto) 6 % (0-9) Eosinophils (%) (Auto) 5 % (0-3) H Basophils (%) (Auto) 1 % (0-3) Neutrophils # (Auto) 3.2 x10^3uL (1.8-7.7) Lymphocytes # (Auto) 2.8 x10^3/uL (1.0-4.8) Monocytes # (Auto) 0.4 x10^3/uL (0.0-1.1) Eosinophils # (Auto) 0.3 x10^3/uL (0.0-0.7) Basophils # (Auto) 0.0 x10^3/uL (0.0-0.2) Sodium Level 140 mmol/L (136-145) Potassium Level 4.4 mmol/L (3.5-5.1) Chloride Level 103 mmol/L (98-107) Carbon Dioxide Level 29 mmol/L (21-32) Anion Gap 8 (6-14) Blood Urea Nitrogen 21 mg/dL (7-20) H Creatinine 0.8 mg/dL (0.6-1.0) Estimated GFR (Cockcroft-Gault) 70.1 BUN/Creatinine Ratio 26 (6-20) H Glucose Level 151 mg/dL (70-99) H Calcium Level 8.7 mg/dL (8.5-10.1) Total Bilirubin 0.3 mg/dL (0.2-1.0) Aspartate Amino Transferase (AST) 22 U/L (15-37) Alanine Aminotransferase (ALT) 20 U/L (14-59) Alkaline Phosphatase 62 U/L (46-116) Total Protein 7.4 g/dL (6.4-8.2) Albumin 3.5 g/dL (3.4-5.0) Albumin/Globulin Ratio 0.9 (1.0-1.7) L Carbamazepine (Tegretol) Level 10.1 mcg/mL (4.0-12.0) Carbamazepine Last Dose Date 11/10/20 Carbamazepine Last Dose Time 2100 Glucose (Fingerstick) 158 mg/dL (70-99) H 279 mg/dL (70-99) H 268 mg/dL (70-99) H Test 11/14/20 19:11 Glucose (Fingerstick) 274 mg/dL (70-99) H Current Medications: Meds: Laboratory Tests Test 11/14/20 08:25 11/14/20 08:58 11/14/20 12:09 11/14/20 16:51 White Blood Count 6.8 x10^3/uL Red Blood Count 4.62 x10^6/uL Hemoglobin 13.9 g/dL Hematocrit 42.2 % Mean Corpuscular Volume 91 fL Mean Corpuscular Hemoglobin 30 pg Mean Corpuscular Hemoglobin Concent 33 g/dL Red Cell Distribution Width 13.6 % Platelet Count 127 x10^3/uL Neutrophils (%) (Auto) 47 % Lymphocytes (%) (Auto) 42 % Monocytes (%) (Auto) 6 % Eosinophils (%) (Auto) 5 % Basophils (%) (Auto) 1 % Neutrophils # (Auto) 3.2 x10^3uL Lymphocytes # (Auto) 2.8 x10^3/uL Monocytes # (Auto) 0.4 x10^3/uL Eosinophils # (Auto) 0.3 x10^3/uL Basophils # (Auto) 0.0 x10^3/uL Sodium Level 140 mmol/L Potassium Level 4.4 mmol/L Chloride Level 103 mmol/L Carbon Dioxide Level 29 mmol/L Anion Gap 8 Blood Urea Nitrogen 21 mg/dL Creatinine 0.8 mg/dL Estimated GFR (Cockcroft-Gault) 70.1 BUN/Creatinine Ratio 26 Glucose Level 151 mg/dL Calcium Level 8.7 mg/dL Total Bilirubin 0.3 mg/dL Aspartate Amino Transf (AST/SGOT) 22 U/L Alanine Aminotransferase (ALT/SGPT) 20 U/L Alkaline Phosphatase 62 U/L Total Protein 7.4 g/dL Albumin 3.5 g/dL Albumin/Globulin Ratio 0.9 Carbamazepine (Tegretol) Level 10.1 mcg/mL Carbamazepine Last Dose Date 11/10/20 Carbamazepine Last Dose Time 2100 Glucose (Fingerstick) 158 mg/dL 279 mg/dL 268 mg/dL Test 11/14/20 19:11 Glucose (Fingerstick) 274 mg/dL Current Medications Medications (Trade) Dose Ordered Sig/Carmina Route PRN Reason Start Time Stop Time Status Last Admin Dose Admin Acetaminophen (Tylenol) 650 mg PRN Q6HRS PRN PO MILD PAIN / TEMP > 100.3'F 11/03/20 23:15 Cancel Multi-Ingredient Ointment (Analgesic Priddy) 1 estrellita PRN QID PRN TP MUSCLE PAIN 11/03/20 23:15 Al Hydroxide/Mg Hydroxide (Mylanta Plus Xs) 15 ml PRN AFTMEALHC PRN PO DYSPEPSIA 11/03/20 23:15 Magnesium Hydroxide (Milk Of Magnesia) 2,400 mg PRN QHS PRN PO CONSTIPATION 11/03/20 23:15 Levothyroxine Sodium (Synthroid) 25 mcg DAILY06 PO 11/04/20 06:00 11/14/20 05:25 Pantoprazole Sodium (Protonix) 40 mg DAILYAC PO 11/04/20 07:30 11/14/20 09:02 Acetaminophen (Tylenol) 650 mg PRN Q4HRS PRN PO PAIN 11/04/20 00:45 Aspirin (Aspirin Chewable) 81 mg DAILYWBKFT PO 11/04/20 08:00 11/14/20 09:02 Hydroxyzine Pamoate (Vistaril) 25 mg PRN Q6HRS PRN PO agitation/anxiety 11/04/20 00:45 11/14/20 19:57 Melatonin (Melatonin) 3 mg HS PO 11/04/20 21:00 11/14/20 19:55 Nystatin (Nystop) 1 estrellita PRN BID PRN TP RASH 11/04/20 00:45 Polyethylene Glycol (miraLAX) 17 gm DAILY PO 11/04/20 09:00 11/14/20 09:02 Quetiapine Fumarate (SEROquel) 25 mg BID PO 11/04/20 09:00 11/14/20 19:55 Quetiapine Fumarate (SEROquel) 100 mg TID PO 11/04/20 09:00 11/14/20 19:54 Trazodone HCl (Desyrel) 100 mg HS PO 11/04/20 21:00 11/14/20 19:55 Non-Formulary Medication (Ergocalciferol (Vitamin D2) (Vitamin D2)) 1,250 mcg WEEKLY PO 11/04/20 09:00 11/04/20 15:01 DC Citalopram Hydrobromide (CeleXA) 40 mg DAILY PO 11/04/20 09:00 11/05/20 18:18 DC 11/05/20 08:22 Fenofibrate (Tricor) 145 mg DAILY PO 11/04/20 09:00 11/14/20 09:02 Non-Formulary Medication (Guanfacine Hcl ) 1 tab BID PO 11/04/20 09:00 11/08/20 18:18 DC Non-Formulary Medication (Insulin Aspart (Novolog)) 9 unit TIDWMEALS SQ 11/04/20 08:00 UNV Non-Formulary Medication (Insulin Glargine,Hum.rec.anlog (Lantus Solostar)) 20 unit QHS SQ 11/04/20 21:00 UNV Non-Formulary Medication (Menthol/Zinc Oxide (Calmoseptine Ointment)) 71 gm BID TP 11/04/20 09:00 11/04/20 14:56 DC Insulin Glargine (Lantus Syringe) 20 unit QHS SQ 11/04/20 21:00 11/14/20 19:58 Insulin Human Lispro (HumaLOG) 9 units TIDWMEALS SQ 11/04/20 08:00 11/14/20 17:13 Vitamin D (Vitamin D3) 50,000 unit WEEKLY PO 11/05/20 09:00 11/12/20 08:59 Diphenhydramine HCl (Benadryl) 50 mg PRN Q6HRS PRN PO RASH 11/05/20 11:30 11/06/20 22:51 Oxcarbazepine (Trileptal) 300 mg BID PO 11/05/20 21:00 11/07/20 16:24 DC 11/07/20 09:08 Fluvoxamine Maleate (Luvox) 50 mg QHS PO 11/05/20 21:00 11/13/20 17:24 DC 11/12/20 19:30 Levofloxacin (Levaquin) 250 mg DAILY06 PO 11/06/20 16:00 11/10/20 06:01 DC 11/10/20 05:30 Lactobacillus Rhamnosus (Culturelle) 1 cap BID PO 11/07/20 21:00 11/14/20 19:55 Olanzapine (ZyPREXA ZYDIS) 5 mg PRN Q2HR PRN PO PSYCHOSIS 11/08/20 17:00 11/13/20 21:05 Carbamazepine (TEGretol) 200 mg QHS PO 11/08/20 21:00 11/14/20 19:55 Carbamazepine (TEGretol) 100 mg DAILY PO 11/12/20 09:00 11/14/20 09:02 Fluvoxamine Maleate (Luvox) 75 mg QHS PO 11/13/20 21:00 11/14/20 19:55 I have reviewed the current psychotropics carefully including drug interactions. Risk benefit ratio favors no change other than as noted in my dictated progress note. Diagnosis: Problems: (1) Obsessive compulsive disorder (2) Impulse control disorder (3) Intellectual disability (4) Bipolar affective, mixed, sev w/ psych (5) Anxiety disorder, unspecified IDA LAINEZ MD Nov 14, 2020 21:37
--- NOTE | 2020-11-14 23:20 | NUR ---
Pt yelling intermittently throughout the evening. Pt wandering unit, intrusive at times. Compliant with whole medications. PRN Vistaril administered with HS medications. Pt yelled on/off once put in bed but is sleeping at this time.
[2020-11-15] MEDS: LEVOTHYROXINE 25 MCG TABLET. PO SCH (05:15)
[2020-11-15 06:19] VITALS: BP 147/77
[2020-11-15] MEDS: LACTOBACILLUS RHAMNOSUS GG 1 CAPSULE. PO SCH ×2 (07:49→19:38)
[2020-11-15] MEDS: carBAMazepine 100 MG TAB.CHEW PO SCH (07:49)
[2020-11-15] MEDS: FENOFIBRATE NANOCRYSTALLIZED 145 MG TABLET PO SCH (07:49)
[2020-11-15] MEDS: ASPIRIN CHEWABLE 81 MG TABLET. PO SCH (07:49)
[2020-11-15] MEDS: PANTOPRAZOLE 40 MG TABLET. PO SCH (07:50)
[2020-11-15] MEDS: QUEtiapine 25 MG TABLET. PO SCH ×2 (07:50→19:38)
[2020-11-15] MEDS: QUEtiapine 100 MG TABLET. PO SCH ×3 (07:50→19:38)
[2020-11-15] MEDS: POLYETHYLENE GLYCOL 3350 17 GM PACKET. PO SCH (07:50)
[2020-11-15] MEDS: INSULIN LISPRO 300 UNITS/3 ML VIAL. SQ SCH ×3 (07:55→17:06)
--- NOTE | 2020-11-15 08:21 | PDOC ---
Exam Note: Marcelo Note: This note is a late entry for 11/14/2020 covers elements not covered in my initial note. Subjective: The patient was seen face to face in the evening of 11/14/2020 with Ferny HOLLINGSWORTH. Discussed with nursing staff, reviewed the chart. The patient slept 7-1/4 hours previous night. She has had a very difficult day. Nursing staff had called me earlier. She did well till about 2 p.m., then was agitated due to another patient on the unit, then was verbally abusive to the nursing staff saying shut up amongst other things. She defecated in the hallway when she was placed in the [facility]. Tegretol level is 10.1, WBC 6.8. Review of Systems: No CV, , pulmonary, eye, ENT system symptoms on review. Reliability varies. Mental Status Exam: The patient is oriented to herself and situation. Speech is coherent, rapid, at times. Abstraction is fair. Computation is impaired. Language function intact. Attention span is short. Mood and affect remains somewhat labile. Laboratory Data: Reviewed. Impression: Bipolar 1 disorder mixed with psychotic features. OCD. Anxiety disorder unspecified. Impulse control disorder unspecified. Plan: Continue psychotropics from initial note including Tegretol since level is therapeutic. We may need to increase Luvox and Seroquel. Rest unchanged for now. Assessment: Vital Signs/I&O: Vital Signs Date Time Temp Pulse Resp B/P (MAP) Pulse Ox O2 Delivery O2 Flow Rate FiO2 11/15/20 06:19 97.8 82 18 147/77 (100) 95 Room Air I & O 11/14/20 11/14/20 11/15/20 15:00 23:00 07:00 Intake Total 480 ml 240 ml Balance 480 ml 240 ml Labs: Laboratory Tests Test 11/14/20 08:25 11/14/20 08:58 11/14/20 12:09 11/14/20 16:51 White Blood Count 6.8 x10^3/uL (4.0-11.0) Red Blood Count 4.62 x10^6/uL (3.50-5.40) Hemoglobin 13.9 g/dL (12.0-15.5) Hematocrit 42.2 % (36.0-47.0) Mean Corpuscular Volume 91 fL (79-100) Mean Corpuscular Hemoglobin 30 pg (25-35) Mean Corpuscular Hemoglobin Concent 33 g/dL (31-37) Red Cell Distribution Width 13.6 % (11.5-14.5) Platelet Count 127 x10^3/uL (140-400) L Neutrophils (%) (Auto) 47 % (31-73) Lymphocytes (%) (Auto) 42 % (24-48) Monocytes (%) (Auto) 6 % (0-9) Eosinophils (%) (Auto) 5 % (0-3) H Basophils (%) (Auto) 1 % (0-3) Neutrophils # (Auto) 3.2 x10^3uL (1.8-7.7) Lymphocytes # (Auto) 2.8 x10^3/uL (1.0-4.8) Monocytes # (Auto) 0.4 x10^3/uL (0.0-1.1) Eosinophils # (Auto) 0.3 x10^3/uL (0.0-0.7) Basophils # (Auto) 0.0 x10^3/uL (0.0-0.2) Sodium Level 140 mmol/L (136-145) Potassium Level 4.4 mmol/L (3.5-5.1) Chloride Level 103 mmol/L (98-107) Carbon Dioxide Level 29 mmol/L (21-32) Anion Gap 8 (6-14) Blood Urea Nitrogen 21 mg/dL (7-20) H Creatinine 0.8 mg/dL (0.6-1.0) Estimated GFR (Cockcroft-Gault) 70.1 BUN/Creatinine Ratio 26 (6-20) H Glucose Level 151 mg/dL (70-99) H Calcium Level 8.7 mg/dL (8.5-10.1) Total Bilirubin 0.3 mg/dL (0.2-1.0) Aspartate Amino Transferase (AST) 22 U/L (15-37) Alanine Aminotransferase (ALT) 20 U/L (14-59) Alkaline Phosphatase 62 U/L (46-116) Total Protein 7.4 g/dL (6.4-8.2) Albumin 3.5 g/dL (3.4-5.0) Albumin/Globulin Ratio 0.9 (1.0-1.7) L Carbamazepine (Tegretol) Level 10.1 mcg/mL (4.0-12.0) Carbamazepine Last Dose Date 11/10/20 Carbamazepine Last Dose Time 2100 Glucose (Fingerstick) 158 mg/dL (70-99) H 279 mg/dL (70-99) H 268 mg/dL (70-99) H Test 11/14/20 19:11 11/15/20 07:43 Glucose (Fingerstick) 274 mg/dL (70-99) H 175 mg/dL (70-99) H Current Medications: Meds: Laboratory Tests Test 11/14/20 08:25 11/14/20 08:58 11/14/20 12:09 11/14/20 16:51 White Blood Count 6.8 x10^3/uL Red Blood Count 4.62 x10^6/uL Hemoglobin 13.9 g/dL Hematocrit 42.2 % Mean Corpuscular Volume 91 fL Mean Corpuscular Hemoglobin 30 pg Mean Corpuscular Hemoglobin Concent 33 g/dL Red Cell Distribution Width 13.6 % Platelet Count 127 x10^3/uL Neutrophils (%) (Auto) 47 % Lymphocytes (%) (Auto) 42 % Monocytes (%) (Auto) 6 % Eosinophils (%) (Auto) 5 % Basophils (%) (Auto) 1 % Neutrophils # (Auto) 3.2 x10^3uL Lymphocytes # (Auto) 2.8 x10^3/uL Monocytes # (Auto) 0.4 x10^3/uL Eosinophils # (Auto) 0.3 x10^3/uL Basophils # (Auto) 0.0 x10^3/uL Sodium Level 140 mmol/L Potassium Level 4.4 mmol/L Chloride Level 103 mmol/L Carbon Dioxide Level 29 mmol/L Anion Gap 8 Blood Urea Nitrogen 21 mg/dL Creatinine 0.8 mg/dL Estimated GFR (Cockcroft-Gault) 70.1 BUN/Creatinine Ratio 26 Glucose Level 151 mg/dL Calcium Level 8.7 mg/dL Total Bilirubin 0.3 mg/dL Aspartate Amino Transf (AST/SGOT) 22 U/L Alanine Aminotransferase (ALT/SGPT) 20 U/L Alkaline Phosphatase 62 U/L Total Protein 7.4 g/dL Albumin 3.5 g/dL Albumin/Globulin Ratio 0.9 Carbamazepine (Tegretol) Level 10.1 mcg/mL Carbamazepine Last Dose Date 11/10/20 Carbamazepine Last Dose Time 2100 Glucose (Fingerstick) 158 mg/dL 279 mg/dL 268 mg/dL Test 11/14/20 19:11 11/15/20 07:43 Glucose (Fingerstick) 274 mg/dL 175 mg/dL Current Medications Medications (Trade) Dose Ordered Sig/Carmina Route PRN Reason Start Time Stop Time Status Last Admin Dose Admin Acetaminophen (Tylenol) 650 mg PRN Q6HRS PRN PO MILD PAIN / TEMP > 100.3'F 11/03/20 23:15 Cancel Multi-Ingredient Ointment (Analgesic [place]) 1 estrellita PRN QID PRN TP MUSCLE PAIN 11/03/20 23:15 Al Hydroxide/Mg Hydroxide (Mylanta Plus Xs) 15 ml PRN AFTMEALHC PRN PO DYSPEPSIA 11/03/20 23:15 Magnesium Hydroxide (Milk Of Magnesia) 2,400 mg PRN QHS PRN PO CONSTIPATION 11/03/20 23:15 Levothyroxine Sodium (Synthroid) 25 mcg DAILY06 PO 11/04/20 06:00 11/15/20 05:15 Pantoprazole Sodium (Protonix) 40 mg DAILYAC PO 11/04/20 07:30 11/15/20 07:50 Acetaminophen (Tylenol) 650 mg PRN Q4HRS PRN PO PAIN 11/04/20 00:45 Aspirin (Aspirin Chewable) 81 mg DAILYWBKFT PO 11/04/20 08:00 11/15/20 07:49 Hydroxyzine Pamoate (Vistaril) 25 mg PRN Q6HRS PRN PO agitation/anxiety 11/04/20 00:45 11/14/20 19:57 Melatonin (Melatonin) 3 mg HS PO 11/04/20 21:00 11/14/20 19:55 Nystatin (Nystop) 1 estrellita PRN BID PRN TP RASH 11/04/20 00:45 Polyethylene Glycol (miraLAX) 17 gm DAILY PO 11/04/20 09:00 11/15/20 07:50 Quetiapine Fumarate (SEROquel) 25 mg BID PO 11/04/20 09:00 11/15/20 07:50 Quetiapine Fumarate (SEROquel) 100 mg TID PO 11/04/20 09:00 11/15/20 07:50 Trazodone HCl (Desyrel) 100 mg HS PO 11/04/20 21:00 11/14/20 19:55 Non-Formulary Medication (Ergocalciferol (Vitamin D2) (Vitamin D2)) 1,250 mcg WEEKLY PO 11/04/20 09:00 11/04/20 15:01 DC Citalopram Hydrobromide (CeleXA) 40 mg DAILY PO 11/04/20 09:00 11/05/20 18:18 DC 11/05/20 08:22 Fenofibrate (Tricor) 145 mg DAILY PO 11/04/20 09:00 11/15/20 07:49 Non-Formulary Medication (Guanfacine Hcl ) 1 tab BID PO 11/04/20 09:00 11/08/20 18:18 DC Non-Formulary Medication (Insulin Aspart (Novolog)) 9 unit TIDWMEALS SQ 11/04/20 08:00 UNV Non-Formulary Medication (Insulin Glargine,Hum.rec.anlog (Lantus Solostar)) 20 unit QHS SQ 11/04/20 21:00 UNV Non-Formulary Medication (Menthol/Zinc Oxide (Calmoseptine Ointment)) 71 gm BID TP 11/04/20 09:00 11/04/20 14:56 DC Insulin Glargine (Lantus Syringe) 20 unit QHS SQ 11/04/20 21:00 11/14/20 19:58 Insulin Human Lispro (HumaLOG) 9 units TIDWMEALS SQ 11/04/20 08:00 11/15/20 07:55 Vitamin D (Vitamin D3) 50,000 unit WEEKLY PO 11/05/20 09:00 11/12/20 08:59 Diphenhydramine HCl (Benadryl) 50 mg PRN Q6HRS PRN PO RASH 11/05/20 11:30 11/06/20 22:51 Oxcarbazepine (Trileptal) 300 mg BID PO 11/05/20 21:00 11/07/20 16:24 DC 11/07/20 09:08 Fluvoxamine Maleate (Luvox) 50 mg QHS PO 11/05/20 21:00 11/13/20 17:24 DC 11/12/20 19:30 Levofloxacin (Levaquin) 250 mg DAILY06 PO 11/06/20 16:00 11/10/20 06:01 DC 11/10/20 05:30 Lactobacillus Rhamnosus (Culturelle) 1 cap BID PO 11/07/20 21:00 11/15/20 07:49 Olanzapine (ZyPREXA ZYDIS) 5 mg PRN Q2HR PRN PO PSYCHOSIS 11/08/20 17:00 11/13/20 21:05 Carbamazepine (TEGretol) 200 mg QHS PO 11/08/20 21:00 11/14/20 19:55 Carbamazepine (TEGretol) 100 mg DAILY PO 11/12/20 09:00 11/15/20 07:49 Fluvoxamine Maleate (Luvox) 75 mg QHS PO 11/13/20 21:00 11/14/20 19:55 I have reviewed the current psychotropics carefully including drug interactions. Risk benefit ratio favors no change other than as noted in my dictated progress note. Diagnosis: Problems: (1) Obsessive compulsive disorder (2) Impulse control disorder (3) Intellectual disability (4) Anxiety disorder, unspecified (5) Bipolar affective, mixed, sev w/ psych IDA LAINEZ MD Nov 15, 2020 08:21
--- NOTE | 2020-11-15 14:16 | NUR ---
Patient in room sitting on edge of bed eating breakfast at time of assessment. Patient takes medications whole with no problems. Patient is cooperative but confused and forgetful. She continues to yell out but is easily directed. She typically yells out when she needs something or help with something. Patient has no complaints and there are no further concerns at this time.
[2020-11-15 16:23] VITALS: BP 119/65
[2020-11-15] MEDS: MELATONIN 3 MG TABLET PO SCH (19:38)
[2020-11-15] MEDS: carBAMazepine 200 MG TABLET PO SCH (19:38)
[2020-11-15] MEDS: traZODone 100 MG TABLET. PO SCH (19:38)
[2020-11-15] MEDS: hydrOXYzine PAMOATE 25 MG CAPSULE PO PRN (19:39)
[2020-11-15] MEDS: INSULIN GLARGINE SYRINGE. SQ SCH (20:48)
--- NOTE | 2020-11-15 21:04 | PDOC ---
Exam Note: Marcelo Note: Please also refer to the separate dictated note~for this date of service dictated separately.~Patient seen individually. Discussed the patient with Nursing staff reviewed the chart.~Reviewed interim history and current functioning. Reviewed vital signs,~Labs/ Radiology~and current medications noted below. Continue current treatment with the changes noted in the dictated addendum note Assessment: Vital Signs/I&O: Vital Signs Date Time Temp Pulse Resp B/P (MAP) Pulse Ox O2 Delivery O2 Flow Rate FiO2 11/15/20 16:23 98.8 89 16 119/65 (83) 94 11/15/20 06:19 Room Air I & O 11/14/20 11/14/20 11/15/20 14:59 22:59 06:59 Intake Total 480 ml 240 ml Balance 480 ml 240 ml Labs: Laboratory Tests Test 11/15/20 07:43 11/15/20 11:55 11/15/20 17:02 11/15/20 19:15 Glucose (Fingerstick) 175 mg/dL (70-99) H 260 mg/dL (70-99) H 296 mg/dL (70-99) H 344 mg/dL (70-99) H Current Medications: Meds: Laboratory Tests Test 11/15/20 07:43 11/15/20 11:55 11/15/20 17:02 11/15/20 19:15 Glucose (Fingerstick) 175 mg/dL 260 mg/dL 296 mg/dL 344 mg/dL Current Medications Medications (Trade) Dose Ordered Sig/Carmina Route PRN Reason Start Time Stop Time Status Last Admin Dose Admin Acetaminophen (Tylenol) 650 mg PRN Q6HRS PRN PO MILD PAIN / TEMP > 100.3'F 11/03/20 23:15 Cancel Multi-Ingredient Ointment (Analgesic [place]) 1 estrellita PRN QID PRN TP MUSCLE PAIN 11/03/20 23:15 Al Hydroxide/Mg Hydroxide (Mylanta Plus Xs) 15 ml PRN AFTMEALHC PRN PO DYSPEPSIA 11/03/20 23:15 Magnesium Hydroxide (Milk Of Magnesia) 2,400 mg PRN QHS PRN PO CONSTIPATION 11/03/20 23:15 Levothyroxine Sodium (Synthroid) 25 mcg DAILY06 PO 11/04/20 06:00 11/15/20 05:15 Pantoprazole Sodium (Protonix) 40 mg DAILYAC PO 11/04/20 07:30 11/15/20 07:50 Acetaminophen (Tylenol) 650 mg PRN Q4HRS PRN PO PAIN 11/04/20 00:45 Aspirin (Aspirin Chewable) 81 mg DAILYWBKFT PO 11/04/20 08:00 11/15/20 07:49 Hydroxyzine Pamoate (Vistaril) 25 mg PRN Q6HRS PRN PO agitation/anxiety 11/04/20 00:45 11/15/20 19:39 Melatonin (Melatonin) 3 mg HS PO 11/04/20 21:00 11/15/20 19:38 Nystatin (Nystop) 1 estrellita PRN BID PRN TP RASH 11/04/20 00:45 Polyethylene Glycol (miraLAX) 17 gm DAILY PO 11/04/20 09:00 11/15/20 07:50 Quetiapine Fumarate (SEROquel) 25 mg BID PO 11/04/20 09:00 11/15/20 19:38 Quetiapine Fumarate (SEROquel) 100 mg TID PO 11/04/20 09:00 11/15/20 19:38 Trazodone HCl (Desyrel) 100 mg HS PO 11/04/20 21:00 11/15/20 19:38 Non-Formulary Medication (Ergocalciferol (Vitamin D2) (Vitamin D2)) 1,250 mcg WEEKLY PO 11/04/20 09:00 11/04/20 15:01 DC Citalopram Hydrobromide (CeleXA) 40 mg DAILY PO 11/04/20 09:00 11/05/20 18:18 DC 11/05/20 08:22 Fenofibrate (Tricor) 145 mg DAILY PO 11/04/20 09:00 11/15/20 07:49 Non-Formulary Medication (Guanfacine Hcl ) 1 tab BID PO 11/04/20 09:00 11/08/20 18:18 DC Non-Formulary Medication (Insulin Aspart (Novolog)) 9 unit TIDWMEALS SQ 11/04/20 08:00 UNV Non-Formulary Medication (Insulin Glargine,Hum.rec.anlog (Lantus Solostar)) 20 unit QHS SQ 11/04/20 21:00 UNV Non-Formulary Medication (Menthol/Zinc Oxide (Calmoseptine Ointment)) 71 gm BID TP 11/04/20 09:00 11/04/20 14:56 DC Insulin Glargine (Lantus Syringe) 20 unit QHS SQ 11/04/20 21:00 11/15/20 20:48 Insulin Human Lispro (HumaLOG) 9 units TIDWMEALS SQ 11/04/20 08:00 11/15/20 17:06 Vitamin D (Vitamin D3) 50,000 unit WEEKLY PO 11/05/20 09:00 11/12/20 08:59 Diphenhydramine HCl (Benadryl) 50 mg PRN Q6HRS PRN PO RASH 11/05/20 11:30 11/06/20 22:51 Oxcarbazepine (Trileptal) 300 mg BID PO 11/05/20 21:00 11/07/20 16:24 DC 11/07/20 09:08 Fluvoxamine Maleate (Luvox) 50 mg QHS PO 11/05/20 21:00 11/13/20 17:24 DC 11/12/20 19:30 Levofloxacin (Levaquin) 250 mg DAILY06 PO 11/06/20 16:00 11/10/20 06:01 DC 11/10/20 05:30 Lactobacillus Rhamnosus (Culturelle) 1 cap BID PO 11/07/20 21:00 11/15/20 19:38 Olanzapine (ZyPREXA ZYDIS) 5 mg PRN Q2HR PRN PO PSYCHOSIS 11/08/20 17:00 11/13/20 21:05 Carbamazepine (TEGretol) 200 mg QHS PO 11/08/20 21:00 11/15/20 19:38 Carbamazepine (TEGretol) 100 mg DAILY PO 11/12/20 09:00 11/15/20 07:49 Fluvoxamine Maleate (Luvox) 75 mg QHS PO 11/13/20 21:00 11/15/20 19:38 I have reviewed the current psychotropics carefully including drug interactions. Risk benefit ratio favors no change other than as noted in my dictated progress note. Diagnosis: Problems: (1) Bipolar affective, mixed, sev w/ psych (2) Anxiety disorder, unspecified (3) Intellectual disability (4) Impulse control disorder (5) Obsessive compulsive disorder IDA LAINEZ MD Nov 15, 2020 21:04
--- NOTE | 2020-11-15 23:06 | NUR ---
Pt continues to yell out intermittently. Unable to be redirected. Compliant with whole medications. PRN Vistaril administered with HS medications. Once placed in bed, pt was restless and continued to yell out. PRN Zyprexa administered. Pt currently sleeping in bed.
[2020-11-16] MEDS: LEVOTHYROXINE 25 MCG TABLET. PO SCH (05:36)
[2020-11-16 06:38] VITALS: BP 96/62
[2020-11-16] MEDS: ASPIRIN CHEWABLE 81 MG TABLET. PO SCH (07:49)
[2020-11-16] MEDS: PANTOPRAZOLE 40 MG TABLET. PO SCH (07:49)
[2020-11-16] MEDS: LACTOBACILLUS RHAMNOSUS GG 1 CAPSULE. PO SCH ×2 (07:49→20:05)
[2020-11-16] MEDS: QUEtiapine 50 MG TABLET. PO SCH (07:49)
[2020-11-16] MEDS: FENOFIBRATE NANOCRYSTALLIZED 145 MG TABLET PO SCH (07:49)
[2020-11-16] MEDS: carBAMazepine 100 MG TAB.CHEW PO SCH (07:49)
[2020-11-16] MEDS: QUEtiapine 100 MG TABLET. PO SCH ×3 (07:49→20:06)
[2020-11-16] MEDS: POLYETHYLENE GLYCOL 3350 17 GM PACKET. PO SCH (07:49)
[2020-11-16] MEDS: INSULIN LISPRO 300 UNITS/3 ML VIAL. SQ SCH ×3 (07:58→17:00)
--- NOTE | 2020-11-16 09:24 | NUR ---
Patient in room eating breakfast at time of assessment. Patient is pleasant and calm and takes medications whole with no problems. Patient has no complaints today. Patient is alert but confused and forgetful. She does yell out at times but I find it is when she is bored or needs something. No further concerns or complaints.
[2020-11-16] MEDS: QUEtiapine 25 MG TABLET. PO SCH ×2 (12:23→17:00)
--- NOTE | 2020-11-16 12:30 | NUR ---
ANJU faxed over updates to the SW at [facility]. ANJU will reach out on after treatment team to give them updates about pt discharge plans.
--- NOTE | 2020-11-16 14:16 | NUR ---
Patient is continually yelling out and screaming she needs help with her stuff. She was putting her shoes and water bottle, brisa wellington in the trash bag from her room stating she needs to get her stuff together to leave on the . We talked about the date today and how long it will still be before she leaves. I took her belongings out of the trash and put them a clean paper bag and told her we were washing her clothes for her to [place] into tomorrow after her shower. She still continued to yell out, knocking on the window and then demanding to call Ricky . She just continues to go on and on. I finally got her to go to her room and she was given a zyprexa. We will monitor patient to see how she responds to the zyprexa.
[2020-11-16 15:29] VITALS: BP 119/71
--- NOTE | 2020-11-16 17:16 | NUR ---
Spoke to Dr Marvin and he would like to increase LUvox to 100 after 3 doses. Patient took for 3 days yesterday so we will increase to 100 tonight. Order placed
--- NOTE | 2020-11-16 17:18 | NUR ---
Patient continues to yell out uncontrollably another dose of Zyprexa given to patient.
[2020-11-16] MEDS: traZODone 100 MG TABLET. PO SCH (20:05)
[2020-11-16] MEDS: carBAMazepine 200 MG TABLET PO SCH (20:06)
[2020-11-16] MEDS: MELATONIN 3 MG TABLET PO SCH (20:06)
--- NOTE | 2020-11-16 21:00 | PDOC ---
Exam Note: Marcelo Note: Please also refer to the separate dictated note~for this date of service dictated separately.~Patient seen individually. Discussed the patient with Nursing staff reviewed the chart.~Reviewed interim history and current functioning. Reviewed vital signs,~Labs/ Radiology~and current medications noted below. Continue current treatment with the changes noted in the dictated addendum note Assessment: Vital Signs/I&O: Vital Signs Date Time Temp Pulse Resp B/P (MAP) Pulse Ox O2 Delivery O2 Flow Rate FiO2 11/16/20 15:29 97.4 81 16 119/71 (87) 97 11/16/20 06:38 Room Air I & O 11/15/20 11/15/20 11/16/20 15:00 23:00 07:00 Intake Total 240 ml 360 ml Balance 240 ml 360 ml Labs: Laboratory Tests Test 11/16/20 07:48 11/16/20 11:33 11/16/20 16:54 11/16/20 19:09 Glucose (Fingerstick) 138 mg/dL (70-99) H 233 mg/dL (70-99) H 290 mg/dL (70-99) H 299 mg/dL (70-99) H Current Medications: Meds: Laboratory Tests Test 11/16/20 07:48 11/16/20 11:33 11/16/20 16:54 11/16/20 19:09 Glucose (Fingerstick) 138 mg/dL 233 mg/dL 290 mg/dL 299 mg/dL Current Medications Medications (Trade) Dose Ordered Sig/Carmina Route PRN Reason Start Time Stop Time Status Last Admin Dose Admin Acetaminophen (Tylenol) 650 mg PRN Q6HRS PRN PO MILD PAIN / TEMP > 100.3'F 11/03/20 23:15 Cancel Multi-Ingredient Ointment (Analgesic [place]) 1 estrellita PRN QID PRN TP MUSCLE PAIN 11/03/20 23:15 Al Hydroxide/Mg Hydroxide (Mylanta Plus Xs) 15 ml PRN AFTMEALHC PRN PO DYSPEPSIA 11/03/20 23:15 Magnesium Hydroxide (Milk Of Magnesia) 2,400 mg PRN QHS PRN PO CONSTIPATION 11/03/20 23:15 Levothyroxine Sodium (Synthroid) 25 mcg DAILY06 PO 11/04/20 06:00 11/16/20 05:36 Pantoprazole Sodium (Protonix) 40 mg DAILYAC PO 11/04/20 07:30 11/16/20 07:49 Acetaminophen (Tylenol) 650 mg PRN Q4HRS PRN PO PAIN 11/04/20 00:45 Aspirin (Aspirin Chewable) 81 mg DAILYWBKFT PO 11/04/20 08:00 11/16/20 07:49 Hydroxyzine Pamoate (Vistaril) 25 mg PRN Q6HRS PRN PO agitation/anxiety 11/04/20 00:45 11/15/20 19:39 Melatonin (Melatonin) 3 mg HS PO 11/04/20 21:00 11/16/20 20:06 Nystatin (Nystop) 1 estrellita PRN BID PRN TP RASH 11/04/20 00:45 Polyethylene Glycol (miraLAX) 17 gm DAILY PO 11/04/20 09:00 11/16/20 07:49 Quetiapine Fumarate (SEROquel) 25 mg BID PO 11/04/20 09:00 11/15/20 21:52 DC 11/15/20 19:38 Quetiapine Fumarate (SEROquel) 100 mg TID PO 11/04/20 09:00 11/16/20 20:06 Trazodone HCl (Desyrel) 100 mg HS PO 11/04/20 21:00 11/16/20 20:05 Non-Formulary Medication (Ergocalciferol (Vitamin D2) (Vitamin D2)) 1,250 mcg WEEKLY PO 11/04/20 09:00 11/04/20 15:01 DC Citalopram Hydrobromide (CeleXA) 40 mg DAILY PO 11/04/20 09:00 11/05/20 18:18 DC 11/05/20 08:22 Fenofibrate (Tricor) 145 mg DAILY PO 11/04/20 09:00 11/16/20 07:49 Non-Formulary Medication (Guanfacine Hcl ) 1 tab BID PO 11/04/20 09:00 11/08/20 18:18 DC Non-Formulary Medication (Insulin Aspart (Novolog)) 9 unit TIDWMEALS SQ 11/04/20 08:00 UNV Non-Formulary Medication (Insulin Glargine,Hum.rec.anlog (Lantus Solostar)) 20 unit QHS SQ 11/04/20 21:00 UNV Non-Formulary Medication (Menthol/Zinc Oxide (Calmoseptine Ointment)) 71 gm BID TP 11/04/20 09:00 11/04/20 14:56 DC Insulin Glargine (Lantus Syringe) 20 unit QHS SQ 11/04/20 21:00 11/15/20 20:48 Insulin Human Lispro (HumaLOG) 9 units TIDWMEALS SQ 11/04/20 08:00 11/16/20 17:00 Vitamin D (Vitamin D3) 50,000 unit WEEKLY PO 11/05/20 09:00 11/12/20 08:59 Diphenhydramine HCl (Benadryl) 50 mg PRN Q6HRS PRN PO RASH 11/05/20 11:30 11/06/20 22:51 Oxcarbazepine (Trileptal) 300 mg BID PO 11/05/20 21:00 11/07/20 16:24 DC 11/07/20 09:08 Fluvoxamine Maleate (Luvox) 50 mg QHS PO 11/05/20 21:00 11/13/20 17:24 DC 11/12/20 19:30 Levofloxacin (Levaquin) 250 mg DAILY06 PO 11/06/20 16:00 11/10/20 06:01 DC 11/10/20 05:30 Lactobacillus Rhamnosus (Culturelle) 1 cap BID PO 11/07/20 21:00 11/16/20 20:05 Olanzapine (ZyPREXA ZYDIS) 5 mg PRN Q2HR PRN PO PSYCHOSIS 11/08/20 17:00 11/16/20 17:11 Carbamazepine (TEGretol) 200 mg QHS PO 11/08/20 21:00 11/16/20 20:06 Carbamazepine (TEGretol) 100 mg DAILY PO 11/12/20 09:00 11/16/20 07:49 Fluvoxamine Maleate (Luvox) 75 mg QHS PO 11/13/20 21:00 11/16/20 17:16 DC 11/15/20 19:38 Quetiapine Fumarate (SEROquel) 50 mg DAILY PO 11/16/20 09:00 11/16/20 07:49 Quetiapine Fumarate (SEROquel) 25 mg BID@1300,1700 PO 11/16/20 13:00 11/16/20 17:00 Fluvoxamine Maleate (Luvox) 100 mg QHS PO 11/16/20 21:00 11/16/20 20:06 Current Medications Medications (Trade) Dose Ordered Sig/Carmina Route PRN Reason Start Time Stop Time Status Last Admin Dose Admin Quetiapine Fumarate (SEROquel) 50 mg DAILY PO 11/16/20 09:00 11/16/20 07:49 Quetiapine Fumarate (SEROquel) 25 mg BID@1300,1700 PO 11/16/20 13:00 11/16/20 17:00 Fluvoxamine Maleate (Luvox) 100 mg QHS PO 11/16/20 21:00 11/16/20 20:06 I have reviewed the current psychotropics carefully including drug interactions. Risk benefit ratio favors no change other than as noted in my dictated progress note. Diagnosis: Problems: (1) Obsessive compulsive disorder (2) Impulse control disorder (3) Intellectual disability (4) Bipolar affective, mixed, sev w/ psych (5) Anxiety disorder, unspecified IDA LAINEZ MD Nov 16, 2020 20:59
[2020-11-16] MEDS: INSULIN GLARGINE SYRINGE. SQ SCH (21:18)
--- NOTE | 2020-11-16 23:57 | NUR ---
This evening pt was frequently at [facility] nursing station yelling at staff and demanding to call Ricky. Redirection attempts only lasted a short time. Other times she would sit in her room yelling a repetitive phrase such as "call Ricky" for a prolonged time. After taking her meds without difficulty she settled down, spoke with Ricky, and went to sleep
[2020-11-17] MEDS: LEVOTHYROXINE 25 MCG TABLET. PO SCH (05:44)
[2020-11-17 06:22] VITALS: BP 146/81
[2020-11-17] MEDS: carBAMazepine 100 MG TAB.CHEW PO SCH (07:32)
[2020-11-17] MEDS: QUEtiapine 100 MG TABLET. PO SCH ×3 (07:32→20:32)
[2020-11-17] MEDS: PANTOPRAZOLE 40 MG TABLET. PO SCH (07:32)
[2020-11-17] MEDS: QUEtiapine 50 MG TABLET. PO SCH (07:32)
[2020-11-17] MEDS: LACTOBACILLUS RHAMNOSUS GG 1 CAPSULE. PO SCH ×2 (07:32→20:32)
[2020-11-17] MEDS: diphenhydrAMINE HCL 25 MG CAPSULE PO PRN ×2 (07:32→17:46)
[2020-11-17] MEDS: ASPIRIN CHEWABLE 81 MG TABLET. PO SCH (07:32)
[2020-11-17] MEDS: POLYETHYLENE GLYCOL 3350 17 GM PACKET. PO SCH (07:32)
[2020-11-17] MEDS: FENOFIBRATE NANOCRYSTALLIZED 145 MG TABLET PO SCH (07:32)
[2020-11-17] MEDS: INSULIN LISPRO 300 UNITS/3 ML VIAL. SQ SCH ×3 (07:33→17:46)
--- NOTE | 2020-11-17 08:41 | NUR ---
PT IS AMBULATING IN HALLWAY AT TIME OF SHIFT CHANGE. PT STOPPED AT NURSES STATION AND IS REQUESTING MORE GATORADE. PT HAS A BOTTLE OF GATORADE IN HER HAND AND IS TOLD SHE CAN HAVE MORE ONCE SHE FINISHES WHAT SHE ALREADY HAS IN HER HAND. PATIENT IS IRRITABLE AND STARTS SAYING OVER AND OVER "I WANT MORE". PATIENT IS ASKED TO RETURN TO ROOM NURSES ARE IN SHIFT REPORT. PT RETURNED TO ROOM AND IS YELLING "HELLO" OVER AND OVER AGAIN. PT THEN RETURNED TO NURSES STATION ASKING NURSING STAFF IF SHE CAN CALL MICHEL. PT INFORMED THAT SHE CAN CALL MICHEL AFTER BREAKFAST. PT PROCEEDS TO ASK IF SHE CAN CALL MICHEL OVER AND OVER AGAIN. PRN ZYPREXA, GIVEN WILL CONTINUE TO MONITOR.
--- NOTE | 2020-11-17 08:46 | PDOC ---
Exam Note: Marcelo Note: This note is a late entry for 11/15/2020 covers elements not covered in my initial note. Subjective: The patient was seen face to face in the evening of 11/15/2020 with Malaika HOLLINGSWORTH. Discussed with nursing staff, reviewed the chart. The patient slept 7-1/4 hours previous night. She has had a very difficult day in the evening. She has been yelling, repetitive, obsessive, constantly asking me repeatedly if she can go home tomorrow. As before there is nothing that can be said to make her change this pattern. Earlier in the day she did well as she was watching a movie on [employer] and was able to follow along with this. Review of Systems: No CV, , pulmonary, eye, ENT system symptoms on review. Mental Status Exam: The patient is oriented to herself and situation. She followed me around the unit even after I met with her on rounds obsessively asking about discharge plans in a typical rhythmic pattern. Speech is coherent, rapid, at times. Abstraction is fair. Computation is impaired. Language function intact. Attention span is short. Mood and affect remains somewhat labile. No active psychotic symptoms. Laboratory Data: Reviewed. Impression: Bipolar 1 disorder mixed with psychotic features. OCD. Anxiety disorder unspecified. Impulse control disorder unspecified. Plan: Continue psychotropics from initial note. She is currently on Seroquel 100 mg t.i.d. and 25 mg b.i.d. We will change the 25 mg b.i.d. to 50 mg at 9 a.m. and 25 mg at 1p.m. and 25 mg at 5 p.m. Continue hydroxyzine, trazodone, Luvox 75 mg h.s. We may need to increase this. Maintain melatonin 3 mg h.s., Tegretol 100 mg a.m. and 200 mg h.s., level therapeutic at 10.1, Zyprexa p.r.n. Assessment: Vital Signs/I&O: Vital Signs Date Time Temp Pulse Resp B/P (MAP) Pulse Ox O2 Delivery O2 Flow Rate FiO2 11/17/20 06:22 97.6 81 20 146/81 (102) 96 Room Air I & O 11/16/20 11/16/20 11/17/20 15:00 23:00 07:00 Intake Total 720 ml 480 ml Balance 720 ml 480 ml Labs: Laboratory Tests Test 11/16/20 11:33 11/16/20 16:54 11/16/20 19:09 11/17/20 07:27 Glucose (Fingerstick) 233 mg/dL (70-99) H 290 mg/dL (70-99) H 299 mg/dL (70-99) H 277 mg/dL (70-99) H Current Medications: Meds: Laboratory Tests Test 11/16/20 11:33 11/16/20 16:54 11/16/20 19:09 11/17/20 07:27 Glucose (Fingerstick) 233 mg/dL 290 mg/dL 299 mg/dL 277 mg/dL Current Medications Medications (Trade) Dose Ordered Sig/Carmina Route PRN Reason Start Time Stop Time Status Last Admin Dose Admin Acetaminophen (Tylenol) 650 mg PRN Q6HRS PRN PO MILD PAIN / TEMP > 100.3'F 11/03/20 23:15 Cancel Multi-Ingredient Ointment (Analgesic [place]) 1 estrellita PRN QID PRN TP MUSCLE PAIN 11/03/20 23:15 Al Hydroxide/Mg Hydroxide (Mylanta Plus Xs) 15 ml PRN AFTMEALHC PRN PO DYSPEPSIA 11/03/20 23:15 Magnesium Hydroxide (Milk Of Magnesia) 2,400 mg PRN QHS PRN PO CONSTIPATION 11/03/20 23:15 Levothyroxine Sodium (Synthroid) 25 mcg DAILY06 PO 11/04/20 06:00 11/17/20 05:44 Pantoprazole Sodium (Protonix) 40 mg DAILYAC PO 11/04/20 07:30 11/17/20 07:32 Acetaminophen (Tylenol) 650 mg PRN Q4HRS PRN PO PAIN 11/04/20 00:45 Aspirin (Aspirin Chewable) 81 mg DAILYWBKFT PO 11/04/20 08:00 11/17/20 07:32 Hydroxyzine Pamoate (Vistaril) 25 mg PRN Q6HRS PRN PO agitation/anxiety 11/04/20 00:45 11/15/20 19:39 Melatonin (Melatonin) 3 mg HS PO 11/04/20 21:00 11/16/20 20:06 Nystatin (Nystop) 1 estrellita PRN BID PRN TP RASH 11/04/20 00:45 Polyethylene Glycol (miraLAX) 17 gm DAILY PO 11/04/20 09:00 11/17/20 07:32 Quetiapine Fumarate (SEROquel) 25 mg BID PO 11/04/20 09:00 11/15/20 21:52 DC 11/15/20 19:38 Quetiapine Fumarate (SEROquel) 100 mg TID PO 11/04/20 09:00 11/17/20 07:32 Trazodone HCl (Desyrel) 100 mg HS PO 11/04/20 21:00 11/16/20 20:05 Non-Formulary Medication (Ergocalciferol (Vitamin D2) (Vitamin D2)) 1,250 mcg WEEKLY PO 11/04/20 09:00 11/04/20 15:01 DC Citalopram Hydrobromide (CeleXA) 40 mg DAILY PO 11/04/20 09:00 11/05/20 18:18 DC 11/05/20 08:22 Fenofibrate (Tricor) 145 mg DAILY PO 11/04/20 09:00 11/17/20 07:32 Non-Formulary Medication (Guanfacine Hcl ) 1 tab BID PO 11/04/20 09:00 11/08/20 18:18 DC Non-Formulary Medication (Insulin Aspart (Novolog)) 9 unit TIDWMEALS SQ 11/04/20 08:00 UNV Non-Formulary Medication (Insulin Glargine,Hum.rec.anlog (Lantus Solostar)) 20 unit QHS SQ 11/04/20 21:00 UNV Non-Formulary Medication (Menthol/Zinc Oxide (Calmoseptine Ointment)) 71 gm BID TP 11/04/20 09:00 11/04/20 14:56 DC Insulin Glargine (Lantus Syringe) 20 unit QHS SQ 11/04/20 21:00 11/16/20 21:18 Insulin Human Lispro (HumaLOG) 9 units TIDWMEALS SQ 11/04/20 08:00 11/17/20 07:33 Vitamin D (Vitamin D3) 50,000 unit WEEKLY PO 11/05/20 09:00 11/12/20 08:59 Diphenhydramine HCl (Benadryl) 50 mg PRN Q6HRS PRN PO RASH 11/05/20 11:30 11/17/20 07:32 Oxcarbazepine (Trileptal) 300 mg BID PO 11/05/20 21:00 11/07/20 16:24 DC 11/07/20 09:08 Fluvoxamine Maleate (Luvox) 50 mg QHS PO 11/05/20 21:00 11/13/20 17:24 DC 11/12/20 19:30 Levofloxacin (Levaquin) 250 mg DAILY06 PO 11/06/20 16:00 11/10/20 06:01 DC 11/10/20 05:30 Lactobacillus Rhamnosus (Culturelle) 1 cap BID PO 11/07/20 21:00 11/17/20 07:32 Olanzapine (ZyPREXA ZYDIS) 5 mg PRN Q2HR PRN PO PSYCHOSIS 11/08/20 17:00 11/17/20 07:32 Carbamazepine (TEGretol) 200 mg QHS PO 11/08/20 21:00 11/16/20 20:06 Carbamazepine (TEGretol) 100 mg DAILY PO 11/12/20 09:00 11/17/20 07:32 Fluvoxamine Maleate (Luvox) 75 mg QHS PO 11/13/20 21:00 11/16/20 17:16 DC 11/15/20 19:38 Quetiapine Fumarate (SEROquel) 50 mg DAILY PO 11/16/20 09:00 11/17/20 07:32 Quetiapine Fumarate (SEROquel) 25 mg BID@1300,1700 PO 11/16/20 13:00 11/16/20 17:00 Fluvoxamine Maleate (Luvox) 100 mg QHS PO 11/16/20 21:00 11/16/20 20:06 Current Medications Medications (Trade) Dose Ordered Sig/Carmina Route PRN Reason Start Time Stop Time Status Last Admin Dose Admin Quetiapine Fumarate (SEROquel) 50 mg DAILY PO 11/16/20 09:00 11/17/20 07:32 Quetiapine Fumarate (SEROquel) 25 mg BID@1300,1700 PO 11/16/20 13:00 11/16/20 17:00 Fluvoxamine Maleate (Luvox) 100 mg QHS PO 11/16/20 21:00 11/16/20 20:06 I have reviewed the current psychotropics carefully including drug interactions. Risk benefit ratio favors no change other than as noted in my dictated progress note. Diagnosis: Problems: (1) Obsessive compulsive disorder (2) Impulse control disorder (3) Intellectual disability (4) Anxiety disorder, unspecified (5) Bipolar affective, mixed, sev w/ psych IDA LAINEZ MD Nov 17, 2020 08:46
--- NOTE | 2020-11-17 09:14 | PDOC ---
Exam Note: Marcelo Note: This note is a late entry for 11/16/2020 covers elements not covered in my initial note. Subjective: The patient was seen face to face in the evening of 11/16/2020 with Janice HOLLINGSWORTH. Discussed with nursing staff, reviewed the chart. The patient slept 6- 1/2 hours previous night. She has had a difficult day. She has been anxious, restless, yelling constantly. Received Zyprexa p.r.n. Later in the day she was better. In the evening when I met with her she was extremely obsessive about discharge plans following me around the unit. Review of Systems: No CV, , pulmonary, eye, ENT system symptoms on review. Mental Status Exam: The patient is oriented to herself and situation. Speech is coherent, rapid, at times, repetitive. Abstraction is fair. Computation is impaired. Language function intact. Mood and affect labile. Laboratory Data: Reviewed. Impression: Bipolar 1 disorder mixed with psychotic features. OCD. Anxiety disorder unspecified. Impulse control disorder unspecified. Plan: Given her marked OCD symptoms, we will increase the Luvox from 75 mg a day to 100 mg a day. Continue rest of the psychotropics from initial note. Assessment: Vital Signs/I&O: Vital Signs Date Time Temp Pulse Resp B/P (MAP) Pulse Ox O2 Delivery O2 Flow Rate FiO2 11/17/20 06:22 97.6 81 20 146/81 (102) 96 Room Air I & O 11/16/20 11/16/20 11/17/20 15:00 23:00 07:00 Intake Total 720 ml 480 ml Balance 720 ml 480 ml Labs: Laboratory Tests Test 11/16/20 11:33 11/16/20 16:54 11/16/20 19:09 11/17/20 07:27 Glucose (Fingerstick) 233 mg/dL (70-99) H 290 mg/dL (70-99) H 299 mg/dL (70-99) H 277 mg/dL (70-99) H Current Medications: Meds: Laboratory Tests Test 11/16/20 11:33 11/16/20 16:54 11/16/20 19:09 11/17/20 07:27 Glucose (Fingerstick) 233 mg/dL 290 mg/dL 299 mg/dL 277 mg/dL Current Medications Medications (Trade) Dose Ordered Sig/Carmina Route PRN Reason Start Time Stop Time Status Last Admin Dose Admin Acetaminophen (Tylenol) 650 mg PRN Q6HRS PRN PO MILD PAIN / TEMP > 100.3'F 11/03/20 23:15 Cancel Multi-Ingredient Ointment (Analgesic [place]) 1 estrellita PRN QID PRN TP MUSCLE PAIN 11/03/20 23:15 Al Hydroxide/Mg Hydroxide (Mylanta Plus Xs) 15 ml PRN AFTMEALHC PRN PO DYSPEPSIA 11/03/20 23:15 Magnesium Hydroxide (Milk Of Magnesia) 2,400 mg PRN QHS PRN PO CONSTIPATION 11/03/20 23:15 Levothyroxine Sodium (Synthroid) 25 mcg DAILY06 PO 11/04/20 06:00 11/17/20 05:44 Pantoprazole Sodium (Protonix) 40 mg DAILYAC PO 11/04/20 07:30 11/17/20 07:32 Acetaminophen (Tylenol) 650 mg PRN Q4HRS PRN PO PAIN 11/04/20 00:45 Aspirin (Aspirin Chewable) 81 mg DAILYWBKFT PO 11/04/20 08:00 11/17/20 07:32 Hydroxyzine Pamoate (Vistaril) 25 mg PRN Q6HRS PRN PO agitation/anxiety 11/04/20 00:45 11/15/20 19:39 Melatonin (Melatonin) 3 mg HS PO 11/04/20 21:00 11/16/20 20:06 Nystatin (Nystop) 1 estrellita PRN BID PRN TP RASH 11/04/20 00:45 Polyethylene Glycol (miraLAX) 17 gm DAILY PO 11/04/20 09:00 11/17/20 07:32 Quetiapine Fumarate (SEROquel) 25 mg BID PO 11/04/20 09:00 11/15/20 21:52 DC 11/15/20 19:38 Quetiapine Fumarate (SEROquel) 100 mg TID PO 11/04/20 09:00 11/17/20 07:32 Trazodone HCl (Desyrel) 100 mg HS PO 11/04/20 21:00 11/16/20 20:05 Non-Formulary Medication (Ergocalciferol (Vitamin D2) (Vitamin D2)) 1,250 mcg WEEKLY PO 11/04/20 09:00 11/04/20 15:01 DC Citalopram Hydrobromide (CeleXA) 40 mg DAILY PO 11/04/20 09:00 11/05/20 18:18 DC 11/05/20 08:22 Fenofibrate (Tricor) 145 mg DAILY PO 11/04/20 09:00 11/17/20 07:32 Non-Formulary Medication (Guanfacine Hcl ) 1 tab BID PO 11/04/20 09:00 11/08/20 18:18 DC Non-Formulary Medication (Insulin Aspart (Novolog)) 9 unit TIDWMEALS SQ 11/04/20 08:00 UNV Non-Formulary Medication (Insulin Glargine,Hum.rec.anlog (Lantus Solostar)) 20 unit QHS SQ 11/04/20 21:00 UNV Non-Formulary Medication (Menthol/Zinc Oxide (Calmoseptine Ointment)) 71 gm BID TP 11/04/20 09:00 11/04/20 14:56 DC Insulin Glargine (Lantus Syringe) 20 unit QHS SQ 11/04/20 21:00 11/16/20 21:18 Insulin Human Lispro (HumaLOG) 9 units TIDWMEALS SQ 11/04/20 08:00 11/17/20 07:33 Vitamin D (Vitamin D3) 50,000 unit WEEKLY PO 11/05/20 09:00 11/12/20 08:59 Diphenhydramine HCl (Benadryl) 50 mg PRN Q6HRS PRN PO RASH 11/05/20 11:30 11/17/20 07:32 Oxcarbazepine (Trileptal) 300 mg BID PO 11/05/20 21:00 11/07/20 16:24 DC 11/07/20 09:08 Fluvoxamine Maleate (Luvox) 50 mg QHS PO 11/05/20 21:00 11/13/20 17:24 DC 11/12/20 19:30 Levofloxacin (Levaquin) 250 mg DAILY06 PO 11/06/20 16:00 11/10/20 06:01 DC 11/10/20 05:30 Lactobacillus Rhamnosus (Culturelle) 1 cap BID PO 11/07/20 21:00 11/17/20 07:32 Olanzapine (ZyPREXA ZYDIS) 5 mg PRN Q2HR PRN PO PSYCHOSIS 11/08/20 17:00 11/17/20 07:32 Carbamazepine (TEGretol) 200 mg QHS PO 11/08/20 21:00 11/16/20 20:06 Carbamazepine (TEGretol) 100 mg DAILY PO 11/12/20 09:00 11/17/20 07:32 Fluvoxamine Maleate (Luvox) 75 mg QHS PO 11/13/20 21:00 11/16/20 17:16 DC 11/15/20 19:38 Quetiapine Fumarate (SEROquel) 50 mg DAILY PO 11/16/20 09:00 11/17/20 07:32 Quetiapine Fumarate (SEROquel) 25 mg BID@1300,1700 PO 11/16/20 13:00 11/16/20 17:00 Fluvoxamine Maleate (Luvox) 100 mg QHS PO 11/16/20 21:00 11/16/20 20:06 Current Medications Medications (Trade) Dose Ordered Sig/Carmina Route PRN Reason Start Time Stop Time Status Last Admin Dose Admin Quetiapine Fumarate (SEROquel) 25 mg BID@1300,1700 PO 11/16/20 13:00 11/16/20 17:00 Fluvoxamine Maleate (Luvox) 100 mg QHS PO 11/16/20 21:00 11/16/20 20:06 I have reviewed the current psychotropics carefully including drug interactions. Risk benefit ratio favors no change other than as noted in my dictated progress note. Diagnosis: Problems: (1) Obsessive compulsive disorder (2) Impulse control disorder (3) Intellectual disability (4) Anxiety disorder, unspecified (5) Bipolar affective, mixed, sev w/ psych IDA LAINEZ MD Nov 17, 2020 09:14
[2020-11-17] MEDS: QUEtiapine 25 MG TABLET. PO SCH ×2 (12:05→17:46)
--- NOTE | 2020-11-17 14:38 | NUR ---
PT IN DAY ROOM PARTICIPATING IN GROUP. PT HAS LESS YELLING OUT ON THIS SHIFT. PT IS ALSO LESS OBSESSIVE OVER PHONE CALL TO "MICHEL".
--- NOTE | 2020-11-17 14:58 | NUR ---
ANJU received call from Ricky, who wanted to check in with on how pt is doing. Savanna is concerned about the multiple "inconsistent" reports she receives from nursing. ANJU explained to Ricky that she has to understand that pt does well to an extent but there are times during the day that she has behaviors. Ricky and ANJU agreed that there are some things are personality for pt and other things are behaviors; with the understanding that medications are not going to change personality. But getting her behaviors settled before sending pt back to [facility] is the goal. Ricky wants to make sure she participates in tx team tomorrow. ANJU informed Ricky that there are 14 people to team and could not ensure of a time. ANJU was asked to try her cell phone first.
[2020-11-17 16:06] VITALS: BP 119/66
[2020-11-17] MEDS: MELATONIN 3 MG TABLET PO SCH (20:32)
[2020-11-17] MEDS: traZODone 100 MG TABLET. PO SCH (20:32)
[2020-11-17] MEDS: carBAMazepine 200 MG TABLET PO SCH (20:32)
[2020-11-17] MEDS: hydrOXYzine PAMOATE 25 MG CAPSULE PO PRN (20:32)
[2020-11-17] MEDS: INSULIN GLARGINE SYRINGE. SQ SCH (20:46)
--- NOTE | 2020-11-17 21:00 | PDOC ---
Exam Note: Marcelo Note: Please also refer to the separate dictated note~for this date of service dictated separately.~Patient seen individually. Discussed the patient with Nursing staff reviewed the chart.~Reviewed interim history and current functioning. Reviewed vital signs,~Labs/ Radiology~and current medications noted below. Continue current treatment with the changes noted in the dictated addendum note Assessment: Vital Signs/I&O: Vital Signs Date Time Temp Pulse Resp B/P (MAP) Pulse Ox O2 Delivery O2 Flow Rate FiO2 11/17/20 16:06 97.9 85 18 119/66 (83) 94 11/17/20 06:22 Room Air I & O 11/16/20 11/16/20 11/17/20 15:00 23:00 07:00 Intake Total 720 ml 480 ml Balance 720 ml 480 ml Labs: Laboratory Tests Test 11/17/20 07:27 11/17/20 12:00 11/17/20 16:57 11/17/20 19:10 Glucose (Fingerstick) 277 mg/dL (70-99) H 245 mg/dL (70-99) H 261 mg/dL (70-99) H 275 mg/dL (70-99) H Current Medications: Meds: Laboratory Tests Test 11/17/20 07:27 11/17/20 12:00 11/17/20 16:57 11/17/20 19:10 Glucose (Fingerstick) 277 mg/dL 245 mg/dL 261 mg/dL 275 mg/dL Current Medications Medications (Trade) Dose Ordered Sig/Carmina Route PRN Reason Start Time Stop Time Status Last Admin Dose Admin Acetaminophen (Tylenol) 650 mg PRN Q6HRS PRN PO MILD PAIN / TEMP > 100.3'F 11/03/20 23:15 Cancel Multi-Ingredient Ointment (Analgesic [employer]) 1 estrellita PRN QID PRN TP MUSCLE PAIN 11/03/20 23:15 Al Hydroxide/Mg Hydroxide (Mylanta Plus Xs) 15 ml PRN AFTMEALHC PRN PO DYSPEPSIA 11/03/20 23:15 Magnesium Hydroxide (Milk Of Magnesia) 2,400 mg PRN QHS PRN PO CONSTIPATION 11/03/20 23:15 Levothyroxine Sodium (Synthroid) 25 mcg DAILY06 PO 11/04/20 06:00 11/17/20 05:44 Pantoprazole Sodium (Protonix) 40 mg DAILYAC PO 11/04/20 07:30 11/17/20 07:32 Acetaminophen (Tylenol) 650 mg PRN Q4HRS PRN PO PAIN 11/04/20 00:45 Aspirin (Aspirin Chewable) 81 mg DAILYWBKFT PO 11/04/20 08:00 11/17/20 07:32 Hydroxyzine Pamoate (Vistaril) 25 mg PRN Q6HRS PRN PO agitation/anxiety 11/04/20 00:45 11/17/20 20:32 Melatonin (Melatonin) 3 mg HS PO 11/04/20 21:00 11/17/20 20:32 Nystatin (Nystop) 1 estrellita PRN BID PRN TP RASH 11/04/20 00:45 Polyethylene Glycol (miraLAX) 17 gm DAILY PO 11/04/20 09:00 11/17/20 07:32 Quetiapine Fumarate (SEROquel) 25 mg BID PO 11/04/20 09:00 11/15/20 21:52 DC 11/15/20 19:38 Quetiapine Fumarate (SEROquel) 100 mg TID PO 11/04/20 09:00 11/17/20 20:32 Trazodone HCl (Desyrel) 100 mg HS PO 11/04/20 21:00 11/17/20 20:32 Non-Formulary Medication (Ergocalciferol (Vitamin D2) (Vitamin D2)) 1,250 mcg WEEKLY PO 11/04/20 09:00 11/04/20 15:01 DC Citalopram Hydrobromide (CeleXA) 40 mg DAILY PO 11/04/20 09:00 11/05/20 18:18 DC 11/05/20 08:22 Fenofibrate (Tricor) 145 mg DAILY PO 11/04/20 09:00 11/17/20 07:32 Non-Formulary Medication (Guanfacine Hcl ) 1 tab BID PO 11/04/20 09:00 11/08/20 18:18 DC Non-Formulary Medication (Insulin Aspart (Novolog)) 9 unit TIDWMEALS SQ 11/04/20 08:00 UNV Non-Formulary Medication (Insulin Glargine,Hum.rec.anlog (Lantus Solostar)) 20 unit QHS SQ 11/04/20 21:00 UNV Non-Formulary Medication (Menthol/Zinc Oxide (Calmoseptine Ointment)) 71 gm BID TP 11/04/20 09:00 11/04/20 14:56 DC Insulin Glargine (Lantus Syringe) 20 unit QHS SQ 11/04/20 21:00 11/17/20 20:46 Insulin Human Lispro (HumaLOG) 9 units TIDWMEALS SQ 11/04/20 08:00 11/17/20 17:46 Vitamin D (Vitamin D3) 50,000 unit WEEKLY PO 11/05/20 09:00 11/12/20 08:59 Diphenhydramine HCl (Benadryl) 50 mg PRN Q6HRS PRN PO RASH 11/05/20 11:30 11/17/20 17:46 Oxcarbazepine (Trileptal) 300 mg BID PO 11/05/20 21:00 11/07/20 16:24 DC 11/07/20 09:08 Fluvoxamine Maleate (Luvox) 50 mg QHS PO 11/05/20 21:00 11/13/20 17:24 DC 11/12/20 19:30 Levofloxacin (Levaquin) 250 mg DAILY06 PO 11/06/20 16:00 11/10/20 06:01 DC 11/10/20 05:30 Lactobacillus Rhamnosus (Culturelle) 1 cap BID PO 11/07/20 21:00 11/17/20 20:32 Olanzapine (ZyPREXA ZYDIS) 5 mg PRN Q2HR PRN PO PSYCHOSIS 11/08/20 17:00 11/17/20 17:46 Carbamazepine (TEGretol) 200 mg QHS PO 11/08/20 21:00 11/17/20 20:32 Carbamazepine (TEGretol) 100 mg DAILY PO 11/12/20 09:00 11/17/20 07:32 Fluvoxamine Maleate (Luvox) 75 mg QHS PO 11/13/20 21:00 11/16/20 17:16 DC 11/15/20 19:38 Quetiapine Fumarate (SEROquel) 50 mg DAILY PO 11/16/20 09:00 11/17/20 07:32 Quetiapine Fumarate (SEROquel) 25 mg BID@1300,1700 PO 11/16/20 13:00 11/17/20 17:46 Fluvoxamine Maleate (Luvox) 100 mg QHS PO 11/16/20 21:00 11/17/20 20:32 Current Medications Medications (Trade) Dose Ordered Sig/Carmina Route PRN Reason Start Time Stop Time Status Last Admin Dose Admin Fluvoxamine Maleate (Luvox) 100 mg QHS PO 11/16/20 21:00 11/17/20 20:32 I have reviewed the current psychotropics carefully including drug interactions. Risk benefit ratio favors no change other than as noted in my dictated progress note. Diagnosis: Problems: (1) Obsessive compulsive disorder (2) Impulse control disorder (3) Intellectual disability (4) Anxiety disorder, unspecified (5) Bipolar affective, mixed, sev w/ psych IDA LAINEZ MD Nov 17, 2020 21:00
--- NOTE | 2020-11-17 22:52 | PN ---
DATE: 11/17/2020 PSYCHIATRIC PROGRESS NOTE This note covers elements not covered in my initial note of 11/17/2020. SUBJECTIVE: Per Ibis RN, the patient slept 6-1/2 hours previous night. She has done a little better today, less yelling, less obsessive, did get Zyprexa p.r.n. earlier. Tegretol level is 10.1. REVIEW OF SYSTEMS: She has vague somatic symptoms. No CV, , pulmonary, eye, ENT system symptoms on review. Very repetitive, wanting about to know about discharge date repeatedly, but no yelling. MENTAL STATUS EXAM: Oriented to herself and situation. Speech coherent, rapid at times. Abstraction fair, computation impaired, language function intact. Mood and affect remains less labile. LABORATORY DATA: Reviewed. IMPRESSION: Unchanged from initial note. PLAN: No change from initial note. We will continue to gradually increase Luvox as indicated. IDA LAINEZ MD DR: YO/bakari JOB#: [id number] / [id number]
--- NOTE | 2020-11-17 23:59 | NUR ---
Nursing Note Pt has a repetitive speech pattern, yells out "Hey, hey, hey....." non stop. Then will switch to "OK OK OK OK" later switches to an unintelligible grunt over and over. Interrupts nursing report 4 times to ask for the phone, with same repetitive speech saying "It's 7pm, It's 7pm..." over and over again. Informed patient to not interrupt report again, and to lower her volume. Pt yells back, "I'm not yelling, I'm not yelling!' over and over. Pacing the jhaveri attempting to enter peers rooms, yelling at peers that they had stolen her walker stating "That's mine, that's mine......" Very difficult to redirect pt. She is highly intrusive, loud and distracting to staff and peers. Pt continued to yell out at intervals, with varying words or phrases of a repetitive nature, informed her that I would be closing her door with one more word. She stated she promised she would be quiet. Exactly 3 minutes later, she begins to yell out, "Hey, hey, hey, hey...." I closed her door. Pt now resting, has awakened a time or 2 but quickly settled down. Med compliant and cooperative with assessment, blood sugar was 275 this pm. Hydroxyzine was given with HS meds for anxiety and agitation which was effective.
[2020-11-18] MEDS: LEVOTHYROXINE 25 MCG TABLET. PO SCH (05:14)
[2020-11-18 05:59] VITALS: BP 133/66
[2020-11-18] MEDS: INSULIN LISPRO 300 UNITS/3 ML VIAL. SQ SCH ×3 (08:00→17:00)
[2020-11-18] MEDS: PANTOPRAZOLE 40 MG TABLET. PO SCH (08:16)
[2020-11-18] MEDS: ASPIRIN CHEWABLE 81 MG TABLET. PO SCH (08:17)
[2020-11-18] MEDS: QUEtiapine 100 MG TABLET. PO SCH ×3 (08:17→19:46)
[2020-11-18] MEDS: QUEtiapine 50 MG TABLET. PO SCH (08:17)
[2020-11-18] MEDS: LACTOBACILLUS RHAMNOSUS GG 1 CAPSULE. PO SCH ×2 (08:17→19:47)
[2020-11-18] MEDS: FENOFIBRATE NANOCRYSTALLIZED 145 MG TABLET PO SCH (08:17)
[2020-11-18] MEDS: POLYETHYLENE GLYCOL 3350 17 GM PACKET. PO SCH (08:18)
[2020-11-18] MEDS: carBAMazepine 100 MG TAB.CHEW PO SCH (08:19)
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
--- NOTE | 2020-11-18 11:01 | NUR ---
Patient in room at time of assessment. She ordered extra biscuits and gravy. She ate all. Patient is cooperative and takes medications whole with no problems. Patient is alert but confused and forgetful. No further concerns or complaints at this time.
[2020-11-18] MEDS: MAG HYDROX/AL HYDROX/SIMETH 30 ML ORAL.SUSP PO PRN (12:54)
[2020-11-18] MEDS: QUEtiapine 25 MG TABLET. PO SCH ×2 (12:58→17:00)
[2020-11-18 15:59] VITALS: BP 126/74
[2020-11-18] MEDS: hydrOXYzine PAMOATE 25 MG CAPSULE PO PRN (19:46)
[2020-11-18] MEDS: carBAMazepine 200 MG TABLET PO SCH (19:46)
[2020-11-18] MEDS: traZODone 100 MG TABLET. PO SCH (19:47)
[2020-11-18] MEDS: MELATONIN 3 MG TABLET PO SCH (19:47)
[2020-11-18] MEDS: INSULIN GLARGINE SYRINGE. SQ SCH (20:56)
--- NOTE | 2020-11-18 21:07 | PDOC ---
Exam Note: Marcelo Note: Please also refer to the separate dictated note~for this date of service dictated separately.~Patient seen individually. Discussed the patient with Nursing staff reviewed the chart.~Reviewed interim history and current functioning. Reviewed vital signs,~Labs/ Radiology~and current medications noted below. Continue current treatment with the changes noted in the dictated addendum note Assessment: Vital Signs/I&O: Vital Signs Date Time Temp Pulse Resp B/P (MAP) Pulse Ox O2 Delivery O2 Flow Rate FiO2 11/18/20 15:59 97.5 84 16 126/74 (91) 94 11/17/20 06:22 Room Air I & O 11/17/20 11/17/20 11/18/20 15:00 23:00 07:00 Intake Total 600 ml 360 ml Balance 600 ml 360 ml Labs: Laboratory Tests Test 11/18/20 07:37 11/18/20 12:10 11/18/20 16:53 11/18/20 19:02 Glucose (Fingerstick) 168 mg/dL (70-99) H 299 mg/dL (70-99) H 354 mg/dL (70-99) H 291 mg/dL (70-99) H Current Medications: Meds: Laboratory Tests Test 11/18/20 07:37 11/18/20 12:10 11/18/20 16:53 11/18/20 19:02 Glucose (Fingerstick) 168 mg/dL 299 mg/dL 354 mg/dL 291 mg/dL Current Medications Medications (Trade) Dose Ordered Sig/Carmina Route PRN Reason Start Time Stop Time Status Last Admin Dose Admin Acetaminophen (Tylenol) 650 mg PRN Q6HRS PRN PO MILD PAIN / TEMP > 100.3'F 11/03/20 23:15 Cancel Multi-Ingredient Ointment (Analgesic [place]) 1 estrellita PRN QID PRN TP MUSCLE PAIN 11/03/20 23:15 Al Hydroxide/Mg Hydroxide (Mylanta Plus Xs) 15 ml PRN AFTMEALHC PRN PO DYSPEPSIA 11/03/20 23:15 11/18/20 12:54 Magnesium Hydroxide (Milk Of Magnesia) 2,400 mg PRN QHS PRN PO CONSTIPATION 11/03/20 23:15 Levothyroxine Sodium (Synthroid) 25 mcg DAILY06 PO 11/04/20 06:00 11/18/20 05:14 Pantoprazole Sodium (Protonix) 40 mg DAILYAC PO 11/04/20 07:30 11/18/20 08:16 Acetaminophen (Tylenol) 650 mg PRN Q4HRS PRN PO PAIN 11/04/20 00:45 Aspirin (Aspirin Chewable) 81 mg DAILYWBKFT PO 11/04/20 08:00 11/18/20 08:17 Hydroxyzine Pamoate (Vistaril) 25 mg PRN Q6HRS PRN PO agitation/anxiety 11/04/20 00:45 11/18/20 19:46 Melatonin (Melatonin) 3 mg HS PO 11/04/20 21:00 11/18/20 19:47 Nystatin (Nystop) 1 estrellita PRN BID PRN TP RASH 11/04/20 00:45 Polyethylene Glycol (miraLAX) 17 gm DAILY PO 11/04/20 09:00 11/18/20 08:18 Quetiapine Fumarate (SEROquel) 25 mg BID PO 11/04/20 09:00 11/15/20 21:52 DC 11/15/20 19:38 Quetiapine Fumarate (SEROquel) 100 mg TID PO 11/04/20 09:00 11/18/20 19:46 Trazodone HCl (Desyrel) 100 mg HS PO 11/04/20 21:00 11/18/20 19:47 Non-Formulary Medication (Ergocalciferol (Vitamin D2) (Vitamin D2)) 1,250 mcg WEEKLY PO 11/04/20 09:00 11/04/20 15:01 DC Citalopram Hydrobromide (CeleXA) 40 mg DAILY PO 11/04/20 09:00 11/05/20 18:18 DC 11/05/20 08:22 Fenofibrate (Tricor) 145 mg DAILY PO 11/04/20 09:00 11/18/20 08:17 Non-Formulary Medication (Guanfacine Hcl ) 1 tab BID PO 11/04/20 09:00 11/08/20 18:18 DC Non-Formulary Medication (Insulin Aspart (Novolog)) 9 unit TIDWMEALS SQ 11/04/20 08:00 UNV Non-Formulary Medication (Insulin Glargine,Hum.rec.anlog (Lantus Solostar)) 20 unit QHS SQ 11/04/20 21:00 UNV Non-Formulary Medication (Menthol/Zinc Oxide (Calmoseptine Ointment)) 71 gm BID TP 11/04/20 09:00 11/04/20 14:56 DC Insulin Glargine (Lantus Syringe) 20 unit QHS SQ 11/04/20 21:00 11/18/20 20:56 Insulin Human Lispro (HumaLOG) 9 units TIDWMEALS SQ 11/04/20 08:00 11/18/20 17:00 Vitamin D (Vitamin D3) 50,000 unit WEEKLY PO 11/05/20 09:00 11/12/20 08:59 Diphenhydramine HCl (Benadryl) 50 mg PRN Q6HRS PRN PO RASH 11/05/20 11:30 11/17/20 17:46 Oxcarbazepine (Trileptal) 300 mg BID PO 11/05/20 21:00 11/07/20 16:24 DC 11/07/20 09:08 Fluvoxamine Maleate (Luvox) 50 mg QHS PO 11/05/20 21:00 11/13/20 17:24 DC 11/12/20 19:30 Levofloxacin (Levaquin) 250 mg DAILY06 PO 11/06/20 16:00 11/10/20 06:01 DC 11/10/20 05:30 Lactobacillus Rhamnosus (Culturelle) 1 cap BID PO 11/07/20 21:00 11/18/20 19:47 Olanzapine (ZyPREXA ZYDIS) 5 mg PRN Q2HR PRN PO PSYCHOSIS 11/08/20 17:00 11/17/20 17:46 Carbamazepine (TEGretol) 200 mg QHS PO 11/08/20 21:00 11/18/20 19:46 Carbamazepine (TEGretol) 100 mg DAILY PO 11/12/20 09:00 11/18/20 08:19 Fluvoxamine Maleate (Luvox) 75 mg QHS PO 11/13/20 21:00 11/16/20 17:16 DC 11/15/20 19:38 Quetiapine Fumarate (SEROquel) 50 mg DAILY PO 11/16/20 09:00 11/18/20 08:17 Quetiapine Fumarate (SEROquel) 25 mg BID@1300,1700 PO 11/16/20 13:00 11/18/20 17:00 Fluvoxamine Maleate (Luvox) 100 mg QHS PO 11/16/20 21:00 11/18/20 19:47 I have reviewed the current psychotropics carefully including drug interactions. Risk benefit ratio favors no change other than as noted in my dictated progress note. Diagnosis: Problems: (1) Obsessive compulsive disorder (2) Impulse control disorder (3) Intellectual disability (4) Anxiety disorder, unspecified (5) Bipolar affective, mixed, sev w/ psych IDA LAINEZ MD Nov 18, 2020 21:07
--- NOTE | 2020-11-19 00:38 | NUR ---
Nursing Note Pt comes to desk during report X 2 asking for the phone, stating "It's 7 pm" over and over again. Then yells in her room very loudly, when I entered she only wanted her genaro restarted. Instructed her to stop being disruptive to tone down the volume. Pt denies yelling. Med compliant and cooperative.
[2020-11-19] MEDS: LACTOBACILLUS RHAMNOSUS GG 1 CAPSULE. PO SCH ×2 (05:47→19:54)
[2020-11-19] MEDS: FENOFIBRATE NANOCRYSTALLIZED 145 MG TABLET PO SCH (05:47)
[2020-11-19] MEDS: QUEtiapine 100 MG TABLET. PO SCH ×3 (05:47→19:54)
[2020-11-19] MEDS: PANTOPRAZOLE 40 MG TABLET. PO SCH (05:47)
[2020-11-19] MEDS: POLYETHYLENE GLYCOL 3350 17 GM PACKET. PO SCH (05:48)
[2020-11-19] MEDS: ASPIRIN CHEWABLE 81 MG TABLET. PO SCH (05:48)
[2020-11-19] MEDS: LEVOTHYROXINE 25 MCG TABLET. PO SCH (05:48)
[2020-11-19] MEDS: carBAMazepine 100 MG TAB.CHEW PO SCH (05:50)
[2020-11-19] MEDS: QUEtiapine 50 MG TABLET. PO SCH (05:50)
[2020-11-19] MEDS: CHOLECALCIFEROL (VITAMIN D3) 50,000 UNIT CAPSULE PO SCH (05:51)
[2020-11-19 06:19] VITALS: BP 152/82
--- NOTE | 2020-11-19 06:30 | NUR ---
Nursing Note Pt was in her room attempting to sit in her chair, backed up to the chair and slid down the the front of the chair and sat on the floor. Asked pt what happened she stated "I sat in the chair and missed a little bit, I'm ok I just sat down. " No injury VSS. Pt again stated, "Im ok I just wanted to sit in the chair." Soon after pt wandering the hallways telling peers to "Shut the fuck up!!" and "Shut your stupid mouth". Later was yelling out "Shut up!" over and over again. Pt difficult to redirect and denies saying anything to her peers.
[2020-11-19] MEDS: INSULIN LISPRO 300 UNITS/3 ML VIAL. SQ SCH ×3 (08:00→17:00)
[2020-11-19] MEDS: QUEtiapine 25 MG TABLET. PO SCH ×2 (12:24→17:00)
[2020-11-19 15:56] VITALS: BP 136/78
--- NOTE | 2020-11-19 16:08 | RAD ---
Examination: AP and lateral views of the cervical, thoracic and lumbar spines. COMPARISON: Pelvis and bilateral hip x-rays of 06/01/2018 INDICATION: Back pain. Report, patient is uncooperative. FINDINGS: AP and lateral views of the cervical spine show multilevel facet hypertrophic change and uncovertebra l spurring no fracture or malalignment is seen. Soft tissues show minimal nonspecific prominence of t he prevertebral soft tissues. No abnormal soft tissue gas or radiopaque foreign body. Frontal and lateral views of the thoracic spine show demineralization without fracture or aggressive bony lesions. Multilevel endplate osteophytic spurring is present. Soft tissues incidentally show car diomegaly and multiple mediastinal surgical clips suggesting previous heart surgery. There is mild ri ght diaphragmatic elevation. Frontal and lateral views of the lumbar spine show 5 lumbar type vertebrae with no listhesis or acute fracture. Bones are demineralized. The discs show multilevel narrowing, most conspicuous at L2-L3 an d at L4-L5. There is osteophytic spurring and sclerosis at the right L4 and L5 vertebrae. Sequelae joints and visualized hips are unremarkable. IMPRESSION: No acute findings in the x-ray series of the total spine from cervical spine through the lumbar spine . Correlate with the multilevel spinal degenerative changes present with patient's clinical history a nd exam findings. Electronically signed by: Eran Becerra MD (11/19/2020 4:05 PM) [id number]
--- NOTE | 2020-11-19 16:37 | NUR ---
Pt c/o back pain this am. Stated she feel on floor. Tylenol given. police shift commander reported Pt put self on floor from chair. Later in am pt called sister. Pt told sister she fell. Sister very upset. States pt never complains unless there is something wrong. sister insisted it was a fall although it was explained to her that it was intentional and was considered a behavior. Sister wanted xrays. Order received form Dr CALVO. Xrays negative. Pt later stated she fell in shower. Pt was assisted in shower by two staff, remained through whole shower. Has yelled out intermittently throughout day. Has been occasionally calling staff or peers names.
[2020-11-19] MEDS: MELATONIN 3 MG TABLET PO SCH (19:54)
[2020-11-19] MEDS: traZODone 100 MG TABLET. PO SCH (19:54)
[2020-11-19] MEDS: carBAMazepine 200 MG TABLET PO SCH (19:54)
[2020-11-19] MEDS: INSULIN GLARGINE SYRINGE. SQ SCH (19:56)
--- NOTE | 2020-11-19 20:53 | PDOC ---
Exam Note: Marcelo Note: Please also refer to the separate dictated note~for this date of service dictated separately.~Patient seen individually. Discussed the patient with Nursing staff reviewed the chart.~Reviewed interim history and current functioning. Reviewed vital signs,~Labs/ Radiology~and current medications noted below. Continue current treatment with the changes noted in the dictated addendum note Assessment: Vital Signs/I&O: Vital Signs Date Time Temp Pulse Resp B/P (MAP) Pulse Ox O2 Delivery O2 Flow Rate FiO2 11/19/20 15:56 97.2 72 20 136/78 (97) 99 11/17/20 06:22 Room Air I & O 11/18/20 11/18/20 11/19/20 15:00 23:00 07:00 Intake Total 1020 ml 360 ml Balance 1020 ml 360 ml Labs: Laboratory Tests Test 11/19/20 07:35 11/19/20 11:19 11/19/20 16:39 11/19/20 19:07 Glucose (Fingerstick) 310 mg/dL (70-99) H 250 mg/dL (70-99) H 177 mg/dL (70-99) H 290 mg/dL (70-99) H Current Medications: Meds: Laboratory Tests Test 11/19/20 07:35 11/19/20 11:19 11/19/20 16:39 11/19/20 19:07 Glucose (Fingerstick) 310 mg/dL 250 mg/dL 177 mg/dL 290 mg/dL Current Medications Medications (Trade) Dose Ordered Sig/Carmina Route PRN Reason Start Time Stop Time Status Last Admin Dose Admin Acetaminophen (Tylenol) 650 mg PRN Q6HRS PRN PO MILD PAIN / TEMP > 100.3'F 11/03/20 23:15 Cancel Multi-Ingredient Ointment (Analgesic [place]) 1 estrellita PRN QID PRN TP MUSCLE PAIN 11/03/20 23:15 Al Hydroxide/Mg Hydroxide (Mylanta Plus Xs) 15 ml PRN AFTMEALHC PRN PO DYSPEPSIA 11/03/20 23:15 11/18/20 12:54 Magnesium Hydroxide (Milk Of Magnesia) 2,400 mg PRN QHS PRN PO CONSTIPATION 11/03/20 23:15 Levothyroxine Sodium (Synthroid) 25 mcg DAILY06 PO 11/04/20 06:00 11/19/20 05:48 Pantoprazole Sodium (Protonix) 40 mg DAILYAC PO 11/04/20 07:30 11/19/20 05:47 Acetaminophen (Tylenol) 650 mg PRN Q4HRS PRN PO PAIN 11/04/20 00:45 Aspirin (Aspirin Chewable) 81 mg DAILYWBKFT PO 11/04/20 08:00 11/19/20 05:48 Hydroxyzine Pamoate (Vistaril) 25 mg PRN Q6HRS PRN PO agitation/anxiety 11/04/20 00:45 11/18/20 19:46 Melatonin (Melatonin) 3 mg HS PO 11/04/20 21:00 11/19/20 19:54 Nystatin (Nystop) 1 estrellita PRN BID PRN TP RASH 11/04/20 00:45 Polyethylene Glycol (miraLAX) 17 gm DAILY PO 11/04/20 09:00 11/19/20 05:48 Quetiapine Fumarate (SEROquel) 25 mg BID PO 11/04/20 09:00 11/15/20 21:52 DC 11/15/20 19:38 Quetiapine Fumarate (SEROquel) 100 mg TID PO 11/04/20 09:00 11/19/20 19:54 Trazodone HCl (Desyrel) 100 mg HS PO 11/04/20 21:00 11/19/20 19:54 Non-Formulary Medication (Ergocalciferol (Vitamin D2) (Vitamin D2)) 1,250 mcg WEEKLY PO 11/04/20 09:00 11/04/20 15:01 DC Citalopram Hydrobromide (CeleXA) 40 mg DAILY PO 11/04/20 09:00 11/05/20 18:18 DC 11/05/20 08:22 Fenofibrate (Tricor) 145 mg DAILY PO 11/04/20 09:00 11/19/20 05:47 Non-Formulary Medication (Guanfacine Hcl ) 1 tab BID PO 11/04/20 09:00 11/08/20 18:18 DC Non-Formulary Medication (Insulin Aspart (Novolog)) 9 unit TIDWMEALS SQ 11/04/20 08:00 UNV Non-Formulary Medication (Insulin Glargine,Hum.rec.anlog (Lantus Solostar)) 20 unit QHS SQ 11/04/20 21:00 UNV Non-Formulary Medication (Menthol/Zinc Oxide (Calmoseptine Ointment)) 71 gm BID TP 11/04/20 09:00 11/04/20 14:56 DC Insulin Glargine (Lantus Syringe) 20 unit QHS SQ 11/04/20 21:00 11/19/20 10:32 DC 11/18/20 20:56 Insulin Human Lispro (HumaLOG) 9 units TIDWMEALS SQ 11/04/20 08:00 11/19/20 10:33 DC 11/19/20 08:00 Vitamin D (Vitamin D3) 50,000 unit WEEKLY PO 11/05/20 09:00 11/19/20 05:51 Diphenhydramine HCl (Benadryl) 50 mg PRN Q6HRS PRN PO RASH 11/05/20 11:30 11/17/20 17:46 Oxcarbazepine (Trileptal) 300 mg BID PO 11/05/20 21:00 11/07/20 16:24 DC 11/07/20 09:08 Fluvoxamine Maleate (Luvox) 50 mg QHS PO 11/05/20 21:00 11/13/20 17:24 DC 11/12/20 19:30 Levofloxacin (Levaquin) 250 mg DAILY06 PO 11/06/20 16:00 11/10/20 06:01 DC 11/10/20 05:30 Lactobacillus Rhamnosus (Culturelle) 1 cap BID PO 11/07/20 21:00 11/19/20 19:54 Olanzapine (ZyPREXA ZYDIS) 5 mg PRN Q2HR PRN PO PSYCHOSIS 11/08/20 17:00 11/17/20 17:46 Carbamazepine (TEGretol) 200 mg QHS PO 11/08/20 21:00 11/19/20 19:54 Carbamazepine (TEGretol) 100 mg DAILY PO 11/12/20 09:00 11/19/20 05:50 Fluvoxamine Maleate (Luvox) 75 mg QHS PO 11/13/20 21:00 11/16/20 17:16 DC 11/15/20 19:38 Quetiapine Fumarate (SEROquel) 50 mg DAILY PO 11/16/20 09:00 11/19/20 05:50 Quetiapine Fumarate (SEROquel) 25 mg BID@1300,1700 PO 11/16/20 13:00 11/19/20 17:00 Fluvoxamine Maleate (Luvox) 100 mg QHS PO 11/16/20 21:00 11/19/20 19:54 Insulin Glargine (Lantus Syringe) 30 unit QHS SQ 11/19/20 21:00 11/19/20 19:56 Insulin Human Lispro (HumaLOG) 12 units TIDWMEALS SQ 11/19/20 12:00 11/19/20 17:00 Current Medications Medications (Trade) Dose Ordered Sig/Carmina Route PRN Reason Start Time Stop Time Status Last Admin Dose Admin Insulin Glargine (Lantus Syringe) 30 unit QHS SQ 11/19/20 21:00 11/19/20 19:56 Insulin Human Lispro (HumaLOG) 12 units TIDWMEALS SQ 11/19/20 12:00 11/19/20 17:00 I have reviewed the current psychotropics carefully including drug interactions. Risk benefit ratio favors no change other than as noted in my dictated progress note. Diagnosis: Problems: (1) Obsessive compulsive disorder (2) Impulse control disorder (3) Intellectual disability (4) Anxiety disorder, unspecified (5) Bipolar affective, mixed, sev w/ psych IDA LAINEZ MD Nov 19, 2020 20:53
--- NOTE | 2020-11-19 21:00 | NUR ---
Nursing Note Pt in jhaveri yelling at her peers saying "Shut your stupid mouth, shut up shut up shut up!!" Approached and asked her to stop pt she yelled back, "I never said that honey". Pt walks away to her room, comes back out without her walker. Told her to get her walker and she said "No I don't have to!" Pt walks around stating she doesn't need her walker.
--- NOTE | 2020-11-19 22:04 | NUR ---
Pt yells out intermittently. Attempted to be redirected without success. Pt instructed to remain in her room if she could not stop yelling. Pt demanding and sarcastic towards staff. Compliant with whole medications with encouragement. Pt currently sleeping in bed.
[2020-11-20] MEDS: FENOFIBRATE NANOCRYSTALLIZED 145 MG TABLET PO SCH (05:07)
[2020-11-20] MEDS: LACTOBACILLUS RHAMNOSUS GG 1 CAPSULE. PO SCH ×2 (05:07→19:57)
[2020-11-20] MEDS: LEVOTHYROXINE 25 MCG TABLET. PO SCH (05:07)
[2020-11-20] MEDS: QUEtiapine 50 MG TABLET. PO SCH (05:07)
[2020-11-20] MEDS: ASPIRIN CHEWABLE 81 MG TABLET. PO SCH (05:07)
[2020-11-20] MEDS: QUEtiapine 100 MG TABLET. PO SCH ×3 (05:07→19:58)
[2020-11-20] MEDS: PANTOPRAZOLE 40 MG TABLET. PO SCH (05:07)
[2020-11-20] MEDS: POLYETHYLENE GLYCOL 3350 17 GM PACKET. PO SCH (05:08)
[2020-11-20] MEDS: carBAMazepine 100 MG TAB.CHEW PO SCH (05:09)
[2020-11-20 06:25] VITALS: BP 114/74
--- NOTE | 2020-11-20 07:15 | PDOC ---
Exam Note: Marcelo Note: This note is a late entry for 11/18/2020 covers elements not covered in my initial note. Subjective: The patient was seen face to face in the morning of 11/18/2020 for a treatment team meeting with Belkis Dinh, Geeta Monroe and Thais (community mental health social worker), Migdalia Smith, activity therapy and Janice HOLLINGSWORTH, reviewed the chart. The patients sister Ricky attended the lengthy conference. Again reviewed the patients history, progress. She slept 7-1/4 hours previous night. She has done better with the yelling, repetitive behaviors today as compared to the day before. Review of Systems: Ambulation impaired with walker. No CV, , pulmonary, eye, ENT system symptoms on review. Mental Status Exam: The patient is oriented to herself and situation. Speech is coherent, rapid, at times, somewhat repetitive, obsessive. Abstraction is fair. Computation is impaired. Language function intact. She does make some facial gestures. No different than before. No suicidal or homicidal ideation. Laboratory Data: Reviewed. Impression: Bipolar 1 disorder mixed with psychotic features. OCD. Intellectual disability. Anxiety disorder unspecified. Impulse control disorder unspecified. Plan: Continue psychotropics from initial note. Tegretol level is therapeutic. Seroquel and hydroxyzine is p.r.n. for anxiety, trazodone, and melatonin, Luvox 100 mg a day, and Tegretol with therapeutic level. Adjust further as clinically indicated. Assessment: Vital Signs/I&O: Vital Signs Date Time Temp Pulse Resp B/P (MAP) Pulse Ox O2 Delivery O2 Flow Rate FiO2 11/20/20 06:25 98.4 87 18 114/74 (87) 92 11/17/20 06:22 Room Air I & O 11/19/20 11/19/20 11/20/20 15:00 23:00 07:00 Intake Total 480 ml 600 ml Balance 480 ml 600 ml Labs: Laboratory Tests Test 11/19/20 07:35 11/19/20 11:19 11/19/20 16:39 11/19/20 19:07 Glucose (Fingerstick) 310 mg/dL (70-99) H 250 mg/dL (70-99) H 177 mg/dL (70-99) H 290 mg/dL (70-99) H Current Medications: Meds: Laboratory Tests Test 11/19/20 07:35 11/19/20 11:19 11/19/20 16:39 11/19/20 19:07 Glucose (Fingerstick) 310 mg/dL 250 mg/dL 177 mg/dL 290 mg/dL Current Medications Medications (Trade) Dose Ordered Sig/Carmina Route PRN Reason Start Time Stop Time Status Last Admin Dose Admin Acetaminophen (Tylenol) 650 mg PRN Q6HRS PRN PO MILD PAIN / TEMP > 100.3'F 11/03/20 23:15 Cancel Multi-Ingredient Ointment (Analgesic [place]) 1 estrellita PRN QID PRN TP MUSCLE PAIN 11/03/20 23:15 Al Hydroxide/Mg Hydroxide (Mylanta Plus Xs) 15 ml PRN AFTMEALHC PRN PO DYSPEPSIA 11/03/20 23:15 11/18/20 12:54 Magnesium Hydroxide (Milk Of Magnesia) 2,400 mg PRN QHS PRN PO CONSTIPATION 11/03/20 23:15 Levothyroxine Sodium (Synthroid) 25 mcg DAILY06 PO 11/04/20 06:00 11/20/20 05:07 Pantoprazole Sodium (Protonix) 40 mg DAILYAC PO 11/04/20 07:30 11/20/20 05:07 Acetaminophen (Tylenol) 650 mg PRN Q4HRS PRN PO PAIN 11/04/20 00:45 Aspirin (Aspirin Chewable) 81 mg DAILYWBKFT PO 11/04/20 08:00 11/20/20 05:07 Hydroxyzine Pamoate (Vistaril) 25 mg PRN Q6HRS PRN PO agitation/anxiety 11/04/20 00:45 11/18/20 19:46 Melatonin (Melatonin) 3 mg HS PO 11/04/20 21:00 11/19/20 19:54 Nystatin (Nystop) 1 estrellita PRN BID PRN TP RASH 11/04/20 00:45 Polyethylene Glycol (miraLAX) 17 gm DAILY PO 11/04/20 09:00 11/20/20 05:08 Quetiapine Fumarate (SEROquel) 25 mg BID PO 11/04/20 09:00 11/15/20 21:52 DC 11/15/20 19:38 Quetiapine Fumarate (SEROquel) 100 mg TID PO 11/04/20 09:00 11/20/20 05:07 Trazodone HCl (Desyrel) 100 mg HS PO 11/04/20 21:00 11/19/20 19:54 Non-Formulary Medication (Ergocalciferol (Vitamin D2) (Vitamin D2)) 1,250 mcg WEEKLY PO 11/04/20 09:00 11/04/20 15:01 DC Citalopram Hydrobromide (CeleXA) 40 mg DAILY PO 11/04/20 09:00 11/05/20 18:18 DC 11/05/20 08:22 Fenofibrate (Tricor) 145 mg DAILY PO 11/04/20 09:00 11/20/20 05:07 Non-Formulary Medication (Guanfacine Hcl ) 1 tab BID PO 11/04/20 09:00 11/08/20 18:18 DC Non-Formulary Medication (Insulin Aspart (Novolog)) 9 unit TIDWMEALS SQ 11/04/20 08:00 UNV Non-Formulary Medication (Insulin Glargine,Hum.rec.anlog (Lantus Solostar)) 20 unit QHS SQ 11/04/20 21:00 UNV Non-Formulary Medication (Menthol/Zinc Oxide (Calmoseptine Ointment)) 71 gm BID TP 11/04/20 09:00 11/04/20 14:56 DC Insulin Glargine (Lantus Syringe) 20 unit QHS SQ 11/04/20 21:00 11/19/20 10:32 DC 11/18/20 20:56 Insulin Human Lispro (HumaLOG) 9 units TIDWMEALS SQ 11/04/20 08:00 11/19/20 10:33 DC 11/19/20 08:00 Vitamin D (Vitamin D3) 50,000 unit WEEKLY PO 11/05/20 09:00 11/19/20 05:51 Diphenhydramine HCl (Benadryl) 50 mg PRN Q6HRS PRN PO RASH 11/05/20 11:30 11/17/20 17:46 Oxcarbazepine (Trileptal) 300 mg BID PO 11/05/20 21:00 11/07/20 16:24 DC 11/07/20 09:08 Fluvoxamine Maleate (Luvox) 50 mg QHS PO 11/05/20 21:00 11/13/20 17:24 DC 11/12/20 19:30 Levofloxacin (Levaquin) 250 mg DAILY06 PO 11/06/20 16:00 11/10/20 06:01 DC 11/10/20 05:30 Lactobacillus Rhamnosus (Culturelle) 1 cap BID PO 11/07/20 21:00 11/20/20 05:07 Olanzapine (ZyPREXA ZYDIS) 5 mg PRN Q2HR PRN PO PSYCHOSIS 11/08/20 17:00 11/17/20 17:46 Carbamazepine (TEGretol) 200 mg QHS PO 11/08/20 21:00 11/19/20 19:54 Carbamazepine (TEGretol) 100 mg DAILY PO 11/12/20 09:00 11/20/20 05:09 Fluvoxamine Maleate (Luvox) 75 mg QHS PO 11/13/20 21:00 11/16/20 17:16 DC 11/15/20 19:38 Quetiapine Fumarate (SEROquel) 50 mg DAILY PO 11/16/20 09:00 11/20/20 05:07 Quetiapine Fumarate (SEROquel) 25 mg BID@1300,1700 PO 11/16/20 13:00 11/19/20 17:00 Fluvoxamine Maleate (Luvox) 100 mg QHS PO 11/16/20 21:00 11/19/20 19:54 Insulin Glargine (Lantus Syringe) 30 unit QHS SQ 11/19/20 21:00 11/19/20 19:56 Insulin Human Lispro (HumaLOG) 12 units TIDWMEALS SQ 11/19/20 12:00 11/19/20 17:00 Current Medications Medications (Trade) Dose Ordered Sig/Carmina Route PRN Reason Start Time Stop Time Status Last Admin Dose Admin Insulin Glargine (Lantus Syringe) 30 unit QHS SQ 11/19/20 21:00 11/19/20 19:56 Insulin Human Lispro (HumaLOG) 12 units TIDWMEALS SQ 11/19/20 12:00 11/19/20 17:00 I have reviewed the current psychotropics carefully including drug interactions. Risk benefit ratio favors no change other than as noted in my dictated progress note. Diagnosis: Problems: (1) Obsessive compulsive disorder (2) Impulse control disorder (3) Intellectual disability (4) Anxiety disorder, unspecified (5) Bipolar affective, mixed, sev w/ psych IDA LAINEZ MD Nov 20, 2020 07:15
--- NOTE | 2020-11-20 07:40 | PDOC ---
Exam Note: Marcelo Note: This note is a late entry for 11/19/2020 covers elements not covered in my initial note. Subjective: The patient was seen face to face in the evening of 11/19/2020 with Chely HOLLINGSWORTH, reviewed the chart. The patient slept 6 hours previous night. According to nursing report previous evening the patient pushed herself to the floor. No injuries were noted but she shared this with her sister who was very concerned. At this time the patient is asymptomatic and I had her walk with me with a walker up and down the hallway, a couple of times she did well. Earlier in the day today, Dr. Taylor had ordered an x-ray of the back and this is unremarkable other than osteoporosis. Review of Systems: Ambulation impaired with walker. No CV, , pulmonary, eye, ENT system symptoms on review. Mental Status Exam: The patient is oriented to herself and situation. Speech is coherent, somewhat rapid, repetitive, obsessive. Abstraction is fair. Computation is impaired. Language function intact. Attention span is short. Mood and affect somewhat anxious, labile but improved. Laboratory Data: Reviewed. Impression: Bipolar 1 disorder mixed with psychotic features. OCD. Anxiety disorder unspecified. Impulse control disorder unspecified. Plan: No change from initial note. Assessment: Vital Signs/I&O: Vital Signs Date Time Temp Pulse Resp B/P (MAP) Pulse Ox O2 Delivery O2 Flow Rate FiO2 11/20/20 06:25 98.4 87 18 114/74 (87) 92 11/17/20 06:22 Room Air I & O 11/19/20 11/19/20 11/20/20 15:00 23:00 07:00 Intake Total 480 ml 600 ml Balance 480 ml 600 ml Labs: Laboratory Tests Test 11/19/20 11:19 11/19/20 16:39 11/19/20 19:07 Glucose (Fingerstick) 250 mg/dL (70-99) H 177 mg/dL (70-99) H 290 mg/dL (70-99) H Current Medications: Meds: Laboratory Tests Test 11/19/20 11:19 11/19/20 16:39 11/19/20 19:07 Glucose (Fingerstick) 250 mg/dL 177 mg/dL 290 mg/dL Current Medications Medications (Trade) Dose Ordered Sig/Carmina Route PRN Reason Start Time Stop Time Status Last Admin Dose Admin Acetaminophen (Tylenol) 650 mg PRN Q6HRS PRN PO MILD PAIN / TEMP > 100.3'F 11/03/20 23:15 Cancel Multi-Ingredient Ointment (Analgesic [place]) 1 estrellita PRN QID PRN TP MUSCLE PAIN 11/03/20 23:15 Al Hydroxide/Mg Hydroxide (Mylanta Plus Xs) 15 ml PRN AFTMEALHC PRN PO DYSPEPSIA 11/03/20 23:15 11/18/20 12:54 Magnesium Hydroxide (Milk Of Magnesia) 2,400 mg PRN QHS PRN PO CONSTIPATION 11/03/20 23:15 Levothyroxine Sodium (Synthroid) 25 mcg DAILY06 PO 11/04/20 06:00 11/20/20 05:07 Pantoprazole Sodium (Protonix) 40 mg DAILYAC PO 11/04/20 07:30 11/20/20 05:07 Acetaminophen (Tylenol) 650 mg PRN Q4HRS PRN PO PAIN 11/04/20 00:45 Aspirin (Aspirin Chewable) 81 mg DAILYWBKFT PO 11/04/20 08:00 11/20/20 05:07 Hydroxyzine Pamoate (Vistaril) 25 mg PRN Q6HRS PRN PO agitation/anxiety 11/04/20 00:45 11/18/20 19:46 Melatonin (Melatonin) 3 mg HS PO 11/04/20 21:00 11/19/20 19:54 Nystatin (Nystop) 1 estrellita PRN BID PRN TP RASH 11/04/20 00:45 Polyethylene Glycol (miraLAX) 17 gm DAILY PO 11/04/20 09:00 11/20/20 05:08 Quetiapine Fumarate (SEROquel) 25 mg BID PO 11/04/20 09:00 11/15/20 21:52 DC 11/15/20 19:38 Quetiapine Fumarate (SEROquel) 100 mg TID PO 11/04/20 09:00 11/20/20 05:07 Trazodone HCl (Desyrel) 100 mg HS PO 11/04/20 21:00 11/19/20 19:54 Non-Formulary Medication (Ergocalciferol (Vitamin D2) (Vitamin D2)) 1,250 mcg WEEKLY PO 11/04/20 09:00 11/04/20 15:01 DC Citalopram Hydrobromide (CeleXA) 40 mg DAILY PO 11/04/20 09:00 11/05/20 18:18 DC 11/05/20 08:22 Fenofibrate (Tricor) 145 mg DAILY PO 11/04/20 09:00 11/20/20 05:07 Non-Formulary Medication (Guanfacine Hcl ) 1 tab BID PO 11/04/20 09:00 11/08/20 18:18 DC Non-Formulary Medication (Insulin Aspart (Novolog)) 9 unit TIDWMEALS SQ 11/04/20 08:00 UNV Non-Formulary Medication (Insulin Glargine,Hum.rec.anlog (Lantus Solostar)) 20 unit QHS SQ 11/04/20 21:00 UNV Non-Formulary Medication (Menthol/Zinc Oxide (Calmoseptine Ointment)) 71 gm BID TP 11/04/20 09:00 11/04/20 14:56 DC Insulin Glargine (Lantus Syringe) 20 unit QHS SQ 11/04/20 21:00 11/19/20 10:32 DC 11/18/20 20:56 Insulin Human Lispro (HumaLOG) 9 units TIDWMEALS SQ 11/04/20 08:00 11/19/20 10:33 DC 11/19/20 08:00 Vitamin D (Vitamin D3) 50,000 unit WEEKLY PO 11/05/20 09:00 11/19/20 05:51 Diphenhydramine HCl (Benadryl) 50 mg PRN Q6HRS PRN PO RASH 11/05/20 11:30 11/17/20 17:46 Oxcarbazepine (Trileptal) 300 mg BID PO 11/05/20 21:00 11/07/20 16:24 DC 11/07/20 09:08 Fluvoxamine Maleate (Luvox) 50 mg QHS PO 11/05/20 21:00 11/13/20 17:24 DC 11/12/20 19:30 Levofloxacin (Levaquin) 250 mg DAILY06 PO 11/06/20 16:00 11/10/20 06:01 DC 11/10/20 05:30 Lactobacillus Rhamnosus (Culturelle) 1 cap BID PO 11/07/20 21:00 11/20/20 05:07 Olanzapine (ZyPREXA ZYDIS) 5 mg PRN Q2HR PRN PO PSYCHOSIS 11/08/20 17:00 11/17/20 17:46 Carbamazepine (TEGretol) 200 mg QHS PO 11/08/20 21:00 11/19/20 19:54 Carbamazepine (TEGretol) 100 mg DAILY PO 11/12/20 09:00 11/20/20 05:09 Fluvoxamine Maleate (Luvox) 75 mg QHS PO 11/13/20 21:00 11/16/20 17:16 DC 11/15/20 19:38 Quetiapine Fumarate (SEROquel) 50 mg DAILY PO 11/16/20 09:00 11/20/20 05:07 Quetiapine Fumarate (SEROquel) 25 mg BID@1300,1700 PO 11/16/20 13:00 11/19/20 17:00 Fluvoxamine Maleate (Luvox) 100 mg QHS PO 11/16/20 21:00 11/19/20 19:54 Insulin Glargine (Lantus Syringe) 30 unit QHS SQ 11/19/20 21:00 11/19/20 19:56 Insulin Human Lispro (HumaLOG) 12 units TIDWMEALS SQ 11/19/20 12:00 11/19/20 17:00 Current Medications Medications (Trade) Dose Ordered Sig/Carmina Route PRN Reason Start Time Stop Time Status Last Admin Dose Admin Insulin Glargine (Lantus Syringe) 30 unit QHS SQ 11/19/20 21:00 11/19/20 19:56 Insulin Human Lispro (HumaLOG) 12 units TIDWMEALS SQ 11/19/20 12:00 11/19/20 17:00 I have reviewed the current psychotropics carefully including drug interactions. Risk benefit ratio favors no change other than as noted in my dictated progress note. Diagnosis: Problems: (1) Obsessive compulsive disorder (2) Bipolar affective, mixed, sev w/ psych (3) Impulse control disorder (4) Anxiety disorder, unspecified IDA LAINEZ MD Nov 20, 2020 07:39
[2020-11-20] MEDS: INSULIN LISPRO 300 UNITS/3 ML VIAL. SQ SCH ×3 (08:00→17:19)
--- NOTE | 2020-11-20 09:46 | NUR ---
Patient is yelling out this morning. after being redirected patient appears to be calm wandering around unit. Patient is cooperative.
[2020-11-20 11:01] LABS: BASO # 0.1 x10^3/uL (0.0-0.2); BASO % 1 % (0-3); EOS # 0.4 x10^3/uL (0.0-0.7); EOS % 5 % (0-3); HEMOGLOBIN 13.7 g/dL (12.0-15.5); LYMPH # 3.1 x10^3/uL (1.0-4.8); LYMPH % 38 % (24-48); MEAN CORPUSCULAR HEMOGLOBIN 30 pg (25-35); MEAN CORPUSCULAR HGB CONC 33 g/dL (31-37); MEAN CORPUSCULAR VOLUME 91 fL (79-100); MONO # 0.4 x10^3/uL (0.0-1.1); MONO % 5 % (0-9); NEUT % 51 % (31-73); PLATELET COUNT 145 x10^3/uL (140-400); RED CELL DISTRIBUTION WIDTH 13.5 % (11.5-14.5)
[2020-11-20 11:13] LABS: ALBUMIN 3.6 g/dL (3.4-5.0); ALBUMIN/GLOBULIN RATIO 0.9 (1.0-1.7); CALCIUM 8.7 mg/dL (8.5-10.1); CREATININE 0.9 mg/dL (0.6-1.0); GFR 61.2; POTASSIUM 3.9 mmol/L (3.5-5.1); TOTAL BILIRUBIN 0.4 mg/dL (0.2-1.0); TOTAL PROTEIN 7.7 g/dL (6.4-8.2)
[2020-11-20] MEDS: QUEtiapine 25 MG TABLET. PO SCH ×2 (12:28→17:18)
[2020-11-20] MEDS: ACETAMINOPHEN 325 MG TABLET PO PRN (15:34)
[2020-11-20 15:55] VITALS: BP 150/82
[2020-11-20] MEDS: MELATONIN 3 MG TABLET PO SCH (19:58)
[2020-11-20] MEDS: carBAMazepine 200 MG TABLET PO SCH (19:58)
[2020-11-20] MEDS: traZODone 100 MG TABLET. PO SCH (19:58)
[2020-11-20] MEDS: hydrOXYzine PAMOATE 25 MG CAPSULE PO PRN (20:00)
[2020-11-20] MEDS: INSULIN GLARGINE SYRINGE. SQ SCH (20:01)
--- NOTE | 2020-11-20 21:03 | PDOC ---
Exam Note: Marcelo Note: Please also refer to the separate dictated note~for this date of service dictated separately.~Patient seen individually. Discussed the patient with Nursing staff reviewed the chart.~Reviewed interim history and current functioning. Reviewed vital signs,~Labs/ Radiology~and current medications noted below. Continue current treatment with the changes noted in the dictated addendum note Assessment: Vital Signs/I&O: Vital Signs Date Time Temp Pulse Resp B/P (MAP) Pulse Ox O2 Delivery O2 Flow Rate FiO2 11/20/20 15:55 97.7 86 18 150/82 (104) 96 11/17/20 06:22 Room Air I & O 11/19/20 11/19/20 11/20/20 15:00 23:00 07:00 Intake Total 480 ml 600 ml Balance 480 ml 600 ml Labs: Laboratory Tests Test 11/20/20 08:07 11/20/20 09:50 11/20/20 11:26 11/20/20 16:42 Glucose (Fingerstick) 161 mg/dL (70-99) H 233 mg/dL (70-99) H 219 mg/dL (70-99) H White Blood Count 8.0 x10^3/uL (4.0-11.0) Red Blood Count 4.60 x10^6/uL (3.50-5.40) Hemoglobin 13.7 g/dL (12.0-15.5) Hematocrit 42.0 % (36.0-47.0) Mean Corpuscular Volume 91 fL (79-100) Mean Corpuscular Hemoglobin 30 pg (25-35) Mean Corpuscular Hemoglobin Concent 33 g/dL (31-37) Red Cell Distribution Width 13.5 % (11.5-14.5) Platelet Count 145 x10^3/uL (140-400) Neutrophils (%) (Auto) 51 % (31-73) Lymphocytes (%) (Auto) 38 % (24-48) Monocytes (%) (Auto) 5 % (0-9) Eosinophils (%) (Auto) 5 % (0-3) H Basophils (%) (Auto) 1 % (0-3) Neutrophils # (Auto) 4.0 x10^3uL (1.8-7.7) Lymphocytes # (Auto) 3.1 x10^3/uL (1.0-4.8) Monocytes # (Auto) 0.4 x10^3/uL (0.0-1.1) Eosinophils # (Auto) 0.4 x10^3/uL (0.0-0.7) Basophils # (Auto) 0.1 x10^3/uL (0.0-0.2) Sodium Level 136 mmol/L (136-145) Potassium Level 3.9 mmol/L (3.5-5.1) Chloride Level 100 mmol/L (98-107) Carbon Dioxide Level 27 mmol/L (21-32) Anion Gap 9 (6-14) Blood Urea Nitrogen 16 mg/dL (7-20) Creatinine 0.9 mg/dL (0.6-1.0) Estimated GFR (Cockcroft-Gault) 61.2 BUN/Creatinine Ratio 18 (6-20) Glucose Level 208 mg/dL (70-99) H Calcium Level 8.7 mg/dL (8.5-10.1) Total Bilirubin 0.4 mg/dL (0.2-1.0) Aspartate Amino Transferase (AST) 26 U/L (15-37) Alanine Aminotransferase (ALT) 28 U/L (14-59) Alkaline Phosphatase 71 U/L (46-116) Total Protein 7.7 g/dL (6.4-8.2) Albumin 3.6 g/dL (3.4-5.0) Albumin/Globulin Ratio 0.9 (1.0-1.7) L Test 11/20/20 19:08 Glucose (Fingerstick) 200 mg/dL (70-99) H Current Medications: Meds: Laboratory Tests Test 11/20/20 08:07 11/20/20 09:50 11/20/20 11:26 11/20/20 16:42 Glucose (Fingerstick) 161 mg/dL 233 mg/dL 219 mg/dL White Blood Count 8.0 x10^3/uL Red Blood Count 4.60 x10^6/uL Hemoglobin 13.7 g/dL Hematocrit 42.0 % Mean Corpuscular Volume 91 fL Mean Corpuscular Hemoglobin 30 pg Mean Corpuscular Hemoglobin Concent 33 g/dL Red Cell Distribution Width 13.5 % Platelet Count 145 x10^3/uL Neutrophils (%) (Auto) 51 % Lymphocytes (%) (Auto) 38 % Monocytes (%) (Auto) 5 % Eosinophils (%) (Auto) 5 % Basophils (%) (Auto) 1 % Neutrophils # (Auto) 4.0 x10^3uL Lymphocytes # (Auto) 3.1 x10^3/uL Monocytes # (Auto) 0.4 x10^3/uL Eosinophils # (Auto) 0.4 x10^3/uL Basophils # (Auto) 0.1 x10^3/uL Sodium Level 136 mmol/L Potassium Level 3.9 mmol/L Chloride Level 100 mmol/L Carbon Dioxide Level 27 mmol/L Anion Gap 9 Blood Urea Nitrogen 16 mg/dL Creatinine 0.9 mg/dL Estimated GFR (Cockcroft-Gault) 61.2 BUN/Creatinine Ratio 18 Glucose Level 208 mg/dL Calcium Level 8.7 mg/dL Total Bilirubin 0.4 mg/dL Aspartate Amino Transf (AST/SGOT) 26 U/L Alanine Aminotransferase (ALT/SGPT) 28 U/L Alkaline Phosphatase 71 U/L Total Protein 7.7 g/dL Albumin 3.6 g/dL Albumin/Globulin Ratio 0.9 Test 11/20/20 19:08 Glucose (Fingerstick) 200 mg/dL Current Medications Medications (Trade) Dose Ordered Sig/Carmina Route PRN Reason Start Time Stop Time Status Last Admin Dose Admin Acetaminophen (Tylenol) 650 mg PRN Q6HRS PRN PO MILD PAIN / TEMP > 100.3'F 11/03/20 23:15 Cancel Multi-Ingredient Ointment (Analgesic [place]) 1 estrellita PRN QID PRN TP MUSCLE PAIN 11/03/20 23:15 Al Hydroxide/Mg Hydroxide (Mylanta Plus Xs) 15 ml PRN AFTMEALHC PRN PO DYSPEPSIA 11/03/20 23:15 11/18/20 12:54 Magnesium Hydroxide (Milk Of Magnesia) 2,400 mg PRN QHS PRN PO CONSTIPATION 11/03/20 23:15 Levothyroxine Sodium (Synthroid) 25 mcg DAILY06 PO 11/04/20 06:00 11/20/20 05:07 Pantoprazole Sodium (Protonix) 40 mg DAILYAC PO 11/04/20 07:30 11/20/20 05:07 Acetaminophen (Tylenol) 650 mg PRN Q4HRS PRN PO PAIN 11/04/20 00:45 11/20/20 15:34 Aspirin (Aspirin Chewable) 81 mg DAILYWBKFT PO 11/04/20 08:00 11/20/20 05:07 Hydroxyzine Pamoate (Vistaril) 25 mg PRN Q6HRS PRN PO agitation/anxiety 11/04/20 00:45 11/20/20 20:00 Melatonin (Melatonin) 3 mg HS PO 11/04/20 21:00 11/20/20 19:58 Nystatin (Nystop) 1 estrellita PRN BID PRN TP RASH 11/04/20 00:45 Polyethylene Glycol (miraLAX) 17 gm DAILY PO 11/04/20 09:00 11/20/20 05:08 Quetiapine Fumarate (SEROquel) 25 mg BID PO 11/04/20 09:00 11/15/20 21:52 DC 11/15/20 19:38 Quetiapine Fumarate (SEROquel) 100 mg TID PO 11/04/20 09:00 11/20/20 19:58 Trazodone HCl (Desyrel) 100 mg HS PO 11/04/20 21:00 11/20/20 19:58 Non-Formulary Medication (Ergocalciferol (Vitamin D2) (Vitamin D2)) 1,250 mcg WEEKLY PO 11/04/20 09:00 11/04/20 15:01 DC Citalopram Hydrobromide (CeleXA) 40 mg DAILY PO 11/04/20 09:00 11/05/20 18:18 DC 11/05/20 08:22 Fenofibrate (Tricor) 145 mg DAILY PO 11/04/20 09:00 11/20/20 05:07 Non-Formulary Medication (Guanfacine Hcl ) 1 tab BID PO 11/04/20 09:00 11/08/20 18:18 DC Non-Formulary Medication (Insulin Aspart (Novolog)) 9 unit TIDWMEALS SQ 11/04/20 08:00 UNV Non-Formulary Medication (Insulin Glargine,Hum.rec.anlog (Lantus Solostar)) 20 unit QHS SQ 11/04/20 21:00 UNV Non-Formulary Medication (Menthol/Zinc Oxide (Calmoseptine Ointment)) 71 gm BID TP 11/04/20 09:00 11/04/20 14:56 DC Insulin Glargine (Lantus Syringe) 20 unit QHS SQ 11/04/20 21:00 11/19/20 10:32 DC 11/18/20 20:56 Insulin Human Lispro (HumaLOG) 9 units TIDWMEALS SQ 11/04/20 08:00 11/19/20 10:33 DC 11/19/20 08:00 Vitamin D (Vitamin D3) 50,000 unit WEEKLY PO 11/05/20 09:00 11/19/20 05:51 Diphenhydramine HCl (Benadryl) 50 mg PRN Q6HRS PRN PO RASH 11/05/20 11:30 11/17/20 17:46 Oxcarbazepine (Trileptal) 300 mg BID PO 11/05/20 21:00 11/07/20 16:24 DC 11/07/20 09:08 Fluvoxamine Maleate (Luvox) 50 mg QHS PO 11/05/20 21:00 11/13/20 17:24 DC 11/12/20 19:30 Levofloxacin (Levaquin) 250 mg DAILY06 PO 11/06/20 16:00 11/10/20 06:01 DC 11/10/20 05:30 Lactobacillus Rhamnosus (Culturelle) 1 cap BID PO 11/07/20 21:00 11/20/20 19:57 Olanzapine (ZyPREXA ZYDIS) 5 mg PRN Q2HR PRN PO PSYCHOSIS 11/08/20 17:00 11/17/20 17:46 Carbamazepine (TEGretol) 200 mg QHS PO 11/08/20 21:00 11/20/20 19:58 Carbamazepine (TEGretol) 100 mg DAILY PO 11/12/20 09:00 11/20/20 05:09 Fluvoxamine Maleate (Luvox) 75 mg QHS PO 11/13/20 21:00 11/16/20 17:16 DC 11/15/20 19:38 Quetiapine Fumarate (SEROquel) 50 mg DAILY PO 11/16/20 09:00 11/20/20 05:07 Quetiapine Fumarate (SEROquel) 25 mg BID@1300,1700 PO 11/16/20 13:00 11/20/20 17:18 Fluvoxamine Maleate (Luvox) 100 mg QHS PO 11/16/20 21:00 11/20/20 19:57 Insulin Glargine (Lantus Syringe) 30 unit QHS SQ 11/19/20 21:00 11/20/20 20:01 Insulin Human Lispro (HumaLOG) 12 units TIDWMEALS SQ 11/19/20 12:00 11/20/20 17:19 I have reviewed the current psychotropics carefully including drug interactions. Risk benefit ratio favors no change other than as noted in my dictated progress note. Diagnosis: Problems: (1) Obsessive compulsive disorder (2) Impulse control disorder (3) Intellectual disability (4) Anxiety disorder, unspecified (5) Bipolar affective, mixed, sev w/ psych IDA LAINEZ MD Nov 20, 2020 21:03
--- NOTE | 2020-11-20 23:56 | NUR ---
Pt highly agitated this evening. Pt sitting at [facility] station calling patients "dumb bitches." Pt informed numerous times that she needed to go to her room if she continued to call people names. Pt yelling at staff stating "Dr. Marvin said I could." Pt calling staff names "dumb bitches." Pt repeatedly asking to call Ricky and was informed that she would not be calling Ricky tonight d/t her behaviors. Redirection unsuccessful. Pt eventually compliant with whole medications. PRN Vistaril administered with HS medications. Pt laying in bed currently intermittently calling out for Jet.
[2020-11-21] MEDS: LEVOTHYROXINE 25 MCG TABLET. PO SCH (05:40)
[2020-11-21 06:02] VITALS: BP 142/80
--- NOTE | 2020-11-21 08:07 | PDOC ---
Exam Note: Marcelo Note: This note is a late entry for 11/20/2020 covers elements not covered in my initial note. Subjective: The patient was seen on telehealth rounds in the evening of 11/20/2020 with Ferny HOLLINGSWORTH, reviewed the chart. The patient slept 7 hours previous night. She has been yelling off and on during the day but perhaps a little less than before and she is more cooperative, less obsessive. Review of Systems: Ambulation impaired with walker. No CV, , pulmonary, eye system symptoms on review. Mental Status Exam: The patient is oriented to herself and situation. Speech is coherent, has some latency. She has typical facial gestures, nose movements. Abstraction is fair. Computation is impaired. Language function intact. She is less anxious and obsessive. No suicidal or homicidal ideation. Laboratory Data: Reviewed. Impression: Bipolar 1 disorder mixed with psychotic features. OCD. Anxiety disorder unspecified. Impulse control disorder unspecified. Plan: Continue psychotropics from initial note. Tegretol level is therapeutic, Luvox 100 mg h.s. is a fair dosage for now. She remains on trazodone 100 mg h.s., melatonin 3 mg h.s., hydroxyzine p.r.n., Seroquel unchanged. Adjust further as clinically indicated. Assessment: Vital Signs/I&O: Vital Signs Date Time Temp Pulse Resp B/P (MAP) Pulse Ox O2 Delivery O2 Flow Rate FiO2 11/21/20 06:02 97.2 93 18 142/80 (100) 91 11/17/20 06:22 Room Air I & O 11/20/20 11/20/20 11/21/20 15:00 23:00 07:00 Intake Total 960 ml 1060 ml Balance 960 ml 1060 ml Labs: Laboratory Tests Test 11/20/20 09:50 11/20/20 11:26 11/20/20 16:42 11/20/20 19:08 White Blood Count 8.0 x10^3/uL (4.0-11.0) Red Blood Count 4.60 x10^6/uL (3.50-5.40) Hemoglobin 13.7 g/dL (12.0-15.5) Hematocrit 42.0 % (36.0-47.0) Mean Corpuscular Volume 91 fL (79-100) Mean Corpuscular Hemoglobin 30 pg (25-35) Mean Corpuscular Hemoglobin Concent 33 g/dL (31-37) Red Cell Distribution Width 13.5 % (11.5-14.5) Platelet Count 145 x10^3/uL (140-400) Neutrophils (%) (Auto) 51 % (31-73) Lymphocytes (%) (Auto) 38 % (24-48) Monocytes (%) (Auto) 5 % (0-9) Eosinophils (%) (Auto) 5 % (0-3) H Basophils (%) (Auto) 1 % (0-3) Neutrophils # (Auto) 4.0 x10^3uL (1.8-7.7) Lymphocytes # (Auto) 3.1 x10^3/uL (1.0-4.8) Monocytes # (Auto) 0.4 x10^3/uL (0.0-1.1) Eosinophils # (Auto) 0.4 x10^3/uL (0.0-0.7) Basophils # (Auto) 0.1 x10^3/uL (0.0-0.2) Sodium Level 136 mmol/L (136-145) Potassium Level 3.9 mmol/L (3.5-5.1) Chloride Level 100 mmol/L (98-107) Carbon Dioxide Level 27 mmol/L (21-32) Anion Gap 9 (6-14) Blood Urea Nitrogen 16 mg/dL (7-20) Creatinine 0.9 mg/dL (0.6-1.0) Estimated GFR (Cockcroft-Gault) 61.2 BUN/Creatinine Ratio 18 (6-20) Glucose Level 208 mg/dL (70-99) H Calcium Level 8.7 mg/dL (8.5-10.1) Total Bilirubin 0.4 mg/dL (0.2-1.0) Aspartate Amino Transferase (AST) 26 U/L (15-37) Alanine Aminotransferase (ALT) 28 U/L (14-59) Alkaline Phosphatase 71 U/L (46-116) Total Protein 7.7 g/dL (6.4-8.2) Albumin 3.6 g/dL (3.4-5.0) Albumin/Globulin Ratio 0.9 (1.0-1.7) L Glucose (Fingerstick) 233 mg/dL (70-99) H 219 mg/dL (70-99) H 200 mg/dL (70-99) H Test 11/21/20 07:46 Glucose (Fingerstick) 191 mg/dL (70-99) H Current Medications: Meds: Laboratory Tests Test 11/20/20 09:50 11/20/20 11:26 11/20/20 16:42 11/20/20 19:08 White Blood Count 8.0 x10^3/uL Red Blood Count 4.60 x10^6/uL Hemoglobin 13.7 g/dL Hematocrit 42.0 % Mean Corpuscular Volume 91 fL Mean Corpuscular Hemoglobin 30 pg Mean Corpuscular Hemoglobin Concent 33 g/dL Red Cell Distribution Width 13.5 % Platelet Count 145 x10^3/uL Neutrophils (%) (Auto) 51 % Lymphocytes (%) (Auto) 38 % Monocytes (%) (Auto) 5 % Eosinophils (%) (Auto) 5 % Basophils (%) (Auto) 1 % Neutrophils # (Auto) 4.0 x10^3uL Lymphocytes # (Auto) 3.1 x10^3/uL Monocytes # (Auto) 0.4 x10^3/uL Eosinophils # (Auto) 0.4 x10^3/uL Basophils # (Auto) 0.1 x10^3/uL Sodium Level 136 mmol/L Potassium Level 3.9 mmol/L Chloride Level 100 mmol/L Carbon Dioxide Level 27 mmol/L Anion Gap 9 Blood Urea Nitrogen 16 mg/dL Creatinine 0.9 mg/dL Estimated GFR (Cockcroft-Gault) 61.2 BUN/Creatinine Ratio 18 Glucose Level 208 mg/dL Calcium Level 8.7 mg/dL Total Bilirubin 0.4 mg/dL Aspartate Amino Transf (AST/SGOT) 26 U/L Alanine Aminotransferase (ALT/SGPT) 28 U/L Alkaline Phosphatase 71 U/L Total Protein 7.7 g/dL Albumin 3.6 g/dL Albumin/Globulin Ratio 0.9 Glucose (Fingerstick) 233 mg/dL 219 mg/dL 200 mg/dL Test 11/21/20 07:46 Glucose (Fingerstick) 191 mg/dL Current Medications Medications (Trade) Dose Ordered Sig/Carmina Route PRN Reason Start Time Stop Time Status Last Admin Dose Admin Acetaminophen (Tylenol) 650 mg PRN Q6HRS PRN PO MILD PAIN / TEMP > 100.3'F 11/03/20 23:15 Cancel Multi-Ingredient Ointment (Analgesic [place]) 1 estrellita PRN QID PRN TP MUSCLE PAIN 11/03/20 23:15 Al Hydroxide/Mg Hydroxide (Mylanta Plus Xs) 15 ml PRN AFTMEALHC PRN PO DYSPEPSIA 11/03/20 23:15 11/18/20 12:54 Magnesium Hydroxide (Milk Of Magnesia) 2,400 mg PRN QHS PRN PO CONSTIPATION 11/03/20 23:15 Levothyroxine Sodium (Synthroid) 25 mcg DAILY06 PO 11/04/20 06:00 11/21/20 05:40 Pantoprazole Sodium (Protonix) 40 mg DAILYAC PO 11/04/20 07:30 11/20/20 05:07 Acetaminophen (Tylenol) 650 mg PRN Q4HRS PRN PO PAIN 11/04/20 00:45 11/20/20 15:34 Aspirin (Aspirin Chewable) 81 mg DAILYWBKFT PO 11/04/20 08:00 11/20/20 05:07 Hydroxyzine Pamoate (Vistaril) 25 mg PRN Q6HRS PRN PO agitation/anxiety 11/04/20 00:45 11/20/20 20:00 Melatonin (Melatonin) 3 mg HS PO 11/04/20 21:00 11/20/20 19:58 Nystatin (Nystop) 1 estrellita PRN BID PRN TP RASH 11/04/20 00:45 Polyethylene Glycol (miraLAX) 17 gm DAILY PO 11/04/20 09:00 11/20/20 05:08 Quetiapine Fumarate (SEROquel) 25 mg BID PO 11/04/20 09:00 11/15/20 21:52 DC 11/15/20 19:38 Quetiapine Fumarate (SEROquel) 100 mg TID PO 11/04/20 09:00 11/20/20 19:58 Trazodone HCl (Desyrel) 100 mg HS PO 11/04/20 21:00 11/20/20 19:58 Non-Formulary Medication (Ergocalciferol (Vitamin D2) (Vitamin D2)) 1,250 mcg WEEKLY PO 11/04/20 09:00 11/04/20 15:01 DC Citalopram Hydrobromide (CeleXA) 40 mg DAILY PO 11/04/20 09:00 11/05/20 18:18 DC 11/05/20 08:22 Fenofibrate (Tricor) 145 mg DAILY PO 11/04/20 09:00 11/20/20 05:07 Non-Formulary Medication (Guanfacine Hcl ) 1 tab BID PO 11/04/20 09:00 11/08/20 18:18 DC Non-Formulary Medication (Insulin Aspart (Novolog)) 9 unit TIDWMEALS SQ 11/04/20 08:00 UNV Non-Formulary Medication (Insulin Glargine,Hum.rec.anlog (Lantus Solostar)) 20 unit QHS SQ 11/04/20 21:00 UNV Non-Formulary Medication (Menthol/Zinc Oxide (Calmoseptine Ointment)) 71 gm BID TP 11/04/20 09:00 11/04/20 14:56 DC Insulin Glargine (Lantus Syringe) 20 unit QHS SQ 11/04/20 21:00 11/19/20 10:32 DC 11/18/20 20:56 Insulin Human Lispro (HumaLOG) 9 units TIDWMEALS SQ 11/04/20 08:00 11/19/20 10:33 DC 11/19/20 08:00 Vitamin D (Vitamin D3) 50,000 unit WEEKLY PO 11/05/20 09:00 11/19/20 05:51 Diphenhydramine HCl (Benadryl) 50 mg PRN Q6HRS PRN PO RASH 11/05/20 11:30 11/17/20 17:46 Oxcarbazepine (Trileptal) 300 mg BID PO 11/05/20 21:00 11/07/20 16:24 DC 11/07/20 09:08 Fluvoxamine Maleate (Luvox) 50 mg QHS PO 11/05/20 21:00 11/13/20 17:24 DC 11/12/20 19:30 Levofloxacin (Levaquin) 250 mg DAILY06 PO 11/06/20 16:00 11/10/20 06:01 DC 11/10/20 05:30 Lactobacillus Rhamnosus (Culturelle) 1 cap BID PO 11/07/20 21:00 11/20/20 19:57 Olanzapine (ZyPREXA ZYDIS) 5 mg PRN Q2HR PRN PO PSYCHOSIS 11/08/20 17:00 11/17/20 17:46 Carbamazepine (TEGretol) 200 mg QHS PO 11/08/20 21:00 11/20/20 19:58 Carbamazepine (TEGretol) 100 mg DAILY PO 11/12/20 09:00 11/20/20 05:09 Fluvoxamine Maleate (Luvox) 75 mg QHS PO 11/13/20 21:00 11/16/20 17:16 DC 11/15/20 19:38 Quetiapine Fumarate (SEROquel) 50 mg DAILY PO 11/16/20 09:00 11/20/20 05:07 Quetiapine Fumarate (SEROquel) 25 mg BID@1300,1700 PO 11/16/20 13:00 11/20/20 17:18 Fluvoxamine Maleate (Luvox) 100 mg QHS PO 11/16/20 21:00 11/20/20 19:57 Insulin Glargine (Lantus Syringe) 30 unit QHS SQ 11/19/20 21:00 11/20/20 20:01 Insulin Human Lispro (HumaLOG) 12 units TIDWMEALS SQ 11/19/20 12:00 11/20/20 17:19 I have reviewed the current psychotropics carefully including drug interactions. Risk benefit ratio favors no change other than as noted in my dictated progress note. Diagnosis: Problems: (1) Obsessive compulsive disorder (2) Impulse control disorder (3) Intellectual disability (4) Bipolar affective, mixed, sev w/ psych (5) Anxiety disorder, unspecified IDA LAINEZ MD Nov 21, 2020 08:07
[2020-11-21] MEDS: POLYETHYLENE GLYCOL 3350 17 GM PACKET. PO SCH (09:00)
[2020-11-21] MEDS: LACTOBACILLUS RHAMNOSUS GG 1 CAPSULE. PO SCH ×2 (09:48→19:47)
[2020-11-21] MEDS: PANTOPRAZOLE 40 MG TABLET. PO SCH (09:48)
[2020-11-21] MEDS: QUEtiapine 50 MG TABLET. PO SCH (09:48)
[2020-11-21] MEDS: carBAMazepine 100 MG TAB.CHEW PO SCH (09:48)
[2020-11-21] MEDS: ASPIRIN CHEWABLE 81 MG TABLET. PO SCH (09:48)
[2020-11-21] MEDS: QUEtiapine 100 MG TABLET. PO SCH ×3 (09:48→19:47)
[2020-11-21] MEDS: FENOFIBRATE NANOCRYSTALLIZED 145 MG TABLET PO SCH (09:48)
[2020-11-21] MEDS: INSULIN LISPRO 300 UNITS/3 ML VIAL. SQ SCH ×3 (09:52→17:00)
--- NOTE | 2020-11-21 10:39 | NUR ---
Patient is yelling out this morning. after being redirected patient appears to be calm wandering around unit. Patient is cooperative. patient is not willing to listen to staff today.
[2020-11-21] MEDS: QUEtiapine 25 MG TABLET. PO SCH ×2 (12:21→17:31)
[2020-11-21 16:02] VITALS: BP 134/76
[2020-11-21] MEDS: carBAMazepine 200 MG TABLET PO SCH (19:47)
[2020-11-21] MEDS: MELATONIN 3 MG TABLET PO SCH (19:47)
[2020-11-21] MEDS: traZODone 100 MG TABLET. PO SCH (19:47)
[2020-11-21] MEDS: hydrOXYzine PAMOATE 25 MG CAPSULE PO PRN (19:49)
[2020-11-21] MEDS: INSULIN GLARGINE SYRINGE. SQ SCH (19:50)
--- NOTE | 2020-11-21 20:58 | PDOC ---
Exam Note: Marcelo Note: Please also refer to the separate dictated note~for this date of service dictated separately.~Patient seen individually. Discussed the patient with Nursing staff reviewed the chart.~Reviewed interim history and current functioning. Reviewed vital signs,~Labs/ Radiology~and current medications noted below. Continue current treatment with the changes noted in the dictated addendum note Assessment: Vital Signs/I&O: Vital Signs Date Time Temp Pulse Resp B/P (MAP) Pulse Ox O2 Delivery O2 Flow Rate FiO2 11/21/20 16:02 97.2 74 17 134/76 (95) 98 Room Air I & O 11/20/20 11/20/20 11/21/20 14:59 22:59 06:59 Intake Total 960 ml 1060 ml Balance 960 ml 1060 ml Labs: Laboratory Tests Test 11/21/20 07:46 11/21/20 11:25 11/21/20 16:46 11/21/20 19:08 Glucose (Fingerstick) 191 mg/dL (70-99) H 290 mg/dL (70-99) H 122 mg/dL (70-99) H 269 mg/dL (70-99) H Current Medications: Meds: Laboratory Tests Test 11/21/20 07:46 11/21/20 11:25 11/21/20 16:46 11/21/20 19:08 Glucose (Fingerstick) 191 mg/dL 290 mg/dL 122 mg/dL 269 mg/dL Current Medications Medications (Trade) Dose Ordered Sig/Carmina Route PRN Reason Start Time Stop Time Status Last Admin Dose Admin Acetaminophen (Tylenol) 650 mg PRN Q6HRS PRN PO MILD PAIN / TEMP > 100.3'F 11/03/20 23:15 Cancel Multi-Ingredient Ointment (Analgesic [place]) 1 estrellita PRN QID PRN TP MUSCLE PAIN 11/03/20 23:15 Al Hydroxide/Mg Hydroxide (Mylanta Plus Xs) 15 ml PRN AFTMEALHC PRN PO DYSPEPSIA 11/03/20 23:15 11/18/20 12:54 Magnesium Hydroxide (Milk Of Magnesia) 2,400 mg PRN QHS PRN PO CONSTIPATION 11/03/20 23:15 Levothyroxine Sodium (Synthroid) 25 mcg DAILY06 PO 11/04/20 06:00 11/21/20 05:40 Pantoprazole Sodium (Protonix) 40 mg DAILYAC PO 11/04/20 07:30 11/21/20 09:48 Acetaminophen (Tylenol) 650 mg PRN Q4HRS PRN PO PAIN 11/04/20 00:45 11/20/20 15:34 Aspirin (Aspirin Chewable) 81 mg DAILYWBKFT PO 11/04/20 08:00 11/21/20 09:48 Hydroxyzine Pamoate (Vistaril) 25 mg PRN Q6HRS PRN PO agitation/anxiety 11/04/20 00:45 11/21/20 19:49 Melatonin (Melatonin) 3 mg HS PO 11/04/20 21:00 11/21/20 19:47 Nystatin (Nystop) 1 estrellita PRN BID PRN TP RASH 11/04/20 00:45 Polyethylene Glycol (miraLAX) 17 gm DAILY PO 11/04/20 09:00 11/21/20 09:00 Quetiapine Fumarate (SEROquel) 25 mg BID PO 11/04/20 09:00 11/15/20 21:52 DC 11/15/20 19:38 Quetiapine Fumarate (SEROquel) 100 mg TID PO 11/04/20 09:00 11/21/20 19:47 Trazodone HCl (Desyrel) 100 mg HS PO 11/04/20 21:00 11/21/20 19:47 Non-Formulary Medication (Ergocalciferol (Vitamin D2) (Vitamin D2)) 1,250 mcg WEEKLY PO 11/04/20 09:00 11/04/20 15:01 DC Citalopram Hydrobromide (CeleXA) 40 mg DAILY PO 11/04/20 09:00 11/05/20 18:18 DC 11/05/20 08:22 Fenofibrate (Tricor) 145 mg DAILY PO 11/04/20 09:00 11/21/20 09:48 Non-Formulary Medication (Guanfacine Hcl ) 1 tab BID PO 11/04/20 09:00 11/08/20 18:18 DC Non-Formulary Medication (Insulin Aspart (Novolog)) 9 unit TIDWMEALS SQ 11/04/20 08:00 UNV Non-Formulary Medication (Insulin Glargine,Hum.rec.anlog (Lantus Solostar)) 20 unit QHS SQ 11/04/20 21:00 UNV Non-Formulary Medication (Menthol/Zinc Oxide (Calmoseptine Ointment)) 71 gm BID TP 11/04/20 09:00 11/04/20 14:56 DC Insulin Glargine (Lantus Syringe) 20 unit QHS SQ 11/04/20 21:00 11/19/20 10:32 DC 11/18/20 20:56 Insulin Human Lispro (HumaLOG) 9 units TIDWMEALS SQ 11/04/20 08:00 11/19/20 10:33 DC 11/19/20 08:00 Vitamin D (Vitamin D3) 50,000 unit WEEKLY PO 11/05/20 09:00 11/19/20 05:51 Diphenhydramine HCl (Benadryl) 50 mg PRN Q6HRS PRN PO RASH 11/05/20 11:30 11/17/20 17:46 Oxcarbazepine (Trileptal) 300 mg BID PO 11/05/20 21:00 11/07/20 16:24 DC 11/07/20 09:08 Fluvoxamine Maleate (Luvox) 50 mg QHS PO 11/05/20 21:00 11/13/20 17:24 DC 11/12/20 19:30 Levofloxacin (Levaquin) 250 mg DAILY06 PO 11/06/20 16:00 11/10/20 06:01 DC 11/10/20 05:30 Lactobacillus Rhamnosus (Culturelle) 1 cap BID PO 11/07/20 21:00 11/21/20 19:47 Olanzapine (ZyPREXA ZYDIS) 5 mg PRN Q2HR PRN PO PSYCHOSIS 11/08/20 17:00 11/17/20 17:46 Carbamazepine (TEGretol) 200 mg QHS PO 11/08/20 21:00 11/21/20 19:47 Carbamazepine (TEGretol) 100 mg DAILY PO 11/12/20 09:00 11/21/20 09:48 Fluvoxamine Maleate (Luvox) 75 mg QHS PO 11/13/20 21:00 11/16/20 17:16 DC 11/15/20 19:38 Quetiapine Fumarate (SEROquel) 50 mg DAILY PO 11/16/20 09:00 11/21/20 09:48 Quetiapine Fumarate (SEROquel) 25 mg BID@1300,1700 PO 11/16/20 13:00 11/21/20 17:31 Fluvoxamine Maleate (Luvox) 100 mg QHS PO 11/16/20 21:00 11/21/20 19:47 Insulin Glargine (Lantus Syringe) 30 unit QHS SQ 11/19/20 21:00 11/21/20 19:50 Insulin Human Lispro (HumaLOG) 12 units TIDWMEALS SQ 11/19/20 12:00 11/21/20 12:22 I have reviewed the current psychotropics carefully including drug interactions. Risk benefit ratio favors no change other than as noted in my dictated progress note. Diagnosis: Problems: (1) Obsessive compulsive disorder (2) Impulse control disorder (3) Intellectual disability (4) Bipolar affective, mixed, sev w/ psych IDA LAINEZ MD Nov 21, 2020 20:58
--- NOTE | 2020-11-21 23:20 | NUR ---
Pt restless this evening, alternating between the dayroom and being at the nurses station window. Pt yelling intermittently, repetitive with circular conversations. Compliant with whole medications.
[2020-11-22] MEDS: LEVOTHYROXINE 25 MCG TABLET. PO SCH (05:00)
[2020-11-22 06:29] VITALS: BP 121/53
[2020-11-22] MEDS: ASPIRIN CHEWABLE 81 MG TABLET. PO SCH (08:08)
[2020-11-22] MEDS: PANTOPRAZOLE 40 MG TABLET. PO SCH (08:08)
[2020-11-22] MEDS: QUEtiapine 50 MG TABLET. PO SCH (08:08)
[2020-11-22] MEDS: POLYETHYLENE GLYCOL 3350 17 GM PACKET. PO SCH (08:08)
[2020-11-22] MEDS: QUEtiapine 100 MG TABLET. PO SCH ×3 (08:08→19:53)
[2020-11-22] MEDS: LACTOBACILLUS RHAMNOSUS GG 1 CAPSULE. PO SCH ×2 (08:08→19:53)
[2020-11-22] MEDS: FENOFIBRATE NANOCRYSTALLIZED 145 MG TABLET PO SCH (08:08)
[2020-11-22] MEDS: carBAMazepine 100 MG TAB.CHEW PO SCH (08:09)
[2020-11-22] MEDS: INSULIN LISPRO 300 UNITS/3 ML VIAL. SQ SCH ×3 (08:11→17:24)
[2020-11-22] MEDS: QUEtiapine 25 MG TABLET. PO SCH ×2 (12:19→17:23)
[2020-11-22 15:17] VITALS: BP 131/86
--- NOTE | 2020-11-22 17:33 | NUR ---
Nursing note: Pt has been in her room for most of the shift, but has spent some time in the day room for groups and to watch TV. She has been med compliant, but demanding at times for help in ADLs that she is capable of doing on her own. Pt has yelled out intermittently throughout the shift and demanded to call Ricky. She is able to be redirected. Will continue to monitor.
[2020-11-22] MEDS: MELATONIN 3 MG TABLET PO SCH (19:53)
[2020-11-22] MEDS: traZODone 100 MG TABLET. PO SCH (19:53)
[2020-11-22] MEDS: carBAMazepine 200 MG TABLET PO SCH (19:53)
[2020-11-22] MEDS: hydrOXYzine PAMOATE 25 MG CAPSULE PO PRN (19:54)
--- NOTE | 2020-11-22 21:09 | PDOC ---
Exam Note: Marcelo Note: This note is a late entry for 11/21/2020 covers elements not covered in my initial note. Subjective: The patient was seen on telehealth rounds in the evening of 11/21/2020 with Ferny HOLLINGSWORTH, reviewed the chart. 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 Reportedly she had a telephone call with her sister though the patient denies this and she has been quieter since then. Review of Systems: Ambulation impaired with walker. No CV, , pulmonary, eye system symptoms on review. Mental Status Exam: The patient is oriented to herself and situation. Speech is coherent, somewhat high pitched, less pressured. Abstraction is fair. Computation is impaired. Language function intact. Attention span is short. Mood and affect somewhat withdrawn. No suicidal or homicidal ideation. Laboratory Data: Reviewed. Impression: Bipolar 1 disorder mixed with psychotic features. OCD. Anxiety disorder unspecified. Impulse control disorder unspecified. Plan: Continue psychotropics from initial note. Assessment: Vital Signs/I&O: Vital Signs Date Time Temp Pulse Resp B/P (MAP) Pulse Ox O2 Delivery O2 Flow Rate FiO2 11/22/20 15:17 98.0 89 17 131/86 (101) 95 11/21/20 16:02 Room Air I & O 11/21/20 11/21/20 11/22/20 15:00 23:00 07:00 Intake Total 600 ml 480 ml Balance 600 ml 480 ml Labs: Laboratory Tests Test 11/22/20 07:18 11/22/20 12:00 11/22/20 16:52 11/22/20 19:04 Glucose (Fingerstick) 180 mg/dL (70-99) H 215 mg/dL (70-99) H 123 mg/dL (70-99) H 208 mg/dL (70-99) H Current Medications: Meds: Laboratory Tests Test 11/22/20 07:18 11/22/20 12:00 11/22/20 16:52 11/22/20 19:04 Glucose (Fingerstick) 180 mg/dL 215 mg/dL 123 mg/dL 208 mg/dL Current Medications Medications (Trade) Dose Ordered Sig/Carmina Route PRN Reason Start Time Stop Time Status Last Admin Dose Admin Acetaminophen (Tylenol) 650 mg PRN Q6HRS PRN PO MILD PAIN / TEMP > 100.3'F 11/03/20 23:15 Cancel Multi-Ingredient Ointment (Analgesic [place]) 1 estrellita PRN QID PRN TP MUSCLE PAIN 11/03/20 23:15 Al Hydroxide/Mg Hydroxide (Mylanta Plus Xs) 15 ml PRN AFTMEALHC PRN PO DYSPEPSIA 11/03/20 23:15 11/18/20 12:54 Magnesium Hydroxide (Milk Of Magnesia) 2,400 mg PRN QHS PRN PO CONSTIPATION 11/03/20 23:15 Levothyroxine Sodium (Synthroid) 25 mcg DAILY06 PO 11/04/20 06:00 11/22/20 05:00 Pantoprazole Sodium (Protonix) 40 mg DAILYAC PO 11/04/20 07:30 11/22/20 08:08 Acetaminophen (Tylenol) 650 mg PRN Q4HRS PRN PO PAIN 11/04/20 00:45 11/20/20 15:34 Aspirin (Aspirin Chewable) 81 mg DAILYWBKFT PO 11/04/20 08:00 11/22/20 08:08 Hydroxyzine Pamoate (Vistaril) 25 mg PRN Q6HRS PRN PO agitation/anxiety 11/04/20 00:45 11/22/20 19:54 Melatonin (Melatonin) 3 mg HS PO 11/04/20 21:00 11/22/20 19:53 Nystatin (Nystop) 1 estrellita PRN BID PRN TP RASH 11/04/20 00:45 Polyethylene Glycol (miraLAX) 17 gm DAILY PO 11/04/20 09:00 11/22/20 08:08 Quetiapine Fumarate (SEROquel) 25 mg BID PO 11/04/20 09:00 11/15/20 21:52 DC 11/15/20 19:38 Quetiapine Fumarate (SEROquel) 100 mg TID PO 11/04/20 09:00 11/22/20 19:53 Trazodone HCl (Desyrel) 100 mg HS PO 11/04/20 21:00 11/22/20 19:53 Non-Formulary Medication (Ergocalciferol (Vitamin D2) (Vitamin D2)) 1,250 mcg WEEKLY PO 11/04/20 09:00 11/04/20 15:01 DC Citalopram Hydrobromide (CeleXA) 40 mg DAILY PO 11/04/20 09:00 11/05/20 18:18 DC 11/05/20 08:22 Fenofibrate (Tricor) 145 mg DAILY PO 11/04/20 09:00 11/22/20 08:08 Non-Formulary Medication (Guanfacine Hcl ) 1 tab BID PO 11/04/20 09:00 11/08/20 18:18 DC Non-Formulary Medication (Insulin Aspart (Novolog)) 9 unit TIDWMEALS SQ 11/04/20 08:00 UNV Non-Formulary Medication (Insulin Glargine,Hum.rec.anlog (Lantus Solostar)) 20 unit QHS SQ 11/04/20 21:00 UNV Non-Formulary Medication (Menthol/Zinc Oxide (Calmoseptine Ointment)) 71 gm BID TP 11/04/20 09:00 11/04/20 14:56 DC Insulin Glargine (Lantus Syringe) 20 unit QHS SQ 11/04/20 21:00 11/19/20 10:32 DC 11/18/20 20:56 Insulin Human Lispro (HumaLOG) 9 units TIDWMEALS SQ 11/04/20 08:00 11/19/20 10:33 DC 11/19/20 08:00 Vitamin D (Vitamin D3) 50,000 unit WEEKLY PO 11/05/20 09:00 11/19/20 05:51 Diphenhydramine HCl (Benadryl) 50 mg PRN Q6HRS PRN PO RASH 11/05/20 11:30 11/17/20 17:46 Oxcarbazepine (Trileptal) 300 mg BID PO 11/05/20 21:00 11/07/20 16:24 DC 11/07/20 09:08 Fluvoxamine Maleate (Luvox) 50 mg QHS PO 11/05/20 21:00 11/13/20 17:24 DC 11/12/20 19:30 Levofloxacin (Levaquin) 250 mg DAILY06 PO 11/06/20 16:00 11/10/20 06:01 DC 11/10/20 05:30 Lactobacillus Rhamnosus (Culturelle) 1 cap BID PO 11/07/20 21:00 11/22/20 19:53 Olanzapine (ZyPREXA ZYDIS) 5 mg PRN Q2HR PRN PO PSYCHOSIS 11/08/20 17:00 11/17/20 17:46 Carbamazepine (TEGretol) 200 mg QHS PO 11/08/20 21:00 11/22/20 19:53 Carbamazepine (TEGretol) 100 mg DAILY PO 11/12/20 09:00 11/22/20 08:09 Fluvoxamine Maleate (Luvox) 75 mg QHS PO 11/13/20 21:00 11/16/20 17:16 DC 11/15/20 19:38 Quetiapine Fumarate (SEROquel) 50 mg DAILY PO 11/16/20 09:00 11/22/20 08:08 Quetiapine Fumarate (SEROquel) 25 mg BID@1300,1700 PO 11/16/20 13:00 11/22/20 17:23 Fluvoxamine Maleate (Luvox) 100 mg QHS PO 11/16/20 21:00 11/22/20 19:53 Insulin Glargine (Lantus Syringe) 30 unit QHS SQ 11/19/20 21:00 11/21/20 19:50 Insulin Human Lispro (HumaLOG) 12 units TIDWMEALS SQ 11/19/20 12:00 11/22/20 17:24 I have reviewed the current psychotropics carefully including drug interactions. Risk benefit ratio favors no change other than as noted in my dictated progress note. Diagnosis: Problems: (1) Bipolar affective, mixed, sev w/ psych (2) Anxiety disorder, unspecified (3) Intellectual disability (4) Impulse control disorder (5) Obsessive compulsive disorder IDA LAINEZ MD Nov 22, 2020 21:09
[2020-11-22] MEDS: INSULIN GLARGINE SYRINGE. SQ SCH (21:14)
--- NOTE | 2020-11-22 21:31 | PDOC ---
Exam Note: Marcelo Note: Please also refer to the separate dictated note~for this date of service dictated separately.~Patient seen individually. Discussed the patient with Nursing staff reviewed the chart.~Reviewed interim history and current functioning. Reviewed vital signs,~Labs/ Radiology~and current medications noted below. Continue current treatment with the changes noted in the dictated addendum note Assessment: Vital Signs/I&O: Vital Signs Date Time Temp Pulse Resp B/P (MAP) Pulse Ox O2 Delivery O2 Flow Rate FiO2 11/22/20 15:17 98.0 89 17 131/86 (101) 95 11/21/20 16:02 Room Air I & O 11/21/20 11/21/20 11/22/20 15:00 23:00 07:00 Intake Total 600 ml 480 ml Balance 600 ml 480 ml Labs: Laboratory Tests Test 11/22/20 07:18 11/22/20 12:00 11/22/20 16:52 11/22/20 19:04 Glucose (Fingerstick) 180 mg/dL (70-99) H 215 mg/dL (70-99) H 123 mg/dL (70-99) H 208 mg/dL (70-99) H Current Medications: I have reviewed the current psychotropics carefully including drug interactions. Risk benefit ratio favors no change other than as noted in my dictated progress note. Diagnosis: Problems: (1) Bipolar affective, mixed, sev w/ psych (2) Anxiety disorder, unspecified (3) Intellectual disability (4) Impulse control disorder (5) Obsessive compulsive disorder IDA LAINEZ MD Nov 22, 2020 21:31
--- NOTE | 2020-11-22 23:51 | NUR ---
Pt highly agitated this evening. Repeatedly yelling, cursing and calling staff names. Pt unable to be redirected. Compliant with whole medications.
[2020-11-23] MEDS: LEVOTHYROXINE 25 MCG TABLET. PO SCH (05:26)
[2020-11-23 06:18] VITALS: BP 128/79
[2020-11-23] MEDS: QUEtiapine 100 MG TABLET. PO SCH ×3 (07:55→20:05)
[2020-11-23] MEDS: LACTOBACILLUS RHAMNOSUS GG 1 CAPSULE. PO SCH ×2 (07:55→20:05)
[2020-11-23] MEDS: FENOFIBRATE NANOCRYSTALLIZED 145 MG TABLET PO SCH (07:55)
[2020-11-23] MEDS: ASPIRIN CHEWABLE 81 MG TABLET. PO SCH (07:55)
[2020-11-23] MEDS: POLYETHYLENE GLYCOL 3350 17 GM PACKET. PO SCH (07:55)
[2020-11-23] MEDS: QUEtiapine 50 MG TABLET. PO SCH (07:55)
[2020-11-23] MEDS: PANTOPRAZOLE 40 MG TABLET. PO SCH (07:56)
[2020-11-23] MEDS: carBAMazepine 100 MG TAB.CHEW PO SCH (07:57)
[2020-11-23] MEDS: INSULIN LISPRO 300 UNITS/3 ML VIAL. SQ SCH ×3 (08:00→17:24)
--- NOTE | 2020-11-23 08:32 | PDOC ---
Exam Note: Marcelo Note: This note is a late entry for 11/22/2020 covers elements not covered in my initial note. Subjective: The patient was seen face to face in the evening of 11/22/2020 with Sweta HOLLINGSWORTH, reviewed the chart. The patient slept 7 hours previous night. The patient has some occasional yelling but more redirectable. She followed me around the unit after I had met with her for an extended period of time on rounds in the evening. She had the same repetitive obsessive question if she can be discharged on 12/07. Review of Systems: Ambulation impaired with walker. No CV, , pulmonary, eye system symptoms on review. Mental Status Exam: The patient is oriented to herself and situation. Speech has some latency, can be loud, rapid at times. Abstraction is fair. Computation is impaired. Language function intact. Attention span is short. Mood and affect somewhat withdrawn. No suicidal or homicidal ideation. Laboratory Data: Reviewed. Impression: Bipolar 1 disorder mixed with psychotic features. OCD. Anxiety disorder unspecified. Impulse control disorder unspecified. Plan: Continue psychotropics from initial note. Assessment: Vital Signs/I&O: Vital Signs Date Time Temp Pulse Resp B/P (MAP) Pulse Ox O2 Delivery O2 Flow Rate FiO2 11/23/20 06:18 97.2 80 20 128/79 (95) 93 11/21/20 16:02 Room Air I & O 11/22/20 11/22/20 11/23/20 15:00 23:00 07:00 Intake Total 720 ml 600 ml Balance 720 ml 600 ml Labs: Laboratory Tests Test 11/22/20 12:00 11/22/20 16:52 11/22/20 19:04 11/23/20 07:45 Glucose (Fingerstick) 215 mg/dL (70-99) H 123 mg/dL (70-99) H 208 mg/dL (70-99) H 127 mg/dL (70-99) H Current Medications: Meds: Laboratory Tests Test 11/22/20 12:00 11/22/20 16:52 11/22/20 19:04 11/23/20 07:45 Glucose (Fingerstick) 215 mg/dL 123 mg/dL 208 mg/dL 127 mg/dL Current Medications Medications (Trade) Dose Ordered Sig/Carmina Route PRN Reason Start Time Stop Time Status Last Admin Dose Admin Acetaminophen (Tylenol) 650 mg PRN Q6HRS PRN PO MILD PAIN / TEMP > 100.3'F 11/03/20 23:15 Cancel Multi-Ingredient Ointment (Analgesic [place]) 1 estrellita PRN QID PRN TP MUSCLE PAIN 11/03/20 23:15 Al Hydroxide/Mg Hydroxide (Mylanta Plus Xs) 15 ml PRN AFTMEALHC PRN PO DYSPEPSIA 11/03/20 23:15 11/18/20 12:54 Magnesium Hydroxide (Milk Of Magnesia) 2,400 mg PRN QHS PRN PO CONSTIPATION 11/03/20 23:15 Levothyroxine Sodium (Synthroid) 25 mcg DAILY06 PO 11/04/20 06:00 11/23/20 05:26 Pantoprazole Sodium (Protonix) 40 mg DAILYAC PO 11/04/20 07:30 11/23/20 07:56 Acetaminophen (Tylenol) 650 mg PRN Q4HRS PRN PO PAIN 11/04/20 00:45 11/20/20 15:34 Aspirin (Aspirin Chewable) 81 mg DAILYWBKFT PO 11/04/20 08:00 11/23/20 07:55 Hydroxyzine Pamoate (Vistaril) 25 mg PRN Q6HRS PRN PO agitation/anxiety 11/04/20 00:45 11/22/20 19:54 Melatonin (Melatonin) 3 mg HS PO 11/04/20 21:00 11/22/20 19:53 Nystatin (Nystop) 1 estrellita PRN BID PRN TP RASH 11/04/20 00:45 Polyethylene Glycol (miraLAX) 17 gm DAILY PO 11/04/20 09:00 11/23/20 07:55 Quetiapine Fumarate (SEROquel) 25 mg BID PO 11/04/20 09:00 11/15/20 21:52 DC 11/15/20 19:38 Quetiapine Fumarate (SEROquel) 100 mg TID PO 11/04/20 09:00 11/23/20 07:55 Trazodone HCl (Desyrel) 100 mg HS PO 11/04/20 21:00 11/22/20 19:53 Non-Formulary Medication (Ergocalciferol (Vitamin D2) (Vitamin D2)) 1,250 mcg WEEKLY PO 11/04/20 09:00 11/04/20 15:01 DC Citalopram Hydrobromide (CeleXA) 40 mg DAILY PO 11/04/20 09:00 11/05/20 18:18 DC 11/05/20 08:22 Fenofibrate (Tricor) 145 mg DAILY PO 11/04/20 09:00 11/23/20 07:55 Non-Formulary Medication (Guanfacine Hcl ) 1 tab BID PO 11/04/20 09:00 11/08/20 18:18 DC Non-Formulary Medication (Insulin Aspart (Novolog)) 9 unit TIDWMEALS SQ 11/04/20 08:00 UNV Non-Formulary Medication (Insulin Glargine,Hum.rec.anlog (Lantus Solostar)) 20 unit QHS SQ 11/04/20 21:00 UNV Non-Formulary Medication (Menthol/Zinc Oxide (Calmoseptine Ointment)) 71 gm BID TP 11/04/20 09:00 11/04/20 14:56 DC Insulin Glargine (Lantus Syringe) 20 unit QHS SQ 11/04/20 21:00 11/19/20 10:32 DC 11/18/20 20:56 Insulin Human Lispro (HumaLOG) 9 units TIDWMEALS SQ 11/04/20 08:00 11/19/20 10:33 DC 11/19/20 08:00 Vitamin D (Vitamin D3) 50,000 unit WEEKLY PO 11/05/20 09:00 11/19/20 05:51 Diphenhydramine HCl (Benadryl) 50 mg PRN Q6HRS PRN PO RASH 11/05/20 11:30 11/17/20 17:46 Oxcarbazepine (Trileptal) 300 mg BID PO 11/05/20 21:00 11/07/20 16:24 DC 11/07/20 09:08 Fluvoxamine Maleate (Luvox) 50 mg QHS PO 11/05/20 21:00 11/13/20 17:24 DC 11/12/20 19:30 Levofloxacin (Levaquin) 250 mg DAILY06 PO 11/06/20 16:00 11/10/20 06:01 DC 11/10/20 05:30 Lactobacillus Rhamnosus (Culturelle) 1 cap BID PO 11/07/20 21:00 11/23/20 07:55 Olanzapine (ZyPREXA ZYDIS) 5 mg PRN Q2HR PRN PO PSYCHOSIS 11/08/20 17:00 11/17/20 17:46 Carbamazepine (TEGretol) 200 mg QHS PO 11/08/20 21:00 11/22/20 19:53 Carbamazepine (TEGretol) 100 mg DAILY PO 11/12/20 09:00 11/23/20 07:57 Fluvoxamine Maleate (Luvox) 75 mg QHS PO 11/13/20 21:00 11/16/20 17:16 DC 11/15/20 19:38 Quetiapine Fumarate (SEROquel) 50 mg DAILY PO 11/16/20 09:00 11/23/20 07:55 Quetiapine Fumarate (SEROquel) 25 mg BID@1300,1700 PO 11/16/20 13:00 11/22/20 17:23 Fluvoxamine Maleate (Luvox) 100 mg QHS PO 11/16/20 21:00 11/22/20 19:53 Insulin Glargine (Lantus Syringe) 30 unit QHS SQ 11/19/20 21:00 11/22/20 21:14 Insulin Human Lispro (HumaLOG) 12 units TIDWMEALS SQ 11/19/20 12:00 11/23/20 08:00 I have reviewed the current psychotropics carefully including drug interactions. Risk benefit ratio favors no change other than as noted in my dictated progress note. Diagnosis: Problems: (1) Impulse control disorder (2) Intellectual disability (3) Bipolar affective, mixed, sev w/ psych (4) Anxiety disorder, unspecified (5) Obsessive compulsive disorder IDA LAINEZ MD Nov 23, 2020 08:32
--- NOTE | 2020-11-23 09:55 | NUR ---
Nursing note: Pt in her room for AM med pass and assessment. She is med compliant and cooperative. Pt denies having any pain this morning. She has occasionally yelled out for help but is able to be redirected. She is currently sleeping in the chair in her room. Will continue to monitor.
[2020-11-23] MEDS: QUEtiapine 25 MG TABLET. PO SCH ×2 (12:42→17:22)
[2020-11-23 15:50] VITALS: BP 123/71
[2020-11-23] MEDS: MAG HYDROX/AL HYDROX/SIMETH 30 ML ORAL.SUSP PO PRN (16:07)
[2020-11-23] MEDS: traZODone 50 MG TABLET. PO SCH (17:21)
[2020-11-23] MEDS: ACETAMINOPHEN 325 MG TABLET PO PRN (17:22)
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
[2020-11-23] MEDS: traZODone 100 MG TABLET. PO SCH (20:05)
[2020-11-23] MEDS: MELATONIN 3 MG TABLET PO SCH (20:05)
[2020-11-23] MEDS: carBAMazepine 200 MG TABLET PO SCH (20:05)
[2020-11-23] MEDS: hydrOXYzine PAMOATE 25 MG CAPSULE PO PRN (20:07)
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
--- NOTE | 2020-11-23 20:56 | PDOC ---
Exam Note: Marcelo Note: Please also refer to the separate dictated note~for this date of service dictated separately.~Patient seen individually. Discussed the patient with Nursing staff reviewed the chart.~Reviewed interim history and current functioning. Reviewed vital signs,~Labs/ Radiology~and current medications noted below. Continue current treatment with the changes noted in the dictated addendum note Assessment: Vital Signs/I&O: Vital Signs Date Time Temp Pulse Resp B/P (MAP) Pulse Ox O2 Delivery O2 Flow Rate FiO2 11/23/20 15:50 97.1 86 20 123/71 (88) 94 11/21/20 16:02 Room Air I & O 11/22/20 11/22/20 11/23/20 15:00 23:00 07:00 Intake Total 720 ml 600 ml Balance 720 ml 600 ml Labs: Laboratory Tests Test 11/23/20 07:45 11/23/20 11:48 11/23/20 16:43 11/23/20 19:10 Glucose (Fingerstick) 127 mg/dL (70-99) H 249 mg/dL (70-99) H 123 mg/dL (70-99) H 116 mg/dL (70-99) H Current Medications: Meds: Laboratory Tests Test 11/23/20 07:45 11/23/20 11:48 11/23/20 16:43 11/23/20 19:10 Glucose (Fingerstick) 127 mg/dL 249 mg/dL 123 mg/dL 116 mg/dL Current Medications Medications (Trade) Dose Ordered Sig/Carmina Route PRN Reason Start Time Stop Time Status Last Admin Dose Admin Acetaminophen (Tylenol) 650 mg PRN Q6HRS PRN PO MILD PAIN / TEMP > 100.3'F 11/03/20 23:15 Cancel Multi-Ingredient Ointment (Analgesic [place]) 1 estrellita PRN QID PRN TP MUSCLE PAIN 11/03/20 23:15 Al Hydroxide/Mg Hydroxide (Mylanta Plus Xs) 15 ml PRN AFTMEALHC PRN PO DYSPEPSIA 11/03/20 23:15 11/23/20 16:07 Magnesium Hydroxide (Milk Of Magnesia) 2,400 mg PRN QHS PRN PO CONSTIPATION 11/03/20 23:15 Levothyroxine Sodium (Synthroid) 25 mcg DAILY06 PO 11/04/20 06:00 11/23/20 05:26 Pantoprazole Sodium (Protonix) 40 mg DAILYAC PO 11/04/20 07:30 11/23/20 07:56 Acetaminophen (Tylenol) 650 mg PRN Q4HRS PRN PO PAIN 11/04/20 00:45 11/23/20 17:22 Aspirin (Aspirin Chewable) 81 mg DAILYWBKFT PO 11/04/20 08:00 11/23/20 07:55 Hydroxyzine Pamoate (Vistaril) 25 mg PRN Q6HRS PRN PO agitation/anxiety 11/04/20 00:45 11/23/20 20:07 Melatonin (Melatonin) 3 mg HS PO 11/04/20 21:00 11/23/20 20:05 Nystatin (Nystop) 1 estrellita PRN BID PRN TP RASH 11/04/20 00:45 Polyethylene Glycol (miraLAX) 17 gm DAILY PO 11/04/20 09:00 11/23/20 07:55 Quetiapine Fumarate (SEROquel) 25 mg BID PO 11/04/20 09:00 11/15/20 21:52 DC 11/15/20 19:38 Quetiapine Fumarate (SEROquel) 100 mg TID PO 11/04/20 09:00 11/23/20 20:05 Trazodone HCl (Desyrel) 100 mg HS PO 11/04/20 21:00 11/23/20 20:05 Non-Formulary Medication (Ergocalciferol (Vitamin D2) (Vitamin D2)) 1,250 mcg WEEKLY PO 11/04/20 09:00 11/04/20 15:01 DC Citalopram Hydrobromide (CeleXA) 40 mg DAILY PO 11/04/20 09:00 11/05/20 18:18 DC 11/05/20 08:22 Fenofibrate (Tricor) 145 mg DAILY PO 11/04/20 09:00 11/23/20 07:55 Non-Formulary Medication (Guanfacine Hcl ) 1 tab BID PO 11/04/20 09:00 11/08/20 18:18 DC Non-Formulary Medication (Insulin Aspart (Novolog)) 9 unit TIDWMEALS SQ 11/04/20 08:00 UNV Non-Formulary Medication (Insulin Glargine,Hum.rec.anlog (Lantus Solostar)) 20 unit QHS SQ 11/04/20 21:00 UNV Non-Formulary Medication (Menthol/Zinc Oxide (Calmoseptine Ointment)) 71 gm BID TP 11/04/20 09:00 11/04/20 14:56 DC Insulin Glargine (Lantus Syringe) 20 unit QHS SQ 11/04/20 21:00 11/19/20 10:32 DC 11/18/20 20:56 Insulin Human Lispro (HumaLOG) 9 units TIDWMEALS SQ 11/04/20 08:00 11/19/20 10:33 DC 11/19/20 08:00 Vitamin D (Vitamin D3) 50,000 unit WEEKLY PO 11/05/20 09:00 11/19/20 05:51 Diphenhydramine HCl (Benadryl) 50 mg PRN Q6HRS PRN PO RASH 11/05/20 11:30 11/17/20 17:46 Oxcarbazepine (Trileptal) 300 mg BID PO 11/05/20 21:00 11/07/20 16:24 DC 11/07/20 09:08 Fluvoxamine Maleate (Luvox) 50 mg QHS PO 11/05/20 21:00 11/13/20 17:24 DC 11/12/20 19:30 Levofloxacin (Levaquin) 250 mg DAILY06 PO 11/06/20 16:00 11/10/20 06:01 DC 11/10/20 05:30 Lactobacillus Rhamnosus (Culturelle) 1 cap BID PO 11/07/20 21:00 11/23/20 20:05 Olanzapine (ZyPREXA ZYDIS) 5 mg PRN Q2HR PRN PO PSYCHOSIS 11/08/20 17:00 11/23/20 20:07 Carbamazepine (TEGretol) 200 mg QHS PO 11/08/20 21:00 11/23/20 20:05 Carbamazepine (TEGretol) 100 mg DAILY PO 11/12/20 09:00 11/23/20 07:57 Fluvoxamine Maleate (Luvox) 75 mg QHS PO 11/13/20 21:00 11/16/20 17:16 DC 11/15/20 19:38 Quetiapine Fumarate (SEROquel) 50 mg DAILY PO 11/16/20 09:00 11/23/20 07:55 Quetiapine Fumarate (SEROquel) 25 mg BID@1300,1700 PO 11/16/20 13:00 11/23/20 17:22 Fluvoxamine Maleate (Luvox) 100 mg QHS PO 11/16/20 21:00 11/23/20 20:04 Insulin Glargine (Lantus Syringe) 30 unit QHS SQ 11/19/20 21:00 11/22/20 21:14 Insulin Human Lispro (HumaLOG) 12 units TIDWMEALS SQ 11/19/20 12:00 11/23/20 17:24 Trazodone HCl (Desyrel) 25 mg 1700 PO 11/24/20 17:00 11/23/20 17:15 DC Trazodone HCl (Desyrel) 25 mg 1700 PO 11/23/20 17:15 11/23/20 17:21 Current Medications Medications (Trade) Dose Ordered Sig/Carmina Route PRN Reason Start Time Stop Time Status Last Admin Dose Admin Trazodone HCl (Desyrel) 25 mg 1700 PO 11/23/20 17:15 11/23/20 17:21 I have reviewed the current psychotropics carefully including drug interactions. Risk benefit ratio favors no change other than as noted in my dictated progress note. Diagnosis: Problems: (1) Obsessive compulsive disorder (2) Impulse control disorder (3) Anxiety disorder, unspecified (4) Bipolar affective, mixed, sev w/ psych IDA LAINEZ MD Nov 23, 2020 20:56
[2020-11-23] MEDS: INSULIN GLARGINE SYRINGE. SQ SCH (21:09)
--- NOTE | 2020-11-23 21:54 | NUR ---
Nursing Note Pt was in jhaveri yelling for 20 minutes, told her to please go to her room, then she turned balled up her fists and stated "You shut up you stupid pig you're not the boss of my, I don't have to listen to you!". Pt wandered to the other nurses station, then returned passed me in the jhaveri asking if I was mad at her, said she loved me very much, then called me a stupid bitch. Pt continues to scream non stop down the hallway.
[2020-11-23] MEDS: traZODone 50 MG TABLET. PO PRN (22:03)
--- NOTE | 2020-11-23 22:08 | NUR ---
Patient is in bed yelling "I want to call Ricky" and "help me". She has been verbally redirected multiple times. She continues to tell this nurse she needs to talk to Dr Marvin because this nurse is not her boss. PRN trazodone given for insomnia, PRN zyprexa given for agitation and adverse behaviors. Will continue to monitor.
[2020-11-24] MEDS: LEVOTHYROXINE 25 MCG TABLET. PO SCH (05:35)
[2020-11-24 05:57] VITALS: BP 107/71
[2020-11-24] MEDS: QUEtiapine 50 MG TABLET. PO SCH (07:55)
[2020-11-24] MEDS: carBAMazepine 100 MG TAB.CHEW PO SCH (07:55)
[2020-11-24] MEDS: LACTOBACILLUS RHAMNOSUS GG 1 CAPSULE. PO SCH ×2 (07:55→20:42)
[2020-11-24] MEDS: POLYETHYLENE GLYCOL 3350 17 GM PACKET. PO SCH (07:55)
[2020-11-24] MEDS: FENOFIBRATE NANOCRYSTALLIZED 145 MG TABLET PO SCH (07:55)
[2020-11-24] MEDS: QUEtiapine 100 MG TABLET. PO SCH ×3 (07:55→20:43)
[2020-11-24] MEDS: PANTOPRAZOLE 40 MG TABLET. PO SCH (07:55)
[2020-11-24] MEDS: ASPIRIN CHEWABLE 81 MG TABLET. PO SCH (07:55)
[2020-11-24] MEDS: INSULIN LISPRO 300 UNITS/3 ML VIAL. SQ SCH ×3 (07:58→17:31)
--- NOTE | 2020-11-24 08:30 | PDOC ---
Exam Note: Marcelo Note: This note is a late entry for 11/23/2020 covers elements not covered in my initial note. Subjective: The patient was seen on telehealth rounds in the evening of 11/23/2020 with Sweta HOLLINGSWORTH, discussed and reviewed the chart. The patient slept 7-1/2 hours previous night. The patient has had a very difficult previous night and then again this evening. She has been attempting to punch at staff grabbing and trying to punch another patient, hitting, anxious, labile, repetitive, and loud. Review of Systems: Ambulation impaired with walker. No CV, , pulmonary, eye, ENT system symptoms on review. Mental Status Exam: The patient is oriented to herself and situation. Speech coherent, rapid at times. Abstraction is fair. Computation is impaired. Language function intact. Attention span is short. Mood and affect remains labile. No suicidal or homicidal ideation. Laboratory Data: Reviewed. Impression: Bipolar 1 disorder mixed with psychotic features. OCD. Anxiety disorder unspecified. Impulse control disorder unspecified. Plan: We are gradually adjusting the Luvox for her OCD symptoms. Rest psychotropics unchanged from initial note. She gets more agitated around 5 p.m. We will start scheduled trazodone 25 mg at 5 p.m. and then 50 mg h.s. p.r.n., may repeat x1 for insomnia. Assessment: Vital Signs/I&O: Vital Signs Date Time Temp Pulse Resp B/P (MAP) Pulse Ox O2 Delivery O2 Flow Rate FiO2 11/24/20 05:57 97.8 90 18 107/71 (83) 93 11/21/20 16:02 Room Air I & O 11/23/20 11/23/20 11/24/20 15:00 23:00 07:00 Intake Total 720 ml 480 ml Balance 720 ml 480 ml Labs: Laboratory Tests Test 11/23/20 11:48 11/23/20 16:43 11/23/20 19:10 Glucose (Fingerstick) 249 mg/dL (70-99) H 123 mg/dL (70-99) H 116 mg/dL (70-99) H Current Medications: Meds: Laboratory Tests Test 11/23/20 11:48 11/23/20 16:43 11/23/20 19:10 Glucose (Fingerstick) 249 mg/dL 123 mg/dL 116 mg/dL Current Medications Medications (Trade) Dose Ordered Sig/Carmina Route PRN Reason Start Time Stop Time Status Last Admin Dose Admin Acetaminophen (Tylenol) 650 mg PRN Q6HRS PRN PO MILD PAIN / TEMP > 100.3'F 11/03/20 23:15 Cancel Multi-Ingredient Ointment (Analgesic [place]) 1 estrellita PRN QID PRN TP MUSCLE PAIN 11/03/20 23:15 Al Hydroxide/Mg Hydroxide (Mylanta Plus Xs) 15 ml PRN AFTMEALHC PRN PO DYSPEPSIA 11/03/20 23:15 11/23/20 16:07 Magnesium Hydroxide (Milk Of Magnesia) 2,400 mg PRN QHS PRN PO CONSTIPATION 11/03/20 23:15 Levothyroxine Sodium (Synthroid) 25 mcg DAILY06 PO 11/04/20 06:00 11/24/20 05:35 Pantoprazole Sodium (Protonix) 40 mg DAILYAC PO 11/04/20 07:30 11/24/20 07:55 Acetaminophen (Tylenol) 650 mg PRN Q4HRS PRN PO PAIN 11/04/20 00:45 11/23/20 17:22 Aspirin (Aspirin Chewable) 81 mg DAILYWBKFT PO 11/04/20 08:00 11/24/20 07:55 Hydroxyzine Pamoate (Vistaril) 25 mg PRN Q6HRS PRN PO agitation/anxiety 11/04/20 00:45 11/23/20 20:07 Melatonin (Melatonin) 3 mg HS PO 11/04/20 21:00 11/23/20 20:05 Nystatin (Nystop) 1 estrellita PRN BID PRN TP RASH 11/04/20 00:45 Polyethylene Glycol (miraLAX) 17 gm DAILY PO 11/04/20 09:00 11/24/20 07:55 Quetiapine Fumarate (SEROquel) 25 mg BID PO 11/04/20 09:00 11/15/20 21:52 DC 11/15/20 19:38 Quetiapine Fumarate (SEROquel) 100 mg TID PO 11/04/20 09:00 11/24/20 07:55 Trazodone HCl (Desyrel) 100 mg HS PO 11/04/20 21:00 11/23/20 20:05 Non-Formulary Medication (Ergocalciferol (Vitamin D2) (Vitamin D2)) 1,250 mcg WEEKLY PO 11/04/20 09:00 11/04/20 15:01 DC Citalopram Hydrobromide (CeleXA) 40 mg DAILY PO 11/04/20 09:00 11/05/20 18:18 DC 11/05/20 08:22 Fenofibrate (Tricor) 145 mg DAILY PO 11/04/20 09:00 11/24/20 07:55 Non-Formulary Medication (Guanfacine Hcl ) 1 tab BID PO 11/04/20 09:00 11/08/20 18:18 DC Non-Formulary Medication (Insulin Aspart (Novolog)) 9 unit TIDWMEALS SQ 11/04/20 08:00 UNV Non-Formulary Medication (Insulin Glargine,Hum.rec.anlog (Lantus Solostar)) 20 unit QHS SQ 11/04/20 21:00 UNV Non-Formulary Medication (Menthol/Zinc Oxide (Calmoseptine Ointment)) 71 gm BID TP 11/04/20 09:00 11/04/20 14:56 DC Insulin Glargine (Lantus Syringe) 20 unit QHS SQ 11/04/20 21:00 11/19/20 10:32 DC 11/18/20 20:56 Insulin Human Lispro (HumaLOG) 9 units TIDWMEALS SQ 11/04/20 08:00 11/19/20 10:33 DC 11/19/20 08:00 Vitamin D (Vitamin D3) 50,000 unit WEEKLY PO 11/05/20 09:00 11/19/20 05:51 Diphenhydramine HCl (Benadryl) 50 mg PRN Q6HRS PRN PO RASH 11/05/20 11:30 11/17/20 17:46 Oxcarbazepine (Trileptal) 300 mg BID PO 11/05/20 21:00 11/07/20 16:24 DC 11/07/20 09:08 Fluvoxamine Maleate (Luvox) 50 mg QHS PO 11/05/20 21:00 11/13/20 17:24 DC 11/12/20 19:30 Levofloxacin (Levaquin) 250 mg DAILY06 PO 11/06/20 16:00 11/10/20 06:01 DC 11/10/20 05:30 Lactobacillus Rhamnosus (Culturelle) 1 cap BID PO 11/07/20 21:00 11/24/20 07:55 Olanzapine (ZyPREXA ZYDIS) 5 mg PRN Q2HR PRN PO PSYCHOSIS 11/08/20 17:00 11/23/20 22:03 Carbamazepine (TEGretol) 200 mg QHS PO 11/08/20 21:00 11/23/20 20:05 Carbamazepine (TEGretol) 100 mg DAILY PO 11/12/20 09:00 11/24/20 07:55 Fluvoxamine Maleate (Luvox) 75 mg QHS PO 11/13/20 21:00 11/16/20 17:16 DC 11/15/20 19:38 Quetiapine Fumarate (SEROquel) 50 mg DAILY PO 11/16/20 09:00 11/24/20 07:55 Quetiapine Fumarate (SEROquel) 25 mg BID@1300,1700 PO 11/16/20 13:00 11/23/20 17:22 Fluvoxamine Maleate (Luvox) 100 mg QHS PO 11/16/20 21:00 11/23/20 20:04 Insulin Glargine (Lantus Syringe) 30 unit QHS SQ 11/19/20 21:00 11/23/20 21:09 Insulin Human Lispro (HumaLOG) 12 units TIDWMEALS SQ 11/19/20 12:00 11/24/20 07:58 Trazodone HCl (Desyrel) 25 mg 1700 PO 11/24/20 17:00 11/23/20 17:15 DC Trazodone HCl (Desyrel) 25 mg 1700 PO 11/23/20 17:15 11/23/20 17:21 Trazodone HCl (Desyrel) 50 mg PRN QHS PRN PO INSOMNIA, MAY REPEAT X1 11/23/20 21:15 11/23/20 22:03 Current Medications Medications (Trade) Dose Ordered Sig/Carmina Route PRN Reason Start Time Stop Time Status Last Admin Dose Admin Trazodone HCl (Desyrel) 25 mg 1700 PO 11/23/20 17:15 11/23/20 17:21 Trazodone HCl (Desyrel) 50 mg PRN QHS PRN PO INSOMNIA, MAY REPEAT X1 11/23/20 21:15 11/23/20 22:03 I have reviewed the current psychotropics carefully including drug interactions. Risk benefit ratio favors no change other than as noted in my dictated progress note. Diagnosis: Problems: (1) Impulse control disorder (2) Intellectual disability (3) Bipolar affective, mixed, sev w/ psych (4) Obsessive compulsive disorder (5) Anxiety disorder, unspecified IDA LAINEZ MD Nov 24, 2020 08:30
--- NOTE | 2020-11-24 10:23 | NUR ---
Pt has been complaint with assessment and medications this morning. She ate breakfast and appears to have an adequate appetite. At approx 0820 she requested to use the phone to call Ricky. This nurse encouraged her to wait until a little later in the morning in case Ricky is still asleep and pt appeared accepting of waiting a short amount of time. She had a brief moment of yelling out from her room, which has diminished after a short amount of time. She has been absent of verbal and physical aggression towards staff or patients thus far; she has a new room mate and all staff have been instructed to monitor closely for any changes in behavior. She has not required PRN medications so far this shift. At the time of this writing she is participating in a group activity. Will pass on to the next shift
[2020-11-24] MEDS: QUEtiapine 25 MG TABLET. PO SCH ×2 (12:18→16:42)
[2020-11-24 16:29] VITALS: BP 111/72
[2020-11-24] MEDS: traZODone 50 MG TABLET. PO SCH (16:42)
[2020-11-24] MEDS ORDERED: traZODone 50 MG TABLET. PO SCH (17:00)
[2020-11-24] MEDS: ACETAMINOPHEN 325 MG TABLET PO PRN (18:37)
--- NOTE | 2020-11-24 18:38 | NUR ---
Pt began to c/o L lower back and hip pain around mid-morning. During her call with Ricky she mentioned this, and Ricky called and left a message with this nurse asking that the Dr see pt. On 11/19/20 Pt had a non-remarkable lower back xray d/t pt lowering herself onto the floor (behavior). Ricky would like the Dr to see pt again. Dr Rivera saw pt, see new orders. PRN Acetaminophen 650 mg PO administered.
[2020-11-24] MEDS: carBAMazepine 200 MG TABLET PO SCH (20:43)
[2020-11-24] MEDS: traZODone 100 MG TABLET. PO SCH (20:43)
[2020-11-24] MEDS: MELATONIN 3 MG TABLET PO SCH (20:43)
--- NOTE | 2020-11-24 20:56 | PDOC ---
Exam Note: Marcelo Note: Please also refer to the separate dictated note~for this date of service dictated separately.~Patient seen individually. Discussed the patient with Nursing staff reviewed the chart.~Reviewed interim history and current functioning. Reviewed vital signs,~Labs/ Radiology~and current medications noted below. Continue current treatment with the changes noted in the dictated addendum note Assessment: Vital Signs/I&O: Vital Signs Date Time Temp Pulse Resp B/P (MAP) Pulse Ox O2 Delivery O2 Flow Rate FiO2 11/24/20 16:29 97.9 92 20 111/72 (85) 93 Room Air I & O 11/23/20 11/23/20 11/24/20 14:59 22:59 06:59 Intake Total 720 ml 480 ml Balance 720 ml 480 ml Labs: Laboratory Tests Test 11/24/20 12:11 11/24/20 16:53 11/24/20 19:18 Glucose (Fingerstick) 155 mg/dL (70-99) H 197 mg/dL (70-99) H 175 mg/dL (70-99) H Current Medications: Meds: Laboratory Tests Test 11/24/20 12:11 11/24/20 16:53 11/24/20 19:18 Glucose (Fingerstick) 155 mg/dL 197 mg/dL 175 mg/dL Current Medications Medications (Trade) Dose Ordered Sig/Carmina Route PRN Reason Start Time Stop Time Status Last Admin Dose Admin Acetaminophen (Tylenol) 650 mg PRN Q6HRS PRN PO MILD PAIN / TEMP > 100.3'F 11/03/20 23:15 Cancel Multi-Ingredient Ointment (Analgesic [place]) 1 estrellita PRN QID PRN TP MUSCLE PAIN 11/03/20 23:15 Al Hydroxide/Mg Hydroxide (Mylanta Plus Xs) 15 ml PRN AFTMEALHC PRN PO DYSPEPSIA 11/03/20 23:15 11/23/20 16:07 Magnesium Hydroxide (Milk Of Magnesia) 2,400 mg PRN QHS PRN PO CONSTIPATION 11/03/20 23:15 Levothyroxine Sodium (Synthroid) 25 mcg DAILY06 PO 11/04/20 06:00 11/24/20 05:35 Pantoprazole Sodium (Protonix) 40 mg DAILYAC PO 11/04/20 07:30 11/24/20 07:55 Acetaminophen (Tylenol) 650 mg PRN Q4HRS PRN PO PAIN 11/04/20 00:45 11/24/20 18:37 Aspirin (Aspirin Chewable) 81 mg DAILYWBKFT PO 11/04/20 08:00 11/24/20 07:55 Hydroxyzine Pamoate (Vistaril) 25 mg PRN Q6HRS PRN PO agitation/anxiety 11/04/20 00:45 11/23/20 20:07 Melatonin (Melatonin) 3 mg HS PO 11/04/20 21:00 11/24/20 20:43 Nystatin (Nystop) 1 estrellita PRN BID PRN TP RASH 11/04/20 00:45 Polyethylene Glycol (miraLAX) 17 gm DAILY PO 11/04/20 09:00 11/24/20 07:55 Quetiapine Fumarate (SEROquel) 25 mg BID PO 11/04/20 09:00 11/15/20 21:52 DC 11/15/20 19:38 Quetiapine Fumarate (SEROquel) 100 mg TID PO 11/04/20 09:00 11/24/20 20:43 Trazodone HCl (Desyrel) 100 mg HS PO 11/04/20 21:00 11/24/20 20:43 Non-Formulary Medication (Ergocalciferol (Vitamin D2) (Vitamin D2)) 1,250 mcg WEEKLY PO 11/04/20 09:00 11/04/20 15:01 DC Citalopram Hydrobromide (CeleXA) 40 mg DAILY PO 11/04/20 09:00 11/05/20 18:18 DC 11/05/20 08:22 Fenofibrate (Tricor) 145 mg DAILY PO 11/04/20 09:00 11/24/20 07:55 Non-Formulary Medication (Guanfacine Hcl ) 1 tab BID PO 11/04/20 09:00 11/08/20 18:18 DC Non-Formulary Medication (Insulin Aspart (Novolog)) 9 unit TIDWMEALS SQ 11/04/20 08:00 UNV Non-Formulary Medication (Insulin Glargine,Hum.rec.anlog (Lantus Solostar)) 20 unit QHS SQ 11/04/20 21:00 UNV Non-Formulary Medication (Menthol/Zinc Oxide (Calmoseptine Ointment)) 71 gm BID TP 11/04/20 09:00 11/04/20 14:56 DC Insulin Glargine (Lantus Syringe) 20 unit QHS SQ 11/04/20 21:00 11/19/20 10:32 DC 11/18/20 20:56 Insulin Human Lispro (HumaLOG) 9 units TIDWMEALS SQ 11/04/20 08:00 11/19/20 10:33 DC 11/19/20 08:00 Vitamin D (Vitamin D3) 50,000 unit WEEKLY PO 11/05/20 09:00 11/19/20 05:51 Diphenhydramine HCl (Benadryl) 50 mg PRN Q6HRS PRN PO RASH 11/05/20 11:30 11/17/20 17:46 Oxcarbazepine (Trileptal) 300 mg BID PO 11/05/20 21:00 11/07/20 16:24 DC 11/07/20 09:08 Fluvoxamine Maleate (Luvox) 50 mg QHS PO 11/05/20 21:00 11/13/20 17:24 DC 11/12/20 19:30 Levofloxacin (Levaquin) 250 mg DAILY06 PO 11/06/20 16:00 11/10/20 06:01 DC 11/10/20 05:30 Lactobacillus Rhamnosus (Culturelle) 1 cap BID PO 11/07/20 21:00 11/24/20 20:42 Olanzapine (ZyPREXA ZYDIS) 5 mg PRN Q2HR PRN PO PSYCHOSIS 11/08/20 17:00 11/23/20 22:03 Carbamazepine (TEGretol) 200 mg QHS PO 11/08/20 21:00 11/24/20 20:43 Carbamazepine (TEGretol) 100 mg DAILY PO 11/12/20 09:00 11/24/20 07:55 Fluvoxamine Maleate (Luvox) 75 mg QHS PO 11/13/20 21:00 11/16/20 17:16 DC 11/15/20 19:38 Quetiapine Fumarate (SEROquel) 50 mg DAILY PO 11/16/20 09:00 11/24/20 07:55 Quetiapine Fumarate (SEROquel) 25 mg BID@1300,1700 PO 11/16/20 13:00 11/24/20 16:42 Fluvoxamine Maleate (Luvox) 100 mg QHS PO 11/16/20 21:00 11/24/20 20:43 Insulin Glargine (Lantus Syringe) 30 unit QHS SQ 11/19/20 21:00 11/23/20 21:09 Insulin Human Lispro (HumaLOG) 12 units TIDWMEALS SQ 11/19/20 12:00 11/24/20 17:31 Trazodone HCl (Desyrel) 25 mg 1700 PO 11/24/20 17:00 11/23/20 17:15 DC Trazodone HCl (Desyrel) 25 mg 1700 PO 11/23/20 17:15 11/24/20 16:42 Trazodone HCl (Desyrel) 50 mg PRN QHS PRN PO INSOMNIA, MAY REPEAT X1 11/23/20 21:15 11/23/20 22:03 Current Medications Medications (Trade) Dose Ordered Sig/Carmina Route PRN Reason Start Time Stop Time Status Last Admin Dose Admin Trazodone HCl (Desyrel) 50 mg PRN QHS PRN PO INSOMNIA, MAY REPEAT X1 11/23/20 21:15 11/23/20 22:03 I have reviewed the current psychotropics carefully including drug interactions. Risk benefit ratio favors no change other than as noted in my dictated progress note. Diagnosis: Problems: (1) Obsessive compulsive disorder (2) Impulse control disorder (3) Intellectual disability (4) Anxiety disorder, unspecified (5) Bipolar affective, mixed, sev w/ psych IDA LAINEZ MD Nov 24, 2020 20:56
[2020-11-24] MEDS: INSULIN GLARGINE SYRINGE. SQ SCH (21:14)
[2020-11-24 22:00] LABS: CLARITY,URINE CLEAR; COLOR,URINE YELLOW
[2020-11-24 22:01] LABS: BACTERIA,URINE FEW /HPF (0-FEW); BILIRUBIN,URINE NEG (NEG); GLUCOSE,URINE NEG (NEG); NITRITE,URINE NEG (NEG); RBC,URINE OCC /HPF (0-2); SQUAMOUS EPITHELIAL CELL,UR MANY /LPF; UROBILINOGEN,URINE 0.2 mg/dL (0.2 mg/dL); WBC,URINE OCC /HPF (0-4)
--- NOTE | 2020-11-24 23:33 | NUR ---
Patient had very few episodes of yelling out tonight. She was allowed to call Dmitriy at 1930 and was cooperative with medications. Urine sample obtained and was sent to lab to check for UTI per families request. Patient called out for "Jet" a few times and was yelling "good night" but was mostly verbally redirectable, no PRNs were needed to this point in shift. Patient did not complain of pain at HS. Patient is asleep at this time. Patient has adjusted to her new room well, there have been no altercations with new room mate.
[2020-11-25 05:28] VITALS: BP 137/76
[2020-11-25] MEDS: LEVOTHYROXINE 25 MCG TABLET. PO SCH (05:55)
[2020-11-25] MEDS: QUEtiapine 100 MG TABLET. PO SCH ×3 (07:56→19:52)
[2020-11-25] MEDS: FENOFIBRATE NANOCRYSTALLIZED 145 MG TABLET PO SCH (07:56)
[2020-11-25] MEDS: ASPIRIN CHEWABLE 81 MG TABLET. PO SCH (07:56)
[2020-11-25] MEDS: QUEtiapine 50 MG TABLET. PO SCH (07:56)
[2020-11-25] MEDS: LACTOBACILLUS RHAMNOSUS GG 1 CAPSULE. PO SCH ×2 (07:56→19:52)
[2020-11-25] MEDS: POLYETHYLENE GLYCOL 3350 17 GM PACKET. PO SCH (07:56)
[2020-11-25] MEDS: carBAMazepine 100 MG TAB.CHEW PO SCH (07:56)
[2020-11-25] MEDS: PANTOPRAZOLE 40 MG TABLET. PO SCH (07:56)
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
[2020-11-25] MEDS: INSULIN LISPRO 300 UNITS/3 ML VIAL. SQ SCH ×3 (07:58→17:00)
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
[2020-11-25] MEDS: QUEtiapine 25 MG TABLET. PO SCH ×2 (13:00→17:00)
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
[2020-11-25 15:58] VITALS: BP 118/58
--- NOTE | 2020-11-25 16:24 | RAD ---
Exam performed: Nuclear medicine whole-body bone scan. Indication: Fall with back pain, left hip pain for 5 days Date of Service: 11/25/2020 Comparison:X-ray from 03/03/2021 Discussion: Following the intravenous administration of 23.0 mCi of MDP labeled with Technetiumrosalinda whole-body gamma camera images of the axial and appendicular skeleton were obtained. There is a s mall focus of increased activity localizing to the lumbar spine perhaps L2 or L3 level, best seen on posterior images. There is degenerative pattern of uptake in both shoulders and. Elsewhere normal dis tribution of the radionuclide is noted. Impression: Small focus of increased activity in the upper lumbar spine perhaps L2 or L3. Recent x-rays did not d emonstrate any gross compression fracture, however mild compression fracture is not entirely excluded . Evaluation with MRI of the lumbar spine may be obtained if indicated. Electronically signed by: Amanda Torres MD (11/25/2020 4:21 PM) [id number]
[2020-11-25] MEDS: traZODone 50 MG TABLET. PO SCH (17:00)
--- NOTE | 2020-11-25 17:38 | NUR ---
Patient in her room at time of assessment sitting in chair eating breakfast. Patient is cooperative and takes medications whole. Patient is attention seeking and yells out when she needs something. Patient participates in groups and had a good day. No complaints and no further concerns at this time.
[2020-11-25] MEDS: MELATONIN 3 MG TABLET PO SCH (19:52)
[2020-11-25] MEDS: traZODone 100 MG TABLET. PO SCH (19:52)
[2020-11-25] MEDS: carBAMazepine 200 MG TABLET PO SCH (19:53)
--- NOTE | 2020-11-25 20:58 | PDOC ---
Exam Note: Marcelo Note: Please also refer to the separate dictated note~for this date of service dictated separately.~Patient seen individually. Discussed the patient with Nursing staff reviewed the chart.~Reviewed interim history and current functioning. Reviewed vital signs,~Labs/ Radiology~and current medications noted below. Continue current treatment with the changes noted in the dictated addendum note Assessment: Vital Signs/I&O: Vital Signs Date Time Temp Pulse Resp B/P (MAP) Pulse Ox O2 Delivery O2 Flow Rate FiO2 11/25/20 15:58 98.3 87 20 118/58 (78) 11/25/20 05:28 94 11/24/20 16:29 Room Air I & O 11/24/20 11/24/20 11/25/20 15:00 23:00 07:00 Intake Total 480 ml 600 ml Balance 480 ml 600 ml Labs: Laboratory Tests Test 11/24/20 21:00 11/25/20 07:46 11/25/20 11:43 11/25/20 16:40 Urine Collection Type Unknown Urine Color Yellow Urine Clarity Clear Urine pH 5.5 Urine Specific [place] 1.025 Urine Protein Neg (NEG-TRACE) Urine Glucose (UA) Neg mg/dL (NEG) Urine Ketones (Stick) Trace mg/dL (NEG) Urine Blood Neg (NEG) Urine Nitrite Neg (NEG) Urine Bilirubin Neg (NEG) Urine Urobilinogen Dipstick 0.2 mg/dL (0.2 mg/dL) Urine Leukocyte Esterase Neg (NEG) Urine RBC Occ /HPF (0-2) Urine WBC Occ /HPF (0-4) Urine Squamous Epithelial Cells Many /LPF Urine Bacteria Few /HPF (0-FEW) Glucose (Fingerstick) 176 mg/dL (70-99) H 250 mg/dL (70-99) H 303 mg/dL (70-99) H Test 11/25/20 19:18 Glucose (Fingerstick) 288 mg/dL (70-99) H Current Medications: Meds: Laboratory Tests Test 11/24/20 21:00 11/25/20 07:46 11/25/20 11:43 11/25/20 16:40 Urine Collection Type Unknown Urine Color Yellow Urine Clarity Clear Urine pH 5.5 Urine Specific [place] 1.025 Urine Protein Neg Urine Glucose (UA) Neg mg/dL Urine Ketones (Stick) Trace mg/dL Urine Blood Neg Urine Nitrite Neg Urine Bilirubin Neg Urine Urobilinogen Dipstick 0.2 mg/dL Urine Leukocyte Esterase Neg Urine RBC Occ /HPF Urine WBC Occ /HPF Urine Squamous Epithelial Cells Many /LPF Urine Bacteria Few /HPF Glucose (Fingerstick) 176 mg/dL 250 mg/dL 303 mg/dL Test 11/25/20 19:18 Glucose (Fingerstick) 288 mg/dL Current Medications Medications (Trade) Dose Ordered Sig/Carmina Route PRN Reason Start Time Stop Time Status Last Admin Dose Admin Acetaminophen (Tylenol) 650 mg PRN Q6HRS PRN PO MILD PAIN / TEMP > 100.3'F 11/03/20 23:15 Cancel Multi-Ingredient Ointment (Analgesic [place]) 1 estrellita PRN QID PRN TP MUSCLE PAIN 11/03/20 23:15 Al Hydroxide/Mg Hydroxide (Mylanta Plus Xs) 15 ml PRN AFTMEALHC PRN PO DYSPEPSIA 11/03/20 23:15 11/23/20 16:07 Magnesium Hydroxide (Milk Of Magnesia) 2,400 mg PRN QHS PRN PO CONSTIPATION 11/03/20 23:15 Levothyroxine Sodium (Synthroid) 25 mcg DAILY06 PO 11/04/20 06:00 11/25/20 05:55 Pantoprazole Sodium (Protonix) 40 mg DAILYAC PO 11/04/20 07:30 11/25/20 07:56 Acetaminophen (Tylenol) 650 mg PRN Q4HRS PRN PO PAIN 11/04/20 00:45 11/24/20 18:37 Aspirin (Aspirin Chewable) 81 mg DAILYWBKFT PO 11/04/20 08:00 11/25/20 07:56 Hydroxyzine Pamoate (Vistaril) 25 mg PRN Q6HRS PRN PO agitation/anxiety 11/04/20 00:45 11/23/20 20:07 Melatonin (Melatonin) 3 mg HS PO 11/04/20 21:00 11/25/20 19:52 Nystatin (Nystop) 1 estrellita PRN BID PRN TP RASH 11/04/20 00:45 Polyethylene Glycol (miraLAX) 17 gm DAILY PO 11/04/20 09:00 11/25/20 07:56 Quetiapine Fumarate (SEROquel) 25 mg BID PO 11/04/20 09:00 11/15/20 21:52 DC 11/15/20 19:38 Quetiapine Fumarate (SEROquel) 100 mg TID PO 11/04/20 09:00 11/25/20 19:52 Trazodone HCl (Desyrel) 100 mg HS PO 11/04/20 21:00 11/25/20 19:52 Non-Formulary Medication (Ergocalciferol (Vitamin D2) (Vitamin D2)) 1,250 mcg WEEKLY PO 11/04/20 09:00 11/04/20 15:01 DC Citalopram Hydrobromide (CeleXA) 40 mg DAILY PO 11/04/20 09:00 11/05/20 18:18 DC 11/05/20 08:22 Fenofibrate (Tricor) 145 mg DAILY PO 11/04/20 09:00 11/25/20 07:56 Non-Formulary Medication (Guanfacine Hcl ) 1 tab BID PO 11/04/20 09:00 11/08/20 18:18 DC Non-Formulary Medication (Insulin Aspart (Novolog)) 9 unit TIDWMEALS SQ 11/04/20 08:00 UNV Non-Formulary Medication (Insulin Glargine,Hum.rec.anlog (Lantus Solostar)) 20 unit QHS SQ 11/04/20 21:00 UNV Non-Formulary Medication (Menthol/Zinc Oxide (Calmoseptine Ointment)) 71 gm BID TP 11/04/20 09:00 11/04/20 14:56 DC Insulin Glargine (Lantus Syringe) 20 unit QHS SQ 11/04/20 21:00 11/19/20 10:32 DC 11/18/20 20:56 Insulin Human Lispro (HumaLOG) 9 units TIDWMEALS SQ 11/04/20 08:00 11/19/20 10:33 DC 11/19/20 08:00 Vitamin D (Vitamin D3) 50,000 unit WEEKLY PO 11/05/20 09:00 11/19/20 05:51 Diphenhydramine HCl (Benadryl) 50 mg PRN Q6HRS PRN PO RASH 11/05/20 11:30 11/17/20 17:46 Oxcarbazepine (Trileptal) 300 mg BID PO 11/05/20 21:00 11/07/20 16:24 DC 11/07/20 09:08 Fluvoxamine Maleate (Luvox) 50 mg QHS PO 11/05/20 21:00 11/13/20 17:24 DC 11/12/20 19:30 Levofloxacin (Levaquin) 250 mg DAILY06 PO 11/06/20 16:00 11/10/20 06:01 DC 11/10/20 05:30 Lactobacillus Rhamnosus (Culturelle) 1 cap BID PO 11/07/20 21:00 11/25/20 19:52 Olanzapine (ZyPREXA ZYDIS) 5 mg PRN Q2HR PRN PO PSYCHOSIS 11/08/20 17:00 11/23/20 22:03 Carbamazepine (TEGretol) 200 mg QHS PO 11/08/20 21:00 11/25/20 19:53 Carbamazepine (TEGretol) 100 mg DAILY PO 11/12/20 09:00 11/25/20 07:56 Fluvoxamine Maleate (Luvox) 75 mg QHS PO 11/13/20 21:00 11/16/20 17:16 DC 11/15/20 19:38 Quetiapine Fumarate (SEROquel) 50 mg DAILY PO 11/16/20 09:00 11/25/20 07:56 Quetiapine Fumarate (SEROquel) 25 mg BID@1300,1700 PO 11/16/20 13:00 11/25/20 17:00 Fluvoxamine Maleate (Luvox) 100 mg QHS PO 11/16/20 21:00 11/25/20 19:52 Insulin Glargine (Lantus Syringe) 30 unit QHS SQ 11/19/20 21:00 11/24/20 21:14 Insulin Human Lispro (HumaLOG) 12 units TIDWMEALS SQ 11/19/20 12:00 11/25/20 17:00 Trazodone HCl (Desyrel) 25 mg 1700 PO 11/24/20 17:00 11/23/20 17:15 DC Trazodone HCl (Desyrel) 25 mg 1700 PO 11/23/20 17:15 11/25/20 17:00 Trazodone HCl (Desyrel) 50 mg PRN QHS PRN PO INSOMNIA, MAY REPEAT X1 11/23/20 21:15 11/23/20 22:03 I have reviewed the current psychotropics carefully including drug interactions. Risk benefit ratio favors no change other than as noted in my dictated progress note. Diagnosis: Problems: (1) Obsessive compulsive disorder (2) Impulse control disorder (3) Intellectual disability (4) Bipolar affective, mixed, sev w/ psych (5) Anxiety disorder, unspecified IDA LAINEZ MD Nov 25, 2020 20:58
[2020-11-25] MEDS: INSULIN GLARGINE SYRINGE. SQ SCH (21:19)
[2020-11-25] MEDS: hydrOXYzine PAMOATE 25 MG CAPSULE PO PRN (22:59)
--- NOTE | 2020-11-26 01:39 | NUR ---
Nursing Note The patient was disruptive, agitated and argumentative this shift. The patient stood at the nurses station and yelled from time to time and would also yell while in her room. the patient was very difficult to orient/redirect and would often yell the same questions repeatedly. The patient was given Vistaril per PRN order. the patient is currently located in the quiet jhaveri r/t yelling and being disruptive. The patient is currently yelling while laying in the quiet room.
[2020-11-26] MEDS: traZODone 50 MG TABLET. PO PRN (01:47)
[2020-11-26 05:43] VITALS: BP 120/74
[2020-11-26] MEDS: LEVOTHYROXINE 25 MCG TABLET. PO SCH (05:57)
[2020-11-26] MEDS: INSULIN LISPRO 300 UNITS/3 ML VIAL. SQ SCH ×3 (08:00→17:00)
[2020-11-26] MEDS: LACTOBACILLUS RHAMNOSUS GG 1 CAPSULE. PO SCH ×2 (08:56→19:59)
[2020-11-26] MEDS: QUEtiapine 100 MG TABLET. PO SCH ×3 (08:56→20:00)
[2020-11-26] MEDS: QUEtiapine 50 MG TABLET. PO SCH (08:56)
[2020-11-26] MEDS: FENOFIBRATE NANOCRYSTALLIZED 145 MG TABLET PO SCH (08:56)
[2020-11-26] MEDS: ASPIRIN CHEWABLE 81 MG TABLET. PO SCH (08:56)
[2020-11-26] MEDS: PANTOPRAZOLE 40 MG TABLET. PO SCH (08:56)
[2020-11-26] MEDS: carBAMazepine 100 MG TAB.CHEW PO SCH (08:57)
[2020-11-26] MEDS: POLYETHYLENE GLYCOL 3350 17 GM PACKET. PO SCH (08:57)
[2020-11-26] MEDS: CHOLECALCIFEROL (VITAMIN D3) 50,000 UNIT CAPSULE PO SCH (08:57)
--- NOTE | 2020-11-26 10:32 | NUR ---
ANJU received call from Ricky, who wanted an update on pt and wanted to see if SW got her message about Covid shot concerns. Ricky wants pt to continue her medication regime, but feels it's very important to get the Covid shot on time for efficacy purposes. ANJU and Ricky discussed allowing the facility to make that decision. If they would like for pt to come today, we can abide by that; however, if there is a tk period and pt can discharge next week as planned, then we'll do that. Ricky expressed her anxiety about having to make the best decision for someone else aside from yourself and just hopes she's doing right by pt. ANJU will keep Ricky in touch if anything changes with discharge plans.
--- NOTE | 2020-11-26 11:10 | NUR ---
Patient in room at time of assessment. Patient is calm and cooperative and takes medications whole with no problems. Patient is alert and oriented to self. She is confused and forgetful. Patient has no complaints to me at this time. No further concerns at this time.
[2020-11-26] MEDS: QUEtiapine 25 MG TABLET. PO SCH ×2 (13:00→16:30)
[2020-11-26 16:14] VITALS: BP 113/60
[2020-11-26] MEDS: traZODone 50 MG TABLET. PO SCH (17:00)
[2020-11-26] MEDS: traZODone 100 MG TABLET. PO SCH (19:59)
[2020-11-26] MEDS: carBAMazepine 200 MG TABLET PO SCH (19:59)
[2020-11-26] MEDS: MELATONIN 3 MG TABLET PO SCH (20:00)
[2020-11-26] MEDS: INSULIN GLARGINE SYRINGE. SQ SCH (20:57)
--- NOTE | 2020-11-26 23:26 | NUR ---
Patient is ambulating around the unit on assumption of care. She is in pleasant spirits. Compliant with assessments and medications taken whole. No agitation. No perseverating on calling her sister. Needed encouragement several times to return to her room. No complaints of pain or discomfort. Patient appears to be sleeping comfortably at present time. Will continue to monitor.
[2020-11-27] MEDS: LEVOTHYROXINE 25 MCG TABLET. PO SCH (05:13)
[2020-11-27 05:52] VITALS: BP 110/52
[2020-11-27] MEDS: INSULIN LISPRO 300 UNITS/3 ML VIAL. SQ SCH ×3 (08:09→17:16)
[2020-11-27] MEDS: QUEtiapine 50 MG TABLET. PO SCH (08:10)
[2020-11-27] MEDS: QUEtiapine 100 MG TABLET. PO SCH ×3 (08:10→19:23)
[2020-11-27] MEDS: LACTOBACILLUS RHAMNOSUS GG 1 CAPSULE. PO SCH ×2 (08:10→19:23)
[2020-11-27] MEDS: POLYETHYLENE GLYCOL 3350 17 GM PACKET. PO SCH (08:10)
[2020-11-27] MEDS: ASPIRIN CHEWABLE 81 MG TABLET. PO SCH (08:10)
[2020-11-27] MEDS: PANTOPRAZOLE 40 MG TABLET. PO SCH (08:10)
[2020-11-27] MEDS: FENOFIBRATE NANOCRYSTALLIZED 145 MG TABLET PO SCH (08:10)
[2020-11-27] MEDS: carBAMazepine 100 MG TAB.CHEW PO SCH (08:11)
--- NOTE | 2020-11-27 09:17 | NUR ---
Patient starting out calm and cooperative. Patient no yelling out at this time. patient appears to be enjoying socialization with other patients at breakfast.
[2020-11-27] MEDS: QUEtiapine 25 MG TABLET. PO SCH ×2 (12:05→17:14)
[2020-11-27 15:41] VITALS: BP 119/62
[2020-11-27] MEDS: traZODone 50 MG TABLET. PO SCH (17:14)
[2020-11-27] MEDS: carBAMazepine 200 MG TABLET PO SCH (19:23)
[2020-11-27] MEDS: MELATONIN 3 MG TABLET PO SCH (19:23)
[2020-11-27] MEDS: traZODone 100 MG TABLET. PO SCH (19:23)
[2020-11-27] MEDS: hydrOXYzine PAMOATE 25 MG CAPSULE PO PRN (19:25)
[2020-11-27] MEDS: INSULIN GLARGINE SYRINGE. SQ SCH (19:26)
--- NOTE | 2020-11-27 20:59 | PDOC ---
Exam Note: Marcelo Note: Late entry for 11/26/2020. Please also refer to the separate dictated note~for this date of service dictated separately.~Patient seen individually. Discussed the patient with Nursing staff reviewed the chart.~Reviewed interim history and current functioning. Reviewed vital signs,~Labs/ Radiology~and current medic ations noted below. Continue current treatment with the changes noted in the dictated addendum note Assessment: Vital Signs/I&O: Vital Signs Date Time Temp Pulse Resp B/P (MAP) Pulse Ox O2 Delivery O2 Flow Rate FiO2 11/27/20 15:41 98.6 84 18 119/62 (81) 94 11/27/20 05:52 Room Air I & O 0 11/26/20 11/26/20 11/27/20 15:00 23:00 07:00 Intake Total 720 ml 600 ml Balance 720 ml 600 ml Labs: Laboratory Tests Test 11/27/20 07:57 11/27/20 12:04 11/27/20 16:55 11/27/20 19:15 Glucose (Fingerstick) 169 mg/dL (70-99) H 248 mg/dL (70-99) H 117 mg/dL (70-99) H 99 mg/dL (70-99) Current Medications: I have reviewed the current psychotropics carefully including drug interactions. Risk benefit ratio favors no change other than as noted in my dictated progress note. Diagnosis: Problems: (1) Obsessive compulsive disorder (2) Impulse control disorder (3) Intellectual disability (4) Bipolar affective, mixed, sev w/ psych IDA LAINEZ MD Nov 27, 2020 20:59
--- NOTE | 2020-11-27 21:00 | PDOC ---
Exam Note: Marcelo Note: Please also refer to the separate dictated note~for this date of service dictated separately.~Patient seen individually. Discussed the patient with Nursing staff reviewed the chart.~Reviewed interim history and current functioning. Reviewed vital signs,~Labs/ Radiology~and current medications noted below. Continue current treatment with the changes noted in the dictated addendum note Assessment: Vital Signs/I&O: Vital Signs Date Time Temp Pulse Resp B/P (MAP) Pulse Ox O2 Delivery O2 Flow Rate FiO2 11/27/20 15:41 98.6 84 18 119/62 (81) 94 11/27/20 05:52 Room Air I & O 11/26/20 11/26/20 11/27/20 15:00 23:00 07:00 Intake Total 720 ml 600 ml Balance 720 ml 600 ml Labs: Laboratory Tests Test 11/27/20 07:57 11/27/20 12:04 11/27/20 16:55 11/27/20 19:15 Glucose (Fingerstick) 169 mg/dL (70-99) H 248 mg/dL (70-99) H 117 mg/dL (70-99) H 99 mg/dL (70-99) Current Medications: I have reviewed the current psychotropics carefully including drug interactions. Risk benefit ratio favors no change other than as noted in my dictated progress note. Diagnosis: Problems: (1) Bipolar affective, mixed, sev w/ psych (2) Intellectual disability (3) Impulse control disorder (4) Obsessive compulsive disorder (5) Anxiety disorder, unspecified IDA LAINEZ MD Nov 27, 2020 21:00
--- NOTE | 2020-11-27 22:00 | NUR ---
Nursing Note The patient was disruptive, agitated and argumentative this shift. The patient stood in the quiet jhaveri yelling. The patient was very difficult to orient/redirect and would often yell the same questions repeatedly. The patient was given Vistaril with HS medications per PRN order. Pt settled down, attempted to allow pt to lay down in bed. Pt repeatedly yelled and wandered out of her room. Pt escorted back to the quiet jhaveri.
[2020-11-28] MEDS: LEVOTHYROXINE 25 MCG TABLET. PO SCH (05:29)
[2020-11-28 06:11] VITALS: BP 113/73
[2020-11-28] MEDS: POLYETHYLENE GLYCOL 3350 17 GM PACKET. PO SCH (07:35)
[2020-11-28] MEDS: QUEtiapine 50 MG TABLET. PO SCH (08:05)
[2020-11-28] MEDS: LACTOBACILLUS RHAMNOSUS GG 1 CAPSULE. PO SCH ×2 (08:05→18:29)
[2020-11-28] MEDS: carBAMazepine 100 MG TAB.CHEW PO SCH (08:05)
[2020-11-28] MEDS: PANTOPRAZOLE 40 MG TABLET. PO SCH (08:05)
[2020-11-28] MEDS: FENOFIBRATE NANOCRYSTALLIZED 145 MG TABLET PO SCH (08:05)
[2020-11-28] MEDS: ASPIRIN CHEWABLE 81 MG TABLET. PO SCH (08:05)
[2020-11-28] MEDS: QUEtiapine 100 MG TABLET. PO SCH ×3 (08:05→18:29)
[2020-11-28] MEDS: INSULIN LISPRO 300 UNITS/3 ML VIAL. SQ SCH ×3 (08:07→17:20)
[2020-11-28] MEDS: QUEtiapine 25 MG TABLET. PO SCH ×2 (11:53→17:19)
--- NOTE | 2020-11-28 15:25 | NUR ---
Patient yelling out most of day. patient given prn medication in attempt to help with behaviors. patient quiet and engaged during groups but is hyper-focused on calling jerica most of the day.
[2020-11-28 15:26] VITALS: BP 114/72
[2020-11-28] MEDS: traZODone 50 MG TABLET. PO SCH (17:19)
[2020-11-28] MEDS: carBAMazepine 200 MG TABLET PO SCH (18:29)
[2020-11-28] MEDS: MELATONIN 3 MG TABLET PO SCH (18:29)
[2020-11-28] MEDS: traZODone 100 MG TABLET. PO SCH (18:30)
[2020-11-28 19:46] LABS: BILIRUBIN,URINE NEG (NEG); CLARITY,URINE CLEAR; COLOR,URINE YELLOW; GLUCOSE,URINE NEG (NEG)
[2020-11-28 19:47] LABS: BACTERIA,URINE FEW /HPF (0-FEW); NITRITE,URINE NEG (NEG); RBC,URINE OCC /HPF (0-2); SQUAMOUS EPITHELIAL CELL,UR FEW /LPF; UROBILINOGEN,URINE 0.2 mg/dL (0.2 mg/dL); WBC,URINE OCC /HPF (0-4)
[2020-11-28] MEDS: INSULIN GLARGINE SYRINGE. SQ SCH (20:41)
--- NOTE | 2020-11-28 20:51 | PDOC ---
Exam Note: Marcelo Note: Please also refer to the separate dictated note~for this date of service dictated separately.~Patient seen individually. Discussed the patient with Nursing staff reviewed the chart.~Reviewed interim history and current functioning. Reviewed vital signs,~Labs/ Radiology~and current medications noted below. Continue current treatment with the changes noted in the dictated addendum note Assessment: Vital Signs/I&O: Vital Signs Date Time Temp Pulse Resp B/P (MAP) Pulse Ox O2 Delivery O2 Flow Rate FiO2 11/28/20 15:26 97.3 85 18 114/72 (86) 96 11/27/20 05:52 Room Air I & O 11/27/20 11/27/20 11/28/20 15:00 23:00 07:00 Intake Total 480 ml 360 ml Balance 480 ml 360 ml Labs: Laboratory Tests Test 11/28/20 07:28 11/28/20 12:00 11/28/20 16:43 11/28/20 19:26 Glucose (Fingerstick) 158 mg/dL (70-99) H 247 mg/dL (70-99) H 138 mg/dL (70-99) H Urine Collection Type Clean catch Urine Color Yellow Urine Clarity Clear Urine pH 5.5 Urine Specific [place] 1.025 Urine Protein Neg (NEG-TRACE) Urine Glucose (UA) Neg mg/dL (NEG) Urine Ketones (Stick) Neg mg/dL (NEG) Urine Blood Neg (NEG) Urine Nitrite Neg (NEG) Urine Bilirubin Neg (NEG) Urine Urobilinogen Dipstick 0.2 mg/dL (0.2 mg/dL) Urine Leukocyte Esterase Neg (NEG) Urine RBC Occ /HPF (0-2) Urine WBC Occ /HPF (0-4) Urine Squamous Epithelial Cells Few /LPF Urine Bacteria Few /HPF (0-FEW) Test 11/28/20 19:43 Glucose (Fingerstick) 93 mg/dL (70-99) Current Medications: I have reviewed the current psychotropics carefully including drug interactions. Risk benefit ratio favors no change other than as noted in my dictated progress note. Diagnosis: Problems: (1) Impulse control disorder (2) Bipolar affective, mixed, sev w/ psych (3) Intellectual disability (4) Anxiety disorder, unspecified (5) Obsessive compulsive disorder IDA LAINEZ MD Nov 28, 2020 20:51
--- NOTE | 2020-11-28 22:45 | NUR ---
Pt yelling at beginning of shift. Compliant with whole medications. Pt later calmed down with redirection and went to sleep.
[2020-11-29] MEDS: LEVOTHYROXINE 25 MCG TABLET. PO SCH (05:36)
[2020-11-29 06:20] VITALS: BP 153/74
--- NOTE | 2020-11-29 06:58 | PDOC ---
Exam Note: Marcelo Note: This note is a late entry for 11/25/2020 covers elements not covered in my initial note. Subjective: The patient was seen face to face in the morning of 11/25/2020 for a treatment team meeting with Belkis Dinh, Geeta Monroe and Thais (social scientist), Migdalia Smith, activity therapy and Janice HOLLINGSWORTH, discussed and reviewed the patients history at length. The patient slept 6-1/2 hours previous night. The patients sister Ricky attended the treatment team meeting. Review of Systems: Ambulation impaired with walker. No CV, , pulmonary, eye, ENT system symptoms on review. Mental Status Exam: The patient is awake, alert and oriented. Speech is coherent, less pressured, less repetitive. Abstraction is fair. Computation is impaired. Language function intact. Attention span is short. Mood and affect anxious, labile today. No suicidal or homicidal ideation. Laboratory Data: Reviewed. Impression: Bipolar 1 disorder mixed with psychotic features. OCD. Anxiety disorder unspecified. Impulse control disorder unspecified. Plan: No change from initial note. Assessment: Vital Signs/I&O: Vital Signs Date Time Temp Pulse Resp B/P (MAP) Pulse Ox O2 Delivery O2 Flow Rate FiO2 11/29/20 06:20 98.5 77 16 153/74 (100) 96 Room Air I & O 11/28/20 11/28/20 11/29/20 15:00 23:00 07:00 Intake Total 720 ml 360 ml 120 ml Balance 720 ml 360 ml 120 ml Labs: Laboratory Tests Test 11/28/20 07:28 11/28/20 12:00 11/28/20 16:43 11/28/20 19:26 Glucose (Fingerstick) 158 mg/dL (70-99) H 247 mg/dL (70-99) H 138 mg/dL (70-99) H Urine Collection Type Clean catch Urine Color Yellow Urine Clarity Clear Urine pH 5.5 Urine Specific [place] 1.025 Urine Protein Neg (NEG-TRACE) Urine Glucose (UA) Neg mg/dL (NEG) Urine Ketones (Stick) Neg mg/dL (NEG) Urine Blood Neg (NEG) Urine Nitrite Neg (NEG) Urine Bilirubin Neg (NEG) Urine Urobilinogen Dipstick 0.2 mg/dL (0.2 mg/dL) Urine Leukocyte Esterase Neg (NEG) Urine RBC Occ /HPF (0-2) Urine WBC Occ /HPF (0-4) Urine Squamous Epithelial Cells Few /LPF Urine Bacteria Few /HPF (0-FEW) Test 11/28/20 19:43 Glucose (Fingerstick) 93 mg/dL (70-99) Current Medications: Meds: Laboratory Tests Test 11/28/20 07:28 11/28/20 12:00 11/28/20 16:43 11/28/20 19:26 Glucose (Fingerstick) 158 mg/dL 247 mg/dL 138 mg/dL Urine Collection Type Clean catch Urine Color Yellow Urine Clarity Clear Urine pH 5.5 Urine Specific [place] 1.025 Urine Protein Neg Urine Glucose (UA) Neg mg/dL Urine Ketones (Stick) Neg mg/dL Urine Blood Neg Urine Nitrite Neg Urine Bilirubin Neg Urine Urobilinogen Dipstick 0.2 mg/dL Urine Leukocyte Esterase Neg Urine RBC Occ /HPF Urine WBC Occ /HPF Urine Squamous Epithelial Cells Few /LPF Urine Bacteria Few /HPF Test 11/28/20 19:43 Glucose (Fingerstick) 93 mg/dL Current Medications Medications (Trade) Dose Ordered Sig/Carmina Route PRN Reason Start Time Stop Time Status Last Admin Dose Admin Acetaminophen (Tylenol) 650 mg PRN Q6HRS PRN PO MILD PAIN / TEMP > 100.3'F 11/03/20 23:15 Cancel Multi-Ingredient Ointment (Analgesic [place]) 1 estrellita PRN QID PRN TP MUSCLE PAIN 11/03/20 23:15 Al Hydroxide/Mg Hydroxide (Mylanta Plus Xs) 15 ml PRN AFTMEALHC PRN PO DYSPEPSIA 11/03/20 23:15 11/23/20 16:07 Magnesium Hydroxide (Milk Of Magnesia) 2,400 mg PRN QHS PRN PO CONSTIPATION 11/03/20 23:15 Levothyroxine Sodium (Synthroid) 25 mcg DAILY06 PO 11/04/20 06:00 11/29/20 05:36 Pantoprazole Sodium (Protonix) 40 mg DAILYAC PO 11/04/20 07:30 11/28/20 08:05 Acetaminophen (Tylenol) 650 mg PRN Q4HRS PRN PO PAIN 11/04/20 00:45 11/24/20 18:37 Aspirin (Aspirin Chewable) 81 mg DAILYWBKFT PO 11/04/20 08:00 11/28/20 08:05 Hydroxyzine Pamoate (Vistaril) 25 mg PRN Q6HRS PRN PO agitation/anxiety 11/04/20 00:45 11/27/20 19:25 Melatonin (Melatonin) 3 mg HS PO 11/04/20 21:00 11/28/20 18:29 Nystatin (Nystop) 1 estrellita PRN BID PRN TP RASH 11/04/20 00:45 Polyethylene Glycol (miraLAX) 17 gm DAILY PO 11/04/20 09:00 11/27/20 08:10 Quetiapine Fumarate (SEROquel) 25 mg BID PO 11/04/20 09:00 11/15/20 21:52 DC 11/15/20 19:38 Quetiapine Fumarate (SEROquel) 100 mg TID PO 11/04/20 09:00 11/28/20 18:29 Trazodone HCl (Desyrel) 100 mg HS PO 11/04/20 21:00 11/28/20 18:30 Non-Formulary Medication (Ergocalciferol (Vitamin D2) (Vitamin D2)) 1,250 mcg WEEKLY PO 11/04/20 09:00 11/04/20 15:01 DC Citalopram Hydrobromide (CeleXA) 40 mg DAILY PO 11/04/20 09:00 11/05/20 18:18 DC 11/05/20 08:22 Fenofibrate (Tricor) 145 mg DAILY PO 11/04/20 09:00 11/28/20 08:05 Non-Formulary Medication (Guanfacine Hcl ) 1 tab BID PO 11/04/20 09:00 11/08/20 18:18 DC Non-Formulary Medication (Insulin Aspart (Novolog)) 9 unit TIDWMEALS SQ 11/04/20 08:00 UNV Non-Formulary Medication (Insulin Glargine,Hum.rec.anlog (Lantus Solostar)) 20 unit QHS SQ 11/04/20 21:00 UNV Non-Formulary Medication (Menthol/Zinc Oxide (Calmoseptine Ointment)) 71 gm BID TP 11/04/20 09:00 11/04/20 14:56 DC Insulin Glargine (Lantus Syringe) 20 unit QHS SQ 11/04/20 21:00 11/19/20 10:32 DC 11/18/20 20:56 Insulin Human Lispro (HumaLOG) 9 units TIDWMEALS SQ 11/04/20 08:00 11/19/20 10:33 DC 11/19/20 08:00 Vitamin D (Vitamin D3) 50,000 unit WEEKLY PO 11/05/20 09:00 11/26/20 08:57 Diphenhydramine HCl (Benadryl) 50 mg PRN Q6HRS PRN PO RASH 11/05/20 11:30 11/17/20 17:46 Oxcarbazepine (Trileptal) 300 mg BID PO 11/05/20 21:00 11/07/20 16:24 DC 11/07/20 09:08 Fluvoxamine Maleate (Luvox) 50 mg QHS PO 11/05/20 21:00 11/13/20 17:24 DC 11/12/20 19:30 Levofloxacin (Levaquin) 250 mg DAILY06 PO 11/06/20 16:00 11/10/20 06:01 DC 11/10/20 05:30 Lactobacillus Rhamnosus (Culturelle) 1 cap BID PO 11/07/20 21:00 11/28/20 18:29 Olanzapine (ZyPREXA ZYDIS) 5 mg PRN Q2HR PRN PO PSYCHOSIS 11/08/20 17:00 11/28/20 11:53 Carbamazepine (TEGretol) 200 mg QHS PO 11/08/20 21:00 11/28/20 18:29 Carbamazepine (TEGretol) 100 mg DAILY PO 11/12/20 09:00 11/28/20 08:05 Fluvoxamine Maleate (Luvox) 75 mg QHS PO 11/13/20 21:00 11/16/20 17:16 DC 11/15/20 19:38 Quetiapine Fumarate (SEROquel) 50 mg DAILY PO 11/16/20 09:00 11/28/20 08:05 Quetiapine Fumarate (SEROquel) 25 mg BID@1300,1700 PO 11/16/20 13:00 11/28/20 17:19 Fluvoxamine Maleate (Luvox) 100 mg QHS PO 11/16/20 21:00 11/28/20 18:29 Insulin Glargine (Lantus Syringe) 30 unit QHS SQ 11/19/20 21:00 11/28/20 20:41 Insulin Human Lispro (HumaLOG) 12 units TIDWMEALS SQ 11/19/20 12:00 11/28/20 17:20 Trazodone HCl (Desyrel) 25 mg 1700 PO 11/24/20 17:00 11/23/20 17:15 DC Trazodone HCl (Desyrel) 25 mg 1700 PO 11/23/20 17:15 11/28/20 17:19 Trazodone HCl (Desyrel) 50 mg PRN QHS PRN PO INSOMNIA, MAY REPEAT X1 11/23/20 21:15 11/26/20 01:47 I have reviewed the current psychotropics carefully including drug interactions. Risk benefit ratio favors no change other than as noted in my dictated progress note. Diagnosis: Problems: (1) Bipolar affective, mixed, sev w/ psych (2) Impulse control disorder (3) Obsessive compulsive disorder (4) Anxiety disorder, unspecified IDA LAINEZ MD Nov 29, 2020 06:58
--- NOTE | 2020-11-29 07:34 | PDOC ---
Exam Note: Marcelo Note: This note is a late entry for 11/26/2020 covers elements not covered in my initial note. Subjective: The patient was seen face to face in the evening of 11/26/2020 with Janice HOLLINGSWORTH, discussed and reviewed the chart. The patient just slept 1 hour previous night. She continues to have some obsessiveness, intermittent yelling but better than before. Review of Systems: Ambulation impaired with walker. No CV, , pulmonary, eye, ENT system symptoms on review. Mental Status Exam: The patient is oriented to herself and situation. Speech is coherent, repetitive. She has typical facial mannerisms, less agitated. Abstraction is fair. Computation is impaired. Language function intact. Atte ntion span is short. No suicidal or homicidal ideation. Laboratory Data: Reviewed. Impression: Bipolar 1 disorder mixed with psychotic features. OCD. Anxiety disorder unspecified. Impulse control disorder unspecified. Plan: No change from initial note. Assessment: Vital Signs/I&O: Vital Signs Date Time Temp Pulse Resp B/P (MAP) Pulse Ox O2 Delivery O2 Flow Rate FiO2 11/29/20 06:20 98.5 77 16 153/74 (100) 96 Room Air I & O 11/28/20 11/28/20 11/29/20 15:00 23:00 07:00 Intake Total 720 ml 360 ml 120 ml Balance 720 ml 360 ml 120 ml Labs: Laboratory Tests Test 11/28/20 12:00 11/28/20 16:43 11/28/20 19:26 11/28/20 19:43 Glucose (Fingerstick) 247 mg/dL (70-99) H 138 mg/dL (70-99) H 93 mg/dL (70-99) Urine Collection Type Clean catch Urine Color Yellow Urine Clarity Clear Urine pH 5.5 Urine Specific [place] 1.025 Urine Protein Neg (NEG-TRACE) Urine Glucose (UA) Neg mg/dL (NEG) Urine Ketones (Stick) Neg mg/dL (NEG) Urine Blood Neg (NEG) Urine Nitrite Neg (NEG) Urine Bilirubin Neg (NEG) Urine Urobilinogen Dipstick 0.2 mg/dL (0.2 mg/dL) Urine Leukocyte Esterase Neg (NEG) Urine RBC Occ /HPF (0-2) Urine WBC Occ /HPF (0-4) Urine Squamous Epithelial Cells Few /LPF Urine Bacteria Few /HPF (0-FEW) Test 11/29/20 07:27 Glucose (Fingerstick) 118 mg/dL (70-99) H Current Medications: Meds: Laboratory Tests Test 11/28/20 12:00 11/28/20 16:43 11/28/20 19:26 11/28/20 19:43 Glucose (Fingerstick) 247 mg/dL 138 mg/dL 93 mg/dL Urine Collection Type Clean catch Urine Color Yellow Urine Clarity Clear Urine pH 5.5 Urine Specific [place] 1.025 Urine Protein Neg Urine Glucose (UA) Neg mg/dL Urine Ketones (Stick) Neg mg/dL Urine Blood Neg Urine Nitrite Neg Urine Bilirubin Neg Urine Urobilinogen Dipstick 0.2 mg/dL Urine Leukocyte Esterase Neg Urine RBC Occ /HPF Urine WBC Occ /HPF Urine Squamous Epithelial Cells Few /LPF Urine Bacteria Few /HPF Test 11/29/20 07:27 Glucose (Fingerstick) 118 mg/dL Current Medications Medications (Trade) Dose Ordered Sig/Carmina Route PRN Reason Start Time Stop Time Status Last Admin Dose Admin Acetaminophen (Tylenol) 650 mg PRN Q6HRS PRN PO MILD PAIN / TEMP > 100.3'F 11/03/20 23:15 Cancel Multi-Ingredient Ointment (Analgesic [place]) 1 estrellita PRN QID PRN TP MUSCLE PAIN 11/03/20 23:15 Al Hydroxide/Mg Hydroxide (Mylanta Plus Xs) 15 ml PRN AFTMEALHC PRN PO DYSPEPSIA 11/03/20 23:15 11/23/20 16:07 Magnesium Hydroxide (Milk Of Magnesia) 2,400 mg PRN QHS PRN PO CONSTIPATION 11/03/20 23:15 Levothyroxine Sodium (Synthroid) 25 mcg DAILY06 PO 11/04/20 06:00 11/29/20 05:36 Pantoprazole Sodium (Protonix) 40 mg DAILYAC PO 11/04/20 07:30 11/28/20 08:05 Acetaminophen (Tylenol) 650 mg PRN Q4HRS PRN PO PAIN 11/04/20 00:45 11/24/20 18:37 Aspirin (Aspirin Chewable) 81 mg DAILYWBKFT PO 11/04/20 08:00 11/28/20 08:05 Hydroxyzine Pamoate (Vistaril) 25 mg PRN Q6HRS PRN PO agitation/anxiety 11/04/20 00:45 11/27/20 19:25 Melatonin (Melatonin) 3 mg HS PO 11/04/20 21:00 11/28/20 18:29 Nystatin (Nystop) 1 estrellita PRN BID PRN TP RASH 11/04/20 00:45 Polyethylene Glycol (miraLAX) 17 gm DAILY PO 11/04/20 09:00 11/27/20 08:10 Quetiapine Fumarate (SEROquel) 25 mg BID PO 11/04/20 09:00 11/15/20 21:52 DC 11/15/20 19:38 Quetiapine Fumarate (SEROquel) 100 mg TID PO 11/04/20 09:00 11/28/20 18:29 Trazodone HCl (Desyrel) 100 mg HS PO 11/04/20 21:00 11/28/20 18:30 Non-Formulary Medication (Ergocalciferol (Vitamin D2) (Vitamin D2)) 1,250 mcg WEEKLY PO 11/04/20 09:00 11/04/20 15:01 DC Citalopram Hydrobromide (CeleXA) 40 mg DAILY PO 11/04/20 09:00 11/05/20 18:18 DC 11/05/20 08:22 Fenofibrate (Tricor) 145 mg DAILY PO 11/04/20 09:00 11/28/20 08:05 Non-Formulary Medication (Guanfacine Hcl ) 1 tab BID PO 11/04/20 09:00 11/08/20 18:18 DC Non-Formulary Medication (Insulin Aspart (Novolog)) 9 unit TIDWMEALS SQ 11/04/20 08:00 UNV Non-Formulary Medication (Insulin Glargine,Hum.rec.anlog (Lantus Solostar)) 20 unit QHS SQ 11/04/20 21:00 UNV Non-Formulary Medication (Menthol/Zinc Oxide (Calmoseptine Ointment)) 71 gm BID TP 11/04/20 09:00 11/04/20 14:56 DC Insulin Glargine (Lantus Syringe) 20 unit QHS SQ 11/04/20 21:00 11/19/20 10:32 DC 11/18/20 20:56 Insulin Human Lispro (HumaLOG) 9 units TIDWMEALS SQ 11/04/20 08:00 11/19/20 10:33 DC 11/19/20 08:00 Vitamin D (Vitamin D3) 50,000 unit WEEKLY PO 11/05/20 09:00 11/26/20 08:57 Diphenhydramine HCl (Benadryl) 50 mg PRN Q6HRS PRN PO RASH 11/05/20 11:30 11/17/20 17:46 Oxcarbazepine (Trileptal) 300 mg BID PO 11/05/20 21:00 11/07/20 16:24 DC 11/07/20 09:08 Fluvoxamine Maleate (Luvox) 50 mg QHS PO 11/05/20 21:00 11/13/20 17:24 DC 11/12/20 19:30 Levofloxacin (Levaquin) 250 mg DAILY06 PO 11/06/20 16:00 11/10/20 06:01 DC 11/10/20 05:30 Lactobacillus Rhamnosus (Culturelle) 1 cap BID PO 11/07/20 21:00 11/28/20 18:29 Olanzapine (ZyPREXA ZYDIS) 5 mg PRN Q2HR PRN PO PSYCHOSIS 11/08/20 17:00 11/28/20 11:53 Carbamazepine (TEGretol) 200 mg QHS PO 11/08/20 21:00 11/28/20 18:29 Carbamazepine (TEGretol) 100 mg DAILY PO 11/12/20 09:00 11/28/20 08:05 Fluvoxamine Maleate (Luvox) 75 mg QHS PO 11/13/20 21:00 11/16/20 17:16 DC 11/15/20 19:38 Quetiapine Fumarate (SEROquel) 50 mg DAILY PO 11/16/20 09:00 11/28/20 08:05 Quetiapine Fumarate (SEROquel) 25 mg BID@1300,1700 PO 11/16/20 13:00 11/28/20 17:19 Fluvoxamine Maleate (Luvox) 100 mg QHS PO 11/16/20 21:00 11/28/20 18:29 Insulin Glargine (Lantus Syringe) 30 unit QHS SQ 11/19/20 21:00 11/28/20 20:41 Insulin Human Lispro (HumaLOG) 12 units TIDWMEALS SQ 11/19/20 12:00 11/28/20 17:20 Trazodone HCl (Desyrel) 25 mg 1700 PO 11/24/20 17:00 11/23/20 17:15 DC Trazodone HCl (Desyrel) 25 mg 1700 PO 11/23/20 17:15 11/28/20 17:19 Trazodone HCl (Desyrel) 50 mg PRN QHS PRN PO INSOMNIA, MAY REPEAT X1 11/23/20 21:15 11/26/20 01:47 I have reviewed the current psychotropics carefully including drug interactions. Risk benefit ratio favors no change other than as noted in my dictated progress note. Diagnosis: Problems: (1) Obsessive compulsive disorder (2) Impulse control disorder (3) Bipolar affective, mixed, sev w/ psych (4) Anxiety disorder, unspecified IDA LAINEZ MD Nov 29, 2020 07:34
[2020-11-29] MEDS: QUEtiapine 50 MG TABLET. PO SCH (07:51)
[2020-11-29] MEDS: ASPIRIN CHEWABLE 81 MG TABLET. PO SCH (07:51)
[2020-11-29] MEDS: QUEtiapine 100 MG TABLET. PO SCH ×3 (07:51→19:48)
[2020-11-29] MEDS: PANTOPRAZOLE 40 MG TABLET. PO SCH (07:51)
[2020-11-29] MEDS: LACTOBACILLUS RHAMNOSUS GG 1 CAPSULE. PO SCH ×2 (07:51→19:48)
[2020-11-29] MEDS: FENOFIBRATE NANOCRYSTALLIZED 145 MG TABLET PO SCH (07:51)
[2020-11-29] MEDS: carBAMazepine 100 MG TAB.CHEW PO SCH (07:52)
[2020-11-29] MEDS: POLYETHYLENE GLYCOL 3350 17 GM PACKET. PO SCH (07:55)
[2020-11-29] MEDS: INSULIN LISPRO 300 UNITS/3 ML VIAL. SQ SCH ×3 (08:02→18:01)
--- NOTE | 2020-11-29 08:02 | PDOC ---
Exam Note: Marcelo Note: This note is a late entry for 11/27/2020 covers elements not covered in my initial note. Subjective: The patient was seen face to face in the evening of 11/27/2020 with Ferny HOLLINGSWORTH, discussed and reviewed the chart. The patient slept 6-3/4 hours previous night. She did well in the morning, was calm previous evening, but during the day later she was yelling out. By the time I met with her in the evening, she was in the [place] hallway for extremely loud, repetitive, disruptive, yelling as she wanted to call her sister and had to wait till she was able to calm down to be able to do this and would not accept this. Often she refuses to do things she is fully capable of doing for herself. Review of Systems: Ambulation impaired with walker. No CV, , pulmonary, eye, ENT system symptoms on review. Mental Status Exam: The patient is awake, alert and oriented. I met with the patient in the [facility]. After we talked for a short while, addressed her obsessive questions about discharge plans. She was able to calm down to await her turn to call her sister Ricky. Abstraction is fair. Computation is impaired. Language function intact. Attention span is short. No suicidal or homicidal ideation. Laboratory Data: Reviewed. Impression: Bipolar 1 disorder mixed with psychotic features. OCD. Anxiety disorder unspecified. Impulse control disorder unspecified. Plan: No change from initial note. Assessment: Vital Signs/I&O: Vital Signs Date Time Temp Pulse Resp B/P (MAP) Pulse Ox O2 Delivery O2 Flow Rate FiO2 11/29/20 06:20 98.5 77 16 153/74 (100) 96 Room Air I & O 11/28/20 11/28/20 11/29/20 15:00 23:00 07:00 Intake Total 720 ml 360 ml 120 ml Balance 720 ml 360 ml 120 ml Labs: Laboratory Tests Test 11/28/20 12:00 11/28/20 16:43 11/28/20 19:26 11/28/20 19:43 Glucose (Fingerstick) 247 mg/dL (70-99) H 138 mg/dL (70-99) H 93 mg/dL (70-99) Urine Collection Type Clean catch Urine Color Yellow Urine Clarity Clear Urine pH 5.5 Urine Specific [place] 1.025 Urine Protein Neg (NEG-TRACE) Urine Glucose (UA) Neg mg/dL (NEG) Urine Ketones (Stick) Neg mg/dL (NEG) Urine Blood Neg (NEG) Urine Nitrite Neg (NEG) Urine Bilirubin Neg (NEG) Urine Urobilinogen Dipstick 0.2 mg/dL (0.2 mg/dL) Urine Leukocyte Esterase Neg (NEG) Urine RBC Occ /HPF (0-2) Urine WBC Occ /HPF (0-4) Urine Squamous Epithelial Cells Few /LPF Urine Bacteria Few /HPF (0-FEW) Test 11/29/20 07:27 Glucose (Fingerstick) 118 mg/dL (70-99) H Current Medications: Meds: Laboratory Tests Test 11/28/20 12:00 11/28/20 16:43 11/28/20 19:26 11/28/20 19:43 Glucose (Fingerstick) 247 mg/dL 138 mg/dL 93 mg/dL Urine Collection Type Clean catch Urine Color Yellow Urine Clarity Clear Urine pH 5.5 Urine Specific [place] 1.025 Urine Protein Neg Urine Glucose (UA) Neg mg/dL Urine Ketones (Stick) Neg mg/dL Urine Blood Neg Urine Nitrite Neg Urine Bilirubin Neg Urine Urobilinogen Dipstick 0.2 mg/dL Urine Leukocyte Esterase Neg Urine RBC Occ /HPF Urine WBC Occ /HPF Urine Squamous Epithelial Cells Few /LPF Urine Bacteria Few /HPF Test 11/29/20 07:27 Glucose (Fingerstick) 118 mg/dL Current Medications Medications (Trade) Dose Ordered Sig/Carmina Route PRN Reason Start Time Stop Time Status Last Admin Dose Admin Acetaminophen (Tylenol) 650 mg PRN Q6HRS PRN PO MILD PAIN / TEMP > 100.3'F 11/03/20 23:15 Cancel Multi-Ingredient Ointment (Analgesic [place]) 1 estrellita PRN QID PRN TP MUSCLE PAIN 11/03/20 23:15 Al Hydroxide/Mg Hydroxide (Mylanta Plus Xs) 15 ml PRN AFTMEALHC PRN PO DYSPEPSIA 11/03/20 23:15 11/23/20 16:07 Magnesium Hydroxide (Milk Of Magnesia) 2,400 mg PRN QHS PRN PO CONSTIPATION 11/03/20 23:15 Levothyroxine Sodium (Synthroid) 25 mcg DAILY06 PO 11/04/20 06:00 11/29/20 05:36 Pantoprazole Sodium (Protonix) 40 mg DAILYAC PO 11/04/20 07:30 11/28/20 08:05 Acetaminophen (Tylenol) 650 mg PRN Q4HRS PRN PO PAIN 11/04/20 00:45 11/24/20 18:37 Aspirin (Aspirin Chewable) 81 mg DAILYWBKFT PO 11/04/20 08:00 11/28/20 08:05 Hydroxyzine Pamoate (Vistaril) 25 mg PRN Q6HRS PRN PO agitation/anxiety 11/04/20 00:45 11/27/20 19:25 Melatonin (Melatonin) 3 mg HS PO 11/04/20 21:00 11/28/20 18:29 Nystatin (Nystop) 1 estrellita PRN BID PRN TP RASH 11/04/20 00:45 Polyethylene Glycol (miraLAX) 17 gm DAILY PO 11/04/20 09:00 11/27/20 08:10 Quetiapine Fumarate (SEROquel) 25 mg BID PO 11/04/20 09:00 11/15/20 21:52 DC 11/15/20 19:38 Quetiapine Fumarate (SEROquel) 100 mg TID PO 11/04/20 09:00 11/28/20 18:29 Trazodone HCl (Desyrel) 100 mg HS PO 11/04/20 21:00 11/28/20 18:30 Non-Formulary Medication (Ergocalciferol (Vitamin D2) (Vitamin D2)) 1,250 mcg WEEKLY PO 11/04/20 09:00 11/04/20 15:01 DC Citalopram Hydrobromide (CeleXA) 40 mg DAILY PO 11/04/20 09:00 11/05/20 18:18 DC 11/05/20 08:22 Fenofibrate (Tricor) 145 mg DAILY PO 11/04/20 09:00 11/28/20 08:05 Non-Formulary Medication (Guanfacine Hcl ) 1 tab BID PO 11/04/20 09:00 11/08/20 18:18 DC Non-Formulary Medication (Insulin Aspart (Novolog)) 9 unit TIDWMEALS SQ 11/04/20 08:00 UNV Non-Formulary Medication (Insulin Glargine,Hum.rec.anlog (Lantus Solostar)) 20 unit QHS SQ 11/04/20 21:00 UNV Non-Formulary Medication (Menthol/Zinc Oxide (Calmoseptine Ointment)) 71 gm BID TP 11/04/20 09:00 11/04/20 14:56 DC Insulin Glargine (Lantus Syringe) 20 unit QHS SQ 11/04/20 21:00 11/19/20 10:32 DC 11/18/20 20:56 Insulin Human Lispro (HumaLOG) 9 units TIDWMEALS SQ 11/04/20 08:00 11/19/20 10:33 DC 11/19/20 08:00 Vitamin D (Vitamin D3) 50,000 unit WEEKLY PO 11/05/20 09:00 11/26/20 08:57 Diphenhydramine HCl (Benadryl) 50 mg PRN Q6HRS PRN PO RASH 11/05/20 11:30 11/17/20 17:46 Oxcarbazepine (Trileptal) 300 mg BID PO 11/05/20 21:00 11/07/20 16:24 DC 11/07/20 09:08 Fluvoxamine Maleate (Luvox) 50 mg QHS PO 11/05/20 21:00 11/13/20 17:24 DC 11/12/20 19:30 Levofloxacin (Levaquin) 250 mg DAILY06 PO 11/06/20 16:00 11/10/20 06:01 DC 11/10/20 05:30 Lactobacillus Rhamnosus (Culturelle) 1 cap BID PO 11/07/20 21:00 11/28/20 18:29 Olanzapine (ZyPREXA ZYDIS) 5 mg PRN Q2HR PRN PO PSYCHOSIS 11/08/20 17:00 11/28/20 11:53 Carbamazepine (TEGretol) 200 mg QHS PO 11/08/20 21:00 11/28/20 18:29 Carbamazepine (TEGretol) 100 mg DAILY PO 11/12/20 09:00 11/28/20 08:05 Fluvoxamine Maleate (Luvox) 75 mg QHS PO 11/13/20 21:00 11/16/20 17:16 DC 11/15/20 19:38 Quetiapine Fumarate (SEROquel) 50 mg DAILY PO 11/16/20 09:00 11/28/20 08:05 Quetiapine Fumarate (SEROquel) 25 mg BID@1300,1700 PO 11/16/20 13:00 11/28/20 17:19 Fluvoxamine Maleate (Luvox) 100 mg QHS PO 11/16/20 21:00 11/28/20 18:29 Insulin Glargine (Lantus Syringe) 30 unit QHS SQ 11/19/20 21:00 11/28/20 20:41 Insulin Human Lispro (HumaLOG) 12 units TIDWMEALS SQ 11/19/20 12:00 11/28/20 17:20 Trazodone HCl (Desyrel) 25 mg 1700 PO 11/24/20 17:00 11/23/20 17:15 DC Trazodone HCl (Desyrel) 25 mg 1700 PO 11/23/20 17:15 11/28/20 17:19 Trazodone HCl (Desyrel) 50 mg PRN QHS PRN PO INSOMNIA, MAY REPEAT X1 11/23/20 21:15 11/26/20 01:47 I have reviewed the current psychotropics carefully including drug interactions. Risk benefit ratio favors no change other than as noted in my dictated progress note. Diagnosis: Problems: (1) Obsessive compulsive disorder (2) Bipolar affective, mixed, sev w/ psych (3) Anxiety disorder, unspecified (4) Impulse control disorder IDA LAINEZ MD Nov 29, 2020 08:02
[2020-11-29 08:14] LABS: BASO # 0.1 x10^3/uL (0.0-0.2); BASO % 1 % (0-3); EOS # 0.6 x10^3/uL (0.0-0.7); EOS % 9 % (0-3); HEMATOCRIT 39.9 % (36.0-47.0); HEMOGLOBIN 13.1 g/dL (12.0-15.5); LYMPH # 2.1 x10^3/uL (1.0-4.8); LYMPH % 34 % (24-48); MEAN CORPUSCULAR HEMOGLOBIN 30 pg (25-35); MEAN CORPUSCULAR HGB CONC 33 g/dL (31-37); MEAN CORPUSCULAR VOLUME 91 fL (79-100); MONO # 0.4 x10^3/uL (0.0-1.1); MONO % 7 % (0-9); NEUT % 48 % (31-73); PLATELET COUNT 188 x10^3/uL (140-400); RED CELL DISTRIBUTION WIDTH 13.8 % (11.5-14.5); WHITE BLOOD COUNT 6.2 x10^3/uL (4.0-11.0)
[2020-11-29 08:28] LABS: ALBUMIN 3.4 g/dL (3.4-5.0); ALBUMIN/GLOBULIN RATIO 0.9 (1.0-1.7); CALCIUM 8.5 mg/dL (8.5-10.1); CREATININE 0.9 mg/dL (0.6-1.0); GFR 61.2; TOTAL BILIRUBIN 0.4 mg/dL (0.2-1.0); TOTAL PROTEIN 7.3 g/dL (6.4-8.2)
--- NOTE | 2020-11-29 08:28 | PDOC ---
Exam Note: Marcelo Note: This note is a late entry for 11/28/2020 covers elements not covered in my initial note. Subjective: The patient was seen face to face in the evening of 11/28/2020 with Ferny HOLLINGSWORTH, discussed and reviewed the chart. The patient slept 6 hours previous night. Previous night the patient was yelling, somewhat anxious, restless. Received hydroxyzine, then slept okay. She has been obsessed about wanting to call her sister Ricky during the day today. Towards the evening she was calm in her room as I met with her but later I could hear her yelling repeatedly anxious. We will check her UA to make sure recurrent UTI does not explain her symptoms. Review of Systems: Ambulation impaired with walker. No CV, , pulmonary, eye, ENT system symptoms on review. Mental Status Exam: The patient is oriented to herself and situation. Speech is coherent, rapid at times. Abstraction is fair. Computation is impaired. Language function intact. Attention span is short. Mood and affect remains anxious, labile but improved. Laboratory Data: Reviewed. Impression: Bipolar 1 disorder mixed with psychotic features. OCD. Anxiety disorder unspecified. Impulse control disorder unspecified. Plan: Continue current psychotropics. If UA is negative, we may consider increasing the Luvox for her OCD symptoms. Tegretol level is therapeutic. Continue rest unchanged. Assessment: Vital Signs/I&O: Vital Signs Date Time Temp Pulse Resp B/P (MAP) Pulse Ox O2 Delivery O2 Flow Rate FiO2 11/29/20 06:20 98.5 77 16 153/74 (100) 96 Room Air I & O 11/28/20 11/28/20 11/29/20 15:00 23:00 07:00 Intake Total 720 ml 360 ml 120 ml Balance 720 ml 360 ml 120 ml Labs: Laboratory Tests Test 11/28/20 12:00 11/28/20 16:43 11/28/20 19:26 11/28/20 19:43 Glucose (Fingerstick) 247 mg/dL (70-99) H 138 mg/dL (70-99) H 93 mg/dL (70-99) Urine Collection Type Clean catch Urine Color Yellow Urine Clarity Clear Urine pH 5.5 Urine Specific [place] 1.025 Urine Protein Neg (NEG-TRACE) Urine Glucose (UA) Neg mg/dL (NEG) Urine Ketones (Stick) Neg mg/dL (NEG) Urine Blood Neg (NEG) Urine Nitrite Neg (NEG) Urine Bilirubin Neg (NEG) Urine Urobilinogen Dipstick 0.2 mg/dL (0.2 mg/dL) Urine Leukocyte Esterase Neg (NEG) Urine RBC Occ /HPF (0-2) Urine WBC Occ /HPF (0-4) Urine Squamous Epithelial Cells Few /LPF Urine Bacteria Few /HPF (0-FEW) Test 11/29/20 07:27 11/29/20 08:01 Glucose (Fingerstick) 118 mg/dL (70-99) H White Blood Count 6.2 x10^3/uL (4.0-11.0) Red Blood Count 4.40 x10^6/uL (3.50-5.40) Hemoglobin 13.1 g/dL (12.0-15.5) Hematocrit 39.9 % (36.0-47.0) Mean Corpuscular Volume 91 fL (79-100) Mean Corpuscular Hemoglobin 30 pg (25-35) Mean Corpuscular Hemoglobin Concent 33 g/dL (31-37) Red Cell Distribution Width 13.8 % (11.5-14.5) Platelet Count 188 x10^3/uL (140-400) Neutrophils (%) (Auto) 48 % (31-73) Lymphocytes (%) (Auto) 34 % (24-48) Monocytes (%) (Auto) 7 % (0-9) Eosinophils (%) (Auto) 9 % (0-3) H Basophils (%) (Auto) 1 % (0-3) Neutrophils # (Auto) 3.0 x10^3uL (1.8-7.7) Lymphocytes # (Auto) 2.1 x10^3/uL (1.0-4.8) Monocytes # (Auto) 0.4 x10^3/uL (0.0-1.1) Eosinophils # (Auto) 0.6 x10^3/uL (0.0-0.7) Basophils # (Auto) 0.1 x10^3/uL (0.0-0.2) Current Medications: Meds: Laboratory Tests Test 11/28/20 12:00 11/28/20 16:43 11/28/20 19:26 11/28/20 19:43 Glucose (Fingerstick) 247 mg/dL 138 mg/dL 93 mg/dL Urine Collection Type Clean catch Urine Color Yellow Urine Clarity Clear Urine pH 5.5 Urine Specific [place] 1.025 Urine Protein Neg Urine Glucose (UA) Neg mg/dL Urine Ketones (Stick) Neg mg/dL Urine Blood Neg Urine Nitrite Neg Urine Bilirubin Neg Urine Urobilinogen Dipstick 0.2 mg/dL Urine Leukocyte Esterase Neg Urine RBC Occ /HPF Urine WBC Occ /HPF Urine Squamous Epithelial Cells Few /LPF Urine Bacteria Few /HPF Test 11/29/20 07:27 11/29/20 08:01 Glucose (Fingerstick) 118 mg/dL White Blood Count 6.2 x10^3/uL Red Blood Count 4.40 x10^6/uL Hemoglobin 13.1 g/dL Hematocrit 39.9 % Mean Corpuscular Volume 91 fL Mean Corpuscular Hemoglobin 30 pg Mean Corpuscular Hemoglobin Concent 33 g/dL Red Cell Distribution Width 13.8 % Platelet Count 188 x10^3/uL Neutrophils (%) (Auto) 48 % Lymphocytes (%) (Auto) 34 % Monocytes (%) (Auto) 7 % Eosinophils (%) (Auto) 9 % Basophils (%) (Auto) 1 % Neutrophils # (Auto) 3.0 x10^3uL Lymphocytes # (Auto) 2.1 x10^3/uL Monocytes # (Auto) 0.4 x10^3/uL Eosinophils # (Auto) 0.6 x10^3/uL Basophils # (Auto) 0.1 x10^3/uL Current Medications Medications (Trade) Dose Ordered Sig/Carmina Route PRN Reason Start Time Stop Time Status Last Admin Dose Admin Acetaminophen (Tylenol) 650 mg PRN Q6HRS PRN PO MILD PAIN / TEMP > 100.3'F 11/03/20 23:15 Cancel Multi-Ingredient Ointment (Analgesic [place]) 1 estrellita PRN QID PRN TP MUSCLE PAIN 11/03/20 23:15 Al Hydroxide/Mg Hydroxide (Mylanta Plus Xs) 15 ml PRN AFTMEALHC PRN PO DYSPEPSIA 11/03/20 23:15 11/23/20 16:07 Magnesium Hydroxide (Milk Of Magnesia) 2,400 mg PRN QHS PRN PO CONSTIPATION 11/03/20 23:15 Levothyroxine Sodium (Synthroid) 25 mcg DAILY06 PO 11/04/20 06:00 11/29/20 05:36 Pantoprazole Sodium (Protonix) 40 mg DAILYAC PO 11/04/20 07:30 11/29/20 07:51 Acetaminophen (Tylenol) 650 mg PRN Q4HRS PRN PO PAIN 11/04/20 00:45 11/24/20 18:37 Aspirin (Aspirin Chewable) 81 mg DAILYWBKFT PO 11/04/20 08:00 11/29/20 07:51 Hydroxyzine Pamoate (Vistaril) 25 mg PRN Q6HRS PRN PO agitation/anxiety 11/04/20 00:45 11/27/20 19:25 Melatonin (Melatonin) 3 mg HS PO 11/04/20 21:00 11/28/20 18:29 Nystatin (Nystop) 1 estrellita PRN BID PRN TP RASH 11/04/20 00:45 Polyethylene Glycol (miraLAX) 17 gm DAILY PO 11/04/20 09:00 11/29/20 07:55 Quetiapine Fumarate (SEROquel) 25 mg BID PO 11/04/20 09:00 11/15/20 21:52 DC 11/15/20 19:38 Quetiapine Fumarate (SEROquel) 100 mg TID PO 11/04/20 09:00 11/29/20 07:51 Trazodone HCl (Desyrel) 100 mg HS PO 11/04/20 21:00 11/28/20 18:30 Non-Formulary Medication (Ergocalciferol (Vitamin D2) (Vitamin D2)) 1,250 mcg WEEKLY PO 11/04/20 09:00 11/04/20 15:01 DC Citalopram Hydrobromide (CeleXA) 40 mg DAILY PO 11/04/20 09:00 11/05/20 18:18 DC 11/05/20 08:22 Fenofibrate (Tricor) 145 mg DAILY PO 11/04/20 09:00 11/29/20 07:51 Non-Formulary Medication (Guanfacine Hcl ) 1 tab BID PO 11/04/20 09:00 11/08/20 18:18 DC Non-Formulary Medication (Insulin Aspart (Novolog)) 9 unit TIDWMEALS SQ 11/04/20 08:00 UNV Non-Formulary Medication (Insulin Glargine,Hum.rec.anlog (Lantus Solostar)) 20 unit QHS SQ 11/04/20 21:00 UNV Non-Formulary Medication (Menthol/Zinc Oxide (Calmoseptine Ointment)) 71 gm BID TP 11/04/20 09:00 11/04/20 14:56 DC Insulin Glargine (Lantus Syringe) 20 unit QHS SQ 11/04/20 21:00 11/19/20 10:32 DC 11/18/20 20:56 Insulin Human Lispro (HumaLOG) 9 units TIDWMEALS SQ 11/04/20 08:00 11/19/20 10:33 DC 11/19/20 08:00 Vitamin D (Vitamin D3) 50,000 unit WEEKLY PO 11/05/20 09:00 11/26/20 08:57 Diphenhydramine HCl (Benadryl) 50 mg PRN Q6HRS PRN PO RASH 11/05/20 11:30 11/17/20 17:46 Oxcarbazepine (Trileptal) 300 mg BID PO 11/05/20 21:00 11/07/20 16:24 DC 11/07/20 09:08 Fluvoxamine Maleate (Luvox) 50 mg QHS PO 11/05/20 21:00 11/13/20 17:24 DC 11/12/20 19:30 Levofloxacin (Levaquin) 250 mg DAILY06 PO 11/06/20 16:00 11/10/20 06:01 DC 11/10/20 05:30 Lactobacillus Rhamnosus (Culturelle) 1 cap BID PO 11/07/20 21:00 11/29/20 07:51 Olanzapine (ZyPREXA ZYDIS) 5 mg PRN Q2HR PRN PO PSYCHOSIS 11/08/20 17:00 11/28/20 11:53 Carbamazepine (TEGretol) 200 mg QHS PO 11/08/20 21:00 11/28/20 18:29 Carbamazepine (TEGretol) 100 mg DAILY PO 11/12/20 09:00 11/29/20 07:52 Fluvoxamine Maleate (Luvox) 75 mg QHS PO 11/13/20 21:00 11/16/20 17:16 DC 11/15/20 19:38 Quetiapine Fumarate (SEROquel) 50 mg DAILY PO 11/16/20 09:00 11/29/20 07:51 Quetiapine Fumarate (SEROquel) 25 mg BID@1300,1700 PO 11/16/20 13:00 11/28/20 17:19 Fluvoxamine Maleate (Luvox) 100 mg QHS PO 11/16/20 21:00 11/28/20 18:29 Insulin Glargine (Lantus Syringe) 30 unit QHS SQ 11/19/20 21:00 11/28/20 20:41 Insulin Human Lispro (HumaLOG) 12 units TIDWMEALS SQ 11/19/20 12:00 11/29/20 08:02 Trazodone HCl (Desyrel) 25 mg 1700 PO 11/24/20 17:00 11/23/20 17:15 DC Trazodone HCl (Desyrel) 25 mg 1700 PO 11/23/20 17:15 11/28/20 17:19 Trazodone HCl (Desyrel) 50 mg PRN QHS PRN PO INSOMNIA, MAY REPEAT X1 11/23/20 21:15 11/26/20 01:47 I have reviewed the current psychotropics carefully including drug interactions. Risk benefit ratio favors no change other than as noted in my dictated progress note. Diagnosis: Problems: (1) Obsessive compulsive disorder (2) Impulse control disorder (3) Anxiety disorder, unspecified (4) Bipolar affective, mixed, sev w/ psych IDA LAINEZ MD Nov 29, 2020 08:28
--- NOTE | 2020-11-29 12:02 | NUR ---
See downtime med rec for am medication administration.
[2020-11-29] MEDS: QUEtiapine 25 MG TABLET. PO SCH ×2 (13:41→17:28)
[2020-11-29 16:09] VITALS: BP 136/77
--- NOTE | 2020-11-29 16:26 | NUR ---
Pt has been medication compliant. She is cooperative with her assessment. There are times when she asks for things and when they are not available she will continue to demand them and then state "I will tell Dr. Marvin on you!" She also cussed at [facility]'s today calling them "fuckers" PRN medication had to be given several times today see downtime form in chart.
[2020-11-29] MEDS: traZODone 50 MG TABLET. PO SCH (17:28)
[2020-11-29] MEDS: MELATONIN 3 MG TABLET PO SCH (19:48)
[2020-11-29] MEDS: traZODone 100 MG TABLET. PO SCH (19:48)
[2020-11-29] MEDS: carBAMazepine 200 MG TABLET PO SCH (19:48)
[2020-11-29] MEDS: hydrOXYzine PAMOATE 25 MG CAPSULE PO PRN (19:49)
--- NOTE | 2020-11-29 21:01 | PDOC ---
Exam Note: Marcelo Note: Please also refer to the separate dictated note~for this date of service dictated separately.~Patient seen individually. Discussed the patient with Nursing staff reviewed the chart.~Reviewed interim history and current functioning. Reviewed vital signs,~Labs/ Radiology~and current medications noted below. Continue current treatment with the changes noted in the dictated addendum note Assessment: Vital Signs/I&O: Vital Signs Date Time Temp Pulse Resp B/P (MAP) Pulse Ox O2 Delivery O2 Flow Rate FiO2 11/29/20 16:09 96.9 84 20 136/77 (96) 96 11/29/20 06:20 Room Air I & O 11/28/20 11/28/20 11/29/20 15:00 23:00 07:00 Intake Total 720 ml 360 ml 120 ml Balance 720 ml 360 ml 120 ml Labs: Laboratory Tests Test 11/29/20 07:27 11/29/20 08:01 11/29/20 12:02 11/29/20 16:44 Glucose (Fingerstick) 118 mg/dL (70-99) H 151 mg/dL (70-99) H 174 mg/dL (70-99) H White Blood Count 6.2 x10^3/uL (4.0-11.0) Red Blood Count 4.40 x10^6/uL (3.50-5.40) Hemoglobin 13.1 g/dL (12.0-15.5) Hematocrit 39.9 % (36.0-47.0) Mean Corpuscular Volume 91 fL (79-100) Mean Corpuscular Hemoglobin 30 pg (25-35) Mean Corpuscular Hemoglobin Concent 33 g/dL (31-37) Red Cell Distribution Width 13.8 % (11.5-14.5) Platelet Count 188 x10^3/uL (140-400) Neutrophils (%) (Auto) 48 % (31-73) Lymphocytes (%) (Auto) 34 % (24-48) Monocytes (%) (Auto) 7 % (0-9) Eosinophils (%) (Auto) 9 % (0-3) H Basophils (%) (Auto) 1 % (0-3) Neutrophils # (Auto) 3.0 x10^3uL (1.8-7.7) Lymphocytes # (Auto) 2.1 x10^3/uL (1.0-4.8) Monocytes # (Auto) 0.4 x10^3/uL (0.0-1.1) Eosinophils # (Auto) 0.6 x10^3/uL (0.0-0.7) Basophils # (Auto) 0.1 x10^3/uL (0.0-0.2) Sodium Level 140 mmol/L (136-145) Potassium Level 4.0 mmol/L (3.5-5.1) Chloride Level 103 mmol/L (98-107) Carbon Dioxide Level 30 mmol/L (21-32) Anion Gap 7 (6-14) Blood Urea Nitrogen 20 mg/dL (7-20) Creatinine 0.9 mg/dL (0.6-1.0) Estimated GFR (Cockcroft-Gault) 61.2 BUN/Creatinine Ratio 22 (6-20) H Glucose Level 178 mg/dL (70-99) H Calcium Level 8.5 mg/dL (8.5-10.1) Total Bilirubin 0.4 mg/dL (0.2-1.0) Aspartate Amino Transferase (AST) 30 U/L (15-37) Alanine Aminotransferase (ALT) 26 U/L (14-59) Alkaline Phosphatase 73 U/L (46-116) Total Protein 7.3 g/dL (6.4-8.2) Albumin 3.4 g/dL (3.4-5.0) Albumin/Globulin Ratio 0.9 (1.0-1.7) L Test 11/29/20 19:19 Glucose (Fingerstick) 135 mg/dL (70-99) H Current Medications: Meds: Laboratory Tests Test 11/29/20 07:27 11/29/20 08:01 11/29/20 12:02 11/29/20 16:44 Glucose (Fingerstick) 118 mg/dL 151 mg/dL 174 mg/dL White Blood Count 6.2 x10^3/uL Red Blood Count 4.40 x10^6/uL Hemoglobin 13.1 g/dL Hematocrit 39.9 % Mean Corpuscular Volume 91 fL Mean Corpuscular Hemoglobin 30 pg Mean Corpuscular Hemoglobin Concent 33 g/dL Red Cell Distribution Width 13.8 % Platelet Count 188 x10^3/uL Neutrophils (%) (Auto) 48 % Lymphocytes (%) (Auto) 34 % Monocytes (%) (Auto) 7 % Eosinophils (%) (Auto) 9 % Basophils (%) (Auto) 1 % Neutrophils # (Auto) 3.0 x10^3uL Lymphocytes # (Auto) 2.1 x10^3/uL Monocytes # (Auto) 0.4 x10^3/uL Eosinophils # (Auto) 0.6 x10^3/uL Basophils # (Auto) 0.1 x10^3/uL Sodium Level 140 mmol/L Potassium Level 4.0 mmol/L Chloride Level 103 mmol/L Carbon Dioxide Level 30 mmol/L Anion Gap 7 Blood Urea Nitrogen 20 mg/dL Creatinine 0.9 mg/dL Estimated GFR (Cockcroft-Gault) 61.2 BUN/Creatinine Ratio 22 Glucose Level 178 mg/dL Calcium Level 8.5 mg/dL Total Bilirubin 0.4 mg/dL Aspartate Amino Transf (AST/SGOT) 30 U/L Alanine Aminotransferase (ALT/SGPT) 26 U/L Alkaline Phosphatase 73 U/L Total Protein 7.3 g/dL Albumin 3.4 g/dL Albumin/Globulin Ratio 0.9 Test 11/29/20 19:19 Glucose (Fingerstick) 135 mg/dL Current Medications Medications (Trade) Dose Ordered Sig/Carmina Route PRN Reason Start Time Stop Time Status Last Admin Dose Admin Acetaminophen (Tylenol) 650 mg PRN Q6HRS PRN PO MILD PAIN / TEMP > 100.3'F 11/03/20 23:15 Cancel Multi-Ingredient Ointment (Analgesic [place]) 1 estrellita PRN QID PRN TP MUSCLE PAIN 11/03/20 23:15 Al Hydroxide/Mg Hydroxide (Mylanta Plus Xs) 15 ml PRN AFTMEALHC PRN PO DYSPEPSIA 11/03/20 23:15 11/23/20 16:07 Magnesium Hydroxide (Milk Of Magnesia) 2,400 mg PRN QHS PRN PO CONSTIPATION 11/03/20 23:15 Levothyroxine Sodium (Synthroid) 25 mcg DAILY06 PO 11/04/20 06:00 11/29/20 05:36 Pantoprazole Sodium (Protonix) 40 mg DAILYAC PO 11/04/20 07:30 11/29/20 07:51 Acetaminophen (Tylenol) 650 mg PRN Q4HRS PRN PO PAIN 11/04/20 00:45 11/24/20 18:37 Aspirin (Aspirin Chewable) 81 mg DAILYWBKFT PO 11/04/20 08:00 11/29/20 07:51 Hydroxyzine Pamoate (Vistaril) 25 mg PRN Q6HRS PRN PO agitation/anxiety 11/04/20 00:45 11/29/20 19:49 Melatonin (Melatonin) 3 mg HS PO 11/04/20 21:00 11/29/20 19:48 Nystatin (Nystop) 1 estrellita PRN BID PRN TP RASH 11/04/20 00:45 Polyethylene Glycol (miraLAX) 17 gm DAILY PO 11/04/20 09:00 11/29/20 07:55 Quetiapine Fumarate (SEROquel) 25 mg BID PO 11/04/20 09:00 11/15/20 21:52 DC 11/15/20 19:38 Quetiapine Fumarate (SEROquel) 100 mg TID PO 11/04/20 09:00 11/29/20 19:48 Trazodone HCl (Desyrel) 100 mg HS PO 11/04/20 21:00 11/29/20 19:48 Non-Formulary Medication (Ergocalciferol (Vitamin D2) (Vitamin D2)) 1,250 mcg WEEKLY PO 11/04/20 09:00 11/04/20 15:01 DC Citalopram Hydrobromide (CeleXA) 40 mg DAILY PO 11/04/20 09:00 11/05/20 18:18 DC 11/05/20 08:22 Fenofibrate (Tricor) 145 mg DAILY PO 11/04/20 09:00 11/29/20 07:51 Non-Formulary Medication (Guanfacine Hcl ) 1 tab BID PO 11/04/20 09:00 11/08/20 18:18 DC Non-Formulary Medication (Insulin Aspart (Novolog)) 9 unit TIDWMEALS SQ 11/04/20 08:00 UNV Non-Formulary Medication (Insulin Glargine,Hum.rec.anlog (Lantus Solostar)) 20 unit QHS SQ 11/04/20 21:00 UNV Non-Formulary Medication (Menthol/Zinc Oxide (Calmoseptine Ointment)) 71 gm BID TP 11/04/20 09:00 11/04/20 14:56 DC Insulin Glargine (Lantus Syringe) 20 unit QHS SQ 11/04/20 21:00 11/19/20 10:32 DC 11/18/20 20:56 Insulin Human Lispro (HumaLOG) 9 units TIDWMEALS SQ 11/04/20 08:00 11/19/20 10:33 DC 11/19/20 08:00 Vitamin D (Vitamin D3) 50,000 unit WEEKLY PO 11/05/20 09:00 11/26/20 08:57 Diphenhydramine HCl (Benadryl) 50 mg PRN Q6HRS PRN PO RASH 11/05/20 11:30 11/17/20 17:46 Oxcarbazepine (Trileptal) 300 mg BID PO 11/05/20 21:00 11/07/20 16:24 DC 11/07/20 09:08 Fluvoxamine Maleate (Luvox) 50 mg QHS PO 11/05/20 21:00 11/13/20 17:24 DC 11/12/20 19:30 Levofloxacin (Levaquin) 250 mg DAILY06 PO 11/06/20 16:00 11/10/20 06:01 DC 11/10/20 05:30 Lactobacillus Rhamnosus (Culturelle) 1 cap BID PO 11/07/20 21:00 11/29/20 19:48 Olanzapine (ZyPREXA ZYDIS) 5 mg PRN Q2HR PRN PO PSYCHOSIS 11/08/20 17:00 11/28/20 11:53 Carbamazepine (TEGretol) 200 mg QHS PO 11/08/20 21:00 11/29/20 19:48 Carbamazepine (TEGretol) 100 mg DAILY PO 11/12/20 09:00 11/29/20 07:52 Fluvoxamine Maleate (Luvox) 75 mg QHS PO 11/13/20 21:00 11/16/20 17:16 DC 11/15/20 19:38 Quetiapine Fumarate (SEROquel) 50 mg DAILY PO 11/16/20 09:00 11/29/20 07:51 Quetiapine Fumarate (SEROquel) 25 mg BID@1300,1700 PO 11/16/20 13:00 11/29/20 17:28 Fluvoxamine Maleate (Luvox) 100 mg QHS PO 11/16/20 21:00 11/29/20 19:48 Insulin Glargine (Lantus Syringe) 30 unit QHS SQ 11/19/20 21:00 11/28/20 20:41 Insulin Human Lispro (HumaLOG) 12 units TIDWMEALS SQ 11/19/20 12:00 11/29/20 18:01 Trazodone HCl (Desyrel) 25 mg 1700 PO 11/24/20 17:00 11/23/20 17:15 DC Trazodone HCl (Desyrel) 25 mg 1700 PO 11/23/20 17:15 11/29/20 17:28 Trazodone HCl (Desyrel) 50 mg PRN QHS PRN PO INSOMNIA, MAY REPEAT X1 11/23/20 21:15 11/26/20 01:47 I have reviewed the current psychotropics carefully including drug interactions. Risk benefit ratio favors no change other than as noted in my dictated progress note. Diagnosis: Problems: (1) Obsessive compulsive disorder (2) Impulse control disorder (3) Anxiety disorder, unspecified (4) Bipolar affective, mixed, sev w/ psych IDA LAINEZ MD Nov 29, 2020 21:01
[2020-11-29] MEDS: INSULIN GLARGINE SYRINGE. SQ SCH (21:24)
--- NOTE | 2020-11-29 23:14 | NUR ---
Pt yelling intermittently throughout the evening. Compliant with whole medications. Pt currently sleeping in bed.
[2020-11-30 05:22] VITALS: BP 132/72
[2020-11-30] MEDS: LEVOTHYROXINE 25 MCG TABLET. PO SCH (05:35)
[2020-11-30] MEDS: PANTOPRAZOLE 40 MG TABLET. PO SCH (07:30)
[2020-11-30] MEDS: ASPIRIN CHEWABLE 81 MG TABLET. PO SCH (08:00)
[2020-11-30] MEDS: INSULIN LISPRO 300 UNITS/3 ML VIAL. SQ SCH ×3 (08:00→17:37)
[2020-11-30] MEDS: POLYETHYLENE GLYCOL 3350 17 GM PACKET. PO SCH (09:00)
[2020-11-30] MEDS: LACTOBACILLUS RHAMNOSUS GG 1 CAPSULE. PO SCH ×2 (09:00→19:47)
[2020-11-30] MEDS: carBAMazepine 100 MG TAB.CHEW PO SCH (09:00)
[2020-11-30] MEDS: FENOFIBRATE NANOCRYSTALLIZED 145 MG TABLET PO SCH (09:00)
[2020-11-30] MEDS: QUEtiapine 50 MG TABLET. PO SCH (09:00)
[2020-11-30] MEDS: QUEtiapine 100 MG TABLET. PO SCH ×3 (09:00→19:47)
[2020-11-30] MEDS: QUEtiapine 25 MG TABLET. PO SCH ×2 (13:00→17:00)
[2020-11-30 16:16] VITALS: BP 115/72
[2020-11-30] MEDS: traZODone 50 MG TABLET. PO SCH (17:36)
[2020-11-30] MEDS: carBAMazepine 200 MG TABLET PO SCH (19:47)
[2020-11-30] MEDS: MELATONIN 3 MG TABLET PO SCH (19:47)
[2020-11-30] MEDS: traZODone 100 MG TABLET. PO SCH (19:47)
--- NOTE | 2020-11-30 21:04 | NUR ---
Patient was asking to call [facility] at the beginning of the shift. She was very persistent despite being told that she could make the call at 1930. She was somewhat able to be verbally directed, she would go to her room to sit down but then come back right away and ask again. After nurse assisted patient to make the call, she was calmer. She yelled "hello" several times and was redirected. Patient sat in [place] with peers, was med compliant and then went to bed.
--- NOTE | 2020-11-30 21:10 | PDOC ---
Exam Note: Marcelo Note: This note is a late entry for 11/29/2020 covers elements not covered in my initial note. Subjective: The patient was seen face to face in the evening of 11/29/2020 with Irina HOLLINGSWORTH, discussed and reviewed the chart. The patient slept 8-3/4 hours previous night. She did well in the morning but by the afternoon she was extremely anxious, restless, yelling at times. Received Zyprexa x1. Ricky, the patients sister had expressed concerns that Zyprexa has paradoxical effect on her but in fact nursing staff have clearly noted a positive effect ameliorating her anxiety and paranoia. She also received 50 mg Benadryl with relief. Review of Systems: Ambulation impaired with walker. No CV, , pulmonary, eye, ENT system symptoms on review. Mental Status Exam: The patient is oriented to herself and situation. She is pleasant, verbal, interactive, somewhat repetitive but less so than before. Speech is coherent, rapid at times. Abstraction is fair. Computation is impaired. Language function intact. Attention span is short. Mood and affect anxious, paranoid. No suicidal or homicidal ideation. Laboratory Data: Reviewed. Impression: Bipolar 1 disorder mixed with psychotic features. OCD. Anxiety disorder unspecified. Impulse control disorder unspecified. Plan: Continue current psychotropics unchanged. Assessment: Vital Signs/I&O: Vital Signs Date Time Temp Pulse Resp B/P (MAP) Pulse Ox O2 Delivery O2 Flow Rate FiO2 11/30/20 16:16 98.4 78 20 115/72 (86) 94 11/29/20 06:20 Room Air I & O 11/29/20 11/29/20 11/30/20 15:00 23:00 07:00 Intake Total 440 ml 480 ml Balance 440 ml 480 ml Labs: Laboratory Tests Test 11/30/20 07:42 11/30/20 08:15 11/30/20 11:32 11/30/20 17:00 Glucose (Fingerstick) 105 mg/dL (70-99) H 135 mg/dL (70-99) H 162 mg/dL (70-99) H 131 mg/dL (70-99) H Test 11/30/20 19:19 Glucose (Fingerstick) 220 mg/dL (70-99) H Current Medications: Meds: Laboratory Tests Test 11/30/20 07:42 2/16/21 08:15 11/30/20 11:32 11/30/20 17:00 Glucose (Fingerstick) 105 mg/dL 135 mg/dL 162 mg/dL 131 mg/dL Test 11/30/20 19:19 Glucose (Fingerstick) 220 mg/dL Current Medications Medications (Trade) Dose Ordered Sig/Carmina Route PRN Reason Start Time Stop Time Status Last Admin Dose Admin Acetaminophen (Tylenol) 650 mg PRN Q6HRS PRN PO MILD PAIN / TEMP > 100.3'F 11/03/20 23:15 Cancel Multi-Ingredient Ointment (Analgesic [place]) 1 estrellita PRN QID PRN TP MUSCLE PAIN 11/03/20 23:15 Al Hydroxide/Mg Hydroxide (Mylanta Plus Xs) 15 ml PRN AFTMEALHC PRN PO DYSPEPSIA 11/03/20 23:15 11/23/20 16:07 Magnesium Hydroxide (Milk Of Magnesia) 2,400 mg PRN QHS PRN PO CONSTIPATION 11/03/20 23:15 Levothyroxine Sodium (Synthroid) 25 mcg DAILY06 PO 11/04/20 06:00 11/30/20 05:35 Pantoprazole Sodium (Protonix) 40 mg DAILYAC PO 11/04/20 07:30 11/30/20 07:30 Acetaminophen (Tylenol) 650 mg PRN Q4HRS PRN PO PAIN 11/04/20 00:45 11/24/20 18:37 Aspirin (Aspirin Chewable) 81 mg DAILYWBKFT PO 11/04/20 08:00 11/30/20 08:00 Hydroxyzine Pamoate (Vistaril) 25 mg PRN Q6HRS PRN PO agitation/anxiety 11/04/20 00:45 11/29/20 19:49 Melatonin (Melatonin) 3 mg HS PO 11/04/20 21:00 11/30/20 19:47 Nystatin (Nystop) 1 estrellita PRN BID PRN TP RASH 11/04/20 00:45 Polyethylene Glycol (miraLAX) 17 gm DAILY PO 11/04/20 09:00 11/30/20 09:00 Quetiapine Fumarate (SEROquel) 25 mg BID PO 11/04/20 09:00 11/15/20 21:52 DC 11/15/20 19:38 Quetiapine Fumarate (SEROquel) 100 mg TID PO 11/04/20 09:00 11/30/20 19:47 Trazodone HCl (Desyrel) 100 mg HS PO 11/04/20 21:00 11/30/20 19:47 Non-Formulary Medication (Ergocalciferol (Vitamin D2) (Vitamin D2)) 1,250 mcg WEEKLY PO 11/04/20 09:00 11/04/20 15:01 DC Citalopram Hydrobromide (CeleXA) 40 mg DAILY PO 11/04/20 09:00 11/05/20 18:18 DC 11/05/20 08:22 Fenofibrate (Tricor) 145 mg DAILY PO 11/04/20 09:00 11/30/20 09:00 Non-Formulary Medication (Guanfacine Hcl ) 1 tab BID PO 11/04/20 09:00 11/08/20 18:18 DC Non-Formulary Medication (Insulin Aspart (Novolog)) 9 unit TIDWMEALS SQ 11/04/20 08:00 UNV Non-Formulary Medication (Insulin Glargine,Hum.rec.anlog (Lantus Solostar)) 20 unit QHS SQ 11/04/20 21:00 UNV Non-Formulary Medication (Menthol/Zinc Oxide (Calmoseptine Ointment)) 71 gm BID TP 11/04/20 09:00 11/04/20 14:56 DC Insulin Glargine (Lantus Syringe) 20 unit QHS SQ 11/04/20 21:00 11/19/20 10:32 DC 11/18/20 20:56 Insulin Human Lispro (HumaLOG) 9 units TIDWMEALS SQ 11/04/20 08:00 11/19/20 10:33 DC 11/19/20 08:00 Vitamin D (Vitamin D3) 50,000 unit WEEKLY PO 11/05/20 09:00 11/26/20 08:57 Diphenhydramine HCl (Benadryl) 50 mg PRN Q6HRS PRN PO RASH 11/05/20 11:30 11/17/20 17:46 Oxcarbazepine (Trileptal) 300 mg BID PO 11/05/20 21:00 11/07/20 16:24 DC 11/07/20 09:08 Fluvoxamine Maleate (Luvox) 50 mg QHS PO 11/05/20 21:00 11/13/20 17:24 DC 11/12/20 19:30 Levofloxacin (Levaquin) 250 mg DAILY06 PO 11/06/20 16:00 11/10/20 06:01 DC 11/10/20 05:30 Lactobacillus Rhamnosus (Culturelle) 1 cap BID PO 11/07/20 21:00 11/30/20 19:47 Olanzapine (ZyPREXA ZYDIS) 5 mg PRN Q2HR PRN PO PSYCHOSIS 11/08/20 17:00 11/28/20 11:53 Carbamazepine (TEGretol) 200 mg QHS PO 11/08/20 21:00 11/30/20 19:47 Carbamazepine (TEGretol) 100 mg DAILY PO 11/12/20 09:00 11/30/20 09:00 Fluvoxamine Maleate (Luvox) 75 mg QHS PO 11/13/20 21:00 11/16/20 17:16 DC 11/15/20 19:38 Quetiapine Fumarate (SEROquel) 50 mg DAILY PO 11/16/20 09:00 11/30/20 09:00 Quetiapine Fumarate (SEROquel) 25 mg BID@1300,1700 PO 11/16/20 13:00 11/30/20 13:00 Fluvoxamine Maleate (Luvox) 100 mg QHS PO 11/16/20 21:00 11/30/20 19:47 Insulin Glargine (Lantus Syringe) 30 unit QHS SQ 11/19/20 21:00 11/29/20 21:24 Insulin Human Lispro (HumaLOG) 12 units TIDWMEALS SQ 11/19/20 12:00 11/30/20 17:37 Trazodone HCl (Desyrel) 25 mg 1700 PO 11/24/20 17:00 11/23/20 17:15 DC Trazodone HCl (Desyrel) 25 mg 1700 PO 11/23/20 17:15 11/30/20 17:36 Trazodone HCl (Desyrel) 50 mg PRN QHS PRN PO INSOMNIA, MAY REPEAT X1 11/23/20 21:15 11/26/20 01:47 I have reviewed the current psychotropics carefully including drug interactions. Risk benefit ratio favors no change other than as noted in my dictated progress note. Diagnosis: Problems: (1) Impulse control disorder (2) Obsessive compulsive disorder (3) Bipolar affective, mixed, sev w/ psych (4) Anxiety disorder, unspecified IDA LAINEZ MD Nov 30, 2020 21:10
--- NOTE | 2020-11-30 21:10 | PDOC ---
Exam Note: Marcelo Note: Please also refer to the separate dictated note~for this date of service dictated separately.~Patient seen individually. Discussed the patient with Nursing staff reviewed the chart.~Reviewed interim history and current functioning. Reviewed vital signs,~Labs/ Radiology~and current medications noted below. Continue current treatment with the changes noted in the dictated addendum note Assessment: Vital Signs/I&O: Vital Signs Date Time Temp Pulse Resp B/P (MAP) Pulse Ox O2 Delivery O2 Flow Rate FiO2 11/30/20 16:16 98.4 78 20 115/72 (86) 94 11/29/20 06:20 Room Air I & O 11/29/20 11/29/20 11/30/20 15:00 23:00 07:00 Intake Total 440 ml 480 ml Balance 440 ml 480 ml Labs: Laboratory Tests Test 11/30/20 07:42 11/30/20 08:15 11/30/20 11:32 11/30/20 17:00 Glucose (Fingerstick) 105 mg/dL (70-99) H 135 mg/dL (70-99) H 162 mg/dL (70-99) H 131 mg/dL (70-99) H Test 11/30/20 19:19 Glucose (Fingerstick) 220 mg/dL (70-99) H Current Medications: Meds: Laboratory Tests Test 11/30/20 07:42 11/30/20 08:15 11/30/20 11:32 11/30/20 17:00 Glucose (Fingerstick) 105 mg/dL 135 mg/dL 162 mg/dL 131 mg/dL Test 11/30/20 19:19 Glucose (Fingerstick) 220 mg/dL Current Medications Medications (Trade) Dose Ordered Sig/Carmina Route PRN Reason Start Time Stop Time Status Last Admin Dose Admin Acetaminophen (Tylenol) 650 mg PRN Q6HRS PRN PO MILD PAIN / TEMP > 100.3'F 11/03/20 23:15 Cancel Multi-Ingredient Ointment (Analgesic [place]) 1 estrellita PRN QID PRN TP MUSCLE PAIN 11/03/20 23:15 Al Hydroxide/Mg Hydroxide (Mylanta Plus Xs) 15 ml PRN AFTMEALHC PRN PO DYSPEPSIA 11/03/20 23:15 11/23/20 16:07 Magnesium Hydroxide (Milk Of Magnesia) 2,400 mg PRN QHS PRN PO CONSTIPATION 11/03/20 23:15 Levothyroxine Sodium (Synthroid) 25 mcg DAILY06 PO 11/04/20 06:00 11/30/20 05:35 Pantoprazole Sodium (Protonix) 40 mg DAILYAC PO 11/04/20 07:30 11/30/20 07:30 Acetaminophen (Tylenol) 650 mg PRN Q4HRS PRN PO PAIN 11/04/20 00:45 11/24/20 18:37 Aspirin (Aspirin Chewable) 81 mg DAILYWBKFT PO 11/04/20 08:00 11/30/20 08:00 Hydroxyzine Pamoate (Vistaril) 25 mg PRN Q6HRS PRN PO agitation/anxiety 11/04/20 00:45 11/29/20 19:49 Melatonin (Melatonin) 3 mg HS PO 11/04/20 21:00 11/30/20 19:47 Nystatin (Nystop) 1 estrellita PRN BID PRN TP RASH 11/04/20 00:45 Polyethylene Glycol (miraLAX) 17 gm DAILY PO 11/04/20 09:00 11/30/20 09:00 Quetiapine Fumarate (SEROquel) 25 mg BID PO 11/04/20 09:00 11/15/20 21:52 DC 11/15/20 19:38 Quetiapine Fumarate (SEROquel) 100 mg TID PO 11/04/20 09:00 11/30/20 19:47 Trazodone HCl (Desyrel) 100 mg HS PO 11/04/20 21:00 11/30/20 19:47 Non-Formulary Medication (Ergocalciferol (Vitamin D2) (Vitamin D2)) 1,250 mcg WEEKLY PO 11/04/20 09:00 11/04/20 15:01 DC Citalopram Hydrobromide (CeleXA) 40 mg DAILY PO 11/04/20 09:00 11/05/20 18:18 DC 11/05/20 08:22 Fenofibrate (Tricor) 145 mg DAILY PO 11/04/20 09:00 11/30/20 09:00 Non-Formulary Medication (Guanfacine Hcl ) 1 tab BID PO 11/04/20 09:00 11/08/20 18:18 DC Non-Formulary Medication (Insulin Aspart (Novolog)) 9 unit TIDWMEALS SQ 11/04/20 08:00 UNV Non-Formulary Medication (Insulin Glargine,Hum.rec.anlog (Lantus Solostar)) 20 unit QHS SQ 11/04/20 21:00 UNV Non-Formulary Medication (Menthol/Zinc Oxide (Calmoseptine Ointment)) 71 gm BID TP 11/04/20 09:00 11/04/20 14:56 DC Insulin Glargine (Lantus Syringe) 20 unit QHS SQ 11/04/20 21:00 11/19/20 10:32 DC 11/18/20 20:56 Insulin Human Lispro (HumaLOG) 9 units TIDWMEALS SQ 11/04/20 08:00 11/19/20 10:33 DC 11/19/20 08:00 Vitamin D (Vitamin D3) 50,000 unit WEEKLY PO 11/05/20 09:00 11/26/20 08:57 Diphenhydramine HCl (Benadryl) 50 mg PRN Q6HRS PRN PO RASH 11/05/20 11:30 11/17/20 17:46 Oxcarbazepine (Trileptal) 300 mg BID PO 11/05/20 21:00 11/07/20 16:24 DC 11/07/20 09:08 Fluvoxamine Maleate (Luvox) 50 mg QHS PO 11/05/20 21:00 11/13/20 17:24 DC 11/12/20 19:30 Levofloxacin (Levaquin) 250 mg DAILY06 PO 11/06/20 16:00 11/10/20 06:01 DC 11/10/20 05:30 Lactobacillus Rhamnosus (Culturelle) 1 cap BID PO 11/07/20 21:00 11/30/20 19:47 Olanzapine (ZyPREXA ZYDIS) 5 mg PRN Q2HR PRN PO PSYCHOSIS 11/08/20 17:00 11/28/20 11:53 Carbamazepine (TEGretol) 200 mg QHS PO 11/08/20 21:00 11/30/20 19:47 Carbamazepine (TEGretol) 100 mg DAILY PO 11/12/20 09:00 11/30/20 09:00 Fluvoxamine Maleate (Luvox) 75 mg QHS PO 11/13/20 21:00 11/16/20 17:16 DC 11/15/20 19:38 Quetiapine Fumarate (SEROquel) 50 mg DAILY PO 11/16/20 09:00 11/30/20 09:00 Quetiapine Fumarate (SEROquel) 25 mg BID@1300,1700 PO 11/16/20 13:00 11/30/20 13:00 Fluvoxamine Maleate (Luvox) 100 mg QHS PO 11/16/20 21:00 11/30/20 19:47 Insulin Glargine (Lantus Syringe) 30 unit QHS SQ 11/19/20 21:00 11/29/20 21:24 Insulin Human Lispro (HumaLOG) 12 units TIDWMEALS SQ 11/19/20 12:00 11/30/20 17:37 Trazodone HCl (Desyrel) 25 mg 1700 PO 11/24/20 17:00 11/23/20 17:15 DC Trazodone HCl (Desyrel) 25 mg 1700 PO 11/23/20 17:15 11/30/20 17:36 Trazodone HCl (Desyrel) 50 mg PRN QHS PRN PO INSOMNIA, MAY REPEAT X1 11/23/20 21:15 11/26/20 01:47 I have reviewed the current psychotropics carefully including drug interactions. Risk benefit ratio favors no change other than as noted in my dictated progress note. Diagnosis: Problems: (1) Bipolar affective, mixed, sev w/ psych (2) Anxiety disorder, unspecified (3) Impulse control disorder (4) Obsessive compulsive disorder IDA LAINEZ MD Nov 30, 2020 21:10
[2020-11-30] MEDS: INSULIN GLARGINE SYRINGE. SQ SCH (21:12)
[2020-12-01] MEDS: LEVOTHYROXINE 25 MCG TABLET. PO SCH (05:38)
[2020-12-01 05:47] VITALS: BP 158/85
--- NOTE | 2020-12-01 07:35 | PDOC ---
Exam Note: Marcelo Note: This note is a late entry for 11/30/2020 covers elements not covered in my initial note. Subjective: The patient was seen face to face in the evening of 11/30/2020 with John HOLLINGSWORTH, discussed and reviewed the chart. The patient slept 7-1/4 hours previous night. Yesterday the patient was agitated. Previous night she was yelling for the telephone to call Ricky, her sister. She did well this morning, agitated after lunch. She had to be moved in another room because she was getting into fights with other patients. Review of Systems: Ambulation impaired with walker. No CV, , pulmonary, eye, ENT system symptoms on review. She followed me around the unit even after I met with her extensively individually. Mental Status Exam: The patient is oriented to herself and situation. Speech is coherent, at times pressured, repetitive. Abstraction is fair. Computation is impaired. Language function intact. Mood and affect remains somewhat an xious, labile, obsessive. Laboratory Data: Reviewed. Impression: Bipolar 1 disorder mixed with psychotic features. OCD. Anxiety disorder unspecified. Impulse control disorder unspecified. Plan: Change the Seroquel scheduled to 150 mg 9 a.m. and 2 p.m. and 100 mg h.s. Continue rest of the psychotropics unchanged. Assessment: Vital Signs/I&O: Vital Signs Date Time Temp Pulse Resp B/P (MAP) Pulse Ox O2 Delivery O2 Flow Rate FiO2 12/01/20 05:47 97.7 71 18 158/85 (109) 97 11/29/20 06:20 Room Air I & O 11/30/20 11/30/20 12/01/20 15:00 23:00 07:00 Intake Total 960 ml 600 ml Balance 960 ml 600 ml Labs: Laboratory Tests Test 11/30/20 07:42 11/30/20 08:15 11/30/20 11:32 11/30/20 17:00 Glucose (Fingerstick) 105 mg/dL (70-99) H 135 mg/dL (70-99) H 162 mg/dL (70-99) H 131 mg/dL (70-99) H Test 11/30/20 19:19 12/01/20 07:15 Glucose (Fingerstick) 220 mg/dL (70-99) H 102 mg/dL (70-99) H Current Medications: Meds: Laboratory Tests Test 11/30/20 07:42 11/30/20 08:15 11/30/20 11:32 11/30/20 17:00 Glucose (Fingerstick) 105 mg/dL 135 mg/dL 162 mg/dL 131 mg/dL Test 11/30/20 19:19 12/01/20 07:15 Glucose (Fingerstick) 220 mg/dL 102 mg/dL Current Medications Medications (Trade) Dose Ordered Sig/Carmina Route PRN Reason Start Time Stop Time Status Last Admin Dose Admin Acetaminophen (Tylenol) 650 mg PRN Q6HRS PRN PO MILD PAIN / TEMP > 100.3'F 11/03/20 23:15 Cancel Multi-Ingredient Ointment (Analgesic [place]) 1 estrellita PRN QID PRN TP MUSCLE PAIN 11/03/20 23:15 Al Hydroxide/Mg Hydroxide (Mylanta Plus Xs) 15 ml PRN AFTMEALHC PRN PO DYSPEPSIA 11/03/20 23:15 11/23/20 16:07 Magnesium Hydroxide (Milk Of Magnesia) 2,400 mg PRN QHS PRN PO CONSTIPATION 11/03/20 23:15 Levothyroxine Sodium (Synthroid) 25 mcg DAILY06 PO 11/04/20 06:00 12/01/20 05:38 Pantoprazole Sodium (Protonix) 40 mg DAILYAC PO 11/04/20 07:30 11/30/20 07:30 Acetaminophen (Tylenol) 650 mg PRN Q4HRS PRN PO PAIN 11/04/20 00:45 11/24/20 18:37 Aspirin (Aspirin Chewable) 81 mg DAILYWBKFT PO 11/04/20 08:00 11/30/20 08:00 Hydroxyzine Pamoate (Vistaril) 25 mg PRN Q6HRS PRN PO agitation/anxiety 11/04/20 00:45 11/29/20 19:49 Melatonin (Melatonin) 3 mg HS PO 11/04/20 21:00 11/30/20 19:47 Nystatin (Nystop) 1 estrellita PRN BID PRN TP RASH 11/04/20 00:45 Polyethylene Glycol (miraLAX) 17 gm DAILY PO 11/04/20 09:00 11/30/20 09:00 Quetiapine Fumarate (SEROquel) 25 mg BID PO 11/04/20 09:00 11/15/20 21:52 DC 11/15/20 19:38 Quetiapine Fumarate (SEROquel) 100 mg TID PO 11/04/20 09:00 12/01/20 07:15 DC 11/30/20 19:47 Trazodone HCl (Desyrel) 100 mg HS PO 11/04/20 21:00 11/30/20 19:47 Non-Formulary Medication (Ergocalciferol (Vitamin D2) (Vitamin D2)) 1,250 mcg WEEKLY PO 11/04/20 09:00 11/04/20 15:01 DC Citalopram Hydrobromide (CeleXA) 40 mg DAILY PO 11/04/20 09:00 11/05/20 18:18 DC 11/05/20 08:22 Fenofibrate (Tricor) 145 mg DAILY PO 11/04/20 09:00 11/30/20 09:00 Non-Formulary Medication (Guanfacine Hcl ) 1 tab BID PO 11/04/20 09:00 11/08/20 18:18 DC Non-Formulary Medication (Insulin Aspart (Novolog)) 9 unit TIDWMEALS SQ 11/04/20 08:00 UNV Non-Formulary Medication (Insulin Glargine,Hum.rec.anlog (Lantus Solostar)) 20 unit QHS SQ 11/04/20 21:00 UNV Non-Formulary Medication (Menthol/Zinc Oxide (Calmoseptine Ointment)) 71 gm BID TP 11/04/20 09:00 11/04/20 14:56 DC Insulin Glargine (Lantus Syringe) 20 unit QHS SQ 11/04/20 21:00 11/19/20 10:32 DC 11/18/20 20:56 Insulin Human Lispro (HumaLOG) 9 units TIDWMEALS SQ 11/04/20 08:00 11/19/20 10:33 DC 11/19/20 08:00 Vitamin D (Vitamin D3) 50,000 unit WEEKLY PO 11/05/20 09:00 11/26/20 08:57 Diphenhydramine HCl (Benadryl) 50 mg PRN Q6HRS PRN PO RASH 11/05/20 11:30 11/17/20 17:46 Oxcarbazepine (Trileptal) 300 mg BID PO 11/05/20 21:00 11/07/20 16:24 DC 11/07/20 09:08 Fluvoxamine Maleate (Luvox) 50 mg QHS PO 11/05/20 21:00 11/13/20 17:24 DC 11/12/20 19:30 Levofloxacin (Levaquin) 250 mg DAILY06 PO 11/06/20 16:00 11/10/20 06:01 DC 11/10/20 05:30 Lactobacillus Rhamnosus (Culturelle) 1 cap BID PO 11/07/20 21:00 11/30/20 19:47 Olanzapine (ZyPREXA ZYDIS) 5 mg PRN Q2HR PRN PO PSYCHOSIS 11/08/20 17:00 11/28/20 11:53 Carbamazepine (TEGretol) 200 mg QHS PO 11/08/20 21:00 11/30/20 19:47 Carbamazepine (TEGretol) 100 mg DAILY PO 11/12/20 09:00 11/30/20 09:00 Fluvoxamine Maleate (Luvox) 75 mg QHS PO 11/13/20 21:00 11/16/20 17:16 DC 11/15/20 19:38 Quetiapine Fumarate (SEROquel) 50 mg DAILY PO 11/16/20 09:00 12/01/20 07:16 DC 11/30/20 09:00 Quetiapine Fumarate (SEROquel) 25 mg BID@1300,1700 PO 11/16/20 13:00 12/01/20 07:16 DC 11/30/20 13:00 Fluvoxamine Maleate (Luvox) 100 mg QHS PO 11/16/20 21:00 11/30/20 19:47 Insulin Glargine (Lantus Syringe) 30 unit QHS SQ 11/19/20 21:00 11/30/20 21:12 Insulin Human Lispro (HumaLOG) 12 units TIDWMEALS SQ 11/19/20 12:00 11/30/20 17:37 Trazodone HCl (Desyrel) 25 mg 1700 PO 11/24/20 17:00 11/23/20 17:15 DC Trazodone HCl (Desyrel) 25 mg 1700 PO 11/23/20 17:15 11/30/20 17:36 Trazodone HCl (Desyrel) 50 mg PRN QHS PRN PO INSOMNIA, MAY REPEAT X1 11/23/20 21:15 11/26/20 01:47 Quetiapine Fumarate (SEROquel) 100 mg 0900,1400 PO 12/01/20 09:00 Quetiapine Fumarate (SEROquel) 100 mg QHS PO 12/01/20 21:00 Quetiapine Fumarate (SEROquel) 50 mg 0900,1400 PO 12/01/20 09:00 I have reviewed the current psychotropics carefully including drug interactions. Risk benefit ratio favors no change other than as noted in my dictated progress note. Diagnosis: Problems: (1) Impulse control disorder (2) Bipolar affective, mixed, sev w/ psych (3) Anxiety disorder, unspecified (4) Obsessive compulsive disorder IDA LAINEZ MD Dec 01, 2020 07:35
[2020-12-01] MEDS: POLYETHYLENE GLYCOL 3350 17 GM PACKET. PO SCH (08:13)
[2020-12-01] MEDS: PANTOPRAZOLE 40 MG TABLET. PO SCH (08:13)
[2020-12-01] MEDS: FENOFIBRATE NANOCRYSTALLIZED 145 MG TABLET PO SCH (08:13)
[2020-12-01] MEDS: LACTOBACILLUS RHAMNOSUS GG 1 CAPSULE. PO SCH ×2 (08:13→19:53)
[2020-12-01] MEDS: carBAMazepine 100 MG TAB.CHEW PO SCH (08:13)
[2020-12-01] MEDS: QUEtiapine 50 MG TABLET. PO SCH ×2 (08:14→14:27)
[2020-12-01] MEDS: QUEtiapine 100 MG TABLET. PO SCH ×3 (08:14→19:57)
[2020-12-01] MEDS: ASPIRIN CHEWABLE 81 MG TABLET. PO SCH (08:14)
[2020-12-01] MEDS: INSULIN LISPRO 300 UNITS/3 ML VIAL. SQ SCH ×3 (08:16→17:00)
--- NOTE | 2020-12-01 09:24 | NUR ---
ANJU attempted to contact Chioma re: discharge time and her request to have discharge scheduled for tomorrow. Chioma was not in yet and the desk interviewer took ANJU information to pass along for Chioma to call ANJU when possible.
--- NOTE | 2020-12-01 10:45 | NUR ---
ANJU received call from Chioma re: discharge for pt. ANJU agreed that pt would be able to discharge on and -Dec will be able to set up transportation. Chioma discussed with ANJU how pt was doing and both parties discussed Ricky's request of pt getting her 2nd Covid shot as soon as possible. 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
--- NOTE | 2020-12-01 11:00 | NUR ---
Patient is increasingly agitated and repeatedly calling out. She has repeatedly called out asking to use the phone, when she was instructed to wait becuase staff is very busy with other patients, she continued to call out, stating 'You're not the boss of me' and continued to call out, agitating other patients in the day room. Patient escorted to her room and prn medication provided per eMAR. Will continue to monitor.
[2020-12-01 16:45] VITALS: BP 109/71
[2020-12-01] MEDS: traZODone 50 MG TABLET. PO SCH (17:09)
[2020-12-01] MEDS: traZODone 100 MG TABLET. PO SCH (19:53)
[2020-12-01] MEDS: carBAMazepine 200 MG TABLET PO SCH (19:53)
[2020-12-01] MEDS: MELATONIN 3 MG TABLET PO SCH (19:56)
--- NOTE | 2020-12-01 21:03 | PDOC ---
Exam Note: Marcelo Note: Please also refer to the separate dictated note~for this date of service dictated separately.~Patient seen individually. Discussed the patient with Nursing staff reviewed the chart.~Reviewed interim history and current functioning. Reviewed vital signs,~Labs/ Radiology~and current medications noted below. Continue current treatment with the changes noted in the dictated addendum note Assessment: Vital Signs/I&O: Vital Signs Date Time Temp Pulse Resp B/P (MAP) Pulse Ox O2 Delivery O2 Flow Rate FiO2 12/01/20 16:45 96.3 92 18 109/71 (84) 94 11/29/20 06:20 Room Air I & O 11/30/20 11/30/20 12/01/20 15:00 23:00 07:00 Intake Total 960 ml 600 ml Balance 960 ml 600 ml Labs: Laboratory Tests Test 12/01/20 07:15 12/01/20 11:40 12/01/20 16:57 12/01/20 19:13 Glucose (Fingerstick) 102 mg/dL (70-99) H 152 mg/dL (70-99) H 60 mg/dL (70-99) L 213 mg/dL (70-99) H Current Medications: Meds: Laboratory Tests Test 12/01/20 07:15 12/01/20 11:40 12/01/20 16:57 12/01/20 19:13 Glucose (Fingerstick) 102 mg/dL 152 mg/dL 60 mg/dL 213 mg/dL Current Medications Medications (Trade) Dose Ordered Sig/Carmina Route PRN Reason Start Time Stop Time Status Last Admin Dose Admin Acetaminophen (Tylenol) 650 mg PRN Q6HRS PRN PO MILD PAIN / TEMP > 100.3'F 11/03/20 23:15 Cancel Multi-Ingredient Ointment (Analgesic [place]) 1 estrellita PRN QID PRN TP MUSCLE PAIN 11/03/20 23:15 Al Hydroxide/Mg Hydroxide (Mylanta Plus Xs) 15 ml PRN AFTMEALHC PRN PO DYSPEPSIA 11/03/20 23:15 11/23/20 16:07 Magnesium Hydroxide (Milk Of Magnesia) 2,400 mg PRN QHS PRN PO CONSTIPATION 11/03/20 23:15 Levothyroxine Sodium (Synthroid) 25 mcg DAILY06 PO 11/04/20 06:00 12/01/20 05:38 Pantoprazole Sodium (Protonix) 40 mg DAILYAC PO 11/04/20 07:30 12/01/20 08:13 Acetaminophen (Tylenol) 650 mg PRN Q4HRS PRN PO PAIN 11/04/20 00:45 11/24/20 18:37 Aspirin (Aspirin Chewable) 81 mg DAILYWBKFT PO 11/04/20 08:00 12/01/20 08:14 Hydroxyzine Pamoate (Vistaril) 25 mg PRN Q6HRS PRN PO agitation/anxiety 11/04/20 00:45 11/29/20 19:49 Melatonin (Melatonin) 3 mg HS PO 11/04/20 21:00 12/01/20 19:56 Nystatin (Nystop) 1 estrellita PRN BID PRN TP RASH 11/04/20 00:45 Polyethylene Glycol (miraLAX) 17 gm DAILY PO 11/04/20 09:00 12/01/20 08:13 Quetiapine Fumarate (SEROquel) 25 mg BID PO 11/04/20 09:00 11/15/20 21:52 DC 11/15/20 19:38 Quetiapine Fumarate (SEROquel) 100 mg TID PO 11/04/20 09:00 12/01/20 07:15 DC 11/30/20 19:47 Trazodone HCl (Desyrel) 100 mg HS PO 11/04/20 21:00 12/01/20 19:53 Non-Formulary Medication (Ergocalciferol (Vitamin D2) (Vitamin D2)) 1,250 mcg WEEKLY PO 11/04/20 09:00 11/04/20 15:01 DC Citalopram Hydrobromide (CeleXA) 40 mg DAILY PO 11/04/20 09:00 11/05/20 18:18 DC 11/05/20 08:22 Fenofibrate (Tricor) 145 mg DAILY PO 11/04/20 09:00 12/01/20 08:13 Non-Formulary Medication (Guanfacine Hcl ) 1 tab BID PO 11/04/20 09:00 11/08/20 18:18 DC Non-Formulary Medication (Insulin Aspart (Novolog)) 9 unit TIDWMEALS SQ 11/04/20 08:00 UNV Non-Formulary Medication (Insulin Glargine,Hum.rec.anlog (Lantus Solostar)) 20 unit QHS SQ 11/04/20 21:00 UNV Non-Formulary Medication (Menthol/Zinc Oxide (Calmoseptine Ointment)) 71 gm BID TP 11/04/20 09:00 11/04/20 14:56 DC Insulin Glargine (Lantus Syringe) 20 unit QHS SQ 11/04/20 21:00 11/19/20 10:32 DC 11/18/20 20:56 Insulin Human Lispro (HumaLOG) 9 units TIDWMEALS SQ 11/04/20 08:00 11/19/20 10:33 DC 11/19/20 08:00 Vitamin D (Vitamin D3) 50,000 unit WEEKLY PO 11/05/20 09:00 11/26/20 08:57 Diphenhydramine HCl (Benadryl) 50 mg PRN Q6HRS PRN PO RASH 11/05/20 11:30 11/17/20 17:46 Oxcarbazepine (Trileptal) 300 mg BID PO 11/05/20 21:00 11/07/20 16:24 DC 11/07/20 09:08 Fluvoxamine Maleate (Luvox) 50 mg QHS PO 11/05/20 21:00 11/13/20 17:24 DC 11/12/20 19:30 Levofloxacin (Levaquin) 250 mg DAILY06 PO 11/06/20 16:00 11/10/20 06:01 DC 11/10/20 05:30 Lactobacillus Rhamnosus (Culturelle) 1 cap BID PO 11/07/20 21:00 12/01/20 19:53 Olanzapine (ZyPREXA ZYDIS) 5 mg PRN Q2HR PRN PO PSYCHOSIS 11/08/20 17:00 12/01/20 11:06 Carbamazepine (TEGretol) 200 mg QHS PO 11/08/20 21:00 12/01/20 19:53 Carbamazepine (TEGretol) 100 mg DAILY PO 11/12/20 09:00 12/01/20 08:13 Fluvoxamine Maleate (Luvox) 75 mg QHS PO 11/13/20 21:00 11/16/20 17:16 DC 11/15/20 19:38 Quetiapine Fumarate (SEROquel) 50 mg DAILY PO 11/16/20 09:00 12/01/20 07:16 DC 11/30/20 09:00 Quetiapine Fumarate (SEROquel) 25 mg BID@1300,1700 PO 11/16/20 13:00 12/01/20 07:16 DC 11/30/20 13:00 Fluvoxamine Maleate (Luvox) 100 mg QHS PO 11/16/20 21:00 12/01/20 18:25 DC 11/30/20 19:47 Insulin Glargine (Lantus Syringe) 30 unit QHS SQ 11/19/20 21:00 11/30/20 21:12 Insulin Human Lispro (HumaLOG) 12 units TIDWMEALS SQ 11/19/20 12:00 12/01/20 12:16 Trazodone HCl (Desyrel) 25 mg 1700 PO 11/24/20 17:00 11/23/20 17:15 DC Trazodone HCl (Desyrel) 25 mg 1700 PO 11/23/20 17:15 12/01/20 17:09 Trazodone HCl (Desyrel) 50 mg PRN QHS PRN PO INSOMNIA, MAY REPEAT X1 11/23/20 21:15 11/26/20 01:47 Quetiapine Fumarate (SEROquel) 100 mg 0900,1400 PO 12/01/20 09:00 12/01/20 14:27 Quetiapine Fumarate (SEROquel) 100 mg QHS PO 12/01/20 21:00 12/01/20 19:57 Quetiapine Fumarate (SEROquel) 50 mg 0900,1400 PO 12/01/20 09:00 12/01/20 14:27 Fluvoxamine Maleate (Luvox) 100 mg QHS PO 12/01/20 21:00 12/01/20 19:54 Fluvoxamine Maleate (Luvox) 25 mg HS PO 12/01/20 21:00 12/01/20 19:55 Current Medications Medications (Trade) Dose Ordered Sig/Carmina Route PRN Reason Start Time Stop Time Status Last Admin Dose Admin Quetiapine Fumarate (SEROquel) 100 mg 0900,1400 PO 12/01/20 09:00 12/01/20 14:27 Quetiapine Fumarate (SEROquel) 100 mg QHS PO 12/01/20 21:00 12/01/20 19:57 Quetiapine Fumarate (SEROquel) 50 mg 0900,1400 PO 12/01/20 09:00 12/01/20 14:27 Fluvoxamine Maleate (Luvox) 100 mg QHS PO 12/01/20 21:00 12/01/20 19:54 Fluvoxamine Maleate (Luvox) 25 mg HS PO 12/01/20 21:00 12/01/20 19:55 I have reviewed the current psychotropics carefully including drug interactions. Risk benefit ratio favors no change other than as noted in my dictated progress note. Diagnosis: Problems: (1) Bipolar affective, mixed, sev w/ psych (2) Anxiety disorder, unspecified (3) Impulse control disorder (4) Obsessive compulsive disorder IDA LAINEZ MD Dec 01, 2020 21:03
[2020-12-01] MEDS: INSULIN GLARGINE SYRINGE. SQ SCH (21:17)
--- NOTE | 2020-12-01 22:14 | NUR ---
Patient was calm most of the night after she called Ricky. Patient is saying that she is "going home on Sunday" and is excited about it. She yelled "Hello" a couple of times but was verbally redirectable. Patient compliant with medications given whole with water.
[2020-12-02] MEDS ORDERED: CHOL500021 PO (01:10)
[2020-12-02] MEDS ORDERED: LACT1CAP21 PO (01:11)
[2020-12-02] MEDS ORDERED: MAGN24003 PO (01:13)
[2020-12-02] MEDS ORDERED: MAG30ORA6 PO (01:14)
[2020-12-02] MEDS ORDERED: METH28OI2 TP (01:15)
[2020-12-02] MEDS ORDERED: OLAN5TAB99 PO (01:16)
[2020-12-02] MEDS ORDERED: QUET100T4 PO (01:20)
[2020-12-02] MEDS ORDERED: QUET50TA5 PO (01:23)
[2020-12-02] MEDS ORDERED: CARB200C7 PO (01:25)
[2020-12-02] MEDS ORDERED: CARB100C4 PO (01:26)
[2020-12-02] MEDS ORDERED: DIPH50CA PO (01:27)
[2020-12-02] MEDS ORDERED: FLUV50TA2 PO (01:29)
[2020-12-02] MEDS ORDERED: FLUV100T2 PO (01:31)
[2020-12-02] MEDS ORDERED: TRAZ-120 PO ×2 (01:32→01:33)
[2020-12-02] MEDS: LEVOTHYROXINE 25 MCG TABLET. PO SCH (05:49)
[2020-12-02 06:11] VITALS: BP 150/65
--- NOTE | 2020-12-02 07:58 | PDOC ---
Exam Note: Marcelo Note: This note is a late entry for 12/01/2020 covers elements not covered in my initial note. Subjective: The patient was seen face to face in the evening of 12/01/2020 with John HOLLINGSWORTH, discussed and reviewed the chart. The patient slept 7-1/2 hours previous night. She was somewhat obsessive in the morning, wanting to call her sister Ricky. She received Zyprexa in the morning, did better. She did better intermittently during the day but by the evening when I met with her she was again obsessively yelling out but did stop and I discussed this with her. She refused to go out to the dayroom, did come later in the evening as I was rounding. Review of Systems: Ambulation impaired with walker. No CV, , pulmonary, eye, ENT system symptoms on review. Mental Status Exam: The patient is oriented to herself and situation. Her yelling was less. She remains obsessive, repetitive but less so than before. Speech is coherent, repetitive. Abstraction is fair. Computation is impaired. Language function intact. Mood and affect remains anxious, obsessive. Laboratory Data: Reviewed. Impression: Bipolar 1 disorder mixed with psychotic features. OCD. Anxiety disorder unspecified. Impulse control disorder unspecified. Plan: No change from initial note. Assessment: Vital Signs/I&O: Vital Signs Date Time Temp Pulse Resp B/P (MAP) Pulse Ox O2 Delivery O2 Flow Rate FiO2 12/02/20 06:11 96.9 19 22 150/65 (93) 96 11/29/20 06:20 Room Air I & O 12/01/20 12/01/20 12/02/20 15:00 23:00 07:00 Intake Total 240 ml 560 ml Balance 240 ml 560 ml Labs: Laboratory Tests Test 12/01/20 11:40 12/01/20 16:57 12/01/20 19:13 12/02/20 07:36 Glucose (Fingerstick) 152 mg/dL (70-99) H 60 mg/dL (70-99) L 213 mg/dL (70-99) H 110 mg/dL (70-99) H Current Medications: Meds: Laboratory Tests Test 12/01/20 11:40 12/01/20 16:57 12/01/20 19:13 12/02/20 07:36 Glucose (Fingerstick) 152 mg/dL 60 mg/dL 213 mg/dL 110 mg/dL Current Medications Medications (Trade) Dose Ordered Sig/Carmina Route PRN Reason Start Time Stop Time Status Last Admin Dose Admin Acetaminophen (Tylenol) 650 mg PRN Q6HRS PRN PO MILD PAIN / TEMP > 100.3'F 11/03/20 23:15 Cancel Multi-Ingredient Ointment (Analgesic [place]) 1 estrellita PRN QID PRN TP MUSCLE PAIN 11/03/20 23:15 Al Hydroxide/Mg Hydroxide (Mylanta Plus Xs) 15 ml PRN AFTMEALHC PRN PO DYSPEPSIA 11/03/20 23:15 11/23/20 16:07 Magnesium Hydroxide (Milk Of Magnesia) 2,400 mg PRN QHS PRN PO CONSTIPATION 11/03/20 23:15 Levothyroxine Sodium (Synthroid) 25 mcg DAILY06 PO 11/04/20 06:00 12/02/20 05:49 Pantoprazole Sodium (Protonix) 40 mg DAILYAC PO 11/04/20 07:30 12/01/20 08:13 Acetaminophen (Tylenol) 650 mg PRN Q4HRS PRN PO PAIN 11/04/20 00:45 11/24/20 18:37 Aspirin (Aspirin Chewable) 81 mg DAILYWBKFT PO 11/04/20 08:00 12/01/20 08:14 Hydroxyzine Pamoate (Vistaril) 25 mg PRN Q6HRS PRN PO agitation/anxiety 11/04/20 00:45 11/29/20 19:49 Melatonin (Melatonin) 3 mg HS PO 11/04/20 21:00 12/01/20 19:56 Nystatin (Nystop) 1 estrellita PRN BID PRN TP RASH 11/04/20 00:45 Polyethylene Glycol (miraLAX) 17 gm DAILY PO 11/04/20 09:00 12/01/20 08:13 Quetiapine Fumarate (SEROquel) 25 mg BID PO 11/04/20 09:00 11/15/20 21:52 DC 11/15/20 19:38 Quetiapine Fumarate (SEROquel) 100 mg TID PO 11/04/20 09:00 12/01/20 07:15 DC 11/30/20 19:47 Trazodone HCl (Desyrel) 100 mg HS PO 11/04/20 21:00 12/01/20 19:53 Non-Formulary Medication (Ergocalciferol (Vitamin D2) (Vitamin D2)) 1,250 mcg WEEKLY PO 11/04/20 09:00 11/04/20 15:01 DC Citalopram Hydrobromide (CeleXA) 40 mg DAILY PO 11/04/20 09:00 11/05/20 18:18 DC 11/05/20 08:22 Fenofibrate (Tricor) 145 mg DAILY PO 11/04/20 09:00 12/01/20 08:13 Non-Formulary Medication (Guanfacine Hcl ) 1 tab BID PO 11/04/20 09:00 11/08/20 18:18 DC Non-Formulary Medication (Insulin Aspart (Novolog)) 9 unit TIDWMEALS SQ 11/04/20 08:00 UNV Non-Formulary Medication (Insulin Glargine,Hum.rec.anlog (Lantus Solostar)) 20 unit QHS SQ 11/04/20 21:00 UNV Non-Formulary Medication (Menthol/Zinc Oxide (Calmoseptine Ointment)) 71 gm BID TP 11/04/20 09:00 11/04/20 14:56 DC Insulin Glargine (Lantus Syringe) 20 unit QHS SQ 11/04/20 21:00 11/19/20 10:32 DC 11/18/20 20:56 Insulin Human Lispro (HumaLOG) 9 units TIDWMEALS SQ 11/04/20 08:00 11/19/20 10:33 DC 11/19/20 08:00 Vitamin D (Vitamin D3) 50,000 unit WEEKLY PO 11/05/20 09:00 11/26/20 08:57 Diphenhydramine HCl (Benadryl) 50 mg PRN Q6HRS PRN PO RASH 11/05/20 11:30 11/17/20 17:46 Oxcarbazepine (Trileptal) 300 mg BID PO 11/05/20 21:00 11/07/20 16:24 DC 11/07/20 09:08 Fluvoxamine Maleate (Luvox) 50 mg QHS PO 11/05/20 21:00 11/13/20 17:24 DC 11/12/20 19:30 Levofloxacin (Levaquin) 250 mg DAILY06 PO 11/06/20 16:00 11/10/20 06:01 DC 11/10/20 05:30 Lactobacillus Rhamnosus (Culturelle) 1 cap BID PO 11/07/20 21:00 12/01/20 19:53 Olanzapine (ZyPREXA ZYDIS) 5 mg PRN Q2HR PRN PO PSYCHOSIS 11/08/20 17:00 12/01/20 11:06 Carbamazepine (TEGretol) 200 mg QHS PO 11/08/20 21:00 12/01/20 19:53 Carbamazepine (TEGretol) 100 mg DAILY PO 11/12/20 09:00 12/01/20 08:13 Fluvoxamine Maleate (Luvox) 75 mg QHS PO 11/13/20 21:00 11/16/20 17:16 DC 11/15/20 19:38 Quetiapine Fumarate (SEROquel) 50 mg DAILY PO 11/16/20 09:00 12/01/20 07:16 DC 11/30/20 09:00 Quetiapine Fumarate (SEROquel) 25 mg BID@1300,1700 PO 11/16/20 13:00 12/01/20 07:16 DC 11/30/20 13:00 Fluvoxamine Maleate (Luvox) 100 mg QHS PO 11/16/20 21:00 12/01/20 18:25 DC 11/30/20 19:47 Insulin Glargine (Lantus Syringe) 30 unit QHS SQ 11/19/20 21:00 12/01/20 21:17 Insulin Human Lispro (HumaLOG) 12 units TIDWMEALS SQ 11/19/20 12:00 12/01/20 12:16 Trazodone HCl (Desyrel) 25 mg 1700 PO 11/24/20 17:00 11/23/20 17:15 DC Trazodone HCl (Desyrel) 25 mg 1700 PO 11/23/20 17:15 12/01/20 17:09 Trazodone HCl (Desyrel) 50 mg PRN QHS PRN PO INSOMNIA, MAY REPEAT X1 11/23/20 21:15 11/26/20 01:47 Quetiapine Fumarate (SEROquel) 100 mg 0900,1400 PO 12/01/20 09:00 12/01/20 14:27 Quetiapine Fumarate (SEROquel) 100 mg QHS PO 12/01/20 21:00 12/01/20 19:57 Quetiapine Fumarate (SEROquel) 50 mg 0900,1400 PO 12/01/20 09:00 12/01/20 14:27 Fluvoxamine Maleate (Luvox) 100 mg QHS PO 12/01/20 21:00 12/01/20 19:54 Fluvoxamine Maleate (Luvox) 25 mg HS PO 12/01/20 21:00 12/01/20 19:55 Current Medications Medications (Trade) Dose Ordered Sig/Carmina Route PRN Reason Start Time Stop Time Status Last Admin Dose Admin Quetiapine Fumarate (SEROquel) 100 mg 0900,1400 PO 12/01/20 09:00 12/01/20 14:27 Quetiapine Fumarate (SEROquel) 100 mg QHS PO 12/01/20 21:00 12/01/20 19:57 Quetiapine Fumarate (SEROquel) 50 mg 0900,1400 PO 12/01/20 09:00 12/01/20 14:27 Fluvoxamine Maleate (Luvox) 100 mg QHS PO 12/01/20 21:00 12/01/20 19:54 Fluvoxamine Maleate (Luvox) 25 mg HS PO 12/01/20 21:00 12/01/20 19:55 I have reviewed the current psychotropics carefully including drug interactions. Risk benefit ratio favors no change other than as noted in my dictated progress note. Diagnosis: Problems: (1) Bipolar affective, mixed, sev w/ psych (2) Anxiety disorder, unspecified (3) Impulse control disorder (4) Obsessive compulsive disorder IDA LAINEZ MD Dec 02, 2020 07:58
[2020-12-02] MEDS: FENOFIBRATE NANOCRYSTALLIZED 145 MG TABLET PO SCH (08:35)
[2020-12-02] MEDS: PANTOPRAZOLE 40 MG TABLET. PO SCH (08:35)
[2020-12-02] MEDS: ASPIRIN CHEWABLE 81 MG TABLET. PO SCH (08:35)
[2020-12-02] MEDS: QUEtiapine 50 MG TABLET. PO SCH ×2 (08:35→14:00)
[2020-12-02] MEDS: QUEtiapine 100 MG TABLET. PO SCH ×3 (08:35→19:59)
[2020-12-02] MEDS: carBAMazepine 100 MG TAB.CHEW PO SCH (08:36)
[2020-12-02] MEDS: LACTOBACILLUS RHAMNOSUS GG 1 CAPSULE. PO SCH ×2 (08:36→19:59)
[2020-12-02] MEDS: INSULIN LISPRO 300 UNITS/3 ML VIAL. SQ SCH ×3 (08:38→17:00)
[2020-12-02] MEDS: POLYETHYLENE GLYCOL 3350 17 GM PACKET. PO SCH (09:00)
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
--- NOTE | 2020-12-02 12:14 | NUR ---
[facility] Social Work Discharge Planning Form Patient Name QAMAR FIGUEROA Admit Date: 03 November 2020 DISCHARGE PLAN Discharge Destination: Pt to discharge back to [facility] Care Assessment: N/A Level II Assessment: N/A Transportation: Facility scheduled transport for 1500 Special Instructions/Notes: Please fax all discharge orders, discharge medications, and discharge summary to the fax number listed below. DISCHARGE TO FACILITY Facility: [facility] Address: [id number] [place] [address] Contact Name: Chioma SW: Contact Name: Please contact the nurse caring for pt upon admission. PCP: Dr. Wendi Conde
[2020-12-02 16:05] VITALS: BP 131/59
[2020-12-02] MEDS: traZODone 50 MG TABLET. PO SCH (17:00)
--- NOTE | 2020-12-02 18:00 | NUR ---
Patient in room at time of assessment. Patient is calm and cooperative with no complaints. Patient takes medications whole with no problems. No further concerns at this time. Patient continues to yell out at times but is easily redirected.
[2020-12-02] MEDS: MELATONIN 3 MG TABLET PO SCH (19:59)
[2020-12-02] MEDS: INSULIN GLARGINE SYRINGE. SQ SCH (20:01)
[2020-12-02] MEDS: carBAMazepine 200 MG TABLET PO SCH (21:00)
[2020-12-02] MEDS: traZODone 100 MG TABLET. PO SCH (21:00)
--- NOTE | 2020-12-02 21:03 | PDOC ---
Exam Note: Marcelo Note: Please also refer to the separate dictated note~for this date of service dictated separately.~Patient seen individually. Discussed the patient with Nursing staff reviewed the chart.~Reviewed interim history and current functioning. Reviewed vital signs,~Labs/ Radiology~and current medications noted below. Continue current treatment with the changes noted in the dictated addendum note Assessment: Vital Signs/I&O: Vital Signs Date Time Temp Pulse Resp B/P (MAP) Pulse Ox O2 Delivery O2 Flow Rate FiO2 12/02/20 16:05 97.3 79 18 131/59 (83) 96 11/29/20 06:20 Room Air I & O 12/01/20 12/01/20 12/02/20 15:00 23:00 07:00 Intake Total 240 ml 560 ml Balance 240 ml 560 ml Labs: Laboratory Tests Test 12/02/20 07:36 12/02/20 11:58 12/02/20 16:55 12/02/20 16:58 Glucose (Fingerstick) 110 mg/dL (70-99) H 231 mg/dL (70-99) H 79 mg/dL (70-99) 82 mg/dL (70-99) Test 12/02/20 19:29 Glucose (Fingerstick) 186 mg/dL (70-99) H Current Medications: Meds: Laboratory Tests Test 12/02/20 07:36 12/02/20 11:58 12/02/20 16:55 12/02/20 16:58 Glucose (Fingerstick) 110 mg/dL 231 mg/dL 79 mg/dL 82 mg/dL Test 12/02/20 19:29 Glucose (Fingerstick) 186 mg/dL Current Medications Medications (Trade) Dose Ordered Sig/Carmina Route PRN Reason Start Time Stop Time Status Last Admin Dose Admin Acetaminophen (Tylenol) 650 mg PRN Q6HRS PRN PO MILD PAIN / TEMP > 100.3'F 11/03/20 23:15 Cancel Multi-Ingredient Ointment (Analgesic [place]) 1 estrellita PRN QID PRN TP MUSCLE PAIN 11/03/20 23:15 Al Hydroxide/Mg Hydroxide (Mylanta Plus Xs) 15 ml PRN AFTMEALHC PRN PO DYSPEPSIA 11/03/20 23:15 11/23/20 16:07 Magnesium Hydroxide (Milk Of Magnesia) 2,400 mg PRN QHS PRN PO CONSTIPATION 11/03/20 23:15 Levothyroxine Sodium (Synthroid) 25 mcg DAILY06 PO 11/04/20 06:00 12/02/20 05:49 Pantoprazole Sodium (Protonix) 40 mg DAILYAC PO 11/04/20 07:30 12/02/20 08:35 Acetaminophen (Tylenol) 650 mg PRN Q4HRS PRN PO PAIN 11/04/20 00:45 11/24/20 18:37 Aspirin (Aspirin Chewable) 81 mg DAILYWBKFT PO 11/04/20 08:00 12/02/20 08:35 Hydroxyzine Pamoate (Vistaril) 25 mg PRN Q6HRS PRN PO agitation/anxiety 11/04/20 00:45 11/29/20 19:49 Melatonin (Melatonin) 3 mg HS PO 11/04/20 21:00 12/02/20 19:59 Nystatin (Nystop) 1 estrellita PRN BID PRN TP RASH 11/04/20 00:45 Polyethylene Glycol (miraLAX) 17 gm DAILY PO 11/04/20 09:00 12/02/20 09:00 Quetiapine Fumarate (SEROquel) 25 mg BID PO 11/04/20 09:00 11/15/20 21:52 DC 11/15/20 19:38 Quetiapine Fumarate (SEROquel) 100 mg TID PO 11/04/20 09:00 12/01/20 07:15 DC 11/30/20 19:47 Trazodone HCl (Desyrel) 100 mg HS PO 11/04/20 21:00 12/01/20 19:53 Non-Formulary Medication (Ergocalciferol (Vitamin D2) (Vitamin D2)) 1,250 mcg WEEKLY PO 11/04/20 09:00 11/04/20 15:01 DC Citalopram Hydrobromide (CeleXA) 40 mg DAILY PO 11/04/20 09:00 11/05/20 18:18 DC 11/05/20 08:22 Fenofibrate (Tricor) 145 mg DAILY PO 11/04/20 09:00 12/02/20 08:35 Non-Formulary Medication (Guanfacine Hcl ) 1 tab BID PO 11/04/20 09:00 11/08/20 18:18 DC Non-Formulary Medication (Insulin Aspart (Novolog)) 9 unit TIDWMEALS SQ 11/04/20 08:00 UNV Non-Formulary Medication (Insulin Glargine,Hum.rec.anlog (Lantus Solostar)) 20 unit QHS SQ 11/04/20 21:00 UNV Non-Formulary Medication (Menthol/Zinc Oxide (Calmoseptine Ointment)) 71 gm BID TP 11/04/20 09:00 11/04/20 14:56 DC Insulin Glargine (Lantus Syringe) 20 unit QHS SQ 11/04/20 21:00 11/19/20 10:32 DC 11/18/20 20:56 Insulin Human Lispro (HumaLOG) 9 units TIDWMEALS SQ 11/04/20 08:00 11/19/20 10:33 DC 11/19/20 08:00 Vitamin D (Vitamin D3) 50,000 unit WEEKLY PO 11/05/20 09:00 11/26/20 08:57 Diphenhydramine HCl (Benadryl) 50 mg PRN Q6HRS PRN PO RASH 11/05/20 11:30 11/17/20 17:46 Oxcarbazepine (Trileptal) 300 mg BID PO 11/05/20 21:00 11/07/20 16:24 DC 11/07/20 09:08 Fluvoxamine Maleate (Luvox) 50 mg QHS PO 11/05/20 21:00 11/13/20 17:24 DC 11/12/20 19:30 Levofloxacin (Levaquin) 250 mg DAILY06 PO 11/06/20 16:00 11/10/20 06:01 DC 11/10/20 05:30 Lactobacillus Rhamnosus (Culturelle) 1 cap BID PO 11/07/20 21:00 12/02/20 19:59 Olanzapine (ZyPREXA ZYDIS) 5 mg PRN Q2HR PRN PO PSYCHOSIS 11/08/20 17:00 12/01/20 11:06 Carbamazepine (TEGretol) 200 mg QHS PO 11/08/20 21:00 12/01/20 19:53 Carbamazepine (TEGretol) 100 mg DAILY PO 11/12/20 09:00 12/02/20 08:36 Fluvoxamine Maleate (Luvox) 75 mg QHS PO 11/13/20 21:00 11/16/20 17:16 DC 11/15/20 19:38 Quetiapine Fumarate (SEROquel) 50 mg DAILY PO 11/16/20 09:00 12/01/20 07:16 DC 11/30/20 09:00 Quetiapine Fumarate (SEROquel) 25 mg BID@1300,1700 PO 11/16/20 13:00 12/01/20 07:16 DC 11/30/20 13:00 Fluvoxamine Maleate (Luvox) 100 mg QHS PO 11/16/20 21:00 12/01/20 18:25 DC 11/30/20 19:47 Insulin Glargine (Lantus Syringe) 30 unit QHS SQ 11/19/20 21:00 12/02/20 20:01 Insulin Human Lispro (HumaLOG) 12 units TIDWMEALS SQ 11/19/20 12:00 12/02/20 12:14 Trazodone HCl (Desyrel) 25 mg 1700 PO 11/24/20 17:00 11/23/20 17:15 DC Trazodone HCl (Desyrel) 25 mg 1700 PO 11/23/20 17:15 12/02/20 17:00 Trazodone HCl (Desyrel) 50 mg PRN QHS PRN PO INSOMNIA, MAY REPEAT X1 11/23/20 21:15 11/26/20 01:47 Quetiapine Fumarate (SEROquel) 100 mg 0900,1400 PO 12/01/20 09:00 12/02/20 14:00 Quetiapine Fumarate (SEROquel) 100 mg QHS PO 12/01/20 21:00 12/02/20 19:59 Quetiapine Fumarate (SEROquel) 50 mg 0900,1400 PO 12/01/20 09:00 12/02/20 14:00 Fluvoxamine Maleate (Luvox) 100 mg QHS PO 12/01/20 21:00 12/02/20 20:00 Fluvoxamine Maleate (Luvox) 25 mg HS PO 12/01/20 21:00 12/02/20 19:59 I have reviewed the current psychotropics carefully including drug interactions. Risk benefit ratio favors no change other than as noted in my dictated progress note. Diagnosis: Problems: (1) Obsessive compulsive disorder (2) Impulse control disorder (3) Anxiety disorder, unspecified (4) Bipolar affective, mixed, sev w/ psych IDA LAINEZ MD Dec 02, 2020 21:03
--- NOTE | 2020-12-02 23:13 | NUR ---
This evening pt was active on unit she was frequently at window yelling at staff to call Ricky. Meds were taken whole without difficulty and she went to bed without difficulty.
[2020-12-03] MEDS: LEVOTHYROXINE 25 MCG TABLET. PO SCH (05:06)
[2020-12-03 05:40] VITALS: BP 117/54
[2020-12-03] MEDS: INSULIN LISPRO 300 UNITS/3 ML VIAL. SQ SCH (08:00)
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
[2020-12-03] MEDS: LACTOBACILLUS RHAMNOSUS GG 1 CAPSULE. PO SCH (08:36)
[2020-12-03] MEDS: PANTOPRAZOLE 40 MG TABLET. PO SCH (08:36)
[2020-12-03] MEDS: ASPIRIN CHEWABLE 81 MG TABLET. PO SCH (08:36)
[2020-12-03] MEDS: QUEtiapine 50 MG TABLET. PO SCH (08:36)
[2020-12-03] MEDS: FENOFIBRATE NANOCRYSTALLIZED 145 MG TABLET PO SCH (08:36)
[2020-12-03] MEDS: carBAMazepine 100 MG TAB.CHEW PO SCH (08:36)
[2020-12-03] MEDS: POLYETHYLENE GLYCOL 3350 17 GM PACKET. PO SCH (08:42)
[2020-12-03] MEDS: CHOLECALCIFEROL (VITAMIN D3) 50,000 UNIT CAPSULE PO SCH (08:47)
[2020-12-03] MEDS: QUEtiapine 100 MG TABLET. PO SCH (08:47)
--- NOTE | 2020-12-03 09:33 | NUR ---
Patient in room sitting on edge of bed at time of assessment. Patient cooperative and calm takes medications whole with no problems. Patient is anxious to go home. She is yelling out some today but more just anxious to go home. Patient not displaying any behaviors and has no complaints. No further concerns at this time.
--- NOTE | 2020-12-03 12:32 | NUR ---
Transition Record was faxed to follow-up provider with the following elements: Reason for admission, procedures, tests, principal diagnosis, pending studies, patient instructions, 07/05 contact information for unit, phone number to obtain pending test results, plan for follow-up care, physician follow-up, advanced directive information, and medication list with dose, duration and instructions. This information was included in the following documents: History and physical, lab results, study results, progress notes, social work planning form, DC instruction form, patient visit summary, and medication reconciliation form. Date & time record faxed:12/02/20 1300 Record faxed to:Heladio Dalal Tate Record discussed with/ report given to: Ramona
--- NOTE | 2020-12-03 21:02 | PDOC ---
Exam Note: Marcelo Note: Please also refer to the separate dictated note~for this date of service dictated separately.~Patient seen individually. Discussed the patient with Nursing staff reviewed the chart.~Reviewed interim history and current functioning. Reviewed vital signs,~Labs/ Radiology~and current medications noted below. Continue current treatment with the changes noted in the dictated addendum note Assessment: Vital Signs/I&O: Vital Signs Date Time Temp Pulse Resp B/P (MAP) Pulse Ox O2 Delivery O2 Flow Rate FiO2 12/03/20 05:40 97.4 68 20 117/54 (75) 95 11/29/20 06:20 Room Air I & O 12/02/20 12/02/20 12/03/20 15:00 23:00 07:00 Intake Total 360 ml 360 ml 120 ml Balance 360 ml 360 ml 120 ml Labs: Laboratory Tests Test 12/03/20 07:21 12/03/20 12:00 Glucose (Fingerstick) 103 mg/dL (70-99) H 147 mg/dL (70-99) H Current Medications: Meds: Laboratory Tests Test 12/03/20 07:21 12/03/20 12:00 Glucose (Fingerstick) 103 mg/dL 147 mg/dL Current Medications Medications (Trade) Dose Ordered Sig/Carmina Route PRN Reason Start Time Stop Time Status Last Admin Dose Admin Acetaminophen (Tylenol) 650 mg PRN Q6HRS PRN PO MILD PAIN / TEMP > 100.3'F 11/03/20 23:15 Cancel Multi-Ingredient Ointment (Analgesic [place]) 1 estrellita PRN QID PRN TP MUSCLE PAIN 11/03/20 23:15 12/03/20 12:46 DC Al Hydroxide/Mg Hydroxide (Mylanta Plus Xs) 15 ml PRN AFTMEALHC PRN PO DYSPEPSIA 11/03/20 23:15 12/03/20 12:46 DC 11/23/20 16:07 Magnesium Hydroxide (Milk Of Magnesia) 2,400 mg PRN QHS PRN PO CONSTIPATION 11/03/20 23:15 12/03/20 12:46 DC Levothyroxine Sodium (Synthroid) 25 mcg DAILY06 PO 11/04/20 06:00 12/03/20 12:46 DC 12/03/20 05:06 Pantoprazole Sodium (Protonix) 40 mg DAILYAC PO 11/04/20 07:30 12/03/20 12:46 DC 12/03/20 08:36 Acetaminophen (Tylenol) 650 mg PRN Q4HRS PRN PO PAIN 11/04/20 00:45 12/03/20 12:46 DC 11/24/20 18:37 Aspirin (Aspirin Chewable) 81 mg DAILYWBKFT PO 11/04/20 08:00 12/03/20 12:46 DC 12/03/20 08:36 Hydroxyzine Pamoate (Vistaril) 25 mg PRN Q6HRS PRN PO agitation/anxiety 11/04/20 00:45 12/03/20 12:46 DC 11/29/20 19:49 Melatonin (Melatonin) 3 mg HS PO 11/04/20 21:00 12/03/20 12:46 DC 12/02/20 19:59 Nystatin (Nystop) 1 estrellita PRN BID PRN TP RASH 11/04/20 00:45 12/03/20 12:46 DC Polyethylene Glycol (miraLAX) 17 gm DAILY PO 11/04/20 09:00 12/03/20 12:46 DC 12/03/20 08:42 Quetiapine Fumarate (SEROquel) 25 mg BID PO 11/04/20 09:00 11/15/20 21:52 DC 11/15/20 19:38 Quetiapine Fumarate (SEROquel) 100 mg TID PO 11/04/20 09:00 12/01/20 07:15 DC 11/30/20 19:47 Trazodone HCl (Desyrel) 100 mg HS PO 11/04/20 21:00 12/03/20 12:46 DC 12/02/20 21:00 Non-Formulary Medication (Ergocalciferol (Vitamin D2) (Vitamin D2)) 1,250 mcg WEEKLY PO 11/04/20 09:00 11/04/20 15:01 DC Citalopram Hydrobromide (CeleXA) 40 mg DAILY PO 11/04/20 09:00 11/05/20 18:18 DC 11/05/20 08:22 Fenofibrate (Tricor) 145 mg DAILY PO 11/04/20 09:00 12/03/20 12:46 DC 12/03/20 08:36 Non-Formulary Medication (Guanfacine Hcl ) 1 tab BID PO 11/04/20 09:00 11/08/20 18:18 DC Non-Formulary Medication (Insulin Aspart (Novolog)) 9 unit TIDWMEALS SQ 11/04/20 08:00 UNV Non-Formulary Medication (Insulin Glargine,Hum.rec.anlog (Lantus Solostar)) 20 unit QHS SQ 11/04/20 21:00 UNV Non-Formulary Medication (Menthol/Zinc Oxide (Calmoseptine Ointment)) 71 gm BID TP 11/04/20 09:00 11/04/20 14:56 DC Insulin Glargine (Lantus Syringe) 20 unit QHS SQ 11/04/20 21:00 11/19/20 10:32 DC 11/18/20 20:56 Insulin Human Lispro (HumaLOG) 9 units TIDWMEALS SQ 11/04/20 08:00 11/19/20 10:33 DC 11/19/20 08:00 Vitamin D (Vitamin D3) 50,000 unit WEEKLY PO 11/05/20 09:00 12/03/20 12:46 DC 12/03/20 08:47 Diphenhydramine HCl (Benadryl) 50 mg PRN Q6HRS PRN PO RASH 11/05/20 11:30 12/03/20 12:46 DC 11/17/20 17:46 Oxcarbazepine (Trileptal) 300 mg BID PO 11/05/20 21:00 11/07/20 16:24 DC 11/07/20 09:08 Fluvoxamine Maleate (Luvox) 50 mg QHS PO 11/05/20 21:00 11/13/20 17:24 DC 11/12/20 19:30 Levofloxacin (Levaquin) 250 mg DAILY06 PO 11/06/20 16:00 11/10/20 06:01 DC 11/10/20 05:30 Lactobacillus Rhamnosus (Culturelle) 1 cap BID PO 11/07/20 21:00 12/03/20 12:46 DC 12/03/20 08:36 Olanzapine (ZyPREXA ZYDIS) 5 mg PRN Q2HR PRN PO PSYCHOSIS 11/08/20 17:00 12/03/20 12:46 DC 12/01/20 11:06 Carbamazepine (TEGretol) 200 mg QHS PO 11/08/20 21:00 12/03/20 12:46 DC 12/02/20 21:00 Carbamazepine (TEGretol) 100 mg DAILY PO 11/12/20 09:00 12/03/20 12:46 DC 12/03/20 08:36 Fluvoxamine Maleate (Luvox) 75 mg QHS PO 11/13/20 21:00 11/16/20 17:16 DC 11/15/20 19:38 Quetiapine Fumarate (SEROquel) 50 mg DAILY PO 11/16/20 09:00 12/01/20 07:16 DC 11/30/20 09:00 Quetiapine Fumarate (SEROquel) 25 mg BID@1300,1700 PO 11/16/20 13:00 12/01/20 07:16 DC 11/30/20 13:00 Fluvoxamine Maleate (Luvox) 100 mg QHS PO 11/16/20 21:00 12/01/20 18:25 DC 11/30/20 19:47 Insulin Glargine (Lantus Syringe) 30 unit QHS SQ 11/19/20 21:00 12/03/20 12:46 DC 12/02/20 20:01 Insulin Human Lispro (HumaLOG) 12 units TIDWMEALS SQ 11/19/20 12:00 12/03/20 12:46 DC 12/03/20 08:00 Trazodone HCl (Desyrel) 25 mg 1700 PO 11/24/20 17:00 11/23/20 17:15 DC Trazodone HCl (Desyrel) 25 mg 1700 PO 11/23/20 17:15 12/03/20 12:46 DC 12/02/20 17:00 Trazodone HCl (Desyrel) 50 mg PRN QHS PRN PO INSOMNIA, MAY REPEAT X1 11/23/20 21:15 12/03/20 12:46 DC 11/26/20 01:47 Quetiapine Fumarate (SEROquel) 100 mg 0900,1400 PO 12/01/20 09:00 12/03/20 12:46 DC 12/03/20 08:47 Quetiapine Fumarate (SEROquel) 100 mg QHS PO 12/01/20 21:00 12/03/20 12:46 DC 12/02/20 19:59 Quetiapine Fumarate (SEROquel) 50 mg 0900,1400 PO 12/01/20 09:00 12/03/20 12:46 DC 12/03/20 08:36 Fluvoxamine Maleate (Luvox) 100 mg QHS PO 12/01/20 21:00 12/03/20 12:46 DC 12/02/20 20:00 Fluvoxamine Maleate (Luvox) 25 mg HS PO 12/01/20 21:00 12/03/20 12:46 DC 12/02/20 19:59 I have reviewed the current psychotropics carefully including drug interactions. Risk benefit ratio favors no change other than as noted in my dictated progress note. Diagnosis: Problems: (1) Impulse control disorder (2) Anxiety disorder, unspecified (3) Bipolar affective, mixed, sev w/ psych (4) Obsessive compulsive disorder IDA LAINEZ MD Dec 03, 2020 21:02
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
== END 2020-12-03 12:30 | DRG 885 ==
LOC: GEROPSY 22:42
PROVIDERS: ADMIT Psychiatry & Neurology Psychiatry; ATTEND Psychiatry & Neurology Psychiatry
DX: F31.60 Bipolar disorder, current episode mixed, unspecified (principal); F79 Unspecified intellectual disabilities; N39.0 Urinary tract infection, site not specified; F03.90 Unspecified dementia, unspecified severity, without behavioral disturbance, psychotic disturbance, mood disturbance, and anxiety; E03.9 Hypothyroidism, unspecified; E11.9 Type 2 diabetes mellitus without complications; E78.5 Hyperlipidemia, unspecified; F25.9 Schizoaffective disorder, unspecified; F41.9 Anxiety disorder, unspecified; F42.9 Obsessive-compulsive disorder, unspecified; F63.9 Impulse disorder, unspecified; G25.0 Essential tremor; G47.00 Insomnia, unspecified; I10 Essential (primary) hypertension; I25.10 Atherosclerotic heart disease of native coronary artery without angina pectoris; M19.90 Unspecified osteoarthritis, unspecified site; M81.0 Age-related osteoporosis without current pathological fracture; Z79.4 Long term (current) use of insulin; Z79.899 Other long term (current) drug therapy; Z85.3 Personal history of malignant neoplasm of breast; Z87.440 Personal history of urinary (tract) infections; Z90.10 Acquired absence of unspecified breast and nipple; Z20.822 Contact with and (suspected) exposure to COVID-19; K21.9 Gastro-esophageal reflux disease without esophagitis; L40.9 Psoriasis, unspecified
CPT/HCPCS: 36415; 78306; 80053; 80061; 80156; 81001; 82306; 82607; 82947; 83036; 83540; 83550; 83735; 84436; 84443; 84480; 85025; 85379; 86592; 87077; 87086; 87186; 93005; A9503; J1815; Q0163; Q0177; U0003; 97530